=== PATIENT | male | born 1970 | race Caucasian/White ===

== ENCOUNTER 2017-09-14 09:04 | Emergency (ER) | payer BC, SELFPAY ==
[2017-09-14 09:22] VITALS: BP 149/94; PULSE 76; RESP 18; TEMP 37; O2SAT 97; BMI 31.4
--- NOTE | 2017-09-14 09:23 | HMH.EDUTC ---
[facility] [place] Clinical Impression: Lymphadenopathy, inguinal Disposition: Home, Self-Care Condition on Discharge: Good Instructions: DI for Lymphadenopathy Additional Instructions: Warm compresses. F/U with PCP if not improving Prescriptions: Doxycycline Monohydrate 100 mg PO BID 10 Days #20 tab Time of Disposition: 09:35 Medical Decision Making - Gabo Inquiry Pt receiving controlled substance: No [facility] [place] - General Stated complaint: knot in right groin Time Seen by Provider: 09/14/17 09:23 - History of Present Illness Provider Complaint: Patient noticed a knot in his right groin a few weeks ago. It seemed larger initially, but is getting smaller. However, has occasional episodes of pain. Pain has occurred after intercourse and yesterday after lifting at work. No bulging in the area. No worsening of pain with bearing down such as bowel movements. No dysuria. No discharge. No concern for STDs. Onset (ago): week(s) (2) Location: pelvis, genitals Radiation: non-radiation Relieving factors: none Exacerbating factors: none Associated symptoms: denies other symptoms Treatments prior to arrival: none - Related Data Previous Rx's Medication Instructions Recorded Doxycycline Monohydrate 100 mg PO BID 10 Days #20 tab 09/14/17 Allergies Allergy/AdvReac Type Severity Reaction Status Date / Time aspirin Allergy Verified 09/14/17 09:16 codeine Allergy Verified 09/14/17 09:16 [facility] History I have reviewed the patient's past medical history: Yes ROS Obtained: Yes All systems reviewed & no additional complaints - Constitutional Constitutional: Denies body ache, Denies chills, Denies fatigue, Denies fever(s) - Gastrointestinal Gastrointestingal: Denies: abdominal pain, diarrhea, vomiting - Genitourinary Male Genitourinary: Denies difficulty urinating, Denies genital lesions, Denies blood in semen, Denies hematuria, Denies decreased urination, Denies painful ejaculations Physical Exam - General General appearance: alert, in no apparent distress - Chest Chest inspection: Present: normal inspection, symmetric chest wall rise. Absent: tenderness - Respiratory Respiratory exam: Present: normal lung sounds bilaterally - Cardiovascular Cardiovascular exam: Present: regular rate, normal rhythm. Absent: JVD - Abdominal Exam Abdominal exam: Present: soft. Absent: distention, tenderness Comment: enlarged right inguinal node overlying ligament of Treitz with mild tenderness but mobile and not erythematous - exam: Absent: urethral discharge - Expanded Exam exam: Absent: inguinal hernia - Extremities Exam Extremities exam: Present: normal inspection, full ROM - Back Exam Back exam: Present: normal inspection. Absent: CVA tenderness (R), CVA tenderness (L) - Neurological Exam Neurological exam: Present: alert, oriented X3 - Psychiatric Psychiatric exam: Present: normal affect, normal mood - Skin Skin exam: Present: warm, dry, intact - Lymphatic Lymphatic Findings: R inguinal node tender
--- NOTE | 2017-09-14 09:28 | ED_ITS ---
[facility] [place] Clinical Impression: Lymphadenopathy, inguinal Disposition: Home, Self-Care Condition on Discharge: Good Instructions: DI for Lymphadenopathy Additional Instructions: Warm compresses. F/U with PCP if not improving Prescriptions: Doxycycline Monohydrate 100 mg PO BID 10 Days #20 tab Time of Disposition: 09:35 Medical Decision Making - Gabo Inquiry Pt receiving controlled substance: No [facility] [place] - General Stated complaint: knot in right groin Time Seen by Provider: 09/14/17 09:23 - History of Present Illness Provider Complaint: Patient noticed a knot in his right groin a few weeks ago. It seemed larger initially, but is getting smaller. However, has occasional episodes of pain. Pain has occurred after intercourse and yesterday after lifting at work. No bulging in the area. No worsening of pain with bearing down such as bowel movements. No dysuria. No discharge. No concern for STDs. Onset (ago): week(s) (2) Location: pelvis, genitals Radiation: non-radiation Relieving factors: none Exacerbating factors: none Associated symptoms: denies other symptoms Treatments prior to arrival: none - Related Data Previous Rx's Medication Instructions Recorded Doxycycline Monohydrate 100 mg PO BID 10 Days #20 tab 09/14/17 Allergies Allergy/AdvReac Type Severity Reaction Status Date / Time aspirin Allergy Verified 09/14/17 09:16 codeine Allergy Verified 09/14/17 09:16 [facility] History I have reviewed the patient's past medical history: Yes ROS Obtained: Yes All systems reviewed & no additional complaints - Constitutional Constitutional: Denies body ache, Denies chills, Denies fatigue, Denies fever(s) - Gastrointestinal Gastrointestingal: Denies: abdominal pain, diarrhea, vomiting - Genitourinary Male Genitourinary: Denies difficulty urinating, Denies genital lesions, Denies blood in semen, Denies hematuria, Denies decreased urination, Denies painful ejaculations Physical Exam - General General appearance: alert, in no apparent distress - Chest Chest inspection: Present: normal inspection, symmetric chest wall rise. Absent : tenderness - Respiratory Respiratory exam: Present: normal lung sounds bilaterally - Cardiovascular Cardiovascular exam: Present: regular rate, normal rhythm. Absent: JVD - Abdominal Exam Abdominal exam: Present: soft. Absent: distention, tenderness Comment: enlarged right inguinal node overlying ligament of Treitz with mild tenderness but mobile and not erythematous - exam: Absent: urethral discharge - Expanded Exam exam: Absent: inguinal hernia - Extremities Exam Extremities exam: Present: normal inspection, full ROM - Back Exam Back exam: Present: normal inspection. Absent: CVA tenderness (R), CVA tenderness (L) - Neurological Exam Neurological exam: Present: alert, oriented X3 - Psychiatric Psychiatric exam: Present: normal affect, normal mood - Skin Skin exam: Present: warm, dry, intact - Lymphatic Lymphatic Findings: R inguinal node tender
[2017-09-14 09:37] VITALS: BP 142/86; PULSE 72; RESP 18; TEMP 36.9; O2SAT 99
== END 2017-09-14 09:40 | disposition home or self-care (01) ==
PROVIDERS: Emergency Provider Physician Assistant
DX: R59.0 Localized enlarged lymph nodes (principal); Z88.6 Allergy status to analgesic agent
CPT/HCPCS: 99201

== ENCOUNTER 2020-07-01 10:06 | Emergency (ER) | payer BC, SELFPAY ==
[2020-07-01 10:10] VITALS: BP 188/105; PULSE 58; RESP 20; TEMP 36.5; O2SAT 98; BMI 31.4
--- NOTE | 2020-07-01 10:22 | HMH.EDUTC ---
[facility] [place] Impression: Exposure to COVID-19 virus Disposition: Home, Self-Care Condition on Discharge: Good Instructions: Preventing the Spread of Coronavirus Discharge Instructions Referrals: PCP,No [Primary Care Provider] - Time of Disposition: 10:26 Medical Decision Making - Gabo Inquiry Pt receiving controlled substance: No Orders (Tests/Meds): ORDERS Category Date Time Status Covid-19 Nasal PCR Sendout P&C Routine Lab 07/01/20 10:10 Ordered [facility] [place] - General Stated complaint: covid test for work Time Seen by Provider: 07/01/20 10:22 - History of Present Illness Provider Complaint: Patient needs COVID test to return to work. Was exposed at work and has been quarantined for 1 week. Relieving factors: none Exacerbating factors: none Associated symptoms: denies other symptoms Treatments prior to arrival: none - Related Data Allergies Allergy/AdvReac Type Severity Reaction Status Date / Time aspirin Allergy Verified 11/18/17 11:42 codeine Allergy Verified 11/18/17 11:42 [facility] History - Hepatitis A Screen Attestation statement:: This patient has been screened for Hepatitis A risk factors. I have reviewed the patient's past medical history: Yes Medical History: Denies:: Cancer, Diabetes Mellitus Type 1, Diabetes Mellitus Type 2, MRSA Other Surgeries: Yes: No Previous Surgery Amputation: No Fractures: No - Social History Smoking Status: Current every day smoker Tobacco Type: cigarettes # Packs/Day (cigarettes): 1 Alcohol Intake: never Occupational Status: employed Household Members: family Family Hx:: No significant family history ROS Obtained: Yes All systems reviewed & no additional complaints Physical Exam - General General appearance: alert, in no apparent distress - Head Head exam: atraumatic, normocephalic, normal inspection - Eye Eye exam: Present: normal appearance, PERRL, EOMI - ENT ENT exam: Present: normal exam, normal oropharynx, mucous membranes moist, TM's normal bilaterally, normal external ear exam - Neck Neck exam: Present: normal inspection, full ROM, trachea midline. Absent: meningismus, lymphadenopathy - Chest Chest inspection: Present: normal inspection, symmetric chest wall rise. Absent: tenderness - Respiratory Respiratory exam: Present: normal lung sounds bilaterally. Absent: respiratory distress - Cardiovascular Cardiovascular exam: Present: regular rate, normal rhythm. Absent: JVD - Abdominal Exam Abdominal exam: Present: soft, normal bowel sounds. Absent: distention, tenderness, guarding - Extremities Exam Extremities exam: Present: normal inspection, full ROM, normal capillary refill. Absent: calf tenderness - Back Exam Back exam: Present: normal inspection. Absent: tenderness - Neurological Exam Neurological exam: Present: alert, oriented X3 - Psychiatric Psychiatric exam: Present: normal affect, normal mood - Skin Skin exam: Present: warm, dry, intact, normal color - Lymphatic Lymphatic Findings: no adenopathy
[2020-07-01 10:40] VITALS: BP 188/105; PULSE 58; RESP 20; TEMP 36.5; O2SAT 98
[2020-07-02 11:53] LABS: Covid-19 Nasal PCR Sendout P&C Negative
== END 2020-07-01 10:42 | disposition home or self-care (01) ==
PROVIDERS: Emergency Provider Physician Assistant
DX: Z20.822 Contact with and (suspected) exposure to COVID-19 (principal); F17.210 Nicotine dependence, cigarettes, uncomplicated
CPT/HCPCS: 99202; G0463; U0004

== ENCOUNTER 2020-09-05 11:25 | Emergency (ER) | payer BC, SELFPAY ==
--- NOTE | 2020-09-05 11:18 | ECG_ITS ---
APPROVED REPORT Exam: Resting ECG HR:68 bpm ECG Measurements Heart Rate 68 AXES IN 148 P 46 QRSd 98 QRS -41 QT 392 T 34 QTc 416 Conclusion Normal sinus rhythm Left axis deviation Septal infarct, age undetermined Abnormal ECG Electronically signed by : Robert Reddy, 09/05/2020 17:20:22
[2020-09-05 11:26] VITALS: BP 185/119; PULSE 71; RESP 28; TEMP 37.3; O2SAT 97; BMI 31.4
--- NOTE | 2020-09-05 11:33 | XR_ITS ---
PROCEDURE: XR CHEST 2V CLINICAL HISTORY: CHEST PAIN COMPARISON: No exams were available for comparison FINDINGS: The cardiomediastinal silhouette and pulmonary vascularity are within normal limits. The lungs are clear without infiltrates, suspicious nodules, or pleural effusions. No acute bony abnormalities. IMPRESSION: No acute findings. Dictated by: Mateus Tong MD 09/05/2020 12:14 Mateus Tong MD in [place] 09/05/2020 12:15
[2020-09-05 11:49] LABS: Adenovirus,PCR Not Detected (NotDetected); Bordetella Pertussis Not Detected (NotDetected); Chlamydophila Pneumoniae, PCR Not Detected (NotDetected); Coronavirus 19, PCR Not Detected (NotDetected); Coronavirus 229E Not Detected (NotDetected); Coronavirus NL63 Not Detected (NotDetected); Coronavirus OC43 Not Detected (NotDetected); Coronovirus HKU1,PCR Not Detected (NotDetected); Human Metapneumovirus Not Detected (NotDetected); Influenza A, PCR Not Detected (NotDetected); Influenza AH1, 2009 Not Detected (NotDetected); Influenza AH1, PCR Not Detected (NotDetected); Influenza AH3,PCR Not Detected (NotDetected); Influenza B, PCR Not Detected (NotDetected); Mycoplasma Pneumoniae, PCR Not Detected (NotDetected); Parainfluenza 1, PCR Not Detected (NotDetected); Parainfluenza 2, PCR Not Detected (NotDetected); Parainfluenza 3, PCR Not Detected (NotDetected); Parainfluenza 4, PCR Not Detected (NotDetected); Respiratory Syncytial Virus Not Detected (NotDetected); Rhinovirus/Enterovirus Not Detected (NotDetected)
[2020-09-05 11:50] LABS: Basophils % 0.4 % (0.1-2.0); Eosinophils # 0.1 K/mm3 (0.0-0.4); Eosinophils % 0.9 % (0.1-12.0); Hematocrit 52.5 % (42.0-52.0); Hemoglobin 17.5 g/dL (14.1-18.0); Lymphocytes # 1.4 K/mm3 (0.7-4.5); Mean Corpuscular HGB Conc 33.2 g/dL (31.8-35.4); Mean Corpuscular Hemoglobin 30.9 pg (27.0-31.2); Mean Corpuscular Volume 92.9 fl (80-94); Mean Platelet Volume 8.8 fl (7.4-10.4); Monocytes # 0.6 K/mm3 (0.1-1.0); Monocytes % 11.1 % (1.7-9.3); Neutrophils # 3.5 K/mm3 (1.8-7.8); Neutrophils % 62.6 % (37.0-80.0); Platelet Count 176 K/mm3 (142-424); Red Blood Count 5.65 M/mm3 (4.60-6.20); Red Cell Distribution Width 13.7 % (11.5-17.5); White Blood Count 5.6 K/mm3 (4.8-10.8)
[2020-09-05 11:54] LABS: Chloride 107 mmol/L (98-107); Potassium 3.8 mmoL/L (3.5-5.1); Sodium 140 mmol/L (136-145)
[2020-09-05 11:57] LABS: Anion Gap 10.8 mEq/L (5-15); Blood Urea Nitrogen 8 mg/dl (9-20); Calcium 10.5 mg/dl (8.4-10.2); Carbon Dioxide 26 mmol/L (22.0-30.0); Creatinine Clearance Estimated 158 mL/min (50-200); Estimated Glomerular Filt Rate 102 ml/min (>60); GFR (African American) 123 ML/MIN (>60); Glucose 120 mg/dl (74-100)
[2020-09-05 11:58] LABS: Lactic Acid 1.7 mmol/L (0.7-2.1)
--- NOTE | 2020-09-05 12:00 | HMH.EDCP ---
ED Disposition Clinical Impression: URI (upper respiratory infection) Qualifiers: URI type: unspecified viral URI Qualified Code(s): J06.9 - Acute upper respiratory infection, unspecified Disposition: Home, Self-Care Condition on Discharge: Good Instructions: DI for Viral Upper Respiratory Infection -- Adult Referrals: David Todd MD [Staff Physician] - - Critical Care Critical Care Time: No Attestation: On 09/05/20, the high probability of a clinically significant, sudden or life threatening deterioration of the following system(s) required my full and direct attention, intervention and personal management. The time I documented below is in addition to time spent performing reported procedures but includes the following listed in this critical care notation. Medical Decision Making - Medical Records Medical records reviewed: Yes: I reviewed the patient's medical records. - Gabo Inquiry Pt receiving controlled substance: No Vital Signs: 09/05/20 11:26 09/05/20 12:01 09/05/20 12:31 Temperature 99.2 F Temperature Source Oral Pulse Rate 66 71 Pulse Rate [Radial] 71 Respiratory Rate 28 H 28 H 24 Blood Pressure 173/106 H 135/92 H Blood Pressure [Right Arm] 185/119 H Blood Pressure Mean 134 110 Blood Pressure Mean [Right Arm] 141 Blood Pressure Position [Right Arm] Sitting 02 Sat by Pulse Oximetry 97 96 96 Oxygen Delivery Method Room Air - Lab Data Lab Results 09/05/20 11:30: WBC 5.6, RBC 5.65, Hgb 17.5, Hct 52.5 H, MCV 92.9, MCH 30.9, MCHC 33.2, RDW 13.7, Plt Count 176, MPV 8.8, Neut % (Auto) 62.6, Lymph % (Auto) 25.0, [place] % (Auto) 11.1 H, Eos % (Auto) 0.9, Baso % (Auto) 0.4, Neut # (Auto) 3.5, Lymph # (Auto) 1.4, [place] # (Auto) 0.6, Eos # (Auto) 0.1, Baso # (Auto) 0.0 09/05/20 11:30: Sodium 140, Potassium 3.8, Chloride 107, Carbon Dioxide 26, Anion Gap 10.8, BUN 8 L, Creatinine 0.80, Estimated Creat Clear 158, Estimated GFR 102, Est GFR ( Amer) 123, Glucose 120 H, Calcium 10.5 H, Troponin I < 0.01 09/05/20 11:30: Lactate 1.7 Result diagrams: 09/05/20 11:30 09/05/20 11:30 Orders (Tests/Meds): ORDERS Category Date Time Status Full Resp Panel w/COVID ([facility]) Routine Lab 09/05/20 11:35 Received Troponin I Q3H Lab 09/05/20 14:45 Ordered Troponin I Q3H Lab 09/05/20 17:45 Ordered Blood Culture Stat Micro 09/05/20 11:30 Received - Radiology Data #1 Image(s): Chest Image Reviewed: Yes I reviewed the patient's radiology results, Yes I reviewed the patient's radiology image w/the ED provider Preliminary Findings: Normal/NAD - ECG Data Tracing #1 No ventricular rate of 68 bpm, normal SD interval 140 ms, normal QTC, sinus rhythm with left axis deviation, nonspecific changes ECG initial impression date: 09/05/20 ECG initial impression time: 11:20 - Reevaluation(s) Time: 13:13 Reevaluation #1: On reevaluation, patient is feeling better. Afebrile. No obvious sign of infection. I do believe symptoms are consistent with upper respiratory infection. We did obtain respiratory panel, however the patient states that he does not want to wait for the results. We will notify him if there are any significant abnormalities. Patient was given quarantine precautions per CDC guidelines. Given strict return precautions. Verbalized understanding. Medical Decision Narrative: 49-year-old male presented to the emergency department for evaluation of fever. Patient did take antipyretics prior to arrival. Work-up initiated. Chest Pain HPI - General Chief Complaint: Chest Pain Stated Complaint: CHEST PAIN Time Seen by Provider: 09/05/20 11:30 Mode of Arrival: Family Vehicle Limitations: No Limitations Description of Symptoms (Recalled from ER Triage Doc. by RN): TO ED PER PVT CAR WITH C/O FEVER OF 101 TODAY, PT ALSO C/O CHEST PRESSURE, COUGH STARTING WEDS SEEN AT [facility] AND DX WITH PLEURISY. STATES FEVER STARTED TODAY. - History of Present Illness
[2020-09-05 12:01] VITALS: BP 173/106; PULSE 66; RESP 28; O2SAT 96
[2020-09-05 12:15] LABS: Troponin I < 0.01 ng/ml (0.00-0.034)
[2020-09-05 12:31] VITALS: BP 135/92; PULSE 71; RESP 24; O2SAT 96
[2020-09-05 13:58] VITALS: BP 136/93; PULSE 76; RESP 18; TEMP 36.6; O2SAT 98
== END 2020-09-05 13:59 | disposition home or self-care (01) ==
PROVIDERS: Emergency Provider Emergency Medicine
DX: J06.9 Acute upper respiratory infection, unspecified (principal); R07.9 Chest pain, unspecified; I10 Essential (primary) hypertension; Z20.822 Contact with and (suspected) exposure to COVID-19; F17.210 Nicotine dependence, cigarettes, uncomplicated; Z88.6 Allergy status to analgesic agent
CPT/HCPCS: 71046; 80048; 83605; 84484; 85025; 87040; 87581; 87633; 87798; 93005; 99283

== ENCOUNTER 2021-09-30 07:14 | Inpatient (IN) | payer OTHER, SELFPAY ==
[2021-09-30] VITALS (14 sets, daily range): BP systolic 145–176; BP diastolic 82–109; PULSE 74–87; RESP 15–26; TEMP 36.6–36.9; O2SAT 91–98; BMI 31.4; BMI 29.9
--- NOTE | 2021-09-30 07:21 | PC.NURSE ---
pt in room, vital signs obtained, warm blanket given. Call light within reach. Nurses are bedside at this time.
--- NOTE | 2021-09-30 07:32 | CT_ITS ---
PROCEDURE INFORMATION: Exam: CT Abdomen And Pelvis With Contrast Exam date and time: 09/30/2021 8:03 AM Age: 51 years old Clinical indication: Abdominal pain; Generalized; Additional info: Abd pain TECHNIQUE: Imaging protocol: Computed tomography of the abdomen and pelvis with contrast. Radiation optimization: All CT scans at this facility use at least one of these dose optimization techniques: automated exposure control; mA and/or kV adjustment per patient size (includes targeted exams where dose is matched to clinical indication); or iterative reconstruction. Contrast material: ISOVUE; Contrast volume: 75 ml; Contrast route: IV; COMPARISON: CR XR CHEST 2V 09/05/2020 11:43 AM FINDINGS: Liver: Mild diffuse fatty infiltration. No focal lesions. Gallbladder and bile ducts: Normal. No calcified stones. No ductal dilation. Pancreas: Normal. No ductal dilation. Spleen: Normal. No splenomegaly. Adrenal glands: Normal. No mass. Kidneys and ureters: Simple right cortical cyst, measuring 6.8 cm. Otherwise, unremarkable. No stones or hydronephrosis. Stomach and bowel: Inspissated stool and gas in the colon. Scattered diverticula of the descending and sigmoid colon. There is an abrupt transition in caliber at the junction of the descending and sigmoid. The sigmoid and rectum are otherwise decompressed. The small intestine is unremarkable. No inflammatory change. No obstruction. Appendix: No evidence for appendicitis. Intraperitoneal space: Unremarkable. No free air. No significant fluid collection. Arteries: Unremarkable. No abdominal aortic aneurysm. Lymph nodes: Unremarkable. No enlarged lymph nodes. Urinary bladder: Unremarkable as visualized. Reproductive: The prostate gland measures 5.2 cm transversely. Bones/joints: Unremarkable. No acute fracture. Soft tissues: Unremarkable. IMPRESSION: 1. Abrupt transition in caliber between the descending colon and sigmoid may be inflammatory or neoplastic. 2. Large amount of inspissated stool and gas in the ascending colon, transverse colon, and descending colon. The finding is probably secondary to the lesion at the junction of the descending and sigmoid. Differential considerations also include constipation. 3. Colonic diverticular disease without diverticulitis. 4. Mild prostatic enlargement. COMMENTS: Consistent with the [employer]'s Incidental Findings Committee white paper (J Am Vivien Radiol 2018): Any incidental renal lesion less than 1 cm or classified as too small to characterize, or any incidental cystic renal lesion characterized as simple-appearing, is likely benign. No follow-up imaging is recommended for these lesions per consensus recommendations based on imaging criteria.
[2021-09-30 07:45] LABS: Basophils # 0.2 K/mm3 (0-0.2); Basophils % 1.5 % (0.1-2.0); Eosinophils # 0.1 K/mm3 (0.0-0.4); Eosinophils % 0.3 % (0.1-12.0); Hematocrit 52.9 % (42.0-52.0); Hemoglobin 17.4 g/dL (14.1-18.0); Lymphocytes % 13.1 % (10-50); Mean Corpuscular HGB Conc 32.9 g/dL (31.8-35.4); Mean Corpuscular Hemoglobin 31.3 pg (27.0-31.2); Mean Corpuscular Volume 95.3 fl (80-94); Mean Platelet Volume 9.2 fl (7.4-10.4); Monocytes # 0.9 K/mm3 (0.1-1.0); Monocytes % 6.2 % (1.7-9.3); Neutrophils % 78.8 % (37.0-80.0); Platelet Count 260 K/mm3 (142-424); Red Blood Count 5.56 M/mm3 (4.60-6.20); Red Cell Distribution Width 13.8 % (11.5-17.5); White Blood Count 15.2 K/mm3 (4.8-10.8)
[2021-09-30 07:50] LABS: Chloride 106 mmol/L (98-107); Potassium 3.6 mmoL/L (3.5-5.1); Sodium 139 mmol/L (136-145)
[2021-09-30 07:52] LABS: Amylase 50 U/L (30-110); Blood Urea Nitrogen 15 mg/dl (9-20); Creatinine Clearance Estimated 137 mL/min (50-200); Estimated Glomerular Filt Rate 88 ml/min (>60); GFR (African American) 107 ML/MIN (>60); Lactic Acid 1.4 mmol/L (0.7-2.1)
[2021-09-30 07:53] LABS: Alanine Aminotransferase 24 U/L (12-78); Albumin Level 4.3 g/dl (3.5-5.0); Albumin/Globulin Ratio 1.3 (1.1-1.8); Alkaline Phosphatase 119 U/L (38-126); Anion Gap 11.6 mEq/L (5-15); Aspartate Amino Transferase 24 U/L (17-59); Bilirubin,Total 1.3 mg/dl (0.2-1.3); Calcium 9.9 mg/dl (8.4-10.2); Carbon Dioxide 25 mmol/L (22.0-30.0); Globulin 3.3 g/dL (1.3-3.2); Glucose 125 mg/dl (74-100); Lipase 25 U/L (23-300); Total Protein,Serum 7.6 g/dl (6.3-8.2)
--- NOTE | 2021-09-30 08:02 | HMH.EDGENADL ---
ED Disposition Clinical Impression: Mass of colon, Bilirubinuria, Renal cyst Abdominal pain Qualifiers: Abdominal location: unspecified location Qualified Code(s): R10.9 - Unspecified abdominal pain Leukocytosis Qualifiers: Leukocytosis type: unspecified Qualified Code(s): D72.829 - Elevated white blood cell count, unspecified Disposition: Admitted As Inpatient Condition on Discharge: Fair Instructions: DI for Acute Abdominal Pain Referrals: Brandy Ramírez [Primary Care Provider] - - Critical Care Critical Care Time: No Attestation: On 09/30/21, the high probability of a clinically significant, sudden or life threatening deterioration of the following system(s) required my full and direct attention, intervention and personal management. The time I documented below is in addition to time spent performing reported procedures but includes the following listed in this critical care notation. Medical Decision Making - Medical Records Medical records reviewed: Yes: I reviewed the patient's medical records. MR Comment: Reviewed CT report from [facility] 11/23/2020. Impression states findings highly concerning for sigmoid colon mass. Dilatation of the colon above this level also is suggestive of a mild degree of obstruction. Diverticulitis is felt less likely. Endoscopic correlation is recommended. Nonspecific adenopathy as well. - Gabo Inquiry Pt receiving controlled substance: Yes Gabo was queried for this patient: Yes Risks and benefits of using a controlled substance: were not discussed with pt by me Vital Signs: 09/30/21 07:16 09/30/21 08:00 09/30/21 08:30 Temperature 98.2 F Temperature Source Oral Pulse Rate 77 74 Pulse Rate [Radial] 85 Respiratory Rate 16 Blood Pressure 176/100 H 168/103 H Blood Pressure [Right Arm] 170/109 H Blood Pressure Mean [Right Arm] 129 Blood Pressure Position [Right Arm] Sitting 02 Sat by Pulse Oximetry 98 95 96 Oxygen Delivery Method Room Air Room Air Room Air - Lab Data Lab Results 09/30/21 07:25: WBC 15.2 H, RBC 5.56, Hgb 17.4, Hct 52.9 H, MCV 95.3 H, MCH 31.3 H, MCHC 32.9, RDW 13.8, Plt Count 260, MPV 9.2, Neut % (Auto) 78.8, Lymph % (Auto) 13.1, [place] % (Auto) 6.2, Eos % (Auto) 0.3, Baso % (Auto) 1.5, Neut # (Auto) 12.0 H, Lymph # (Auto) 2.0, [place] # (Auto) 0.9, Eos # (Auto) 0.1, Baso # (Auto) 0.2, Total Counted 100, Neutrophils % (Manual) 77 H, Lymphocytes % (Manual) 14, Monocytes % (Manual) 8, Basophils % (Manual) 1.0, Platelet Estimate Normal, RBC Morphology Normal 09/30/21 07:25: Sodium 139, Potassium 3.6, Chloride 106, Carbon Dioxide 25, Anion Gap 11.6, BUN 15, Creatinine 0.90, Estimated Creat Clear 137, Estimated GFR 88, Est GFR ( Amer) 107, Glucose 125 H, Calcium 9.9, Total Bilirubin 1.3, AST 24, ALT 24, Alkaline Phosphatase 119, Total Protein 7.6, Albumin 4.3, Globulin 3.3 H, Albumin/Globulin Ratio 1.3, Amylase 50, Lipase 25 09/30/21 07:25: Lactate 1.4 09/30/21 07:25: Total Creatine Kinase 40 L, C-Reactive Protein 9.5 H 09/30/21 08:36: Urine Color Anita, Urine Appearance Clear, Urine pH 6.0, Ur Specific [place] 1.025, Urine Protein Negative, Urine Glucose (UA) Negative, Urine Ketones Negative, Urine Blood Trace-l, Urine Nitrate Positive, Urine Bilirubin 1+ A, Urine Urobilinogen 4.0, Ur Leukocyte Esterase Negative, Urine RBC Occasional, Urine WBC None, Ur Squamous Epith Cells Occasional, Amorphous Sediment Trace, Urine Bacteria Trace Result diagrams: 09/30/21 07:25 09/30/21 07:25 Orders (Tests/Meds): ED MEDICATIONS Generic Name Dose Route Start Last Admin Trade Name Freq PRN Reason Stop Dose Admin Levofloxacin/Dextrose 750 mg in 150 mls @ 100 mls/hr 09/30/21 09:30 Levofloxacin 750mg/150ml Premix IV 10/14/21 09:29 Q24H SAVITA Metronidazole 500 mg in 100 mls @ 100 mls/hr 09/30/21 09:30 Flagyl 500mg/100ml Ivpb IV 10/14/21 09:29 Q8H SAVITA Discontinued Medications Generic Name Dose Route Start Last Admin
--- NOTE | 2021-09-30 08:03 | PC.NURSE ---
pt to Ct scan
[2021-09-30 08:11] LABS: MANUAL DIFFERENTIAL MANUAL DIFFERENTIAL (MANUAL DIFF)
--- NOTE | 2021-09-30 08:11 | PC.NURSE ---
pt returned from CT
[2021-09-30 08:14] LABS: Lymphocytes % 14 % (10-50); Monocytes % 8 % (2-9); Neutrophils % 77 % (42-76); Platelet Estimate Normal; RBC Morphology Normal; Total Cells Counted 100
--- NOTE | 2021-09-30 08:24 | PC.WOUNDNOTE ---
PT STATES HE IS STILL UNABLE TO PROVIDE A URINARY SPECIMEN
--- NOTE | 2021-09-30 08:27 | PC.NURSE ---
FAMILY AT BEDSIDE UPDATED ON PLAN OF CARE
--- NOTE | 2021-09-30 08:30 | PC.NURSE ---
called [facility] at this time to get a copy of patient's CT report from October 2020. Spoke with one of the nurses on the Med surg unit, she was going to look through patients chart and try to find the report and call us back. Awaiting call back at this time. Updated Dr. Cherry at this time.
--- NOTE | 2021-09-30 08:39 | PC.NURSE ---
Urine sent to lab
--- NOTE | 2021-09-30 08:44 | PC.NURSE ---
Mary with Psychiatric returned call and stated that she found a CT report on this patient from November 2020. She is going to fax over the report. Awaiting fax at this time. Dr. Cherry notified.
[2021-09-30 08:46] LABS: Appearance,Urine CLEAR (Clear); Blood, Urine TRACE-L (Negative); Color,Urine AMBER (Yellow); Glucose,Urine (UA) Negative (Negative); Ketones,Urine Negative (Negative); Leukocyte Esterase,Urine Negative (Negative); Microscopic, Urine URINE MICROSCOPIC (MICROSCOPIC); Nitrate,Urine POSITIVE (Negative); Protein,Urine Negative (Negative); Specific Gravity, Urine 1.025 (1.005-1.030)
--- NOTE | 2021-09-30 08:51 | PC.NURSE ---
called [facility] again at this time to get a Colonoscopy report from where patient had done back in August of 2020. Spoke with Mary again.
--- NOTE | 2021-09-30 09:04 | PC.NURSE ---
Colonoscopy report and CT reports were obtained from [facility]. Given to Dr. Cherry at this time.
[2021-09-30 09:09] LABS: Bilirubin,Urine 1+ (Negative)
[2021-09-30 09:11] LABS: Amorphous Sediment,Urine Trace /lpf; Bacteria,Urine Trace /lpf; RBC,Urine Occasional #/hpf (0-3); Squamous Epithelial Cell,Urine Occasional #/hpf (0-5)
--- NOTE | 2021-09-30 09:21 | PC.NURSE ---
Called creping machine operator helper for who is protection mgr for service. Dr. Russo is the protection mgr physician. He is in office today until noon, awaiting on hold at this time. Dr. Otero answered the call at this time. Speaking with Dr. Cherry at this time.
[2021-09-30 09:25] LABS: Creatine Kinase 40 U/L (55-170)
--- NOTE | 2021-09-30 09:28 | PC.NURSE ---
REESE GARCIA on phone with Dr. Russo
--- NOTE | 2021-09-30 09:30 | PC.NURSE ---
called butadiene compressor operator for who was flight control manager for surgery. They are paging at this time. Awaiting call back to the ER.
--- NOTE | 2021-09-30 09:30 | PC.NURSE ---
Dr. Ruiz returned call to the ER and is speaking with Dr. Cherry at this time.
[2021-09-30 09:31] LABS: C-Reactive Protein 9.5 mg/L (0-4)
--- NOTE | 2021-09-30 09:31 | PC.NURSE ---
ED MD on phone with conservation educator surgeon, Dr. Arrieta
--- NOTE | 2021-09-30 09:33 | PC.NURSE ---
pt is in the room laying back on the bed, vital signs obtained, call light given to patient. Nurse is bedside at this time.
--- NOTE | 2021-09-30 09:34 | PC.NURSE ---
Spoke with clubhouse attendant about admission. will get a bed.
[2021-09-30 09:37] LABS: Coronavirus 19, PCR Not Detected (NotDetected); Influenza A, PCR Not Detected (NotDetected); Influenza B, PCR Not Detected (NotDetected)
[2021-09-30 09:43] LABS: Erythrocyte Sedimentation Rate 10 mm/hr (0-20)
[2021-09-30 09:45] LABS: Procalcitonin 0.085 ng/mL (0.0-2.0)
--- NOTE | 2021-09-30 10:21 | PC.NURSE ---
REPORT CALLED TO FLOOR
--- NOTE | 2021-09-30 10:38 | PC.NURSE ---
Med Surg staff down here to take patient upstairs to inpatient room.
--- NOTE | 2021-09-30 11:08 | HMH.HP ---
*Admission Date: 09/30/21 <BrandenDavid 09/30/21 11:09> *Chief complaint: Abdominal pain <David Otero 09/30/21 11:09> *History of present illness: Mr. Lopez is a 51-year-old male who presented to the emergency room today after approximately 30 episodes of vomiting and nausea. He states last weekend he had diarrhea, but has not had a good bowel movement since then. He had a small soft bowel movement on Saturday. He was evaluated in the emergency room and an abdominal and pelvic CT showed a large amount of stool in the colon, but also an abrupt transition in the caliber between the descending colon and sigmoid colon which could be inflammatory versus neoplastic. The patient has had a work-up in the past for this possible colon mass. He states last October he went to the ER because he had not had a bowel movement in approximately 2 weeks. They gave him mag citrate and sent him home. This did not help. His [id number] then found him in the floor after he had passed out and took him back to the emergency room in [facility]. At that point, a CT was done and showed findings concerning for a sigmoid colon mass. The patient was seen by Dr. Rojas Le and a colonoscopy was performed. He found pronounced diverticulosis and poor bowel prep with no obvious mucosal abnormality. The patient states after the colonoscopy, he had no further problems until last weekend. He does not regularly follow with his PCP and he has had no further colonoscopies. When reviewing the colonoscopy report by Dr. Le, it stated they wanted to follow-up with a barium enema in 6 months. The patient states he recently lost his and has been very depressed and does not leave his home. <Christie Garcia 09/30/21 11:24> [facility] History I have reviewed the patient's past medical history: Yes <Christie Garcia 09/30/21 11:24> Medical History: Reports:: Depression <Christie Garcia 09/30/21 11:24> Reports:: Gastroesophageal Reflux Disease(GERD), Hyperlipidemia, Hypertension Denies:: Cancer, Diabetes Mellitus Type 1, Diabetes Mellitus Type 2, MRSA <David Otero 09/30/21 11:09> *Have you ever received a pneumonia vaccine?: No <David Otero 09/30/21 11:09> *Have you received a flu vaccine this season?: No <BrandenDavid Arianne 09/30/21 11:09> Other Surgeries: Yes: Other (Vasctomy) <RadhaChristie 09/30/21 11:24> Yes: No Previous Surgery <BrandenDavid Arianne 09/30/21 11:09> Amputation: No <BrandenShiraDavid 09/30/21 11:09> Fractures: No <BrandenShiraDavid 09/30/21 11:09> - *Social History Smoking Status: Current every day smoker <BrandenDavid 09/30/21 11:09> Tobacco Type: cigarettes <BrandenDavid 09/30/21 11:09> # Packs/Day (cigarettes): 1 <BrandenDavid 09/30/21 11:09> Alcohol Intake: never <BrandenDavid 09/30/21 11:09> *Occupational Status:: other <[place],David 09/30/21 11:09> Household Members: family <BrandenDavid 09/30/21 11:09> *Travel in the last 8 weeks: None <Christie Garcia 09/30/21 11:24> Family Hx:: No significant family history <BrandenDavid 09/30/21 11:09> Review of Systems - Constitutional Reports chills, Reports fever(s) <RadhaChristie 09/30/21 11:24> - Eyes Denies blurry vision, Denies double vision <Christie Garcia 09/30/21 11:24> - ENT Denies nasal congestion, Denies sore throat <Christie Garcia 09/30/21 11:24> - *Cardiovascular Denies chest pain, Denies shortness of breath <Christie Garcia 09/30/21 11:24> - *Respiratory Denies cough, Denies shortness of breath <Christie Garcia 09/30/21 11:24> - *Gastrointestinal Reports abdominal pain (left sided), Reports constipation, Reports nausea, Reports vomiting, Denies loose stools <Christie Garcia 09/30/21 11:24> - *Genitourinary Reports other (urine is dark), Denies difficulty urinating <Christie Garcia - 09/30/21 11:24> - *Musculoskeletal Denies joint pain
--- NOTE | 2021-09-30 11:47 | HMH.PHAINT ---
MEDICATION RECONCILIATION COMPLETE VIA EXTERNAL PHARMACY FILL HISTORY AND PATIENT INTERVIEW.
--- NOTE | 2021-09-30 11:48 | HMH.PHAVTE ---
[facility] Pharmacy VTE Monitoring - Patient Demographics Admission date: 09/30/21 Report Date: 09/30/21 Time: 11:48 Allergies/Adverse Reactions: Patient Allergies aspirin Allergy (Verified 11/18/17 11:42) codeine Allergy (Verified 11/18/17 11:42) Height: 1.8 m Weight: 97.636 kg Patient Problems: Current Active Problems Abdominal pain (Acute) Mass of colon (Acute) Leukocytosis (Acute) Bilirubinuria (Acute) Renal cyst (Acute) Vomiting (Acute) Hypertension (Chronic) Hyperlipemia (Chronic) Depressed (Chronic) - VTE Risk Labs: VTE Related Lab Results Hgb 17.4 g/dL (14.1-18.0) 09/30/21 07:25 Hct 52.9 % (42.0-52.0) H 09/30/21 07:25 Plt Count 260 K/mm3 (142-424) 09/30/21 07:25 BUN 15 mg/dl (9-20) 09/30/21 07:25 Creatinine 0.90 mg/dl (0.66-1.25) 09/30/21 07:25 Estimated Creat Clear 137 mL/min (50-200) 09/30/21 07:25 Was VTE Risk Assessment Performed: Yes VTE Score: 1 Clinical Trial Participant: No - Prophylaxis VTE Prophylaxis Ordered?: Yes Types of VTE Prophylaxis: TEDS Knee High, Pharmacological Location of Applied Device: Bilateral Lower Extremeties Pharmacologic Type: Enoxaparin
--- NOTE | 2021-09-30 17:01 | HMH.GSCON ---
*Admission Date: 09/30/21 *Reason for consult:: Large bowel obstruction. *History of present illness: Mr. Willis is a 51-year-old male that presents with near obstipation. Decreased frequency of bowel movement. Decreased frequency of flatus. Acute over the past week. However, patient reports occasional episodes over the past year. Colonoscopy completed at [facility]. Results not available for review. Patient does report that subsequent barium enema was requested. He is unaware of the results of that study. No family history of colon cancer or rectal cancer. No significant reports of personal diverticulitis. No other complaints. Patient's personal care has been affected by losing spouse in the past 3 to 4 months. Review of Systems - Review of Systems Review of systems:: pertinent systems reviewed and negative unless documented below - *Neurologic Reports weakness, Denies headache(s), Denies dizziness [facility] History Medical History: Reports:: Depression, Gastroesophageal Reflux Disease(GERD), Hyperlipidemia, Hypertension Denies:: Cancer, Diabetes Mellitus Type 1, Diabetes Mellitus Type 2, MRSA *Have you ever received a pneumonia vaccine?: No *Have you received a flu vaccine this season?: No Other Surgeries: Yes: No Previous Surgery, Other (Vasctomy) Amputation: No Fractures: No - *Social History Smoking Status: Current every day smoker Tobacco Type: cigarettes # Packs/Day (cigarettes): 1 Alcohol Intake: never *Occupational Status:: unemployed Housing: house Household Members: family *Travel in the last 8 weeks: None - Psychiatric History Pschychiatric History:: Reports:: Depression Family Hx:: No significant family history Meds Home Medications Medication Instructions Recorded Confirmed Type Atorvastatin Calcium [Lipitor 20mg 20 mg PO HS 09/30/21 09/30/21 History Tab] Buspirone HCl [Buspar 5mg tablet] 5 mg PO TID 09/30/21 09/30/21 History Escitalopram Oxalate [Lexapro] 10 mg PO DAILY 09/30/21 09/30/21 History Pantoprazole Sodium 40 mg PO HS 09/30/21 09/30/21 History Quetiapine Fumarate [Seroquel 100 mg PO HS 09/30/21 09/30/21 History 100mg tablet] lisinopriL [Lisinopril] 10 mg PO DAILY 09/30/21 09/30/21 History Allergies Allergy/AdvReac Type Severity Reaction Status Date / Time aspirin Allergy Verified 11/18/17 11:42 codeine Allergy Verified 11/18/17 11:42 Exam Vital signs and Labs for Last 24 Hours: Temp Pulse Resp BP Pulse Ox 98.4 F 75 15 173/108 H 92 L 09/30/21 16:00 09/30/21 16:00 09/30/21 16:00 09/30/21 16:00 09/30/21 16:00 Laboratory Results - last 24 hr 09/30/21 07:25: WBC 15.2 H, RBC 5.56, Hgb 17.4, Hct 52.9 H, MCV 95.3 H, MCH 31.3 H, MCHC 32.9, RDW 13.8, Plt Count 260, MPV 9.2, Neut % (Auto) 78.8, Lymph % (Auto) 13.1, [place] % (Auto) 6.2, Eos % (Auto) 0.3, Baso % (Auto) 1.5, Neut # (Auto) 12.0 H, Lymph # (Auto) 2.0, [place] # (Auto) 0.9, Eos # (Auto) 0.1, Baso # (Auto) 0.2, Total Counted 100, Neutrophils % (Manual) 77 H, Lymphocytes % (Manual) 14, Monocytes % (Manual) 8, Basophils % (Manual) 1.0, Platelet Estimate Normal, RBC Morphology Normal 09/30/21 07:25: Sodium 139, Potassium 3.6, Chloride 106, Carbon Dioxide 25, Anion Gap 11.6, BUN 15, Creatinine 0.90, Estimated Creat Clear 137, Estimated GFR 88, Est GFR ( Amer) 107, Glucose 125 H, Calcium 9.9, Total Bilirubin 1.3, AST 24, ALT 24, Alkaline Phosphatase 119, Total Protein 7.6, Albumin 4.3, Globulin 3.3 H, Albumin/Globulin Ratio 1.3, Amylase 50, Lipase 25 09/30/21 07:25: Lactate 1.4 09/30/21 07:25: Total Creatine Kinase 40 L, C-Reactive Protein 9.5 H 09/30/21 07:25: ESR 10 09/30/21 07:25: Procalcitonin 0.085 09/30/21 08:36: Urine Color [place], Urine Appearance Clear, Urine pH 6.0, Ur Specific [place] 1.025, Urine Protein Negative, Urine Glucose (UA) Negative, Urine Ketones Negative, Urine Blood Trace-l, Urine Nitrate Positive, Urine Bilirubin 1+ A, Urine Urobilinogen 4.0, Ur Leukocyte Esterase Ne
--- NOTE | 2021-09-30 17:15 | HMH.ITSTN ---
spoke to Eb and advised that this procedure will not be done till Saturday. She is going to let the DrBrendan know. Will be done Saturday with radiologists
--- NOTE | 2021-09-30 17:47 | PC.NURSE ---
PT IS RESTING IN BED. ALERT AND ORIENTED X4. MEDICATED PER MAR FOR DISCOMFORT AND NAUSEA. PT IS TAKING SIPS OF CLEAR LIQUIDS. LUNG SOUNDS CLEAR. ABDOMEN DISTENDED WITH RIGHT SIDED TENDERNESS. WILL CONTINUE TO MONITOR.
[2021-10-01] VITALS: BP 155/87; PULSE 85; RESP 22; TEMP 36.3; O2SAT 91
[2021-10-01 04:00] VITALS: BP 137/73; PULSE 78; RESP 20; TEMP 36.9; O2SAT 90
[2021-10-01 05:35] VITALS: BMI 30.4
[2021-10-01 07:44] LABS: Basophils # 0.1 K/mm3 (0-0.2); Basophils % 0.4 % (0.1-2.0); Eosinophils % 0.2 % (0.1-12.0); Hematocrit 46.6 % (42.0-52.0); Lymphocytes # 2.2 K/mm3 (0.7-4.5); Lymphocytes % 16.5 % (10-50); Mean Corpuscular HGB Conc 33.4 g/dL (31.8-35.4); Mean Corpuscular Hemoglobin 31.8 pg (27.0-31.2); Mean Platelet Volume 9.7 fl (7.4-10.4); Monocytes # 1.1 K/mm3 (0.1-1.0); Monocytes % 8.5 % (1.7-9.3); Neutrophils # 9.8 K/mm3 (1.8-7.8); Neutrophils % 74.4 % (37.0-80.0); Platelet Count 240 K/mm3 (142-424); Red Cell Distribution Width 13.8 % (11.5-17.5); White Blood Count 13.2 K/mm3 (4.8-10.8)
[2021-10-01 07:51] LABS: Chloride 107 mmol/L (98-107)
[2021-10-01 07:52] LABS: Potassium 3.9 mmoL/L (3.5-5.1); Sodium 136 mmol/L (136-145)
[2021-10-01 07:54] LABS: Blood Urea Nitrogen 18 mg/dl (9-20); Creatinine Clearance Estimated 149 mL/min (50-200); Estimated Glomerular Filt Rate 101 ml/min (>60); GFR (African American) 122 ML/MIN (>60)
[2021-10-01 07:55] LABS: Anion Gap 7.9 mEq/L (5-15); Calcium 9.3 mg/dl (8.4-10.2); Carbon Dioxide 25 mmol/L (22.0-30.0); Glucose 97 mg/dl (74-100)
[2021-10-01 08:00] VITALS: BP 146/86; PULSE 80; RESP 18; TEMP 36.7; O2SAT 90; O2SAT 91
--- NOTE | 2021-10-01 08:33 | HMH.ACPN2 ---
Internal Medicine - PN: Subj *Date: 10/01/21 *Time: 08:33 Interval history: Patient with no new complaints today. Nausea and vomiting have improved with treatment. He has taken a few sips of water. Exam Vital signs and Labs for Last 24 Hours: Temp Pulse Resp BP Pulse Ox 98.4 F 78 20 137/73 90 L 10/01/21 04:00 10/01/21 04:00 10/01/21 04:00 10/01/21 04:00 10/01/21 04:00 Laboratory Results - last 24 hr 09/30/21 07:25: Total Creatine Kinase 40 L, C-Reactive Protein 9.5 H 09/30/21 07:25: ESR 10 09/30/21 07:25: Procalcitonin 0.085 09/30/21 08:36: Urine Color [place], Urine Appearance Clear, Urine pH 6.0, Ur Specific [place] 1.025, Urine Protein Negative, Urine Glucose (UA) Negative, Urine Ketones Negative, Urine Blood Trace-l, Urine Nitrate Positive, Urine Bilirubin 1+ A, Urine Urobilinogen 4.0, Ur Leukocyte Esterase Negative, Urine RBC Occasional, Urine WBC None, Ur Squamous Epith Cells Occasional, Amorphous Sediment Trace, Urine Bacteria Trace 09/30/21 09:20: SARS-CoV-2 (PCR) Not detected, Influenza A Untype (PCR) Not detected, Influenza Type B (PCR) Not detected 10/01/21 06:50: Sodium 136, Potassium 3.9, Chloride 107, Carbon Dioxide 25, Anion Gap 7.9, BUN 18, Creatinine 0.80, Estimated Creat Clear 149, Estimated GFR 101, Est GFR ( Amer) 122, Glucose 97 D, Calcium 9.3 Vital Signs - 24 hr 09/30/21 09:00 09/30/21 09:30 09/30/21 09:53 Temperature Pulse Rate 75 77 75 Pulse Rate [Radial] Respiratory Rate Blood Pressure 176/105 H 173/105 H 145/84 H Blood Pressure [Right Arm] 02 Sat by Pulse Oximetry 95 95 91 L 09/30/21 10:00 09/30/21 10:30 09/30/21 10:36 Temperature Pulse Rate 77 78 74 Pulse Rate [Radial] Respiratory Rate Blood Pressure 147/82 H 151/82 H 162/96 H Blood Pressure [Right Arm] 02 Sat by Pulse Oximetry 92 L 92 L 94 L 09/30/21 10:44 09/30/21 10:55 09/30/21 16:00 Temperature 98 F 98.3 F 98.4 F Pulse Rate 87 Pulse Rate [Radial] 83 75 Respiratory Rate 26 H 17 15 Blood Pressure 175/100 H Blood Pressure [Right Arm] 162/96 H 173/108 H 02 Sat by Pulse Oximetry 93 L 92 L 09/30/21 19:55 09/30/21 20:00 10/01/21 00:00 Temperature 98.4 F 97.4 F L Pulse Rate Pulse Rate [Radial] 76 85 Respiratory Rate H 22 Blood Pressure Blood Pressure [Right Arm] 161/93 H 155/87 H 02 Sat by Pulse Oximetry 91 L 91 L 91 L 10/01/21 04:00 Temperature 98.4 F Pulse Rate Pulse Rate [Radial] 78 Respiratory Rate 20 Blood Pressure Blood Pressure [Right Arm] 137/73 02 Sat by Pulse Oximetry 90 L I & O for Last 24 hours: Intake & Output 09/28/21 09/29/21 09/30/21 10/01/21 23:59 23:59 23:59 23:59 Intake Total 941 / 941 405 / 405 Balance 941 / 941 405 / 405 Weight 215 lb 4 oz 217 lb 8 oz - Constitutional no acute distress - *Routine HEENT Exam Head: Present: normocephalic Eye: Present: EOMI, PERRL ENT: Present: mucous membranes moist - *Routine Neck Exam Present: supple. Absent: lymphadenopathy - *Routine Respiratory Exam Present: CTA bilaterally - *Routine Cardiovascular Exam Present: RRR - *Routine Abdominal Exam Present: soft, normoactive bowel sounds, tenderness (left sided, more in LLQ) - *Routine Extremities Exam Absent: cyanosis, clubbing, edema - *Routine Skin Exam Present: warm. Absent: rash - *Routine Neurological Exam Present: alert, oriented X3 Assessment and Plan (1) Abdominal pain Status: Acute Qualifiers: Abdominal location: unspecified location Qualified Code(s): R10.9 - Unspecified abdominal pain Category: Medical Code(s): R10.9 - Unspecified abdominal pain (2) Bilirubinuria Status: Acute Category: Medical Code(s): R82.2 - Biliuria (3) Leukocytosis Status: Acute Qualifiers: Leukocytosis type: unspecified Qualified Code(s): D72.829 - Elevated white blood cell count, unspecified Category: Medical Code(s): D72.829 - Elevated white blood cell count, unspecif
[2021-10-01 08:45] LABS: Hemoglobin 15.5 g/dL (14.1-18.0)
[2021-10-01 16:00] VITALS: BP 108/88; PULSE 75; RESP 16; TEMP 37.1; O2SAT 92
--- NOTE | 2021-10-01 17:58 | P.PN_ITS ---
Subjective Narrative: Mr. Willis is a 51-year-old male with partial large bowel obstruction secondary to suspected diverticular stricture. Passing flatus. Tolerating few sips. Abdominal pain and distention have improved. Labs improved. Progress Note: A&P (1) Abdominal pain Status: Acute (2) Bilirubinuria Status: Acute (3) Leukocytosis Status: Acute (4) Mass of colon Status: Acute (5) Renal cyst Status: Acute (6) Vomiting Status: Acute Assessment and Plan for All Diagnoses:: Large bowel obstruction. Suspected benign diverticular stricture. Pending Gastrografin enema tomorrow. Exam Vital signs and Labs for Last 24 Hours: Temp Pulse Resp BP Pulse Ox 98.1 F 80 18 146/86 H 91 L 10/01/21 08:00 10/01/21 08:00 10/01/21 08:00 10/01/21 08:00 10/01/21 08:00 Laboratory Results - last 24 hr 10/01/21 06:50: WBC 13.2 H, RBC 4.90, Hgb 15.5 D, Hct 46.6, MCV 95.0 H, MCH 31.8 H, MCHC 33.4, RDW 13.8, Plt Count 240, MPV 9.7, Neut % (Auto) 74.4, Lymph % (Auto) 16.5, [place] % (Auto) 8.5, Eos % (Auto) 0.2, Baso % (Auto) 0.4, Neut # (Auto) 9.8 H, Lymph # (Auto) 2.2, [place] # (Auto) 1.1 H, Eos # (Auto) 0.0, Baso # (Auto) 0.1 10/01/21 06:50: Sodium 136, Potassium 3.9, Chloride 107, Carbon Dioxide 25, Anion Gap 7.9, BUN 18, Creatinine 0.80, Estimated Creat Clear 149, Estimated GFR 101, Est GFR ( Amer) 122, Glucose 97 D, Calcium 9.3 I & O for Last 24 hours: Intake & Output 09/29/21 09/30/21 10/01/21 10/02/21 11:59 11:59 11:59 11:59 Intake Total 1346 / 1346 Balance 1346 / 1346 Weight 97.636 kg 98.656 kg - *Routine Abdominal Exam Comments: Soft. Nontender.
[2021-10-01 20:00] VITALS: BP 153/98; PULSE 80; RESP 18; TEMP 37.3; O2SAT 93
--- NOTE | 2021-10-02 03:47 | PC.NURSE ---
No acute changes. Pt has c/o pain in LLQ t/o shift, medicated per AUG. Pt states favorable results. Tolerating clear liquids well. No c/o n/v. Call light within reach.
[2021-10-02 04:00] VITALS: BP 138/87; PULSE 71; RESP 16; TEMP 37.2; O2SAT 94
[2021-10-02 04:31] VITALS: BMI 29.8
[2021-10-02 08:00] VITALS: BP 162/90; PULSE 70; RESP 17; TEMP 36.7; O2SAT 93
--- NOTE | 2021-10-02 09:31 | P.PN_ITS ---
Internal Medicine - PN: Subj *Date: 10/02/21 *Time: 09:31 Interval history: Patient with no new complaints today. Exam Vital signs and Labs for Last 24 Hours: Temp Pulse Resp BP Pulse Ox 98.0 F 70 17 162/90 H 93 L 10/02/21 08:00 10/02/21 08:00 10/02/21 08:00 10/02/21 08:00 10/02/21 08:00 I & O for Last 24 hours: Intake & Output 09/29/21 09/30/21 10/01/21 10/02/21 23:59 23:59 23:59 23:59 Intake Total 941 / 941 405 / 405 Balance 941 / 941 405 / 405 Weight 215 lb 4 oz 217 lb 8 oz 213 lb 6.4 oz - Constitutional no acute distress - *Routine Respiratory Exam Present: CTA bilaterally - *Routine Cardiovascular Exam Present: RRR Assessment and Plan (1) Abdominal pain Status: Acute Qualifiers: Abdominal location: unspecified location Qualified Code(s): R10.9 - Unspe cified abdominal pain Category: Medical Code(s): R10.9 - Unspecified abdominal pain (2) Bilirubinuria Status: Acute Category: Medical Code(s): R82.2 - Biliuria (3) Leukocytosis Status: Acute Qualifiers: Leukocytosis type: unspecified Qualified Code(s): D72.829 - Elevated white blood cell count, unspecified Category: Medical Code(s): D72.829 - Elevated white blood cell count, unspecified (4) Mass of colon Status: Acute Category: Medical Code(s): K63.89 - Other specified diseases of intestine (5) Renal cyst Status: Acute Category: Medical Code(s): N28.1 - Cyst of kidney, acquired (6) Vomiting Status: Acute Category: Medical Code(s): R11.10 - Vomiting, unspecified - Assessment and plan all Dx Assessment and Plan for all problems:: Patient to have gastrografin enema today.
[2021-10-02 12:09] LABS: CEA 4.2 ng/mL (0.0-4.7)
[2021-10-02 16:00] VITALS: BP 158/93; PULSE 72; RESP 17; TEMP 36.6; O2SAT 93
[2021-10-02 16:15] VITALS: BMI 29.8
--- NOTE | 2021-10-02 17:01 | PC.NURSE ---
PT TO ROOM 280 AT THIS TIME. NO C/O OR NEEDS NOTED.
--- NOTE | 2021-10-02 17:05 | FL_ITS ---
FINAL REPORT CLINICAL HISTORY: . large bowel obstruction 2:31 fluoro time FINDINGS: Gastrografin enema HISTORY: Abnormal CT scan. Colonic obstruction. PROCEDURE: Single-contrast Gastrografin was introduced by gravity drip. Spot and overhead films were obtained. FINDINGS: Label Designer film demonstrates diffuse gaseous distention of the proximal colon. There is a high-grade stricture of the proximal sigmoid colon with irregular borders. Contrast is identified to the level of the cecum. Evaluation of the transverse colon is significantly limited related to retained air. There is a large amount of retained stool within the ascending and descending colon which limits the study. No obvious stricture is identified proximal to the sigmoid colon. IMPRESSION: High-grade stricture of the proximal sigmoid colon with irregular borders highly worrisome for neoplasm. Endoscopic correlation recommended. Films reviewed , interpreted and dictated by Dr. Garcias. Transcribed by Nicholas Carter PA-C. Reviewed, Interpreted and Dictated by Arsenio Garcias III, MD Transcribed by TIMOTHY Casarez Authenticated by Arsenio Garcias III, MD on 10/02/2021 11:41:33 AM [facility]
--- NOTE | 2021-10-02 17:19 | PC.NURSE ---
patient moved to room 280 gave report to DANIA Wells
[2021-10-02 20:00] VITALS: BP 153/88; PULSE 78; RESP 19; TEMP 36.8; O2SAT 94
[2021-10-03] VITALS (17 sets, daily range): BP systolic 106–156; BP diastolic 66–96; PULSE 62–71; RESP 12–20; TEMP 36.3–37.1; O2SAT 93–98; BMI 29.7
--- NOTE | 2021-10-03 04:44 | PC.NURSE ---
PT HAS SLEPT OFF AND ON THROUGHTOUT THE NIGHT,SHE DENIES ANY PAIN AT HER KNEE,JUST SORE AND DECLINES ANY PAIN MEDICINE FOR IT,SHE DID TAKE SOME TYLENOL FOR A H/A,SHE HAD TAKEN HER OXYGEN OFF AND SAID IT WAS BURNING HER NOSE,HER SAT LEVEL ON RA WAS 90-92,REAPPLIED THE OXYGEN AT 2 LITERS PER N/C.NO DRAINAGE NOTED TO THE DRESSING,POLOR PACK AND KNEE MOBILIZER REMAIN IN PLACE,F/C DRAINING CLEAR YELLOW URINE
--- NOTE | 2021-10-03 04:54 | PC.NURSE ---
PT HAS SLEPT MOST OF THE NIGHT,UP TO BATHROOM THIS MORNING ANOTHER LIQUID STOOL,MEDICATED WITH MORPHINE 4 MG IVP FOR A PAIN OF 9,THIS HAS BEEN THE 2ND DOSE OF MORPHINE THIS SHIFT.BOWEL SOUNDS HYPERACTIVE,TENDER ON THE LEFT LOWER QUAD.
--- NOTE | 2021-10-03 06:28 | P.PN_ITS ---
Subjective Narrative: Patient is a 51-year-old who had presented with obstipation and decreased frequency of bowel movements and decreased flatus. He has had some symptoms intermittently over approximately 1 year but this became acutely more significant and severe over the past week leading up to his admission. This was noted on CT scan in November 2020 initially in [place] at [facility]. It appears as though he underwent flexible sigmoidoscopy by Dr. Rojas le which revealed no sigmoid mass. He did have a follow-up colonoscopy by Dr. Le in December 2020 which revealed no sigmoid mass but poor preparation in the region of the sigmoid. He was planning a follow-up barium enema in 6 months. Patient was admitted to this institution on 09/30/21 with obstipation and nausea. CT Scan revealed abrupt transition in caliber between descending colon and sigmoid: May be inflammatory or neoplastic. Large amount of and septated stool and gas in the a sending colon, transverse colon, and ascending colon. During this admission he was seen by the surgeon on-call over the weekend, Dr. Azar Arrieta. Patient underwent Gastrografin enema yesterday which revealed findings of high-grade stricture at the proximal sigmoid colon with irregular borders highly worrisome for neoplasm. Endoscopic correlation recommended. He has had no known history of diverticulitis. Surgical consultation was obtained for ongoing management. Progress Note: A&P (1) Abdominal pain Status: Acute (2) Bilirubinuria Status: Acute (3) Leukocytosis Status: Acute (4) Mass of colon Status: Acute (5) Renal cyst Status: Acute (6) Vomiting Status: Acute Assessment and plan: Likely plan for sigmoidoscopy for evaluation Exam Vital signs and Labs for Last 24 Hours: Temp Pulse Resp BP Pulse Ox 98.5 F 71 20 152/82 H 94 L 10/03/21 04:00 10/03/21 04:00 10/03/21 04:00 10/03/21 04:00 10/03/21 04:00 Laboratory Results - last 24 hr 10/01/21 06:50: Carcinoembryonic Ag 4.2 I & O for Last 24 hours: Intake & Output 09/30/21 10/01/21 10/02/21 10/03/21 11:59 11:59 11:59 11:59 Intake Total 1346 / 1346 120 / 120 950 / 950 Balance 1346 / 1346 120 / 120 950 / 950 Weight 215 lb 4 oz 217 lb 8 oz 213 lb 6.4 oz 212 lb 1 oz Microbiology Reports for the Last 24 Hours: Microbiology 09/30/21 09:45 Blood Blood Culture - Preliminary NO GROWTH AFTER 48 HOURS 09/30/21 09:45 Blood Blood Culture - Preliminary NO GROWTH AFTER 48 HOURS - *Routine Abdominal Exam Present: soft, tenderness Comments: Some tenderness in the left upper quadrant and left lower quadrant.
[2021-10-03 07:16] LABS: Basophils # 0.1 K/mm3 (0-0.2); Basophils % 0.7 % (0.1-2.0); Eosinophils # 0.1 K/mm3 (0.0-0.4); Eosinophils % 0.9 % (0.1-12.0); Hematocrit 45.5 % (42.0-52.0); Hemoglobin 14.9 g/dL (14.1-18.0); Lymphocytes # 2.2 K/mm3 (0.7-4.5); Lymphocytes % 18.9 % (10-50); Mean Corpuscular HGB Conc 32.7 g/dL (31.8-35.4); Mean Corpuscular Hemoglobin 31.2 pg (27.0-31.2); Mean Corpuscular Volume 95.4 fl (80-94); Mean Platelet Volume 9.1 fl (7.4-10.4); Monocytes # 1.1 K/mm3 (0.1-1.0); Neutrophils # 8.3 K/mm3 (1.8-7.8); Neutrophils % 70.6 % (37.0-80.0); Platelet Count 214 K/mm3 (142-424); Red Blood Count 4.77 M/mm3 (4.60-6.20); Red Cell Distribution Width 13.7 % (11.5-17.5); White Blood Count 11.8 K/mm3 (4.8-10.8)
[2021-10-03 07:47] LABS: Chloride 108 mmol/L (98-107); Sodium 134 mmol/L (136-145)
[2021-10-03 07:50] LABS: Blood Urea Nitrogen 13 mg/dl (9-20); Calcium 9.4 mg/dl (8.4-10.2); Carbon Dioxide 22 mmol/L (22.0-30.0); Creatinine Clearance Estimated 166 mL/min (50-200); Estimated Glomerular Filt Rate 118 ml/min (>60); GFR (African American) 143 ML/MIN (>60); Glucose 88 mg/dl (74-100)
--- NOTE | 2021-10-03 08:41 | HMH.ACPN2 ---
<Minal Olivera - Last Filed: 10/03/21 08:41> Internal Medicine - PN: Subj *Date: 10/03/21 *Time: 08:41 Interval history: Patient states he does not feel well today. He is n.p.o. for colonoscopy today. He has been seen by Dr. Rolando [email or web address] [email or web address] Who notes findings of Gastrografin enema yesterday revealing a high-grade stricture at the proximal sigmoid colon with irregular borders highly worrisome for neoplasm. Patient denies chest pain and shortness of breath. He ambulates to the bathroom without difficulty. Exam Vital signs and Labs for Last 24 Hours: Temp Pulse Resp BP Pulse Ox 98.5 F 71 20 152/82 H 94 L 10/03/21 04:00 10/03/21 04:00 10/03/21 04:00 10/03/21 04:00 10/03/21 04:00 Laboratory Results - last 24 hr 10/01/21 06:50: Carcinoembryonic Ag 4.2 10/03/21 06:50: WBC 11.8 H, RBC 4.77, Hgb 14.9, Hct 45.5, MCV 95.4 H, MCH 31.2, MCHC 32.7, RDW 13.7, Plt Count 214, MPV 9.1, Neut % (Auto) 70.6, Lymph % (Auto) 18.9, Bay % (Auto) 9.0, Eos % (Auto) 0.9, Baso % (Auto) 0.7, Neut # (Auto) 8.3 H, Lymph # (Auto) 2.2, Bay # (Auto) 1.1 H, Eos # (Auto) 0.1, Baso # (Auto) 0.1 10/03/21 06:50: Sodium 134 L, Potassium 4.0, Chloride 108 H, Carbon Dioxide 22, Anion Gap 8.0, BUN 13 D, Creatinine 0.70, Estimated Creat Clear 166, Estimated GFR 118, Est GFR ( Amer) 143, Glucose 88, Calcium 9.4 I & O for Last 24 hours: Intake & Output 09/30/21 10/01/21 10/02/21 10/03/21 11:59 11:59 11:59 11:59 Intake Total 1346 / 1346 120 / 120 2350 / 2350 Balance 1346 / 1346 120 / 120 2350 / 2350 Weight 215 lb 4 oz 217 lb 8 oz 213 lb 6.4 oz 212 lb 1 oz Microbiology Reports for the Last 24 Hours: Microbiology 09/30/21 09:45 Blood Blood Culture - Preliminary NO GROWTH AFTER 48 HOURS 09/30/21 09:45 Blood Blood Culture - Preliminary NO GROWTH AFTER 48 HOURS - Constitutional no acute distress - *Routine Respiratory Exam Present: CTA bilaterally (Anteriorly and posteriorly) - *Routine Cardiovascular Exam Present: RRR - *Routine Abdominal Exam Present: soft, normoactive bowel sounds, tenderness (In the left quadrants) - *Routine Extremities Exam Absent: edema, calf tenderness Assessment and Plan (1) Abdominal pain Status: Acute Qualifiers: Abdominal location: unspecified location Qualified Code(s): R10.9 - Unspecified abdominal pain Category: Medical Code(s): R10.9 - Unspecified abdominal pain (2) Bilirubinuria Status: Acute Category: Medical Code(s): R82.2 - Biliuria (3) Leukocytosis Status: Acute Qualifiers: Leukocytosis type: unspecified Qualified Code(s): D72.829 - Elevated white blood cell count, unspecified Category: Medical Code(s): D72.829 - Elevated white blood cell count, unspecified (4) Mass of colon Status: Acute Category: Medical Code(s): K63.89 - Other specified diseases of intestine (5) Renal cyst Status: Acute Category: Medical Code(s): N28.1 - Cyst of kidney, acquired (6) Vomiting Status: Acute Category: Medical Code(s): R11.10 - Vomiting, unspecified - Assessment and plan all Dx Assessment and Plan for all problems:: Patient continues to be followed by Dr. Marshall. Will have colonoscopy today. <David Otero - Last Filed: 10/03/21 08:51> Internal Medicine - PN: Subj *Date: 10/03/21 *Time: 08:49 Exam Vital signs and Labs for Last 24 Hours: Temp Pulse Resp BP Pulse Ox 98.5 F 71 20 152/82 H 94 L 10/03/21 04:00 10/03/21 04:00 10/03/21 04:00 10/03/21 04:00 10/03/21 04:00 Laboratory Results - last 24 hr 10/01/21 06:50: Carcinoembryonic Ag 4.2 10/03/21 06:50: WBC 11.8 H, RBC 4.77, Hgb 14.9, Hct 45.5, MCV 95.4 H, MCH 31.2, MCHC 32.7, RDW 13.7, Plt Count 214, MPV 9.1, Neut % (Auto) 70.6, Lymph % (Auto) 18.9, Bay % (Auto) 9.0, Eos % (Auto) 0.9, Baso % (Auto) 0.7, Neut # (Auto) 8.3 H, Lymph # (Auto) 2.2, Bay # (Auto) 1.1 H, Eos # (Aut
--- NOTE | 2021-10-03 11:31 | P.PN_ITS ---
Internal Medicine - PN: Subj *Date: 10/03/21 *Time: 11:31 Exam Vital signs and Labs for Last 24 Hours: Temp Pulse Resp BP Pulse Ox 98.7 F 69 17 143/88 H 93 L 10/03/21 08:00 10/03/21 08:00 10/03/21 08:00 10/03/21 08:00 10/03/21 08:00 Laboratory Results - last 24 hr 10/01/21 06:50: Carcinoembryonic Ag 4.2 10/03/21 06:50: WBC 11.8 H, RBC 4.77, Hgb 14.9, Hct 45.5, MCV 95.4 H, MCH 31.2, MCHC 32.7, RDW 13.7, Plt Count 214, MPV 9.1, Neut % (Auto) 70.6, Lymph % (Auto) 18.9, Terrell % (Auto) 9.0, Eos % (Auto) 0.9, Baso % (Auto) 0.7, Neut # (Auto) 8.3 H, Lymph # (Auto) 2.2, Terrell # (Auto) 1.1 H, Eos # (Auto) 0.1, Baso # (Auto) 0.1 10/03/21 06:50: Sodium 134 L, Potassium 4.0, Chloride 108 H, Carbon Dioxide 22, Anion Gap 8.0, BUN 13 D, Creatinine 0.70, Estimated Creat Clear 166, Estimated GFR 118, Est GFR ( Amer) 143, Glucose 88, Calcium 9.4 I & O for Last 24 hours: Intake & Output 09/30/21 10/01/21 10/02/21 10/03/21 23:59 23:59 23:59 23:59 Intake Total 941 / 941 405 / 405 1070 / 1070 1400 / 1400 Balance 941 / 941 405 / 405 1070 / 1070 1400 / 1400 Weight 97.636 kg 98.656 kg 96.7 kg 96.19 kg Microbiology Reports for the Last 24 Hours: Microbiology 09/30/21 09:45 Blood Blood Culture - Preliminary NO GROWTH AFTER 48 HOURS 09/30/21 09:45 Blood Blood Culture - Preliminary NO GROWTH AFTER 48 HOURS Assessment and Plan (1) Abdominal pain Status: Acute Qualifiers: Abdominal location: unspecified location Qualified Code(s): R10.9 - Unspecified abdominal pain Category: Medical Code(s): R10.9 - Unspecified abdominal pain (2) Bilirubinuria Status: Acute Category: Medical Code(s): R82.2 - Biliuria (3) Leukocytosis Status: Acute Qualifiers: Leukocytosis type: unspecified Qualified Code(s): D72.829 - Elevated white blood cell count, unspecified Category: Medical Code(s): D72.829 - Elevated white blood cell count, unspecified (4) Mass of colon Status: Acute Category: Medical Code(s): K63.89 - Other specified diseases of intestine (5) Renal cyst Status: Acute Category: Medical Code(s): N28.1 - Cyst of kidney, acquired (6) Vomiting Status: Acute Category: Medical Code(s): R11.10 - Vomiting, unspecified The patient's infection will respond to the chosen ABx?: Yes Is the patient receiving the right drug, dose, and route?: Yes Could a more targeted ABx be ordered?: No (WBC DECREASING, AFEBRILE, BLOOD CX (- ) X2. CONTINUE CURRENT ABX)
--- NOTE | 2021-10-03 12:00 | PC.NURSE ---
Pt. to pre-op via bed, accompanied by pre-op staff x2.
--- NOTE | 2021-10-03 13:12 | P.PN_ITS ---
[facility] Anesthesia Checklist - Patient Identification Patient Identification: Arm Band - Structural Data Admitted From: Inpatient Planned Operative Procedure/s: flexible sigmoidoscopy Consent for Planned Operative Procedure(s) Verified: Yes Verified Documents: Surgical Consent, History and Physical - NPO Status Verified Time NPO: 00:00 - Additional verifications Anesthesia Reactions: No - Airway Assessment C-Spine Mobility Assessed: Yes TMJ Mobility Assessed: Yes Dentition: Good Dentition - Neurological Assessment Level of Consciousness: Awake, Alert - Anesthesia Plan Anesthesia Risk discussed: Yes Anesthesia Plan: Verified ASA Class: II Anesthesia Type: MAC [facility] History I have reviewed the patient's past medical history: Yes Medical History: Reports:: Depression, Gastroesophageal Reflux Disease(GERD), Hyperlipidemia, Hypertension Denies:: Cancer, Diabetes Mellitus Type 1, Diabetes Mellitus Type 2, MRSA *Have you ever received a pneumonia vaccine?: No *Have you received a flu vaccine this season?: No Anesthesia experience/problems:: nac Other Surgeries: Yes: No Previous Surgery, Other (Vasctomy) Amputation: No Fractures: No - *Social History Smoking Status: Current every day smoker Tobacco Type: cigarettes # Packs/Day (cigarettes): 1 Alcohol Intake: never Substance Use Type: denies use *Occupational Status:: unemployed Housing: house Household Members: family *Travel in the last 8 weeks: None - Psychiatric History Pschychiatric History:: Reports:: Depression Family Hx:: No significant family history
--- NOTE | 2021-10-03 13:29 | HMH.SCOPE ---
- Procedure: Date: 10/03/21 Patient Date of :: 1970 Procedure Performed:: Subtotal colonoscopy Indications:: Patient is a 51-year-old who had presented with obstipation and decreased frequency of bowel movements and decreased flatus. He has had some symptoms intermittently over approximately 1 year but this became acutely more significant and severe over the past week leading up to his admission. This was noted on CT scan in November 2020 initially in [place] at [facility]. It appears as though he underwent flexible sigmoidoscopy by Dr. Rojas leblanc which revealed no sigmoid mass. He did have a follow-up colonoscopy by Dr. Leblanc in December 2020 which revealed no sigmoid mass but poor preparation in the region of the sigmoid. He was planning a follow-up barium enema in 6 months. Patient was admitted to this institution on 09/30/21 with obstipation and nausea. CT Scan revealed abrupt transition in caliber between descending colon and sigmoid: May be inflammatory or neoplastic. Large amount of and septated stool and gas in the a sending colon, transverse colon, and ascending colon. During this admission he was seen by the surgeon on-call over the weekend, Dr. Azar Arrieta. Patient underwent Gastrografin enema on 10/02/2021 which revealed findings of high-grade stricture at the proximal sigmoid colon with irregular borders highly worrisome for neoplasm. Endoscopic correlation recommended. He has had no known history of diverticulitis. Surgical consultation was obtained for ongoing management. Given his symptoms and imaging findings plan was made for attempted sigmoidoscopy for diagnosis. Performing Provider:: Arsenio Marshall MD Referring Provider:: David Otero MD Sedation:: MAC sedation Procedure:: Patient was taken to endoscopy procedure room. He was positioned in lateral decubitus position. Adequate intravenous sedation was achieved with anesthesia titration of propofol. Variable stiffness Olympus colonoscope was inserted via the anus. Colonic preparation was extremely poor. The colonoscope was able to be advanced to what appeared to be the proximal transverse colon. This was distended with gas and liquid stool. Colonoscope could not be safely advanced proximal to the hepatic flexure. Colonoscope was slowly withdrawn. Thorough irrigation and suctioning was performed but visualization was incredibly poor. In the descending colon there was noted to be some exudative colitis. Biopsies were obtained. There was no obvious mass or stricture but visualization was extremely poor. There was some diverticulosis in the sigmoid colon. Colonoscope was withdrawn. Findings:: Extremely poor visualization Sigmoid diverticulosis Descending colon exudative colitis, etiology unclear Recommendations:: Given the patient's clinical course and findings on previous sigmoidoscopy and colonoscopy by outside facility report I have a concern for possible inflammatory bowel disease colitis. May consider empiric treatment for Crohn's colitis. Biopsies pending. I will go ahead and start him on a clear liquid diet. Complications:: None immediately apparent Estimated blood obtained (mL): 2
--- NOTE | 2021-10-03 13:45 | PC.NURSE ---
Report received from Andrei MELCHOR RN
--- NOTE | 2021-10-03 13:54 | PC.NURSE ---
Pt. arrived to room 280 from PACU. Pt. accompanied by staff x1. MAC vitals in progress.
--- NOTE | 2021-10-03 16:44 | PC.NURSE ---
Pt. resting in bed, reassessment completed. Pt. reports pain at 6/10, nurse offered pain medication. pt. refused stating it's tolerable Nurse reminded pt. to notify nurse when ready for pain medication. Pt. v/u. No further acute changes noted from previous assessment. Pt. denies needs, will continue to monitor.
--- NOTE | 2021-10-04 01:13 | PC.NURSE ---
PT RANG OUT AND SAID HIS IV WAS LEAKING,THE ANGIOCATH HAD PULLED OUT SOME,CHECKED IT AND IT FLUSHED WITHOUT DIFF AND PT DENIED ANY PAIN WITH IT,REDRESSED IT AND HUNG ANOTHER BAG OF D5 1/2 NS WITH 20MEQ K AND PT FLAGYL,NO NEEDS AT THIS TIME,PT HAD ALREADY DOZED BACK TO SLEEP
[2021-10-04 03:39] VITALS: BP 146/82; PULSE 66; RESP 21; TEMP 37; O2SAT 95
--- NOTE | 2021-10-04 04:06 | PC.NURSE ---
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
[2021-10-04 06:03] VITALS: BMI 30.1
[2021-10-04 08:00] VITALS: BP 134/96; PULSE 66; RESP 18; TEMP 37.1; O2SAT 95
--- NOTE | 2021-10-04 08:17 | HMH.GSPN ---
Subjective Patient reports: feels better Narrative: Less abdominal pain. Some loose stools. Tolerating clear liquids. Progress Note: A&P (1) Abdominal pain Status: Acute (2) Bilirubinuria Status: Acute (3) Leukocytosis Status: Acute (4) Mass of colon Status: Acute (5) Renal cyst Status: Acute (6) Vomiting Status: Acute Assessment and Plan for All Diagnoses:: Probable colitis (questionable Crohn's). Clinically improved. Continue medical management. Biopsies pending. If positive for Crohn's will definitely need treatment for this. If negative may need early outpatient thorough colonoscopy. Advance diet. Exam Vital signs and Labs for Last 24 Hours: Temp Pulse Resp BP Pulse Ox 98.6 F 66 21 146/82 H 95 10/04/21 03:39 10/04/21 03:39 10/04/21 03:39 10/04/21 03:39 10/04/21 03:39 I & O for Last 24 hours: Intake & Output 10/01/21 10/02/21 10/03/21 10/04/21 11:59 11:59 11:59 11:59 Intake Total 1346 / 1346 120 / 120 2350 / 2350 620 / 620 Output Total 0 / 0 Balance 1346 / 1346 120 / 120 2350 / 2350 620 / 620 Weight 217 lb 8 oz 213 lb 6.4 oz 212 lb 1 oz 215 lb - *Routine Abdominal Exam Present: soft. Absent: tenderness
--- NOTE | 2021-10-04 08:26 | HMH.ACPN2 ---
<Christie Garcia - Last Filed: 10/04/21 08:26> Internal Medicine - PN: Subj *Date: 10/04/21 *Time: 08:26 Interval history: Patient states he is feeling about the same today. He still having left-sided abdominal pain. He was able to tolerate clear liquids. He slept off and on throughout the night. Exam Vital signs and Labs for Last 24 Hours: Temp Pulse Resp BP Pulse Ox 98.6 F 66 21 146/82 H 95 10/04/21 03:39 10/04/21 03:39 10/04/21 03:39 10/04/21 03:39 10/04/21 03:39 I & O for Last 24 hours: Intake & Output 10/01/21 10/02/21 10/03/21 10/04/21 11:59 11:59 11:59 11:59 Intake Total 1346 / 1346 120 / 120 2350 / 2350 620 / 620 Output Total 0 / 0 Balance 1346 / 1346 120 / 120 2350 / 2350 620 / 620 Weight 217 lb 8 oz 213 lb 6.4 oz 212 lb 1 oz 215 lb - Constitutional no acute distress - *Routine Respiratory Exam Present: CTA bilaterally - *Routine Cardiovascular Exam Present: RRR - *Routine Abdominal Exam Present: soft, normoactive bowel sounds, tenderness (Left-sided) - *Routine Extremities Exam Absent: cyanosis, clubbing, edema - *Routine Skin Exam Present: warm. Absent: rash - *Routine Neurological Exam Present: alert, oriented X3 Assessment and Plan (1) Abdominal pain Status: Acute Qualifiers: Abdominal location: unspecified location Qualified Code(s): R10.9 - Unspecified abdominal pain Category: Medical Code(s): R10.9 - Unspecified abdominal pain (2) Bilirubinuria Status: Acute Category: Medical Code(s): R82.2 - Biliuria (3) Leukocytosis Status: Acute Qualifiers: Leukocytosis type: unspecified Qualified Code(s): D72.829 - Elevated white blood cell count, unspecified Category: Medical Code(s): D72.829 - Elevated white blood cell count, unspecified (4) Mass of colon Status: Acute Category: Medical Code(s): K63.89 - Other specified diseases of intestine (5) Renal cyst Status: Acute Category: Medical Code(s): N28.1 - Cyst of kidney, acquired (6) Vomiting Status: Acute Category: Medical Code(s): R11.10 - Vomiting, unspecified - Assessment and plan all Dx Assessment and Plan for all problems:: Dr. Marshall took patient to the OR yesterday and performed a subtotal colonoscopy. He found sigmoid diverticulosis and descending colon exudative colitis with an unclear etiology. His concern was for possible inflammatory bowel disease. He was started on a clear liquid diet and biopsies are pending. <David Otero - Last Filed: 10/04/21 09:12> Internal Medicine - PN: Subj *Date: 10/04/21 *Time: 09:11 Exam Vital signs and Labs for Last 24 Hours: Temp Pulse Resp BP Pulse Ox 98.7 F 66 18 134/96 H 95 10/04/21 08:00 10/04/21 08:00 10/04/21 08:00 10/04/21 08:00 10/04/21 08:00 I & O for Last 24 hours: Intake & Output 10/01/21 10/02/21 10/03/21 10/04/21 23:59 23:59 23:59 23:59 Intake Total 405 / 405 1070 / 1070 2019 Output Total 0 / 0 Balance 405 / 405 1070 / 1070 2019 Weight 217 lb 8 oz 213 lb 2.992 oz 212 lb 1 oz 215 lb Assessment and Plan (1) Abdominal pain Status: Acute Qualifiers: Abdominal location: unspecified location Qualified Code(s): R10.9 - Unspecified abdominal pain Category: Medical Code(s): R10.9 - Unspecified abdominal pain (2) Bilirubinuria Status: Acute Category: Medical Code(s): R82.2 - Biliuria (3) Leukocytosis Status: Acute Qualifiers: Leukocytosis type: unspecified Qualified Code(s): D72.829 - Elevated white blood cell count, unspecified Category: Medical Code(s): D72.829 - Elevated white blood cell count, unspecified (4) Mass of colon Status: Acute Category: Medical Code(s): K63.89 - Other specified diseases of intestine (5) Renal cyst Status: Acute Category: Medical Code(s): N28.1 - Cyst of kidney, acquired (6) Vomiting Status: Acute Category: Medical Code(s): R11.1
--- NOTE | 2021-10-04 10:10 | PC.NURSE ---
Discharge education provided. Questions encouraged and answered. Pt. v/u
--- NOTE | 2021-10-04 10:26 | DIET.NUTRFU ---
Dietary consulted upon discharge to educate on BRAT diet, reviewed and provided handout. He had follow-up with provider early next week to advance. Patient may need further education if has Crohn's dz
--- NOTE | 2021-10-04 10:31 | HMH.PHAINT ---
I spoke with the patient today about their home medication list. Went over the new medications being sent in for the patient and medications he was to continue on at home. When we spoke, the patient did not have any questions or concerns. 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
--- NOTE | 2021-10-04 10:40 | PC.NURSE ---
Home medications given to pt. Pt. left unit ambulatory per pt. request. Pt. accompanied by staff x1.
--- NOTE | 2021-10-05 14:35 | CARE MANAGER ---
Patient states he is not feeling well. He states he had some diarrhea yesterday, but his bowels have not moved today. He was able to pharmacy picking tech his prescriptions. He is eating a bland diet. We reviewed his follow up appointment date and times. Instructed to contact MD sooner if continues to feel unwell. DANIA Umanzor
--- NOTE | 2021-10-05 15:35 | HMH.DCSUM ---
General - General Admission date:: 09/30/21 Discharge date: 10/04/21 HPI HPI: Mr. Lopez is a 51-year-old male who presented to the emergency room today after approximately 30 episodes of vomiting and nausea. He states last weekend he had diarrhea, but has not had a good bowel movement since then. He had a small soft bowel movement on Saturday. He was evaluated in the emergency room and an abdominal and pelvic CT showed a large amount of stool in the colon, but also an abrupt transition in the caliber between the descending colon and sigmoid colon which could be inflammatory versus neoplastic. The patient has had a work-up in the past for this possible colon mass. He states last October he went to the ER because he had not had a bowel movement in approximately 2 weeks. They gave him mag citrate and sent him home. This did not help. His [id number] then found him in the floor after he had passed out and took him back to the emergency room in [facility]. At that point, a CT was done and showed findings concerning for a sigmoid colon mass. The patient was seen by Dr. Rojas Le and a colonoscopy was performed. He found pronounced diverticulosis and poor bowel prep with no obvious mucosal abnormality. The patient states after the colonoscopy, he had no further problems until last weekend. He does not regularly follow with his PCP and he has had no further colonoscopies. When reviewing the colonoscopy report by Dr. Le, it stated they wanted to follow-up with a barium enema in 6 months. The patient states he recently lost his and has been very depressed and does not leave his home. Hospital Course Hospital Course: The patient was admitted and surgery was consulted. He was started on Zofran and antibiotics along with IV fluids. He was seen in consultation by Dr. Arrieta who felt the patient had a large bowel obstruction. The patient had had occasional decreased flatus and constipation resulting in near obstipation over the past year. He felt there was evidence of diverticulosis with suspected diverticular stricture at the distal sigmoid colon contributing to the large bowel obstruction. This was possibly a neoplastic process, but had not been confirmed. He felt a colonoscopy was indicated and a CEA level should be checked as well. His CEA level was normal. He did receive a Gastrografin enema which showed a high-grade stricture of the proximal sigmoid colon with irregular borders worrisome for neoplasm. The patient was then seen in consultation by Dr. Marshall who wanted to perform a colonoscopy. The colonoscopy was performed on 10/03/2021 and showed sigmoid diverticulosis and descending colon exudative colitis with unclear etiology. Dr. Marshall felt given the patient's clinical course and findings on previous sigmoidoscopy and colonoscopy at an outside facility, there was concern for possible inflammatory bowel disease colitis. Biopsies were takne. He started the patient on a clear liquid diet. The patient did tolerate clear liquids and had less abdominal pain. He was stable to be discharged home and will follow-up as an outpatient for his biopsy results. Objective Vital signs: Temp Pulse Resp BP Pulse Ox 98.7 F 66 18 134/96 H 95 10/04/21 08:00 10/04/21 08:00 10/04/21 08:00 10/04/21 08:00 10/04/21 08:00 Narrative: - Constitutional no acute distress <Christie Garcia 09/30/21 11:24> - *Routine HEENT Exam Head: Present: normocephalic <Christie Garcia 09/30/21 11:24> Eye: Present: EOMI, PERRL <Christie Garcia 09/30/21 11:24> ENT: Present: mucous membranes dry <Christie Garcia 09/30/21 11:24> - *Routine Neck Exam Present: supple. Absent: lymphadenopathy <Christie Garcia 09/30/21 11:24> - *Routine Respiratory Exam Present: CTA bilaterally <Christie Garcia 09/30/21 11:24> - *Routine Cardiovascular Exam Present: RRR <Christie Garcia 09/30/21 11:24> - *Routine Abdominal Exam Pr
== END 2021-10-04 10:40 | disposition home or self-care (01) | DRG 392 ==
LOC: ER 09:36 → 2ND 10-01 00:53 → ER 10-01 15:52 → 2ND 10-01 16:10 → OB 10-02 16:45
PROVIDERS: Surgery; Admitting Provider Family Medicine; Emergency Provider Emergency Medicine; PCP Family Medicine; Visit Provider Family Medicine
PROC: 0DJD8ZZ Inspection of Lower Intestinal Tract, Via Natural or Artificial Opening Endoscopic (ICD-10-PCS; CPT 45330; principal; 2021-10-03 12:00)
DX: K52.89 Other specified noninfective gastroenteritis and colitis (principal); K56.699 Other intestinal obstruction unspecified as to partial versus complete obstruction; K57.30 Diverticulosis of large intestine without perforation or abscess without bleeding; F17.210 Nicotine dependence, cigarettes, uncomplicated; Z20.822 Contact with and (suspected) exposure to COVID-19; I10 Essential (primary) hypertension; K21.9 Gastro-esophageal reflux disease without esophagitis; R82.2 Biliuria; N28.1 Cyst of kidney, acquired; F32.A Depression, unspecified
CPT/HCPCS: 45380; 36415; 74177; 74270; 80048; 80053; 81001; 82150; 82378; 82550; 83605; 83690; 84145; 85007; 85025; 85651; 86140; 87040; 88305; 96365; 96366; 96375; 96376; 99285; C9803; J1956; J2405; Q9967; U0003; U0005

== ENCOUNTER → 2021-10-25 11:37 | Outpatient (CLI) | payer OTHER, SELFPAY | PROVIDERS: Visit Provider Surgery | DX: Z01.812 Encounter for preprocedural laboratory examination (principal); Z11.52 Encounter for screening for COVID-19; Z12.11 Encounter for screening for malignant neoplasm of colon | CPT/HCPCS: C9803; U0003; U0005 ==

== ENCOUNTER 2021-10-27 07:14 | Day surgery (SDC) | payer OTHER, SELFPAY ==
[2021-10-25 12:31] VITALS: BMI 29.9
[2021-10-27 07:26] VITALS: BP 150/101; PULSE 68; RESP 18; TEMP 36.6; O2SAT 100
--- NOTE | 2021-10-27 07:40 | P.PN_ITS ---
[facility] Anesthesia Checklist - Patient Identification Patient Identification: Arm Band - Structural Data Admitted From: Home Planned Operative Procedure/s: colonoscopy Consent for Planned Operative Procedure(s) Verified: Yes Verified Documents: Surgical Consent, History and Physical - NPO Status Verified Time NPO: 00:00 - Additional verifications Anesthesia Reactions: No - Airway Assessment C-Spine Mobility Assessed: Yes (mp2) TMJ Mobility Assessed: Yes Dentition: Good Dentition - Neurological Assessment Level of Consciousness: Awake, Alert - Anesthesia Plan Anesthesia Risk discussed: Yes Anesthesia Plan: Verified ASA Class: II Anesthesia Type: MAC [facility] History I have reviewed the patient's past medical history: Yes Medical History: Reports:: Depression, Gastroesophageal Reflux Disease(GERD), Hyperlipidemia, Hypertension Denies:: Cancer, Diabetes Mellitus Type 1, Diabetes Mellitus Type 2, Internal Pacemaker, MRSA, Seizures *Have you ever received a pneumonia vaccine?: No *Have you received a flu vaccine this season?: No Anesthesia experience/problems:: nac Other Surgeries: Yes: Colonoscopy, Other. No: Pacemaker Amputation: No Fractures: No - *Social History Last grade of school completed: Some college Smoking Status: Current every day smoker Tobacco Type: cigarettes # Packs/Day (cigarettes): 2 Alcohol Intake: never Substance Use Type: denies use *Occupational Status:: unemployed Housing: house Household Members: family *Travel in the last 8 weeks: Inside the [place] - Psychiatric History Pschychiatric History:: Reports:: Depression Family Hx:: No significant family history
[2021-10-27 07:51] VITALS: O2SAT 100
--- NOTE | 2021-10-27 08:43 | HMH.SCOPE ---
- Procedure: Date: 10/27/21 Patient Date of :: 1970 Procedure Performed:: Partial colonoscopy with biopsies and polypectomy Indications:: Patient presents for follow-up colonoscopy. He underwent flexible sigmoidoscopy on 10/03/2021 as an inpatient. He is a 51-year-old who had presented with obstipation and decreased frequency of bowel movements and decreased flatus. He has had some degree of symptoms intermittently over approximately 1 year but this became acutely more significant prior to his admission. He actually had an evaluation at [facility] in November [address] scan revealing findings of possible large bowel obstruction. He had a flexible sigmoidoscopy by Dr. Rojas le which revealed no sigmoid mass. Follow-up colonoscopy by Dr. Le in December 2020 revealed no sigmoid mass but poor preparation. Patient does state that he had difficulty and vomiting with magnesium citrate prep. Apparently consideration was being given for possible follow-up barium enema. He was admitted to this institution on 09/30/2021 with obstipation, nausea, and cramping. CT scan revealed abrupt transition in caliber between descending colon and sigmoid colon may be inflammatory or neoplastic. . There was a large amount of septated stool and gas in the ascending colon, transverse colon, and descending colon. He underwent Gastrografin enema on 10/02/2021 which revealed findings of high-grade stricture at the proximal sigmoid colon with irregular borders highly worrisome for neoplasm. Endoscopic correlation recommended. . There is no known history of diverticulitis. During his hospitalization he underwent sigmoidoscopy on 10/03/2021. He was found to have an extremely poor visualization and poor preparation. There was some mild sigmoid diverticulosis. There was some descending colon exudative colitis. This was biopsied and this revealed colon mucosa with ulceration, fibrinopurulent debris, and ischemic pattern. Patient states that he has had some ongoing loose stools and abdominal cramping. Performing Provider:: Arsenio Marshall MD Referring Provider:: Brandy Ramírez Sedation:: MAC sedation Procedure:: Patient was taken to endoscopy procedure room. Positioned in lateral decubitus position. Adequate intravenous sedation was achieved with anesthesia titration of propofol. Digital examination was performed which revealed large amount of liquid stool which was thick extruding from the anus. Decision was made to go ahead and attempt visualization. Variable stiffness Olympus colonoscope was inserted via the anus. Colonic preparation was quite poor as there was thick liquid stool throughout the colon. With thorough irrigation and suctioning the colonoscope was able to be advanced to near the hepatic flexure. Colonoscope was slowly withdrawn through the colon. Excessive irrigation and suctioning was performed but visualization was extremely poor. There were some sigmoid diverticuli. Thorough evaluation of the sigmoid performed with repeated readvancement and withdrawal of the colonoscope. There was no obvious mass but visualization was exquisitely poor. There is some minor inflamed mucosa in the rectosigmoid which was biopsied. There were a couple of small adenomatous appearing rectosigmoid polyps removed with cold snare. There were several hyperplastic appearing polyps in the rectum removed with biopsy forceps. Colonoscope was withdrawn. Findings:: Extremely poor visualization No obvious obstructing mass Minor inflamed rectosigmoid mucosa biopsied Sigmoid diverticulosis Small adenomatous appearing rectosigmoid polyps Hyperplastic appearing rectal polyps Recommendations:: Unclear as to the etiology of the patient's symptoms. I will see if he can undergo barium enema post procedure to assess for stricture. He may have some inflammatory process causing his problems or intermittent sigmoid volvulus. May require colorecta
[2021-10-27 08:44] VITALS: BP 93/62; PULSE 66; RESP 18; TEMP 36.1; O2SAT 94
--- NOTE | 2021-10-27 08:46 | FL_ITS ---
FINAL REPORT CLINICAL HISTORY: assess for stricture..bx done 2.12 fluoro time 840 ml of gastro used FINDINGS: BARIUM ENEMA HISTORY: Incomplete colonoscopy. PROCEDURE: Single-contrast grafin was introduced by gravity drip. Spot and overhead films were obtained. FINDINGS: Hand Washer film is unremarkable. Theree is diffuse diverticulosis which is greatest in the descending colon. There is a marked area of stricture in the proximal sigmoid colon. Neoplasia is of significant concern. Contrast reaches the cecum. The appendix is visualized. IMPRESSION: 1. Severe stricture in the proximal sigmoid colon worrisome for neoplasia. 2. Diffuse diverticulosis. FLUOROSCOPY TIME: 2 minutes 12 seconds Reviewed, Interpreted and Dictated by Arsenio Garcias III, MD Transcribed by TIMOTHY Horne Authenticated by Arsenio Garcias III, MD on 10/27/2021 11:08:33 AM [facility]
[2021-10-27 08:54] VITALS: BP 123/58; PULSE 58; RESP 18; TEMP 36.1; O2SAT 98
[2021-10-27 09:04] VITALS: BP 119/84; PULSE 56; RESP 18; TEMP 36.1; O2SAT 97
[2021-10-27 09:14] VITALS: BP 125/86; PULSE 58; RESP 18; TEMP 36.1; O2SAT 97
== END 2021-10-27 09:14 | disposition home or self-care (01) ==
LOC: OUTP 07:15
PROVIDERS: PCP Family Medicine; Visit Provider Surgery
PROC: 0DJD8ZZ Inspection of Lower Intestinal Tract, Via Natural or Artificial Opening Endoscopic (ICD-10-PCS; CPT 45338; principal; 2021-10-27 08:30)
DX: K63.9 Disease of intestine, unspecified; K57.30 Diverticulosis of large intestine without perforation or abscess without bleeding; K63.5 Polyp of colon; K62.1 Rectal polyp; E78.5 Hyperlipidemia, unspecified; I10 Essential (primary) hypertension; K21.9 Gastro-esophageal reflux disease without esophagitis; F32.A Depression, unspecified; Z72.0 Tobacco use; Z88.6 Allergy status to analgesic agent
CPT/HCPCS: 45338; 45331; 74270; J2704

== ENCOUNTER → 2021-11-29 11:18 | Outpatient (CLI) | payer OTHER, SELFPAY | PROVIDERS: PCP Family Medicine; Visit Provider Surgery | DX: Z01.812 Encounter for preprocedural laboratory examination (principal); Z20.822 Contact with and (suspected) exposure to COVID-19; Z12.11 Encounter for screening for malignant neoplasm of colon | CPT/HCPCS: C9803; U0003; U0005 ==

== ENCOUNTER 2021-11-30 07:19 | Emergency (ER) | payer OTHER, SELFPAY ==
[2021-11-30 07:20] VITALS: BP 128/95; PULSE 77; RESP 14; TEMP 36.6; O2SAT 99; BMI 29.7
[2021-11-30 07:30] VITALS: BP 128/95; BP 148/89; PULSE 73; PULSE 77; TEMP 36.6; O2SAT 97; O2SAT 98
--- NOTE | 2021-11-30 07:31 | PC.NURSE ---
Family at BS
--- NOTE | 2021-11-30 07:51 | CT_ITS ---
FINAL REPORT CLINICAL HISTORY: Possible blockage, abdominal pain, constipation X 2 wks. COMPARISON: CT dated September 30, 2021; barium enema dated October 02, 2021 FINDINGS: CT OF THE ABDOMEN AND PELVIS WITH CONTRAST Axial CT images of the abdomen and pelvis were obtained after the administration of intravenous contrast. Coronal reformatted images were also obtained and reviewed.This study was performed with techniques to keep radiation doses as low as reasonably achievable (ALARA). Individualized dose reduction techniques using automated exposure control or adjustment of mA and/or kV according to the patient's size were employed. Abdomen: There is mild bibasilar atelectasis. The heart is normal in size. The liver has an unremarkable appearance, without evidence of mass or biliary ductal dilatation. The gallbladder is present. The spleen is unremarkable. No adrenal mass is present. The pancreas has an unremarkable appearance. There is a 6.6 cm right renal cyst. There are several less than 3 mm nonobstructing left renal stones. The aorta is normal in caliber. There is moderate vascular calcification. There is no free fluid or adenopathy. No mass or abnormal fluid collection is seen. Pelvis: The appendix is not well-visualized. The urinary bladder is unremarkable. There is a large amount of retained stool. There is colon wall thickening involving the descending and proximal sigmoid colon with adjacent fat stranding consistent with colitis. There are multiple colonic diverticulum. There is wall thickening of the mid sigmoid colon with an abrupt transition point most worrisome for neoplasm. There are several mildly enlarged lymph nodes adjacent to the mid sigmoid colon measuring up to 11 mm. IMPRESSION: Findings most worrisome for neoplasm involving the mid sigmoid colon with adjacent mildly enlarged lymph nodes that could represent metastatic adenopathy versus reactive adenopathy. Colitis of the descending and proximal sigmoid colon. Large amount of retained stool. Reviewed, Interpreted and Dictated by Arsenio Garcias III, MD Transcribed by Ayo Godoy Authenticated and [facility]
[2021-11-30 08:00] VITALS: BP 128/85; PULSE 74; O2SAT 98
[2021-11-30 08:00] LABS: Basophils # 0.2 K/mm3 (0-0.2); Basophils % 1.3 % (0.1-2.0); Eosinophils # 0.2 K/mm3 (0.0-0.4); Eosinophils % 1.4 % (0.1-12.0); Hemoglobin 17.2 g/dL (14.1-18.0); Lymphocytes # 3.2 K/mm3 (0.7-4.5); Mean Corpuscular HGB Conc 33.2 g/dL (31.8-35.4); Mean Corpuscular Volume 93.6 fl (80-94); Mean Platelet Volume 8.4 fl (7.4-10.4); Monocytes # 0.7 K/mm3 (0.1-1.0); Monocytes % 5.1 % (1.7-9.3); Neutrophils # 8.6 K/mm3 (1.8-7.8); Neutrophils % 67.1 % (37.0-80.0); Platelet Count 316 K/mm3 (142-424); Red Blood Count 5.56 M/mm3 (4.60-6.20); Red Cell Distribution Width 13.8 % (11.5-17.5); White Blood Count 12.9 K/mm3 (4.8-10.8)
[2021-11-30 08:05] LABS: Chloride 103 mmol/L (98-107); Potassium 3.9 mmoL/L (3.5-5.1); Sodium 137 mmol/L (136-145)
--- NOTE | 2021-11-30 08:05 | HMH.EDGENADL ---
ED Disposition Clinical Impression: Abdominal pain, Constipation, Colitis Disposition: Home, Self-Care Condition on Discharge: Good Instructions: DI for Acute Abdominal Pain Referrals: Brandy Ramírez [Primary Care Provider] - Arsenio Marshall MD [Staff Physician] - Time of Disposition: 09:30 - Critical Care Critical Care Time: No Attestation: On 11/30/21, the high probability of a clinically significant, sudden or life threatening deterioration of the following system(s) required my full and direct attention, intervention and personal management. The time I documented below is in addition to time spent performing reported procedures but includes the following listed in this critical care notation. Medical Decision Making - Medical Records Medical records reviewed: Yes: I reviewed the patient's medical records. - Gabo Inquiry Pt receiving controlled substance: No Vital Signs: 11/30/21 07:20 11/30/21 07:30 11/30/21 08:00 Temperature 97.8 F 97.8 F Temperature Source Oral Oral Pulse Rate 73 74 Pulse Rate [Right Radial] 77 Respiratory Rate 14 Blood Pressure 128/95 H 128/85 Blood Pressure [Right Arm] 128/95 H Blood Pressure Mean 105 101 Blood Pressure Mean [Right Arm] 106 Blood Pressure Source Automatic Cuff Blood Pressure Source [Right Arm] Automatic Cuff Blood Pressure Position Sitting Blood Pressure Position [Right Arm] Sitting 02 Sat by Pulse Oximetry 99 98 98 Oxygen Delivery Method Room Air Room Air 11/30/21 09:00 Temperature Temperature Source Pulse Rate 75 Pulse Rate [Right Radial] Respiratory Rate Blood Pressure 130/93 H Blood Pressure [Right Arm] Blood Pressure Mean 106 Blood Pressure Mean [Right Arm] Blood Pressure Source Blood Pressure Source [Right Arm] Blood Pressure Position Blood Pressure Position [Right Arm] 02 Sat by Pulse Oximetry 97 Oxygen Delivery Method Room Air - Lab Data Lab results reviewed: Yes: I reviewed the patient's lab results. Lab Results 11/30/21 07:45: WBC 12.9 H, RBC 5.56, Hgb 17.2, Hct 52.0, MCV 93.6, MCH 31.0, MCHC 33.2, RDW 13.8, Plt Count 316, MPV 8.4, Neut % (Auto) 67.1, Lymph % (Auto) 25.0, [place] % (Auto) 5.1, Eos % (Auto) 1.4, Baso % (Auto) 1.3, Neut # (Auto) 8.6 H, Lymph # (Auto) 3.2, [place] # (Auto) 0.7, Eos # (Auto) 0.2, Baso # (Auto) 0.2 11/30/21 07:45: Sodium 137, Potassium 3.9, Chloride 103, Carbon Dioxide 26, Anion Gap 11.9, BUN 12, Creatinine 0.80, Estimated Creat Clear 146, Estimated GFR 101, Est GFR ( Amer) 122, Glucose 147 H, Calcium 11.1 H, Total Bilirubin 0.7, AST 34, ALT 29, Alkaline Phosphatase 129 H, Total Protein 7.5, Albumin 4.4, Globulin 3.1, Albumin/Globulin Ratio 1.4 11/30/21 07:45: Lipase 31 Result diagrams: 11/30/21 07:45 11/30/21 07:45 Orders (Tests/Meds): ED MEDICATIONS Generic Name Dose Route Start Last Admin Trade Name Freq PRN Reason Stop Dose Admin Sodium Chloride 10 ml 11/30/21 07:51 Sodium Chloride 0.9% 10ml Flush Syringe IV 12/30/21 07:50 NEEDED PRN Maintain IV Site Discontinued Medications Generic Name Dose Route Start Last Admin Trade Name Freq PRN Reason Stop Dose Admin Sodium Chloride 1,000 mls @ 999 mls/hr 11/30/21 07:51 11/30/21 07:54 Sod Chlor 0.9% 1000ml Bag IV 11/30/21 08:51 999 mls/hr .Q1H1M ONE Administration Iopamidol 75 ml 11/30/21 08:32 11/30/21 08:34 Iopamidol-370 (76%);100ml Bottle IV 11/30/21 08:33 75 ml ONCE ONE Administration Ondansetron HCl 4 mg 11/30/21 07:51 11/30/21 07:54 Ondansetron 4mg/2ml Vial IV 11/30/21 07:52 4 mg ONCE ONE Administration Sodium Chloride 10 ml 11/30/21 08:33 11/30/21 08:34 Sodium Chloride 0.9% 10ml Syr (Rad Only) IV 11/30/21 08:34 10 ml ONCE ONE Administration Medical Decision Narrative: Discussed care with Dr. Mccarthy partner Dr. Sherman who discussed wit Dr. Marshall. Will continue to r/o surgical emergency and pt has complicated history. If able to DC, th
--- NOTE | 2021-11-30 08:07 | PC.NURSE ---
ER at speaking with patient; family at BS
[2021-11-30 08:08] LABS: Alanine Aminotransferase 29 U/L (12-78); Albumin Level 4.4 g/dl (3.5-5.0); Albumin/Globulin Ratio 1.4 (1.1-1.8); Alkaline Phosphatase 129 U/L (38-126); Anion Gap 11.9 mEq/L (5-15); Aspartate Amino Transferase 34 U/L (17-59); Bilirubin,Total 0.7 mg/dl (0.2-1.3); Blood Urea Nitrogen 12 mg/dl (9-20); Carbon Dioxide 26 mmol/L (22.0-30.0); Creatinine Clearance Estimated 146 mL/min (50-200); Estimated Glomerular Filt Rate 101 ml/min (>60); GFR (African American) 122 ML/MIN (>60); Globulin 3.1 g/dL (1.3-3.2); Total Protein,Serum 7.5 g/dl (6.3-8.2)
[2021-11-30 08:09] LABS: Calcium 11.1 mg/dl (8.4-10.2); Glucose 147 mg/dl (74-100)
[2021-11-30 08:15] LABS: Lipase 31 U/L (23-300)
--- NOTE | 2021-11-30 08:16 | PC.NURSE ---
Dr. Sherman is search engine optimization consultant and has been paged for TRESSA GARCIA
--- NOTE | 2021-11-30 08:20 | PC.NURSE ---
TRESSA GARCIA speaking with Dr. Sherman who is print production manager for Dr. Marshall
--- NOTE | 2021-11-30 08:21 | PC.NURSE ---
pt in CT
--- NOTE | 2021-11-30 08:23 | PC.NURSE ---
Pt returned from CT
--- NOTE | 2021-11-30 08:29 | PC.NURSE ---
TRESSA GARCIA speaking with Dr. Sherman at this time
[2021-11-30 09:00] VITALS: BP 130/93; PULSE 75; O2SAT 97
--- NOTE | 2021-11-30 09:15 | PC.NURSE ---
pt and family updated on plan of care
--- NOTE | 2021-11-30 09:23 | PC.NURSE ---
TRESSA GARCIA at speaking with patient
[2021-11-30 09:31] VITALS: BP 129/79; PULSE 72; O2SAT 99
[2021-11-30 09:44] VITALS: BP 125/68; PULSE 78; RESP 16; TEMP 36.6; O2SAT 98
--- NOTE | 2021-11-30 09:45 | PC.NURSE ---
PT GOING TO CT
== END 2021-11-30 09:46 | disposition home or self-care (01) ==
PROVIDERS: Emergency Provider Emergency Medicine; PCP Family Medicine
DX: K56.609 Unspecified intestinal obstruction, unspecified as to partial versus complete obstruction (principal); K59.00 Constipation, unspecified; K52.9 Noninfective gastroenteritis and colitis, unspecified; I10 Essential (primary) hypertension; K21.9 Gastro-esophageal reflux disease without esophagitis; E78.5 Hyperlipidemia, unspecified; F32.A Depression, unspecified; F17.210 Nicotine dependence, cigarettes, uncomplicated; Z79.899 Other long term (current) drug therapy; Z88.5 Allergy status to narcotic agent; Z88.6 Allergy status to analgesic agent
CPT/HCPCS: 74177; 80053; 83690; 85025; 96361; 96374; 96375; 99285; J2405; Q9967

== ENCOUNTER 2021-12-05 11:04 | Day surgery (SDC) | payer OTHER, SELFPAY ==
[2021-11-28 14:40] VITALS: BMI 29.7
[2021-12-05 11:16] LABS: Coronavirus 19, PCR Not Detected (NotDetected); Influenza A, PCR Not Detected (NotDetected); Influenza B, PCR Not Detected (NotDetected)
[2021-12-05 11:31] VITALS: BP 126/96; PULSE 81; RESP 18; TEMP 36.9; O2SAT 96
[2021-12-05 11:59] VITALS: O2SAT 96
--- NOTE | 2021-12-05 12:09 | P.PN_ITS ---
[facility] Anesthesia Checklist - Patient Identification Patient Identification: Arm Band, Verbal (Name & ) - Structural Data Admitted From: Home Planned Operative Procedure/s: Flex Sig Consent for Planned Operative Procedure(s) Verified: Yes Verified Documents: Surgical Consent - NPO Status Verified Time NPO: 11:00 - Additional verifications Anesthesia Reactions: No - Airway Assessment C-Spine Mobility Assessed: Yes TMJ Mobility Assessed: Yes Dentition: Good Dentition - Neurological Assessment Level of Consciousness: Awake, Alert, Appropriate - Anesthesia Plan Anesthesia Risk discussed: Yes ASA Class: II Anesthesia Type: MAC [facility] History I have reviewed the patient's past medical history: Yes Medical History: Reports:: Depression, Gastroesophageal Reflux Disease(GERD), Hyperlipidemia, Hypertension Denies:: Cancer, Diabetes Mellitus Type 1, Diabetes Mellitus Type 2, Internal Pacemaker, MRSA, Seizures *Have you ever received a pneumonia vaccine?: No *Have you received a flu vaccine this season?: No Anesthesia experience/problems:: none Other Surgeries: Yes: No Previous Surgery, Colonoscopy, Other. No: Pacemaker Amputation: No Fractures: No - *Social History Last grade of school completed: Some college Smoking Status: Current every day smoker Tobacco Type: cigarettes # Packs/Day (cigarettes): 1 Alcohol Intake: never Substance Use Type: denies use *Occupational Status:: unemployed Housing: house Household Members: family *Travel in the last 8 weeks: None - Psychiatric History Pschychiatric History:: Reports:: Depression Family Hx:: No significant family history
[2021-12-05 13:00] VITALS: BP 117/77; PULSE 72; RESP 12; TEMP 36.4; O2SAT 94
[2021-12-05 13:10] VITALS: BP 105/63; PULSE 72; RESP 16; O2SAT 95
[2021-12-05 13:20] VITALS: BP 148/77; PULSE 68; RESP 16; O2SAT 97
[2021-12-05 13:30] VITALS: BP 149/88; PULSE 63; RESP 16; TEMP 36.4; O2SAT 99
== END 2021-12-05 13:45 | disposition home or self-care (01) ==
LOC: OUTP 11:06
PROVIDERS: PCP Family Medicine; Visit Provider Surgery
PROC: 0DJD8ZZ Inspection of Lower Intestinal Tract, Via Natural or Artificial Opening Endoscopic (ICD-10-PCS; CPT 45330; principal; 2021-12-05 11:30)
DX: R10.9 Unspecified abdominal pain (principal); K21.9 Gastro-esophageal reflux disease without esophagitis; I10 Essential (primary) hypertension; E78.5 Hyperlipidemia, unspecified; F32.A Depression, unspecified; Z72.0 Tobacco use; Z79.899 Other long term (current) drug therapy
CPT/HCPCS: 45331; 45340; C1726; C9803; U0003; U0005

== ENCOUNTER → 2021-12-12 09:48 | Outpatient (CLI) | payer OTHER, SELFPAY ==
[2021-12-12 10:42] LABS: Chloride 107 mmol/L (98-107)
[2021-12-12 10:43] LABS: Potassium 4.1 mmoL/L (3.5-5.1); Sodium 138 mmol/L (136-145)
[2021-12-12 10:45] LABS: Alanine Aminotransferase 20 U/L (12-78); Anion Gap 13.1 mEq/L (5-15); Aspartate Amino Transferase 26 U/L (17-59); Basophils # 0.2 K/mm3 (0-0.2); Basophils % 1.5 % (0.1-2.0); Blood Urea Nitrogen 15 mg/dl (9-20); Carbon Dioxide 22 mmol/L (22.0-30.0); Eosinophils # 0.2 K/mm3 (0.0-0.4); Eosinophils % 2.1 % (0.1-12.0); Estimated Glomerular Filt Rate 101 ml/min (>60); GFR (African American) 122 ML/MIN (>60); Hematocrit 52.1 % (42.0-52.0); Hemoglobin 16.4 g/dL (14.1-18.0); Lymphocytes # 3.1 K/mm3 (0.7-4.5); Lymphocytes % 28.5 % (10-50); Mean Corpuscular HGB Conc 31.4 g/dL (31.8-35.4); Mean Corpuscular Volume 98.4 fl (80-94); Mean Platelet Volume 8.6 fl (7.4-10.4); Monocytes # 0.9 K/mm3 (0.1-1.0); Monocytes % 8.6 % (1.7-9.3); Neutrophils # 6.4 K/mm3 (1.8-7.8); Neutrophils % 59.3 % (37.0-80.0); Platelet Count 298 K/mm3 (142-424); Red Blood Count 5.29 M/mm3 (4.60-6.20); Red Cell Distribution Width 13.4 % (11.5-17.5); White Blood Count 10.7 K/mm3 (4.8-10.8)
[2021-12-12 10:46] LABS: Albumin Level 4.4 g/dl (3.5-5.0); Albumin/Globulin Ratio 1.5 (1.1-1.8); Alkaline Phosphatase 139 U/L (38-126); Bilirubin,Total 0.4 mg/dl (0.2-1.3); Calcium 11.1 mg/dl (8.4-10.2); Globulin 2.9 g/dL (1.3-3.2); Glucose 112 mg/dl (74-100); Total Protein,Serum 7.3 g/dl (6.3-8.2)
== END ==
PROVIDERS: Visit Provider Surgery
DX: R10.9 Unspecified abdominal pain (principal)
CPT/HCPCS: 36415; 80053; 85025; 86850; C9803; U0003; U0005

== ENCOUNTER 2021-12-14 07:05 | Inpatient (IN) | payer OTHER, SELFPAY ==
--- NOTE | 2021-12-05 13:06 | HMH.SCOPE ---
- Procedure: Date: 12/05/21 Patient Date of :: 1970 Procedure Performed:: Flexible sigmoidoscopy to 60 cm with biopsy and pneumatic dilatation of possible stricture repeatedly to 20 mm. Indications:: Patient is for urgent add-on sigmoidoscopy.. He has had about a 1 year history of intermittent abdominal issues. He is a 51-year-old who had presented with obstipation and decreased frequency of bowel movements and decreased flatus.? He has had some degree of symptoms intermittently over approximately 1 year but this became acutely more significant prior to his admission here at this facility recently.? He actually had an evaluation at [facility] in November [address] scan revealing findings of possible large bowel obstruction.? He had a flexible sigmoidoscopy by Dr. Rojas Le which revealed no sigmoid mass.? Follow-up colonoscopy by Dr. Le in December 2020 revealed no sigmoid mass but poor preparation.? Patient does state that he had difficulty and vomiting with magnesium citrate prep.? Apparently consideration was being given for possible follow-up barium enema.? He was admitted to this facility on 09/30/2021 with obstipation, nausea, and cramping.? CT scan revealed abrupt transition in caliber between descending colon and sigmoid colon may be inflammatory or neoplastic. .? There was a large amount of septated stool and gas in the ascending colon, transverse colon, and descending colon.? He underwent Gastrografin enema on 10/02/2021 which revealed findings of high-grade stricture at the proximal sigmoid colon with irregular borders highly worrisome for neoplasm.? Endoscopic correlation recommended. .? There is no known history of diverticulitis.? It was during this recent hospitalization when I first became involved with the patient. During his hospitalization he underwent sigmoidoscopy on 10/03/2021.? He was found to have an extremely poor visualization and poor preparation.? There was some mild sigmoid diverticulosis.? There was some descending colon exudative colitis.? This was biopsied and this revealed colon mucosa with ulceration, fibrinopurulent debris, and ischemic pattern. There was no notable mass. He underwent colonoscopy with full bowel preparation with 1 gallon GoLytely on 10/27/2021.? At that time he was noted to have thick liquid stool exuding from the anus.? Colonic surveillance was carried out and there was thick liquid stool throughout the colon with extremely poor visualization.? He did have some diverticuli.? There was no obvious mass.? There was some inflamed mucosa in the rectosigmoid region which was biopsied which revealed benign colonic mucosa with proprial fibrosis and evidence of prior hemorrhage.? He did have a distal tubular adenoma and several hyperplastic polyps. Post procedure he underwent a follow-up contrast enema.? This revealed evidence consistent with severe stricture of the proximal sigmoid colon worrisome for neoplasm once again. I had planned for a follow-up colonoscopy with more aggressive bowel preparation scheduled on 12/01/2021. However, when taking the bowel prep the patient had developed some cramping abdominal pain and was unable to tolerate the prep. He presented to the emergency department where he underwent CT scan which once again revealed findings most worrisome for neoplasm involving the mid sigmoid colon with adjacent mildly enlarged lymph nodes that could represent metastatic adenopathy versus reactive adenopathy. Colitis of the descending and proximal sigmoid colon. He presented to the office this morning. He described obstipation which was quite severe with cramping abdominal pain and bloating. He tried enemas without results. On examination he is some tenderness in the left abdomen. Given patient's clinical history is felt that he may have high-grade obstruction of the colon. Options were discussed and it was felt the patient could actually require relatively urgent lapar
[2021-12-13 09:46] VITALS: BMI 29.7
[2021-12-14] VITALS (22 sets, daily range): BP systolic 87–145; BP diastolic 52–90; PULSE 70–82; RESP 14–29; TEMP 36.1–43; O2SAT 92–98; BMI 29.8
--- NOTE | 2021-12-14 07:05 | HMH.ANESCL ---
[facility] Anesthesia Checklist - Patient Identification Patient Identification: Arm Band - Structural Data Admitted From: Home Planned Operative Procedure/s: Sigmoid colon Consent for Planned Operative Procedure(s) Verified: Yes - NPO Status Verified Time NPO: 00:00 - Additional verifications Anesthesia Reactions: No Hx Blood Transfusions: No Blood Transfusion Reaction: No - Airway Assessment C-Spine Mobility Assessed: Yes TMJ Mobility Assessed: Yes Dentition: Edentulous - Neurological Assessment Level of Consciousness: Awake Hx Seizures: No Numbness or tingling in extremities: No - Anesthesia Plan Anesthesia Risk discussed: Yes Anesthesia Plan: Verified ASA Class: II Anesthesia Type: General [facility] History I have reviewed the patient's past medical history: Yes Medical History: Reports:: Depression, Gastroesophageal Reflux Disease(GERD), Hyperlipidemia, Hypertension Denies:: Cancer, Diabetes Mellitus Type 1, Diabetes Mellitus Type 2, Internal Pacemaker, MRSA, Seizures *Have you ever received a pneumonia vaccine?: No *Have you received a flu vaccine this season?: No Other Medical History: Denies: Blood Transfusion Reaction Anesthesia experience/problems:: None Other Surgeries: Yes: No Previous Surgery, Colonoscopy, Other. No: Pacemaker Amputation: No Fractures: No - *Social History Last grade of school completed: Some college Smoking Status: Current every day smoker Tobacco Type: cigarettes # Packs/Day (cigarettes): 1 Alcohol Intake: never Substance Use Type: denies use *Occupational Status:: unemployed Housing: house Household Members: family *Travel in the last 8 weeks: None - Psychiatric History Pschychiatric History:: Reports:: Depression Family Hx:: No significant family history
[2021-12-14 07:07] LABS: Coronavirus 19, PCR Not Detected (NotDetected); Influenza A, PCR Not Detected (NotDetected); Influenza B, PCR Not Detected (NotDetected)
--- NOTE | 2021-12-14 09:42 | SUR.OPER ---
0915 bladder filled with 300mL of NS per Dr. Marshall. 0917 bladder drained into stokes bag
--- NOTE | 2021-12-14 09:43 | SUR.OPER ---
0928 family updated via Glenn Otto RN
--- NOTE | 2021-12-14 10:45 | SUR.OPER ---
1030 family updated by Glenn Otto RN
--- NOTE | 2021-12-14 11:44 | SUR.OPER ---
1140 family updated regarding colostomy by Parker Mcdaniels RN
--- NOTE | 2021-12-14 12:48 | HMH.GSHP ---
HPI HPI: Patient presents for colon resection. ? He has had about a 1 year history of intermittent abdominal issues. ? He is a 51-year-old who had presented with obstipation and decreased frequency of bowel movements and decreased flatus.? He has had some degree of symptoms intermittently over approximately 1 year but this became acutely more significant prior to his admission here at this facility fairly recently.? He actually had an evaluation at [facility] in November [address] scan revealing findings of possible large bowel obstruction.? He had a flexible sigmoidoscopy by Dr. Rojas Le which revealed no sigmoid mass.? Follow-up colonoscopy by Dr. Le in December 2020 revealed no sigmoid mass but poor preparation.? Patient does state that he had difficulty and vomiting with magnesium citrate prep.? Apparently consideration was being given for possible follow-up barium enema.? He was admitted to this facility on 09/30/2021 with obstipation, nausea, and cramping.? CT scan revealed abrupt transition in caliber between descending colon and sigmoid colon may be inflammatory or neoplastic. .? There was a large amount of septated stool and gas in the ascending colon, transverse colon, and descending colon.? He underwent Gastrografin enema on 10/02/2021 which revealed findings of high-grade stricture at the proximal sigmoid colon with irregular borders highly worrisome for neoplasm.? Endoscopic correlation recommended. .? There is no known history of diverticulitis.? It was during this hospitalization when I first became involved with the patient.? During his hospitalization he underwent sigmoidoscopy on 10/03/2021.? He was found to have an extremely poor visualization and poor preparation.? There was some mild sigmoid diverticulosis.? There was some descending colon exudative colitis.? This was biopsied and this revealed colon mucosa with ulceration, fibrinopurulent debris, and ischemic pattern. ? There was no notable mass. He underwent colonoscopy with full bowel preparation with 1 gallon [place] on 10/27/2021.? At that time he was noted to have thick liquid stool exuding from the anus.? Colonic surveillance was carried out and there was thick liquid stool throughout the colon with extremely poor visualization.? He did have some diverticuli.? There was no obvious mass.? There was some inflamed mucosa in the rectosigmoid region which was biopsied which revealed benign colonic mucosa with proprial fibrosis and evidence of prior hemorrhage.? He did have a distal tubular adenoma and several hyperplastic polyps. Post procedure he underwent a follow-up contrast enema.? This revealed evidence consistent with severe stricture of the proximal sigmoid colon worrisome for neoplasm once again. I had planned for a follow-up colonoscopy with more aggressive bowel preparation scheduled on 12/01/2021.? However, when taking the bowel prep the patient had developed some cramping abdominal pain and was unable to tolerate the prep.? He presented to the emergency department where he underwent CT scan which once again revealed findings most worrisome for neoplasm involving the mid sigmoid colon with adjacent mildly enlarged lymph nodes that could represent metastatic adenopathy versus reactive adenopathy.? Colitis of the descending and proximal sigmoid colon. Planned colonoscopy was cancelled. He presented to the office for follow-up on 12/05/21.? He described obstipation which was quite severe with cramping abdominal pain and bloating.? He tried enemas without results.? On examination he had some tenderness in the left abdomen.? Given patient's clinical history it was felt that he may have high-grade obstruction of the colon.? Options were discussed and it was felt the patient could actually require relatively urgent laparotomy with colostomy creation.? However, plan was made to proceed with attempted sigmoidoscopy to evaluate and possibly dilate any stricture. He did undergo urgent
--- NOTE | 2021-12-14 12:54 | HMH.OPNOTE ---
Date of procedure: 12/14/21 Pre-op Diagnosis:: Large bowel obstruction, high-grade partial Post-op Diagnosis:: Same Procedure performed:: Exploratory laparotomy with distal sigmoid colon resection with low pelvic anastomosis and creation of loop ileostomy Surgeon:: Arsenio Marshall MD Wire Tester(s):: Bradycardia read SNAPPER ON:: Jessika Mclaughlin Anesthesia: GETA Estimated blood loss (mL): 75 Operative findings:: Patient had a significant mass in the distal sigmoid colon adherent to the peritoneum of the bladder without any obvious fistula. Proximal colon was markedly distended and chronically thickened. Operative note:: Patient was taken to the operating room. He was positioned in a supine position. General anesthesia was induced via endotracheal tube. Segura catheter was placed. He was repositioned in modified lithotomy position. Abdomen and perineum were prepped and draped in the standard surgical fashion. Low midline laparotomy incision was made. Dissection was carried down through subcutaneous tissues and fascia using electrocautery. Peritoneum was elevated and entered. Exposure was achieved. Palpation was carried out and there was a easily palpable mass in the pelvis. Exposure was achieved. This was adherent to the anterior peritoneum near the bladder. Dissection was carried down incising this from the anterior peritoneum. Ultimately decision was made to divide the colon proximal to this with a PAVITHRA 75 type stapling device. Dissection was then carried out into the pelvis incising the peritoneum on each side of the colon. The mesocolon was then divided with the Enseal device with care taken to coagulate the branching colonic vessels. Ultimately once dissection was carried out distal to the mass like lesion the colon was divided with the contour stapling device. Please note that the colon proximal to the obstructing lesion was markedly thickened and markedly distended. On the back table the colon was opened sharply after it had been marked with a suture marking the proximal margin. There were no mucosal changes but there was significant thickening fibrosis of the muscularis of the colon wall. This was not consistent with an adenocarcinoma of the colon. Unclear as to the etiology could be benign versus atypical neoplasm. Plan was made for low pelvic anastomosis. Due to the marked distention of the proximal colon the pursestring suture device was unable be utilized. A pursestring was placed in the proximal colon handsewn using 2-0 Prolene. From below assistant professor of marine biology surgeon inserted anorectal dilators. The 33 mm end-to-end type stapler was brought onto the field. The anvil was placed within the proximal colon and secured with a Prolene pursestring suture. Using the 33 mm EEA type stapler anastomosis was performed. The pelvis was then filled with saline and using the rigid proctoscope air was insufflated per the rectum with observation for any leak of which none was noted initially. Fluid was then evacuated. At this time there was noted to be some bubbles and stool exuding from the area of the anastomosis. Observation was carried out which revealed some disruption of the anastomosis secondary to the chronic inflammation present. Plan was made to perform an attempt at redo anastomosis. The anastomosis was taken down using the contour stapler. Some additional mid sigmoid colon was resected by dividing the colon with the PAVITHRA 75 stapling device. The mesocolon was divided with the Enseal device. The contour stapler was then fired on the rectosigmoid to resect the previous anastomosis as well. Proximal colon was cleaned free of extraneous tissue. At this time the pursestring device was able to be used to create a pursestring using 2-0 Prolene. Creation of end to end anastomosis using the EEA 33 mm stapler was initiated. Due to the chronic inflammation there was noted to be some disruption of the rectosigmoid staple line when the EEA was inse
--- NOTE | 2021-12-14 12:55 | P.PN_ITS ---
[facility] Anesthesia Record Part I Intake, IV Amount: 1,700 Estimated blood loss (mL): 70 Urine output (mL): 250 Blood Pressure: 87/52 SaO2: 93 Pulse Rate: 79 Respiratory Rate: 29 Temperature: 97.4 F Patient is:: Drowsy Stable to PACU at:: 12:51
--- NOTE | 2021-12-14 13:36 | PC.NURSE ---
Attempted to contact Keeley Mclaughlin CRNA for pt o2 sats and sedation level
--- NOTE | 2021-12-14 13:42 | HMH.PHAVTE ---
[facility] Pharmacy VTE Monitoring - Patient Demographics Admission date: 12/14/21 Report Date: 12/14/21 Time: 13:42 Allergies/Adverse Reactions: Patient Allergies aspirin Allergy (Verified 12/12/21 09:11) codeine Allergy (Verified 12/12/21 09:11) Height: 1.8 m Weight: 96.615 kg - Prophylaxis VTE Prophylaxis Ordered?: Yes Types of VTE Prophylaxis: IPCS Thigh High (POST OP), Pharmacological Pharmacologic Type: Enoxaparin
--- NOTE | 2021-12-14 13:55 | PC.NURSE ---
pt arrived to the floor at this time
[2021-12-14 15:52] LABS: Microscopic,Cath URINE MICROSCOPIC (MICROSCOPIC)
[2021-12-14 16:46] LABS: Appearance,Urine/Cath CLEAR (Clear); Bilirubin,Cath Negative (Negative); Blood, Urine/Cath TRACE-L (Negative); Color,Urine/Cath YELLOW (Yellow); Glucose,Urine/Cath (UA) Negative (Negative); Ketones,Urine/Cath Negative (Negative); Leukocyte Esterase,Cath Negative (Negative); Nitrate,Cath Negative (Negative); Protein,Urine/Cath Negative (Negative); Specific Gravity, Urine/Cath 1.025 (1.005-1.030)
[2021-12-14 17:42] LABS: RBC,Urine/Cath Occasional # /hpf (0-3)
[2021-12-15] VITALS (10 sets, daily range): BP systolic 100–128; BP diastolic 63–84; PULSE 80–110; RESP 18–33; TEMP 36.8–37.6; O2SAT 89–97; BMI 30.4
--- NOTE | 2021-12-15 04:23 | PC.NURSE ---
pt has rested t/o most of shift, has been using JUNIOR STAFF ACCOUNTANT pump, remains on 2L NC with O2 sats 95-96 %, stokes remains in place with 350 mL out so far this shift, dressing in place to midline incision, small amount of sanguineous appearing drainage present in the bag, IS placed at bedside this shift
--- NOTE | 2021-12-15 06:20 | P.PN_ITS ---
Subjective Narrative: Patient complains of postoperative pain. No nausea. Did have a very low-grade temperature elevation. Progress Note: A&P Assessment and Plan for All Diagnoses:: May have limited ice chips. Continue NPO. Encourage incentive spirometer. Keep Segura for now due to diverticular mass adherent to bladder. I will check cystogram. Exam Vital signs and Labs for Last 24 Hours: Temp Pulse Resp BP Pulse Ox 99.6 F 97 H 18 117/72 93 L 12/15/21 04:00 12/15/21 06:00 12/15/21 06:00 12/15/21 06:00 12/15/21 06:00 Laboratory Results - last 24 hr 12/14/21 06:54: SARS-CoV-2 (PCR) Not detected, Influenza A Untype (PCR) Not detected, Influenza Type B (PCR) Not detected 12/14/21 07:40: Urine Color Yellow, Urine Appearance Clear, Urine pH 6.0, Ur Specific [place] 1.025, Urine Protein Negative, Urine Glucose (UA) Negative, Urine Ketones Negative, Urine Blood Trace-l, Urine Nitrate Negative, Urine Bilirubin Negative, Urine Urobilinogen 2.0, Ur Leukocyte Esterase Negative, U rine RBC Occasional, Urine WBC 3-5, Ur Squamous Epith Cells 3-5, Urine Bacteria None I & O for Last 24 hours: Intake & Output 12/12/21 12/13/21 12/14/21 12/15/21 11:59 11:59 11:59 11:59 Intake Total 1700 / 1700 Output Total 600 / 600 Balance 1100 / 1100 Weight 213 lb 217 lb 4 oz - *Routine Abdominal Exam Present: soft Comments: Incision clean dry and dressing intact. Ileostomy viable, minimal output
--- NOTE | 2021-12-15 06:22 | FL_ITS ---
FINAL REPORT CLINICAL HISTORY: . post excision mass FINDINGS: CYSTOGRAM HISTORY: Status post colon surgery with mass removal. PROCEDURE: Contrast was introduced in a retrograde fashion into the urinary bladder by gravity drip. Spot and overhead films were obtained. FINDINGS: Preliminary public transportation inspector film demonstrates postoperative changes to the lower abdomen. The urinary bladder distends appropriately. There is no reflux of contrast. No extravasation of contrast was identified to indicate leak. FLUOROSCOPY TIME: 37 seconds. Seven radiographs were obtained. IMPRESSION: Normal cystogram.. Films reviewed , interpreted and dictated by Dr. Garcias. Transcribed by Nicholas Carter PA-C. Reviewed, Interpreted and Dictated by Arsenio Garcias III, MD Transcribed by TIMOTHY Casarez Authenticated and [facility]
--- NOTE | 2021-12-15 06:30 | PC.NURSE ---
53.2 mg automation qa tester morphine used
[2021-12-15 07:07] LABS: Basophils % 0.2 % (0.1-2.0); Eosinophils % 0.1 % (0.1-12.0); Hematocrit 44.6 % (42.0-52.0); Lymphocytes # 1.6 K/mm3 (0.7-4.5); Lymphocytes % 9.5 % (10-50); Mean Corpuscular HGB Conc 33.8 g/dL (31.8-35.4); Mean Corpuscular Hemoglobin 30.6 pg (27.0-31.2); Mean Corpuscular Volume 90.7 fl (80-94); Mean Platelet Volume 8.3 fl (7.4-10.4); Monocytes % 6.2 % (1.7-9.3); Platelet Count 251 K/mm3 (142-424); Red Blood Count 4.92 M/mm3 (4.60-6.20); White Blood Count 16.6 K/mm3 (4.8-10.8)
[2021-12-15 07:14] LABS: Blood Urea Nitrogen 16 mg/dl (9-20); Calcium 10.2 mg/dl (8.4-10.2); Carbon Dioxide 27 mmol/L (22.0-30.0); Chloride 105 mmol/L (98-107); Creatinine Clearance Estimated 149 mL/min (50-200); Estimated Glomerular Filt Rate 101 ml/min (>60); GFR (African American) 122 ML/MIN (>60); Glucose 108 mg/dl (74-100); Sodium 136 mmol/L (136-145)
[2021-12-15 07:16] LABS: MANUAL DIFFERENTIAL MANUAL DIFFERENTIAL (MANUAL DIFF)
[2021-12-15 08:15] LABS: Lymphocytes % 8 % (10-50); Monocytes % 6 % (2-9); Neutrophils % 86 % (42-76); Platelet Estimate Normal; RBC Morphology Normal; Total Cells Counted 100
--- NOTE | 2021-12-15 10:32 | PC.NURSE ---
Addendum entered by Polina Lee RN 12/15/21 11:38: 1100 pt requests nicotine patch. contacted Dr marshall for med order. order received 1117 Nicotine 21mg td daily. Original Note: Spoke with Dr Marshall about pt. clarified when dressing needs to be changed ( 0720 per md dressing is ok unless soiled, but needs to be changed in approx 3 days) 0725 notified MD that pt states he has numbness/tingling in his l arm. states that this is new. no deficits noted. per MD consult medicine for managment. pt family MD is in [place]. Service MD is to be consulted. Dr Zelaya is service, Dr Zelaya was notified by Lalita in at 0800 CLarified if it is ok for pt to come out of stepdown. ok to transfer out of [place] at 1012
--- NOTE | 2021-12-15 10:39 | PC.NURSE ---
Addendum entered by Josy Mota RN 12/15/21 13:00: PATIENT NOTED TO HAVE SOME PAIN DURING THIS. BUSINESS AGENT STILL INTACT. HAD NO CONCERNS OR QUESTIONS. TOLERATED TRANSPORT DOWNSTAIRS WELL. ENCOURAGED BRACING STOMACH DURING MOVEMENT OR COUGHING. ENCOURAGED TO LET US KNOW IF ANY OTHER CONCERNS OR QUESTIONS ARISE. Original Note: went down stairs with radiology. assisted them with transport.
--- NOTE | 2021-12-15 14:49 | HMH.GSPN ---
Subjective Narrative: Patient has complained of some paresthesia type symptoms in his left upper extremity. His pain is better this afternoon with Toradol. However, he has been a bit tachycardic. Cystogram is unremarkable. Progress Note: A&P Assessment and Plan for All Diagnoses:: Keep Segura for now. Likely start patient's pertinent home medications. Medicine consult pending. Monitor hemodynamics closely as tachycardia is somewhat concerning. Exam Vital signs and Labs for Last 24 Hours: Temp Pulse Resp BP Pulse Ox 98.9 F 108 H 28 H 128/84 89 L 12/15/21 12:00 12/15/21 12:00 12/15/21 12:00 12/15/21 12:00 12/15/21 12:00 Laboratory Results - last 24 hr 12/14/21 07:40: Urine Color Yellow, Urine Appearance Clear, Urine pH 6.0, Ur Specific [place] 1.025, Urine Protein Negative, Urine Glucose (UA) Negative, Urine Ketones Negative, Urine Blood Trace-l, Urine Nitrate Negative, Urine Bilirubin Negative, Urine Urobilinogen 2.0, Ur Leukocyte Esterase Negative, Urine RBC Occasional, Urine WBC 3-5, Ur Squamous Epith Cells 3-5, Urine Bacteria None 12/15/21 06:10: WBC 16.6 H D, RBC 4.92, Hgb 15.0, Hct 44.6, MCV 90.7, MCH 30.6, MCHC 33.8, RDW 13.0, Plt Count 251, MPV 8.3, Neut % (Auto) 84.0 H, Lymph % (Auto) 9.5 L, [place] % (Auto) 6.2, Eos % (Auto) 0.1, Baso % (Auto) 0.2, Neut # (Auto) 14.0 H, Lymph # (Auto) 1.6, [place] # (Auto) 1.0, Eos # (Auto) 0.0, Baso # (Auto) 0.0, Total Counted 100, Neutrophils % (Manual) 86 H, Lymphocytes % (Manual) 8 L, Monocytes % (Manual) 6, Platelet Estimate Normal, RBC Morphology Normal 12/15/21 06:10: Sodium 136, Potassium 4.0, Chloride 105, Carbon Dioxide 27, Anion Gap 8.0, BUN 16, Creatinine 0.80, Estimated Creat Clear 149, Estimated GFR 101, Est GFR ( Amer) 122, Glucose 108 H, Calcium 10.2 I & O for Last 24 hours: Intake & Output 12/13/21 12/14/21 12/15/21 12/16/21 11:59 11:59 11:59 11:59 Intake Total 3590 / 3590 Output Total 1000 / 1000 Balance 2590 / 2590 Weight 213 lb 217 lb 4 oz - *Routine Abdominal Exam Present: soft
--- NOTE | 2021-12-15 15:01 | PC.NURSE ---
Addendum entered by Polina Lee RN 12/15/21 15:05: pt was asked a few times this shift if he wanted/would get up to the chair this shift, pt refused . Addendum entered by Polina Lee RN 12/15/21 15:04: cont- hr decreased from the 120's to the low 110's. nad noted. Original Note: Dr Marshall notified face to face that pt was slightly tachycardic and tachypneic. Dr Marshall made rounds at this time. pt ostomy and midline incision assessed. no issues noted at this time. lung sounds assessed by rn, lungs clear, bowels hypoactive. minimal tenderness endorsed by pt. pt did state that he is no longer having cramping. pt tachycardia was noted around the same time pt pain was reassessed and he stated that he was hurting. pt was asked if he had used his PSYCHIATRIC AIDE INSTRUCTOR button for his medication. pt stated he had not. when asked why he could not answer. pt was given scheduled dose of toradol and tachycardia has decreased from 120-
--- NOTE | 2021-12-15 17:23 | PC.NURSE ---
Trash taken out of patients room
--- NOTE | 2021-12-15 19:35 | HMH.CONS ---
*Admission Date: 12/14/21 *Reason for consult:: FAMILY MEDICINE CONSULT *History of present illness: The following is an edited narrative based on Dr. Marshlal's description of the case: The patient has had about a 1 year history of intermittent abdominal issues. ? He is a 51-year-old who had presented with obstipation and decreased frequency of bowel movements and decreased flatus.? He actually had an evaluation at [facility] in November [address] scan revealing findings of possible large bowel obstruction.? He had a flexible sigmoidoscopy by Dr. Rojas Le which revealed no sigmoid mass.? Follow-up colonoscopy by Dr. Le in December 2020 revealed no sigmoid mass.? He was admitted to this facility on 09/30/2021 with obstipation, nausea, and cramping.? CT scan revealed abrupt transition in caliber between descending colon and sigmoid colon may be inflammatory or neoplastic. .? He underwent Gastrografin enema on 10/02/2021 which revealed findings of high-grade stricture at the proximal sigmoid colon with irregular borders highly worrisome for neoplasm.? Endoscopic correlation recommended. During this hospitalization Dr. Marshall first became involved with the patient.? He underwent sigmoidoscopy on 10/03/2021.? There was some mild sigmoid diverticulosis.? There was some descending colon exudative colitis.? This was biopsied and this revealed colon mucosa with ulceration, fibrinopurulent debris, and ischemic pattern. ? There was no notable mass. He underwent colonoscopy with full bowel preparation with 1 gallon [place] on 10/27/2021.? Colonic surveillance was carried out and there was thick liquid stool throughout the colon with poor visualization.? He did have some diverticuli but no obvious mass.? Inflamed mucosa in the rectosigmoid region was biopsied and revealed benign colonic mucosa with proprial fibrosis and evidence of prior hemorrhage.? He did have a distal tubular adenoma and several hyperplastic polyps. Post procedure he underwent a contrast enema.? This revealed evidence consistent with severe stricture of the proximal sigmoid colon worrisome for neoplasm once again. Colonoscopy with more aggressive bowel preparation was scheduled on 12/01/2021.? However, when taking the bowel prep the patient developed cramping abdominal pain and was unable to tolerate the prep and presented to the emergency department. He underwent CT scan which once again revealed findings most worrisome for neoplasm involving the mid sigmoid colon with adjacent mildly enlarged lymph nodes that could represent metastatic adenopathy versus reactive adenopathy.? Colitis of the descending and proximal sigmoid colon. Colonoscopy was cancelled. In office follow-up on 12/05/21 he described obstipation which was severe with cramping abdominal pain and bloating.? He tried enemas without results.? On He had some tenderness in the left abdomen.? Given patient's clinical history it was felt that he could have high-grade obstruction of the colon.? Options were discussed and it was felt the patient could actually require relatively urgent laparotomy with colostomy.? However, plan was made to proceed with attempted sigmoidoscopy. He did undergo urgent sigmoidoscopy on 12/05/2021. The rectosigmoid and rectum were very clean but the descending colon revealed poor preparation. There were some sigmoid diverticuli. There was some minor mucosal narrowing at approximately 25 cm but no evidence of any clearly defined stricture or mass. He did have some hyperplastic appearing rectosigmoid polyps. He was dilated to 20 mm sequentially and thorough transcolonoscopic lavage was carried out proximal to the presumed area of narrowing. He is moving his bowels as thin ribbonlike stools. He was seen by Dr. Marshall in follow up on 12/12/21. Consideration was given for possible repeat sigmoidoscopy and dilatation. Surgical option was discussed as well. The decision was made to pursue surgery. On 12/14/21 the
[2021-12-15 20:19] LABS: Erythrocyte Sedimentation Rate 46 mm/hr (0-20)
[2021-12-15 20:28] LABS: Thyroid Stimulating Hormone 0.18 uIU/mL (0.465-4.68)
[2021-12-16] VITALS (28 sets, daily range): BP systolic 82–154; BP diastolic 51–89; PULSE 75–124; RESP 17–40; TEMP 36.1–37.1; O2SAT 89–95; BMI 30.4
--- NOTE | 2021-12-16 04:20 | PC.NURSE ---
pt alert and oriented, moves all extremities, PERRLA at 2mm, pt rested well until about 0400, pt stated freezing but RN unable to turn heat up in room thermostat won't budge, turned fan off and placed warm blankets on pt; bp normotensive, no fever, HR low 100's except when first woke up around 0400 was around 120-130's but back down now; oxygen saturations 92% on 2LNC, tachypneic; pt has used protection mgr pump some this shift; stokes was leaking upon start of shift and bed soaked so removed stokes and changed sheets, pt got up to chair while changed sheets and then back to bed with standby assist; pt has voided twice since stokes removal once incontinent on pillow and gown and once in urinal; colostomy putting out gas but not much solid or liquid, burped bag twice this shift;
--- NOTE | 2021-12-16 07:14 | HMH.GSPN ---
Subjective Narrative: Patient complains of abdominal soreness. He had felt hot earlier this morning and now has some chills. He has had recurrent tachycardia over the past couple of hours. Progress Note: A&P (1) Postop check Status: Acute (2) Mass of colon Status: Acute (3) Abdominal pain Status: Acute (4) Colitis Status: Acute (5) Constipation Status: Acute (6) History of depression Status: Acute Assessment and Plan for All Diagnoses:: Concern for intra-abdominal pathology. Possible anastomotic leak. I explained this to the patient. Plan for reopening laparotomy and possible washout. Exam Vital signs and Labs for Last 24 Hours: Temp Pulse Resp BP Pulse Ox 97.8 F 113 H 19 154/75 H 91 L 12/16/21 04:00 12/16/21 04:00 12/16/21 04:00 12/16/21 04:00 12/16/21 04:00 Laboratory Results - last 24 hr 12/15/21 06:10: WBC 16.6 H D, RBC 4.92, Hgb 15.0, Hct 44.6, MCV 90.7, MCH 30.6, MCHC 33.8, RDW 13.0, Plt Count 251, MPV 8.3, Neut % (Auto) 84.0 H, Lymph % (Auto) 9.5 L, [place] % (Auto) 6.2, Eos % (Auto) 0.1, Baso % (Auto) 0.2, Neut # (Auto) 14.0 H, Lymph # (Auto) 1.6, [place] # (Auto) 1.0, Eos # (Auto) 0.0, Baso # (Auto) 0.0, Total Counted 100, Neutrophils % (Manual) 86 H, Lymphocytes % (Manual) 8 L, Monocytes % (Manual) 6, Platelet Estimate Normal, RBC Morphology Normal 12/15/21 06:10: Sodium 136, Potassium 4.0, Chloride 105, Carbon Dioxide 27, Anion Gap 8.0, BUN 16, Creatinine 0.80, Estimated Creat Clear 149, Estimated GFR 101, Est GFR ( Amer) 122, Glucose 108 H, Calcium 10.2 12/15/21 19:38: TSH 0.18 L 12/15/21 19:38: ESR 46 H I & O for Last 24 hours: Intake & Output 12/13/21 12/14/21 12/15/21 12/16/21 11:59 11:59 11:59 11:59 Intake Total 3590 / 3590 2835 / 2835 Output Total 1000 / 1000 350 / 350 Balance 2590 / 2590 2485 / 2485 Weight 213 lb 217 lb 4 oz 217 lb 2.485 oz - *Routine Abdominal Exam Present: tenderness, distended
[2021-12-16 07:34] LABS: Basophils % 0.2 % (0.1-2.0); Eosinophils # 0.1 K/mm3 (0.0-0.4); Hematocrit 45.5 % (42.0-52.0); Hemoglobin 14.4 g/dL (14.1-18.0); Lymphocytes # 0.5 K/mm3 (0.7-4.5); Lymphocytes % 6.4 % (10-50); Mean Corpuscular HGB Conc 31.6 g/dL (31.8-35.4); Mean Corpuscular Hemoglobin 30.7 pg (27.0-31.2); Mean Corpuscular Volume 97.2 fl (80-94); Monocytes # 0.2 K/mm3 (0.1-1.0); Monocytes % 3.2 % (1.7-9.3); Neutrophils # 6.8 K/mm3 (1.8-7.8); Neutrophils % 89.2 % (37.0-80.0); Platelet Count 250 K/mm3 (142-424); Red Blood Count 4.68 M/mm3 (4.60-6.20); Red Cell Distribution Width 13.6 % (11.5-17.5); White Blood Count 7.7 K/mm3 (4.8-10.8)
[2021-12-16 07:39] LABS: MANUAL DIFFERENTIAL MANUAL DIFFERENTIAL (MANUAL DIFF)
[2021-12-16 07:44] LABS: Anion Gap 10.6 mEq/L (5-15); Blood Urea Nitrogen 20 mg/dl (9-20); Calcium 10.7 mg/dl (8.4-10.2); Carbon Dioxide 21 mmol/L (22.0-30.0); Chloride 106 mmol/L (98-107); Creatinine Clearance Estimated 132 mL/min (50-200); Estimated Glomerular Filt Rate 88 ml/min (>60); GFR (African American) 107 ML/MIN (>60); Glucose 113 mg/dl (74-100); Potassium 3.6 mmoL/L (3.5-5.1); Sodium 134 mmol/L (136-145)
--- NOTE | 2021-12-16 08:50 | PC.NURSE ---
Verbal consent received from Kathya Reese for surgery as well as pt. Pt to surgery @ [id number]. bed and gown changed prior to going to OR. Pt RR 40 and tachy/diaphoretic.
[2021-12-16 09:06] LABS: Lymphocytes % 13 % (10-50); Neutrophils % 79 % (42-76); Platelet Estimate Normal; RBC Morphology Normal; Total Cells Counted 100
--- NOTE | 2021-12-16 11:00 | SUR.OPER ---
1054-updated family in waiting room 1058-called Kathya Reese pt's next of kin/person to notify and updated at this time
--- NOTE | 2021-12-16 12:32 | SUR.OPER ---
1232-attempted to update family at this time, no family present in waiting room
--- NOTE | 2021-12-16 14:22 | HMH.OPNOTE ---
Date of procedure: 12/16/21 Pre-op Diagnosis:: Peritonitis Post-op Diagnosis:: Same Procedure performed:: Reopening of recent laparotomy. Extensive abdominal washout. Takedown of distal sigmoid anastomosis and creation of end colostomy. Surgeon:: Arsenio Marshall MD SECURITY DIRECTOR:: Jessika Mclaughlin Anesthesia: GETA Estimated blood loss (mL): 100 Clinical Note:: Patient is a 51-year-old male. For approximately 1 year he has had symptoms of distal large bowel obstruction. He has had several endoscopies which have not shown any intrinsic lesion consistent with adenocarcinoma. Most recently he underwent flexible sigmoidoscopy with dilatation of what appeared to be some luminal narrowing at about 25 cm from the anal verge. Patient then was started on dietary recommendations and MiraLAX. He was seen back in the office and it was felt that resection may be needed. Patient strongly desired proceeding with this. He was given a bowel preparation. Patient was scheduled for surgery and taken to the operating room on 12/14/2021. He was found to have a significant masslike lesion in the distal sigmoid colon densely adherent to surrounding tissues including the peritoneum and the bladder but there was no obvious fistula. Proximal colon was distended and thickened. He did undergo resection and attempt was made at primary anastomosis. There was some evidence of disruption of the anastomosis as it was checked intraoperatively and therefore this was redone and it required some oversewing and reinforcement. The anastomosis was tested intraoperatively and there was no evidence of any leak. However, due to the fact that the anastomosis had to be redone proximal diverting loop ileostomy was performed. The following day the patient had some abdominal soreness. He did undergo a cystogram which showed no evidence of any bladder issues and therefore his Segura catheter was removed. He had developed some tachycardia overnight beginning in the afternoon of 12/15/2021. He was given bolus which showed some transient improvement however in the early childhood associate hours of 12/16/2021 he developed recurrent tachycardia. Patient was seen on examination and had some tenderness in his abdomen seemingly out of proportion to merely surgical tenderness. It was felt that it would be appropriate to proceed with reopening of laparotomy due to potential for leakage at the anastomosis although he was diverted proximally. Arrangements were made for emergent laparotomy. Operative findings:: Patient had some anastomotic leak at his distal sigmoid anastomosis. There was appreciable amount of feces and undigested vegetable matter throughout the abdomen. Operative note:: Patient was taken emergently to the operating room. He was given preoperative intravenous antibiotics. He was positioned in a supine position. General anesthesia was induced. Segura catheter was inserted. Abdomen was prepped and draped in the standard surgical fashion. Skin roni were removed. Interestingly his incision was quite clean and intact. Subcutaneous tissues appeared unremarkable. Fascial suture was incised and peritoneum was entered. There was some appreciable liquid stool which exuded from the wound. This was suctioned free. There was relatively large amount of stool within the abdomen. This was all suctioned free and thorough irrigation was performed. Ultimately once much of the contamination was controlled and evacuated inspection was carried out in the pelvis. There was partial disruption with anastomotic leak of the distal sigmoid anastomosis. Given the inflamed tissues at this time plan was made to take this down. Anastomosis was incised sharply. The proximal colon was temporarily oversewn with a 2-0 running locking Vicryl to close the lumen. The distal rectosigmoid stump was then inspected. Consideration was being given for possible stapling across this. However mobilization was rather poor. It was the
--- NOTE | 2021-12-16 14:30 | P.PN_ITS ---
[facility] Anesthesia Record Part I Intake, IV Amount: 2,500 Estimated blood loss (mL): 100 Urine output (mL): 200 Blood Pressure: 111/51 SaO2: 91 Pulse Rate: 89 Respiratory Rate: 17 Temperature: 97.6 F Patient is:: Drowsy Stable to PACU at:: 14:15
[2021-12-16 15:12] LABS: POC Glucose,Bedside 111 (70-110)
--- NOTE | 2021-12-16 15:35 | ECG_ITS ---
APPROVED REPORT Exam: Resting ECG HR:83 bpm ECG Measurements Heart Rate 83 AXES AK 149 P 40 QRSd 105 QRS -12 QT 337 T -1 QTc 377 Conclusion SINUS RHYTHM NONSPECIFIC T-WAVE ABNORMALITY BORDERLINE ECG UNCONFIRMED REPORT Electronically signed by : Robert Reddy MD 12/21/2021 17:50:58
[2021-12-16 16:03] LABS: Microscopic,Cath URINE MICROSCOPIC (MICROSCOPIC)
[2021-12-16 16:05] LABS: Appearance,Urine/Cath CLEAR (Clear); Blood, Urine/Cath 2+ (Negative); Color,Urine/Cath AMBER (Yellow); Glucose,Urine/Cath (UA) TRACE (Negative); Ketones,Urine/Cath 1+ (Negative); Leukocyte Esterase,Cath TRACE (Negative); Nitrate,Cath POSITIVE (Negative); PH,Urine/Cath 7.5 (5.0-8.5); Protein,Urine/Cath 2+ (Negative); Specific Gravity, Urine/Cath 1.015 (1.005-1.030)
[2021-12-16 16:11] LABS: Bilirubin,Cath 2+ (Negative)
--- NOTE | 2021-12-16 16:12 | PC.NURSE ---
late entry.... 1455-CORAL Wen at bedside, pt's BP noted to be trending 80's systolic, pt medicated per CORAL Wen with Vasopressin 2 units, will continue to monitor, see anesthesia record for details, elevated T wave noted on telemetry, EKG ordered per CORAL Wen 1505-Pt's BP trending 80-90's systolic, notified DR. Marshall who ordered that pt really needed IV fluids r/t dehydration and urine color, ordered to increase fluid intake-IV maintenance fluids and as long as pt's MAP remained around 70 to not start pt on Levophed Drip at this time. Will notify MD if BP worsens and will notify stepdown nurse taking over care of pt. Checked pt's FSBS at this time with results of 111, awaiting respiratory to obtain EKG 1532-respiratory therapy at bedside, EKG noted to read Sinus Rhythm , pt okayed per CORAL Wen to be transported to stepdown room from PACU, detailed report called to DANIA العلي 1537-pt transported to 2nd floor room 218 SD per DANIA Estrada and CORAL Wen, pt left in care of DANIA العلي with bed locked in lowest position, family present, vss-BP stable upon arrival to floor, pt stable
[2021-12-16 16:15] LABS: Bacteria,Urine/Cath 1+ /lpf; Squamous Epithelial Ur./Cath Occasional #/hpf (0-5)
--- NOTE | 2021-12-16 19:32 | PC.NURSE ---
bp 95/64 (74), decreased levo drip to 6mcg/min
--- NOTE | 2021-12-16 19:46 | PC.NURSE ---
Received order for levo gtt and LR bolus as well as to resume lovenox tomorrow. Pt's VSS at this time. CB in reach. Report given.
--- NOTE | 2021-12-16 19:47 | PC.NURSE ---
bp 97/67 (77), decreased levo drip to 4mcg/min
--- NOTE | 2021-12-16 22:54 | PC.NURSE ---
2004-bp 91/63 (72), decreased levo drip to 2mcg/min 2019-bp 95/65 (75), held levo drip
[2021-12-17] VITALS (13 sets, daily range): BP systolic 88–130; BP diastolic 56–84; PULSE 80–103; RESP 18–34; TEMP 36.6–36.9; O2SAT 90–95; BMI 30.4
--- NOTE | 2021-12-17 06:38 | PC.NURSE ---
Addendum entered by Remedios Lee RN 12/17/21 06:48: stokes in place, UOP adequate but very dark Original Note: pt rested well overnight, pt with some pain throughout shift, embossing calender operator being utilized, no drainage to ileostomy but colostomy draining adequately, one EILEEN putting out more than the other but both draining serosanguineous fluid, NGT to lws put out 150mL green drainage for entire shift, bp stable levo drip turned off early in shift, HR less than 100 throughout shift, no fevers throughout shift, emv 15, perrla at 2mm, moves all extremities
[2021-12-17 08:25] LABS: Basophils # 0.1 K/mm3 (0-0.2); Basophils % 1.4 % (0.1-2.0); Eosinophils # 0.1 K/mm3 (0.0-0.4); Eosinophils % 0.6 % (0.1-12.0); Hematocrit 41.9 % (42.0-52.0); Hemoglobin 13.2 g/dL (14.1-18.0); Lymphocytes # 0.7 K/mm3 (0.7-4.5); Mean Corpuscular HGB Conc 31.4 g/dL (31.8-35.4); Mean Corpuscular Hemoglobin 30.1 pg (27.0-31.2); Mean Corpuscular Volume 95.9 fl (80-94); Mean Platelet Volume 10.4 fl (7.4-10.4); Monocytes # 0.2 K/mm3 (0.1-1.0); Monocytes % 2.9 % (1.7-9.3); Neutrophils # 6.4 K/mm3 (1.8-7.8); Neutrophils % 86.1 % (37.0-80.0); Platelet Count 229 K/mm3 (142-424); Red Blood Count 4.37 M/mm3 (4.60-6.20); Red Cell Distribution Width 13.4 % (11.5-17.5); White Blood Count 7.4 K/mm3 (4.8-10.8)
[2021-12-17 08:33] LABS: MANUAL DIFFERENTIAL MANUAL DIFFERENTIAL (MANUAL DIFF)
[2021-12-17 08:35] LABS: Blood Urea Nitrogen 28 mg/dl (9-20); Calcium 10.2 mg/dl (8.4-10.2); Carbon Dioxide 24 mmol/L (22.0-30.0); Chloride 108 mmol/L (98-107); Creatinine Clearance Estimated 108 mL/min (50-200); Estimated Glomerular Filt Rate 70 ml/min (>60); GFR (African American) 85 ML/MIN (>60); Glucose 94 mg/dl (74-100); Sodium 137 mmol/L (136-145)
--- NOTE | 2021-12-17 09:26 | PC.NURSE ---
per Dr. Marshall: pt to remain in step down
--- NOTE | 2021-12-17 09:31 | P.PN_ITS ---
Subjective Narrative: Patient taken back to operating room yesterday for takedown of rectosigmoid anastomosis due to anastomotic leak with creation of end colostomy and abdominal washout. Has taken appreciable amount of morphine via LASER SET UP OPERATOR overnight but not unexpected. Briefly was on Levophed postoperatively but this was discontinued. Progress Note: A&P (1) Postop check Status: Acute (2) Mass of colon Status: Acute (3) Abdominal pain Status: Acute (4) Colitis Status: Acute (5) Constipation Status: Acute (6) History of depression Status: Acute Assessment and Plan for All Diagnoses:: DC NG tube. Continue with IV fluid hydration. Continue antibiotics for peritonitis. Exam Vital signs and Labs for Last 24 Hours: Temp Pulse Resp BP Pulse Ox 98.0 F 98 H 18 130/84 95 12/17/21 08:00 12/17/21 08:00 12/17/21 08:00 12/17/21 08:00 12/17/21 08:00 Laboratory Results - last 24 hr 12/16/21 08:45: Urine Color Anita, Urine Appearance Clear, Urine pH 7.5, Ur Spec ific [place] 1.015, Urine Protein 2+, Urine Glucose (UA) Trace, Urine Ketones 1+, Urine Blood 2+, Urine Nitrate Positive, Urine Bilirubin 2+ A, Urine Urobilinogen 4.0, Ur Leukocyte Esterase Trace, Urine RBC 3-5, Urine WBC 3-5, Ur Squamous Epith Cells Occasional, Urine Bacteria 1+ 12/16/21 15:04: POC Glucose 111 H 12/17/21 07:09: WBC 7.4, RBC 4.37 L, Hgb 13.2 L, Hct 41.9 L, MCV 95.9 H, MCH 30.1, MCHC 31.4 L, RDW 13.4, Plt Count 229, MPV 10.4, Neut % (Auto) 86.1 H, Lymph % (Auto) 9.0 L, [place] % (Auto) 2.9, Eos % (Auto) 0.6, Baso % (Auto) 1.4, Neut # (Auto) 6.4, Lymph # (Auto) 0.7, [place] # (Auto) 0.2, Eos # (Auto) 0.1, Baso # (Auto) 0.1 12/17/21 07:09: Sodium 137, Potassium 4.0, Chloride 108 H, Carbon Dioxide 24, Anion Gap 9.0, BUN 28 H D, Creatinine 1.10 D, Estimated Creat Clear 108, Estimated GFR 70, Est GFR ( Amer) 85 D, Glucose 94, Calcium 10.2 I & O for Last 24 hours: Intake & Output 12/14/21 12/15/21 12/16/21 12/17/21 11:59 11:59 11:59 11:59 Intake Total 3590 / 3590 2835 / 2835 7869 / 7869 Output Total 1000 / 1000 350 / 350 1925 / 1925 Balance 2590 / 2590 2485 / 2485 5944 / 5944 Weight 217 lb 4 oz 217 lb 2.485 oz 217 lb 2.485 oz - *Routine Abdominal Exam Comments: His abdomen is relatively soft. Does have incisional tenderness. Dressing intact. He has good ileostomy output and some colostomy output.
[2021-12-17 09:39] LABS: Free Thyroxine Index 3.4 ug/dL (5.93-13.13); T4 (Thyroxine) 6.8 ug/dl (5.53-11.0); Triiodothryronine (T3) Uptake 50 % (23.5-40.5)
[2021-12-17 09:53] LABS: Thyroid Stimulating Hormone 0.25 uIU/mL (0.465-4.68)
--- NOTE | 2021-12-17 13:09 | PC.NURSE ---
Morphine PACKAGER HAND cartridge changed. Cleared hx of 58.9mg. Not sure when pump last cleared. Dr. Marshall aware of the total used.
[2021-12-17 13:12] LABS: Eosinophils % 1 % (0-3); Lymphocytes % 6 % (10-50); Monocytes % 2 % (2-9); Neutrophils % 83 % (42-76); Total Cells Counted 100
[2021-12-17 13:13] LABS: Platelet Estimate Normal; RBC Morphology Normal
--- NOTE | 2021-12-17 14:07 | HMH.ACPN2 ---
Internal Medicine - PN: Subj *Date: 12/17/21 *Time: 14:07 Interval history: FAMILY MEDICINE CONSULT FOLLOW-UP: PER DR. APARICIO THIS AM: Patient taken back to operating room yesterday for takedown of rectosigmoid anastomosis due to anastomotic leak with creation of end colostomy and abdominal washout. Has taken appreciable amount of morphine via COACH CLEANER overnight but not unexpected. Briefly was on Levophed postoperatively but this was discontinued. The patient is awake and alert and asks for ice chips. He looks good considering his difficulties. Asking for ice chips. NG discontinued this AM. Exam Vital signs and Labs for Last 24 Hours: Temp Pulse Resp BP Pulse Ox 98.0 F 101 H 34 H 93/56 L 91 L 12/17/21 12:00 12/17/21 12:00 12/17/21 12:00 12/17/21 12:00 12/17/21 12:00 Laboratory Results - last 24 hr 12/16/21 08:45: Urine Color Anita, Urine Appearance Clear, Urine pH 7.5, Ur Specific [place] 1.015, Urine Protein 2+, Urine Glucose (UA) Trace, Urine Ketones 1+, Urine Blood 2+, Urine Nitrate Positive, Urine Bilirubin 2+ A, Urine Urobilinogen 4.0, Ur Leukocyte Esterase Trace, Urine RBC 3-5, Urine WBC 3-5, Ur Squamous Epith Cells Occasional, Urine Bacteria 1+ 12/16/21 15:04: POC Glucose 111 H 12/17/21 07:09: WBC 7.4, RBC 4.37 L, Hgb 13.2 L, Hct 41.9 L, MCV 95.9 H, MCH 30.1, MCHC 31.4 L, RDW 13.4, Plt Count 229, MPV 10.4, Neut % (Auto) 86.1 H, Lymph % (Auto) 9.0 L, [place] % (Auto) 2.9, Eos % (Auto) 0.6, Baso % (Auto) 1.4, Neut # (Auto) 6.4, Lymph # (Auto) 0.7, [place] # (Auto) 0.2, Eos # (Auto) 0.1, Baso # (Auto) 0.1, Total Counted 100, Neutrophils % (Manual) 83 H, Band Neutrophils % 8.0, Lymphocytes % (Manual) 6 L, Monocytes % (Manual) 2, Eosinophils % (Manual) 1, Platelet Estimate Normal, RBC Morphology Normal 12/17/21 07:09: Sodium 137, Potassium 4.0, Chloride 108 H, Carbon Dioxide 24, Anion Gap 9.0, BUN 28 H D, Creatinine 1.10 D, Estimated Creat Clear 108, Estimated GFR 70, Est GFR ( Amer) 85 D, Glucose 94, Calcium 10.2 12/17/21 07:09: TSH 0.25 L D, Free T4 Index 3.4 L, Thyroxine (T4) 6.8, T3 Uptake 50 H I & O for Last 24 hours: Intake & Output 12/15/21 12/16/21 12/17/21 12/18/21 11:59 11:59 11:59 11:59 Intake Total 3590 / 3590 2835 / 2835 7869 / 7869 Output Total 1000 / 1000 350 / 350 1925 / 1925 Balance 2590 / 2590 2485 / 2485 5944 / 5944 Weight 217 lb 4 oz 217 lb 2.485 oz 217 lb 2.485 oz - *Routine HEENT Exam Head: Present: normocephalic Eye: Present: EOMI, PERRL ENT: Present: mucous membranes moist - *Routine Neck Exam Present: supple. Absent: lymphadenopathy - *Routine Respiratory Exam Present: CTA bilaterally - *Routine Cardiovascular Exam Present: RRR - *Routine Abdominal Exam Present: tenderness (as expected), ostomy (functioning, dark stool.). Absent: distended - *Routine Extremities Exam Absent: cyanosis, clubbing, edema (Flotron in place) - *Routine Skin Exam Present: warm. Absent: rash - *Routine Neurological Exam Present: alert, oriented X3 Assessment and Plan (1) Postop check Status: Acute Category: Medical Code(s): Z09 - Encounter for follow-up examination after completed treatment for conditions other than malignant neoplasm (2) Mass of colon Status: Acute Category: Medical Code(s): K63.89 - Other specified diseases of intestine (3) Abdominal pain Status: Acute Category: Medical Code(s): R10.9 - Unspecified abdominal pain (4) Dehisced intestinal anastomosis Status: Acute Category: Medical Code(s): K91.89 - Other postprocedural complications and disorders of digestive system; T81.32XA - Disruption of internal operation (surgical) wound, not elsewhere classified, initial encounter (5) Colitis Status: Acute Category: Medical Code(s): K52.9 - Noninfective gastroenteritis and colitis, unspecified (6) Constipation Status: Acute Category: Medical Code(s): K59.00 - Constipation, unspecified (7) History of depression Status: Acu
--- NOTE | 2021-12-17 14:56 | HMH.ITSTN ---
spoke to Dr. Zelaya -- thyroid US ordered routine I ask if he wants someone called in or just do it on Saturday and he said it is fine to do Saturday. I will modify date to Saturday
--- NOTE | 2021-12-17 17:53 | PC.NURSE ---
shift summary: Pt has improved this shift. Is A&O. NPO except ice chips. NG tube was removed early this morning. No n/v. Ileostomy and colostomy appliances changed. Midline abd incision dressing changed. Both LLQ EILEEN drains emptied. Colostomy bag emptied twice. Stool is brown and soft. Ileostomy bag emptied once and is dark brown/green liquid. No s/s of infection noted. Has been afebrile. HR and BP improved with LR infusing @ 200mL/hr. NSR on tele, sinus tach @ times. Segura cath with eric UOP, which has improved in color with IVF. O2 sat low 90s on 2L NC. RR improved and is now 16-20s. Has not been diaphoretic. BLE SCDs present. Pt turned Q2hrs with assist. Morphine MANAGER POST available.
[2021-12-18] VITALS (16 sets, daily range): BP systolic 104–133; BP diastolic 63–88; PULSE 86–102; RESP 24–31; TEMP 36.9–38.3; O2SAT 90–96; BMI 32.3
--- NOTE | 2021-12-18 06:09 | PC.NURSE ---
pt rested throughout shift, pt using farm hand some when awake, pt uses incentive spirometer while awake but only to 500mL, HR 90-low 100's throughout shift, bp stable, sats 89-90% on 2LNC for most of shift but at 0600 had to increase to 3LNC for sats 89-90%, slight fever of 99.2 this morning turned pt's fan on, pt tachypneic throughout shift, stoma on left putting out pasty soft stool, stoma on right had scant amount of green liquid in bag, EILEEN drains not putting out as much as prior shift and fluid is now serous, emv 15, moves all extremities, mild JVD noted this morning
[2021-12-18 06:22] LABS: Basophils % 0.5 % (0.1-2.0); Eosinophils # 0.2 K/mm3 (0.0-0.4); Eosinophils % 3.1 % (0.1-12.0); Hematocrit 39.8 % (42.0-52.0); Mean Corpuscular HGB Conc 29.4 g/dL (31.8-35.4); Mean Corpuscular Hemoglobin 29.3 pg (27.0-31.2); Mean Corpuscular Volume 99.5 fl (80-94); Mean Platelet Volume 10.4 fl (7.4-10.4); Monocytes # 0.2 K/mm3 (0.1-1.0); Monocytes % 2.3 % (1.7-9.3); Neutrophils # 6.5 K/mm3 (1.8-7.8); Neutrophils % 81.2 % (37.0-80.0); Platelet Count 227 K/mm3 (142-424); Red Blood Count 4.01 M/mm3 (4.60-6.20); Red Cell Distribution Width 13.4 % (11.5-17.5)
[2021-12-18 06:24] LABS: Hemoglobin 11.7 g/dL (14.1-18.0)
[2021-12-18 06:25] LABS: Anion Gap 7.6 mEq/L (5-15); Blood Urea Nitrogen 27 mg/dl (9-20); Calcium 10.6 mg/dl (8.4-10.2); Carbon Dioxide 26 mmol/L (22.0-30.0); Chloride 107 mmol/L (98-107); Creatinine Clearance Estimated 140 mL/min (50-200); Estimated Glomerular Filt Rate 88 ml/min (>60); GFR (African American) 107 ML/MIN (>60); Glucose 72 mg/dl (74-100); Potassium 3.6 mmoL/L (3.5-5.1); Sodium 137 mmol/L (136-145)
--- NOTE | 2021-12-18 09:23 | P.PN_ITS ---
Subjective Narrative: No acute events overnight. Progress Note: A&P (1) Postop check Status: Acute (2) Mass of colon Status: Acute (3) Abdominal pain Status: Acute (4) Dehisced intestinal anastomosis Status: Acute (5) Colitis Status: Acute (6) Constipation Status: Acute (7) History of depression Status: Acute (8) Hyperthyroidism Status: Acute Assessment and Plan for All Diagnoses:: Patient is tachypneic. Urine output improved at this time. Will decrease IV fluids and change to D5 half with 20 KCl. Continue dressing changes. Continue antibiotics. I will check a chest x-ray. Exam Vital signs and Labs for Last 24 Hours: Temp Pulse Resp BP Pulse Ox 99.2 F 96 H 27 H 105/63 L 90 L 12/18/21 06:00 12/18/21 06:00 12/18/21 06:00 12/18/21 06:00 12/18/21 06:00 Laboratory Results - last 24 hr 12/17/21 07:09: Total Counted 100, Neutrophils % (Manual) 83 H, Band Neutrophils % 8.0, Lymphocytes % (Manual) 6 L, Monocytes % (Manual) 2, Eosinophils % (Manual) 1, Platelet Estimate Normal, RBC Morphology Normal 12/17/21 07:09: TSH 0.25 L D, Free T4 Index 3.4 L, Thyroxine (T4) 6.8, T3 Uptake 50 H 12/18/21 05:30: WBC 8.0, RBC 4.01 L, Hgb 11.7 L D, Hct 39.8 L, MCV 99.5 H, MCH 29.3, MCHC 29.4 L, RDW 13.4, Plt Count 227, MPV 10.4, Neut % (Auto) 81.2 H, Lymph % (Auto) 13.0, [place] % (Auto) 2.3, Eos % (Auto) 3.1, Baso % (Auto) 0.5, Neut # (Auto) 6.5, Lymph # (Auto) 1.0, [place] # (Auto) 0.2, Eos # (Auto) 0.2, Baso # (Auto) 0.0 12/18/21 05:30: Sodium 137, Potassium 3.6, Chloride 107, Carbon Dioxide 26, Anion Gap 7.6, BUN 27 H, Creatinine 0.90, Estimated Creat Clear 140, Estimated GFR 88, Est GFR ( Amer) 107 D, Glucose 72 L D, Calcium 10.6 H I & O for Last 24 hours: Intake & Output 12/15/21 12/16/21 12/17/21 12/18/21 11:59 11:59 11:59 11:59 Intake Total 3590 / 3590 2835 / 2835 7869 / 7869 4847 / 4847 Output Total 1000 / 1000 350 / 350 1925 / 1925 2625 / 2625 Balance 2590 / 2590 2485 / 2485 5944 / 5944 2222 / 2222 Weight 217 lb 4 oz 217 lb 2.485 oz 217 lb 2.485 oz 230 lb 9.6 oz - *Routine Abdominal Exam Present: soft, tenderness Comments: Ileostomy and colostomy with significant output.
--- NOTE | 2021-12-18 09:27 | XR_ITS ---
PROCEDURE INFORMATION: Exam: XR Chest Exam date and time: 12/18/2021 9:46 AM Age: 51 years old Clinical indication: Shortness of breath and tachypnea; Additional info: Shortness of breath, tachypnea TECHNIQUE: Imaging protocol: Radiologic exam of the chest. Views: 1 view. COMPARISON: CR XR CHEST 2V 09/05/2020 11:43 AM FINDINGS: Lungs: Low lung volumes with patchy bibasilar airspace opacities. Pleural spaces: Small left pleural effusion. No pneumothorax. Heart/Mediastinum: Unremarkable. No cardiomegaly. Bones/joints: Unremarkable. IMPRESSION: 1. Patchy bibasilar airspace opacities may reflect atelectasis versus pneumonia. 2. Small left pleural effusion.
--- NOTE | 2021-12-18 18:30 | PC.NURSE ---
Addendum entered by Polina Lee RN 12/18/21 18:54: offered oral care this shift as well. pt did not want, the first few times offered. oral care eventually able to be given. Addendum entered by Polina Lee RN 12/18/21 18:38: pt BE drains were emptied at time of dressing changes. brown/green fluid noted to be in be drains. bottom of midline dressing noted to have brown green drainage. packing removed from incision noted to be pea soup green. Original Note: pt has slept all shift. his complexion is noted to be mika, red and diaphoretic. pt breathing is tachypneic. pt hr has maintained less than 100 this shift. nad noted. pt dressing to midline site was changed as well as both ostomy sites. pt had refused to get up to the chair this shift. pt began to have a temp around 1130 this afternoon, so pt was allowed to rest. pt was noted to be lying in the same position. when he was approached abou the need to turn, he was very unhappy with the suggestion. pt was turned at that time with staff to prevent breakdown. pt has complained of being cold when he was febrile. (it was explained to pt and family present that this was a typical symptom of having a fever) pt and family were repeatedly told that when pt was febrile that he DID NOT need to have a blanket on as this will increase fever. family repeatedly disregarded staff suggestions. Dr Marshall was updated on pt condition, vitals and lack of cooperation/understanding. placed order for additional abx. medical genetics director per aug.
[2021-12-19] VITALS (14 sets, daily range): BP systolic 103–139; BP diastolic 63–90; PULSE 63–94; RESP 25–36; TEMP 36.2–37.6; O2SAT 91–96; BMI 32.3
--- NOTE | 2021-12-19 06:40 | HMH.GSPN ---
Subjective Narrative: Patient without significant complaints. States he may feel somewhat better . Progress Note: A&P (1) Postop check Status: Acute (2) Mass of colon Status: Acute (3) Abdominal pain Status: Acute (4) Dehisced intestinal anastomosis Status: Acute (5) Colitis Status: Acute (6) Constipation Status: Acute (7) History of depression Status: Acute (8) Hyperthyroidism Status: Acute Assessment and Plan for All Diagnoses:: Continue broad-spectrum IV antibiotics. Currently on Invanz and Zosyn. Dressing changes. Monitor drain output. Hopefully out of bed to chair today. Once he is up and out of bed and more alert may be able to start slowly advancing diet. Exam Vital signs and Labs for Last 24 Hours: Temp Pulse Resp BP Pulse Ox 99.7 F H 92 H 36 H 132/85 93 L 12/19/21 06:00 12/19/21 06:00 12/19/21 06:00 12/19/21 06:00 12/19/21 06:00 I & O for Last 24 hours: Intake & Output 12/16/21 12/17/21 12/18/21 12/19/21 11:59 11:59 11:59 11:59 Intake Total 2835 / 2835 7869 / 7869 4847 / 4847 3689 / 3689 Output Total 350 / 350 1925 / 1925 2625 / 2625 1969 / 1969 Balance 2485 / 2485 5944 / 5944 2222 / 2222 1719 / 1719 Weight 217 lb 2.485 oz 217 lb 2.485 oz 230 lb 9.6 oz 230 lb 12.8 oz - *Routine Abdominal Exam Present: tenderness Comments: Some incisional tenderness. Ileostomy and colostomy viable with good output. EILEEN drain output appears somewhat thin feculent.
--- NOTE | 2021-12-19 06:55 | PC.NURSE ---
cleared pt's wireless manager pump when changed medication syringe, 29.6mL cleared
[2021-12-19 07:29] LABS: Anion Gap 7.3 mEq/L (5-15); Blood Urea Nitrogen 22 mg/dl (9-20); Calcium 10.5 mg/dl (8.4-10.2); Carbon Dioxide 26 mmol/L (22.0-30.0); Chloride 107 mmol/L (98-107); Creatinine Clearance Estimated 158 mL/min (50-200); Estimated Glomerular Filt Rate 101 ml/min (>60); GFR (African American) 122 ML/MIN (>60); Glucose 87 mg/dl (74-100); Potassium 3.3 mmoL/L (3.5-5.1); Sodium 137 mmol/L (136-145)
[2021-12-19 07:36] LABS: Basophils # 0.1 K/mm3 (0-0.2); Basophils % 0.5 % (0.1-2.0); Eosinophils # 0.3 K/mm3 (0.0-0.4); Eosinophils % 2.6 % (0.1-12.0); Lymphocytes # 0.9 K/mm3 (0.7-4.5); Lymphocytes % 8.5 % (10-50); Mean Corpuscular HGB Conc 34.2 g/dL (31.8-35.4); Mean Corpuscular Hemoglobin 30.5 pg (27.0-31.2); Mean Corpuscular Volume 89.3 fl (80-94); Mean Platelet Volume 8.8 fl (7.4-10.4); Monocytes # 0.7 K/mm3 (0.1-1.0); Monocytes % 7.3 % (1.7-9.3); Neutrophils # 8.2 K/mm3 (1.8-7.8); Neutrophils % 81.1 % (37.0-80.0); Platelet Count 244 K/mm3 (142-424); Red Blood Count 3.93 M/mm3 (4.60-6.20); Red Cell Distribution Width 13.1 % (11.5-17.5); White Blood Count 10.1 K/mm3 (4.8-10.8)
--- NOTE | 2021-12-19 08:00 | US_ITS ---
FINAL REPORT CLINICAL HISTORY: abnormal thyroid functions FINDINGS: Sonographic images of the thyroid were obtained. The right lobe of the thyroid measures 2.5 x 4.4 x 3.2 cm. The left lobe of the thyroid measures 0.9 x 2.3 x 1.1 cm. There is a solid, isoechoic nodule in the right lobe of the thyroid measuring 29 x 48 x 27 mm. Nodule is consistent with TI-RADS category 3. The isthmus is normal. IMPRESSION: Right thyroid lobe nodule. Recommend ultrasound-guided biopsy. Reviewed, Interpreted and Dictated by Arsenio Garcias III, MD Transcribed by Minal Loving Authenticated and . [facility]
--- NOTE | 2021-12-19 08:28 | HMH.ACPN2 ---
Internal Medicine - PN: Subj *Date: 12/19/21 *Time: 08:28 Interval history: FAMILY MEDICINE NOTE: The patient remained stable. See surgical note. Potassium is low at 3.3. Chest x-ray shows evidence of atelectasis and small left pleural effusion. Exam Vital signs and Labs for Last 24 Hours: Temp Pulse Resp BP Pulse Ox 99.7 F H 92 H 36 H 132/85 93 L 12/19/21 06:00 12/19/21 06:00 12/19/21 06:00 12/19/21 06:00 12/19/21 06:00 Laboratory Results - last 24 hr 12/19/21 05:50: WBC 10.1 D, RBC 3.93 L, Hgb 12.0 L, Hct 35.0 L, MCV 89.3, MCH 30.5, MCHC 34.2, RDW 13.1, Plt Count 244, MPV 8.8, Neut % (Auto) 81.1 H, Lymph % (Auto) 8.5 L, [place] % (Auto) 7.3, Eos % (Auto) 2.6, Baso % (Auto) 0.5, Neut # (Auto) 8.2 H, Lymph # (Auto) 0.9, [place] # (Auto) 0.7, Eos # (Auto) 0.3, Baso # (Auto) 0.1 12/19/21 05:50: Sodium 137, Potassium 3.3 L, Chloride 107, Carbon Dioxide 26, Anion Gap 7.3, BUN 22 H, Creatinine 0.80, Estimated Creat Clear 158, Estimated GFR 101, Est GFR ( Amer) 122, Glucose 87, Calcium 10.5 H I & O for Last 24 hours: Intake & Output 12/16/21 12/17/21 12/18/21 12/19/21 11:59 11:59 11:59 11:59 Intake Total 2835 / 2835 7869 / 7869 4847 / 4847 3689 / 3689 Output Total 350 / 350 1925 / 1925 2625 / 2625 1970 / 1969 Balance 2485 / 2485 5944 / 5944 2222 / 2222 1719 / 1719 Weight 217 lb 2.485 oz 217 lb 2.485 oz 230 lb 9.6 oz 230 lb 12.8 oz - Constitutional no acute distress - *Routine HEENT Exam Head: Present: normocephalic Eye: Present: EOMI, PERRL ENT: Present: mucous membranes moist - *Routine Neck Exam Present: supple. Absent: lymphadenopathy, thyromegaly - *Routine Respiratory Exam Present: decreased breath sounds, rhonchi (Upper airway) - *Routine Cardiovascular Exam Present: RRR - *Routine Abdominal Exam Present: soft, tenderness, ostomy - *Routine Extremities Exam Absent: edema (Flowtron in place) - *Routine Skin Exam Present: warm. Absent: rash - *Routine Neurological Exam Present: alert, oriented X3. Absent: altered mental status Assessment and Plan (1) Postop check Status: Acute Category: Medical Code(s): Z09 - Encounter for follow-up examination after completed treatment for conditions other than malignant neoplasm (2) Mass of colon Status: Acute Category: Medical Code(s): K63.89 - Other specified diseases of intestine (3) Abdominal pain Status: Acute Category: Medical Code(s): R10.9 - Unspecified abdominal pain (4) Dehisced intestinal anastomosis Status: Acute Category: Medical Code(s): K91.89 - Other postprocedural complications and disorders of digestive system; T81.32XA - Disruption of internal operation (surgical) wound, not elsewhere classified, initial encounter (5) Colitis Status: Acute Category: Medical Code(s): K52.9 - Noninfective gastroenteritis and colitis, unspecified (6) Constipation Status: Acute Category: Medical Code(s): K59.00 - Constipation, unspecified (7) History of depression Status: Acute Category: Medical Code(s): Z86.59 - Personal history of other mental and behavioral disorders (8) Hyperthyroidism Status: Acute Category: Medical Code(s): E05.90 - Thyrotoxicosis, unspecified without thyrotoxic crisis or storm (9) Hypokalemia Status: Acute Category: Medical Code(s): E87.6 - Hypokalemia (10) Atelectasis Status: Acute Category: Medical Code(s): J98.11 - Atelectasis - Assessment and plan all Dx Assessment and Plan for all problems:: Chest physiotherapy ordered. Potassium ordered p.o.
[2021-12-19 11:09] LABS: Triiodothyronine (T3) Free 1.9 pg/mL (2.0-4.4)
--- NOTE | 2021-12-19 11:54 | PC.NURSE ---
Called and notified Dr flowers's office at 1045 that per documentation, pt has gained approx 15 pounds since 12/17
--- NOTE | 2021-12-19 14:43 | HMH.ANESII ---
[facility] Anesthesia Record Part II Discharge Time: 15:35 Destination: Medical Surgical Department PACU nurse assessment reviewed?: Yes Patient Condition:: Good Anesthesia Complications:: None Swallowing reflex intact?: Yes Cyanosis?: No Blood Pressure: 122/89 Pulse Rate: 80 Temperature: 97.1 F Mental Status: Alert & Oriented Pain level:: 0 Nausea and/or vomitting:: None Intake, IV Amount: 0
--- NOTE | 2021-12-19 15:13 | PC.NURSE ---
assisted with dressing change on abdomen and colostomy change. patient is not eager to participate in changes at this time. stated he had no questions. pain with dressing change noted. no concerns or questions. will attempt more teaching with each change.
--- NOTE | 2021-12-19 18:28 | PC.NURSE ---
pt has remained slightly less febrile this shift. nad. lungs still contain scattered rhonchi, 20 iv lasix ordered by Dr Zelaya r/t 15lbs weight gain from 12/17 to today. will monitor for increased output. pt ostomy sites and midline dressing were changed by myself with assistance from Genesis Mota RN. 2 areas of packing still noted on midline incision. pt did not tolerate dressing change very well. pt also has not been compliant with most of the care/treatments when offered by most of the staff. when pt was approached about getting up to chair by a male staff, pt was very agreeable. pt up to chair at this time. Dr napier notified of pt noncompliance at times.
--- NOTE | 2021-12-19 20:12 | PC.NURSE ---
CHRIS Streeter changed pt's bed, got pt back to bed from chair; pt very weak, took 3 people to get pt back to bed from chair, pt cannot stand up straight or bear much weight at all on own, once pt back in bed pt unable to assist with turning or pulling up in bed much at all, educated pt to try and move more to improve lung function and healing, pt hit button on snuff maker after got back into bed and day DANIA Fish gave scheduled toradol to assist with increased pain; pt tachypneic and with loose sound in throat when breathing, encouraged pt to cough, pt's cough very weak, instructed pt to hold pillow over abdomen and try to cough deeply, pt attempted to but unsuccessful, sound in throat did clear; asked pt to use incentive spirometer, pt attempted to but could not raise to even 500mL at this time, told pt to use that 10 times an hour while awake and will help with atelectasis
[2021-12-20] VITALS (13 sets, daily range): BP systolic 107–145; BP diastolic 67–95; PULSE 65–88; RESP 23–38; TEMP 36.1–37.1; O2SAT 91–97; BMI 32.6
--- NOTE | 2021-12-20 05:16 | PC.NURSE ---
pt rested well this shift, pt's vss, NSR throughout shift, still tachypneic but less than previous shift, no fevers this shift, pt reluctant to move frequently due to pain educated pt on effects of early mobility and positive outcomes after surgery, emv 15, perrla at 2mm, moves all extremities, using plant assigner pump for pain often when awake, encouraging pt to cough and deep breathe frequently, stoma on left putting out small amount of brown liquid stool, stoma on right putting out very small amount of green liquid, dressing CDI (dressing and both appliances changed yesterday on day shift), EILEEN drains putting out small amounts of ayala/brown fluid, pt with stokes putting out adequate eric UOP, MIVF running at 125mL/hr
--- NOTE | 2021-12-20 06:24 | PC.NURSE ---
pt rested well this shift, pt's vss, NSR throughout shift, still tachypneic but less than previous shift, no fevers this shift, pt reluctant to move frequently due to pain educated pt on effects of early mobility and positive outcomes after surgery, emv 15, perrla at 2mm, moves all extremities, using bulk fluids handler pump for pain often when awake, encouraging pt to cough and deep breathe frequently, stoma on left putting out scant amount of brown liquid stool, stoma on right putting out small amount of dark green liquid, dressing CDI (dressing and both appliances changed yesterday on day shift), EILEEN drains putting out small amounts of ayala/brown fluid, pt with stokes putting out adequate eric UOP, MIVF running at 125mL/hr
[2021-12-20 06:33] LABS: Basophils # 0.1 K/mm3 (0-0.2); Basophils % 0.9 % (0.1-2.0); Eosinophils # 0.4 K/mm3 (0.0-0.4); Eosinophils % 3.8 % (0.1-12.0); Hemoglobin 11.2 g/dL (14.1-18.0); Lymphocytes # 1.4 K/mm3 (0.7-4.5); Lymphocytes % 13.7 % (10-50); Mean Corpuscular HGB Conc 30.2 g/dL (31.8-35.4); Mean Corpuscular Hemoglobin 29.3 pg (27.0-31.2); Mean Corpuscular Volume 96.9 fl (80-94); Mean Platelet Volume 8.8 fl (7.4-10.4); Monocytes # 0.7 K/mm3 (0.1-1.0); Monocytes % 7.6 % (1.7-9.3); Neutrophils # 7.3 K/mm3 (1.8-7.8); Neutrophils % 74.1 % (37.0-80.0); Platelet Count 240 K/mm3 (142-424); Red Blood Count 3.82 M/mm3 (4.60-6.20); Red Cell Distribution Width 13.7 % (11.5-17.5); White Blood Count 9.8 K/mm3 (4.8-10.8)
[2021-12-20 06:43] LABS: Anion Gap 6.6 mEq/L (5-15); Blood Urea Nitrogen 23 mg/dl (9-20); Calcium 10.6 mg/dl (8.4-10.2); Carbon Dioxide 28 mmol/L (22.0-30.0); Chloride 107 mmol/L (98-107); Creatinine Clearance Estimated 160 mL/min (50-200); Estimated Glomerular Filt Rate 101 ml/min (>60); GFR (African American) 122 ML/MIN (>60); Glucose 104 mg/dl (74-100); Potassium 3.6 mmoL/L (3.5-5.1); Sodium 138 mmol/L (136-145)
--- NOTE | 2021-12-20 07:40 | HMH.GSPN ---
Subjective Narrative: Nursing has expressed concerns with regard to overall deconditioning and lack of mobility. Per nursing, the patient is showing limited interest . Progress Note: A&P (1) Postop check Status: Acute Assessment and plan: Abdominal dressing/ostomy appliances to be changed this morning (2) Mass of colon Status: Acute (3) Abdominal pain Status: Acute (4) Dehisced intestinal anastomosis Status: Acute (5) Colitis Status: Acute (6) Constipation Status: Acute (7) History of depression Status: Acute (8) Hyperthyroidism Status: Acute (9) Hypokalemia Status: Acute (10) Atelectasis Status: Acute (11) Physical deconditioning Status: Acute Assessment and plan: PT consult ordered (12) Postoperative ileus Status: Acute Assessment and plan: Improving. Significant volume within diverting loop ileostomy bag. Clear liquids cautiously Exam Vital signs and Labs for Last 24 Hours: Temp Pulse Resp BP Pulse Ox 97.4 F L 70 24 116/84 97 12/20/21 04:00 12/20/21 06:00 12/20/21 06:00 12/20/21 06:00 12/20/21 06:00 Laboratory Results - last 24 hr 12/17/21 15:05: Free T3 1.9 L 12/20/21 05:42: WBC 9.8, RBC 3.82 L, Hgb 11.2 L, Hct 37.0 L, MCV 96.9 H, MCH 29.3, MCHC 30.2 L, RDW 13.7, Plt Count 240, MPV 8.8, Neut % (Auto) 74.1, Lymph % (Auto) 13.7, [place] % (Auto) 7.6, Eos % (Auto) 3.8, Baso % (Auto) 0.9, Neut # (Auto) 7.3, Lymph # (Auto) 1.4, [place] # (Auto) 0.7, Eos # (Auto) 0.4, Baso # (Auto) 0.1 12/20/21 05:42: Sodium 138, Potassium 3.6, Chloride 107, Carbon Dioxide 28, Anion Gap 6.6, BUN 23 H, Creatinine 0.80, Estimated Creat Clear 160, Estimated GFR 101, Est GFR ( Amer) 122, Glucose 104 H, Calcium 10.6 H I & O for Last 24 hours: Intake & Output 12/17/21 12/18/21 12/19/21 12/20/21 11:59 11:59 11:59 11:59 Intake Total 7869 / 7869 4847 / 4847 3689 / 3689 3067 / 3067 Output Total 1924 / 1924 2625 / 2625 1969 / 1969 2024 / 2024 Balance 5944 / 5944 2222 / 2222 1719 / 1719 1042 / 1042 Weight 217 lb 2.485 oz 230 lb 9.6 oz 230 lb 12.8 oz 233 lb 8 oz - Constitutional no acute distress - *Routine Respiratory Exam Absent: respiratory distress - *Routine Cardiovascular Exam Absent: tachycardia - *Routine Abdominal Exam Comments: Dressings in place. Some soilage/leakage along inferior margin of dressing. Significant amount of volume within diverting loop ileostomy bag.
--- NOTE | 2021-12-20 08:14 | PC.NURSE ---
Morphine VISCOSE CELLAR WORKER total cleared. Pump was not cleared on nightshift, not sure when it was last cleared. 19mg cleared. Will clear again at end of shift. Dr. Sherman aware.
--- NOTE | 2021-12-20 08:30 | PC.NURSE ---
Cleared 19mg from Morphine FORESTRY WORKERS.
--- NOTE | 2021-12-20 10:52 | HMH.ACPN ---
Internal Medicine - PN: Subj *Date: 12/20/21 *Time: 10:52 Exam Vital signs and Labs for Last 24 Hours: Temp Pulse Resp BP Pulse Ox 96.9 F L 69 29 H 118/80 97 12/20/21 08:00 12/20/21 10:00 12/20/21 10:00 12/20/21 10:00 12/20/21 10:00 Laboratory Results - last 24 hr 12/17/21 15:05: Free T3 1.9 L 12/20/21 05:42: WBC 9.8, RBC 3.82 L, Hgb 11.2 L, Hct 37.0 L, MCV 96.9 H, MCH 29.3, MCHC 30.2 L, RDW 13.7, Plt Count 240, MPV 8.8, Neut % (Auto) 74.1, Lymph % (Auto) 13.7, [place] % (Auto) 7.6, Eos % (Auto) 3.8, Baso % (Auto) 0.9, Neut # (Auto) 7.3, Lymph # (Auto) 1.4, [place] # (Auto) 0.7, Eos # (Auto) 0.4, Baso # (Auto) 0.1 12/20/21 05:42: Sodium 138, Potassium 3.6, Chloride 107, Carbon Dioxide 28, Anion Gap 6.6, BUN 23 H, Creatinine 0.80, Estimated Creat Clear 160, Estimated GFR 101, Est GFR ( Amer) 122, Glucose 104 H, Calcium 10.6 H I & O for Last 24 hours: Intake & Output 12/17/21 12/18/21 12/19/21 12/20/21 23:59 23:59 23:59 23:59 Intake Total 5783 / 5783 4554 / 4554 2662 / 2662 1972 / 1972 Output Total 2130 / 2130 2895 / 2895 2220 / 2220 525 / 525 Balance 3653 / 3653 1659 / 1659 442 / 442 1448 / 1448 Weight 98.5 kg 104.598 kg 104.689 kg 105.914 kg Assessment and Plan (1) Postop check Status: Acute Category: Medical Code(s): Z09 - Encounter for follow-up examination after completed treatment for conditions other than malignant neoplasm (2) Mass of colon Status: Acute Category: Medical Code(s): K63.89 - Other specified diseases of intestine (3) Abdominal pain Status: Acute Category: Medical Code(s): R10.9 - Unspecified abdominal pain (4) Dehisced intestinal anastomosis Status: Acute Category: Medical Code(s): K91.89 - Other postprocedural complications and disorders of digestive system; T81.32XA - Disruption of internal operation (surgical) wound, not elsewhere classified, initial encounter (5) Colitis Status: Acute Category: Medical Code(s): K52.9 - Noninfective gastroenteritis and colitis, unspecified (6) Constipation Status: Acute Category: Medical Code(s): K59.00 - Constipation, unspecified (7) History of depression Status: Acute Category: Medical Code(s): Z86.59 - Personal history of other mental and behavioral disorders (8) Hyperthyroidism Status: Acute Category: Medical Code(s): E05.90 - Thyrotoxicosis, unspecified without thyrotoxic crisis or storm (9) Hypokalemia Status: Acute Category: Medical Code(s): E87.6 - Hypokalemia (10) Atelectasis Status: Acute Category: Medical Code(s): J98.11 - Atelectasis (11) Physical deconditioning Status: Acute Category: Medical Code(s): R53.81 - Other malaise (12) Postoperative ileus Status: Acute Category: Medical Code(s): K91.89 - Other postprocedural complications and disorders of digestive system; K56.7 - Ileus, unspecified The patient's infection will respond to the chosen ABx?: Yes Is the patient receiving the right drug, dose, and route?: Yes Could a more targeted ABx be ordered?: No (AFEBRILE, WBC WNL.)
--- NOTE | 2021-12-20 11:55 | HMH.PTEV ---
Physical Therapy Evaluation Rehab PT IP Evaluation Start: 12/20/21 07:38 Freq: ONCE Status: Active Protocol: Document 12/20/21 11:48 PHORHARISH (Rec: 12/20/21 11:54 PHORNE [id number]) Subjective/History History History 51 yowm adm to [facility] with abdominal mass, now S/P ex-lap with mass excision and large bowel resection. He reports he lives alone, but has family close by and no steps to enter the home. He reports prior to adm he was independent with all mobility. Subjective Subjective He reports his upper chest and abdomen are sore this am. Rehab PT IP Eval Objective Appearance Patient Behavior Appropriate Patient Orientation Person,Place,Time Difficulty following instructions none Speech Pattern Clear Ambulation Patient Able to Ambulate Yes Ambulation Observation IP General Gait Pattern Observation Shuffling Step Ambulation Distance (feet) 3 Ambulation Assistive Device Rolling Walker Ambulation Ability Moderate x 1 (50% assist) Balance Ability to Arise Able, uses arms to help Sitting Balance Steady, safe Standing Balance Unsteady Dynamic Sitting Balance Ability Fair Dynamic Standing Balance Ability Fair Transfers Bed Transfer Ability Moderate x 1 (50% assist) Chair Transfer Ability Moderate x 1 (50% assist) Sit to Stand Bed Transfer Ability Moderate x 1 (50% assist) Sit to Stand Chair Transfer Ability Moderate x 1 (50% assist) Rehab PT IP prob,goals,plan Problems Date of Evaluation: 12/20/21 PT IP Problems Bed Mobility,Transfers,Gait, Self care Rehab Potential Rehab Potential Good Plan PT Intervention Plan Bed Mobility,Transfers,Gait, Self care,Therapeutic Exercise PT Plan Frequency BID Duration LOS Discharge Goals Bed Transfer Ability Minimal x 2 (25% assist) Sit to Stand Chair Transfer Ability Minimal x 2 (25% assist) Ambulation Assistive Device Rolling Walker Ambulation Distance (feet) 20 Discharge Plan PT Discharge Plan Pt is currently most appropriate for rehab placement once medically stable. G -code Required No Eval Complexity Eval Charge Codes 95654 - High Complexity PHYSICIAN CERTIFICATION: I medhat
--- NOTE | 2021-12-20 15:05 | PC.NURSE ---
changed midline abd dressing. Packed 2 areas with 1/2 dry 4x4 gauze. No s/s of infection noted. Mild serosanguenous drainage noted to open areas. Sutures intact. Emptied ileostomy and colostomy bags. Stool soft and brown. Changed both appliances. Stripped both EILEEN drains. EILEEN drains will small amount ayala/brown drainage.
--- NOTE | 2021-12-20 15:56 | DIET.NUTRFU ---
RD spoke to nursing today, they have been providing clear liquids with cautions. Tolerating water and ice chips only. He has been NPO or water only x6 days d/t recent colon resection. Patient is receiving minimal calories from KCL/dextrose. If oral diet cannot be advanced, recommend TPN to prevent malnutrition. Will continue to follow with diet tolerance.
--- NOTE | 2021-12-20 16:27 | PC.NURSE ---
3L NC removed. O2 sat 91% on RA
--- NOTE | 2021-12-20 18:19 | PC.NURSE ---
O2 sat 89% on RA. Reapplied O2 but at a lower liter flow, 2L NC. O2 sat now 92% on 2L.
--- NOTE | 2021-12-20 18:43 | PC.NURSE ---
pt has done well t/o shift, worked with PT and got up in chair at bedside for around 3 hrs. midline dsg, colostomy and ileostomy changed. O2 2L via NC, O2 sat above 90%. alert X4. stokes in place with eric urine output. 20g iv in right hand with D5 0.45% NS at 125. 20g in R fa SL patent. ICPS on bilateral LOWER EXTREMITIES, TOLERATING WELL. 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 no questions or concerns at this time. call bonilla and personal items within reach
--- NOTE | 2021-12-20 23:02 | PC.NURSE ---
noted midline dressing was saturated in serisang drainage. removed both ileostomy and colostomy bag and midline dressing. left packing in place. placed gauze over midline and tegaderm. replaced ileostomy and colostomy bags. patient tolerated this okay. encouraged him to watch. did not tolerate moving up in bed or turning well, refused earlier in shift but finally agree to turn to the l side.
[2021-12-21] VITALS (12 sets, daily range): BP systolic 129–153; BP diastolic 77–94; PULSE 67–82; RESP 20–29; TEMP 36.5–37.7; O2SAT 3–96; BMI 32.8
--- NOTE | 2021-12-21 01:31 | PC.NURSE ---
offered to turn and reposition patient at this time. he is refusing at this time. educated multiple times in need to turn and move in prevention of bedsores and pneumonia. unable to get clear look at bottom and back because of patient refusal and poor tolerance to turn completely over.
--- NOTE | 2021-12-21 03:07 | PC.NURSE ---
Addendum entered by Josy Mota RN 12/21/21 05:39: 11mg of morphine used this shift via furniture duster Original Note: patient allowed nursing staff to give him a bath and turn him over in bed. assessed back side no signs of breakdown at this time. patient was washed off while turned over and linens changed. noted some seri sang drainage to midline incision dressing. small amount of stool in ileostomy and colostomy. noted swelling in scrotum. urine is dark in catheter bag. scuds removed from legs and replaced with new after bath. new socks provided. oral care provided for patient and assisted with sips of water. gown changed and catheter care provided. turned patient to r side. be drain number one had 5ml and be drain 2 had 10ml. drainage is brown in color. bowel sounds remained hypoactive. continued education on ostomys and movement.
--- NOTE | 2021-12-21 07:16 | HMH.GSPN ---
Subjective Narrative: Patient without any new complaints. Started on judicious limited clear liquids. Progress Note: A&P (1) Postop check Status: Acute (2) Mass of colon Status: Acute (3) Abdominal pain Status: Acute (4) Dehisced intestinal anastomosis Status: Acute (5) Colitis Status: Acute (6) Constipation Status: Acute (7) History of depression Status: Acute (8) Hyperthyroidism Status: Acute (9) Hypokalemia Status: Acute (10) Atelectasis Status: Acute (11) Physical deconditioning Status: Acute (12) Postoperative ileus Status: Acute Assessment and Plan for All Diagnoses:: Continue wound care and antibiotics. Slowly advance diet. Physical therapy. Exam Vital signs and Labs for Last 24 Hours: Temp Pulse Resp BP Pulse Ox 98.5 F 76 28 H 130/81 93 L 12/21/21 04:00 12/21/21 06:00 12/21/21 06:00 12/21/21 06:00 12/21/21 06:00 I & O for Last 24 hours: Intake & Output 12/18/21 12/19/21 12/20/21 12/21/21 11:59 11:59 11:59 11:59 Intake Total 4847 / 4847 3689 / 3689 3067 / 3067 2667 / 2667 Output Total 2625 / 2625 1969 / 1969 2024 / 2024 2665 / 2665 Balance 2222 / 2222 1719 / 1719 1042 / 1042 / Weight 230 lb 9.6 oz 230 lb 12.8 oz 233 lb 8 oz 234 lb 3 oz - *Routine Abdominal Exam Present: soft Comments: Ileostomy with good output. EILEEN drain with feculent drainage
--- NOTE | 2021-12-21 08:50 | P.PN_ITS ---
Internal Medicine - PN: Subj *Date: 12/21/21 *Time: 08:50 Exam Vital signs and Labs for Last 24 Hours: Temp Pulse Resp BP Pulse Ox 98.1 F 73 26 H 134/79 94 L 12/21/21 08:00 12/21/21 08:00 12/21/21 08:00 12/21/21 08:00 12/21/21 08:00 I & O for Last 24 hours: Intake & Output 12/18/21 12/19/21 12/20/21 12/21/21 23:59 23:59 23:59 23:59 Intake Total 4554 / 4554 2662 / 2662 3315 / 3315 1325 / 1325 Output Total 2895 / 2895 2220 / 2220 2640 / 2640 550 / 550 Balance 1659 / 1659 442 / 442 675 / 675 775 / 775 Weight 104.598 kg 104.689 kg 105.914 kg 106.226 kg Assessment and Plan (1) Postop check Status: Acute Category: Medical Code(s): Z09 - Encounter for follow-up examination after completed treatment for conditions other than malignant neoplasm (2) Mass of colon Status: Acute Category: Medical Code(s): K63.89 - Other specified diseases of intestine (3) Abdominal pain Status: Acute Category: Medical Code(s): R10.9 - Unspecified abdominal pain (4) Dehisced intestinal anastomosis Status: Acute Category: Medical Code(s): K91.89 - Other postprocedural complications and disorders of digestive system; T81.32XA - Disruption of internal operation (surgical) wound, not elsewhere classified, initial encounter (5) Colitis Status: Acute Category: Medical Code(s): K52.9 - Noninfective gastroenter itis and colitis, unspecified (6) Constipation Status: Acute Category: Medical Code(s): K59.00 - Constipation, unspecified (7) History of depression Status: Acute Category: Medical Code(s): Z86.59 - Personal history of other mental and behavioral disorders (8) Hyperthyroidism Status: Acute Category: Medical Code(s): E05.90 - Thyrotoxicosis, unspecified without thyrotoxic crisis or storm (9) Hypokalemia Status: Acute Category: Medical Code(s): E87.6 - Hypokalemia (10) Atelectasis Status: Acute Category: Medical Code(s): J98.11 - Atelectasis (11) Physical deconditioning Status: Acute Category: Medical Code(s): R53.81 - Other malaise (12) Postoperative ileus Status: Acute Category: Medical Code(s): K91.89 - Other postprocedural complications and disorders of digestive system; K56.7 - Ileus, unspecified The patient's infection will respond to the chosen ABx?: Yes Is the patient receiving the right drug, dose, and route?: Yes Could a more targeted ABx be ordered?: No
--- NOTE | 2021-12-21 10:56 | HMH.ACPN2 ---
Internal Medicine - PN: Subj *Date: 12/21/21 *Time: 10:56 Interval history: FAMILY MEDICINE NOTE: He seems more alert this morning. He states that he spent extensive time out of bed yesterday. Physical therapy did work with him. Exam Vital signs and Labs for Last 24 Hours: Temp Pulse Resp BP Pulse Ox 98.1 F 73 26 H 134/79 3 L 12/21/21 08:00 12/21/21 08:00 12/21/21 08:00 12/21/21 08:00 12/21/21 08:00 I & O for Last 24 hours: Intake & Output 12/18/21 12/19/21 12/20/21 12/21/21 11:59 11:59 11:59 11:59 Intake Total 4847 / 4847 3689 / 3689 3067 / 3067 2667 / 2667 Output Total 2625 / 2625 1969 / 1969 2024 / 2024 2665 / 2665 Balance 2222 / 2222 1719 / 1719 1042 / 1042 Weight 230 lb 9.6 oz 230 lb 12.8 oz 233 lb 8 oz 234 lb 3 oz - Constitutional no acute distress - *Routine HEENT Exam Head: Present: normocephalic Eye: Present: EOMI, PERRL ENT: Present: mucous membranes moist - *Routine Neck Exam Present: supple. Absent: lymphadenopathy - *Routine Respiratory Exam Present: CTA bilaterally - *Routine Cardiovascular Exam Present: RRR - *Routine Abdominal Exam Present: soft, tenderness, ostomy - *Routine Extremities Exam Present: edema (Trace. Note weight.). Absent: cyanosis, clubbing - *Routine Skin Exam Present: intact (He is fairly dark complected.), warm. Absent: rash - *Routine Neurological Exam Present: alert, oriented X3. Absent: motor deficit Assessment and Plan (1) Postop check Status: Acute Category: Medical Code(s): Z09 - Encounter for follow-up examination after completed treatment for conditions other than malignant neoplasm (2) Mass of colon Status: Acute Category: Medical Code(s): K63.89 - Other specified diseases of intestine (3) Abdominal pain Status: Acute Category: Medical Code(s): R10.9 - Unspecified abdominal pain (4) Dehisced intestinal anastomosis Status: Acute Category: Medical Code(s): K91.89 - Other postprocedural complications and disorders of digestive system; T81.32XA - Disruption of internal operation (surgical) wound, not elsewhere classified, initial encounter (5) Colitis Status: Acute Category: Medical Code(s): K52.9 - Noninfective gastroenteritis and colitis, unspecified (6) Constipation Status: Acute Category: Medical Code(s): K59.00 - Constipation, unspecified (7) History of depression Status: Acute Category: Medical Code(s): Z86.59 - Personal history of other mental and behavioral disorders (8) Hyperthyroidism Status: Acute Category: Medical Code(s): E05.90 - Thyrotoxicosis, unspecified without thyrotoxic crisis or storm (9) Hypokalemia Status: Acute Category: Medical Code(s): E87.6 - Hypokalemia (10) Atelectasis Status: Acute Category: Medical Code(s): J98.11 - Atelectasis (11) Physical deconditioning Status: Acute Category: Medical Code(s): R53.81 - Other malaise (12) Postoperative ileus Status: Acute Category: Medical Code(s): K91.89 - Other postprocedural complications and disorders of digestive system; K56.7 - Ileus, unspecified - Assessment and plan all Dx Assessment and Plan for all problems:: Encourage out of bed and cooperation with physical therapy.
[2021-12-21 12:12] LABS: Magnesium 1.9 mg/dl (1.6-2.3)
--- NOTE | 2021-12-21 13:30 | DIET.NUTRFU ---
RD saw patient at lunch, tolerating clear liquids. RD reviewed and provided handout on diet with ieostomy bag, foods to avoid. Also reviewed some high calorie foods/supplements he could add in to catch up from being NPO/clear liquids for 7 days. Started boost clear to help meet needs until diet advanced. During discussion patient did not seem very interested in information, he plans to discharge with family that is a nurse and he feels like she will take care of it.
--- NOTE | 2021-12-21 18:27 | PC.NURSE ---
pt has rested most of shift, PT assisted pt up to chair for around 3hrs. diet to clear liquids, tolerating well. dsg cdi for ileostomy, colostomy, midline incision, be drain. abdomen still firm, round and distended. stokes with adequate eric colored urine. 15 ml output from both be drains. call bonilla and personal items within reach.
--- NOTE | 2021-12-21 18:34 | PC.NURSE ---
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
[2021-12-22] VITALS (12 sets, daily range): BP systolic 122–163; BP diastolic 82–101; PULSE 61–80; RESP 22–28; TEMP 36.7–37.8; O2SAT 90–96; BMI 32.7
--- NOTE | 2021-12-22 04:03 | PC.NURSE ---
Addendum entered by Josy Mota RN 12/22/21 04:15: ONLY 10ML TOTAL BETWEEN BOTH EILEEN DRAINS Original Note: PATIENT HAS RESTED OKAY THIS SHIFT. HAS ALLOWED Q2 TURNS IN BED. NOTED TO HAVE A LOT OF PAIN WITH MOVEMENT. CHANGED COLOSTOMY AND DRESSING EARLIER IN SHIFT. PACKED OPENINGS WITH GAUZE AND COVERED WITH GAUZE AND TEGADERM. NOTED SERISANG DRAINAGE TO THE SITE. ILEOSTOMY AND COLOSTOMY PRODUCING SOME STOOL. DRAINAGE IN EILEEN DRAIN REMAINS BROWN IN COLOR. DID HAVE SOME LIQUIDS THIS SHIFT. DID COMPLAIN OF A SMALL AMOUNT OF SHORTNESS OF BREATH WHEN ATTEMPTING TO LOWER HEAD OF BED. HAS USED 13MG OF MORPHINE THIS SHIFT. CHANGED OUT MORPHINE IN DUPLIGRAPH OPERATOR PUMP. REMAINS ON 2L. VITALS STABLE. LUNGS DIMINSHED IN BASES. BOWELS HYPOACTIVE.
--- NOTE | 2021-12-22 06:32 | HMH.GSPN ---
Subjective Narrative: Patient states he has had some nausea without vomiting. Taking some clears. Progress Note: A&P (1) Postop check Status: Acute (2) Mass of colon Status: Acute (3) Abdominal pain Status: Acute (4) Dehisced intestinal anastomosis Status: Acute (5) Colitis Status: Acute (6) Constipation Status: Acute (7) History of depression Status: Acute (8) Hyperthyroidism Status: Acute (9) Hypokalemia Status: Acute (10) Atelectasis Status: Acute (11) Physical deconditioning Status: Acute (12) Postoperative ileus Status: Acute Assessment and Plan for All Diagnoses:: Continue progressive care Exam Vital signs and Labs for Last 24 Hours: Temp Pulse Resp BP Pulse Ox 99.0 F 77 26 H 139/98 H 93 L 12/22/21 04:00 12/22/21 06:00 12/22/21 06:00 12/22/21 06:00 12/22/21 06:00 Laboratory Results - last 24 hr 12/21/21 11:42: Magnesium 1.9 I & O for Last 24 hours: Intake & Output 12/19/21 12/20/21 12/21/21 12/22/21 11:59 11:59 11:59 11:59 Intake Total 3689 / 3689 3067 / 3067 2667 / 2667 1353 / 1353 Output Total 1969 / 1969 2665 / 2665 4260 / 4260 Balance 1719 / 1719 1042 / 1042 2 / 2 -2907 / -2907 Weight 230 lb 12.8 oz 233 lb 8 oz 234 lb 3 oz 233 lb 11.2 oz - *Routine Abdominal Exam Present: soft, tenderness Comments: Ileostomy functional with good output.
--- NOTE | 2021-12-22 06:47 | PC.NURSE ---
Patient resting with eyes closed at this time. O2 sat >93% on 2L NC; shows no s/s of acute distress noted at this time; will continue to monitor.
[2021-12-22 07:05] LABS: Alanine Aminotransferase 31 U/L (12-78); Albumin Level 2.4 g/dl (3.5-5.0); Albumin/Globulin Ratio 0.7 (1.1-1.8); Alkaline Phosphatase 109 U/L (38-126); Anion Gap 6.8 mEq/L (5-15); Aspartate Amino Transferase 69 U/L (17-59); Blood Urea Nitrogen 20 mg/dl (9-20); Calcium 10.1 mg/dl (8.4-10.2); Carbon Dioxide 26 mmol/L (22.0-30.0); Chloride 106 mmol/L (98-107); Creatinine Clearance Estimated 160 mL/min (50-200); Estimated Glomerular Filt Rate 101 ml/min (>60); GFR (African American) 122 ML/MIN (>60); Globulin 3.3 g/dL (1.3-3.2); Glucose 109 mg/dl (74-100); Potassium 3.8 mmoL/L (3.5-5.1); Sodium 135 mmol/L (136-145); Total Protein,Serum 5.7 g/dl (6.3-8.2)
[2021-12-22 07:37] LABS: Basophils # 0.1 K/mm3 (0-0.2); Eosinophils # 0.1 K/mm3 (0.0-0.4); Eosinophils % 0.8 % (0.1-12.0); Hematocrit 39.1 % (42.0-52.0); Hemoglobin 12.6 g/dL (14.1-18.0); Lymphocytes # 1.7 K/mm3 (0.7-4.5); Lymphocytes % 13.4 % (10-50); Mean Corpuscular HGB Conc 32.3 g/dL (31.8-35.4); Mean Corpuscular Volume 96.1 fl (80-94); Mean Platelet Volume 8.6 fl (7.4-10.4); Monocytes # 1.1 K/mm3 (0.1-1.0); Monocytes % 8.8 % (1.7-9.3); Neutrophils # 9.4 K/mm3 (1.8-7.8); Neutrophils % 76.1 % (37.0-80.0); Platelet Count 280 K/mm3 (142-424); Red Blood Count 4.07 M/mm3 (4.60-6.20); White Blood Count 12.4 K/mm3 (4.8-10.8)
--- NOTE | 2021-12-22 08:54 | XR_ITS ---
FINAL REPORT CLINICAL HISTORY: atelectasis COMPARISON: 12/18/2021 FINDINGS: SINGLE-VIEW CHEST The heart size is normal. The mediastinum is normal. There are persistent bibasilar opacities, may represent atelectasis or pneumonia. There is no pneumothorax. IMPRESSION: Atelectasis versus pneumonia. Reviewed, Interpreted and Dictated by Arsenio Garcias III, MD Transcribed by Minal Loving Authenticated and [facility]
--- NOTE | 2021-12-22 09:07 | HMH.ACPN2 ---
Internal Medicine - PN: Subj *Date: 12/22/21 *Time: 09:07 Interval history: FAMILY MEDICINE NOTE: He seems fairly stable. He does complain of some shortness of breath. Chest x-ray will be repeated. Continue to encourage activity up in chair, assistance and walking. Incentive spirometry. Exam Vital signs and Labs for Last 24 Hours: Temp Pulse Resp BP Pulse Ox 99.0 F 77 26 H 139/98 H 93 L 12/22/21 04:00 12/22/21 06:00 12/22/21 06:00 12/22/21 06:00 12/22/21 06:00 Laboratory Results - last 24 hr 12/21/21 11:42: Magnesium 1.9 12/22/21 06:30: Sodium 135 L, Potassium 3.8, Chloride 106, Carbon Dioxide 26, Anion Gap 6.8, BUN 20, Creatinine 0.80, Estimated Creat Clear 160, Estimated GFR 101, Est GFR ( Amer) 122, Glucose 109 H, Calcium 10.1, Total Bilirubin 3.0 H, AST 69 H, ALT 31, Alkaline Phosphatase 109, Total Protein 5.7 L, Albumin 2.4 L, Globulin 3.3 H, Albumin/Globulin Ratio 0.7 L 12/22/21 06:30: WBC 12.4 H D, RBC 4.07 L, Hgb 12.6 L, Hct 39.1 L, MCV 96.1 H, MCH 31.0, MCHC 32.3, RDW 14.0, Plt Count 280, MPV 8.6, Neut % (Auto) 76.1, Lymph % (Auto) 13.4, [place] % (Auto) 8.8, Eos % (Auto) 0.8, Baso % (Auto) 1.0, Neut # (Auto) 9.4 H, Lymph # (Auto) 1.7, [place] # (Auto) 1.1 H, Eos # (Auto) 0.1, Baso # (Auto) 0.1 I & O for Last 24 hours: Intake & Output 12/19/21 12/20/21 12/21/21 12/22/21 11:59 11:59 11:59 11:59 Intake Total 3689 / 3689 3067 / 3067 2667 / 2667 1353 / 1353 Output Total 1969 / 1969 2665 / 2665 4260 / 4260 Balance 1719 / 1719 1042 / 1042 -2907 / -2907 Weight 230 lb 12.8 oz 233 lb 8 oz 234 lb 3 oz 233 lb 11.2 oz - Constitutional no acute distress - *Routine HEENT Exam Head: Present: normocephalic Eye: Present: EOMI, PERRL ENT: Present: mucous membranes moist - *Routine Neck Exam Present: supple. Absent: lymphadenopathy - *Routine Respiratory Exam Present: CTA bilaterally - *Routine Cardiovascular Exam Present: RRR - *Routine Abdominal Exam Present: soft, normoactive bowel sounds, tenderness, ostomy. Absent: distended - *Routine Extremities Exam Absent: cyanosis, clubbing, edema - *Routine Skin Exam Present: warm. Absent: rash - *Routine Neurological Exam Present: alert, oriented X3 Assessment and Plan (1) Postop check Status: Acute Category: Medical Code(s): Z09 - Encounter for follow-up examination after completed treatment for conditions other than malignant neoplasm (2) Mass of colon Status: Acute Category: Medical Code(s): K63.89 - Other specified diseases of intestine (3) Abdominal pain Status: Acute Category: Medical Code(s): R10.9 - Unspecified abdominal pain (4) Dehisced intestinal anastomosis Status: Acute Category: Medical Code(s): K91.89 - Other postprocedural complications and disorders of digestive system; T81.32XA - Disruption of internal operation (surgical) wound, not elsewhere classified, initial encounter (5) Colitis Status: Acute Category: Medical Code(s): K52.9 - Noninfective gastroenteritis and colitis, unspecified (6) Constipation Status: Acute Category: Medical Code(s): K59.00 - Constipation, unspecified (7) History of depression Status: Acute Category: Medical Code(s): Z86.59 - Personal history of other mental and behavioral disorders (8) Hyperthyroidism Status: Acute Category: Medical Code(s): E05.90 - Thyrotoxicosis, unspecified without thyrotoxic crisis or storm (9) Hypokalemia Status: Acute Category: Medical Code(s): E87.6 - Hypokalemia (10) Atelectasis Status: Acute Category: Medical Code(s): J98.11 - Atelectasis (11) Physical deconditioning Status: Acute Category: Medical Code(s): R53.81 - Other malaise (12) Postoperative ileus Status: Acute Category: Medical Code(s): K91.89 - Other postprocedural complications and disorders of digestive system; K56.7 - Ileus, unspecified - Assessment and plan all Dx Assessment and Plan for
--- NOTE | 2021-12-22 10:27 | PC.NURSE ---
Report given to Matthieu Hanks RN who assumes care of patient at this time.
--- NOTE | 2021-12-22 11:29 | DIET.NUTRFU ---
Continues on clear liquids, c/o nausea with poor po intake. Nursing reported he barely touched breakfast. He continues to be claorie/protein defict d/t diet and poor intake. He may benefit from TPN to get his strength back until ready for regular diet.
--- NOTE | 2021-12-22 18:25 | PC.NURSE ---
Pt has had periods of intermittent confusion this afternoon. He remains on 3L NC with O2 sats measuring > 90%. He had one episode of vomiting. Approx 50 mls of yellow emesis noted. Zofran administered w/pt reporting relief on reassessment. His stokes is to bedside draining dark urine, 400 mls out this shift. 6mls cleared from stick roller pump. Some brown liquid noted in ileostomy and colostomy. 2mls of brown liquid emptied from each be drain for total of 4mls. He did have a temp of 100.1 at noon. Temperature in room turned down and blanket removed from pt. Temp was 98.5 on reassessment. NSR on telemetry. +1 generalized edema noted. He is currently resting in bed with his eyes closed. Bed is locked and in the lowest position, call light within reach.
--- NOTE | 2021-12-22 21:22 | PC.NURSE ---
During 2100 rounds, pt was noted to be diaphoretic. Oral temp of 98.0. This RN offered to give pt a bath and change his dressings on abdomen. Pt refused saying No, I feel fine-you all have already changed this dressing 4 times today. We will do it later.
[2021-12-23] VITALS (14 sets, daily range): BP systolic 139–158; BP diastolic 81–93; PULSE 59–70; RESP 20–26; TEMP 36.3–37; O2SAT 92–96; BMI 32.6
--- NOTE | 2021-12-23 10:02 | HMH.GSPN ---
Subjective Narrative: Intermittent nausea continues. Small amount of emesis (x2) reported. Progress Note: A&P (1) Postop check Status: Acute (2) Mass of colon Status: Acute (3) Abdominal pain Status: Acute (4) Dehisced intestinal anastomosis Status: Acute (5) Colitis Status: Acute (6) Constipation Status: Acute (7) History of depression Status: Acute (8) Hyperthyroidism Status: Acute (9) Hypokalemia Status: Acute (10) Atelectasis Status: Acute (11) Physical deconditioning Status: Acute (12) Postoperative ileus Status: Acute Assessment and plan: Ileostomy output continues. No definitive sign of obstruction. Some nausea with small amount of emesis noted. Will very cautiously continue with limited clear liquids although NPO status may need to be reimplemented (may ultimately require repeat nasogastric decompression). Exam Vital signs and Labs for Last 24 Hours: Temp Pulse Resp BP Pulse Ox 98.1 F 60 25 H 140/90 96 12/23/21 08:00 12/23/21 06:00 12/23/21 06:00 12/23/21 06:00 12/23/21 06:00 Laboratory Results - last 24 hr 12/22/21 06:30: Cortisol 23.9 I & O for Last 24 hours: Intake & Output 12/20/21 12/21/21 12/22/21 12/23/21 11:59 11:59 11:59 11:59 Intake Total 3067 / 3067 2667 / 2667 1353 / 1353 3062 / 3062 Output Total 2024 / 2024 2665 / 2665 4260 / 4260 1814 / 1814 Balance 1042 / 1042 2 / 2 -2907 / -2907 1248 / 1248 Weight 233 lb 8 oz 234 lb 3 oz 233 lb 11.2 oz 233 lb 6.4 oz - Constitutional no acute distress - *Routine Respiratory Exam Absent: respiratory distress - *Routine Cardiovascular Exam Absent: tachycardia - *Routine Abdominal Exam Comments: Diverting ileostomy remains pink and viable. Output of liquid and air noted in bag. End colostomy (diverted) output continues.
--- NOTE | 2021-12-23 12:02 | HMH.ACPN2 ---
Internal Medicine - PN: Subj *Date: 12/23/21 *Time: 12:02 Interval history: FAMILY MEDICINE NOTE: It appears that he seems to be progressing in a satisfactory manner from the standpoint of surgical progress. He remains a motivational challenge. He still has his Segura and though this has been ordered DC'd today by surgery. We need to continue to encourage up in chair and movement. Exam Vital signs and Labs for Last 24 Hours: Temp Pulse Resp BP Pulse Ox 98.1 F 60 25 H 140/90 95 12/23/21 08:00 12/23/21 06:00 12/23/21 06:00 12/23/21 06:00 12/23/21 08:00 Laboratory Results - last 24 hr 12/22/21 06:30: Cortisol 23.9 I & O for Last 24 hours: Intake & Output 12/21/21 12/22/21 12/23/21 12/24/21 11:59 11:59 11:59 11:59 Intake Total 2667 / 2667 1353 / 1353 3062 / 3062 Output Total 2665 / 2665 4260 / 4260 2464 / 2464 Balance 2 / 2 -2907 / -2907 598 / 598 Weight 234 lb 3 oz 233 lb 11.2 oz 233 lb 6.4 oz - Constitutional no acute distress - *Routine HEENT Exam Head: Present: normocephalic Eye: Present: EOMI, PERRL ENT: Present: mucous membranes moist - *Routine Neck Exam Present: supple. Absent: lymphadenopathy - *Routine Respiratory Exam Present: CTA bilaterally - *Routine Cardiovascular Exam Present: RRR - *Routine Abdominal Exam Present: normoactive bowel sounds, ostomy (Functioning ostomies) - *Routine Extremities Exam Absent: cyanosis, clubbing, edema Assessment and Plan (1) Postop check Status: Acute Category: Medical Code(s): Z09 - Encounter for follow-up examination after completed treatment for conditions other than malignant neoplasm (2) Mass of colon Status: Acute Category: Medical Code(s): K63.89 - Other specified diseases of intestine (3) Abdominal pain Status: Acute Category: Medical Code(s): R10.9 - Unspecified abdominal pain (4) Dehisced intestinal anastomosis Status: Acute Category: Medical Code(s): K91.89 - Other postprocedural complications and disorders of digestive system; T81.32XA - Disruption of internal operation (surgical) wound, not elsewhere classified, initial encounter (5) Colitis Status: Acute Category: Medical Code(s): K52.9 - Noninfective gastroenteritis and colitis, unspecified (6) Constipation Status: Acute Category: Medical Code(s): K59.00 - Constipation, unspecified (7) History of depression Status: Acute Category: Medical Code(s): Z86.59 - Personal history of other mental and behavioral disorders (8) Hyperthyroidism Status: Acute Category: Medical Code(s): E05.90 - Thyrotoxicosis, unspecified without thyrotoxic crisis or storm (9) Hypokalemia Status: Acute Category: Medical Code(s): E87.6 - Hypokalemia (10) Atelectasis Status: Acute Category: Medical Code(s): J98.11 - Atelectasis (11) Physical deconditioning Status: Acute Category: Medical Code(s): R53.81 - Other malaise (12) Postoperative ileus Status: Acute Category: Medical Code(s): K91.89 - Other postprocedural complications and disorders of digestive system; K56.7 - Ileus, unspecified - Assessment and plan all Dx Assessment and Plan for all problems:: Continue present regimen.
--- NOTE | 2021-12-23 15:58 | PC.NURSE ---
Patient is alert and oriented to person and place, cannot state day or time, has been compliant with care today, up to chair with assist x3, FC removed this shift, midline abdominal incision and colostomy and ileostomy dsgs changed this shift, pt tolerated well, using morphine BSA/AML COMPLIANCE OFFICER for pain control, has remained afebrile, abd tender with active bowel sounds in all quads, 20ml output from each EILEEN drain, HR reg, generalized 1+ peripheral edema noted, peripheral pulses intact, denies any cp or SOA, call light in reach, patient currently up to chair.
[2021-12-24] VITALS (12 sets, daily range): BP systolic 138–174; BP diastolic 88–99; PULSE 60–78; RESP 20–26; TEMP 36.3–37.3; O2SAT 91–95; BMI 33.1
--- NOTE | 2021-12-24 06:09 | PC.NURSE ---
Pt has slept at intervals this shift. Turned Q2 hr. Blisters noted to coccyx. Pt has had some pain this shift. Has been encouraged to use PROCESS PUMPER morphine as needed for pain. Education on PROCESS PUMPER provided. Midline DSG to Abdomen remains intact. Also colostomy and ileostomy noted. EILEEN drains x2 in place with brown drainage noted. 15 ml and 10 ml total for shift. Pt has been continent of urine. Has used urinal with assistance. Pt has c/o soa at times. He is currently on 2L O2 NC. No additional complaints stated.
--- NOTE | 2021-12-24 07:25 | PC.NURSE ---
8mg morphine cleared from BOX CAR LOADER pump
--- NOTE | 2021-12-24 09:09 | HMH.GSPN ---
Subjective Narrative: The patient is currently sitting in a chair. Per nursing, he is intermittently confused. He states that he did have an episode of emesis today; however, nursing informs that this was yesterday and that he is getting his days mixed up . Seemingly he has tolerated clear liquids over the past 24 hours. Progress Note: A&P (1) Postop check Status: Acute (2) Mass of colon Status: Acute (3) Abdominal pain Status: Acute (4) Dehisced intestinal anastomosis Status: Acute (5) Colitis Status: Acute (6) Constipation Status: Acute (7) History of depression Status: Acute (8) Hyperthyroidism Status: Acute (9) Hypokalemia Status: Acute (10) Atelectasis Status: Acute (11) Physical deconditioning Status: Acute Assessment and plan: Continue physical therapy (12) Postoperative ileus Status: Acute Assessment and plan: Prolonged ileus with intermittent nausea and episodic emesis. Per nursing he has not had emesis and a little over 24 hours . Remain on clear liquids with breeze supplementation for now Exam Vital signs and Labs for Last 24 Hours: Temp Pulse Resp BP Pulse Ox 99.2 F 69 24 142/88 H 95 12/24/21 04:00 12/24/21 06:00 12/24/21 06:00 12/24/21 06:00 12/24/21 06:00 I & O for Last 24 hours: Intake & Output 12/21/21 12/22/21 12/23/21 12/24/21 11:59 11:59 11:59 11:59 Intake Total 2667 / 2667 1353 / 1353 3062 / 3062 3722 / 3722 Output Total 2665 / 2665 4260 / 4260 2464 / 2464 2034 / 2034 Balance 2 / 2 -2907 / -2907 598 / 598 1687 / 1687 Weight 234 lb 3 oz 233 lb 11.2 oz 233 lb 6.4 oz 236 lb 11.2 oz - Constitutional no acute distress - *Routine Respiratory Exam Absent: respiratory distress - *Routine Cardiovascular Exam Absent: tachycardia - *Routine Abdominal Exam Comments: Unchanged
--- NOTE | 2021-12-24 13:43 | HMH.ACPN2 ---
Internal Medicine - PN: Subj *Date: 12/24/21 *Time: 13:43 Interval history: FAMILY MEDICINE NOTE: Today I find him sitting up in a chair. His Segura catheter has been removed. His oxygen saturations are above 90. There seems to be some progress. Exam Vital signs and Labs for Last 24 Hours: Temp Pulse Resp BP Pulse Ox 97.6 F 72 24 150/91 H 93 L 12/24/21 12:00 12/24/21 12:00 12/24/21 12:00 12/24/21 12:00 12/24/21 12:00 I & O for Last 24 hours: Intake & Output 12/22/21 12/23/21 12/24/21 12/25/21 11:59 11:59 11:59 11:59 Intake Total 1353 / 1353 3062 / 3062 3722 / 3722 Output Total 4260 / 4260 2464 / 2464 2435 / 2435 Balance -2907 / -2907 598 / 598 1287 / 1287 Weight 233 lb 11.2 oz 233 lb 6.4 oz 236 lb 11.2 oz - Constitutional no acute distress - *Routine HEENT Exam Head: Present: normocephalic Eye: Present: EOMI, PERRL ENT: Present: mucous membranes moist - *Routine Neck Exam Present: supple. Absent: lymphadenopathy - *Routine Respiratory Exam Present: CTA bilaterally - *Routine Cardiovascular Exam Present: RRR - *Routine Abdominal Exam Present: tenderness, ostomy. Absent: distended - *Routine Extremities Exam Absent: cyanosis, clubbing, edema - *Routine Skin Exam Present: warm. Absent: rash - *Routine Neurological Exam Present: alert, oriented X3 Assessment and Plan (1) Postop check Status: Acute Category: Medical Code(s): Z09 - Encounter for follow-up examination after completed treatment for conditions other than malignant neoplasm (2) Mass of colon Status: Acute Category: Medical Code(s): K63.89 - Other specified diseases of intestine (3) Abdominal pain Status: Acute Category: Medical Code(s): R10.9 - Unspecified abdominal pain (4) Dehisced intestinal anastomosis Status: Acute Category: Medical Code(s): K91.89 - Other postprocedural complications and disorders of digestive system; T81.32XA - Disruption of internal operation (surgical) wound, not elsewhere classified, initial encounter (5) Colitis Status: Acute Category: Medical Code(s): K52.9 - Noninfective gastroenteritis and colitis, unspecified (6) Constipation Status: Acute Category: Medical Code(s): K59.00 - Constipation, unspecified (7) History of depression Status: Acute Category: Medical Code(s): Z86.59 - Personal history of other mental and behavioral disorders (8) Hyperthyroidism Status: Acute Category: Medical Code(s): E05.90 - Thyrotoxicosis, unspecified without thyrotoxic crisis or storm (9) Hypokalemia Status: Acute Category: Medical Code(s): E87.6 - Hypokalemia (10) Atelectasis Status: Acute Category: Medical Code(s): J98.11 - Atelectasis (11) Physical deconditioning Status: Acute Category: Medical Code(s): R53.81 - Other malaise (12) Postoperative ileus Status: Acute Category: Medical Code(s): K91.89 - Other postprocedural complications and disorders of digestive system; K56.7 - Ileus, unspecified - Assessment and plan all Dx Assessment and Plan for all problems:: Continue present regimen. Continue to encourage activity. He seems to be improving. He wants to go home as opposed to being in a rehabilitation setting.
--- NOTE | 2021-12-24 16:56 | PC.NURSE ---
Patient has been alert to person and place this shift but confused about time and day. Has been compliant with all care. Sat up in chair for several hours this shift and tolerated well, perrla, HR reg, 1+ generalized edema noted, lung sounds diminished t/o, remains on 2LNC, abd firm and tender with active bowel sounds in all quads, colostomy and ileostomy in place, midline abd incision with dsg intact, EILEEN drains in place, 15ml and 10ml emptied from each today, abd dsg and ostomy appliances changed, voids per urinal without difficuly, urine yellow and clear, peripheral pulses intact, morphine phlebotomy instructor in use, has required 15mg of morphine this shift, currently denies any cp or soa, vss, call light in reach with bed in lowest position.
--- NOTE | 2021-12-24 18:22 | PC.WOUNDNOTE ---
Right side abdomen stoma stoma, left side of abdomen, EILEEN drain sites
[2021-12-25] VITALS (10 sets, daily range): BP systolic 150–179; BP diastolic 87–106; PULSE 60–73; RESP 18–24; TEMP 36.4–37; O2SAT 92–97; BMI 31.8
--- NOTE | 2021-12-25 06:11 | PC.NURSE ---
Patient alert to self and situation throughout shift. However patient believed it was day time all throughout nightshift. Patient has been prompted to turn q2hrs with compliance. Patient remains on 2l nc sating above 90%. ABD is tender and firm active bowl sounds noted. Midline dressing is CDI. Colostomy and ileostomy in place- stomas beefy red. Be drains inplace, brown drainage noted 20ml in each be this shift. 16.9 mg of morphine cleared from engine emission technician at this time.
[2021-12-25 06:25] LABS: Basophils # 0.1 K/mm3 (0-0.2); Basophils % 0.6 % (0.1-2.0); Eosinophils # 0.1 K/mm3 (0.0-0.4); Eosinophils % 0.3 % (0.1-12.0); Hemoglobin 13.7 g/dL (14.1-18.0); Lymphocytes # 1.1 K/mm3 (0.7-4.5); Lymphocytes % 4.9 % (10-50); Mean Corpuscular HGB Conc 31.9 g/dL (31.8-35.4); Mean Corpuscular Hemoglobin 30.2 pg (27.0-31.2); Mean Corpuscular Volume 94.8 fl (80-94); Mean Platelet Volume 9.5 fl (7.4-10.4); Monocytes # 1.4 K/mm3 (0.1-1.0); Neutrophils # 20.1 K/mm3 (1.8-7.8); Neutrophils % 88.3 % (37.0-80.0); Platelet Count 349 K/mm3 (142-424); Red Blood Count 4.53 M/mm3 (4.60-6.20); Red Cell Distribution Width 14.1 % (11.5-17.5); White Blood Count 22.7 K/mm3 (4.8-10.8)
[2021-12-25 06:27] LABS: MANUAL DIFFERENTIAL MANUAL DIFFERENTIAL (MANUAL DIFF)
--- NOTE | 2021-12-25 06:45 | CT_ITS ---
FINAL REPORT TECHNIQUE: After the administration of intravenous contrast, axial images were obtained through the abdomen and pelvis by computed tomography. The study was performed with techniques to keep radiation dose as low as reasonably achievable, (ALARA). Individual dose reduction techniques using automated exposure control or adjustment of mA and/or kV according to the patient's size were employed. CLINICAL HISTORY: HISTORY OF PERITONITIS, POSS ABSCESS COMPARISON: November 30, 2021 FINDINGS: There is bibasilar consolidation with small to moderate pleural effusions. There is diffuse fatty infiltration of the liver. The gallbladder is distended. There is bilateral adrenal hyperplasia. There is extensive edema throughout the mesentery. There is abnormal fluid in the pericolic gutters particularly laterally on the left. A left-sided fluid collection measures up to 11.3 cm in craniocaudal dimensions. There is fluid surrounding the spleen. There is a fluid collection inferior to the liver measuring 11.0 x 6.0 cm in craniocaudal and transverse dimensions. There is a benign-appearing cyst arising from the lower pole the right kidney measuring 6.9 cm. There are ostomies in the right and left anterior pelvic wall. Surgical drains are seen in the floor of the pelvis. IMPRESSION: Interval surgical creation of anterior pelvic wall ostomies. Extensive stranding throughout the mesentery with fluid collections bilaterally, largest collection is inferior to the right lobe of the liver. It is unclear if these are postoperative or developing abscesses. Fluid sampling may be of value. Reviewed, Interpreted and Dictated by Azar Zavaleta MD Transcribed by Ayo Godoy Authenticated and [facility]
[2021-12-25 06:48] LABS: Alanine Aminotransferase 49 U/L (12-78); Albumin Level 2.5 g/dl (3.5-5.0); Albumin/Globulin Ratio 0.7 (1.1-1.8); Alkaline Phosphatase 137 U/L (38-126); Anion Gap 11.8 mEq/L (5-15); Aspartate Amino Transferase 98 U/L (17-59); Bilirubin,Total 2.8 mg/dl (0.2-1.3); Blood Urea Nitrogen 10 mg/dl (9-20); Calcium 10.2 mg/dl (8.4-10.2); Carbon Dioxide 20 mmol/L (22.0-30.0); Chloride 101 mmol/L (98-107); Creatinine Clearance Estimated 208 mL/min (50-200); Estimated Glomerular Filt Rate 141 ml/min (>60); GFR (African American) 171 ML/MIN (>60); Globulin 3.7 g/dL (1.3-3.2); Glucose 139 mg/dl (74-100); Potassium 5.8 mmoL/L (3.5-5.1); Sodium 127 mmol/L (136-145); Total Protein,Serum 6.2 g/dl (6.3-8.2)
--- NOTE | 2021-12-25 06:52 | HMH.GSPN ---
Subjective Narrative: Patient complains of back pain. This has began overnight. No complaints regarding abdominal pain at this time. Progress Note: A&P (1) Postop check Status: Acute (2) Mass of colon Status: Acute (3) Abdominal pain Status: Acute (4) Dehisced intestinal anastomosis Status: Acute (5) Colitis Status: Acute (6) Constipation Status: Acute (7) History of depression Status: Acute (8) Hyperthyroidism Status: Acute (9) Hypokalemia Status: Acute (10) Atelectasis Status: Acute (11) Physical deconditioning Status: Acute (12) Postoperative ileus Status: Acute Assessment and Plan for All Diagnoses:: Appreciable leukocytosis on lab work today. No fevers. Patient has always had very high likelihood of development of intra-abdominal abscess. I have tentatively planned for CT scan approximately 9 or 10 days postoperative from his last operation. Given the increase in leukocytosis I will go ahead and proceed with this. It is possible the back pain is from intra-abdominal abscess. If he does have likely intra-abdominal abscess hopefully this is amenable to interventional radiology drainage. Exam Vital signs and Labs for Last 24 Hours: Temp Pulse Resp BP Pulse Ox 98.6 F 67 24 151/95 H 94 L 12/25/21 06:00 12/25/21 06:00 12/25/21 06:00 12/25/21 06:00 12/25/21 06:00 Laboratory Results - last 24 hr 12/25/21 06:13: WBC 22.7 H* D, RBC 4.53 L, Hgb 13.7 L, Hct 43.0, MCV 94.8 H, MCH 30.2, MCHC 31.9, RDW 14.1, Plt Count 349, MPV 9.5, Neut % (Auto) 88.3 H, Lymph % (Auto) 4.9 L, [place] % (Auto) 6.0, Eos % (Auto) 0.3, Baso % (Auto) 0.6, Neut # (Auto) 20.1 H, Lymph # (Auto) 1.1, [place] # (Auto) 1.4 H, Eos # (Auto) 0.1, Baso # (Auto) 0.1 12/25/21 06:13: Sodium 127 L, Potassium 5.8 H D, Chloride 101, Carbon Dioxide 20 L, Anion Gap 11.8, BUN 10 D, Creatinine 0.60 L D, Estimated Creat Clear 208, Estimated GFR 141, Est GFR ( Amer) 171 D, Glucose 139 H, Calcium 10.2, Total Bilirubin 2.8 H, AST 98 H D, ALT 49 D, Alkaline Phosphatase 137 H, Total Protein 6.2 L, Albumin 2.5 L, Globulin 3.7 H, Albumin/Globulin Ratio 0.7 L I & O for Last 24 hours: Intake & Output 12/22/21 12/23/21 12/24/21 12/25/21 11:59 11:59 11:59 11:59 Intake Total 1353 / 1353 3062 / 3062 3722 / 3722 3268 / 3268 Output Total 4260 / 4260 2464 / 2464 2435 / 2435 2370 / 2370 Balance -2907 / -2907 598 / 598 1287 / 1287 898 / 898 Weight 233 lb 11.2 oz 233 lb 6.4 oz 236 lb 11.2 oz 227 lb 12.8 oz - *Routine Abdominal Exam Present: soft, ostomy
[2021-12-25 06:55] LABS: Eosinophils % 1 % (0-3); Lymphocytes % 6 % (10-50); Monocytes % 7 % (2-9); Neutrophils % 86 % (42-76); Total Cells Counted 100
[2021-12-25 06:56] LABS: Anisocytosis 1+; Burr Cells 1+; Macrocytosis 1+; Ovalocytes 1+; Platelet Estimate Normal; Poikilocytosis 1+
--- NOTE | 2021-12-25 10:55 | HMH.ACPN2 ---
Internal Medicine - PN: Subj *Date: 12/25/21 *Time: 10:55 Interval history: FAMILY MEDICINE NOTE: He says he is not feeling well. He states that yesterday was a long day. He complains of pain in the left upper quadrant and radiating into the back. He says he is somewhat short of breath. He is scheduled to have a CT scan to check and make sure that an abscess has not developed. See Dr. Marshall's note. His white count elevation is noted. Exam Vital signs and Labs for Last 24 Hours: Temp Pulse Resp BP Pulse Ox 97.5 F L 62 20 179/89 H 94 L 12/25/21 08:00 12/25/21 10:00 12/25/21 10:00 12/25/21 10:00 12/25/21 10:00 Laboratory Results - last 24 hr 12/25/21 06:13: WBC 22.7 H* D, RBC 4.53 L, Hgb 13.7 L, Hct 43.0, MCV 94.8 H, MCH 30.2, MCHC 31.9, RDW 14.1, Plt Count 349, MPV 9.5, Neut % (Auto) 88.3 H, Lymph % (Auto) 4.9 L, [place] % (Auto) 6.0, Eos % (Auto) 0.3, Baso % (Auto) 0.6, Neut # (Auto) 20.1 H, Lymph # (Auto) 1.1, [place] # (Auto) 1.4 H, Eos # (Auto) 0.1, Baso # (Auto) 0.1, Total Counted 100, Neutrophils % (Manual) 86 H, Lymphocytes % (Manual) 6 L, Monocytes % (Manual) 7, Eosinophils % (Manual) 1, Platelet Estimate Normal, Poikilocytosis 1+, Anisocytosis 1+, Macrocytosis 1+, Ovalocytes 1+, [place] Cells 1+ 12/25/21 06:13: Sodium 127 L, Potassium 5.8 H D, Chloride 101, Carbon Dioxide 20 L, Anion Gap 11.8, BUN 10 D, Creatinine 0.60 L D, Estimated Creat Clear 208, Estimated GFR 141, Est GFR ( Amer) 171 D, Glucose 139 H, Calcium 10.2, Total Bilirubin 2.8 H, AST 98 H D, ALT 49 D, Alkaline Phosphatase 137 H, Total Protein 6.2 L, Albumin 2.5 L, Globulin 3.7 H, Albumin/Globulin Ratio 0.7 L I & O for Last 24 hours: Intake & Output 12/22/21 12/23/21 12/24/21 12/25/21 11:59 11:59 11:59 11:59 Intake Total 1353 / 1353 3062 / 3062 3722 / 3722 3268 / 3268 Output Total 4260 / 4260 2464 / 2464 2435 / 2435 2420 / 2420 Balance -2907 / -2907 598 / 598 1287 / 1287 848 / 848 Weight 233 lb 11.2 oz 233 lb 6.4 oz 236 lb 11.2 oz 227 lb 12.8 oz - Constitutional mild distress - *Routine HEENT Exam Head: Present: normocephalic Eye: Present: EOMI, PERRL ENT: Present: mucous membranes moist - *Routine Neck Exam Present: supple. Absent: lymphadenopathy - *Routine Respiratory Exam Present: CTA bilaterally (Some tachypnea). Absent: respiratory distress - *Routine Cardiovascular Exam Present: RRR, bradycardia - *Routine Abdominal Exam Present: tenderness. Absent: normoactive bowel sounds - *Routine Extremities Exam Absent: cyanosis, clubbing, edema - *Routine Skin Exam Present: warm. Absent: rash - *Routine Neurological Exam Present: alert, oriented X3 Assessment and Plan (1) Postop check Status: Acute Category: Medical Code(s): Z09 - Encounter for follow-up examination after completed treatment for conditions other than malignant neoplasm (2) Mass of colon Status: Acute Category: Medical Code(s): K63.89 - Other specified diseases of intestine (3) Abdominal pain Status: Acute Category: Medical Code(s): R10.9 - Unspecified abdominal pain (4) Dehisced intestinal anastomosis Status: Acute Category: Medical Code(s): K91.89 - Other postprocedural complications and disorders of digestive system; T81.32XA - Disruption of internal operation (surgical) wound, not elsewhere classified, initial encounter (5) Colitis Status: Acute Category: Medical Code(s): K52.9 - Noninfective gastroenteritis and colitis, unspecified (6) Constipation Status: Acute Category: Medical Code(s): K59.00 - Constipation, unspecified (7) History of depression Status: Acute Category: Medical Code(s): Z86.59 - Personal history of other mental and behavioral disorders (8) Hyperthyroidism Status: Acute Category: Medical Code(s): E05.90 - Thyrotoxicosis, unspecified without thyrotoxic crisis or storm (9) Hypokalemia Status: Acute Category: Medical Code(s): E87.6 - Hypokalemia (1
--- NOTE | 2021-12-25 10:56 | ECG_ITS ---
APPROVED REPORT Exam: Resting ECG HR:62 bpm ECG Measurements Heart Rate 62 AXES [place] 155 P 20 QRSd 110 QRS -7 QT 388 T 16 QTc 394 Conclusion SINUS RHYTHM WITH Isolated PAC noted NONSPECIFIC T-WAVE ABNORMALITY BORDERLINE ECG UNCONFIRMED REPORT Electronically signed by : Robert Reddy MD 12/25/2021 13:56:13
--- NOTE | 2021-12-25 15:20 | DIET.NUTRFU ---
RD reviewed meal intake and weights, patient is down 5# in 3 days. He is currently NPO, was on clear liquids but had been eating very little. Boost clear was started for extra calories and protein. Currently c/o of back pain, provider ordered tests to determine if abscess is present. patient will continue to be at high risk for malnutrition until diet can be advanced and better met his needs.
--- NOTE | 2021-12-25 16:35 | HMH.GSPN ---
Subjective Narrative: Patient states that his back pain is somewhat improved. He describes his breathing as so-so . No new abdominal complaints. Progress Note: A&P (1) Postop check Status: Acute (2) Mass of colon Status: Acute (3) Abdominal pain Status: Acute (4) Dehisced intestinal anastomosis Status: Acute (5) Colitis Status: Acute (6) Constipation Status: Acute (7) History of depression Status: Acute (8) Hyperthyroidism Status: Acute (9) Hypokalemia Status: Acute (10) Atelectasis Status: Acute (11) Physical deconditioning Status: Acute (12) Postoperative ileus Status: Acute Assessment and Plan for All Diagnoses:: CT scan today revealed expected fluid in the abdomen. However, seems to be less significant than suspected with some fluid along the left paracolic gutter and the largest collection in the right subhepatic space measuring 11 x 6 cm. This is most assuredly feculent abscess. Given the timeframe and findings on CT scan I would not plan for a repeat laparotomy. I will plan for interventional radiology to place drains particularly in the right subhepatic space. I will plan to advance his diet. He has had some nausea immediately upon oral intake. Perhaps more palatable food would be better tolerated. Continue IV antibiotics of Invanz and Zosyn. Exam Vital signs and Labs for Last 24 Hours: Temp Pulse Resp BP Pulse Ox 97.6 F 71 20 152/87 H 92 L 12/25/21 12:00 12/25/21 14:00 12/25/21 14:00 12/25/21 14:00 12/25/21 14:00 Laboratory Results - last 24 hr 12/25/21 06:13: WBC 22.7 H* D, RBC 4.53 L, Hgb 13.7 L, Hct 43.0, MCV 94.8 H, MCH 30.2, MCHC 31.9, RDW 14.1, Plt Count 349, MPV 9.5, Neut % (Auto) 88.3 H, Lymph % (Auto) 4.9 L, [place] % (Auto) 6.0, Eos % (Auto) 0.3, Baso % (Auto) 0.6, Neut # (Auto) 20.1 H, Lymph # (Auto) 1.1, [place] # (Auto) 1.4 H, Eos # (Auto) 0.1, Baso # (Auto) 0.1, Total Counted 100, Neutrophils % (Manual) 86 H, Lymphocytes % (Manual) 6 L, Monocytes % (Manual) 7, Eosinophils % (Manual) 1, Platelet Estimate Normal, Poikilocytosis 1+, Anisocytosis 1+, Macrocytosis 1+, Ovalocytes 1+, [place] Cells 1+ 12/25/21 06:13: Sodium 127 L, Potassium 5.8 H D, Chloride 101, Carbon Dioxide 20 L, Anion Gap 11.8, BUN 10 D, Creatinine 0.60 L D, Estimated Creat Clear 208, Estimated GFR 141, Est GFR ( Amer) 171 D, Glucose 139 H, Calcium 10.2, Total Bilirubin 2.8 H, AST 98 H D, ALT 49 D, Alkaline Phosphatase 137 H, Total Protein 6.2 L, Albumin 2.5 L, Globulin 3.7 H, Albumin/Globulin Ratio 0.7 L I & O for Last 24 hours: Intake & Output 12/23/21 12/24/21 12/25/21 12/26/21 11:59 11:59 11:59 11:59 Intake Total 3062 / 3062 3722 / 3722 3268 / 3268 Output Total 2464 / 2464 2435 / 2435 2420 / 2420 Balance 598 / 598 1287 / 1287 848 / 848 Weight 233 lb 6.4 oz 236 lb 11.2 oz 227 lb 12.8 oz - Constitutional Comments: Patient somewhat somnolent likely from narcotic.
--- NOTE | 2021-12-25 16:54 | PC.NURSE ---
No acute changes noted this shift, alert to person and place but still confused as to day and time and often confuses day time and night time, perrla, HR reg, 1+ generalized edema noted, peripheral pulses intact, lung sounds diminished t/o, remains on 2LNC but often takes it off, abd is firm and tender, c/o back pain this am, active bowel sounds in all quads, colostomy and ileostomy appliance and midline abdominal incision dressing changed this shift, EILEEN drains x2 in place with 10 and 5cc drained from each, good output from colostomy, stoma beefy red, voids per urinal independently, SCDs in place, got up to chair for four hours this shift and tolerated well, morphine cda teacher discontinued per md order today, diet upgraded to bland for dinner, vss at this time, call light in reach with bed in lowest position.
--- NOTE | 2021-12-25 17:18 | PC.NURSE ---
Morphine DELICATESSEN SLICER discontinued this shift, patient required 17mg this shift. 26mg of morphine wasted witnessed by Jaylene Sethi RN.
[2021-12-26] VITALS (9 sets, daily range): BP systolic 132–175; BP diastolic 88–103; PULSE 75–98; RESP 18–37; TEMP 36.4–37.2; O2SAT 90–93; BMI 31.3
--- NOTE | 2021-12-26 04:58 | PC.NURSE ---
Pt has rested intermittently over night. Pt is alert and oriented x4. At the start of shift pt's ileostomy was leaking and abdominal dressing was changed. Pt tolerated dressing change fair. BP continues to be elevated. Bilateral breath sounds are diminished at the bases. Pt is tolerating room air well with sats 90-93%. Abdomen is still firm and tender. Bowel sounds in all 4 quads. He has been medicated per mar x4 for pain. During dressing change pt became nauseated and vomited. Medicated per mar for nausea x1. EILEEN drains x2 remain in place.
[2021-12-26 06:56] LABS: Basophils # 0.1 K/mm3 (0-0.2); Basophils % 0.5 % (0.1-2.0); Eosinophils % 0.2 % (0.1-12.0); Hematocrit 40.6 % (42.0-52.0); Lymphocytes # 1.5 K/mm3 (0.7-4.5); Lymphocytes % 6.6 % (10-50); Mean Corpuscular HGB Conc 31.9 g/dL (31.8-35.4); Mean Corpuscular Hemoglobin 30.1 pg (27.0-31.2); Mean Corpuscular Volume 94.4 fl (80-94); Mean Platelet Volume 9.9 fl (7.4-10.4); Monocytes # 1.6 K/mm3 (0.1-1.0); Monocytes % 7.3 % (1.7-9.3); Neutrophils # 19.1 K/mm3 (1.8-7.8); Neutrophils % 85.4 % (37.0-80.0); Platelet Count 431 K/mm3 (142-424); Red Cell Distribution Width 14.2 % (11.5-17.5); White Blood Count 22.3 K/mm3 (4.8-10.8)
[2021-12-26 06:57] LABS: MANUAL DIFFERENTIAL MANUAL DIFFERENTIAL (MANUAL DIFF)
[2021-12-26 07:01] LABS: Chloride 99 mmol/L (98-107)
[2021-12-26 07:02] LABS: Potassium 3.2 mmoL/L (3.5-5.1); Sodium 130 mmol/L (136-145)
[2021-12-26 07:05] LABS: Anion Gap 7.2 mEq/L (5-15); Blood Urea Nitrogen 9 mg/dl (9-20); Calcium 10.7 mg/dl (8.4-10.2); Carbon Dioxide 27 mmol/L (22.0-30.0); Creatinine Clearance Estimated 205 mL/min (50-200); Estimated Glomerular Filt Rate 141 ml/min (>60); GFR (African American) 171 ML/MIN (>60); Glucose 102 mg/dl (74-100)
[2021-12-26 07:25] LABS: Lymphocytes % 19 % (10-50); Monocytes % 3 % (2-9); Neutrophils % 78 % (42-76); Platelet Estimate Slight Increase; RBC Morphology Normal; Total Cells Counted 100
--- NOTE | 2021-12-26 08:06 | P.PN_ITS ---
Subjective Narrative: Patient without complaints. He has been tolerating bland diet vigorously. He did have an episode of nausea and vomiting. Progress Note: A&P (1) Postop check Status: Acute (2) Mass of colon Status: Acute (3) Abdominal pain Status: Acute (4) Dehisced intestinal anastomosis Status: Acute (5) Colitis Status: Acute (6) Constipation Status: Acute (7) History of depression Status: Acute (8) Hyperthyroidism Status: Acute (9) Hypokalemia Status: Acute (10) Atelectasis Status: Acute (11) Physical deconditioning Status: Acute (12) Postoperative ileus Status: Acute Assessment and Plan for All Diagnoses:: I will see if radiology can perform drainage particularly of the subhepatic abscess tomorrow due to persistent leukocytosis. Exam Vital signs and Labs for Last 24 Hours: Temp Pulse Resp BP Pulse Ox 98.9 F 80 20 165/103 H 92 L 12/26/21 03:14 12/26/21 04:00 12/26/21 03:14 12/26/21 03:14 12/26/21 03:14 Laboratory Results - last 24 hr 12/26/21 05:57: WBC 22.3 H*, RBC 4.30 L, Hgb 13.0 L, Hct 40.6 L, MCV 94.4 H, MCH 30.1, MCHC 31.9, RDW 14.2, Plt Count 431 H, MPV 9.9, Neut % (Auto) 85.4 H, Lymph % (Auto) 6.6 L, [place] % (Auto) 7.3, Eos % (Auto) 0.2, Baso % (Auto) 0.5, Neut # (Auto) 19.1 H, Lymph # (Auto) 1.5, [place] # (Auto) 1.6 H, Eos # (Auto) 0.0, Baso # (Auto) 0.1, Total Counted 100, Neutrophils % (Manual) 78 H, Lymphocytes % (Manual) 19, Monocytes % (Manual) 3, Platelet Estimate Slight increase, RBC Morphology Normal 12/26/21 05:57: Sodium 130 L, Potassium 3.2 L D, Chloride 99, Carbon Dioxide 27, Anion Gap 7.2, BUN 9, Creatinine 0.60 L, Estimated Creat Clear 205, Estimated GFR 141, Est GFR ( Amer) 171, Glucose 102 H D, Calcium 10.7 H I & O for Last 24 hours: Intake & Output 12/23/21 12/24/21 12/25/21 12/26/21 11:59 11:59 11:59 11:59 Intake Total 3062 / 3062 3722 / 3722 3268 / 3268 2816 / 2816 Output Total 2464 / 2464 2435 / 2435 2420 / 2420 2075 / 2075 Balance 598 / 598 1287 / 1287 848 / 848 741 / 741 Weight 233 lb 6.4 oz 236 lb 11.2 oz 227 lb 12.8 oz 224 lb - *Routine Abdominal Exam Present: soft, ostomy
--- NOTE | 2021-12-26 18:04 | PC.NURSE ---
pt done well this shift. some confusion t/o day to time. 20g in L AC SL patent, 20g R wrist LR @ 200. midline incision dsg changed, no redness/ purulent drainage, dsg cdi. colostomy and ileostomy changed. EILEEN drain output 20ml, light brown fluid. lung sounds clear t/o. pt has been on RA with sats around 93%, tolerating well with tachypnea noted. stage 1 on coccyx, pt has been turning and got up to chair for about 3 hrs with PT, assist X1. pt has had hair washed and face shaved, now resting in bed, call bonilla, personal items within reach. no questions or concerns at this time.
[2021-12-27] VITALS (8 sets, daily range): BP systolic 123–154; BP diastolic 73–98; PULSE 70–97; RESP 17–43; TEMP 36.6–37.4; O2SAT 90–97; BMI 30.2
--- NOTE | 2021-12-27 06:41 | PC.NURSE ---
pt rested some this shift, pt c/o of pain 3 times this shift relieved with prn pain medication, pt's vss, pt npo since midnightc bath given, and sheets changed for procedure this am, pt moving on own more but still very weak, pt using flutter valve in bed, pt has been on room air all shift, pt's appliances cdi and midline dressing cdi, emptied bag on stoma on right, putting out moderate brown liquid, bag on left didn't need to be emptied and putting out pasty soft stool, be's draining scant ayala fluid, pt using urinal to void with adequate UOP, family arrived at bedside this am
[2021-12-27 07:05] LABS: Basophils # 0.1 K/mm3 (0-0.2); Basophils % 0.4 % (0.1-2.0); Eosinophils # 0.1 K/mm3 (0.0-0.4); Eosinophils % 0.3 % (0.1-12.0); Hematocrit 39.7 % (42.0-52.0); Hemoglobin 12.3 g/dL (14.1-18.0); Lymphocytes % 8.3 % (10-50); Mean Corpuscular HGB Conc 30.9 g/dL (31.8-35.4); Mean Corpuscular Hemoglobin 30.2 pg (27.0-31.2); Mean Corpuscular Volume 97.8 fl (80-94); Mean Platelet Volume 9.4 fl (7.4-10.4); Monocytes # 1.3 K/mm3 (0.1-1.0); Monocytes % 5.5 % (1.7-9.3); Neutrophils # 20.7 K/mm3 (1.8-7.8); Neutrophils % 85.5 % (37.0-80.0); Platelet Count 588 K/mm3 (142-424); Red Blood Count 4.06 M/mm3 (4.60-6.20); Red Cell Distribution Width 14.2 % (11.5-17.5); White Blood Count 24.3 K/mm3 (4.8-10.8)
[2021-12-27 07:09] LABS: Chloride 99 mmol/L (98-107); Potassium 3.2 mmoL/L (3.5-5.1); Sodium 129 mmol/L (136-145)
[2021-12-27 07:11] LABS: MANUAL DIFFERENTIAL MANUAL DIFFERENTIAL (MANUAL DIFF)
[2021-12-27 07:12] LABS: Alanine Aminotransferase 34 U/L (12-78); Albumin Level 2.6 g/dl (3.5-5.0); Albumin/Globulin Ratio 0.7 (1.1-1.8); Alkaline Phosphatase 162 U/L (38-126); Anion Gap 7.2 mEq/L (5-15); Aspartate Amino Transferase 64 U/L (17-59); Bilirubin,Total 2.1 mg/dl (0.2-1.3); Blood Urea Nitrogen 12 mg/dl (9-20); Calcium 10.6 mg/dl (8.4-10.2); Carbon Dioxide 26 mmol/L (22.0-30.0); Creatinine Clearance Estimated 169 mL/min (50-200); Estimated Glomerular Filt Rate 118 ml/min (>60); GFR (African American) 143 ML/MIN (>60); Globulin 3.5 g/dL (1.3-3.2); Glucose 91 mg/dl (74-100); Total Protein,Serum 6.1 g/dl (6.3-8.2)
[2021-12-27 07:56] LABS: Lymphocytes % 7 % (10-50); Monocytes % 2 % (2-9); Neutrophils % 91 % (42-76); Platelet Estimate Marked Increase; RBC Morphology Normal; Total Cells Counted 100
--- NOTE | 2021-12-27 08:08 | CT_ITS ---
FINAL REPORT CLINICAL HISTORY: ABDOMINAL ABSCESS DRAINAGE TUBE PLACED FINDINGS: CT GUIDED DRAIN PLACEMENT HISTORY: Right upper quadrant fluid collection/abscess. ATTENDING PHYSICIAN: Dr. Burroughs PHYSICIAN MANAGER PRIVACY: Nicholas Carter PA-C PROCEDURE: After informed consent was obtained and a timeout was performed, the patient was prepped and draped in usual sterile fashion over the right upper quadrant. Utilizing local anesthesia and sterile technique with a catheter access needle, access to the fluid collection was obtained. An Amplatz wire was placed. Serial dilatation was performed. An 8 [place] pigtail catheter was placed looped in the fluid collection. Post drain placement films demonstrate the catheter in good position. The patient received no procedural sedation. The patient tolerated the procedure well and left the department in good condition. Sample of the purulent fluid was sent to lab for preoperative studies. IMPRESSION: Status post CT guided percutaneous drain placement without immediate complication. Films reviewed , interpreted and dictated by Dr. Burroughs. Transcribed by Nicholas Carter PA-C. Reviewed, Interpreted and Dictated by Glenn Burroughs MD Transcribed by TIMOTHY Casarez Authenticated and . [facility]
--- NOTE | 2021-12-27 08:10 | P.PN_ITS ---
Subjective Patient reports: no new complaints Progress Note: A&P (1) Postop check Status: Acute (2) Mass of colon Status: Acute (3) Abdominal pain Status: Acute (4) Dehisced intestinal anastomosis Status: Acute (5) Colitis Status: Acute (6) Constipation Status: Acute (7) History of depression Status: Acute (8) Hyperthyroidism Status: Acute (9) Hypokalemia Status: Acute (10) Atelectasis Status: Acute (11) Physical deconditioning Status: Acute (12) Postoperative ileus Status: Acute Assessment and plan: Essentially resolved. Likely resume diet after drain placement today. (13) Abdominal fluid collection Status: Acute Assessment and plan: Scheduled for IR drain placement today Exam Vital signs and Labs for Last 24 Hours: Temp Pulse Resp BP Pulse Ox 98.8 F 85 20 151/96 H 92 L 12/27/21 03:37 12/27/21 04:00 12/27/21 03:37 12/27/21 03:37 12/27/21 03:37 Laboratory Results - last 24 hr 12/27/21 06:35: WBC 24.3 H*, RBC 4.06 L, Hgb 12.3 L, Hct 39.7 L, MCV 97.8 H, MCH 30.2, MCHC 30.9 L, RDW 14.2, Plt Count 588 H D, MPV 9.4, Neut % (Auto) 85.5 H, Lymph % (Auto) 8.3 L, [place] % (Auto) 5.5, Eos % (Auto) 0.3, Baso % (Auto) 0.4, Neut # (Auto) 20.7 H, Lymph # (Auto) 2.0, [place] # (Auto) 1.3 H, Eos # (Auto) 0.1, Baso # (Auto) 0.1, Total Counted 100, Neutrophils % (Manual) 91 H, Lymphocytes % (Manual) 7 L, Monocytes % (Manual) 2, Platelet Estimate Marked increase, RBC Morphology Normal 12/27/21 06:35: Sodium 129 L, Potassium 3.2 L, Chloride 99, Carbon Dioxide 26, Anion Gap 7.2, BUN 12 D, Creatinine 0.70, Estimated Creat Clear 169, Estimated GFR 118, Est GFR ( Amer) 143, Glucose 91, Calcium 10.6 H, Total Bilirubin 2.1 H, AST 64 H D, ALT 34 D, Alkaline Phosphatase 162 H, Total Protein 6.1 L, Albumin 2.6 L, Globulin 3.5 H, Albumin/Globulin Ratio 0.7 L I & O for Last 24 hours: Intake & Output 12/24/21 12/25/21 12/26/21 12/27/21 11:59 11:59 11:59 11:59 Intake Total 3722 / 3722 3268 / 3268 2936 / 2936 2548 / 2548 Output Total 2435 / 2435 2420 / 2420 2075 / 2075 3195 / 3195 Balance 1287 / 1287 848 / 848 861 / 861 -647 / -647 Weight 236 lb 11.2 oz 227 lb 12.8 oz 224 lb 216 lb 7 oz - Constitutional no acute distress - *Routine Respiratory Exam Absent: respiratory distress - *Routine Cardiovascular Exam Absent: tachycardia - *Routine Abdominal Exam Present: tenderness
--- NOTE | 2021-12-27 14:09 | DIET.NUTRFU ---
Upon visit this afternoon he was sleeping and had not touched lunch, intake is poor but still tolerating bland diet better then clear or full liquids. Had a CT drain put in today d/t persistent leukocytosis. Will continue to monitor diet ordered and tolerance. Urine output good yesterday with multiple voids. Pt triggers for weight loss CBW is 98kg and admit wt was 107kg, wt loss is d/t lack of nutrition provided or tolerated with liquid diet. he will trigger for malnutrition, will notify child care associate teacher.
--- NOTE | 2021-12-27 14:52 | PC.NURSE ---
rounded on patient who was sleeping at this time. call light within reach. no family at bedside.
--- NOTE | 2021-12-27 17:22 | PC.NURSE ---
Pt went to radiology at the beginning of the shift to have a drain placed in an abscess in the ruq. pt has purulent appearing fluid collecting in drainage bag. pt had remained extremely sleepy and hasnt wanted to do much with staff. he will fall asleep mid question from staff. pt was willing to get up to the side of the bed with SRNA phuong and attempt to void (this was unsuccessful). nad noted. pt has 2 ostomies, 3 drains and 1 midline dressing. (dressing to be changed and packing replaced.
--- NOTE | 2021-12-27 20:40 | HMH.ACPN2 ---
Internal Medicine - PN: Subj *Date: 12/27/21 *Time: 20:40 Interval history: FAMILY MEDICINE CONSULT: I visited the patient briefly last night and again this afternoon. He remains mostly sedated. He underwent placement of RUQ drain per radilogy today to drain abcess collection. His BP' remain slightly elevated. I started 20mg lisinopril previously. He has not shown respiratory distress. Exam Vital signs and Labs for Last 24 Hours: Temp Pulse Resp BP Pulse Ox 97.8 F 86 17 152/80 H 97 12/27/21 17:31 12/27/21 17:31 12/27/21 17:31 12/27/21 17:31 12/27/21 17:31 Laboratory Results - last 24 hr 12/27/21 06:35: WBC 24.3 H*, RBC 4.06 L, Hgb 12.3 L, Hct 39.7 L, MCV 97.8 H, MCH 30.2, MCHC 30.9 L, RDW 14.2, Plt Count 588 H D, MPV 9.4, Neut % (Auto) 85.5 H, Lymph % (Auto) 8.3 L, [place] % (Auto) 5.5, Eos % (Auto) 0.3, Baso % (Auto) 0.4, Neut # (Auto) 20.7 H, Lymph # (Auto) 2.0, [place] # (Auto) 1.3 H, Eos # (Auto) 0.1, Baso # (Auto) 0.1, Total Counted 100, Neutrophils % (Manual) 91 H, Lymphocytes % (Manual) 7 L, Monocytes % (Manual) 2, Platelet Estimate Marked increase, RBC Morphology Normal 12/27/21 06:35: Sodium 129 L, Potassium 3.2 L, Chloride 99, Carbon Dioxide 26, Anion Gap 7.2, BUN 12 D, Creatinine 0.70, Estimated Creat Clear 169, Estimated GFR 118, Est GFR ( Amer) 143, Glucose 91, Calcium 10.6 H, Total Bilirubin 2.1 H, AST 64 H D, ALT 34 D, Alkaline Phosphatase 162 H, Total Protein 6.1 L, Albumin 2.6 L, Globulin 3.5 H, Albumin/Globulin Ratio 0.7 L I & O for Last 24 hours: Intake & Output 12/25/21 12/26/21 12/27/2112/28/22 11:59 11:59 11:59 11:59 Intake Total 3268 / 3268 2936 / 2936 2548 / 2548 1265 / 1265 Output Total 2420 / 2420 2075 / 2075 3195 / 3195 0 / 0 Balance 848 / 848 861 / 861 -647 / -647 1265 / 1265 Weight 227 lb 12.8 oz 224 lb 216 lb 7 oz Microbiology Reports for the Last 24 Hours: Microbiology 12/27/21 10:00 Abdomen Gram Stain - Final - Constitutional no acute distress, somnolent - *Routine Neck Exam Present: supple. Absent: lymphadenopathy - *Routine Respiratory Exam Absent: respiratory distress - *Routine Cardiovascular Exam Present: RRR - *Routine Abdominal Exam Present: tenderness, other (dressings and drains in place) - *Routine Extremities Exam Absent: cyanosis, clubbing, edema Assessment and Plan (1) Postop check Status: Acute Category: Medical Code(s): Z09 - Encounter for follow-up examination after completed treatment for conditions other than malignant neoplasm (2) Mass of colon Status: Acute Category: Medical Code(s): K63.89 - Other specified diseases of intestine (3) Abdominal pain Status: Acute Category: Medical Code(s): R10.9 - Unspecified abdominal pain (4) Dehisced intestinal anastomosis Status: Acute Category: Medical Code(s): K91.89 - Other postprocedural complications and disorders of digestive system; T81.32XA - Disruption of internal operation (surgical) wound, not elsewhere classified, initial encounter (5) Colitis Status: Acute Category: Medical Code(s): K52.9 - Noninfective gastroenteritis and colitis, unspecified (6) Constipation Status: Acute Category: Medical Code(s): K59.00 - Constipation, unspecified (7) History of depression Status: Acute Category: Medical Code(s): Z86.59 - Personal history of other mental and behavioral disorders (8) Hyperthyroidism Status: Acute Category: Medical Code(s): E05.90 - Thyrotoxicosis, unspecified without thyrotoxic crisis or storm (9) Hypokalemia Status: Acute Category: Medical Code(s): E87.6 - Hypokalemia (10) Atelectasis Status: Acute Category: Medical Code(s): J98.11 - Atelectasis (11) Physical deconditioning Status: Acute Category: Medical Code(s): R53.81 - Other malaise (12) Postoperative ileus Status: Acute Category: Medical Code(s): K91.89 - Other postprocedural complications and disorders of digestive
[2021-12-28] VITALS: BP 94/54; PULSE 74; PULSE 80; RESP 43; TEMP 36.8; O2SAT 93
--- NOTE | 2021-12-28 00:25 | PC.WOUNDNOTE ---
(R) side of buttocks
[2021-12-28 04:00] VITALS: BP 104/78; PULSE 78; PULSE 80; RESP 40; TEMP 38.1; O2SAT 91
[2021-12-28 05:00] VITALS: BMI 29.7
--- NOTE | 2021-12-28 05:35 | PC.NURSE ---
pt has rested well this shift. he has required prn medications for pain one time so far. midline dressing changed and 2 areas were packed wet to dry. He has used his urinal. pt had a bed bath and linen change this shift. stage 2 pressure ulcer noted on right buttock. dressing applied. reddened areas noted on right buttock/hip. (see previous notes this shift). heels floated off of mattress. pt turned every 2 hours this shift and kept comfortable. expiratory wheezing heard on auscultation. pt has been tachypneic t/o the night. he remains on room air. NSR on telemetry. BP remains stable. call light within reach. bed in low position.
[2021-12-28 06:12] LABS: Basophils # 0.1 K/mm3 (0-0.2); Basophils % 0.5 % (0.1-2.0); Eosinophils # 0.1 K/mm3 (0.0-0.4); Eosinophils % 0.5 % (0.1-12.0); Hemoglobin 11.7 g/dL (14.1-18.0); Lymphocytes % 8.2 % (10-50); Mean Corpuscular HGB Conc 30.7 g/dL (31.8-35.4); Mean Corpuscular Hemoglobin 30.2 pg (27.0-31.2); Mean Corpuscular Volume 98.5 fl (80-94); Mean Platelet Volume 9.3 fl (7.4-10.4); Monocytes # 1.6 K/mm3 (0.1-1.0); Monocytes % 6.7 % (1.7-9.3); Neutrophils # 20.1 K/mm3 (1.8-7.8); Neutrophils % 84.1 % (37.0-80.0); Platelet Count 664 K/mm3 (142-424); Red Blood Count 3.86 M/mm3 (4.60-6.20); Red Cell Distribution Width 14.2 % (11.5-17.5); White Blood Count 23.9 K/mm3 (4.8-10.8)
[2021-12-28 06:19] LABS: MANUAL DIFFERENTIAL MANUAL DIFFERENTIAL (MANUAL DIFF)
--- NOTE | 2021-12-28 06:42 | PC.NURSE ---
TOTAL OUTPUT THIS SHIFT: Ileostomy: 400ml dark drown liquid Colostomy: 100 ml sft brown stool EILEEN drain X2: 10 ml ayala thick liquid Uresil: 130 ml ayala thick liquid Urine: 750 ml, clear/eric. 3 unmeasured voids.
[2021-12-28 06:53] LABS: Chloride 101 mmol/L (98-107)
[2021-12-28 06:54] LABS: Albumin Level 2.3 g/dl (3.5-5.0); Potassium 4.6 mmoL/L (3.5-5.1); Sodium 130 mmol/L (136-145)
[2021-12-28 06:55] LABS: Alanine Aminotransferase 26 U/L (12-78); Blood Urea Nitrogen 18 mg/dl (9-20); Creatinine Clearance Estimated 194 mL/min (50-200); Estimated Glomerular Filt Rate 141 ml/min (>60); GFR (African American) 171 ML/MIN (>60)
[2021-12-28 06:56] LABS: Alkaline Phosphatase 142 U/L (38-126); Anion Gap 8.6 mEq/L (5-15); Aspartate Amino Transferase 68 U/L (17-59); Bilirubin,Total 1.6 mg/dl (0.2-1.3); Carbon Dioxide 25 mmol/L (22.0-30.0); Lymphocytes % 15 % (10-50); Monocytes % 7 % (2-9); Neutrophils % 78 % (42-76); Platelet Estimate Marked Increase; RBC Morphology Normal; Total Cells Counted 100
[2021-12-28 06:57] LABS: Albumin/Globulin Ratio 0.7 (1.1-1.8); Calcium 9.6 mg/dl (8.4-10.2); Globulin 3.2 g/dL (1.3-3.2); Glucose 58 mg/dl (74-100); Total Protein,Serum 5.5 g/dl (6.3-8.2)
--- NOTE | 2021-12-28 07:54 | HMH.GSPN ---
Subjective Narrative: Patient has no new complaints. He states that he is tired . He had drain placed yesterday by radiology. Progress Note: A&P (1) Postop check Status: Acute (2) Mass of colon Status: Acute (3) Abdominal pain Status: Acute (4) Dehisced intestinal anastomosis Status: Acute (5) Colitis Status: Acute (6) Constipation Status: Acute (7) History of depression Status: Acute (8) Hyperthyroidism Status: Acute (9) Hypokalemia Status: Acute (10) Atelectasis Status: Acute (11) Physical deconditioning Status: Acute (12) Postoperative ileus Status: Acute (13) Abdominal fluid collection Status: Acute Assessment and Plan for All Diagnoses:: Continue current care. Exam Vital signs and Labs for Last 24 Hours: Temp Pulse Resp BP Pulse Ox 100.5 F H 78 40 H 104/78 L 91 L 12/28/21 04:00 12/28/21 04:00 12/28/21 04:00 12/28/21 04:00 12/28/21 04:00 Laboratory Results - last 24 hr 12/27/21 06:35: Total Counted 100, Neutrophils % (Manual) 91 H, Lymphocytes % (Manual) 7 L, Monocytes % (Manual) 2, Platelet Estimate Marked increase, RBC Morphology Normal 12/28/21 05:30: WBC 23.9 H*, RBC 3.86 L, Hgb 11.7 L, Hct 38.0 L, MCV 98.5 H, MCH 30.2, MCHC 30.7 L, RDW 14.2, Plt Count 664 H, MPV 9.3, Neut % (Auto) 84.1 H, Lymph % (Auto) 8.2 L, [place] % (Auto) 6.7, Eos % (Auto) 0.5, Baso % (Auto) 0.5, Neut # (Auto) 20.1 H, Lymph # (Auto) 2.0, [place] # (Auto) 1.6 H, Eos # (Auto) 0.1, Baso # (Auto) 0.1, Total Counted 100, Neutrophils % (Manual) 78 H, Lymphocytes % (Manual) 15, Monocytes % (Manual) 7, Platelet Estimate Marked increase, RBC Morphology Normal 12/28/21 05:30: Sodium 130 L, Potassium 4.6 D, Chloride 101, Carbon Dioxide 25, Anion Gap 8.6, BUN 18 D, Creatinine 0.60 L, Estimated Creat Clear 194, Estimated GFR 141, Est GFR ( Amer) 171, Glucose 58 L D, Calcium 9.6, Total Bilirubin 1.6 H, AST 68 H, ALT 26, Alkaline Phosphatase 142 H, Total Protein 5.5 L, Albumin 2.3 L D, Globulin 3.2, Albumin/Globulin Ratio 0.7 L I & O for Last 24 hours: Intake & Output 12/25/21 12/26/21 12/27/21 12/28/21 11:59 11:59 11:59 11:59 Intake Total 3268 / 3268 2936 / 2936 2548 / 2548 2453 / 2453 Output Total 2420 / 2420 2075 / 2075 3195 / 3195 1395 / 1395 Balance 848 / 848 861 / 861 -647 / -647 1058 / 1058 Weight 227 lb 12.8 oz 224 lb 216 lb 7 oz 212 lb 6.4 oz Microbiology Reports for the Last 24 Hours: Microbiology 12/27/21 10:00 Abdomen Gram Stain - Final 12/27/21 10:00 Abdomen Abscess Culture - Preliminary - *Routine Abdominal Exam Present: soft, ostomy
[2021-12-28 08:00] VITALS: BP 97/63; PULSE 87; PULSE 90; RESP 18; TEMP 37.3; O2SAT 91
--- NOTE | 2021-12-28 09:43 | DIET.NUTRFU ---
Addendum entered by Marely Fernandes RD, LD 12/28/21 14:31: saw patient post lunch, he reports only consuming chips/crackers and prefers the strawberry ensure. Took order for dinner and notified kitchen of order. Original Note: Meal intake seems to be improving on [place] diet, consumed 50% of dinner last night. Labs reviewed, Na 130L, glucose 58L. continues on IVF for hydration. Continues to have EILEEN drains, I/O reviewed. Will continue to provide bland diet, education/handout was previously provided on diet.
--- NOTE | 2021-12-28 10:41 | HMH.ACPN2 ---
Internal Medicine - PN: Subj *Date: 12/28/21 *Time: 10:41 Interval history: FAMILY MEDICINE NOTE: The patient continues to languish and his clinical course. The drain was placed by radiology yesterday in the right upper gutter area. He has drainage from that as well as from the to lower drains. His abdominal wound may look a little bit better. Colostomies are functioning. Systolic blood pressure remains slightly elevated but satisfactory. Exam Vital signs and Labs for Last 24 Hours: Temp Pulse Resp BP Pulse Ox 99.2 F 87 18 97/63 L 91 L 12/28/21 08:00 12/28/21 08:00 12/28/21 08:00 12/28/21 08:00 12/28/21 08:00 Laboratory Results - last 24 hr 12/28/21 05:30: WBC 23.9 H*, RBC 3.86 L, Hgb 11.7 L, Hct 38.0 L, MCV 98.5 H, MCH 30.2, MCHC 30.7 L, RDW 14.2, Plt Count 664 H, MPV 9.3, Neut % (Auto) 84.1 H, Lymph % (Auto) 8.2 L, [place] % (Auto) 6.7, Eos % (Auto) 0.5, Baso % (Auto) 0.5, Neut # (Auto) 20.1 H, Lymph # (Auto) 2.0, [place] # (Auto) 1.6 H, Eos # (Auto) 0.1, Baso # (Auto) 0.1, Total Counted 100, Neutrophils % (Manual) 78 H, Lymphocytes % (Manual) 15, Monocytes % (Manual) 7, Platelet Estimate Marked increase, RBC Morphology Normal 12/28/21 05:30: Sodium 130 L, Potassium 4.6 D, Chloride 101, Carbon Dioxide 25, Anion Gap 8.6, BUN 18 D, Creatinine 0.60 L, Estimated Creat Clear 194, Estimated GFR 141, Est GFR ( Amer) 171, Glucose 58 L D, Calcium 9.6, Total Bilirubin 1.6 H, AST 68 H, ALT 26, Alkaline Phosphatase 142 H, Total Protein 5.5 L, Albumin 2.3 L D, Globulin 3.2, Albumin/Globulin Ratio 0.7 L I & O for Last 24 hours: Intake & Output 0712/26/21 12/27/21 12/28/21 11:59 11:59 11:59 11:59 Intake Total 3268 / 3268 2936 / 2936 2548 / 2548 2453 / 2453 Output Total 2420 / 2420 2075 / 2075 3195 / 3195 1395 / 1395 Balance 848 / 848 861 / 861 -647 / -647 1058 / 1058 Weight 227 lb 12.8 oz 224 lb 216 lb 7 oz 212 lb 6.4 oz Microbiology Reports for the Last 24 Hours: Microbiology 12/27/21 10:00 Abdomen Gram Stain - Final 12/27/21 10:00 Abdomen Abscess Culture - Preliminary Assessment and Plan (1) Postop check Status: Acute Category: Medical Code(s): Z09 - Encounter for follow-up examination after completed treatment for conditions other than malignant neoplasm (2) Mass of colon Status: Acute Category: Medical Code(s): K63.89 - Other specified diseases of intestine (3) Abdominal pain Status: Acute Category: Medical Code(s): R10.9 - Unspecified abdominal pain (4) Dehisced intestinal anastomosis Status: Acute Category: Medical Code(s): K91.89 - Other postprocedural complications and disorders of digestive system; T81.32XA - Disruption of internal operation (surgical) wound, not elsewhere classified, initial encounter (5) Colitis Status: Acute Category: Medical Code(s): K52.9 - Noninfective gastroenteritis and colitis, unspecified (6) Constipation Status: Acute Category: Medical Code(s): K59.00 - Constipation, unspecified (7) History of depression Status: Acute Category: Medical Code(s): Z86.59 - Personal history of other mental and behavioral disorders (8) Hyperthyroidism Status: Acute Category: Medical Code(s): E05.90 - Thyrotoxicosis, unspecified without thyrotoxic crisis or storm (9) Hypokalemia Status: Acute Category: Medical Code(s): E87.6 - Hypokalemia (10) Atelectasis Status: Acute Category: Medical Code(s): J98.11 - Atelectasis (11) Physical deconditioning Status: Acute Category: Medical Code(s): R53.81 - Other malaise (12) Postoperative ileus Status: Acute Category: Medical Code(s): K91.89 - Other postprocedural complications and disorders of digestive system; K56.7 - Ileus, unspecified (13) Abdominal fluid collection Status: Acute Category: Medical Code(s): R18.8 - Other ascites
[2021-12-28 12:00] VITALS: BP 119/67; PULSE 80; PULSE 83; RESP 22; TEMP 37.1; O2SAT 92
--- NOTE | 2021-12-28 13:37 | PC.NURSE ---
Rounded on pt, cleaned and straightened room. Pt up to the chair, no needs voiced at this time.
--- NOTE | 2021-12-28 13:51 | PC.NURSE ---
assisted patient to chair for lunch. tolerated well. no concerns or questions at this time. no complaints. noted to sleep off and on. call light within reach of patient
--- NOTE | 2021-12-28 15:23 | PC.NURSE ---
removed iv in r wrist and l ac and replaced with a new 20 gauge in r forearm.
[2021-12-28 16:00] VITALS: BP 122/75; PULSE 86; PULSE 88; RESP 20; TEMP 36.6; O2SAT 94
[2021-12-28 20:00] VITALS: BP 101/67; PULSE 80; PULSE 84; RESP 24; RESP 36; TEMP 37.8; O2SAT 90
--- NOTE | 2021-12-28 20:34 | PC.NURSE ---
VS stable and patient alert and oriented during shift. Patient very lethargic and wanted to sleep but agreed to sit in chair for majority of day and arousable from slumber. Uresil bag changed per Dr. Marshall but no drainage noted in new bag, Dr. Marshall notified. EILEEN drains, colostomy, and ileostomy drained at end of shift. No other changes noted
[2021-12-29] VITALS (8 sets, daily range): BP systolic 92–152; BP diastolic 53–65; PULSE 60–85; RESP 16–27; TEMP 36.5–38.1; O2SAT 94–99; BMI 29.6
--- NOTE | 2021-12-29 03:31 | PC.NURSE ---
pt has rested well this shift. he has c/o pain 3 times and was given prn pain medication per mar. his midline dressing was changed and packed wet to dry. he has been turned every 2 hours, and heels have been floated off of the mattress. he has a uresil drain in RUQ, an ileostomy in the RLQ, a midline incision, and in the LLQ he has a colostomy and 2 EILEEN drains. dressing noted to stage 2 pressure ulcer on right buttock. 2 reddened areas noted to right hip/buttock. he is a&o X4. he has been tachypneic and 2L NC added for decreased o2 sat to mid-high 80's while sleeping. lung sounds diminished on auscultation. +1 non-pitting edema in bilat hands and feet. NSR on telemetry. urine is dark and has a strong odor. LR is infusing at 100 ml/hr.
--- NOTE | 2021-12-29 05:48 | XR_ITS ---
PROCEDURE INFORMATION: Exam: XR Chest Exam date and time: 12/29/2021 5:52 AM Age: 51 years old Clinical indication: Fever and tachypnea; Additional info: Fever, tachypnea TECHNIQUE: Imaging protocol: Radiologic exam of the chest. Views: 1 view. COMPARISON: CR XR CHEST PORTABLE 12/22/2021 9:53 AM FINDINGS: Lungs: Similar patchy bibasilar airspace opacities. Pleural spaces: Similar small left pleural effusion. No pneumothorax. Heart/Mediastinum: Unremarkable. No cardiomegaly. Bones/joints: Unremarkable. IMPRESSION: No substantial interval change relative to 12/22/2021. Similar patchy bibasilar airspace opacities with small left pleural effusion.
--- NOTE | 2021-12-29 06:32 | PC.NURSE ---
Total output this shift: urine: 300ml clear/eric and 1 unmeasured void ileostomy:175ml dark thin liquid colostomy: about 10 ml brown thick stool uresil- none EILEEN drain 1- 5ml ayala thick liquid EILEEN drain 2- about 1 ml ayala thick liquid
[2021-12-29 07:19] LABS: Chloride 101 mmol/L (98-107); Potassium 3.2 mmoL/L (3.5-5.1); Sodium 132 mmol/L (136-145)
[2021-12-29 07:20] LABS: Basophils # 0.1 K/mm3 (0-0.2); Basophils % 0.7 % (0.1-2.0); Eosinophils # 0.1 K/mm3 (0.0-0.4); Eosinophils % 0.6 % (0.1-12.0); Hematocrit 34.8 % (42.0-52.0); Hemoglobin 10.9 g/dL (14.1-18.0); Lymphocytes # 1.6 K/mm3 (0.7-4.5); Lymphocytes % 7.2 % (10-50); Mean Corpuscular HGB Conc 31.2 g/dL (31.8-35.4); Mean Corpuscular Hemoglobin 30.2 pg (27.0-31.2); Mean Corpuscular Volume 96.7 fl (80-94); Mean Platelet Volume 8.7 fl (7.4-10.4); Monocytes # 1.5 K/mm3 (0.1-1.0); Monocytes % 6.7 % (1.7-9.3); Neutrophils # 18.6 K/mm3 (1.8-7.8); Neutrophils % 84.9 % (37.0-80.0); Platelet Count 765 K/mm3 (142-424); Red Cell Distribution Width 14.2 % (11.5-17.5); White Blood Count 21.9 K/mm3 (4.8-10.8)
[2021-12-29 07:22] LABS: Anion Gap 4.2 mEq/L (5-15); Blood Urea Nitrogen 15 mg/dl (9-20); Calcium 10.3 mg/dl (8.4-10.2); Carbon Dioxide 30 mmol/L (22.0-30.0); Creatinine Clearance Estimated 193 mL/min (50-200); Estimated Glomerular Filt Rate 141 ml/min (>60); GFR (African American) 171 ML/MIN (>60); Glucose 106 mg/dl (74-100); MANUAL DIFFERENTIAL MANUAL DIFFERENTIAL (MANUAL DIFF)
[2021-12-29 08:08] LABS: Lymphocytes % 17 % (10-50); Monocytes % 1 % (2-9); Neutrophils % 82 % (42-76); Total Cells Counted 100
[2021-12-29 08:10] LABS: Platelet Estimate Marked Increase; Stomatocytes 1+
--- NOTE | 2021-12-29 10:52 | P.PN_ITS ---
Subjective Narrative: Patient states that he is doing okay . No new complaints. He does state that he is eating. He says he has been out of bed. He states that his breathing is okay. Progress Note: A&P (1) Postop check Status: Acute (2) Mass of colon Status: Acute (3) Abdominal pain Status: Acute (4) Dehisced intestinal anastomosis Status: Acute (5) Colitis Status: Acute (6) Constipation Status: Acute (7) History of depression Status: Acute (8) Hyperthyroidism Status: Acute (9) Hypokalemia Status: Acute (10) Atelectasis Status: Acute (11) Physical deconditioning Status: Acute (12) Postoperative ileus Status: Acute (13) Abdominal fluid collection Status: Acute Assessment and Plan for All Diagnoses:: Continue current care. Physical therapy. Continue antibiotics of Invanz and Zosyn at this time. Gram stain on subhepatic fluid reveals few gram-positive cocci and many gram-negative rods. Culture and sensitivity pending. Possible removal of pelvic drains soon. Patient may very well require placement. Exam Vital signs and Labs for Last 24 Hours: Temp Pulse Resp BP Pulse Ox 100 F H 80 26 H 110/63 94 L 12/29/21 04:00 12/29/21 04:00 12/29/21 03:47 12/29/21 03:47 12/29/21 08:00 Laboratory Results - last 24 hr 12/29/21 07:06: WBC 21.9 H*, RBC 3.60 L, Hgb 10.9 L, Hct 34.8 L, MCV 96.7 H, MCH 30.2, MCHC 31.2 L, RDW 14.2, Plt Count 765 H, MPV 8.7, Neut % (Auto) 84.9 H, Lymph % (Auto) 7.2 L, [place] % (Auto) 6.7, Eos % (Auto) 0.6, Baso % (Auto) 0.7, Neut # (Auto) 18.6 H, Lymph # (Auto) 1.6, [place] # (Auto) 1.5 H, Eos # (Auto) 0.1, Baso # (Auto) 0.1, Total Counted 100, Neutrophils % (Manual) 82 H, Lymphocytes % (Manual) 17, Monocytes % (Manual) 1 L, Platelet Estimate Marked increase, Stomatocytes 1+ 12/29/21 07:06: Sodium 132 L, Potassium 3.2 L D, Chloride 101, Carbon Dioxide 30, Anion Gap 4.2 L, BUN 15, Creatinine 0.60 L, Estimated Creat Clear 193, Estimated GFR 141, Est GFR ( Amer) 171, Glucose 106 H, Calcium 10.3 H I & O for Last 24 hours: Intake & Output 12/26/21 12/27/21 12/28/21 12/29/21 11:59 11:59 11:59 11:59 Intake Total 2936 / 2936 2548 / 2548 2453 / 2453 2118 / 2118 Output Total 2075 / 2075 3195 / 3195 1395 / 1395 1056 / 1056 Balance 861 / 861 -647 / -647 1058 / 1058 1062 / 1062 Weight 224 lb 216 lb 7 oz 212 lb 6.4 oz 211 lb 8 oz Microbiology Reports for the Last 24 Hours: Microbiology 12/27/21 10:00 Abdomen Gram Stain - Final 12/27/21 10:00 Abdomen Abscess Culture - Preliminary Gram Negative Rods - *Routine Abdominal Exam Present: soft Comments: Ostomy functioning. Wound clean with minimal granulation tissue. Pelvic drain shows some thinner mildly feculent drainage. Subhepatic drain more serous.
--- NOTE | 2021-12-29 11:00 | PC.NURSE ---
Spoke with karthikeyan he stated that with the dressing changes he wants them to be dry to dry using 4x4 gauze or kerlix.
--- NOTE | 2021-12-29 15:21 | PC.NURSE ---
assisted patient with getting up to chair for lunch. no concerns with medications or care. no questions currently. assisted with urinal. encouraged him to ring out as needed.
--- NOTE | 2021-12-29 20:36 | PC.NURSE ---
Pt slept for most of the day. He stated that he did not sleep well last night. He sat up in the chair for a few hours and tolerated it well. He did not really have an appetite much today. Offered strawberry ensure to try and get him to have some intake. No change since last assessment.
[2021-12-30] VITALS (9 sets, daily range): BP systolic 114–148; BP diastolic 59–78; PULSE 70–74; RESP 18–20; TEMP 36.9–38; O2SAT 95–98; BMI 29.9
--- NOTE | 2021-12-30 06:11 | PC.NURSE ---
Pt has been resting through the shift, pt has complained of pain 2 times this shift, treated prn per aug. Midline dressing changed and packed dry to dry at 0400. Uresil noted in RUQ, ileostomy noted RLQ, colostomy noted LLQ, and 2 EILEEN drains noted LLQ. Ileostomy bag and appliance changed at 0400. Pt is alert and oriented x4, pt febrile, given prn med per aug. Pt O2 sat >95% 2L NC. Telemetry read NSR. Pt has used urinal two times this shift independently.
--- NOTE | 2021-12-30 09:00 | PC.NURSE ---
Spoke with Dr. Sherman bout him removing the sutures. He wants them covered with dry dressing such as 4x4 or kerlix, and use tape to hold in place.
--- NOTE | 2021-12-30 09:41 | HMH.GSPN ---
Subjective Patient reports: no new complaints (Appetite fairly poor) Progress Note: A&P (1) Postop check Status: Acute (2) Mass of colon Status: Acute (3) Abdominal pain Status: Acute (4) Dehisced intestinal anastomosis Status: Acute (5) Colitis Status: Acute (6) Constipation Status: Acute (7) History of depression Status: Acute (8) Hyperthyroidism Status: Acute (9) Hypokalemia Status: Acute (10) Atelectasis Status: Acute (11) Physical deconditioning Status: Acute Assessment and plan: Continue physical therapy (12) Postoperative ileus Status: Acute (13) Abdominal fluid collection Status: Acute Assessment and plan: Continue right upper quadrant (IR) drains. Left lower quadrant drains will be discontinued. (14) Open wound anterior abdominal wall Status: Acute Assessment and plan: Remove all sutures with the exception of 2 bridging sutures between lower and upper wound. Continue dry dressing changes. Exam Vital signs and Labs for Last 24 Hours: Temp Pulse Resp BP Pulse Ox 98.9 F 70 18 122/64 98 12/30/21 07:59 12/30/21 07:59 12/30/21 07:59 12/30/21 07:59 12/30/21 07:59 I & O for Last 24 hours: Intake & Output 12/27/21 12/28/21 12/29/21 12/30/21 11:59 11:59 11:59 11:59 Intake Total 2548 / 2548 2453 / 2453 2118 / 2118 1537 / 1537 Output Total 3195 / 3195 1395 / 1395 1056 / 1056 2260 / 2260 Balance -647 / -647 1058 / 1058 1062 / 1062 -723 / -723 Weight 216 lb 7 oz 212 lb 6.4 oz 211 lb 8 oz 214 lb 1.6 oz Microbiology Reports for the Last 24 Hours: Microbiology 12/27/21 10:00 Abdomen Gram Stain - Final 12/27/21 10:00 Abdomen Abscess Culture - Final Pseudomonas aeruginosa - Constitutional no acute distress - *Routine Respiratory Exam Absent: respiratory distress - *Routine Cardiovascular Exam Absent: tachycardia - *Routine Abdominal Exam Comments: Ostomy is viable and functioning. All drains in good position. Essentially no output in left lower quadrant drains. Wound base and margin are relatively clean with no sign of spreading infection.
--- NOTE | 2021-12-30 11:20 | XR_ITS ---
PROCEDURE INFORMATION: Exam: XR Skull Exam date and time: 12/30/2021 12:47 PM Age: 51 years old Clinical indication: Other: Dr wants mri starting with xray; Additional info: To view sella turcica re thyroid dysfunction TECHNIQUE: Imaging protocol: XR of the skull. Views: Less than 4 views. COMPARISON: No relevant prior studies available. FINDINGS: Sinuses: Well aerated. No opacification. Bones/joints: No evidence of erosion of the pituitary fossa. Soft tissues: Unremarkable. IMPRESSION: 1. No evidence of acute osseous injury. 2. Incomplete pneumatization of the frontal sinuses.
--- NOTE | 2021-12-30 11:22 | HMH.ACPN2 ---
Internal Medicine - PN: Subj *Date: 12/30/21 *Time: :22 Interval history: FAMILY MEDICINE NOTE: He is showing progress. He has been moved to a regular room. He is getting up with assistance and has been sitting in a chair. He is more alert. He is actually eating some. He is looking forward biscuits and gravy. Exam Vital signs and Labs for Last 24 Hours: Temp Pulse Resp BP Pulse Ox 98.9 F 73 20 133/68 97 12/30/21 11:18 12/30/21 11:18 12/30/21 11:18 12/30/21 11:18 12/30/21 11:18 I & O for Last 24 hours: Intake & Output 12/27/21 12/28/21 12/29/21 12/30/21 11:59 11:59 11:59 11:59 Intake Total 2548 / 2548 2453 / 2453 2118 / 2118 1537 / 1537 Output Total 3195 / 3195 1395 / 1395 1056 / 1056 2260 / 2260 Balance -647 / -647 1058 / 1058 1062 / 1062 -723 / -723 Weight 216 lb 7 oz 212 lb 6.4 oz 211 lb 8 oz 214 lb 1.6 oz Microbiology Reports for the Last 24 Hours: Microbiology 12/27/21 10:00 Abdomen Gram Stain - Final 12/27/21 10:00 Abdomen Abscess Culture - Final Pseudomonas aeruginosa - Constitutional no acute distress (Moves slowly with assistance.) - *Routine HEENT Exam Head: Present: normocephalic Eye: Present: EOMI, PERRL ENT: Present: mucous membranes moist - *Routine Neck Exam Present: supple, swelling (Nurse was concerned about some fullness on the right but I think exam is okay). Absent: JVD, lymphadenopathy - *Routine Respiratory Exam Present: CTA bilaterally - *Routine Cardiovascular Exam Present: RRR - *Routine Abdominal Exam Present: tenderness, ostomy (Functioning) - *Routine Extremities Exam Present: edema (Only trace) - *Routine Skin Exam Present: wounds (Dressing at the sacral area) - *Routine Neurological Exam Present: alert (Much more alert and interactive), moving all extremities Assessment and Plan (1) Postop check Status: Acute Category: Medical Code(s): Z09 - Encounter for follow-up examination after completed treatment for conditions other than malignant neoplasm (2) Mass of colon Status: Acute Category: Medical Code(s): K63.89 - Other specified diseases of intestine (3) Abdominal pain Status: Acute Category: Medical Code(s): R10.9 - Unspecified abdominal pain (4) Dehisced intestinal anastomosis Status: Acute Category: Medical Code(s): K91.89 - Other postprocedural complications and disorders of digestive system; T81.32XA - Disruption of internal operation (surgical) wound, not elsewhere classified, initial encounter (5) Colitis Status: Acute Category: Medical Code(s): K52.9 - Noninfective gastroenteritis and colitis, unspecified (6) Constipation Status: Acute Category: Medical Code(s): K59.00 - Constipation, unspecified (7) History of depression Status: Acute Category: Medical Code(s): Z86.59 - Personal history of other mental and behavioral disorders (8) Hypokalemia Status: Acute Category: Medical Code(s): E87.6 - Hypokalemia (9) Atelectasis Status: Acute Category: Medical Code(s): J98.11 - Atelectasis (10) Physical deconditioning Status: Acute Category: Medical Code(s): R53.81 - Other malaise (11) Postoperative ileus Status: Acute Category: Medical Code(s): K91.89 - Other postprocedural complications and disorders of digestive system; K56.7 - Ileus, unspecified (12) Abdominal fluid collection Status: Acute Category: Medical Code(s): R18.8 - Other ascites (13) Open wound anterior abdominal wall Status: Acute Category: Medical Code(s): S31.109A - Unspecified open wound of abdominal wall, unspecified quadrant without penetration into peritoneal cavity, initial encounter (14) Pituitary dysfunction Status: Acute Category: Medical Code(s): E23.7 - Disorder of pituitary gland, unspecified - Assessment and plan all Dx Assessment and Plan for all problems:: MRI of the head was not possible. Today wi
--- NOTE | 2021-12-30 11:42 | HMH.ITSTN ---
nurse irene called Dr. Zelaya is requesting a lateral skull be taken on the floor portable due to patient condition. I advised we usually don't do portable but we will do our best-- only option for order was to do the 3 view skull but only the lateral view is needed per Dr. Zelaya
[2021-12-30 12:59] LABS: T4 (Thyroxine) 8.8 ug/dl (5.53-11.0); Triiodothryronine (T3) Uptake 46 % (23.5-40.5)
[2021-12-30 13:12] LABS: Thyroid Stimulating Hormone 1.46 uIU/mL (0.465-4.68)
--- NOTE | 2021-12-30 15:38 | PC.NURSE ---
Pt is A/O. He sat up in the chair for a few hours of the shift. He is making an effort to want to get up and try and eat. He has tolerated it well. He's been eating more than before. He at 25% at lunch, and drank a fair amount of boost. Dr. Sherman at bedside took out most of his sutures except two bridging sutures. He got pain medicine before and tolerated it well. No change since last assessment.
--- NOTE | 2021-12-30 23:30 | PC.NURSE ---
dressing changed to open wounds in midline dressing; packed with dry guaze shanti, covered with 4/4s and abd and secured with tape, pt tolerated well, noted old dressing greenish/bloody drainage on removed dressing
[2021-12-31] VITALS (8 sets, daily range): BP systolic 124–187; BP diastolic 70–92; PULSE 70–90; RESP 17–24; TEMP 36.3–37.9; O2SAT 93–98; BMI 30.5
--- NOTE | 2021-12-31 04:00 | PC.NURSE ---
pt febrile through the night and medicated with tylenol, dressing change completed and pt tolerated well, no changes from previous assessment, pt medicated once for pain, pt voiding without diff, no other issues or concerns at this time.
[2021-12-31 09:15] LABS: Basophils # 0.1 K/mm3 (0-0.2); Basophils % 0.7 % (0.1-2.0); Eosinophils # 0.2 K/mm3 (0.0-0.4); Hematocrit 34.4 % (42.0-52.0); Hemoglobin 10.8 g/dL (14.1-18.0); Lymphocytes # 1.7 K/mm3 (0.7-4.5); Lymphocytes % 9.8 % (10-50); Mean Corpuscular HGB Conc 31.3 g/dL (31.8-35.4); Mean Corpuscular Hemoglobin 29.8 pg (27.0-31.2); Mean Corpuscular Volume 95.1 fl (80-94); Mean Platelet Volume 8.3 fl (7.4-10.4); Monocytes # 1.3 K/mm3 (0.1-1.0); Monocytes % 7.3 % (1.7-9.3); Neutrophils # 14.1 K/mm3 (1.8-7.8); Neutrophils % 81.2 % (37.0-80.0); Platelet Count 797 K/mm3 (142-424); Red Blood Count 3.62 M/mm3 (4.60-6.20); Red Cell Distribution Width 14.4 % (11.5-17.5); White Blood Count 17.3 K/mm3 (4.8-10.8)
[2021-12-31 09:17] LABS: MANUAL DIFFERENTIAL MANUAL DIFFERENTIAL (MANUAL DIFF)
[2021-12-31 09:19] LABS: Chloride 100 mmol/L (98-107); Sodium 133 mmol/L (136-145)
[2021-12-31 09:20] LABS: Potassium 3.3 mmoL/L (3.5-5.1)
[2021-12-31 09:22] LABS: Blood Urea Nitrogen 8 mg/dl (9-20); Creatinine Clearance Estimated 239 mL/min (50-200); Estimated Glomerular Filt Rate 174 ml/min (>60); GFR (African American) 210 ML/MIN (>60)
[2021-12-31 09:23] LABS: Anion Gap 4.3 mEq/L (5-15); Calcium 9.9 mg/dl (8.4-10.2); Carbon Dioxide 32 mmol/L (22.0-30.0); Glucose 102 mg/dl (74-100)
[2021-12-31 09:35] LABS: Lymphocytes % 9 % (10-50); Monocytes % 11 % (2-9); Neutrophils % 80 % (42-76); Platelet Estimate Marked Increase; Total Cells Counted 100
[2021-12-31 09:36] LABS: Anisocytosis 1+; Hypochromasia 1+; Macrocytosis 1+; Ovalocytes 1+
--- NOTE | 2021-12-31 09:46 | P.PN_ITS ---
Subjective Patient reports: no new complaints Narrative: He states that he feels a little bit better this morning . He believes his appetite has improved a little bit . Progress Note: A&P (1) Mass of colon Status: Acute (2) Dehisced intestinal anastomosis Status: Acute (3) Colitis Status: Acute (4) Hypokalemia Status: Acute (5) Atelectasis Status: Acute (6) Physical deconditioning Status: Acute Assessment and plan: Continue physical therapy (7) Postoperative ileus Status: Acute (8) Abdominal fluid collection Status: Acute Assessment and plan: White blood cell count slightly improved today. Continue right upper quadrant (IR) drains for now Continue antibiotics for now (9) Open wound anterior abdominal wall Status: Acute Assessment and plan: Continue dressing changes Exam Vital signs and Labs for Last 24 Hours: Temp Pulse Resp BP Pulse Ox 99.1 F 84 20 151/86 H 98 12/31/21 08:00 12/31/21 08:00 12/31/21 08:00 12/31/21 08:00 12/31/21 08:00 Laboratory Results - last 24 hr 12/30/21 11:40: TSH 1.46, Free T4 Index 4.0 L, Thyroxine (T4) 8.8, T3 Uptake 46 H 12/31/21 09:08: WBC 17.3 H, RBC 3.62 L, Hgb 10.8 L, Hct 34.4 L, MCV 95.1 H, MCH 29.8, MCHC 31.3 L, RDW 14.4, Plt Count 797 H, MPV 8.3, Neut % (Auto) 81.2 H, Lymph % (Auto) 9.8 L, [place] % (Auto) 7.3, Eos % (Auto) 1.0, Baso % (Auto) 0.7, Neut # (Auto) 14.1 H, Lymph # (Auto) 1.7, [place] # (Auto) 1.3 H, Eos # (Auto) 0.2, Baso # (Auto) 0.1, Total Counted 100, Neutrophils % (Manual) 80 H, Lymphocytes % (Manual) 9 L, Monocytes % (Manual) 11 H, Platelet Estimate Marked increase, Hypochromasia 1+, Anisocytosis 1+, Macrocytosis 1+, Ovalocytes 1+ 12/31/21 09:08: Sodium 133 L, Potassium 3.3 L, Chloride 100, Carbon Dioxide 32 H , Anion Gap 4.3 L, BUN 8 L D, Creatinine 0.50 L, Estimated Creat Clear 239, Estimated GFR 174, Est GFR ( Amer) 210 D, Glucose 102 H, Calcium 9.9 I & O for Last 24 hours: Intake & Output 12/28/21 12/29/21 12/30/21 12/31/21 11:59 11:59 11:59 11:59 Intake Total 2453 / 2453 2118 / 2118 1537 / 1537 3167 / 3167 Output Total 1395 / 1395 1056 / 1056 2360 / 2360 1950 / 1950 Balance 1058 / 1058 1062 / 1062 -823 / -823 1217 / 1217 Weight 212 lb 6.4 oz 211 lb 8 oz 214 lb 1.6 oz 218 lb 6.4 oz Microbiology Reports for the Last 24 Hours: Microbiology 12/27/21 10:00 Abdomen Gram Stain - Final 12/27/21 10:00 Abdomen Abscess Culture - Final Pseudomonas aeruginosa - Constitutional no acute distress - *Routine Respiratory Exam Absent: respiratory distress - *Routine Cardiovascular Exam Absent: tachycardia - *Routine Abdominal Exam Comments: Essentially unchanged. Dressings intact. Ostomies remain viable
--- NOTE | 2021-12-31 13:35 | PC.NURSE ---
Rounded on pt, cleaned and straightened room. Ice water provided, pt up in chair watching tv, no needs voiced at this time.
--- NOTE | 2021-12-31 16:00 | PC.NURSE ---
Changed both ileostomy, and colostomy today. Cleaned where the EILEEN drains were and dressed with dry dressing. Also changed outside midline dressing.
--- NOTE | 2021-12-31 16:31 | HMH.ACPN2 ---
Internal Medicine - PN: Subj *Date: 12/31/21 *Time: 16:31 Interval history: FAMILY MEDICINE NOTE: He continues to slowly improve. He is alert and cogent. He feels that he is doing better. He denies any respiratory difficulty. Apparently he is eating a little bit better. Exam Vital signs and Labs for Last 24 Hours: Temp Pulse Resp BP Pulse Ox 98.3 F 75 18 141/76 H 98 12/31/21 16:00 12/31/21 16:00 12/31/21 16:00 12/31/21 16:00 12/31/21 16:00 Laboratory Results - last 24 hr 12/31/21 09:08: WBC 17.3 H, RBC 3.62 L, Hgb 10.8 L, Hct 34.4 L, MCV 95.1 H, MCH 29.8, MCHC 31.3 L, RDW 14.4, Plt Count 797 H, MPV 8.3, Neut % (Auto) 81.2 H, Lymph % (Auto) 9.8 L, [place] % (Auto) 7.3, Eos % (Auto) 1.0, Baso % (Auto) 0.7, Neut # (Auto) 14.1 H, Lymph # (Auto) 1.7, [place] # (Auto) 1.3 H, Eos # (Auto) 0.2, Baso # (Auto) 0.1, Total Counted 100, Neutrophils % (Manual) 80 H, Lymphocytes % (Manual) 9 L, Monocytes % (Manual) 11 H, Platelet Estimate Marked increase, Hypochromasia 1+, Anisocytosis 1+, Macrocytosis 1+, Ovalocytes 1+ 12/31/21 09:08: Sodium 133 L, Potassium 3.3 L, Chloride 100, Carbon Dioxide 32 H, Anion Gap 4.3 L, BUN 8 L D, Creatinine 0.50 L, Estimated Creat Clear 239, Estimated GFR 174, Est GFR ( Amer) 210 D, Glucose 102 H, Calcium 9.9 I & O for Last 24 hours: Intake & Output 12/29/21 12/30/21 12/31/21 01/01/22 11:59 11:59 11:59 11:59 Intake Total 2118 / 2118 1537 / 1537 3167 / 3167 120 / 120 Output Total 1056 / 1056 2360 / 2360 1950 / 1949 400 / 400 Balance 1062 / 1062 -823 / -823 1217 / 1217 -280 / -280 Weight 211 lb 8 oz 214 lb 1.6 oz 218 lb 6.4 oz - Constitutional no acute distress - *Routine HEENT Exam Head: Present: normocephalic Eye: Present: EOMI, PERRL ENT: Present: mucous membranes moist - *Routine Neck Exam Present: supple. Absent: lymphadenopathy - *Routine Respiratory Exam Present: decreased breath sounds (At bases), CTA bilaterally. Absent: wheezes - *Routine Cardiovascular Exam Present: RRR - *Routine Abdominal Exam Present: tenderness, ostomy - *Routine Extremities Exam Absent: cyanosis, clubbing, edema - *Routine Skin Exam Present: warm. Absent: rash - *Routine Neurological Exam Present: alert, oriented X3 Assessment and Plan (1) Mass of colon Status: Acute Category: Medical Code(s): K63.89 - Other specified diseases of intestine (2) Dehisced intestinal anastomosis Status: Acute Category: Medical Code(s): K91.89 - Other postprocedural complications and disorders of digestive system; T81.32XA - Disruption of internal operation (surgical) wound, not elsewhere classified, initial encounter (3) Colitis Status: Acute Category: Medical Code(s): K52.9 - Noninfective gastroenteritis and colitis, unspecified (4) Hypokalemia Status: Acute Category: Medical Code(s): E87.6 - Hypokalemia (5) Atelectasis Status: Acute Category: Medical Code(s): J98.11 - Atelectasis (6) Physical deconditioning Status: Acute Category: Medical Code(s): R53.81 - Other malaise (7) Postoperative ileus Status: Acute Category: Medical Code(s): K91.89 - Other postprocedural complications and disorders of digestive system; K56.7 - Ileus, unspecified (8) Abdominal fluid collection Status: Acute Category: Medical Code(s): R18.8 - Other ascites (9) Open wound anterior abdominal wall Status: Acute Category: Medical Code(s): S31.109A - Unspecified open wound of abdominal wall, unspecified quadrant without penetration into peritoneal cavity, initial encounter - Assessment and plan all Dx Assessment and Plan for all problems:: The lateral skull x-ray was not remarkable. His thyroid panel seems to be normalizing. Perhaps this was indeed a reflection of malnutrition and protein imbalance. I will continue to follow the patient with you.
--- NOTE | 2021-12-31 19:15 | PC.NURSE ---
Spoke with dr flowers. He gave orders for chest xray, and once 20mg lasix IV. No change to IV fluid rate.
--- NOTE | 2021-12-31 19:15 | XR_ITS ---
PROCEDURE INFORMATION: Exam: XR Chest Exam date and time: 12/31/2021 7:20 PM Age: 51 years old Clinical indication: Shortness of breath; Patient HX: Recent abdominal SX; Additional info: Recent abdominal SX, SOA since TECHNIQUE: Imaging protocol: Radiologic exam of the chest. Views: 1 view. COMPARISON: CR XR CHEST PORTABLE 12/29/2021 5:52 AM FINDINGS: Lungs: Low lung volumes with associated vascular crowding and bibasilar atelectasis. Left retrocardiac opacities appear unchanged. Pleural spaces: Probable left pleural effusion. Heart/Mediastinum: Borderline cardiomegaly. Bones/joints: Unremarkable. IMPRESSION: 1. Left retrocardiac opacities appear unchanged. Left lower lobe collapse versus left lower lobe pneumonia, or both, could produce this appearance. Six week follow-up chest radiograph, standing PA and lateral, is recommended. 2. Probable left pleural effusion.
--- NOTE | 2021-12-31 20:32 | PC.NURSE ---
Pt has been A/O x4 today. He stated that he was feeling a little short of breath early in shift. He was sating high 90's, but I turned him up to 3L to try and help with his breathing. Around 183 he stated that its hurting to breath. He has had an intermittent cough through out the day. He stated that it was starting to be more frequent. I gave him a norco to help with pain, and bring low grade temp down.
[2022-01-01] VITALS (8 sets, daily range): BP systolic 120–163; BP diastolic 69–94; PULSE 79–90; RESP 20–28; TEMP 36.5–37.4; O2SAT 93–98
--- NOTE | 2022-01-01 01:00 | PC.NURSE ---
dressing to midline incision changed, old packing and dressing removed with noted greenish/blooding drainage on old dressing, wounds packed with kerlix, abd pads placed with paper tape to secure, pt tolerated with some mild pain noted, old j/p site cleansed with chloraprep and abd dressing placed and secured with tape.
--- NOTE | 2022-01-01 01:40 | PC.NURSE ---
2030 dr flowers called and given chest xray report as dictate, read impression to dr flowers, see report; dr flowers states to have pulmonology to see pt in am and administer 20mg of lasix already ordered repeated and verified. informed dr flowers of soa with o2 sats 97% on 3L; lungs diminished to left side, diminished to absent on left lower lobe.
--- NOTE | 2022-01-01 05:04 | PC.NURSE ---
pt rested some through the night, pt with soa noted at start of shift, dr flowers notifed and cxray was ordered that revealed 1.Left retrocardiac opacities appear unchanged. Left lower lobe collapse versus left lower lobe pneumonia, or both, could produce this appearance. Six week follow-up chest radiograph, standing PA and lateral, is recommended. 2. Probable left pleural effusion. these results were called to dr flowers at 2030; pulmonolgy consult ordered for this am, lung sounds diminished to left side, 02 sats remain 95-98% on 02 at 3L, VSS, midline dressing changed this shift, moderate amount of greenish and red drainage noted, pt has been febrile and treated with tylenol, pt is a&o x4; no other issues or concerns at this time, ostomy sites draining well, stomas appear pink.
[2022-01-01 07:52] LABS: Basophils # 0.1 K/mm3 (0-0.2); Basophils % 0.6 % (0.1-2.0); Eosinophils # 0.3 K/mm3 (0.0-0.4); Eosinophils % 1.7 % (0.1-12.0); Hematocrit 31.8 % (42.0-52.0); Hemoglobin 10.1 g/dL (14.1-18.0); Lymphocytes # 1.9 K/mm3 (0.7-4.5); Lymphocytes % 12.1 % (10-50); Mean Corpuscular HGB Conc 31.8 g/dL (31.8-35.4); Mean Corpuscular Hemoglobin 28.7 pg (27.0-31.2); Mean Corpuscular Volume 90.1 fl (80-94); Mean Platelet Volume 7.5 fl (7.4-10.4); Monocytes # 1.3 K/mm3 (0.1-1.0); Monocytes % 8.1 % (1.7-9.3); Neutrophils # 12.4 K/mm3 (1.8-7.8); Neutrophils % 77.6 % (37.0-80.0); Platelet Count 667 K/mm3 (142-424); Red Blood Count 3.53 M/mm3 (4.60-6.20); Red Cell Distribution Width 13.4 % (11.5-17.5); White Blood Count 15.9 K/mm3 (4.8-10.8)
[2022-01-01 07:54] LABS: MANUAL DIFFERENTIAL MANUAL DIFFERENTIAL (MANUAL DIFF)
[2022-01-01 08:00] LABS: Anion Gap 4.3 mEq/L (5-15); Blood Urea Nitrogen 7 mg/dl (9-20); Calcium 10.2 mg/dl (8.4-10.2); Carbon Dioxide 34 mmol/L (22.0-30.0); Chloride 99 mmol/L (98-107); Creatinine Clearance Estimated 236 mL/min (50-200); Estimated Glomerular Filt Rate 174 ml/min (>60); GFR (African American) 210 ML/MIN (>60); Glucose 98 mg/dl (74-100); Potassium 3.3 mmoL/L (3.5-5.1); Sodium 134 mmol/L (136-145)
[2022-01-01 08:09] LABS: Anisocytosis 1+; Hypochromasia 1+; Lymphocytes % 19 % (10-50); Monocytes % 5 % (2-9); Neutrophils % 76 % (42-76); Platelet Estimate Marked Increase; Total Cells Counted 100
--- NOTE | 2022-01-01 08:56 | P.PN_ITS ---
Subjective Narrative: He states that he feels just a little bit better . His appetite remains fairly poor but he states it is improving . Progress Note: A&P (1) Mass of colon Status: Acute (2) Dehisced intestinal anastomosis Status: Acute (3) Colitis Status: Acute (4) Hypokalemia Status: Acute (5) Atelectasis Status: Acute Assessment and plan: Continue incentive spirometer. Primary care has requested pulmonology consultation. This is pending. (6) Physical deconditioning Status: Acute Assessment and plan: Continue physical therapy/ambulation (7) Postoperative ileus Status: Acute (8) Abdominal fluid collection Status: Acute Assessment and plan: Continue right upper quadrant (IR) drains for now. Likely repeat CT scan later this week followed by possible drain removal. May require additional drains. (9) Open wound anterior abdominal wall Status: Acute Exam Vital signs and Labs for Last 24 Hours: Temp Pulse Resp BP Pulse Ox 97.7 F 79 24 156/91 H 94 L 01/01/22 08:00 01/01/22 08:00 01/01/22 08:00 01/01/22 08:00 01/01/22 08:00 Laboratory Results - last 24 hr 12/31/21 09:08: WBC 17.3 H, RBC 3.62 L, Hgb 10.8 L, Hct 34.4 L, MCV 95.1 H, MCH 29.8, MCHC 31.3 L, RDW 14.4, Plt Count 797 H, MPV 8.3, Neut % (Auto) 81.2 H, Lymph % (Auto) 9.8 L, [place] % (Auto) 7.3, Eos % (Auto) 1.0, Baso % (Auto) 0.7, Neut # (Auto) 14.1 H, Lymph # (Auto) 1.7, [place] # (Auto) 1.3 H, Eos # (Auto) 0.2, Baso # (Auto) 0.1, Total Counted 100, Neutrophils % (Manual) 80 H, Lymphocytes % (Manual) 9 L, Monocytes % (Manual) 11 H, Platelet Estimate Marked increase, Hypochromasia 1+, Anisocytosis 1+, Macrocytosis 1+, Ovalocytes 1+ 12/31/21 09:08: Sodium 133 L, Potassium 3.3 L, Chloride 100, Carbon Dioxide 32 H , Anion Gap 4.3 L, BUN 8 L D, Creatinine 0.50 L, Estimated Creat Clear 239, Estimated GFR 174, Est GFR ( Amer) 210 D, Glucose 102 H, Calcium 9.9 01/01/22 07:44: WBC 15.9 H, RBC 3.53 L, Hgb 10.1 L, Hct 31.8 L, MCV 90.1, MCH 28.7, MCHC 31.8, RDW 13.4, Plt Count 667 H, MPV 7.5, Neut % (Auto) 77.6, Lymph % (Auto) 12.1, [place] % (Auto) 8.1, Eos % (Auto) 1.7, Baso % (Auto) 0.6, Neut # (Auto) 12.4 H, Lymph # (Auto) 1.9, [place] # (Auto) 1.3 H, Eos # (Auto) 0.3, Baso # (Auto) 0.1, Total Counted 100, Neutrophils % (Manual) 76, Lymphocytes % (Manual) 19, Monocytes % (Manual) 5, Platelet Estimate Marked increase, Hypochromasia 1+, Anisocytosis 1+ 01/01/22 07:44: Sodium 134 L, Potassium 3.3 L, Chloride 99, Carbon Dioxide 34 H, Anion Gap 4.3 L, BUN 7 L, Creatinine 0.50 L, Estimated Creat Clear 236, Estimated GFR 174, Est GFR ( Amer) 210, Glucose 98, Calcium 10.2 I & O for Last 24 hours: Intake & Output 12/29/21 12/30/21 12/31/21 01/01/22 11:59 11:59 11:59 11:59 Intake Total 2118 / 2118 1537 / 1537 3167 / 3167 1172 / 1172 Output Total 1056 / 1056 2360 / 2360 1950 / 1950 2300 / 2300 Balance 1062 / 1062 -823 / -823 1217 / 1217 -1128 / -1128 Weight 211 lb 8 oz 214 lb 1.6 oz 218 lb 6.4 oz 214 lb 14.4 oz - Constitutional no acute distress - *Routine Respiratory Exam Absent: respiratory distress - *Routine Cardiovascular Exam Absent: tachycardia - *Routine Abdominal Exam Comments: Essentially unchanged. Ostomy is remain viable. Decreasing output from end c olostomy (diverted).
--- NOTE | 2022-01-01 09:45 | HMH.PULMCON ---
*Admission Date: 12/14/21 *Reason for consult:: Acute hypoxic respiratory failure, left pleural effusion, hospital-acquired *History of present illness: Mr. Willis is a 51-year-old male current smoker greater than [id number] smoking history, denies any use of inhalers/oxygen at baseline presented to the hospital on 12/14/2021 with abdominal distress found to be having sigmoid stricture status post colonic resection, hepatic abscess s/p drainage, cultures positive for Pseudomonas and has been on Zosyn from 12/30/2021 with improving leukocytosis found to have left lower lobe airspace disease and pleural effusion and pulmonary was called for further management. [facility] History Medical History: Reports:: Depression, Gastroesophageal Reflux Disease(GERD), Hyperlipidemia, Hypertension Denies:: Cancer, Diabetes Mellitus Type 1, Diabetes Mellitus Type 2, Internal Pacemaker, MRSA, Seizures *Have you ever received a pneumonia vaccine?: No *Have you received a flu vaccine this season?: No Other Medical History: Reports: Other (No history of rashes or dermatologic problems). Denies: Arthritis, Blood Transfusion Reaction, Fibromyalgia, Acquired Immunodeficiency Syndrome (AIDS), Hypothyroidism, Thyroid Disease Anesthesia experience/problems:: None Other Surgeries: Yes: No Previous Surgery, Colonoscopy (Multiple), Other. 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 Mother is healthy at age 69. 2 brothers and 2 sisters.), Other (He denies arthritic symptoms.), no Thyroid Disorder ROS - Cons Reports anorexia, Reports body ache(s), Reports fatigue - Eyes Denies change in vision - ENT Denies bleeding gums - Card Reports shortness of breath with activity - Resp Respiratory: Reports chest congestion, Reports cough, Denies excessive phlegm production, Reports cough with sputum production, Denies pain with breathing, Denies wheezing - GI Gastrointestingal: Reports: abdominal pain - [place] Musculoskeletal: Reports back pain - Psych Denies thoughts of hurting/killing others, Denies thoughts of hurting/killing yourself Meds Home Medications Medication Instructions Recorded Confirmed Type Buspirone HCl [Buspar 5mg tablet] 5 mg PO TID 09/30/21 12/14/21 History Escitalopram Oxalate [Lexapro] 10 mg PO DAILY 09/30/21 12/14/21 History Quetiapine Fumarate [Seroquel 100 mg PO HS 09/30/21 12/14/21 History 100mg tablet] lisinopriL [Lisinopril] 10 mg PO DAILY 09/30/21 12/14/21 History Ondansetron [Zofran 4mg ODT] 4 mg PO TIDP PRN 7 Days #20 tab 11/30/21 12/14/21 Rx Atorvastatin Calcium [Lipitor 40mg 40 mg PO HS 12/14/21 12/14/21 History Tab] Pantoprazole Sodium [Protonix 20mg 20 mg PO HS 12/14/21 12/14/21 History Tab] Allergies Allergy/AdvReac Type Severity Reaction Status Date / Time aspirin Allergy Verified 12/12/21 09:11 codeine Allergy Verified 12/12/21 09:11 Exam - Constitutional Constitutional:: Absent: no acute distress, comfortable - HENMT Exam HENMT: Present: normocephalic - Eye Exam Eyes:: Present: normal appearance both eyes and related structures - Neck Exam Neck:: Present: normal visual inspection - Respiratory Exam Respiratory:: Present: able to speak in complete sentences, respiratory distress, decreased breath sounds, rhonchi. Absent: wheezing - Cardiovascular Exam Cardiac:: Present: S1,
--- NOTE | 2022-01-01 10:51 | DIET.NUTRFU ---
Patient continues on bland diet, some appetite/intake improvement. Slight increase in his symptoms and chest x-ray from 715 and 717 showed worsening left-sided pleural effusion-questionable left lower lobe pneumonia and pulmonary was called for further management. Lasix had been given12/31. Patient CT abdomen also showed worsening left lower lobe airspace disease and patient has been receiving Zosyn which will cover for hospital-acquired pneumonia. Proceeded with thoracentesis for her nodular left effusion. Patient is also receiving ensure with meals for extra calories and protein. Admit wt was 96kg, up to 107kg on 12/24, currently at 99kg. Weight changes due to fluid status. Patient is at high rsk for malnutrition d/t lack of intake pre and post sx and now d/t PNA. Labs /meds reviewed. Will continue to offer supplements and encourage po intake.
--- NOTE | 2022-01-01 13:02 | US_ITS ---
FINAL REPORT CLINICAL HISTORY: Effusion lt-- [address] lutz FINDINGS: THORACENTESIS W IMAGING GUIDANCE Ultrasound guidance was provided for thoracentesis performed by Dr Lutz. Reported 720 mL was removed. IMPRESSION: Ultrasound guidance for thoracentesis. Reviewed, Interpreted and Dictated by Arsenio Garcias III, MD Transcribed by Ayo Godoy Authenticated and . [facility]
--- NOTE | 2022-01-01 13:30 | HMH.ACPN2 ---
Internal Medicine - PN: Subj *Date: 01/01/22 *Time: 13:30 Interval history: FAMILY MEDICINE NOTE: I saw the patient this AM. I took the liberty, yesterday, of ordering Pulmonary consultation due to the CXR report of development of pleural effusion. Otherwise he seems to be showing slow improvement. Exam Vital signs and Labs for Last 24 Hours: Temp Pulse Resp BP Pulse Ox 98.2 F 80 28 H 163/89 H 97 01/01/22 11:40 01/01/22 11:40 01/01/22 11:40 01/01/22 11:40 01/01/22 11:40 Laboratory Results - last 24 hr 01/01/22 07:44: WBC 15.9 H, RBC 3.53 L, Hgb 10.1 L, Hct 31.8 L, MCV 90.1, MCH 28.7, MCHC 31.8, RDW 13.4, Plt Count 667 H, MPV 7.5, Neut % (Auto) 77.6, Lymph % (Auto) 12.1, [place] % (Auto) 8.1, Eos % (Auto) 1.7, Baso % (Auto) 0.6, Neut # (Auto) 12.4 H, Lymph # (Auto) 1.9, [place] # (Auto) 1.3 H, Eos # (Auto) 0.3, Baso # (Auto) 0.1, Total Counted 100, Neutrophils % (Manual) 76, Lymphocytes % (Manual) 19, Monocytes % (Manual) 5, Platelet Estimate Marked increase, Hypochromasia 1+, Anisocytosis 1+ 01/01/22 07:44: Sodium 134 L, Potassium 3.3 L, Chloride 99, Carbon Dioxide 34 H, Anion Gap 4.3 L, BUN 7 L, Creatinine 0.50 L, Estimated Creat Clear 236, Estimated GFR 174, Est GFR ( Amer) 210, Glucose 98, Calcium 10.2 I & O for Last 24 hours: Intake & Output 12/30/21 12/31/21 01/01/22 01/02/22 11:59 11:59 11:59 11:59 Intake Total 1537 / 1537 3167 / 3167 1172 / 1172 Output Total 2360 / 2360 1950 / 1950 2300 / 2300 Balance -823 / -823 1217 / 1217 -1128 / -1128 Weight 214 lb 1.6 oz 218 lb 6.4 oz 214 lb 14.4 oz - Constitutional no acute distress - *Routine HEENT Exam Head: Present: normocephalic Eye: Present: EOMI, PERRL ENT: Present: mucous membranes moist - *Routine Neck Exam Present: supple. Absent: lymphadenopathy - *Routine Respiratory Exam Present: CTA bilaterally - *Routine Cardiovascular Exam Present: RRR - *Routine Abdominal Exam Present: soft, tenderness, ostomy - *Routine Extremities Exam Present: edema (trace). Absent: cyanosis, clubbing - *Routine Skin Exam Present: warm, wounds (sacral wound with dressing in place). Absent: rash - *Routine Neurological Exam Present: alert, oriented X3 Assessment and Plan (1) Mass of colon Status: Acute Category: Medical Code(s): K63.89 - Other specified diseases of intestine (2) Dehisced intestinal anastomosis Status: Acute Category: Medical Code(s): K91.89 - Other postprocedural complications and disorders of digestive system; T81.32XA - Disruption of internal operation (surgical) wound, not elsewhere classified, initial encounter (3) Colitis Status: Acute Category: Medical Code(s): K52.9 - Noninfective gastroenteritis and colitis, unspecified (4) Hypokalemia Status: Acute Category: Medical Code(s): E87.6 - Hypokalemia (5) Atelectasis Status: Acute Category: Medical Code(s): J98.11 - Atelectasis (6) Physical deconditioning Status: Acute Category: Medical Code(s): R53.81 - Other malaise (7) Postoperative ileus Status: Acute Category: Medical Code(s): K91.89 - Other postprocedural complications and disorders of digestive system; K56.7 - Ileus, unspecified (8) Abdominal fluid collection Status: Acute Category: Medical Code(s): R18.8 - Other ascites (9) Open wound anterior abdominal wall Status: Acute Category: Medical Code(s): S31.109A - Unspecified open wound of abdominal wall, unspecified quadrant without penetration into peritoneal cavity, initial encounter - Assessment and plan all Dx Assessment and Plan for all problems:: See pulmonary consult report.
[2022-01-01 13:31] LABS: Lactate Dehydrogenase 162 U/L (313-618)
--- NOTE | 2022-01-01 15:11 | HMH.PROC ---
[facility] Procedure Note Procedure Note:: Procedure: Left Thoracentesis Indication for procedure: Pleural Effusion, Hypoxic Respiratory failure A time out was performed, and the chest x-ray was reviewed, the appropriate side was confirmed and marked. My hands were washed immediately prior to the procedure. I wore a surgical cap, mask with protective eyewear, sterile gown, and sterile gloves throughout the procedure. The patient was prepped and draped in a sterile manner using chlorhexidine scrub after the appropriate level was percussed and confirmed by ultrasound. 1% lidocaine was used to anesthetize the skin, subcutaneous tissue, superior aspect of the rib periosteum and parietal pleura. A finder needle was then introduced at the seventh intercoastal space posteriorly to locate the pleural fluid; straw colored fluid was aspirated. A 10-blade scalpel was used to joanna the skin at the insertion site. The Grra-j-Gdsocqyr needle was then introduced through the skin incision into the pleural space using negative aspiration pressure and the red colorimetric indicator to confirm appropriate positioning of the needle. The thoracentesis catheter was then threaded without difficulty. 720 ml of straw-colored fluid was removed without difficulty. The catheter was then removed. No immediate complications were noted during the procedure. A post-procedure chest X-ray is pending at the time of this note. The fluid will be sent for routine pleural studies, cultures along with cytopathology. Patient tolerated the procedure well Estimated blood loss is 5cc.
[2022-01-01 15:51] LABS: Source, Body Fld. Thoracentesis Fluid
[2022-01-01 15:52] LABS: Appearance,Body Fld. Cloudy; Volume,Body Fld. 720 mL
--- NOTE | 2022-01-01 17:00 | PC.NURSE ---
Patient remains A&Ox4. Patient tolerated thoracentesis procedure well. Patient was treated for pain per MD orders. Patient lung sounds are still diminished to absent in the lower left lobe. Patient reports being able to breathe better then before the procedure. Patient has remained afebrile thus far in the shift. Patient's colostomy and uriseal still have no drainage. Patient's ileostomy was noted to have brown mucoid drainage noted. Abdominal midline dressing was reinforced. Patient has generalized edema not noted non-pitting plus one. Patient remains on 3LNC and oxygen saturation maintained greater then 95%.
[2022-01-01 19:00] LABS: Mononuclear WBCs,Body Fluid 62 %; Polynuclear WBC,Body Fluid 38 %; RBC,Body Fluid < 10 cells/uL (< 10 X 10^3); TNC,Body Fluid 1242 cells/uL (< 1000)
[2022-01-02] VITALS (11 sets, daily range): BP systolic 140–158; BP diastolic 79–89; PULSE 67–90; RESP 18–20; TEMP 36.5–37.4; O2SAT 93–99; BMI 28.8
--- NOTE | 2022-01-02 06:04 | PC.NURSE ---
Addendum entered by Amaris Zepeda RN 01/02/22 06:53: Dressing to midline incision changed, old packing and dressing removed with noted greenish/blooding drainage on old dressing, wounds packed with kerlix, abd pads placed with paper tape to secure, pt tolerated with some mild pain noted, old j/p site cleansed with chloraprep and kerlix dressing placed and secured with tape. Original Note: Patient a&o yet confused on time of day at times. Patient has been prompted to turn q2hrs with compliance. Patient remains on 3l nc sating above 90%. ABD is tender and firm active bowl sounds noted. Midline dressing is CDI. Colostomy and ileostomy in place- stomas beefy red. Accordion drain inplace RUQ, greenish drainage noted 15 ml out this shift. Left thoracentesis site is CDI.
--- NOTE | 2022-01-02 07:00 | CT_ITS ---
FINAL REPORT TECHNIQUE: After the administration of oral and intravenous contrast, axial images were obtained through the abdomen and pelvis by computed tomography. The study was performed with techniques to keep radiation dose as low as reasonably achievable, (ALARA). Individual dose reduction techniques using automated exposure control or adjustment of mA and/or kV according to the patient's size were employed. CLINICAL HISTORY: Postoperative abdominal fluid collections FINDINGS: Abdomen: There are small right and moderate left pleural effusions. A left pleural catheter is identified. There is bilateral lower lobe atelectasis. The liver is normal in size and attenuation. There is gallbladder wall thickening with a small amount of pericholecystic fluid. Bilateral anasarca is identified, left greater than right. There is bilateral adrenal gland enlargement, may represent adenomas versus metastases. There are small bilateral nonobstructing renal stones. A small amount of fluid is seen adjacent to the stomach antrum. The spleen is unremarkable. The adrenals are normal. The pancreas is unremarkable. Note is made of bilateral ostomies. There is edema of the omentum. Right abdomen catheter is identified with a small amount of fluid adjacent to it. No other intraabdominal/intrapelvic fluid collection is identified. Pelvis: The appendix is not identified. There are postoperative changes of the rectosigmoid junction with presumed Magan's pouch. There is an anterior pelvic wall defect. A small amount of air seen in the urinary bladder, may be iatrogenic. IMPRESSION: Small amount of fluid adjacent to the stomach antrum. Right abdomen catheter with a small amount of fluid adjacent to it. No sizable intra-abdominal fluid collection is identified. Gallbladder wall thickening the small amount of pericholecystic fluid. Bilateral adrenal gland enlargement, adenomas versus metastases. Bilateral nonobstructing renal stones. Reviewed, Interpreted and Dictated by Arsenio Garcias III, MD Transcribed by Minal Loving Authenticated and . [facility]
--- NOTE | 2022-01-02 07:09 | P.PN_ITS ---
Subjective Patient reports: no new complaints, feels better Narrative: Feels like he is breathing a little better after thoracentesis yesterday. Progress Note: A&P (1) Mass of colon Status: Acute (2) Dehisced intestinal anastomosis Status: Acute (3) Colitis Status: Acute (4) Hypokalemia Status: Acute (5) Atelectasis Status: Acute (6) Physical deconditioning Status: Acute Assessment and plan: Continue physical therapy. Likely discharge to short-term rehab facility once stable from a medical standpoint. (7) Postoperative ileus Status: Acute (8) Abdominal fluid collection Status: Acute Assessment and plan: Repeat CT scan today. Continue antibiotics for now. (9) Open wound anterior abdominal wall Status: Acute Exam Vital signs and Labs for Last 24 Hours: Temp Pulse Resp BP Pulse Ox 99.3 F 79 18 140/84 99 01/02/22 03:43 01/02/22 04:00 01/02/22 03:43 01/02/22 03:43 01/02/22 03:43 Laboratory Results - last 24 hr 01/01/22 07:44: WBC 15.9 H, RBC 3.53 L, Hgb 10.1 L, Hct 31.8 L, MCV 90.1, MCH 28.7, MCHC 31.8, RDW 13.4, Plt Count 667 H, MPV 7.5, Neut % (Auto) 77.6, Lymph % (Auto) 12.1, [place] % (Auto) 8.1, Eos % (Auto) 1.7, Baso % (Auto) 0.6, Neut # (Auto) 12.4 H, Lymph # (Auto) 1.9, [place] # (Auto) 1.3 H, Eos # (Auto) 0.3, Baso # (Auto) 0.1, Total Counted 100, Neutrophils % (Manual) 76, Lymphocytes % (Manual) 19, Monocytes % (Manual) 5, Platelet Estimate Marked increase, Hypochromasia 1+, Anisocytosis 1+ 01/01/22 07:44: Sodium 134 L, Potassium 3.3 L, Chloride 99, Carbon Dioxide 34 H, Anion Gap 4.3 L, BUN 7 L, Creatinine 0.50 L, Estimated Creat Clear 236, Estimated GFR 174, Est GFR ( Amer) 210, Glucose 98, Calcium 10.2 01/01/22 07:44: Lactate Dehydrogenase 162 L 01/01/22 : Fluid Source Thoracentesis fluid, Fluid Volume 720, Fluid Appearance Cloudy, Fluid RBC (Auto) < 10, Fld Tot Nucleated Cell 1242, Fld Polynuclear WBCs % 38, Fld Mononuclear WBCs % 62 I & O for Last 24 hours: Intake & Output 12/30/21 12/31/21 01/01/22 01/02/22 11:59 11:59 11:59 11:59 Intake Total 1537 / 1537 3167 / 3167 1172 / 1172 480 / 480 Output Total 2360 / 2360 1950 / 1950 2300 / 2300 1974 / 1974 Balance -823 / -823 1217 / 1217 -1128 / -1128 -1495 / -1495 Weight 214 lb 1.6 oz 218 lb 6.4 oz 214 lb 14.4 oz 205 lb 8 oz Microbiology Reports for the Last 24 Hours: Microbiology 01/01/22 Unknown Pleural Fluid - Pleura Gram Stain - Final - Constitutional no acute distress - *Routine Respiratory Exam Absent: respiratory distress - *Routine Cardiovascular Exam Absent: tachycardia - *Routine Abdominal Exam Comments: Unchanged
--- NOTE | 2022-01-02 07:25 | XR_ITS ---
FINAL REPORT CLINICAL HISTORY: Status post thoracentesis COMPARISON: 12/31/2021 FINDINGS: A single portable view of the chest was obtained. The heart size and pulmonary vascularity are within normal limits. The mediastinum is within normal limits. There are persistent bilateral pulmonary opacities which may represent pneumonia or atelectasis. There is a small left pleural effusion. No pneumothorax is identified. The bony thorax is intact. IMPRESSION: Persistent bilateral pneumonia or atelectasis. Small left pleural effusion. Reviewed, Interpreted and Dictated by Arsenio Garcias III, MD Transcribed by Lawanda Conley Authenticated and [facility]
--- NOTE | 2022-01-02 09:25 | HMH.PULMPN ---
Internal Medicine - PN: Subj *Date: 01/02/22 *Time: 10:33 Interval history: No acute respiratory vents overnight. Patient admits improving respiratory symptoms. Exam - Constitutional Constitutional:: Absent: no acute distress, comfortable - HENMT Exam HENMT: Present: normocephalic - Eye Exam Eyes:: Present: normal appearance both eyes and related structures - Neck Exam Neck:: Present: normal visual inspection - Respiratory Exam Respiratory:: Present: able to speak in complete sentences, no respiratory distress, decreased breath sounds. Absent: accessory muscle use, wheezing - Cardiovascular Exam Cardiac:: Present: S1, S2 - GI Exam GI:: Present: soft. Absent: normal to inspection - Skin Exam Skin: Present: warm, no rash - Neurological Exam Neurological: Present: alert, awake - Extremities Exam Extremities: Present: no cyanosis, no clubbing, no edema Assessment and Plan (1) Mass of colon Status: Acute Category: Medical Code(s): K63.89 - Other specified diseases of intestine (2) Dehisced intestinal anastomosis Status: Acute Category: Medical Code(s): K91.89 - Other postprocedural complications and disorders of digestive system; T81.32XA - Disruption of internal operation (surgical) wound, not elsewhere classified, initial encounter (3) Colitis Status: Acute Category: Medical Code(s): K52.9 - Noninfective gastroenteritis and colitis, unspecified (4) Hypokalemia Status: Acute Category: Medical Code(s): E87.6 - Hypokalemia (5) Atelectasis Status: Acute Category: Medical Code(s): J98.11 - Atelectasis (6) Physical deconditioning Status: Acute Category: Medical Code(s): R53.81 - Other malaise (7) Postoperative ileus Status: Acute Category: Medical Code(s): K91.89 - Other postprocedural complications and disorders of digestive system; K56.7 - Ileus, unspecified (8) Abdominal fluid collection Status: Acute Category: Medical Code(s): R18.8 - Other ascites (9) Open wound anterior abdominal wall Status: Acute Category: Medical Code(s): S31.109A - Unspecified open wound of abdominal wall, unspecified quadrant without penetration into peritoneal cavity, initial encounter - Assessment and plan all Dx Assessment and Plan for all problems:: #Left pleural effusion: #Hospital-acquired pneumonia: 51 year-old presented with abdominal problems noted to have 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 Patient hospital also complicated by subhepatic abscess status post drain with cultures growing Pseudomonas and patient has been receiving Zosyn. Worsening leukocytosis on 712 improving after draining and appropriate antibiotics. Patient noted to have slight worsening O2 requirements and resp distress and chest x-ray from 12/29 and 12/31 showed left-sided pleural effusion and left lower lobe pneumonia and pulmonary was called for further management. Patient CT abdomen from 12/25/2021 showed bilateral lower lobe atelectasis, left lower lobe airspace disease and bilateral small effusions lt> rt and patient has been receiving Zosyn which will cover for hospital-acquired pneumonia. Leukocytosis improving. Bilateral lower extremity 1+ edema noted. Received 20mg IV lasix on 12/31/2021 Interval Update: s/p thoracentesis 720 ml Chest x-ray continue to have bilateral lower lobe airspace disease likely from dependent atelectasis. Physical therapy, out of bed to chair and incentive spirometry will definitely help improve this patient's current respiratory distress and avoid further pulmonary complications Plan: -Continue oxygen supplementation to maintain O2 saturation goal of 90% and above, weaned to room air this morning saturations maintained at 92% above. -F/U final pleural fluid results -Incentive spirometry -Continue Zosyn x7 days for possible hospital-acquired pneumonia
--- NOTE | 2022-01-02 12:58 | PC.NURSE ---
received report on pt. pt in bed resting at this time.
--- NOTE | 2022-01-02 15:13 | HMH.ACPN2 ---
Internal Medicine - PN: Subj *Date: 01/02/22 *Time: 15:13 Interval history: FAMILY MEDICINE NOTE: I saw and examined the patient this morning. His slow progress continues. I took the liberty of consulting pulmonary. Dr. Maier saw him yesterday and removed 750ml of fluid from the left chest. The patient states that his breathing has subsequently improved. He has leg edema today, but his weight is down. Exam Vital signs and Labs for Last 24 Hours: Temp Pulse Resp BP Pulse Ox 98.1 F 82 19 146/80 H 95 01/02/22 15:08 01/02/22 15:08 01/02/22 15:08 01/02/22 15:08 01/02/22 15:08 Laboratory Results - last 24 hr 01/01/22 : Fluid Source Thoracentesis fluid, Fluid Volume 720, Fluid Appearance Cloudy, Fluid RBC (Auto) < 10, Fld Tot Nucleated Cell 1242, Fld Polynuclear WBCs % 38, Fld Mononuclear WBCs % 62 I & O for Last 24 hours: Intake & Output 12/31/21 01/01/22 01/02/22 01/03/22 11:59 11:59 11:59 11:59 Intake Total 3167 / 3167 1172 / 1172 480 / 480 Output Total 1950 / 1950 2300 / 2300 2225 / 2225 Balance 1217 / 1217 -1128 / -1128 -1745 / -1745 Weight 218 lb 6.4 oz 214 lb 14.4 oz 205 lb 8 oz Microbiology Reports for the Last 24 Hours: Microbiology 01/01/22 Unknown Pleural Fluid - Pleura Gram Stain - Final 01/01/22 Unknown Pleural Fluid - Pleura Body Fluid Culture - Preliminary NO GROWTH AFTER 24 HOURS - Constitutional no acute distress - *Routine HEENT Exam Head: Present: normocephalic Eye: Present: EOMI, PERRL ENT: Present: mucous membranes moist - *Routine Neck Exam Present: supple. Absent: JVD, lymphadenopathy - *Routine Respiratory Exam Present: decreased breath sounds (at bases), CTA bilaterally - *Routine Cardiovascular Exam Present: RRR - *Routine Abdominal Exam Present: tenderness, ostomy - *Routine Extremities Exam Present: edema (2+) - *Routine Skin Exam Present: warm. Absent: rash - *Routine Neurological Exam Present: alert, oriented X3 Assessment and Plan (1) Mass of colon Status: Acute Category: Medical Code(s): K63.89 - Other specified diseases of intestine (2) Dehisced intestinal anastomosis Status: Acute Category: Medical Code(s): K91.89 - Other postprocedural complications and disorders of digestive system; T81.32XA - Disruption of internal operation (surgical) wound, not elsewhere classified, initial encounter (3) Colitis Status: Acute Category: Medical Code(s): K52.9 - Noninfective gastroenteritis and colitis, unspecified (4) Hypokalemia Status: Acute Category: Medical Code(s): E87.6 - Hypokalemia (5) Atelectasis Status: Acute Category: Medical Code(s): J98.11 - Atelectasis (6) Physical deconditioning Status: Acute Category: Medical Code(s): R53.81 - Other malaise (7) Postoperative ileus Status: Acute Category: Medical Code(s): K91.89 - Other postprocedural complications and disorders of digestive system; K56.7 - Ileus, unspecified (8) Abdominal fluid collection Status: Acute Category: Medical Code(s): R18.8 - Other ascites (9) Open wound anterior abdominal wall Status: Acute Category: Medical Code(s): S31.109A - Unspecified open wound of abdominal wall, unspecified quadrant without penetration into peritoneal cavity, initial encounter - Assessment and plan all Dx Assessment and Plan for all problems:: Continue present care with attention to edema and fluid balance.
[2022-01-02 17:08] LABS: Basophils # 0.1 K/mm3 (0-0.2); Basophils % 0.5 % (0.1-2.0); Eosinophils # 0.2 K/mm3 (0.0-0.4); Eosinophils % 1.4 % (0.1-12.0); Hematocrit 35.3 % (42.0-52.0); Hemoglobin 11.2 g/dL (14.1-18.0); Lymphocytes # 1.7 K/mm3 (0.7-4.5); Lymphocytes % 14.4 % (10-50); Mean Corpuscular HGB Conc 31.7 g/dL (31.8-35.4); Mean Corpuscular Hemoglobin 29.4 pg (27.0-31.2); Mean Corpuscular Volume 92.8 fl (80-94); Monocytes # 1.2 K/mm3 (0.1-1.0); Monocytes % 10.5 % (1.7-9.3); Neutrophils # 8.4 K/mm3 (1.8-7.8); Neutrophils % 73.1 % (37.0-80.0); Platelet Count 617 K/mm3 (142-424); Red Blood Count 3.81 M/mm3 (4.60-6.20); Red Cell Distribution Width 13.6 % (11.5-17.5); White Blood Count 11.4 K/mm3 (4.8-10.8)
[2022-01-02 17:13] LABS: Anion Gap 6.1 mEq/L (5-15); Blood Urea Nitrogen 8 mg/dl (9-20); Calcium 9.9 mg/dl (8.4-10.2); Carbon Dioxide 31 mmol/L (22.0-30.0); Chloride 100 mmol/L (98-107); Creatinine Clearance Estimated 225 mL/min (50-200); Estimated Glomerular Filt Rate 174 ml/min (>60); GFR (African American) 210 ML/MIN (>60); Glucose 109 mg/dl (74-100); Potassium 4.1 mmoL/L (3.5-5.1); Sodium 133 mmol/L (136-145)
--- NOTE | 2022-01-02 18:03 | PC.NURSE ---
pt has slept majority of shift. 22g lv hand with LR @100. bland diet, tolerating well as of now. pt has ate <25% of meals today. diminished lung sounds. alert X4. O2 3L NC. using urinal independently. midline incision with dsg, ileostomy, colostomy. ileostomy and midline dsg changed at 1800 due to ileostomy leak. stage 1 on coccyx, pt has turned some t/o shift but will roll self back to supine position. mother in law at bedside, call bonilla within reach, no concerns at this time.
[2022-01-03] VITALS (9 sets, daily range): BP systolic 140–166; BP diastolic 85–93; PULSE 69–83; RESP 18–20; TEMP 36.4–37.6; O2SAT 92–97; BMI 29.2
--- NOTE | 2022-01-03 04:35 | PC.NURSE ---
Pt is alert and oriented x4, pt has been sleeping most of the night, complained of pain one time, treated prn per aug. Pt is 2L NC O2 sat >95%. Right lung sounds clear, left lung sounds diminished. Abdomen is tender, active bowel sounds. Colostomy and ileostomy noted, stomas red. Accordian drain in place, draining greenish fluid. Thoracentesis dressing CDI. Midline dressing changed, removed old packing, greenish drainage noted, repacked wounds with kerlix, abd pad over that with tape to secure on top and bottom. Cleaned area where EILEEN drains were removed and applied kerlix over with tape to secure. Pt tolerated dressing change well.
[2022-01-03 05:18] LABS: POC Glucose,Bedside 83 (70-110)
[2022-01-03 07:04] LABS: Basophils % 0.3 % (0.1-2.0); Eosinophils # 0.3 K/mm3 (0.0-0.4); Eosinophils % 2.2 % (0.1-12.0); Lymphocytes # 1.5 K/mm3 (0.7-4.5); Lymphocytes % 12.8 % (10-50); Mean Corpuscular HGB Conc 31.4 g/dL (31.8-35.4); Mean Corpuscular Hemoglobin 28.7 pg (27.0-31.2); Mean Corpuscular Volume 91.6 fl (80-94); Mean Platelet Volume 7.7 fl (7.4-10.4); Neutrophils # 8.7 K/mm3 (1.8-7.8); Neutrophils % 75.7 % (37.0-80.0); Platelet Count 596 K/mm3 (142-424); Red Blood Count 3.49 M/mm3 (4.60-6.20); Red Cell Distribution Width 13.8 % (11.5-17.5); White Blood Count 11.5 K/mm3 (4.8-10.8)
[2022-01-03 07:11] LABS: Alanine Aminotransferase 25 U/L (12-78); Albumin Level 2.3 g/dl (3.5-5.0); Albumin/Globulin Ratio 0.6 (1.1-1.8); Alkaline Phosphatase 139 U/L (38-126); Anion Gap 2.5 mEq/L (5-15); Aspartate Amino Transferase 53 U/L (17-59); Bilirubin,Total 0.4 mg/dl (0.2-1.3); Blood Urea Nitrogen 7 mg/dl (9-20); Carbon Dioxide 34 mmol/L (22.0-30.0); Chloride 101 mmol/L (98-107); Creatinine Clearance Estimated 191 mL/min (50-200); Estimated Glomerular Filt Rate 141 ml/min (>60); GFR (African American) 171 ML/MIN (>60); Globulin 3.6 g/dL (1.3-3.2); Glucose 106 mg/dl (74-100); Potassium 3.5 mmoL/L (3.5-5.1); Sodium 134 mmol/L (136-145); Total Protein,Serum 5.9 g/dl (6.3-8.2)
--- NOTE | 2022-01-03 08:23 | HMH.GSPN ---
Subjective Narrative: He states he feels about the same overall . Progress Note: A&P (1) Mass of colon Status: Acute (2) Dehisced intestinal anastomosis Status: Acute (3) Colitis Status: Acute (4) Hypokalemia Status: Acute (5) Atelectasis Status: Acute (6) Physical deconditioning Status: Acute Assessment and plan: Continue physical therapy. Rehab placement discussed with discharge planning. Once stable from a medical/pulmonary standpoint the patient will likely be discharged for short-term rehab. (7) Postoperative ileus Status: Acute (8) Abdominal fluid collection Status: Acute Assessment and plan: Essentially no drainage from right upper quadrant IR catheter noted over the past 24 to 48 hours. No persistent collection noted per CT scan. Remove right upper quadrant IR drain Likely discontinue antibiotics after 1 additional dose status post IR drain removal (9) Open wound anterior abdominal wall Status: Acute Assessment and plan: Continue dressing changes Exam Vital signs and Labs for Last 24 Hours: Temp Pulse Resp BP Pulse Ox 99.1 F 80 20 140/85 97 01/03/22 03:28 01/03/22 04:00 01/03/22 03:28 01/03/22 03:28 01/03/22 03:28 Laboratory Results - last 24 hr 01/02/22 16:30: WBC 11.4 H D, RBC 3.81 L, Hgb 11.2 L, Hct 35.3 L, MCV 92.8, MCH 29.4, MCHC 31.7 L, RDW 13.6, Plt Count 617 H, MPV 8.0, Neut % (Auto) 73.1, Lymph % (Auto) 14.4, [place] % (Auto) 10.5 H, Eos % (Auto) 1.4, Baso % (Auto) 0.5, Neut # (Auto) 8.4 H, Lymph # (Auto) 1.7, [place] # (Auto) 1.2 H, Eos # (Auto) 0.2, Baso # (Auto) 0.1 01/02/22 16:30: Sodium 133 L, Potassium 4.1 D, Chloride 100, Carbon Dioxide 31 H, Anion Gap 6.1, BUN 8 L, Creatinine 0.50 L, Estimated Creat Clear 225, Estimated GFR 174, Est GFR ( Amer) 210, Glucose 109 H, Calcium 9.9 01/03/22 03:49: POC Glucose 83 01/03/22 06:34: WBC 11.5 H, RBC 3.49 L, Hgb 10.0 L D, Hct 32.0 L, MCV 91.6, MCH 28.7, MCHC 31.4 L, RDW 13.8, Plt Count 596 H, MPV 7.7, Neut % (Auto) 75.7, Lymph % (Auto) 12.8, [place] % (Auto) 9.0, Eos % (Auto) 2.2, Baso % (Auto) 0.3, Neut # (Auto) 8.7 H, Lymph # (Auto) 1.5, [place] # (Auto) 1.0, Eos # (Auto) 0.3, Baso # (Auto) 0.0 01/03/22 06:34: Sodium 134 L, Potassium 3.5, Chloride 101, Carbon Dioxide 34 H, Anion Gap 2.5 L, BUN 7 L, Creatinine 0.60 L, Estimated Creat Clear 191, Estimated GFR 141, Est GFR ( Amer) 171, Glucose 106 H, Calcium 10.0, Total Bilirubin 0.4, AST 53, ALT 25, Alkaline Phosphatase 139 H, Total Protein 5.9 L, Albumin 2.3 L, Globulin 3.6 H, Albumin/Globulin Ratio 0.6 L I & O for Last 24 hours: Intake & Output 12/31/21 01/01/22 01/02/22 01/03/22 11:59 11:59 11:59 11:59 Intake Total 3167 / 3167 1172 / 1172 480 / 480 1363 / 1363 Output Total 1950 / 1950 2300 / 2300 2225 / 2225 710 / 710 Balance 1217 / 1217 -1128 / -1128 -1745 / -1745 653 / 653 Weight 218 lb 6.4 oz 214 lb 14.4 oz 205 lb 8 oz 209 lb 1 oz Microbiology Reports for the Last 24 Hours: Microbiology 01/01/22 15:55 Nose - Nose MRSA Culture - Final No growth. 01/01/22 Unknown Pleural Fluid - Pleura Gram Stain - Final 01/01/22 Unknown Pleural Fluid - Pleura Body Fluid Culture - Preliminary NO GROWTH AFTER 24 HOURS Radiology Reports for the Last 24 Hours: Repeat CT abdomen/pelvis from yesterday (January 02): IMPRESSION: Small amount of fluid adjacent to the stomach antrum. Right abdomen catheter with a small amount of fluid adjacent to it. No sizable intra-abdominal fluid collection is identified. Gallbladder wall thickening the small amount of pericholecystic fluid. Bilateral adrenal gland enlargement, adenomas versus metastases. Bilateral nonobstructing renal stones. - Constitutional no acute distress - *Routine Respiratory Exam Absent: respiratory distress - *Routine Cardiovascular Exam Absent: tachycardia - *Routine Abdominal Exam Comments:
--- NOTE | 2022-01-03 09:32 | HMH.PULMPN ---
Internal Medicine - PN: Subj *Date: 01/03/22 *Time: 11:40 Interval history: No acute respiratory events overnight Exam - Constitutional Constitutional:: Absent: no acute distress, comfortable - HENMT Exam HENMT: Present: normocephalic - Eye Exam Eyes:: Present: normal appearance both eyes and related structures - Neck Exam Neck:: Present: normal visual inspection - Respiratory Exam Respiratory:: Present: able to speak in complete sentences, no respiratory distress, crackles. Absent: wheezing - Cardiovascular Exam Cardiac:: Present: S1, S2 - GI Exam GI:: Present: soft - Skin Exam Skin: Present: warm - Neurological Exam Neurological: Present: alert - Extremities Exam Extremities: Present: no cyanosis, no clubbing - Psychiatric Exam Psychiatric: Present: normal affect Assessment and Plan (1) Mass of colon Status: Acute Category: Medical Code(s): K63.89 - Other specified diseases of intestine (2) Dehisced intestinal anastomosis Status: Acute Category: Medical Code(s): K91.89 - Other postprocedural complications and disorders of digestive system; T81.32XA - Disruption of internal operation (surgical) wound, not elsewhere classified, initial encounter (3) Colitis Status: Acute Category: Medical Code(s): K52.9 - Noninfective gastroenteritis and colitis, unspecified (4) Hypokalemia Status: Acute Category: Medical Code(s): E87.6 - Hypokalemia (5) Atelectasis Status: Acute Category: Medical Code(s): J98.11 - Atelectasis (6) Physical deconditioning Status: Acute Category: Medical Code(s): R53.81 - Other malaise (7) Postoperative ileus Status: Acute Category: Medical Code(s): K91.89 - Other postprocedural complications and disorders of digestive system; K56.7 - Ileus, unspecified (8) Abdominal fluid collection Status: Acute Category: Medical Code(s): R18.8 - Other ascites (9) Open wound anterior abdominal wall Status: Acute Category: Medical Code(s): S31.109A - Unspecified open wound of abdominal wall, unspecified quadrant without penetration into peritoneal cavity, initial encounter - Assessment and plan all Dx Assessment and Plan for all problems:: #Left pleural effusion: #Hospital-acquired pneumonia: 51 year-old presented with abdominal problems noted to have 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 Patient hospital also complicated by subhepatic abscess status post drain with cultures growing Pseudomonas and patient has been receiving Zosyn. Worsening leukocytosis on 712 improving after draining and appropriate antibiotics. Patient noted to have slight worsening O2 requirements and resp distress and chest x-ray from 12/29 and 12/31 showed left-sided pleural effusion and left lower lobe pneumonia and pulmonary was called for further management. Patient CT abdomen from 12/25/2021 showed bilateral lower lobe atelectasis, left lower lobe airspace disease and bilateral small effusions lt> rt and patient has been receiving Zosyn which will cover for hospital-acquired pneumonia. Leukocytosis improving. Bilateral lower extremity 1+ edema noted. Received 20mg IV lasix on 12/31/2021 Thoracentesis with removal of 720 cc. Cultures negative so far. Pleural fluid studies still pending. Interval update No acute events overnight. Physical therapy, out of bed to chair and incentive spirometry will definitely help improve this patient's current respiratory distress and avoid further pulmonary complications Repeat chest x-ray continue to show right lower lobe infiltrate. No worsening respiratory status. Afebrile. Leukocytosis improving. Plan: -Incentive spirometry -Continue oxygen supplementation NEEDED to maintain O2 saturation goal of 90% and above, weaned to room air this morning saturations maintained at 92% above. -F/U final pleural fluid results -N
--- NOTE | 2022-01-03 10:45 | SW/DCPLANNER ---
Addendum entered by [facility] 01/10/22 14:19: Jeannette Mcdaniels stated that MD reviewed updated notes and MD prefers another day to stabilize WBC. Addendum entered by [facility] 01/10/22 09:30: Updated patient information has been faxed to Jeannette Mcdaniels this AM. Addendum entered by [facility] 01/09/22 13:19: [facility] Mcdaniels is still reviewing patient information at this time: due to WBC increase they do not believe patient is medically stable for discharge. Addendum entered by [facility] 01/08/22 15:22: Jeannette has stated that patient has been approved and should be able to admit tomorrow. Addendum entered by [facility] 01/08/22 09:23: Updated patient information has been faxed to Jeannette Mcdaniels. Addendum entered by [facility] 01/05/22 14:42: Per Jeannette patient has been accepted to [facility] pending precert. Addendum entered by [facility] 01/05/22 09:57: Updated patient information has been faxed to Jeannette Mcdaniels at this time. Addendum entered by [facility] 01/04/22 15:51: Jeannette Mcdaniels is currently reviewing patient information. Addendum entered by [facility] 01/04/22 11:22: Patient is now agreeable to placement at [facility] for acute rehab. Patient stated that his sister in law informed him last night that she did not feel like she would be able to take care of him at home. Patient information has been faxed to [facility] at this time. Addendum entered by [facility] 01/04/22 10:47: David Mcdonnell stated that starter kit is being delivered to patient's house today. Original Note: I spoke with this patient regarding discharge plans. Patient is adamant to return home with family members. Patient stated that he has an RN and PHYSICAL SCIENCE TEACHER that resides in the home with him. I explained the options of placement under Medicaid pending and patient is not agreeable at this time. I will attempt to set patient up with home health services if available due to insurance at time of discharge. Patient information has been faxed to [employer] for Ostomy supplies to be delivered to patient's home. Patient may discharge home tomorrow.
[2022-01-03 12:17] LABS: Albumin, Body Fluid 1.2 g/dL (Not Estab.); Glucose, Body Fluid 101 mg/dL (.); LD, Body Fluid 216 IU/L (.); Protein, Body Fluid 3.4 g/dL (.)
--- NOTE | 2022-01-03 17:40 | PC.NURSE ---
Addendum entered by Irene Diaz RN 01/03/22 18:09: ileostomy output not 250. ileostomy output 120ml Addendum entered by Irene Diaz RN 01/03/22 17:52: midline incision has dsg cdi. ileostomy output 250ml, nothing out of colostomy. Original Note: pt alert X3, now on RA, lungs sounds clear and diminished. 20g in LT HAND with LR @ 50.no pain reported this shift. pt has been asleep most of day, ref to get out of bed. ate <25% for all meals and has only turned once in bed. family was at bedside tonight trying to motivate pt, family also brought in mashed pot and pt ate 100%. both drains on rt and lt side removed today. call bonilla and personal items within reach.
[2022-01-04] VITALS (10 sets, daily range): BP systolic 154–181; BP diastolic 89–98; PULSE 67–90; RESP 17–18; TEMP 36.4–37.1; O2SAT 89–94; BMI 29.2
--- NOTE | 2022-01-04 04:05 | PC.NURSE ---
PT. HAS NOT C/O N/V, DIZZINESS, PAIN OR SOA. PT. ILEOSTOMY SCANT DARK BROWN LIQUID DRAINAGE; COLOSTOMY HAD SOFT BM AT BEGINNING OF SHIFT.
--- NOTE | 2022-01-04 06:01 | PC.NURSE ---
DSG CHANGE TO TWO AREAS ON ABD. TOP SITE APPROX. 3.5 CM IN DEPTH AND 2.5 CM IN LENGTH, BOTTOM SITE 2.5 CM IN DEPTH AND 3 CM IN LENGTH. MD MARCI AT BEDSIDE. GREEN, THICK DRAINAGE NOTED. PACKED WITH KERLEX, COVERED WITH ABD PAD AND TAPE. PT. TOLERATED WELL.
--- NOTE | 2022-01-04 06:29 | P.PN_ITS ---
Subjective Patient reports: no new complaints Progress Note: A&P (1) Mass of colon Status: Acute (2) Dehisced intestinal anastomosis Status: Acute (3) Colitis Status: Acute (4) Hypokalemia Status: Acute (5) Atelectasis Status: Acute (6) Physical deconditioning Status: Acute Assessment and plan: Continue physical therapy Rehabilitation placement (discharge) when stable from an overall medical standpoint and pulmonary standpoint (7) Postoperative ileus Status: Acute (8) Abdominal fluid collection Status: Acute Assessment and plan: No significant collection noted on most recent CT scan All drains have now been removed and antibiotics have been completed (9) Open wound anterior abdominal wall Status: Acute Assessment and plan: Some necrotic slough in base of wound. Bedside debridement of wound base later today Exam Vital signs and Labs for Last 24 Hours: Temp Pulse Resp BP Pulse Ox 98.1 F 82 18 161/89 H 90 L 01/04/22 04:00 01/04/22 04:00 01/04/22 04:00 01/04/22 04:00 01/04/22 04:00 Laboratory Results - last 24 hr 01/01/22 : Fluid Glucose 101, Fluid Total Protein 3.4, Fluid Albumin 1.2, Fluid LDH 216 01/03/22 06:34: WBC 11.5 H, RBC 3.49 L, Hgb 10.0 L D, Hct 32.0 L, MCV 91.6, MCH 28.7, MCHC 31.4 L, RDW 13.8, Plt Count 596 H, MPV 7.7, Neut % (Auto) 75.7, Lymph % (Auto) 12.8, [place] % (Auto) 9.0, Eos % (Auto) 2.2, Baso % (Auto) 0.3, Neut # (Auto) 8.7 H, Lymph # (Auto) 1.5, [place] # (Auto) 1.0, Eos # (Auto) 0.3, Baso # (Auto) 0.0 01/03/22 06:34: Sodium 134 L, Potassium 3.5, Chloride 101, Carbon Dioxide 34 H, Anion Gap 2.5 L, BUN 7 L, Creatinine 0.60 L, Estimated Creat Clear 191, Estimated GFR 141, Est GFR ( Amer) 171, Glucose 106 H, Calcium 10.0, Total Bilirubin 0.4, AST 53, ALT 25, Alkaline Phosphatase 139 H, Total Protein 5.9 L, Albumin 2.3 L, Globulin 3.6 H, Albumin/Globulin Ratio 0.6 L I & O for Last 24 hours: Intake & Output 01/01/22 01/02/22 01/03/22 01/04/22 11:59 11:59 11:59 11:59 Intake Total 1172 / 1172 480 / 480 4143 / 4143 1114 / 1114 Output Total 2300 / 2300 2225 / 2225 1335 / 1335 1125 / 1125 Balance -1128 / -1128 -1745 / -1745 2808 / 2808 -11 / -11 Weight 214 lb 14.4 oz 205 lb 8 oz 209 lb 1 oz 209 lb 1 oz Microbiology Reports for the Last 24 Hours: Microbiology 01/01/22 Unknown Pleural Fluid - Pleura Gram Stain - Final 01/01/22 Unknown Pleural Fluid - Pleura Body Fluid Culture - Preliminary NO GROWTH AFTER 48 HOURS 01/01/22 15:55 Nose - Nose MRSA Culture - Final No growth. - Constitutional no acute distress - *Routine Respiratory Exam Absent: respiratory distress - *Routine Cardiovascular Exam Absent: tachycardia - *Routine Abdominal Exam Comments: Some necrotic slough along base of wound
--- NOTE | 2022-01-04 09:39 | HMH.PULMPN ---
Internal Medicine - PN: Subj *Date: 01/04/22 *Time: 16:31 Interval history: No acute respiratory vents overnight. Exam - Constitutional Constitutional:: Present: no acute distress, comfortable - HENMT Exam HENMT: Present: normocephalic - Eye Exam Eyes:: Present: normal appearance both eyes and related structures - Neck Exam Neck:: Present: normal visual inspection - Respiratory Exam Respiratory:: Present: able to speak in complete sentences. Absent: no respiratory distress, wheezing - Cardiovascular Exam Cardiac:: Present: S1, S2 - GI Exam GI:: Present: soft - Skin Exam Skin: Present: warm, no rash - Neurological Exam Neurological: Present: alert, awake - Extremities Exam Extremities: Present: no cyanosis, no clubbing, no edema Assessment and Plan (1) Mass of colon Status: Acute Category: Medical Code(s): K63.89 - Other specified diseases of intestine (2) Dehisced intestinal anastomosis Status: Acute Category: Medical Code(s): K91.89 - Other postprocedural complications and disorders of digestive system; T81.32XA - Disruption of internal operation (surgical) wound, not elsewhere classified, initial encounter (3) Colitis Status: Acute Category: Medical Code(s): K52.9 - Noninfective gastroenteritis and colitis, unspecified (4) Hypokalemia Status: Acute Category: Medical Code(s): E87.6 - Hypokalemia (5) Atelectasis Status: Acute Category: Medical Code(s): J98.11 - Atelectasis (6) Physical deconditioning Status: Acute Category: Medical Code(s): R53.81 - Other malaise (7) Postoperative ileus Status: Acute Category: Medical Code(s): K91.89 - Other postprocedural complications and disorders of digestive system; K56.7 - Ileus, unspecified (8) Abdominal fluid collection Status: Acute Category: Medical Code(s): R18.8 - Other ascites (9) Open wound anterior abdominal wall Status: Acute Category: Medical Code(s): S31.109A - Unspecified open wound of abdominal wall, unspecified quadrant without penetration into peritoneal cavity, initial encounter - Assessment and plan all Dx Assessment and Plan for all problems:: #Transudative Left pleural effusion: #Hospital-acquired pneumonia: 51 year-old presented with abdominal problems noted to have 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 Patient hospital also complicated by subhepatic abscess status post drain with cultures growing Pseudomonas and patient has been receiving Zosyn. Worsening leukocytosis on 712 improving after draining and appropriate antibiotics. Patient noted to have slight worsening O2 requirements and resp distress and chest x-ray from 12/29 and 12/31 showed left-sided pleural effusion and left lower lobe pneumonia and pulmonary was called for further management. Patient CT abdomen from 12/25/2021 showed bilateral lower lobe atelectasis, left lower lobe airspace disease and bilateral small effusions lt> rt and patient has been receiving Zosyn which will cover for hospital-acquired pneumonia. Leukocytosis improving. Bilateral lower extremity 1+ edema noted. Received 20mg IV lasix on 12/31/2021 Thoracentesis with removal of 720 cc. Transudative pleural effusion likely from volume overload. Pleural fluid cultures negative. Chest tube removed yesterday. Interval update No acute events overnight. Physical therapy, out of bed to chair and incentive spirometry will definitely help improve this patient's current respiratory distress and avoid further pulmonary complications Chest x-ray continue to show right lower lobe infiltrate. No worsening respiratory status. Afebrile. Leukocytosis improving. Plan: -Incentive spirometry -Activity as tolerated -Continue oxygen supplementation NEEDED to maintain O2 saturation goal of 90% and above -DuoNebs every 6 hours on as-needed basis #Thank you for
--- NOTE | 2022-01-04 11:31 | DIET.NUTRFU ---
Spoke to patient today about his poor meal intake. Yesterday he was noted to refuse both lunch and dinner. Family brought in some [employer] last night and did eat 25% of the chicken and 100% mashed potatoes. This morning he ate less than 50% of cereal and 100% banana. He was drinking the strawberry ensure with meals, now he is sick of strawberry, willing to try vanilla. This RD expressed how important it is to eat to regain strength. Encouraged him to fill out menu with foods he likes. He did c/o nausea, zofran is ordered as needed but he does not request often only every couple days. Reminded to ask for if needed. Labs reviewed Na 134L, BUN 6L, Cr 0.60L, glucose 106H. IVF in place for hydration. Bilateral lower extremity 1+ edema noted. Received 20mg IV lasix on 12/31/2021. Wt went from 218 to 204 planned loss with fluid. Will continue to monitor po intake
--- NOTE | 2022-01-04 11:41 | HMH.ACPN2 ---
Internal Medicine - PN: Subj *Date: 01/04/22 *Time: 11:41 Interval history: FAMILY MEDICINE CONSULT: Exam Vital signs and Labs for Last 24 Hours: Temp Pulse Resp BP Pulse Ox 98.8 F 78 17 163/98 H 94 L 01/04/22 11:04 01/04/22 11:04 01/04/22 11:04 01/04/22 11:04 01/04/22 11:04 Laboratory Results - last 24 hr 01/01/22 : Fluid Glucose 101, Fluid Total Protein 3.4, Fluid Albumin 1.2, Fluid LDH 216 Laboratory Tests 01/01/22 01/02/22 01/03/22 07:44 16:30 06:34 WBC 15.9 H 11.4 H D 11.5 H Hgb 10.1 L 11.2 L 10.0 L D Sodium Potassium BUN Creatinine 01/03/22 06:34 WBC Hgb Sodium 134 L Potassium 3.5 BUN 7 L Creatinine 0.60 L I & O for Last 24 hours: Intake & Output 01/01/22 01/02/22 01/03/22 01/04/22 11:59 11:59 11:59 11:59 Intake Total 1172 / 1172 480 / 480 4143 / 4143 1354 / 1354 Output Total 2300 / 2300 2225 / 2225 1335 / 1335 1125 / 1125 Balance -1128 / -1128 -1745 / -1745 2808 / 2808 229 / 229 Weight 214 lb 14.4 oz 205 lb 8 oz 209 lb 1 oz 209 lb 1 oz Microbiology Reports for the Last 24 Hours: Microbiology 01/01/22 Unknown Pleural Fluid - Pleura Gram Stain - Final 01/01/22 Unknown Pleural Fluid - Pleura Body Fluid Culture - Preliminary NO GROWTH AFTER 48 HOURS - Constitutional no acute distress - *Routine HEENT Exam Head: Present: normocephalic Eye: Present: EOMI, PERRL ENT: Present: mucous membranes moist - *Routine Neck Exam Present: supple. Absent: lymphadenopathy - *Routine Respiratory Exam Present: CTA bilaterally - *Routine Cardiovascular Exam Present: RRR - *Routine Abdominal Exam Present: tenderness, ostomy - *Routine Extremities Exam Absent: cyanosis, clubbing, edema - *Routine Skin Exam Present: warm. Absent: rash - *Routine Neurological Exam Present: alert, oriented X3 - Routine Psychiatric Exam Comments: His mentation and his outlook seem to have improved significantly. Assessment and Plan (1) Mass of colon Status: Acute Category: Medical Code(s): K63.89 - Other specified diseases of intestine (2) Dehisced intestinal anastomosis Status: Acute Category: Medical Code(s): K91.89 - Other postprocedural complications and disorders of digestive system; T81.32XA - Disruption of internal operation (surgical) wound, not elsewhere classified, initial encounter (3) Colitis Status: Acute Category: Medical Code(s): K52.9 - Noninfective gastroenteritis and colitis, unspecified (4) Hypokalemia Status: Acute Category: Medical Code(s): E87.6 - Hypokalemia (5) Atelectasis Status: Acute Category: Medical Code(s): J98.11 - Atelectasis (6) Physical deconditioning Status: Acute Category: Medical Code(s): R53.81 - Other malaise (7) Postoperative ileus Status: Acute Category: Medical Code(s): K91.89 - Other postprocedural complications and disorders of digestive system; K56.7 - Ileus, unspecified (8) Abdominal fluid collection Status: Acute Category: Medical Code(s): R18.8 - Other ascites (9) Open wound anterior abdominal wall Status: Acute Category: Medical Code(s): S31.109A - Unspecified open wound of abdominal wall, unspecified quadrant without penetration into peritoneal cavity, initial encounter - Assessment and plan all Dx Assessment and Plan for all problems:: From a medical standpoint he is ready for discharge. Placement would be preferable to going home. He is going to require a lot of care.
--- NOTE | 2022-01-04 15:43 | HMH.OTEV ---
OT Inpatient Evaluation Rehab OT IP Evaluation Start: 01/04/22 11:19 Freq: ONCE Status: Complete Protocol: Document 01/04/22 15:37 [id number] Re[facility] OT IP Assessment Subjective History Pt oriented x 3 on arrival. Pt agreeable to engage in therapy evaluation. Pt admitted to [facility] following colon resection on 12/14/21. Pt is a 51 yowm adm to [facility] with abdominal mass, now S/P ex-lap with mass excision and large bowel resection. He reports he lives alone, but has family close by and no steps to enter the home. He reports prior to adm he was independent with all mobility. Pt also claims he was independent with all ADLs and IADLs. He did not require any type of AE during functional transfers and he still drove. Subjective I am in some pain about a 2/ 10. Pt resting in bed on arrival. Pt completed bed mobility and went from supine to sitting at eob with cga. Pt was dependent for lower body dressing to don socks. pt stood from eob with cga and rolling walker. Pt demonstrated fair static standing balance. Pt had to sit back down within ~1 minute due to decreased endurance. Pt requested to lay back down. Pt completed bed mobility with cga and went from sitting to supine. Pt was left with call bonilla and all other needs in reach. Objective Patient Orientation Person,Place,Birthday Upper Extremity Gross ROM WFL Bed Mobility bed mobility-scooting,bed mobility - supine/sit,bed mobility - rolling Assist Level Contact Guard/Hand Hold Transfer Training Sit/Stand Transfer Assist Level Contact Guard/Hand Hold Lower Body
[2022-01-05] VITALS (7 sets, daily range): BP systolic 152–185; BP diastolic 87–111; PULSE 70–90; RESP 16–18; TEMP 36.3–37.4; O2SAT 92–97; BMI 28.8
--- NOTE | 2022-01-05 04:00 | PC.NURSE ---
pt has rested well through the night, no issues or concerns, VSS, telemetry nsr, midline incision with dressing intact, no changes from previous assessment, lung sounds diminished. o2 at 2L with sats 92%
--- NOTE | 2022-01-05 07:17 | HMH.GSPN ---
Subjective Narrative: Currently resting. He had an okay night per nursing. Progress Note: A&P (1) Mass of colon Status: Acute (2) Dehisced intestinal anastomosis Status: Acute (3) Colitis Status: Acute (4) Hypokalemia Status: Acute (5) Atelectasis Status: Acute (6) Physical deconditioning Status: Acute Assessment and plan: Continue physical therapy. Short-term rehab placement discussed with patient on multiple occasions. He has been somewhat resistant to the idea of rehab placement but states he will think about it . (7) Postoperative ileus Status: Acute (8) Abdominal fluid collection Status: Acute (9) Open wound anterior abdominal wall Status: Acute Exam Vital signs and Labs for Last 24 Hours: Temp Pulse Resp BP Pulse Ox 97.6 F 79 18 164/94 H 92 L 01/05/22 04:00 01/05/22 04:00 01/05/22 04:00 01/05/22 04:00 01/05/22 04:00 I & O for Last 24 hours: Intake & Output 01/02/22 01/03/22 01/04/22 01/05/22 11:59 11:59 11:59 11:59 Intake Total 480 / 480 4143 / 4143 1354 / 1354 1025 / 1025 Output Total 2225 / 2225 1335 / 1335 1125 / 1125 1700 / 1700 Balance -1745 / -1745 2808 / 2808 229 / 229 -675 / -675 Weight 205 lb 8 oz 209 lb 1 oz 209 lb 1 oz 205 lb 7 oz Microbiology Reports for the Last 24 Hours: Microbiology 01/01/22 Unknown Pleural Fluid - Pleura Gram Stain - Final 01/01/22 Unknown Pleural Fluid - Pleura Body Fluid Culture - Preliminary NO GROWTH AFTER 72 HOURS - Constitutional no acute distress - *Routine Respiratory Exam Absent: respiratory distress - *Routine Cardiovascular Exam Absent: tachycardia - *Routine Abdominal Exam Comments: Unchanged. Dressings in place.
--- NOTE | 2022-01-05 09:04 | HMH.ACPN2 ---
Internal Medicine - PN: Subj *Date: 01/05/22 *Time: 09:04 Interval history: FAMILY MEDICINE NOTE: He seems very stable at this point. Placement will be an issue and the main issue. He has come to understand that he is going to need placement and care. He has come to understand that he will need to learn to do ostomy care on his own. Case management is working on placement. Exam Vital signs and Labs for Last 24 Hours: Temp Pulse Resp BP Pulse Ox 97.6 F 77 18 164/94 H 92 L 01/05/22 04:00 01/05/22 08:00 01/05/22 04:00 01/05/22 04:00 01/05/22 04:00 I & O for Last 24 hours: Intake & Output 01/02/22 01/03/22 01/04/22 01/05/22 11:59 11:59 11:59 11:59 Intake Total 480 / 480 4143 / 4143 1354 / 1354 1025 / 1025 Output Total 2225 / 2225 1335 / 1335 1125 / 1125 1700 / 1700 Balance -1745 / -1745 2808 / 2808 229 / 229 -675 / -675 Weight 205 lb 8 oz 209 lb 1 oz 209 lb 1 oz 205 lb 7 oz Microbiology Reports for the Last 24 Hours: Microbiology 01/01/22 Unknown Pleural Fluid - Pleura Gram Stain - Final 01/01/22 Unknown Pleural Fluid - Pleura Body Fluid Culture - Preliminary NO GROWTH AFTER 72 HOURS - Constitutional no acute distress - *Routine HEENT Exam Head: Present: normocephalic Eye: Present: EOMI, PERRL ENT: Present: mucous membranes moist - *Routine Neck Exam Present: supple. Absent: lymphadenopathy - *Routine Respiratory Exam Present: CTA bilaterally - *Routine Cardiovascular Exam Present: RRR - *Routine Abdominal Exam Present: soft, normoactive bowel sounds, ostomy. Absent: tenderness - *Routine Extremities Exam Present: edema (At least 2+). Absent: cyanosis, clubbing - *Routine Skin Exam Present: warm. Absent: rash - *Routine Neurological Exam Present: alert, oriented X3 Assessment and Plan (1) Mass of colon Status: Acute Category: Medical Code(s): K63.89 - Other specified diseases of intestine (2) Dehisced intestinal anastomosis Status: Acute Category: Medical Code(s): K91.89 - Other postprocedural complications and disorders of digestive system; T81.32XA - Disruption of internal operation (surgical) wound, not elsewhere classified, initial encounter (3) Colitis Status: Acute Category: Medical Code(s): K52.9 - Noninfective gastroenteritis and colitis, unspecified (4) Hypokalemia Status: Acute Category: Medical Code(s): E87.6 - Hypokalemia (5) Atelectasis Status: Acute Category: Medical Code(s): J98.11 - Atelectasis (6) Physical deconditioning Status: Acute Category: Medical Code(s): R53.81 - Other malaise (7) Postoperative ileus Status: Acute Category: Medical Code(s): K91.89 - Other postprocedural complications and disorders of digestive system; K56.7 - Ileus, unspecified (8) Abdominal fluid collection Status: Acute Category: Medical Code(s): R18.8 - Other ascites (9) Open wound anterior abdominal wall Status: Acute Category: Medical Code(s): S31.109A - Unspecified open wound of abdominal wall, unspecified quadrant without penetration into peritoneal cavity, initial encounter (10) Hypertension Status: Acute Category: Medical Code(s): I10 - Essential (primary) hypertension - Assessment and plan all Dx Assessment and Plan for all problems:: Despite his weight which is not showing an increase, he is showing fluid retention and his blood pressure is elevated this morning. I will give some Lasix. Review blood pressure medicines.
--- NOTE | 2022-01-05 09:27 | HMH.PULMPN ---
Internal Medicine - PN: Subj *Date: 01/05/22 *Time: 11:59 Interval history: No acute respiratory events overnight. Exam - Constitutional Constitutional:: Present: no acute distress, comfortable - HENMT Exam HENMT: Present: normocephalic - Eye Exam Eyes:: Present: normal appearance both eyes and related structures - Neck Exam Neck:: Present: normal visual inspection - Respiratory Exam Respiratory:: Present: able to speak in complete sentences, no respiratory distress - Cardiovascular Exam Cardiac:: Present: S1, S2 - GI Exam GI:: Present: soft - Skin Exam Skin: Present: warm, no rash - Neurological Exam Neurological: Present: alert, awake - Extremities Exam Extremities: Present: no cyanosis, no clubbing Assessment and Plan (1) Mass of colon Status: Acute Category: Medical Code(s): K63.89 - Other specified diseases of intestine (2) Dehisced intestinal anastomosis Status: Acute Category: Medical Code(s): K91.89 - Other postprocedural complications and disorders of digestive system; T81.32XA - Disruption of internal operation (surgical) wound, not elsewhere classified, initial encounter (3) Colitis Status: Acute Category: Medical Code(s): K52.9 - Noninfective gastroenteritis and colitis, unspecified (4) Hypokalemia Status: Acute Category: Medical Code(s): E87.6 - Hypokalemia (5) Atelectasis Status: Acute Category: Medical Code(s): J98.11 - Atelectasis (6) Physical deconditioning Status: Acute Category: Medical Code(s): R53.81 - Other malaise (7) Postoperative ileus Status: Acute Category: Medical Code(s): K91.89 - Other postprocedural complications and disorders of digestive system; K56.7 - Ileus, unspecified (8) Abdominal fluid collection Status: Acute Category: Medical Code(s): R18.8 - Other ascites (9) Open wound anterior abdominal wall Status: Acute Category: Medical Code(s): S31.109A - Unspecified open wound of abdominal wall, unspecified quadrant without penetration into peritoneal cavity, initial encounter (10) Hypertension Status: Acute Category: Medical Code(s): I10 - Essential (primary) hypertension - Assessment and plan all Dx Assessment and Plan for all problems:: #Transudative Left pleural effusion: #Hospital-acquired pneumonia: 51 year-old presented with abdominal problems noted to have 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 Patient hospital also complicated by subhepatic abscess status post drain with cultures growing Pseudomonas and patient has been receiving Zosyn. Worsening leukocytosis on 712 improving after draining and appropriate antibiotics. Patient noted to have slight worsening O2 requirements and resp distress and chest x-ray from 12/29 and 12/31 showed left-sided pleural effusion and left lower lobe pneumonia and pulmonary was called for further management. Patient CT abdomen from 12/25/2021 showed bilateral lower lobe atelectasis, left lower lobe airspace disease and bilateral small effusions lt> rt and patient has been receiving Zosyn which will cover for hospital-acquired pneumonia. Leukocytosis improving. Bilateral lower extremity 1+ edema noted. Received 20mg IV lasix on 12/31/2021 Thoracentesis with removal of 720 cc. Transudative pleural effusion likely from volume overload. Pleural fluid cultures negative. Chest tube removed yesterday. Interval update No acute events overnight. Physical therapy, out of bed to chair and incentive spirometry will definitely help improve this patient's current respiratory distress and avoid further pulmonary complications Recent Chest x-ray continue to show right lower lobe infiltrate. No worsening respiratory status. Afebrile. Leukocytosis improving. Plan: -Incentive spirometry -Activity as tolerated -Continue oxygen supplementation NEEDED to maintain O2 satur
[2022-01-05 21:48] LABS: Antinuclear Antibodies (ANA) NEGATIVE
[2022-01-06] VITALS (8 sets, daily range): BP systolic 134–154; BP diastolic 83–99; PULSE 70–84; RESP 16–20; TEMP 36.4–37; O2SAT 92–96; BMI 27.6
--- NOTE | 2022-01-06 04:09 | PC.NURSE ---
Pt has rested well this shift. Pt is alert and oriented x4. Lung sounds are clear bilaterally and tolerating room air to 2L nasal cannula well. Bowel sounds are active in all 4 quadrants. Ostomies burped as needed. Dressing changed at the beginning of shift. Pt has not c/o abd pain, nausea, or vomiting. Pt is being turned Q2hrs and as requested. BP has been elevated SBP 150-160 and DBP has remained 90-100. No acute changes.
--- NOTE | 2022-01-06 11:10 | PC.NURSE ---
Recvd call from Regi at [facility] stating the prior-auth is still pending.
--- NOTE | 2022-01-06 13:57 | PC.NURSE ---
patient refusal Patient has been encouraged to eat at Breakfast and supper multiple times. He refused each time he was asked. I have given patient a vanilla glucerna to drink and I will encourage him to eat at dinner. 01/06/2022 2209 Myrtle Romeo SRNA
--- NOTE | 2022-01-06 18:12 | PC.NURSE ---
VSS, has been resting with eyes closed most of the day in bed; refused to get up to chair; has not been interested in eating, has been drinking some Tea that has been brought in by family. New IV 20g RFA x 1 attempt. Patient sitting up in bed tonight for dinner but not interested - offered him multiple things and he asked for peanut butter and crackers - dietary brought some to room - patient currently eating them. No acute distress noted at this time call light within reach bed at lowest level for safety; will continue to monitor.
[2022-01-07] VITALS: BP 112/64; PULSE 70; PULSE 75; RESP 20; TEMP 36.4; O2SAT 96
[2022-01-07 04:00] VITALS: BP 117/69; PULSE 78; PULSE 80; RESP 20; TEMP 36.9; O2SAT 95
[2022-01-07 04:42] VITALS: BMI 27.4
--- NOTE | 2022-01-07 04:51 | PC.NURSE ---
Pt rested well this shift. Pt is alert and oriented x4. Lung sounds are clear bilaterally. tolerating room air to 1L nasal cannula well. ABD dressing changed this shift. Pt was medicated for pain once this shift and voiced adequate relief. Bowel sounds active in all 4 quads. Pt has been turned Q2HRS and as requested. Ostomies drained as needed. voiding per urinal independently. VSS. SBP has been 112-143 and DBP 64-91. Pt has had no c/o nausea or vomiting.
--- NOTE | 2022-01-07 06:00 | P.PN_ITS ---
Subjective Patient reports: no new complaints Narrative: Mr. Lopez is a 51-year-old male status post sigmoid colectomy complicated by anastomotic leak requiring relaparotomy and sigmoid colostomy. Protracted hospitalization. Remains inpatient with anticipated discharge planning to [facility] for short-term rehabilitation. No acute events overnight. Reports feeling better than yesterday. Slight improvement. Able to tolerate oral intake, yet diminished appetite. Dressing changes continue for midline wound. No recent lab work. Progress Note: A&P (1) Mass of colon Status: Acute (2) Dehisced intestinal anastomosis Status: Acute (3) Colitis Status: Acute (4) Hypokalemia Status: Acute (5) Atelectasis Status: Acute (6) Physical deconditioning Status: Acute (7) Postoperative ileus Status: Acute (8) Abdominal fluid collection Status: Acute (9) Open wound anterior abdominal wall Status: Acute (10) Hypertension Status: Acute Assessment and Plan for All Diagnoses:: Colitis. Status post sigmoid colectomy with subsequent colostomy creation after postoperative anastomotic dehiscence. Slow improvement. Awaiting [facility] for discharge rehabilitation. Appetite diminished. Energy diminished. No acute changes. Simply waiting for improved oral intake and physical strength. Check labs today. No other significant changes. Exam Vital signs and Labs for Last 24 Hours: Temp Pulse Resp BP Pulse Ox 98.4 F 78 20 117/69 95 01/07/22 04:00 01/07/22 04:00 01/07/22 04:00 01/07/22 04:00 01/07/22 04:00 I & O for Last 24 hours: Intake & Output 01/04/22 01/05/22 01/06/22 01/07/22 11:59 11:59 11:59 11:59 Intake Total 1354 / 1354 1265 / 1265 1986 / 1986 2131 / 2131 Output Total 1125 / 1125 2200 / 2200 3095 / 3095 2380 / 2380 Balance 229 / 229 -935 / -935 -1108 / -1108 -249 / -249 Weight 94.829 kg 93.185 kg 89.494 kg 89.04 kg Microbiology Reports for the Last 24 Hours: Microbiology 01/01/22 Unknown Pleural Fluid - Pleura Gram Stain - Final 01/01/22 Unknown Pleural Fluid - Pleura Body Fluid Culture - Final NO GROWTH AFTER 5 DAYS - Constitutional no acute distress - *Routine Respiratory Exam Present: CTA bilaterally - *Routine Cardiovascular Exam Present: RRR - *Routine Abdominal Exam Comments: Soft. Nondistended. Minimally tender. Right and left ostomy viable and functioning. Midline wound with 2 separate open areas requiring packing. No further debridement required.
[2022-01-07 07:20] LABS: Basophils # 0.1 K/mm3 (0-0.2); Basophils % 0.4 % (0.1-2.0); Eosinophils # 0.3 K/mm3 (0.0-0.4); Eosinophils % 2.3 % (0.1-12.0); Hematocrit 33.9 % (42.0-52.0); Hemoglobin 11.2 g/dL (14.1-18.0); Lymphocytes # 2.1 K/mm3 (0.7-4.5); Lymphocytes % 15.9 % (10-50); Mean Corpuscular HGB Conc 33.1 g/dL (31.8-35.4); Mean Corpuscular Hemoglobin 28.7 pg (27.0-31.2); Mean Corpuscular Volume 86.8 fl (80-94); Mean Platelet Volume 8.3 fl (7.4-10.4); Monocytes # 1.3 K/mm3 (0.1-1.0); Neutrophils # 9.6 K/mm3 (1.8-7.8); Neutrophils % 71.5 % (37.0-80.0); Platelet Count 607 K/mm3 (142-424); Red Blood Count 3.91 M/mm3 (4.60-6.20); Red Cell Distribution Width 13.9 % (11.5-17.5); White Blood Count 13.4 K/mm3 (4.8-10.8)
[2022-01-07 07:37] LABS: Blood Urea Nitrogen 10 mg/dl (9-20); Carbon Dioxide 31 mmol/L (22.0-30.0); Chloride 100 mmol/L (98-107); Creatinine Clearance Estimated 154 mL/min (50-200); Estimated Glomerular Filt Rate 118 ml/min (>60); GFR (African American) 143 ML/MIN (>60); Glucose 100 mg/dl (74-100); Sodium 134 mmol/L (136-145)
[2022-01-07 08:00] VITALS: BP 124/76; PULSE 80; PULSE 85; RESP 18; TEMP 36.5; O2SAT 93; O2SAT 94
[2022-01-07 12:00] VITALS: BP 140/92; PULSE 71; PULSE 81; RESP 18; TEMP 36.4; O2SAT 93
[2022-01-07 16:00] VITALS: BP 127/83; PULSE 76; PULSE 80; RESP 18; TEMP 36.4; O2SAT 95
[2022-01-07 20:00] VITALS: BP 168/77; PULSE 80; PULSE 83; RESP 16; TEMP 36.6; O2SAT 94
[2022-01-08] VITALS: BP 154/66; PULSE 68; PULSE 70; RESP 17; TEMP 36.6; O2SAT 96
[2022-01-08 04:00] VITALS: BP 134/68; PULSE 64; PULSE 70; RESP 17; TEMP 36.7; O2SAT 95
--- NOTE | 2022-01-08 04:06 | PC.NURSE ---
PT ALERT AND ORIENTED X 4. IV INFUSING PER ORDER. OSTOMY SITES INTACT. ILEOSTOMY IS DRAINING BROWN, LIQUID STOOL. SOFT BROWN STOOL NOTED IN COLOSTOMY. ASSISTING WITH DRAINING OSTOMY BAGS AND OSTOMY CARE NEEDED. ABD WOUNDS ARE DRAINING THICK, GREEN DRAINAGE. ABD DRESSING CHANGED, NOW C/D/I. BS ACTIVE X 4, LUNGS CLEAR, BUT DIMINISHED. MEDICATED PER MAR ONCE THIS SHIFT FOR PAIN. PT VOICED ADEQUATE RELIEF. ALSO MEDICATED ONCE THIS SHIFT FOR NAUSEA, ADEQUATE RELIEF ALSO ACHIEVED PER PT REPORT. PT IS BEING TURNED Q2HRS. DRSG TO COCCYX IS C/D/I. PT IS VOIDING INDEPENDENTLY PER URINAL. SHOWING NSR ON TELE. PT HAS RESTED WELL THIS SHIFT. NO OTHER NEEDS OR COMPLAINTS VOICED AT THIS TIME. CALL LIGHT IN REACH.
[2022-01-08 05:00] VITALS: BMI 25.8
--- NOTE | 2022-01-08 06:08 | PC.NURSE ---
MEDICATED PER MAR FOR NAUSEA AND PAIN. CALL LIGHT IN REACH. NO OTHER NEEDS AT THIS TIME.
[2022-01-08 08:00] VITALS: BP 117/86; PULSE 75; PULSE 84; RESP 18; TEMP 36.7; O2SAT 95
--- NOTE | 2022-01-08 08:40 | HMH.ACPN2 ---
Internal Medicine - PN: Subj *Date: 01/08/22 *Time: 08:40 Interval history: FAMILY MEDICINE NOTE: The patient remained stable through the weekend. We are awaiting placement at [facility]. His blood pressure has improved with medication adjustment. His colostomies are functioning. His mental status is also improved. Apparently he still has some pleural effusion on the left. See the note from pulmonary. Exam Vital signs and Labs for Last 24 Hours: Temp Pulse Resp BP Pulse Ox 98.0 F 84 18 117/86 95 01/08/22 08:00 01/08/22 08:00 01/08/22 08:00 01/08/22 08:00 01/08/22 08:00 I & O for Last 24 hours: Intake & Output 01/05/22 01/06/22 01/07/22 01/08/22 11:59 11:59 11:59 11:59 Intake Total 1265 / 1265 1986 / 1986 2757 / 2757 2650 / 2650 Output Total 2200 / 2200 3095 / 3095 2600 / 2600 2900 / 2900 Balance -935 / -935 -1108 / -1108 157 / 157 -250 / -250 Weight 205 lb 7 oz 197 lb 4.8 oz 196 lb 4.8 oz 184 lb 9.6 oz - Constitutional no acute distress - *Routine HEENT Exam Head: Present: normocephalic Eye: Present: EOMI, PERRL ENT: Present: mucous membranes moist - *Routine Neck Exam Present: supple. Absent: lymphadenopathy - *Routine Respiratory Exam Present: decreased breath sounds (Left base) - *Routine Cardiovascular Exam Present: RRR - *Routine Abdominal Exam Present: soft, surgical scars, wound, ostomy (Functioning) - *Routine Extremities Exam Absent: cyanosis, clubbing, edema - *Routine Skin Exam Present: wounds (Still with sacral erosion and dressing in place) - *Routine Neurological Exam Present: alert, oriented X3 Assessment and Plan (1) Mass of colon Status: Acute Category: Medical Code(s): K63.89 - Other specified diseases of intestine (2) Dehisced intestinal anastomosis Status: Acute Category: Medical Code(s): K91.89 - Other postprocedural complications and disorders of digestive system; T81.32XA - Disruption of internal operation (surgical) wound, not elsewhere classified, initial encounter (3) Colitis Status: Acute Category: Medical Code(s): K52.9 - Noninfective gastroenteritis and colitis, unspecified (4) Hypokalemia Status: Acute Category: Medical Code(s): E87.6 - Hypokalemia (5) Atelectasis Status: Acute Category: Medical Code(s): J98.11 - Atelectasis (6) Physical deconditioning Status: Acute Category: Medical Code(s): R53.81 - Other malaise (7) Postoperative ileus Status: Acute Category: Medical Code(s): K91.89 - Other postprocedural complications and disorders of digestive system; K56.7 - Ileus, unspecified (8) Abdominal fluid collection Status: Acute Category: Medical Code(s): R18.8 - Other ascites (9) Open wound anterior abdominal wall Status: Acute Category: Medical Code(s): S31.109A - Unspecified open wound of abdominal wall, unspecified quadrant without penetration into peritoneal cavity, initial encounter (10) Hypertension Status: Acute Category: Medical Code(s): I10 - Essential (primary) hypertension - Assessment and plan all Dx Assessment and Plan for all problems:: He is stable and awaiting placement at [facility].
[2022-01-08 12:00] VITALS: BP 103/72; PULSE 74; PULSE 77; RESP 18; TEMP 36.8; O2SAT 95
--- NOTE | 2022-01-08 14:25 | HMH.GSPN ---
Subjective Narrative: Patient states that he had some nausea over the weekend. He has done minimal ambulation. All drains are out and he is off antibiotics. Progress Note: A&P (1) Mass of colon Status: Acute (2) Dehisced intestinal anastomosis Status: Acute (3) Colitis Status: Acute (4) Hypokalemia Status: Acute (5) Atelectasis Status: Acute (6) Physical deconditioning Status: Acute (7) Postoperative ileus Status: Acute (8) Abdominal fluid collection Status: Acute (9) Open wound anterior abdominal wall Status: Acute (10) Hypertension Status: Acute Assessment and Plan for All Diagnoses:: Continue rehabilitation as inpatient at this time. Discharge planning for short-term rehab placement in progress. Exam Vital signs and Labs for Last 24 Hours: Temp Pulse Resp BP Pulse Ox 98.2 F 74 18 103/72 L 95 01/08/22 12:00 01/08/22 12:00 01/08/22 12:00 01/08/22 12:00 01/08/22 12:00 I & O for Last 24 hours: Intake & Output 01/06/22 01/07/22 01/08/22 01/09/22 11:59 11:59 11:59 11:59 Intake Total 1986 / 1986 2757 / 2757 2890 / 2890 Output Total 3095 / 3095 2600 / 2600 2900 / 2900 Balance -1108 / -1108 157 / 157 -10 / -10 Weight 197 lb 4.8 oz 196 lb 4.8 oz 184 lb 9.6 oz - *Routine Abdominal Exam Comments: Abdomen is soft and nondistended. Ileostomy is functioning well. Minimal output from colostomy. There is some minor fascial necrosis in the base of the wound. Remaining bridge sutures were removed. Limited irrigation of deep wound necrosis debrided at bedside.
--- NOTE | 2022-01-08 15:01 | PC.NURSE ---
PT IS RESTING IN BED. MEDICATED PER AUG FOR DISCOMFORT. PT HAS BEEN SOMEWHAT MORE MOTIVATED THIS SHIFT. TOLERATED AMBULATING IN THE ROOM WITH PHYSICAL THERAPY. PT AMBULATED TO THE BATHROOM WITH NURSING STAFF. STAFF ASSISTED PT WITH SHOWER. ABDOMINAL WOUND ASSESSED WITH THIS SHIFT. WOUND WAS REPACKED WITH DRY KERLIX PER AND REINFORCED WITH TAPE. DRY 4X4 AND TAPE APPLIED TO SMALL WOUND(FROM DRAIN) NOTED AT THE LEFT SIDE OF ABDOMEN. 250 ML'S EMPTIED FROM PT'S ILEOSTOMY THIS SHIFT. CLEAN DRESSING APPLIED TO STAGE 1 ON THE RT BUTTOCKS. PT HAS BEEN ENCOURAGED TO TURN AND REPOSITION FREQUENTLY AND TO USE HIS INCENTIVE SPIROMETER. LUNG SOUNDS DIMINISHED. APPETITE CONTINUES TO BE POOR BUT HAS IMPROVED SLOWLY EACH DAY. VSS. PT STATES HE CONTINUES TO HAVE SOB WHEN AMBULATING. WILL CONTINUE TO MONITOR.
[2022-01-08 16:00] VITALS: BP 102/67; PULSE 73; PULSE 76; RESP 16; TEMP 37.1; O2SAT 99
[2022-01-08 20:00] VITALS: BP 128/74; PULSE 79; PULSE 80; RESP 16; TEMP 36.6; O2SAT 92
[2022-01-09] VITALS: BP 124/74; PULSE 78; PULSE 80; RESP 16; TEMP 36.6; O2SAT 98
[2022-01-09 04:00] VITALS: BP 132/64; PULSE 70; PULSE 74; RESP 16; TEMP 36.6; O2SAT 94
[2022-01-09 04:56] VITALS: BMI 25.2
--- NOTE | 2022-01-09 06:09 | PC.NURSE ---
No acute changes overnight. Pt slept well. Requested tylenol early in shift and didn't require any pain medication until DSG change this AM. Pt encouraged to get up to chair this AM. Pt declined. Scant amount of stool in colostomy bag. 170 ml of liquid stool from Ileostomy. Pt has used urinal this shift. VSS. Call light within reach.
--- NOTE | 2022-01-09 06:49 | HMH.GSPN ---
Subjective Narrative: No new issues. Progress Note: A&P (1) Mass of colon Status: Acute (2) Dehisced intestinal anastomosis Status: Acute (3) Colitis Status: Acute (4) Hypokalemia Status: Acute (5) Atelectasis Status: Acute (6) Physical deconditioning Status: Acute (7) Postoperative ileus Status: Acute (8) Abdominal fluid collection Status: Acute (9) Open wound anterior abdominal wall Status: Acute (10) Hypertension Status: Acute Assessment and Plan for All Diagnoses:: Discharge planning for short-term rehab placement Exam Vital signs and Labs for Last 24 Hours: Temp Pulse Resp BP Pulse Ox 98 F 74 16 132/64 94 L 01/09/22 04:00 01/09/22 04:00 01/09/22 04:00 01/09/22 04:00 01/09/22 04:00 I & O for Last 24 hours: Intake & Output 01/06/22 01/07/22 01/08/22 01/09/22 11:59 11:59 11:59 11:59 Intake Total 1986 / 1986 2757 / 2757 2890 / 2890 360 / 360 Output Total 3095 / 3095 2600 / 2600 2900 / 2900 970 / 970 Balance -1108 / -1108 157 / 157 -10 / -10 -610 / -610 Weight 197 lb 4.8 oz 196 lb 4.8 oz 184 lb 9.6 oz 180 lb 11.2 oz - *Routine Abdominal Exam Present: soft Comments: Ileostomy functioning well. Abdomen soft.
[2022-01-09 06:56] LABS: Basophils # 0.1 K/mm3 (0-0.2); Basophils % 0.5 % (0.1-2.0); Eosinophils # 0.6 K/mm3 (0.0-0.4); Eosinophils % 4.2 % (0.1-12.0); Hematocrit 33.5 % (42.0-52.0); Hemoglobin 11.2 g/dL (14.1-18.0); Lymphocytes # 2.7 K/mm3 (0.7-4.5); Lymphocytes % 18.1 % (10-50); Mean Corpuscular HGB Conc 33.4 g/dL (31.8-35.4); Mean Corpuscular Hemoglobin 28.7 pg (27.0-31.2); Mean Corpuscular Volume 85.9 fl (80-94); Monocytes # 1.2 K/mm3 (0.1-1.0); Monocytes % 7.8 % (1.7-9.3); Neutrophils # 10.4 K/mm3 (1.8-7.8); Neutrophils % 69.4 % (37.0-80.0); Platelet Count 611 K/mm3 (142-424); Red Cell Distribution Width 13.9 % (11.5-17.5)
[2022-01-09 07:01] LABS: MANUAL DIFFERENTIAL MANUAL DIFFERENTIAL (MANUAL DIFF)
[2022-01-09 07:07] LABS: Anion Gap 6.8 mEq/L (5-15); Blood Urea Nitrogen 15 mg/dl (9-20); Calcium 11.5 mg/dl (8.4-10.2); Carbon Dioxide 30 mmol/L (22.0-30.0); Chloride 100 mmol/L (98-107); Creatinine Clearance Estimated 99 mL/min (50-200); Estimated Glomerular Filt Rate 78 ml/min (>60); GFR (African American) 95 ML/MIN (>60); Glucose 110 mg/dl (74-100); Potassium 3.8 mmoL/L (3.5-5.1); Sodium 133 mmol/L (136-145)
[2022-01-09 07:26] LABS: Eosinophils % 1 % (0-3); Lymphocytes % 11 % (10-50); Monocytes % 13 % (2-9); Neutrophils % 75 % (42-76); Total Cells Counted 100
[2022-01-09 07:27] LABS: Platelet Estimate Moderate Increase; RBC Morphology Normal
[2022-01-09 08:00] VITALS: BP 95/65; PULSE 70; PULSE 71; RESP 16; TEMP 36.4; O2SAT 92
--- NOTE | 2022-01-09 08:45 | XR_ITS ---
FINAL REPORT CLINICAL HISTORY: pleural effusion COMPARISON: January 02, 2022 FINDINGS: PA and lateral views of the chest were obtained. The cardiac and mediastinal silhouettes are within normal limits. There has been no significant interval change in the left greater than right basilar opacities. There is a moderate left pleural effusion. There is no pneumothorax. No acute osseous abnormality is identified. IMPRESSION: No significant interval change in the left greater than right basilar opacities. Moderate left pleural effusion. Reviewed, Interpreted and Dictated by Anamaria Lee MD Transcribed by Chela Welch Authenticated and [facility]
--- NOTE | 2022-01-09 08:46 | HMH.ACPN2 ---
Internal Medicine - PN: Subj *Date: 01/09/22 *Time: 08:46 Interval history: FAMILY MEDICINE NOTE: AWAITING PLACEMENT. NO NEW COMPLAINTS. LAB STABLE BUT wbc STILL ELEVATED. COLOSTOMIES FUNCTIONING. Markedly decreased breath sounds on left. not seen by pulmonary since 01/05. Will repeat CXR. Exam Vital signs and Labs for Last 24 Hours: Temp Pulse Resp BP Pulse Ox 98 F 74 16 132/64 94 L 01/09/22 04:00 01/09/22 04:00 01/09/22 04:00 01/09/22 04:00 01/09/22 04:00 Laboratory Results - last 24 hr 01/09/22 06:48: WBC 15.0 H, RBC 3.90 L, Hgb 11.2 L, Hct 33.5 L, MCV 85.9, MCH 28.7, MCHC 33.4, RDW 13.9, Plt Count 611 H, MPV 8.0, Neut % (Auto) 69.4, Lymph % (Auto) 18.1, [place] % (Auto) 7.8, Eos % (Auto) 4.2, Baso % (Auto) 0.5, Neut # (Auto) 10.4 H, Lymph # (Auto) 2.7, [place] # (Auto) 1.2 H, Eos # (Auto) 0.6 H, Baso # (Auto) 0.1, Total Counted 100, Neutrophils % (Manual) 75, Lymphocytes % (Manual) 11, Monocytes % (Manual) 13 H, Eosinophils % (Manual) 1, Platelet Estimate Moderate increase, RBC Morphology Normal 01/09/22 06:48: Sodium 133 L, Potassium 3.8, Chloride 100, Carbon Dioxide 30, Anion Gap 6.8, BUN 15 D, Creatinine 1.00 D, Estimated Creat Clear 99, Estimated GFR 78, Est GFR ( Amer) 95 D, Glucose 110 H, Calcium 11.5 H I & O for Last 24 hours: Intake & Output 01/06/22 01/07/22 01/08/22 01/09/22 11:59 11:59 11:59 11:59 Intake Total 1986 / 1986 2757 / 2757 2890 / 2890 360 / 360 Output Total 3095 / 3095 2600 / 2600 2900 / 2900 970 / 970 Balance -1108 / -1108 157 / 157 -10 / -10 -610 / -610 Weight 197 lb 4.8 oz 196 lb 4.8 oz 184 lb 9.6 oz 180 lb 11.2 oz - Constitutional no acute distress - *Routine HEENT Exam Head: Present: normocephalic Eye: Present: EOMI, PERRL ENT: Present: mucous membranes moist - *Routine Neck Exam Present: supple. Absent: lymphadenopathy - *Routine Respiratory Exam Present: decreased breath sounds (left). Absent: respiratory distress - *Routine Cardiovascular Exam Present: RRR - *Routine Abdominal Exam Present: soft, normoactive bowel sounds, tenderness, ostomy - *Routine Extremities Exam Absent: cyanosis, clubbing, edema - *Routine Skin Exam Present: warm. Absent: rash - *Routine Neurological Exam Present: alert, oriented X3 - Routine Psychiatric Exam Absent: normal affect (Flat) Assessment and Plan (1) Mass of colon Status: Acute Category: Medical Code(s): K63.89 - Other specified diseases of intestine (2) Dehisced intestinal anastomosis Status: Acute Category: Medical Code(s): K91.89 - Other postprocedural complications and disorders of digestive system; T81.32XA - Disruption of internal operation (surgical) wound, not elsewhere classified, initial encounter (3) Colitis Status: Acute Category: Medical Code(s): K52.9 - Noninfective gastroenteritis and colitis, unspecified (4) Hypokalemia Status: Acute Category: Medical Code(s): E87.6 - Hypokalemia (5) Atelectasis Status: Acute Category: Medical Code(s): J98.11 - Atelectasis (6) Physical deconditioning Status: Acute Category: Medical Code(s): R53.81 - Other malaise (7) Postoperative ileus Status: Acute Category: Medical Code(s): K91.89 - Other postprocedural complications and disorders of digestive system; K56.7 - Ileus, unspecified (8) Abdominal fluid collection Status: Acute Category: Medical Code(s): R18.8 - Other ascites (9) Open wound anterior abdominal wall Status: Acute Category: Medical Code(s): S31.109A - Unspecified open wound of abdominal wall, unspecified quadrant without penetration into peritoneal cavity, initial encounter (10) Hypertension Status: Acute Category: Medical Code(s): I10 - Essential (primary) hypertension - Assessment and plan all Dx Assessment and Plan for all problems:: Check chest x-ray. Awaiting placement.
--- NOTE | 2022-01-09 09:42 | DIET.NUTRFU ---
Patients po intake improved yesterday consumed 50% for breakfast and dinner. Today's breakfast was poor. Patient is waiting for placement. IVF continue with low sodium of 133. Patient is losing weight d/t poor po intake, admit wt was 96kg and is now 83kg. Rd has spoke to patient multiple times in past about how important it is to eat, supplements are in place- does not always consume. He does show some signs of depression possibly because he has been in hospital since 12/14, celexa in place for depression. Ileostomy functioning well. Abdomen soft. continues to have nausea with zofran in place. Will continue to follow for any discharge needs
[2022-01-09 12:00] VITALS: BP 129/65; PULSE 80; PULSE 81; RESP 16; TEMP 36.5; O2SAT 94
--- NOTE | 2022-01-09 13:51 | PC.NURSE ---
rounded on patient. patient asleep at this time. call light and table within reach.
--- NOTE | 2022-01-09 14:41 | HMH.PULMPN ---
Internal Medicine - PN: Subj *Date: 01/09/22 *Time: 16:49 Interval history: Patient denies any new respiratory complaints except for an episode of respiratory distress overnight. Continues to remain on room air. Exam - Constitutional Constitutional:: Present: no acute distress, comfortable - HENMT Exam HENMT: Present: normocephalic - Eye Exam Eyes:: Present: normal appearance both eyes and related structures - Neck Exam Neck:: Present: normal visual inspection - Respiratory Exam Respiratory:: Present: able to speak in complete sentences, no respiratory distress, decreased breath sounds. Absent: wheezing Comments: LLL méndez decreased sounds - Cardiovascular Exam Cardiac:: Present: S1, S2 - Skin Exam Skin: Present: warm, no rash - Neurological Exam Neurological: Present: alert, awake, normal cognition - Extremities Exam Extremities: Present: no cyanosis, no clubbing, no edema Assessment and Plan (1) Mass of colon Status: Acute Category: Medical Code(s): K63.89 - Other specified diseases of intestine (2) Dehisced intestinal anastomosis Status: Acute Category: Medical Code(s): K91.89 - Other postprocedural complications and disorders of digestive system; T81.32XA - Disruption of internal operation (surgical) wound, not elsewhere classified, initial encounter (3) Colitis Status: Acute Category: Medical Code(s): K52.9 - Noninfective gastroenteritis and colitis, unspecified (4) Hypokalemia Status: Acute Category: Medical Code(s): E87.6 - Hypokalemia (5) Atelectasis Status: Acute Category: Medical Code(s): J98.11 - Atelectasis (6) Physical deconditioning Status: Acute Category: Medical Code(s): R53.81 - Other malaise (7) Postoperative ileus Status: Acute Category: Medical Code(s): K91.89 - Other postprocedural complications and disorders of digestive system; K56.7 - Ileus, unspecified (8) Abdominal fluid collection Status: Acute Category: Medical Code(s): R18.8 - Other ascites (9) Open wound anterior abdominal wall Status: Acute Category: Medical Code(s): S31.109A - Unspecified open wound of abdominal wall, unspecified quadrant without penetration into peritoneal cavity, initial encounter (10) Hypertension Status: Acute Category: Medical Code(s): I10 - Essential (primary) hypertension - Assessment and plan all Dx Assessment and Plan for all problems:: #Transudative Left pleural effusion: #Hospital-acquired pneumonia: 51 year-old presented with abdominal problems noted to have 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 Patient hospital also complicated by subhepatic abscess status post drain with cultures growing Pseudomonas and patient has been receiving Zosyn. Worsening leukocytosis on 712 improving after draining and appropriate antibiotics. Patient noted to have slight worsening O2 requirements and resp distress and chest x-ray from 12/29 and 12/31 showed left-sided pleural effusion and left lower lobe pneumonia and pulmonary was called for further management. Patient CT abdomen from 12/25/2021 showed bilateral lower lobe atelectasis, left lower lobe airspace disease and bilateral small effusions lt> rt and patient has been receiving Zosyn which will cover for hospital-acquired pneumonia. Leukocytosis improving. Bilateral lower extremity 1+ edema noted. Received 20mg IV lasix on 12/31/2021 Thoracentesis with removal of 720 cc. Transudative pleural effusion likely from volume overload. Pleural fluid cultures negative. Chest tube removed yesterday. Interval update Patient continues to remain on room air. No acute respiratory events since last except for an episode of respiratory distress overnight. Repeat chest x-ray PA lateral from today continue to showed moderate left-sided pleural effusion appears to be stable from postthoracentesis
[2022-01-09 16:00] VITALS: BP 112/66; PULSE 80; PULSE 84; RESP 22; TEMP 36.8; O2SAT 93
--- NOTE | 2022-01-09 17:43 | PC.NURSE ---
Addendum entered by Gunnar Weinberg RN 01/09/22 17:46: Lung sounds remain diminished bilaterally. Original Note: Pt alert and oriented x 4. RR even and unlabored. NAD noted. Pt states he only has exertional soa, when working w/ therapy. CB in reach. Dsg's to abd changed per order. VSS. Meds given per mar. Have encouraged pt to be up and out of bed, in which he has this shift and in chair. Have also encouraged Incentive spirometer. Dr. Maier's office notified of order for him to see pt and he did round, see note.
[2022-01-09 20:00] VITALS: BP 131/80; PULSE 80; RESP 16; TEMP 36.7; O2SAT 91
[2022-01-10] VITALS (7 sets, daily range): BP systolic 101–130; BP diastolic 61–76; PULSE 68–90; RESP 16–20; TEMP 36.5–37; O2SAT 93–97; BMI 24.1
--- NOTE | 2022-01-10 05:00 | PC.NURSE ---
Pt has rested intermittently throughout shift. Pt has reported pain in abd x2 this shift, medicated per AUG. Pt remains on RA with no c/o of SOA and O2 >90%. Scant amount of stool in colostomy bag. 250 ml of liquid stool from Ileostomy. Pt has used urinal independently this shift. Have offered to turn patient, pt has declined turns. IS use encouraged throughout shift. Midline dressing changed this shift.
--- NOTE | 2022-01-10 07:02 | HMH.GSPN ---
Subjective Narrative: Currently resting. No new issues per nursing. Progress Note: A&P (1) Mass of colon Status: Acute (2) Dehisced intestinal anastomosis Status: Acute (3) Colitis Status: Acute (4) Hypokalemia Status: Acute (5) Atelectasis Status: Acute (6) Physical deconditioning Status: Acute Assessment and plan: Continue physical therapy (7) Postoperative ileus Status: Acute (8) Abdominal fluid collection Status: Acute Assessment and plan: May require repeat CT scan with possible repeat drain placement if he develops fever or other signs consistent with decompensation. (9) Open wound anterior abdominal wall Status: Acute (10) Hypertension Status: Acute Assessment and Plan for All Diagnoses:: Continue current management and await placement. Exam Vital signs and Labs for Last 24 Hours: Temp Pulse Resp BP Pulse Ox 97.9 F 87 17 124/76 93 L 01/10/22 04:00 01/10/22 04:00 01/10/22 04:00 01/10/22 04:00 01/10/22 04:00 Laboratory Results - last 24 hr 01/09/22 06:48: Total Counted 100, Neutrophils % (Manual) 75, Lymphocytes % (Manual) 11, Monocytes % (Manual) 13 H, Eosinophils % (Manual) 1, Platelet Estimate Moderate increase, RBC Morphology Normal 01/09/22 06:48: Sodium 133 L, Potassium 3.8, Chloride 100, Carbon Dioxide 30, Anion Gap 6.8, BUN 15 D, Creatinine 1.00 D, Estimated Creat Clear 99, Estimated GFR 78, Est GFR ( Amer) 95 D, Glucose 110 H, Calcium 11.5 H I & O for Last 24 hours: Intake & Output 01/07/22 01/08/22 01/09/22 01/10/22 11:59 11:59 11:59 11:59 Intake Total 2757 / 2757 2890 / 2890 360 / 360 1771 / 1771 Output Total 2600 / 2600 2900 / 2900 1320 / 1320 1400 / 1400 Balance 157 / 157 -10 / -10 -960 / -960 371 / 371 Weight 196 lb 4.8 oz 184 lb 9.6 oz 180 lb 11.2 oz 172 lb 9.6 oz Narrative: Evaluated by pulmonology yesterday. Currently, the plan is to hold off on repeat thoracentesis. - Constitutional no acute distress - *Routine Respiratory Exam Absent: respiratory distress - *Routine Cardiovascular Exam Present: RRR - *Routine Abdominal Exam Comments: Ostomies viable. Dressings intact.
[2022-01-10 08:51] LABS: Basophils # 0.1 K/mm3 (0-0.2); Basophils % 0.5 % (0.1-2.0); Eosinophils # 0.5 K/mm3 (0.0-0.4); Eosinophils % 3.8 % (0.1-12.0); Hematocrit 33.2 % (42.0-52.0); Hemoglobin 10.9 g/dL (14.1-18.0); Lymphocytes # 2.8 K/mm3 (0.7-4.5); Lymphocytes % 21.6 % (10-50); Mean Corpuscular HGB Conc 32.8 g/dL (31.8-35.4); Mean Corpuscular Hemoglobin 28.1 pg (27.0-31.2); Mean Corpuscular Volume 85.9 fl (80-94); Mean Platelet Volume 8.1 fl (7.4-10.4); Monocytes # 1.2 K/mm3 (0.1-1.0); Monocytes % 8.9 % (1.7-9.3); Neutrophils # 8.5 K/mm3 (1.8-7.8); Neutrophils % 65.2 % (37.0-80.0); Platelet Count 608 K/mm3 (142-424); Red Blood Count 3.87 M/mm3 (4.60-6.20); Red Cell Distribution Width 14.2 % (11.5-17.5); White Blood Count 13.1 K/mm3 (4.8-10.8)
--- NOTE | 2022-01-10 11:08 | PC.NURSE ---
Rounded on this pt, therapy in room working with him. Pt nauseous and vomited a small amount. RN aware of request for nausea meds. No other needs voiced at this time.
--- NOTE | 2022-01-10 13:36 | PC.NURSE ---
rounded on patient. patient has just gone back to bed with pt and is currently asleep sitting up in bed. call light within reach along with belongings.
--- NOTE | 2022-01-10 15:43 | PC.NURSE ---
Pt a/o x 4. NAD at this time. Remains on RA. No changes from prior assessment. Dsg's changed to abd (packed) as ordered. Have encouraged pt to be up to chair and use incentive spirometer, Pt has had x 1 episode of nausea and prn zofran given per aug. VSS. Resting w/ eyes closed at this time. CB in reach.
[2022-01-11] VITALS (10 sets, daily range): BP systolic 109–140; BP diastolic 69–80; PULSE 80–91; RESP 16–20; TEMP 36.8–37.1; O2SAT 91–93; BMI 25.0
--- NOTE | 2022-01-11 05:22 | PC.NURSE ---
Pt has rested well this shift. No acute changes from previous assessment. Remains alert and oriented x4. Lung sounds are clear bilaterally and tolerating room air well. Bowel sounds are active in all 4 quads. Pt did c/o nausea and mild pain at the beginning of the shift and was medicated per MAR. Pt being turned Q2HRS and per request. Dressing to midline incision changed. No extremity edema noted.
--- NOTE | 2022-01-11 09:05 | PC.NURSE ---
assisted with pulling patient up in bed. patient states he is feeling better but still so so . patient breakfast tray placed in front of patient and whole milk obtained for patient per his request. no complaints at this time. awaiting for labs, and possible dc today to [facility].
[2022-01-11 09:18] LABS: Basophils # 0.1 K/mm3 (0-0.2); Basophils % 0.6 % (0.1-2.0); Eosinophils # 0.5 K/mm3 (0.0-0.4); Eosinophils % 3.3 % (0.1-12.0); Hematocrit 35.3 % (42.0-52.0); Hemoglobin 11.3 g/dL (14.1-18.0); Lymphocytes # 2.6 K/mm3 (0.7-4.5); Lymphocytes % 18.8 % (10-50); Mean Corpuscular HGB Conc 31.9 g/dL (31.8-35.4); Mean Corpuscular Hemoglobin 28.3 pg (27.0-31.2); Mean Corpuscular Volume 88.7 fl (80-94); Mean Platelet Volume 8.4 fl (7.4-10.4); Monocytes # 1.2 K/mm3 (0.1-1.0); Monocytes % 8.7 % (1.7-9.3); Neutrophils # 9.3 K/mm3 (1.8-7.8); Neutrophils % 68.5 % (37.0-80.0); Platelet Count 670 K/mm3 (142-424); Red Blood Count 3.98 M/mm3 (4.60-6.20); Red Cell Distribution Width 15.2 % (11.5-17.5); White Blood Count 13.6 K/mm3 (4.8-10.8)
--- NOTE | 2022-01-11 11:22 | HMH.ACPN2 ---
Internal Medicine - PN: Subj *Date: 01/11/22 *Time: 11:22 Interval history: FAMILY MEDICINE NOTE: Clinically he is stable. His persistently elevated white blood cell count is impeding the plans for discharge. I discussed his pulmonary status with Dr. Maier. See his note from yesterday. Exam Vital signs and Labs for Last 24 Hours: Temp Pulse Resp BP Pulse Ox 98.3 F 85 16 123/80 92 L 01/11/22 08:00 01/11/22 08:00 01/11/22 08:00 01/11/22 08:00 01/11/22 08:00 Laboratory Results - last 24 hr 01/11/22 09:04: WBC 13.6 H, RBC 3.98 L, Hgb 11.3 L, Hct 35.3 L, MCV 88.7, MCH 28.3, MCHC 31.9, RDW 15.2, Plt Count 670 H, MPV 8.4, Neut % (Auto) 68.5, Lymph % (Auto) 18.8, [place] % (Auto) 8.7, Eos % (Auto) 3.3, Baso % (Auto) 0.6, Neut # (Auto) 9.3 H, Lymph # (Auto) 2.6, [place] # (Auto) 1.2 H, Eos # (Auto) 0.5 H, Baso # (Auto) 0.1 I & O for Last 24 hours: Intake & Output 01/08/22 01/09/22 01/10/22 01/11/22 11:59 11:59 11:59 11:59 Intake Total 2890 / 2890 360 / 360 2010 1392 / 1392 Output Total 2900 / 2900 1320 / 1320 1400 / 1400 1475 / 1475 Balance -10 / -10 -960 / -960 611 / 611 -83 / -83 Weight 184 lb 9.6 oz 180 lb 11.2 oz 172 lb 9.6 oz 178 lb 9 oz - Constitutional no acute distress - *Routine HEENT Exam Head: Present: normocephalic Eye: Present: EOMI, PERRL ENT: Present: mucous membranes moist - *Routine Neck Exam Present: supple. Absent: lymphadenopathy - *Routine Respiratory Exam Present: decreased breath sounds (Specially left base.) - *Routine Cardiovascular Exam Present: RRR - *Routine Abdominal Exam Present: soft, normoactive bowel sounds, tenderness (Less so), ostomy - *Routine Extremities Exam Absent: cyanosis, clubbing, edema - *Routine Skin Exam Present: warm. Absent: rash - *Routine Neurological Exam Present: alert, oriented X3 Assessment and Plan (1) Mass of colon Status: Acute Category: Medical Code(s): K63.89 - Other specified diseases of intestine (2) Dehisced intestinal anastomosis Status: Acute Category: Medical Code(s): K91.89 - Other postprocedural complications and disorders of digestive system; T81.32XA - Disruption of internal operation (surgical) wound, not elsewhere classified, initial encounter (3) Colitis Status: Acute Category: Medical Code(s): K52.9 - Noninfective gastroenteritis and colitis, unspecified (4) Hypokalemia Status: Acute Category: Medical Code(s): E87.6 - Hypokalemia (5) Atelectasis Status: Acute Category: Medical Code(s): J98.11 - Atelectasis (6) Physical deconditioning Status: Acute Category: Medical Code(s): R53.81 - Other malaise (7) Postoperative ileus Status: Acute Category: Medical Code(s): K91.89 - Other postprocedural complications and disorders of digestive system; K56.7 - Ileus, unspecified (8) Abdominal fluid collection Status: Acute Category: Medical Code(s): R18.8 - Other ascites (9) Open wound anterior abdominal wall Status: Acute Category: Medical Code(s): S31.109A - Unspecified open wound of abdominal wall, unspecified quadrant without penetration into peritoneal cavity, initial encounter (10) Hypertension Status: Acute Category: Medical Code(s): I10 - Essential (primary) hypertension - Assessment and plan all Dx Assessment and Plan for all problems:: Stable and awaiting placement. Saline lock IV. He needs to be motivated to be up and about walking and sitting in the chair when he eats.
--- NOTE | 2022-01-11 11:50 | PC.NURSE ---
Spoke with Dr. Marshall. He stated that he just needs a dressing change done once a day.
--- NOTE | 2022-01-11 11:57 | HMH.GSPN ---
Subjective Narrative: Patient without significant complaints. He does state that he had some minor nausea with regular diet this morning. On room air. No shortness of air. Progress Note: A&P (1) Mass of colon Status: Acute (2) Dehisced intestinal anastomosis Status: Acute (3) Colitis Status: Acute (4) Hypokalemia Status: Acute (5) Atelectasis Status: Acute (6) Physical deconditioning Status: Acute (7) Postoperative ileus Status: Acute (8) Abdominal fluid collection Status: Acute (9) Open wound anterior abdominal wall Status: Acute (10) Hypertension Status: Acute Assessment and Plan for All Diagnoses:: Diet advanced to regular diet. IV fluids discontinued. Off oxygen. No fevers and white blood cell count stable slightly above normal parameters. No plan for any additional imaging or intervention at this time. Awaiting placement for rehabilitation Exam Vital signs and Labs for Last 24 Hours: Temp Pulse Resp BP Pulse Ox 98.4 F 90 16 114/79 93 L 01/11/22 11:35 01/11/22 11:35 01/11/22 11:35 01/11/22 11:35 01/11/22 11:35 Laboratory Results - last 24 hr 01/11/22 09:04: WBC 13.6 H, RBC 3.98 L, Hgb 11.3 L, Hct 35.3 L, MCV 88.7, MCH 28.3, MCHC 31.9, RDW 15.2, Plt Count 670 H, MPV 8.4, Neut % (Auto) 68.5, Lymph % (Auto) 18.8, [place] % (Auto) 8.7, Eos % (Auto) 3.3, Baso % (Auto) 0.6, Neut # (Auto) 9.3 H, Lymph # (Auto) 2.6, [place] # (Auto) 1.2 H, Eos # (Auto) 0.5 H, Baso # (Auto) 0.1 I & O for Last 24 hours: Intake & Output 01/08/22 01/09/22 01/10/22 01/11/22 11:59 11:59 11:59 11:59 Intake Total 2890 / 2890 360 / 360 2010 1392 / 1392 Output Total 2900 / 2900 1320 / 1320 1400 / 1400 1475 / 1475 Balance -10 / -10 -960 / -960 611 / 611 -83 / -83 Weight 184 lb 9.6 oz 180 lb 11.2 oz 172 lb 9.6 oz 178 lb 9 oz - Constitutional no acute distress Comments: Patient out of bed to chair. - *Routine Abdominal Exam Comments: Abdomen is soft and nondistended. Ileostomy functioning. Colostomy viable. Wound relatively clean with granulation tissue with minimal superficial necrosis without need for debridement
--- NOTE | 2022-01-11 12:00 | PC.NURSE ---
rounded on patient. he is sitting up in chair with dr napier assess him. once md left assisted patient with sitting up straighter in chair and preparing for lunch. educated on need to walk, and patient agreeable to walk hallway with assistance after lunch, and to take a shower once finished. no concerns or complaints noted. did assess back and noted some shearing on back.
--- NOTE | 2022-01-11 12:12 | P.SWB_ITS ---
Discharge/Transfer - Discharge Disposition: Xfer Short-Term Hosp Condition: Good - Plan of Care Resident has been informed of condition and prognosis?: Yes Mobility Status: ambulatory with assistance Rehab Potential: Good I concur with the most recent H & P: Yes Date of most recent H & P: 12/14/21 Certification: I have reviewed and agree with this resident's plan of care. I certify that post-hospital correction facility services are required to be given on an inpatient basis because of the need for correction care on a continuing basis for the condition(s) for which he/she is receiving inpatient hospital services prior to admission to swing bed. I also certify that the resident meets existing SNF level of care definition.
--- NOTE | 2022-01-11 12:16 | PC.NURSE ---
pt up to chair watching tv awaiting lunch. pt has no complaints/questions at this time.
--- NOTE | 2022-01-11 13:03 | PC.NURSE ---
pt refused IV placement
--- NOTE | 2022-01-11 15:26 | PC.NURSE ---
Spoke with care management and stated that [facility] was waiting for Dr load to decrease before transport pt. They were waiting for update if ability to go tomorrow. Pt updated on plan for discharge. Pt stated that if he was unable to go tomorrow he wishes to go home
--- NOTE | 2022-01-11 16:41 | PC.NURSE ---
Pt A/ox4. He has been up to the chair a few times today. He refused to get his IV changed since he should be leaving tomorrow. He was changed to a regular diet and has felt a little nauseous. He has been in good spirits today.
[2022-01-12] VITALS (7 sets, daily range): BP systolic 93–101; BP diastolic 52–64; PULSE 75–86; RESP 17–20; TEMP 36.4–36.7; O2SAT 93–96; BMI 23.8
--- NOTE | 2022-01-12 06:33 | PC.NURSE ---
PT SLEPT WELL THIS SHIFT. ALERT AND ORIENTED X4. LUNG SOUNDS ARE CLEAR BILATERALLY. ABD IS SOFT AND TENDER. DRESSING CHANGED TO ABD. PT C/O NAUSEA AND PAIN TWICE THIS SHIFT AND WAS MEDICATED PER AUG. WITH THE DOSE THIS AM PT VOMITED FIRST PAIN PILL. A SECON PILL WAS PULLED AND GIVEN, FIRST PILL WAS WASTED. MEDS VERIFIED WITH DANIA ELAINE. PT DID AMBULATE TO THE CHAIR THIS AM. VSS.
--- NOTE | 2022-01-12 07:25 | PC.WOUNDNOTE ---
mid back shearing area noted, dressing applied C/D/I
--- NOTE | 2022-01-12 09:15 | HMH.ACPN2 ---
Internal Medicine - PN: Subj *Date: 01/12/22 *Time: 09:15 Interval history: FAMILY MEDICINE CONSULT: BP'S HAVE BEEN RUNNING LOW AFTER IV WAS SALINE LOCKED. I HAD IN CREASED HIS lISINOPRIL TO 40MG. I RECOMMEND DECREASE BACK TO 20MG DAILY. HE APPEARS DRY. TONGUE IS DRY. Exam Vital signs and Labs for Last 24 Hours: Temp Pulse Resp BP Pulse Ox 97.6 F 84 17 100/62 L 93 L 01/12/22 08:00 01/12/22 08:00 01/12/22 08:00 01/12/22 09:00 01/12/22 08:00 Laboratory Results - last 24 hr 01/11/22 09:04: WBC 13.6 H, RBC 3.98 L, Hgb 11.3 L, Hct 35.3 L, MCV 88.7, MCH 28.3, MCHC 31.9, RDW 15.2, Plt Count 670 H, MPV 8.4, Neut % (Auto) 68.5, Lymph % (Auto) 18.8, [place] % (Auto) 8.7, Eos % (Auto) 3.3, Baso % (Auto) 0.6, Neut # (Auto) 9.3 H, Lymph # (Auto) 2.6, [place] # (Auto) 1.2 H, Eos # (Auto) 0.5 H, Baso # (Auto) 0.1 I & O for Last 24 hours: Intake & Output 01/09/22 01/10/22 01/11/22 01/12/22 11:59 11:59 11:59 11:59 Intake Total 360 / 360 2010 1392 / 1392 240 / 240 Output Total 1320 / 1320 1400 / 1400 1475 / 1475 1300 / 1300 Balance -960 / -960 611 / 611 -83 / -83 -1060 / -1060 Weight 180 lb 11.2 oz 172 lb 9.6 oz 178 lb 9 oz 170 lb 1.6 oz - Constitutional no acute distress - *Routine HEENT Exam Head: Present: normocephalic Eye: Present: EOMI, PERRL ENT: Present: mucous membranes dry - *Routine Neck Exam Present: supple. Absent: lymphadenopathy - *Routine Respiratory Exam Present: CTA bilaterally - *Routine Cardiovascular Exam Present: RRR - *Routine Abdominal Exam Present: soft, normoactive bowel sounds. Absent: tenderness - *Routine Extremities Exam Absent: cyanosis, clubbing, edema - *Routine Skin Exam Present: warm. Absent: rash - *Routine Neurological Exam Present: alert, oriented X3 Assessment and Plan (1) Mass of colon Status: Acute Category: Medical Code(s): K63.89 - Other specified diseases of intestine (2) Dehisced intestinal anastomosis Status: Acute Category: Medical Code(s): K91.89 - Other postprocedural complications and disorders of digestive system; T81.32XA - Disruption of internal operation (surgical) wound, not elsewhere classified, initial encounter (3) Colitis Status: Acute Category: Medical Code(s): K52.9 - Noninfective gastroenteritis and colitis, unspecified (4) Hypokalemia Status: Acute Category: Medical Code(s): E87.6 - Hypokalemia (5) Atelectasis Status: Acute Category: Medical Code(s): J98.11 - Atelectasis (6) Physical deconditioning Status: Acute Category: Medical Code(s): R53.81 - Other malaise (7) Postoperative ileus Status: Acute Category: Medical Code(s): K91.89 - Other postprocedural complications and disorders of digestive system; K56.7 - Ileus, unspecified (8) Abdominal fluid collection Status: Acute Category: Medical Code(s): R18.8 - Other ascites (9) Open wound anterior abdominal wall Status: Acute Category: Medical Code(s): S31.109A - Unspecified open wound of abdominal wall, unspecified quadrant without penetration into peritoneal cavity, initial encounter (10) Hypertension Status: Acute Category: Medical Code(s): I10 - Essential (primary) hypertension - Assessment and plan all Dx Assessment and Plan for all problems:: He HAS BEEN MOVING MORE, SITTING UP IN CHAIR, ETC. We hope for [facility] placement soon.
--- NOTE | 2022-01-12 09:49 | DIET.NUTRFU ---
RD saw patient today to review meal intake. He was showing some improvement with meal intake over weekend but then was only 25% yesterday or worse. Patient continues to c/o nausea, today only got in the orange juice. He is ordered supplements, tired different flavors different brands but seems sick of them. He plans to discharge home today, insurance would not cover rehab. His family will be there to assist him at home, they have some medical experience. RD expressed the importance of meal/protein intake with risk of wt loss and malnutrition d/t poor po intake during length of hospital stay. Sometimes when visit he seems not motivated and depressed, provider aware and celexa in place. No further discharge needs from dietary.
[2022-01-12 11:39] LABS: Basophils # 0.1 K/mm3 (0-0.2); Basophils % 0.8 % (0.1-2.0); Eosinophils # 0.4 K/mm3 (0.0-0.4); Eosinophils % 2.7 % (0.1-12.0); Hematocrit 33.3 % (42.0-52.0); Hemoglobin 11.1 g/dL (14.1-18.0); Lymphocytes # 2.8 K/mm3 (0.7-4.5); Lymphocytes % 19.4 % (10-50); Mean Corpuscular HGB Conc 33.3 g/dL (31.8-35.4); Mean Corpuscular Volume 86.9 fl (80-94); Mean Platelet Volume 8.4 fl (7.4-10.4); Monocytes # 1.3 K/mm3 (0.1-1.0); Monocytes % 8.7 % (1.7-9.3); Neutrophils % 68.3 % (37.0-80.0); Platelet Count 646 K/mm3 (142-424); Red Blood Count 3.83 M/mm3 (4.60-6.20); Red Cell Distribution Width 15.2 % (11.5-17.5); White Blood Count 14.6 K/mm3 (4.8-10.8)
--- NOTE | 2022-01-12 12:21 | HMH.DCSUM ---
General - General Admission date:: 12/14/21 Discharge date: 01/12/22 HPI HPI: Patient is a 51-year-old male who has had approximately a 1 year history of intermittent abdominal issues. He initially had an evaluation at [facility] in November [address] scan revealing findings of possible distal large bowel obstruction. He had undergone flexible sigmoidoscopy by Dr. Rojas Le which revealed no obstructing sigmoid mass. He had a follow-up colonoscopy by Dr. Le in December 2020 which revealed no sigmoid mass but poor colonic preparation. Apparently plans were for possible follow-up barium enema. He had transient resolution of his large bowel obstructive symptoms but then had recurrent symptoms of obstipation, nausea, and abdominal cramping and was admitted to [facility] on 09/30/2021. CT scan revealed abrupt transition in caliber between descending colon and sigmoid colon which may be inflammatory or neoplastic . He had a Gastrografin enema performed on 10/02/2021 which revealed findings of high-grade stricture at the proximal sigmoid colon with irregular borders highly worrisome for neoplasm. Endoscopic correlation recommended. . He had no known history of diverticulitis. It was during his hospitalization in September 2021 at which point surgery at this facility first became involved with the patient. He underwent sigmoidoscopy on 10/03/2021 which revealed extremely poor visualization and poor preparation but no obvious obstructing mass. He had biopsies performed which revealed colon mucosa with ulceration, fibrinopurulent debris, and ischemic pattern. He convalesced and was able to be discharged and underwent full bowel preparation and colonoscopy attempt on 10/27/2021 which revealed thick liquid stool throughout the colon with nonvisualization. He did undergo biopsy after minimal clearing was achieved and this revealed proprial fibrosis and evidence of prior hemorrhage. He did have a follow-up contrast enema which once again revealed severe stricture of the proximal sigmoid colon as read per radiology worrisome for neoplasm. Plan was for follow-up colonoscopy with more aggressive bowel preparation which was scheduled on 12/01/2021. However the patient developed some cramping abdominal pain and was unable to tolerate the prep. He presented to the emergency department where once again CT scan was performed which interestingly once again revealed findings most worrisome for neoplasm involving the mid sigmoid colon with adjacent mildly enlarged lymph nodes that could represent metastatic adenopathy versus reactive adenopathy. Colitis of the descending and proximal sigmoid colon. Due to the fact that he could not tolerate his prep planned outpatient colonoscopy was canceled. He had presented to the office on 12/05/2021. At that time he had quite severe obstipation and cramping pain with bloating. He had tried enemas without results. He was actually taken urgently that day on 12/05/2021 for sigmoidoscopy. There is noted to be some diverticuli and possible mucosal narrowing at approximately 25 cm but no evidence of any definite clearly defined stricture or obstructing mass. The mucosal narrowing was dilated sequentially and thorough transcolonoscopic lavage was carried out of the presumed area of extraluminal narrowing. Patient was placed on bowel regimen. He presented back to the office for follow-up on 12/12/21. Consideration was given for possible repeat sigmoidoscopy and repeat dilatation. Surgical option was discussed as well with the patient. Given the fact that numerous imaging studies at 2 different institutions were concerning for partial distal colon obstruction due to his ongoing symptomatology possible surgical resection was offered to the patient. He did wish to proceed. Plan was for sigmoid colon resection with low pelvic anastomosis and possible ostomy. Hospital Course Hospital Course: Patient w
--- NOTE | 2022-01-12 13:04 | PC.NURSE ---
Spoke with Karma NAJERA at [facility]
--- NOTE | 2022-01-12 14:04 | HMH.GSPN ---
Subjective Narrative: Patient convalescing. Still has had some nausea. Progress Note: A&P (1) Mass of colon Status: Acute (2) Dehisced intestinal anastomosis Status: Acute (3) Colitis Status: Acute (4) Hypokalemia Status: Acute (5) Atelectasis Status: Acute (6) Physical deconditioning Status: Acute (7) Postoperative ileus Status: Acute (8) Abdominal fluid collection Status: Acute (9) Open wound anterior abdominal wall Status: Acute (10) Hypertension Status: Acute Assessment and Plan for All Diagnoses:: Discharge planning Exam Vital signs and Labs for Last 24 Hours: Temp Pulse Resp BP Pulse Ox 97.6 F 77 17 94/64 L 94 L 01/12/22 11:17 01/12/22 11:17 01/12/22 11:17 01/12/22 11:17 01/12/22 11:17 Laboratory Results - last 24 hr 01/12/22 11:20: WBC 14.6 H, RBC 3.83 L, Hgb 11.1 L, Hct 33.3 L, MCV 86.9, MCH 29.0, MCHC 33.3, RDW 15.2, Plt Count 646 H, MPV 8.4, Neut % (Auto) 68.3, Lymph % (Auto) 19.4, [place] % (Auto) 8.7, Eos % (Auto) 2.7, Baso % (Auto) 0.8, Neut # (Auto) 10.0 H, Lymph # (Auto) 2.8, [place] # (Auto) 1.3 H, Eos # (Auto) 0.4, Baso # (Auto) 0.1 I & O for Last 24 hours: Intake & Output 01/10/22 01/11/22 01/12/22 01/13/22 11:59 11:59 11:59 11:59 Intake Total 2010 1392 / 1392 240 / 240 0 / 0 Output Total 1400 / 1400 1475 / 1475 1420 / 1420 Balance 611 / 611 -83 / -83 -1180 / -1180 0 / 0 Weight 172 lb 9.6 oz 178 lb 9 oz 170 lb 1.6 oz - *Routine Abdominal Exam Present: soft Comments: Wound healing with granulation tissue. Minimal necrotic tissue and lower aspect of base. Ileostomy functioning. Colostomy viable.
--- NOTE | 2022-01-12 14:21 | PC.NURSE ---
rounded on patient. discussed he was going to be discharged today. he asked staff to call roselyn about transporting him today to [facility]. spoke with roselyn who stated that she did not think she could tonight but would call us back shortly to let us know for sure.
--- NOTE | 2022-01-12 15:00 | PC.NURSE ---
Spoke with Pt about transport. I explained situation and made pt aware while mother in law was in room. Pt was agreeable to go via ambulance.
--- NOTE | 2022-01-12 15:40 | PC.NURSE ---
Called ambulance for transport
== END 2022-01-12 16:32 | DRG 329 ==
LOC: 2ND 07:35
PROVIDERS: Family Medicine; Internal Medicine Pulmonary Disease; Surgery; Admitting Provider Surgery; PCP Family Medicine; Visit Provider Surgery
PROC: 0DTN0ZZ Resection of Sigmoid Colon, Open Approach (ICD-10-PCS; principal; 2021-12-14 07:30)
PROC: 0D1M0Z4 Bypass Descending Colon to Cutaneous, Open Approach (ICD-10-PCS; CPT 49000; principal; 2021-12-16 08:30)
DX: K56.690 Other partial intestinal obstruction (principal); J18.9 Pneumonia, unspecified organism; K65.9 Peritonitis, unspecified; J98.11 Atelectasis; K91.89 Other postprocedural complications and disorders of digestive system; J90 Pleural effusion, not elsewhere classified; K21.9 Gastro-esophageal reflux disease without esophagitis; K52.9 Noninfective gastroenteritis and colitis, unspecified; K59.00 Constipation, unspecified; I10 Essential (primary) hypertension; E78.5 Hyperlipidemia, unspecified; F17.210 Nicotine dependence, cigarettes, uncomplicated; Y83.2 Surgical operation with anastomosis, bypass or graft as the cause of abnormal reaction of the patient, or of later complication, without mention of misadventure at the time of the procedure; E05.90 Thyrotoxicosis, unspecified without thyrotoxic crisis or storm; K56.7 Ileus, unspecified; E87.6 Hypokalemia; Y95 Nosocomial condition
CPT/HCPCS: 44140; 44310; 44320; 32554; 32555; 36415; 70250; 71045; 71046; 74177; 74430; 75989; 76536; 80048; 80053; 81001; 82042; 82533; 82945; 82962; 83615; 83735; 84155; 84436; 84443; 84479; 84481; 85007; 85025; 85651; 86038; 86850; 87070; 87077; 87081; 87186; 87205; 88112; 88305; 89051; 93005; 94761; 96372; 96374; 97110; 97116; 97163; 97166; 97530; C1729; C1769; C9803; J0131; J1335; J2405; J2543; Q9967; U0003; U0005

== ENCOUNTER 2022-02-18 22:37 | Observation (INO) | payer OTHER, SELFPAY ==
[2022-02-18 22:38] VITALS: BP 112/82; PULSE 101; RESP 16; TEMP 36.5; O2SAT 98; BMI 21.7
--- NOTE | 2022-02-18 23:06 | CT_ITS ---
PROCEDURE INFORMATION: Exam: CT Abdomen And Pelvis With Contrast Exam date and time: 02/18/2022 11:59 PM Age: 51 years old Clinical indication: Abdominal tenderness and vomiting and other: Bile leaking from stoma; Prior surgery; Surgery date: 6+ months; Additional info: Vomiting, abd pain, bile from stoma TECHNIQUE: Imaging protocol: Computed tomography of the abdomen and pelvis with contrast. Radiation optimization: All CT scans at this facility use at least one of these dose optimization techniques: automated exposure control; mA and/or kV adjustment per patient size (includes targeted exams where dose is matched to clinical indication); or iterative reconstruction. Contrast material: ISOVUE; Contrast volume: 75 ml; Contrast route: IV; COMPARISON: CT ABDOMEN PELVIS W CON 01/02/2022 11:15 AM FINDINGS: Pleural spaces: There is pleural scarring and atelectasis in the left lung base. Trace left effusion. Liver: Normal. No mass. Gallbladder and bile ducts: Normal. No calcified stones. No ductal dilation. Pancreas: Atrophic pancreas. Spleen: Normal. No splenomegaly. Adrenal glands: Right adrenal mass likely reflecting adenoma stable from previous study. Kidneys and ureters: 6.5 cm simple cyst right kidney requiring no further follow-up. No hydronephrosis. Non obstructing left renal stone 5 mm. There is no significant right hydronephrosis however there is a 1 mm stone in the proximal right ureter. Stomach and bowel: Left lower quadrant colostomy. There irregular areas of density within the abdomen anteriorly concerning for areas of omental caking. Wall thickening involving the pyloric region and 1st portion of the duodenum which could be due to gastroduodenitis. Postsurgical changes in the rectum. Right lower quadrant ileostomy. Appendix: Normal appendix. Intraperitoneal space: See Stomach and bowel finding. Vasculature: Unremarkable. No abdominal aortic aneurysm. Lymph nodes: Unremarkable. No enlarged lymph nodes. Urinary bladder: . Stones in the urinary bladder. Reproductive: Unremarkable as visualized. Bones/joints: Unremarkable. No acute fracture. Soft tissues: Unremarkable. IMPRESSION: 1. There is no significant right hydronephrosis however there is a 1 mm stone in the proximal right ureter. Correlate clinically for right flank pain. 2. Possible omental caking. 3. Gallbladder normal. 4. No colitis or small bowel obstruction. Right lower quadrant ileostomy and left lower quadrant colostomy. COMMENTS: Consistent with the [place] [employer]'s Incidental Findings Committee white paper (J Am Vivien Radiol 2018): Any incidental renal lesion less than 1 cm or classified as too small to characterize, or any incidental cystic renal lesion characterized as simple-appearing, is likely benign. No follow-up imaging is recommended for these lesions per consensus recommendations based on imaging criteria.
[2022-02-18 23:30] VITALS: BP 110/88; PULSE 96; O2SAT 97
[2022-02-18 23:30] LABS: Basophils # 0.1 K/mm3 (0-0.2); Basophils % 0.8 % (0.1-2.0); Eosinophils # 0.6 K/mm3 (0.0-0.4); Eosinophils % 4.4 % (0.1-12.0); Hematocrit 43.1 % (42.0-52.0); Hemoglobin 13.4 g/dL (14.1-18.0); Lymphocytes # 5.5 K/mm3 (0.7-4.5); Lymphocytes % 37.4 % (10-50); Mean Corpuscular HGB Conc 31.2 g/dL (31.8-35.4); Mean Corpuscular Hemoglobin 25.8 pg (27.0-31.2); Mean Corpuscular Volume 82.7 fl (80-94); Mean Platelet Volume 8.3 fl (7.4-10.4); Monocytes # 1.2 K/mm3 (0.1-1.0); Neutrophils # 7.2 K/mm3 (1.8-7.8); Neutrophils % 49.4 % (37.0-80.0); Platelet Count 542 K/mm3 (142-424); Red Blood Count 5.21 M/mm3 (4.60-6.20); Red Cell Distribution Width 16.5 % (11.5-17.5); White Blood Count 14.6 K/mm3 (4.8-10.8)
[2022-02-18 23:42] LABS: Alanine Aminotransferase 75 U/L (12-78); Albumin Level 4.6 g/dl (3.5-5.0); Albumin/Globulin Ratio 0.9 (1.1-1.8); Alkaline Phosphatase 250 U/L (38-126); Anion Gap 20.1 mEq/L (5-15); Aspartate Amino Transferase 66 U/L (17-59); Bilirubin,Total 0.4 mg/dl (0.2-1.3); Blood Urea Nitrogen 54 mg/dl (9-20); Carbon Dioxide 21 mmol/L (22.0-30.0); Chloride 98 mmol/L (98-107); Estimated Glomerular Filt Rate 58 ml/min (>60); GFR (African American) 70 ML/MIN (>60); Globulin 5.3 g/dL (1.3-3.2); Glucose 122 mg/dl (74-100); Potassium 5.1 mmoL/L (3.5-5.1); Sodium 134 mmol/L (136-145); Total Protein,Serum 9.9 g/dl (6.3-8.2)
[2022-02-18 23:44] LABS: Creatinine Clearance Estimated 66 mL/min (50-200)
[2022-02-18 23:47] LABS: C-Reactive Protein 12.9 mg/L (0-4)
[2022-02-18 23:50] LABS: Calcium 14.7 mg/dl (8.4-10.2)
[2022-02-18 23:55] LABS: Erythrocyte Sedimentation Rate 30 mm/hr (0-20)
[2022-02-19] VITALS (16 sets, daily range): BP systolic 96–177; BP diastolic 59–87; PULSE 63–97; RESP 16–20; TEMP 36.4–36.6; O2SAT 96–98; BMI 21.3
[2022-02-19 00:23] LABS: Microscopic, Urine URINE MICROSCOPIC (MICROSCOPIC)
[2022-02-19 00:30] LABS: Appearance,Urine CLEAR (Clear); Bilirubin,Urine Negative (Negative); Blood, Urine 1+ (Negative); Color,Urine YELLOW (Yellow); Glucose,Urine (UA) Negative (Negative); Ketones,Urine Negative (Negative); Leukocyte Esterase,Urine Negative (Negative); Nitrate,Urine Negative (Negative); PH,Urine 5.5 (5.0-8.5); Protein,Urine TRACE (Negative); Specific Gravity, Urine >= 1.030 (1.005-1.030); Urobilinogen,Urine 0.2 EU/dl (0.2)
[2022-02-19 00:35] LABS: Amorphous Sediment,Urine Trace /lpf; WBC,Urine Occasional #/hpf (0-3)
--- NOTE | 2022-02-19 02:00 | PC.NURSE ---
PATIENT ADMITTED TO DR. MONTGOMERY WITH DX OF ARIELLA, AND CELLULITIS. PATIENT TO BOARD IN ER DUE TO BED AVAILABILITY.
--- NOTE | 2022-02-19 02:01 | HMH.EDGENADL ---
Discharge Plan Disposition Patient Disposition: Admitted As Inpatient Condition: Good Chief Complaint: Skin/Abscess/Foreign Body Clinical Impressions Clinical Impression: Abdominal wall cellulitis, ARIELLA (acute kidney injury), Hypercalcemia Discharge ED Provider: Arlette Mahoney General Adult HPI General Chief complaint: Skin/Abscess/Foreign Body Stated complaint: vomiting, weak Time Seen by Provider: 02/19/22 00:01 Mode of Arrival: Ambulatory Source of Information: Patient and Relative Limitations: No Limitations Description of Symptoms (Recalled from ER Triage Doc. by RN): pt arrived today with a leaking open ileostomy pt is unable to bag the area because the skin around is excoriated the drainage is yellow bile and History of Present Illness HPI narrative: Mr. Lopez is a 51 yo male w/ PMH for colon mass s/p illeosotomy on 11/2021 w/ [facility] surgery and multiple other comorbidities presenting to the ED for leaking from ileostomy complications symptom onset yesterday. Patient reports he is unbale to place a bag around the stoma because the skin is painful and draining a yellow bilious color. Patient also reports non bloody non bilious emesis. Patients daughter, Arlette, also reports he has had reduced appetite with dark urine and generalized weakness. Arlette . No fevers, chills or other infectious like symptoms. Patient reports he is not on active chemotherapy. MD complaint: Stoma complication Onset (ago): day(s) Location: abdomen Severity: moderate Severity scale (1-10): 7 Quality: sharp Consistency: constant Relieving factors: none Exacerbating factors: none Associated symptoms: nausea/vomiting Treatments prior to arrival: none Related Data Home Medications Medication Instructions Recorded Confirmed buspirone 5 mg tablet 5 mg PO TID Anxiety 09/30/21 12/14/21 escitalopram oxalate 10 mg tablet 10 mg PO DAILY Depression 09/30/21 12/14/21 lisinopril 10 mg tablet 10 mg PO DAILY High blood pressure 09/30/21 12/14/21 quetiapine 100 mg tablet 100 mg PO HS sleep 09/30/21 12/14/21 atorvastatin 40 mg tablet 40 mg PO HS Cholesterol 12/14/21 12/14/21 pantoprazole 20 mg tablet,delayed 20 mg PO HS acid reflux 12/14/21 12/14/21 release Previous Rx's Medication Instructions Recorded ondansetron 4 mg disintegrating 4 mg PO TIDP PRN Nausea 7 days #20 11/30/21 tablet tabs Allergies Allergy/AdvReac Type Severity Reaction Status Date / Time aspirin Allergy Verified 12/12/21 09:11 codeine Allergy Verified 12/12/21 09:11 [facility] Social History Smoking Status: Current every day smoker tobacco type: cigarettes packs per day: 1 alcohol intake: never substance use type: denies use 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.) Travel in the last 8 weeks: None household members: children housing: house current occupational exposures/hazards: No caffeine: Yes ROS Obtained: Yes All systems reviewed & no additional complaints except as documented Constitutional Constitutional: Reports system reviewed and no additional complaints, except as documented, Reports poor appetite and Reports weakness Eyes Eyes: Reports system reviewed and no additional complaints, except as documented ENT Ears, Nose, Mouth, and Throat: Reports system reviewed and no additional complaints, except as documented Cardiovascular Cardiovascular: Reports system reviewed and no additional complaints, except as documented Respiratory Respiratory: Reports system reviewed and no additional complaints, except as documented Gastrointestinal Gastrointestingal: Reports system reviewed and no additional complaints, except as documented and vomiting Musculoskeletal Musculoskeletal: Reports system reviewed and no additional complaints, except as documented Neurologic Neurologic: Reports system reviewed and no additional complaints, exc
--- NOTE | 2022-02-19 02:21 | PC.NURSE ---
vat house supervisor notified pt will be boarding in the er @ this time
--- NOTE | 2022-02-19 02:54 | PC.NURSE ---
patient swabbed for COVID, moved into a hospital bed
[2022-02-19 02:58] LABS: Coronavirus 19, PCR Not Detected (NotDetected); Influenza A, PCR Not Detected (NotDetected); Influenza B, PCR Not Detected (NotDetected)
--- NOTE | 2022-02-19 05:25 | PC.NURSE ---
AM labs obtained @ this time
[2022-02-19 05:36] LABS: Basophils # 0.1 K/mm3 (0-0.2); Basophils % 0.6 % (0.1-2.0); Eosinophils # 0.6 K/mm3 (0.0-0.4); Eosinophils % 4.7 % (0.1-12.0); Hematocrit 37.9 % (42.0-52.0); Lymphocytes # 4.6 K/mm3 (0.7-4.5); Mean Corpuscular HGB Conc 31.2 g/dL (31.8-35.4); Mean Corpuscular Hemoglobin 25.9 pg (27.0-31.2); Mean Corpuscular Volume 82.9 fl (80-94); Mean Platelet Volume 8.3 fl (7.4-10.4); Monocytes # 1.1 K/mm3 (0.1-1.0); Monocytes % 7.9 % (1.7-9.3); Neutrophils # 7.2 K/mm3 (1.8-7.8); Neutrophils % 52.9 % (37.0-80.0); Platelet Count 447 K/mm3 (142-424); Red Blood Count 4.58 M/mm3 (4.60-6.20); Red Cell Distribution Width 16.7 % (11.5-17.5); White Blood Count 13.6 K/mm3 (4.8-10.8)
[2022-02-19 05:40] LABS: Hemoglobin 11.8 g/dL (14.1-18.0)
[2022-02-19 05:45] LABS: Anion Gap 14.7 mEq/L (5-15); Blood Urea Nitrogen 51 mg/dl (9-20); Carbon Dioxide 19 mmol/L (22.0-30.0); Chloride 103 mmol/L (98-107); Creatinine Clearance Estimated 71 mL/min (50-200); Estimated Glomerular Filt Rate 63 ml/min (>60); GFR (African American) 77 ML/MIN (>60); Glucose 113 mg/dl (74-100); Magnesium 1.8 mg/dl (1.6-2.3); Potassium 4.7 mmoL/L (3.5-5.1); Sodium 132 mmol/L (136-145)
[2022-02-19 05:48] LABS: Calcium 13.9 mg/dl (8.4-10.2)
--- NOTE | 2022-02-19 05:50 | PC.NURSE ---
calcium 13.9 called by Azar in lab thomas notified. no new orders at this time
--- NOTE | 2022-02-19 07:40 | PC.NURSE ---
checked on pt at this time, pt resting in bed, pt woke up when I entered room. Pt requested something to drink notified pt he has to be NPO per doctors order r/t current diagnosis. Offered mouth swabs.
--- NOTE | 2022-02-19 09:07 | P.CONPHA_ITS ---
Pharmacy Consult Date: 02/19/22 Time: 09:08 Referring provider: SHABANA Reason for Consult:: PT ADMITTED WITH SUSPECTED CELLULITIS. PHARMACY CONSULTED TO MANAGE VANCOMYCIN THERAPY Allergies Allergy/AdvReac Type Severity Reaction Status Date / Time aspirin Allergy Verified 12/12/21 09:11 codeine Allergy Verified 12/12/21 09:11 Home Medications Medication Instructions Recorded Confirmed Type buspirone 5 mg tablet 5 mg PO TID Anxiety 09/30/21 12/14/21 History escitalopram oxalate 10 mg tablet 10 mg PO DAILY Depression 09/30/21 12/14/21 History lisinopril 10 mg tablet 10 mg PO DAILY High blood pressure 09/30/21 12/14/21 History quetiapine 100 mg tablet 100 mg PO HS sleep 09/30/21 12/14/21 History ondansetron 4 mg disintegrating 4 mg PO TIDP PRN Nausea 7 days #20 11/30/21 12/14/21 Rx tablet tabs atorvastatin 40 mg tablet 40 mg PO HS Cholesterol 12/14/21 12/14/21 History pantoprazole 20 mg tablet,delayed 20 mg PO HS acid reflux 12/14/21 12/14/21 History release New Prescriptions to Start Prescriptions: Height: 1.8 m Weight: 70.76 kg Laboratory Results:: Laboratory Results - last 24 hr 02/18/22 23:10: WBC 14.6 H, RBC 5.21, Hgb 13.4 L, Hct 43.1, MCV 82.7, MCH 25.8 L , MCHC 31.2 L, RDW 16.5, Plt Count 542 H, MPV 8.3, Neut % (Auto) 49.4, Lymph % (Auto) 37.4, [place] % (Auto) 8.0, Eos % (Auto) 4.4, Baso % (Auto) 0.8, Neut # (Auto) 7.2, Lymph # (Auto) 5.5 H, [place] # (Auto) 1.2 H, Eos # (Auto) 0.6 H, Baso # (Auto) 0.1, ESR 30 H 02/18/22 23:10: Sodium 134 L, Potassium 5.1, Chloride 98, Carbon Dioxide 21 L, Anion Gap 20.1 H, BUN 54 H, Creatinine 1.30 H, Estimated Creat Clear 66, Estimated GFR 58 L, Est GFR ( Amer) 70, Glucose 122 H, Calcium 14.7 H*, Total Bilirubin 0.4, AST 66 H, ALT 75, Alkaline Phosphatase 250 H, C-Reactive Protein 12.9 H, Total Protein 9.9 H D, Albumin 4.6, Globulin 5.3 H, Albumin/Globulin Ratio 0.9 L 02/18/22 23:10: Lactate 2.0 02/19/22 00:16: Urine Color Yellow, Urine Appearance Clear, Urine pH 5.5, Ur Specific [place] >= 1.030, Urine Protein Trace, Urine Glucose (UA) Negative, Urine Ketones Negative, Urine Blood 1+, Urine Nitrate Negative, Urine Bilirubin Negative, Urine Urobilinogen 0.2, Ur Leukocyte Esterase Negative, Urine RBC 10- 20, Urine WBC Occasional, Amorphous Sediment Trace 02/19/22 02:47: SARS-CoV-2 (PCR) Not detected, Influenza A Untype (PCR) Not detected, Influenza Type B (PCR) Not detected 02/19/22 05:26: WBC 13.6 H, RBC 4.58 L, Hgb 11.8 L D, Hct 37.9 L, MCV 82.9, MCH 25.9 L, MCHC 31.2 L, RDW 16.7, Plt Count 447 H, MPV 8.3, Neut % (Auto) 52.9, Lymph % (Auto) 34.0, [place] % (Auto) 7.9, Eos % (Auto) 4.7, Baso % (Auto) 0.6, Neut # (Auto) 7.2, Lymph # (Auto) 4.6 H, [place] # (Auto) 1.1 H, Eos # (Auto) 0.6 H , Baso # (Auto) 0.1 02/19/22 05:26: Sodium 132 L, Potassium 4.7, Chloride 103, Carbon Dioxide 19 L, Anion Gap 14.7, BUN 51 H, Creatinine 1.20, Estimated Creat Clear 71, Estimated GFR 63, Est GFR ( Amer) 77, Glucose 113 H, Calcium 13.9 H*, Magnesium 1.8 02/19/22 08:25: Lactate 1.0 Assessment and Plan Assessment and plan (1) Abdominal wall cellulitis: Status: Acute Category: Medical Code(s): L03.311 - Cellulitis of abdominal wall Plan PT RECV'D VANCOMYCIN 1250MG AND ZOSYN 3.375GM IN ER THIS AM. WILL CONTINUE VANCOMYCIN 1250MG EVERY 12 HOURS. PHARMACY WILL FOLLOW DAILY AND ADJUST NECCESSARY.
--- NOTE | 2022-02-19 09:53 | PC.NURSE ---
bar machine operator production paging dr. napier
--- NOTE | 2022-02-19 09:57 | PC.NURSE ---
spoke with dr. marshall at this time, notified him of surgical consult ordered on pt. Notified him of pt presenting c/o and admitting diagnosis. ER MD (Denzel) had stated to keep pt NPO until surgical consult. Notified Dr. Marshall of NPO status states since pt has had no vomitting pt can start on Full liquids.
--- NOTE | 2022-02-19 11:00 | PC.NURSE ---
pt resting appears to be sleeping resp even and easy
--- NOTE | 2022-02-19 11:09 | PC.NURSE ---
per house principal no bed assignment available for pt at this time, awaiting possible d/c on second floor.
--- NOTE | 2022-02-19 11:36 | PC.NURSE ---
Dr. Otero at
--- NOTE | 2022-02-19 11:57 | EXP.HP ---
History of Present Illness *Admission Date: 02/19/22 *Reason for visit:: Leaking around ileostomy *History of present illness: Mr. Lopez is a 51 year old male with a complicated recent medical history. He has had multiple operations and hospitalizations in the past 3 months. At he end of November 2021 he had surgery due to a colonic mass, at that time a diverting ileostomy was placed, a few days afterwards he was diagnosed with dehisced anastomosis and an end colostomy was placed. He had a prolonged postoperative course here at [facility], see Dr. Marshall's discharge summary from 01/12/22, that was complicated by an intra abdominal pseudomonas infection. He was discharged to [facility] in [place] for short term rehab. He states after being there a week he was sent to hospital for evaluation of persistent vomiting and was found to have an infection near his liver. He was at for almost 2 weeks. He was sent back to [facility] and was discharged home on February 10. He states he has continued to have problems with vomiting and feels like he has been dehydrated. On the day of admission he was having problems sealing a bad around his ileostomy site and noticed redness of the skin so he came to the ER at [facility] for further evaluation. Dr. Marshall was consulted by the ER physisican. 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.) Travel in the last 8 weeks: None household members: children housing: house current occupational exposures/hazards: No caffeine: Yes Review of Systems Constitutional Constitutional: Reports weakness Eyes Eyes: Denies blurry vision ENT Ears, Nose, Mouth, and Throat: Denies abnormal hearing and Denies vertigo *Cardiovascular Cardiovascular: Denies chest pain and Denies dyspnea *Respiratory Respiratory: Denies dyspnea *Gastrointestinal Gastrointestinal: Reports as per HPI *Genitourinary Genitourinary: Denies hematuria *Musculoskeletal Musculoskeletal: Reports muscle weakness Integumentary/Breasts Skin/Breast: Reports as per HPI *Neurologic Neurologic: Denies abnormal hearing, Denies confusion, Denies vertigo and Reports weakness Psychiatric Psychiatric: Denies confusion Meds Home Medications and Allergies Home Medications Medication Instructions Recorded Confirmed Type buspirone 5 mg tablet 5 mg PO TID Anxiety 09/30/21 02/19/22 History escitalopram oxalate 10 mg tablet 10 mg PO DAILY Depression 09/30/21 02/19/22 History lisinopril 10 mg tablet 10 mg PO DAILY High blood pressure 09/30/21 02/19/22 History quetiapine 100 mg tablet 100 mg PO HS sleep 09/30/21 02/19/22 History ondansetron 4 mg disintegrating 4 mg PO TIDP PRN Nausea 7 days #20 11/30/21 02/19/22 Rx tablet tabs atorvastatin 40 mg tablet 40 mg PO HS Cholesterol 12/14/21 02/19/22 History pantoprazole 20 mg tablet,delayed 20 mg PO HS acid reflux 12/14/21 02/19/22 History release New Prescriptions to Start Prescriptions: Allergies Allergy/AdvReac Type Severity Reaction Status Date / Time aspirin Allergy Verified 12/12/21 09:11 codeine Allergy Verified 12/12/21 09:11 Exam Data for Last 24 hours Vital signs and Labs for Last 24 Hours: Temp Pulse Resp BP Pulse Ox 97.7 F 75 18 109/85 L 97 02/18/22 22:38 02/19/22 10:00 02/19/22 10:00 02/19/22 10:00 02/19/22 10:00 Laboratory Results - l
--- NOTE | 2022-02-19 12:00 | PC.NURSE ---
pt with drainage at ostomy sites yellow drainage. pt c/o burning type pain around sites. redness noted. linens changed. 4x4s applied around sites of ostomy sites.
--- NOTE | 2022-02-19 12:10 | EXP.SURG.CON ---
History of Present Illness *Admission Date: 02/19/22 *History of present illness: Patient is a 51-year-old male who has had a complex history of abdominal issues for a little bit over a year. He had initially undergone evaluation at [facility] in November 2020 and had a work-up done which revealed findings of distal large bowel obstruction. He had undergone work-up by the surgeon at that facility at that time, Dr. Rojas Le, and was never able to identify any obstructing mass. Patient had been admitted to [facility] on 09/30/2021 and he had findings on imaging of possible distal colon partial obstruction. He had undergone flexible sigmoidoscopy and more than 1 colonoscopy which revealed no evidence of any obstructing mass. He continued to have symptoms of intermittent large bowel obstruction. He was seen as an outpatient and given the fact that numerous imaging studies at 2 different institutions were concerning for partial distal colon obstruction and due to his ongoing symptomatology patient wished to pursue surgical intervention. He was taken to the operating room on 12/14/2021 for planned colon resection and underwent laparotomy with distal sigmoid colon resection. He was found to have inflammatory mass at the distal sigmoid colon. Anastomosis was performed with oversewing of the anastomosis and there is no evidence of any leak. Patient did have a proximal diverting ileostomy created at that time given the tenuous nature of his anastomosis. 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 On postoperative day #2, 12/16/2021, the patient had abdominal soreness and chills and tachycardia therefore was taken back to the operating room at which time he was found to have anastomotic leak with appreciable amount of feces and undigested vegetable matter throughout the abdomen. He underwent thorough abdominal washout and creation of end colostomy. He had a prolonged hospital course with slow convalescence. Patient's motivational status was suboptimal. He had shown signs of deconditioning. Ultimately he underwent placement of radiology directed drain in 2 fluid collection inferior to the right lobe of the liver on 12/27/2021. Cultures returned as Pseudomonas aeruginosa. This drain as well as his operative drains were removed prior to discharge. Patient had ultimately been accepted for short-term rehabilitation at [facility]. He was discharged for short-term rehabilitation at [facility] on 01/12/2022. Apparently after the patient was at [facility] for about 1 week he was sent to [facility] for evaluation of persistent vomiting and there was an apparent infection near his liver. He apparently had radiology directed drain placed. He was hospitalized at [facility] for about 2 weeks and then discharged back to [facility] where he remained until discharge on 02/10/2022. Patient had presented to the emergency department overnight due to some vomiting and some redness of the skin around the ileostomy site. He was admitted for inpatient management and surgical consultation. He states that his nausea and vomiting has subsequently subsided. 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
--- NOTE | 2022-02-19 12:12 | PC.NURSE ---
report called to floor
--- NOTE | 2022-02-19 12:32 | PC.NURSE ---
patient arrived to floor by stretcher from ED
--- NOTE | 2022-02-19 12:36 | PC.NURSE ---
MD Marshall at bedside for surgery consult
--- NOTE | 2022-02-19 12:37 | PC.NURSE ---
Transported pt up to room
[2022-02-19 12:46] LABS: Lactic Acid 1.2 mmol/L (0.7-2.1)
--- NOTE | 2022-02-19 18:08 | PC.NURSE ---
Pt has done well since arriving back to the floor. VSS. Dressing changes performed on ileostomy and colostomy as well as midline incision. Pt has had a fair appetite and has tolerated his diet well. No other acute changes.
--- NOTE | 2022-02-19 20:18 | PC.NURSE ---
called dr wilkins to resume pts home meds as prescribed, dr wilkins stated may resume all home meds repeated and verified.
[2022-02-20 04:00] VITALS: BP 111/65; PULSE 68; RESP 18; TEMP 36.5; O2SAT 98
--- NOTE | 2022-02-20 04:00 | PC.NURSE ---
A&OX4. TOLERATING RA WELL. PT C/O ABD PAIN X1 AT BEGINNING OF SHIFT, TX PER AUG. RELIEF NOTED. BOWEL SOUNDS ACTIVE PER AUSCULTATION. PT IS PASSING LOOSE STOOL THROUGH ILIOSTOMY BAG. PT HAS SLEPT MAJORITY OF SHIFT. DRESSINGS CDI. RECEIVING ABX AND FLUIDS PER MAR. UP INDEPENDENTLY IN ROOM. NO OTHER NEEDS OR C/O NOTED THUS FAR.
[2022-02-20 07:02] LABS: Basophils # 0.1 K/mm3 (0-0.2); Basophils % 0.6 % (0.1-2.0); Eosinophils # 0.8 K/mm3 (0.0-0.4); Eosinophils % 8.4 % (0.1-12.0); Hematocrit 35.4 % (42.0-52.0); Hemoglobin 10.8 g/dL (14.1-18.0); Lymphocytes # 2.2 K/mm3 (0.7-4.5); Lymphocytes % 24.1 % (10-50); Mean Corpuscular HGB Conc 30.4 g/dL (31.8-35.4); Mean Corpuscular Hemoglobin 25.5 pg (27.0-31.2); Mean Corpuscular Volume 83.8 fl (80-94); Mean Platelet Volume 7.9 fl (7.4-10.4); Monocytes # 0.8 K/mm3 (0.1-1.0); Monocytes % 8.3 % (1.7-9.3); Neutrophils # 5.4 K/mm3 (1.8-7.8); Neutrophils % 58.6 % (37.0-80.0); Platelet Count 363 K/mm3 (142-424); Red Blood Count 4.22 M/mm3 (4.60-6.20); Red Cell Distribution Width 16.6 % (11.5-17.5); White Blood Count 9.3 K/mm3 (4.8-10.8)
[2022-02-20 07:14] LABS: Blood Urea Nitrogen 40 mg/dl (9-20); Carbon Dioxide 18 mmol/L (22.0-30.0); Chloride 110 mmol/L (98-107); Creatinine Clearance Estimated 84 mL/min (50-200); Estimated Glomerular Filt Rate 78 ml/min (>60); GFR (African American) 95 ML/MIN (>60); Glucose 90 mg/dl (74-100); Magnesium 1.7 mg/dl (1.6-2.3); Sodium 133 mmol/L (136-145)
[2022-02-20 07:38] VITALS: BP 143/59; PULSE 75; RESP 17; TEMP 36.9; O2SAT 99
--- NOTE | 2022-02-20 08:48 | P.PN_ITS ---
Subjective Patient reports: no new complaints Narrative: He did require ileostomy appliance change due to leaking from the connection overnight. No additional leakage. Tolerating a regular diet. Exam Data for Last 24 hours Vital signs and Labs for Last 24 Hours: Temp Pulse Resp BP Pulse Ox 98.4 F 75 17 143/59 H 99 02/20/22 07:38 02/20/22 07:38 02/20/22 07:38 02/20/22 07:38 02/20/22 07:38 Laboratory Results - last 24 hr 02/19/22 12:25: Lactate 1.2 02/20/22 06:46: WBC 9.3 D, RBC 4.22 L, Hgb 10.8 L, Hct 35.4 L, MCV 83.8, MCH 25.5 L, MCHC 30.4 L, RDW 16.6, Plt Count 363, MPV 7.9, Neut % (Auto) 58.6, Lymph % (Auto) 24.1, [place] % (Auto) 8.3, Eos % (Auto) 8.4, Baso % (Auto) 0.6, Neut # (Auto) 5.4, Lymph # (Auto) 2.2, [place] # (Auto) 0.8, Eos # (Auto) 0.8 H, Baso # (Auto) 0.1 02/20/22 06:46: Sodium 133 L, Potassium 4.0, Chloride 110 H, Carbon Dioxide 18 L , Anion Gap 9.0, BUN 40 H, Creatinine 1.00, Estimated Creat Clear 84, Estimated GFR 78, Est GFR ( Amer) 95 D, Glucose 90, Calcium 13.0 H*, Magnesium 1.7 I & O for Last 24 hours: Intake & Output 02/17/22 02/18/22 02/19/22 02/20/22 11:59 11:59 11:59 11:59 Intake Total 1763 / 1763 Output Total 875 / 875 Balance 888 / 888 Weight 156 lb 153 lb 2 oz *Routine Abdominal Exam Comments: Ileostomy functioning well and good seal Progress Note: A&P Assessment and plan (1) Ileostomy dysfunction: Status: Acute Assessment and plan: Patient's ileostomy appliance appears to be intact with good seal at this time. Could benefit from using convex type appliance. May need skin barrier on irritated skin.
--- NOTE | 2022-02-20 09:10 | P.PN_ITS ---
Subjective *Date: 02/20/22 *Time: 09:13 Interval history: Patient feels better this morning, tolerating a regular diet so far. Medical Exam Vital signs and Labs for Last 24 Hours: Temp Pulse Resp BP Pulse Ox 98.4 F 75 17 143/59 H 99 02/20/22 07:38 02/20/22 07:38 02/20/22 07:38 02/20/22 07:38 02/20/22 07:38 Laboratory Results - last 24 hr 02/19/22 12:25: Lactate 1.2 02/20/22 06:46: WBC 9.3 D, RBC 4.22 L, Hgb 10.8 L, Hct 35.4 L, MCV 83.8, MCH 25.5 L, MCHC 30.4 L, RDW 16.6, Plt Count 363, MPV 7.9, Neut % (Auto) 58.6, Lymph % (Auto) 24.1, [place] % (Auto) 8.3, Eos % (Auto) 8.4, Baso % (Auto) 0.6, Neut # (Auto) 5.4, Lymph # (Auto) 2.2, [place] # (Auto) 0.8, Eos # (Auto) 0.8 H, Baso # (Auto) 0.1 02/20/22 06:46: Sodium 133 L, Potassium 4.0, Chloride 110 H, Carbon Dioxide 18 L , Anion Gap 9.0, BUN 40 H, Creatinine 1.00, Estimated Creat Clear 84, Estimated GFR 78, Est GFR ( Amer) 95 D, Glucose 90, Calcium 13.0 H*, Magnesium 1.7 I & O for Labs for Last 24 Hours: Intake & Output 02/17/22 02/18/22 02/19/22 02/20/22 23:59 23:59 23:59 23:59 Intake Total 240 / 240 1523 / 1523 Output Total 650 / 650 575 / 575 Balance -410 / -410 948 / 948 Weight 156 lb 153 lb 2 oz Constitutional: no acute distress and cooperative Respiratory: CTA bilaterally Cardiac: Reg Rate and Rhythm Assessment and Plan *Assessment and plan (1) Vomiting: Status: Acute Category: Medical Code(s): R11.10 - Vomiting, unspecified (2) ARIELLA (acute kidney injury): Status: Acute Category: Medical Code(s): N17.9 - Acute kidney failure, unspecified (3) Hypercalcemia: Status: Acute Category: Medical Code(s): E83.52 - Hypercalcemia (4) Ileostomy in place: Status: Acute Category: Medical Code(s): Z93.2 - Ileostomy status (5) Colostomy in place: Status: Acute Category: Medical Code(s): Z93.3 - Colostomy status (6) Physical deconditioning: Status: Acute Category: Medical Code(s): R53.81 - Other malaise Assessment and plan all Dx Assessment and Plan All Dx:: Plan to stop antibiotics and possible discharge patient today as he does not have abdominal wall cellulitis. He needs ostomy care. Spoke with Dr. Marshall.
--- NOTE | 2022-02-20 12:54 | PC.NURSE ---
rounded on patient. education done on colostomy care. patient appears to have a good understanding of applying/changing appliances. assisted patient with burping bag and emptying some of the stool from bag. patient able to properly explain and voice back teachings. tips given on avoiding leaking. stoma adhesive cream ect. patient had no further questions at this time.
[2022-02-20 14:48] VITALS: BP 81/57; PULSE 75; RESP 17; TEMP 36.5; O2SAT 97
[2022-02-20 15:09] VITALS: BP 100/60
--- NOTE | 2022-02-20 15:21 | PC.NURSE ---
Pt's ride will not be here until 1600 or 1630. She is going to be part of teaching for his ostomy or ileostomy care.
--- NOTE | 2022-02-20 15:49 | HMH.PHAINT1 ---
Pharmacy Intervention Comments: DISCHARGE MEDICATION COUNSELING PROVIDED. DISCUSSED THERE WERE NO CHANGES TO CURRENT MEDICATION REGIMEN. PATIENT VERBALIZED NO QUESTIONS AT THIS TIME.
--- NOTE | 2022-02-20 21:39 | EXP.DC.SUM ---
General Admission date:: 02/19/22 Discharge date: 02/20/22 HPI HPI HPI: Patient is a 51-year-old male who has had a complex history of abdominal issues for a little bit over a year. He had initially undergone evaluation at [facility] in November 2020 and had a work-up done which revealed findings of distal large bowel obstruction. He had undergone work-up by the surgeon at that facility at that time, Dr. Rojas Le, and was never able to identify any obstructing mass. Patient had been admitted to [facility] on 09/30/2021 and he had findings on imaging of possible distal colon partial obstruction. He had undergone flexible sigmoidoscopy and more than 1 colonoscopy which revealed no evidence of any obstructing mass. He continued to have symptoms of intermittent large bowel obstruction. He was seen as an outpatient and given the fact that numerous imaging studies at 2 different institutions were concerning for partial distal colon obstruction and due to his ongoing symptomatology patient wished to pursue surgical intervention. He was taken to the operating room on 12/14/2021 for planned colon resection and underwent laparotomy with distal sigmoid colon resection. He was found to have inflammatory mass at the distal sigmoid colon. Anastomosis was performed with oversewing of the anastomosis and there is no evidence of any leak. Patient did have a proximal diverting ileostomy created at that time given the tenuous nature of his anastomosis. 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 On postoperative day #2, 12/16/2021, the patient had abdominal soreness and chills and tachycardia therefore was taken back to the operating room at which time he was found to have anastomotic leak with appreciable amount of feces and undigested vegetable matter throughout the abdomen. He underwent thorough abdominal washout and creation of end colostomy. He had a prolonged hospital course with slow convalescence. Patient's motivational status was suboptimal. He had shown signs of deconditioning. Ultimately he underwent placement of radiology directed drain in 2 fluid collection inferior to the right lobe of the liver on 12/27/2021. Cultures returned as Pseudomonas aeruginosa. This drain as well as his operative drains were removed prior to discharge. Patient had ultimately been accepted for short-term rehabilitation at [facility]. He was discharged for short-term rehabilitation at [facility] on 01/12/2022. Apparently after the patient was at [facility] for about 1 week he was sent to [facility] for evaluation of persistent vomiting and there was an apparent infection near his liver. He apparently had radiology directed drain placed. He was hospitalized at [facility] for about 2 weeks and then discharged back to [facility] where he remained until discharge on 02/10/2022. Patient had presented to the emergency department overnight due to some vomiting and some redness of the skin around the ileostomy site. He was admitted for inpatient management and surgical consultation. He states that his nausea and vomiting has subsequently subsided. Hospital Course Hospital Course Hospital Course: The patient was admitted for further evaluation and management of cellulitis of the abdominal wall. He was empirically started on vancomycin and Zosyn. It was unclear initially if the skin changes were from infection or irritation from liquid draining from his ileostomy bag. He had had continued vomiting and acute kidney injury likely due to dehydration. Surgery was consulted. He was seen in consultation by Dr. Marshall who felt he had complete disruption of the seal of the ileostomy appliance with spillage of feculent liquid all over his abdomen. He had a healthy but somewhat retracted ileostomy in the right lower quadrant which
--- NOTE | 2022-02-21 13:56 | CARE MANAGER ---
Contacted patient related to hospital discharge. He states he is doing well. He denies any questions or concerns. He did not get any new meds and is aware of his follow up appointments. DANIA Umanzor
== END 2022-02-20 16:57 | disposition home or self-care (01) ==
LOC: ER 22:50 → 2ND 02-19 02:06
PROVIDERS: Admitting Provider Family Medicine; Emergency Provider Student in an Organized Health Care Education/Training Program; PCP Family Medicine; Visit Provider Family Medicine
DX: L24.B3 Irritant contact dermatitis related to fecal or urinary stoma or fistula (principal); L03.311 Cellulitis of abdominal wall; R11.10 Vomiting, unspecified; N17.9 Acute kidney failure, unspecified; Z93.3 Colostomy status; F17.210 Nicotine dependence, cigarettes, uncomplicated; E83.52 Hypercalcemia; Z93.2 Ileostomy status
CPT/HCPCS: 36415; 74177; 80048; 80053; 81001; 83605; 83735; 85025; 85651; 86140; 99285; C9803; G0378; J2405; J2543; Q9967; U0003; U0005

== ENCOUNTER 2022-02-22 08:00 | Outpatient (RCR) | payer OTHER, SELFPAY | END 2022-02-22 08:05 | disposition home or self-care (01) | LOC: PT 08:00 | PROVIDERS: PCP Family Medicine; Visit Provider Physical Medicine & Rehabilitation | DX: L03.311 Cellulitis of abdominal wall (principal) | CPT/HCPCS: 97163; 97597 ==

== ENCOUNTER 2022-02-27 10:02 | Inpatient (IN) | payer OTHER, SELFPAY ==
[2022-02-27] VITALS (14 sets, daily range): BP systolic 103–159; BP diastolic 70–117; PULSE 67–80; RESP 15–24; TEMP 36.2–37; O2SAT 96–99; BMI 20.9; BMI 19.8
--- NOTE | 2022-02-27 10:28 | PC.NURSE ---
Dr Marshall paged
--- NOTE | 2022-02-27 10:29 | HMH.EDGENADL ---
Discharge Plan Disposition Patient Disposition: Admitted As Inpatient Condition: Fair Clinical Impressions Clinical Impression: Hypercalcemia, Acute kidney injury Discharge ED Provider: Gokul Lowe General Adult HPI General Chief complaint: Nausea/Vomiting/Diarrhea Stated complaint: nausea,vomiting Time Seen by Provider: 02/27/22 10:32 Mode of Arrival: EMS Source of Information: Patient Limitations: No Limitations Description of Symptoms (Recalled from ER Triage Doc. by RN): Pt c/o nausea that began last night. Reports hx of extensive bowel surgeries. Denies abd pain. States that he had an appt this AM at 0915 with his surgeon for follow up, but cancelled r/t nausea History of Present Illness HPI narrative: Presents complaining of vomiting that began last night. He notes several episodes and describes symptoms as severe. He denies diarrhea or associated abdominal pain. He status post previous colostomy and ileostomy for an abdominal mass that he states was nonignorant. In January of this year he reportedly had hepatic abscess and was septic. Related Data Home Medications Medication Instructions Recorded Confirmed escitalopram oxalate 10 mg tablet 10 mg PO DAILY Depression 09/30/21 02/27/22 (Lexapro) quetiapine 100 mg tablet (Seroquel) 100 mg PO HS Insomnia 09/30/21 02/27/22 atorvastatin 40 mg tablet (Lipitor) 40 mg PO HS Cholesterol 12/14/21 02/27/22 pantoprazole 20 mg tablet,delayed 20 mg PO HS acid reflux 12/14/21 02/27/22 release (Protonix) melatonin 3 mg tablet 3 mg PO HS Insomnia 02/19/22 02/27/22 oxycodone 5 mg tablet 5 mg PO Q6H PRN Pain 02/19/22 02/27/22 Allergies Allergy/AdvReac Type Severity Reaction Status Date / Time aspirin Allergy Verified 12/12/21 09:11 codeine Allergy Verified 12/12/21 09:11 [facility] Medical History ARIELLA (acute kidney injury) Colostomy in place Dehisced intestinal anastomosis Depressed Hypercalcemia Hyperlipemia Hypertension Ileostomy in place Intra-abdominal abscess post-procedure Mass of colon Physical deconditioning Vasectomy planned Surgical History (Updated 02/19/22 @ 12:13 by David Otero MD) Status post partial colectomy Family History Other No significant family history Social History Smoking Status: Current every day smoker tobacco type: cigarettes packs per day: 2 years smoked: 40 alcohol intake: never substance use type: denies use current occupational status: unemployed and 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[employer] , 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.) Travel in the last 8 weeks: None household members: children housing: house current occupational exposures/hazards: No caffeine: Yes ROS Obtained: Yes All systems reviewed & no additional complaints except as documented Constitutional Constitutional: Reports system reviewed and no additional complaints, except as documented and Reports as per HPI Physical Exam Narrative Physical exam: Is a lean body habitus General General appearance: alert Head Head exam: atraumatic Eye Eye exam: Present normal appearance ENT ENT exam: Present normal exam Neck Neck exam: Present normal inspection Chest Chest inspection: Present normal inspection Respiratory Respiratory exam: Present normal lung sounds bilaterally Cardiovascular Cardiovascular exam: Present regular rate and normal rhythm Abdominal Exam Abdominal exam: Present soft and other (Ileostomy is noted. There is a dressing over the left abdominal wall where he states there is an ongoing colostomy. Bowel sounds are somewhat diminished.); Absent tenderness Back Exam Back exam: Present normal inspection Neurological Exam Neurological exam: Present alert and oriented X3 Psychiatric Psychiatric exam: Present normal affect Skin Skin exam: Present warm and dry Lymphatic Lymphatic Findin
--- NOTE | 2022-02-27 10:37 | CT_ITS ---
FINAL REPORT CLINICAL HISTORY: vomiting COMPARISON: 02/19/2022 FINDINGS: Axial CT images of the abdomen and pelvis were obtained without intravenous contrast. Oral contrast was administered Coronal reformatted images were also obtained.This study was performed with techniques to keep radiation doses as low as reasonably achievable (ALARA). Individualized dose reduction techniques using automated exposure control or adjustment of mA and/or kV according to the patient's size were employed. Abdomen: There is bibasilar atelectasis or scarring. A small left pleural effusion is present. The liver, spleen and pancreas have an unremarkable, unenhanced appearance. The gallbladder is present. There are multiple bilateral nonobstructing stones. The largest on the right measures 8 mm. There is no hydronephrosis. There is a large cyst in the lower pole of the right kidney. There are postoperative changes with bilateral ostomies. There is stranding of the omentum which is stable and of uncertain significance. This is worrisome for omental neoplastic involvement. Postoperative changes could have a similar appearance. Pelvis: There is a 1-2 mm stone at the right UVJ. There is a presumed calcification within the urinary bladder. The appendix is unremarkable. There is no free fluid or adenopathy. IMPRESSION: Previously seen right-sided stone now at the right UVJ without significant hydronephrosis. Other stable findings. Reviewed, Interpreted and Dictated by Arsenio Garcias III, MD Transcribed by Luz Woods Authenticated and [facility]
--- NOTE | 2022-02-27 10:52 | PC.NURSE ---
contrast administered, rad notified
[2022-02-27 11:55] LABS: Chloride 91 mmol/L (98-107)
[2022-02-27 11:56] LABS: Basophils # 0.2 K/mm3 (0-0.2); Basophils % 1.1 % (0.1-2.0); Eosinophils # 0.3 K/mm3 (0.0-0.4); Eosinophils % 1.6 % (0.1-12.0); Hemoglobin 15.1 g/dL (14.1-18.0); Lymphocytes % 39.7 % (10-50); Mean Corpuscular Hemoglobin 26.6 pg (27.0-31.2); Mean Corpuscular Volume 83.2 fl (80-94); Mean Platelet Volume 9.4 fl (7.4-10.4); Monocytes # 1.3 K/mm3 (0.1-1.0); Monocytes % 7.1 % (1.7-9.3); Neutrophils # 8.9 K/mm3 (1.8-7.8); Neutrophils % 50.4 % (37.0-80.0); Platelet Count 523 K/mm3 (142-424); Red Blood Count 5.66 M/mm3 (4.60-6.20); Red Cell Distribution Width 17.1 % (11.5-17.5); Sodium 131 mmol/L (136-145); White Blood Count 17.6 K/mm3 (4.8-10.8)
[2022-02-27 11:58] LABS: Alanine Aminotransferase 47 U/L (12-78); Aspartate Amino Transferase 42 U/L (17-59)
[2022-02-27 11:59] LABS: Albumin Level 5.1 g/dl (3.5-5.0); Albumin/Globulin Ratio 0.9 (1.1-1.8); Alkaline Phosphatase 237 U/L (38-126); Bilirubin,Total 0.8 mg/dl (0.2-1.3); Carbon Dioxide 16 mmol/L (22.0-30.0); Globulin 5.6 g/dL (1.3-3.2); Glucose 113 mg/dl (74-100); MANUAL DIFFERENTIAL MANUAL DIFFERENTIAL (MANUAL DIFF); Total Protein,Serum 10.7 g/dl (6.3-8.2)
[2022-02-27 12:06] LABS: Creatinine Clearance Estimated 32 mL/min (50-200); Estimated Glomerular Filt Rate 26 ml/min (>60); GFR (African American) 31 ML/MIN (>60)
[2022-02-27 12:18] LABS: Blood Urea Nitrogen 88 mg/dl (9-20); Calcium 14.7 mg/dl (8.4-10.2)
[2022-02-27 12:26] LABS: Lymphocytes % 43 % (10-50); Microcytosis 1+; Monocytes % 4 % (2-9); Neutrophils % 53 % (42-76); Platelet Estimate Normal; Total Cells Counted 100
--- NOTE | 2022-02-27 12:39 | PC.NURSE ---
Pt returned from CT
--- NOTE | 2022-02-27 13:31 | ECG_ITS ---
APPROVED REPORT Exam: Resting ECG HR:70 bpm ECG Measurements Heart Rate 70 AXES VA 168 P 67 QRSd 111 QRS -25 QT 365 T 37 QTc 386 Conclusion SINUS RHYTHM INDETERMINATE AXIS SEPTAL MYOCARDIAL INFARCTION , OF INDETERMINATE AGE [40+ ms Q WAVE IN V1/V2] ABNORMAL ECG UNCONFIRMED REPORT Electronically signed by : Robert Reddy MD 02/28/2022 17:38:11
--- NOTE | 2022-02-27 13:42 | PC.NURSE ---
rounded on pt, ekg performed, another blanket given for comfort.
--- NOTE | 2022-02-27 14:11 | PC.NURSE ---
speaking with Dr Russo
--- NOTE | 2022-02-27 14:13 | PC.NURSE ---
Dr Marshall paged
--- NOTE | 2022-02-27 14:15 | PC.NURSE ---
Spoke with Dr Marshall
--- NOTE | 2022-02-27 14:28 | PC.NURSE ---
pt given urinal and glass of water
--- NOTE | 2022-02-27 14:59 | EXP.PHA.VTE ---
[facility] Pharmacy VTE Monitoring Patient Demographics Admission date: 02/27/22 Report Date: 02/27/22 Time: 14:59 Patient Allergies aspirin Allergy (Verified 12/12/21 09:11) codeine Allergy (Verified 12/12/21 09:11) Height: 1.8 m Weight: 68.039 kg Current Active Problems (Updated 02/27/22 @ 14:30 by Gokul Lowe MD) Hypercalcemia (Acute) Acute kidney injury (Acute) VTE Risk Labs: VTE Related Lab Results Hgb 15.1 g/dL (14.1-18.0) 02/27/22 09:50 Hct 47.0 % (42.0-52.0) 02/27/22 09:50 Plt Count 523 K/mm3 (142-424) H 02/27/22 09:50 BUN 88 mg/dl (9-20) H 02/27/22 09:50 Creatinine 2.60 mg/dl (0.66-1.25) H 02/27/22 09:50 Estimated Creat Clear 32 mL/min (50-200) 02/27/22 09:50 Prophylaxis VTE Prophylaxis Ordered?: Yes Types of VTE Prophylaxis: TEDS Knee High Location of Applied Device: Bilateral Lower Extremeties
[2022-02-27 15:03] LABS: Coronavirus 19, PCR Not Detected (NotDetected); Influenza A, PCR Not Detected (NotDetected); Influenza B, PCR Not Detected (NotDetected)
--- NOTE | 2022-02-27 15:42 | PC.NURSE ---
Gave report to Irene
--- NOTE | 2022-02-27 15:47 | PC.NURSE ---
Addendum entered by Helen Perez RN 02/27/22 15:48: Bethany stated that the patient had only received another liter of fluids while in ER and had zofran and a liter of fluids by ems personnel. Original Note: Received report from Bethany in ER. Asked Bethany if patient had received anything for high blood pressures in the ER as patient's home medication list indicates he is not on blood pressure medications and they're no orders for blood pressure medications once pt is on floor.
--- NOTE | 2022-02-27 16:02 | PC.NURSE ---
pt arrived to the floor at this time
--- NOTE | 2022-02-27 17:26 | EXP.HP ---
History of Present Illness *Admission Date: 02/27/22 *Reason for visit:: nausea and vomiting *History of present illness: HPI: Patient is a 51-year-old male who has had a complex history of abdominal issues for a little bit over a year.? He had initially undergone evaluation at [facility] in November 2020 and had a work-up done which revealed findings of distal large bowel obstruction.? He had undergone work-up by the surgeon at that facility at that time, Dr. Rojas Le, and was never able to identify any obstructing mass.? Patient had been admitted to [facility] on 09/30/2021 and he had findings on imaging of possible distal colon partial obstruction.? He had undergone flexible sigmoidoscopy and more than 1 colonoscopy which revealed no evidence of any obstructing mass.? He continued to have symptoms of intermittent large bowel obstruction.? He was seen as an outpatient and given the fact that numerous imaging studies at 2 different institutions were concerning for partial distal colon obstruction and due to his ongoing symptomatology patient wished to pursue surgical intervention.? He was taken to the operating room on 12/14/2021 for planned colon resection and underwent laparotomy with distal sigmoid colon resection.? He was found to have inflammatory mass at the distal sigmoid colon.? Anastomosis was performed with oversewing of the anastomosis and there is no evidence of any leak.? Patient did have a proximal diverting ileostomy created at that time given the tenuous nature of his anastomosis.? Pathology revealed diverticulitis with associated peridiverticular abscess and serosal fibrosis.? On postoperative day #2, 12/16/2021, the patient had abdominal soreness and chills and tachycardia therefore was taken back to the operating room at which time he was found to have anastomotic leak with appreciable amount of feces and undigested vegetable matter throughout the abdomen.? He underwent thorough abdominal washout and creation of end colostomy.? He had a prolonged hospital course with slow convalescence.? Patient's motivational status was suboptimal.? He had shown signs of deconditioning.? Ultimately he underwent placement of radiology directed drain in 2 fluid collection inferior to the right lobe of the liver on 12/27/2021.? Cultures returned as Pseudomonas aeruginosa.? This drain as well as his operative drains were removed prior to discharge.? Patient had ultimately been accepted for short-term rehabilitation at [facility].? He was discharged for short-term rehabilitation at [facility] on 01/12/2022.? Apparently after the patient was at [facility] for about 1 week he was sent to [facility] for evaluation of persistent vomiting and there was an apparent infection near his liver.? He apparently had radiology directed drain placed.? He was hospitalized at [facility] for about 2 weeks and then discharged back to [facility] where he remained until discharge on 02/10/2022.? Patient had presented to the emergency department overnight due to some vomiting and some redness of the skin around the ileostomy site.? He was admitted for inpatient management and surgical consultation. He states that his nausea and vomiting has subsequently subsided. The above documentation from previous HPI. Also he was recently discharged from [facility] on 02/20/2022 with excoriation around the ileostomy which initially was thought to be a cellulitis. He was admitted and abdominal area was cleansed and new ileostomy appliance and new colostomy appliance were applied. He was instructed on meticulous ileostomy care. He experienced no additional leakage at that point and was tolerating a regular diet when he went home. He was on no antibiotics at discharge.To note calcium was elevated with last admission. Patient began experiencing nausea and vomiting last p.m. He had no increase in
--- NOTE | 2022-02-27 19:35 | PC.NURSE ---
left side ileostomy site
--- NOTE | 2022-02-27 19:36 | PC.WOUNDNOTE ---
middle drain holes from previous surgery
--- NOTE | 2022-02-27 19:37 | PC.WOUNDNOTE ---
drain holes from previous surgery between colostomy and ileostomy site
--- NOTE | 2022-02-27 19:37 | PC.WOUNDNOTE ---
ileostomy site left side
[2022-02-27 20:46] LABS: Intact Parathyroid Hormone 176.5 pg/mL (7.5-53.5)
[2022-02-28] VITALS: BP 114/77; PULSE 72; RESP 20; TEMP 36.3; O2SAT 99
[2022-02-28 04:00] VITALS: BP 90/62; PULSE 66; RESP 20; TEMP 36.4; O2SAT 98
[2022-02-28 05:00] VITALS: BMI 20.2
--- NOTE | 2022-02-28 05:18 | PC.NURSE ---
Pt is alert and oriented x4, pt has been resting through the night with no complaints. Pt is receiving NS @ 150. Pt lung sounds are clear. Pt has colostomy in place and draining. Ileostomy site is covered with dressing, past two drain sites are covered with dressing also. Pt has used urinal independently this shift. Call light in reach and working.
--- NOTE | 2022-02-28 06:49 | EXP.SURG.CON ---
History of Present Illness *Admission Date: 02/27/22 *History of present illness: Note: The below HPI was forwarded from this admission's history and physical as dictated by Dr. Russo in combination with Dr. Marshall's consultation note from prior admission dated February 19. The patient states that he feels quite a bit better right now than when (he) came into the emergency department . HPI: Patient is a 51-year-old male who has had a complex history of abdominal issues for a little bit over a year.? He had initially undergone evaluation at [facility] in November 2020 and had a work-up done which revealed findings of distal large bowel obstruction.? He had undergone work-up by the surgeon at that facility at that time, Dr. Rojas Le, and was never able to identify any obstructing mass.? Patient had been admitted to on 09/30/2021 and he had findings on imaging of possible distal colon partial obstruction.? He had undergone flexible sigmoidoscopy and more than 1 colonoscopy which revealed no evidence of any obstructing mass.? He continued to have symptoms of intermittent large bowel obstruction.? He was seen as an outpatient and given the fact that numerous imaging studies at 2 different institutions were concerning for partial distal colon obstruction and due to his ongoing symptomatology patient wished to pursue surgical intervention.? He was taken to the operating room on 12/14/2021 for planned colon resection and underwent laparotomy with distal sigmoid colon resection.? He was found to have inflammatory mass at the distal sigmoid colon.? Anastomosis was performed with oversewing of the anastomosis and there is no evidence of any leak.? Patient did have a proximal diverting ileostomy created at that time given the tenuous nature of his anastomosis.? Pathology revealed diverticulitis with associated peridiverticular abscess and serosal fibrosis.? On postoperative day #2, 12/16/2021, the patient had abdominal soreness and chills and tachycardia therefore was taken back to the operating room at which time he was found to have anastomotic leak with appreciable amount of feces and undigested vegetable matter throughout the abdomen.? He underwent thorough abdominal washout and creation of end colostomy.? He had a prolonged hospital course with slow convalescence.? Patient's motivational status was suboptimal.? He had shown signs of deconditioning.? Ultimately he underwent placement of radiology directed drain in 2 fluid collection inferior to the right lobe of the liver on 12/27/2021.? Cultures returned as Pseudomonas aeruginosa.? This drain as well as his operative drains were removed prior to discharge.? Patient had ultimately been accepted for short-term rehabilitation at [facility].? He was discharged for short-term rehabilitation at [facility] on 01/12/2022.? Apparently after the patient was at [facility] for about 1 week he was sent to [facility] for evaluation of persistent vomiting and there was an apparent infection near his liver.? He apparently had radiology directed drain placed.? He was hospitalized at [facility] for about 2 weeks and then discharged back to [facility] where he remained until discharge on 02/10/2022.? Patient had presented to the emergency department overnight due to some vomiting and some redness of the skin around the ileostomy site.? He was admitted for inpatient management and surgical consultation. He states that his nausea and vomiting has subsequently subsided. The above documentation from previous HPI. Also he was recently discharged from on 02/20/2022 with excoriation around the ileostomy which initially was thought to be a cellulitis. He was admitted and abdominal area was cleansed and new ileostomy appliance and new colostomy appliance were applied. He was instructed on meticulous ileostomy care.
[2022-02-28 07:10] LABS: Anion Gap 11.9 mEq/L (5-15); Basophils # 0.1 K/mm3 (0-0.2); Basophils % 0.5 % (0.1-2.0); Carbon Dioxide 16 mmol/L (22.0-30.0); Chloride 104 mmol/L (98-107); Creatinine Clearance Estimated 42 mL/min (50-200); Eosinophils # 0.4 K/mm3 (0.0-0.4); Eosinophils % 3.8 % (0.1-12.0); Estimated Glomerular Filt Rate 37 ml/min (>60); GFR (African American) 45 ML/MIN (>60); Glucose 77 mg/dl (74-100); Hematocrit 36.1 % (42.0-52.0); Lymphocytes # 3.7 K/mm3 (0.7-4.5); Lymphocytes % 38.5 % (10-50); Mean Corpuscular HGB Conc 31.7 g/dL (31.8-35.4); Mean Corpuscular Hemoglobin 25.8 pg (27.0-31.2); Mean Corpuscular Volume 81.2 fl (80-94); Mean Platelet Volume 8.3 fl (7.4-10.4); Neutrophils # 4.5 K/mm3 (1.8-7.8); Neutrophils % 47.1 % (37.0-80.0); Platelet Count 343 K/mm3 (142-424); Potassium 3.9 mmoL/L (3.5-5.1); Red Blood Count 4.44 M/mm3 (4.60-6.20); Red Cell Distribution Width 17.2 % (11.5-17.5); Sodium 128 mmol/L (136-145); White Blood Count 9.5 K/mm3 (4.8-10.8)
[2022-02-28 07:25] LABS: Hemoglobin 11.4 g/dL (14.1-18.0)
[2022-02-28 07:39] LABS: Calcium 12.4 mg/dl (8.4-10.2)
[2022-02-28 07:40] LABS: Blood Urea Nitrogen 85 mg/dl (9-20)
--- NOTE | 2022-02-28 07:52 | PC.NURSE ---
verified critical bun and calcium with lab, and notified tova sherwood
[2022-02-28 08:00] VITALS: BP 103/68; PULSE 68; RESP 16; TEMP 36.4; O2SAT 98
--- NOTE | 2022-02-28 08:17 | EXP.PN ---
Subjective *Date: 02/28/22 *Time: 14:35 Interval history: Patient is lethargic this morning but answers questions. Nausea and would like breakfast. He has had no vomiting. Ileostomy is working. He has been seen by Dr. Marshall this morning. Calcium has decreased to 12.4. Creatinine has greatly improved. Continues with IV fluids. He is voiding. See I&O. Exam Data for Last 24 hours Vital signs and Labs for Last 24 Hours: Temp Pulse Resp BP Pulse Ox 97.5 F L 68 16 103/68 L 98 02/28/22 08:00 02/28/22 08:00 02/28/22 08:00 02/28/22 08:00 02/28/22 08:00 Laboratory Results - last 24 hr 02/27/22 09:50: WBC 17.6 H, RBC 5.66, Hgb 15.1, Hct 47.0, MCV 83.2, MCH 26.6 L, MCHC 32.0, RDW 17.1, Plt Count 523 H, MPV 9.4, Neut % (Auto) 50.4, Lymph % (Auto) 39.7, [place] % (Auto) 7.1, Eos % (Auto) 1.6, Baso % (Auto) 1.1, Neut # (Auto) 8.9 H, Lymph # (Auto) 7.0 H, [place] # (Auto) 1.3 H, Eos # (Auto) 0.3, Baso # (Auto) 0.2, Total Counted 100, Neutrophils % (Manual) 53, Lymphocytes % (Manual) 43, Monocytes % (Manual) 4, Platelet Estimate Normal, Microcytosis 1+ 02/27/22 09:50: Sodium 131 L, Potassium 5.0, Chloride 91 L, Carbon Dioxide 16 L, Anion Gap 29.0 H, BUN 88 H, Creatinine 2.60 H, Estimated Creat Clear 32, Estimated GFR 26 L, Est GFR ( Amer) 31 L, Glucose 113 H, Calcium 14.7 H*, Total Bilirubin 0.8, AST 42, ALT 47, Alkaline Phosphatase 237 H, Total Protein 10.7 H, Albumin 5.1 H, Globulin 5.6 H, Albumin/Globulin Ratio 0.9 L 02/27/22 14:57: SARS-CoV-2 (PCR) Not detected, Influenza A Untype (PCR) Not detected, Influenza Type B (PCR) Not detected 02/27/22 19:39: PTH Intact 176.5 H 02/28/22 06:37: WBC 9.5 D, RBC 4.44 L, Hgb 11.4 L D, Hct 36.1 L, MCV 81.2, MCH 25.8 L, MCHC 31.7 L, RDW 17.2, Plt Count 343 D, MPV 8.3, Neut % (Auto) 47.1, Lymph % (Auto) 38.5, [place] % (Auto) 10.0 H, Eos % (Auto) 3.8, Baso % (Auto) 0.5, Neut # (Auto) 4.5, Lymph # (Auto) 3.7, [place] # (Auto) 1.0, Eos # (Auto) 0.4, Baso # (Auto) 0.1 02/28/22 06:37: Sodium 128 L, Potassium 3.9 D, Chloride 104, Carbon Dioxide 16 L, Anion Gap 11.9, BUN 85 H, Creatinine 1.90 H D, Estimated Creat Clear 42, Estimated GFR 37 L, Est GFR ( Amer) 45 L D, Glucose 77 D, Calcium 12.4 H* D I & O for Last 24 hours: Intake & Output 02/25/22 02/26/22 02/27/22 02/28/22 11:59 11:59 11:59 11:59 Intake Total 1366 / 1366 Output Total 450 / 450 Balance 916 / 916 Weight 150 lb 144 lb 8.998 oz Constitutional Constitutional: no acute distress Comments: Sleepy *Routine Respiratory Exam Respiratory: Present CTA bilaterally *Routine Cardiovascular Exam Cardiovascular: Present RRR *Routine Abdominal Exam Abdominal: Present soft, normoactive bowel sounds and ostomy (Functioning with stool in bag) *Routine Extremities Exam Extremities: Absent edema or calf tenderness *Routine Neurological Exam Neurological: Present alert and oriented X3 Assessment and Plan *Assessment and plan (1) Hypercalcemia: Status: Acute Category: Medical Code(s): E83.52 - Hypercalcemia (2) Acute kidney injury: Status: Acute Category: Medical Code(s): N17.9 - Acute kidney failure, unspecified (3) Dehydration: Status: Acute Category: Medical Code(s): E86.0 - Dehydration (4) Tobacco use disorder: Status: Acute Category: Medical Code(s): F17.200 - Nicotine dependence, unspecified, uncomplicated (5) Renal cyst: Status: Acute Category: Medical Code(s): N28.1 - Cyst of kidney, acquired (6) History of depression: Status: Acute Category: Medical Code(s): Z86.59 - Personal history of other mental and behavioral disorders (7) Hypertension: Status: Acute Category: Medical Code(s): I10 - Essential (primary) hypertension (8) Ileostomy in place: Status: Acute Category: Medical Code(s): Z93.2 - Ileostomy status (9) Colostomy in place: Status: Acut
--- NOTE | 2022-02-28 09:30 | DIET.NUTRFU ---
RD reviewed previous admit notes, he triggers for significant wt loss from last admit on 01/11, weighted 98kg and now weight is 68kg. Patient was discharged to [facility] from here for rehab. Was readmitted last night for vomiting and abdominal pain. Patient has a long hx of GI sx and complications. He has a ileostomy that seems to be working. Reviewed hydration labs- WNL. [place] diet ordered to start at lunch and IVF running. Patient has severe protein calorie malnutrition. Will evaluate for supplement need
--- NOTE | 2022-02-28 12:26 | PC.NURSE ---
0835 patient morning meds given. patient has no concerns or questions noted. patient stating he is feeling better than previous day. tolerating morning breakfast well. patient states at home he had been sparingly using his bags for colostomy and placing a bandage over the ileostomy that wasn't functioning. patient had no complaints. encouraged him to ring out as needed
[2022-02-28 12:42] VITALS: BMI 20.2
--- NOTE | 2022-02-28 13:07 | PC.NURSE ---
Spoke with Dr. Jovel office is it okay to leave the ileostomy cleaned with a dressing.
--- NOTE | 2022-02-28 13:23 | DIET.NUTRFU ---
RD reviewed weight from last admit, he has lost significant weight form 215 on 01/11 to 150# now. He has not been able to eat, vomiting. According to provider not her had a infection by liver. Today feeling better denies any nausea today. Triggers for severe PCM, case mgt aware. He was willing to try boost clear with lunch today. He dislikes ensure he reports a chalky flavor.
--- NOTE | 2022-02-28 15:05 | PC.NURSE ---
Pt is A/Ox4. He has been in the bed today. He was changed to a bland diet and tolerated it well.
[2022-02-28 15:30] VITALS: BP 106/65; PULSE 67; RESP 17; TEMP 36.4; O2SAT 100
[2022-02-28 20:00] VITALS: BP 102/64; PULSE 77; RESP 16; TEMP 36.6; O2SAT 99
--- NOTE | 2022-03-01 03:40 | PC.NURSE ---
Addendum entered by Irene Olvera RN 03/01/22 07:18: Pt colostomy bag changed 3 more times this shift requiring a full bed change each time. Pt has been completely dependent with colostomy/bed change. Pt states his colostomy bag is becoming full of gas while he is asleep and he does not wake up until it has leaked. Pt has been cleaned up and has been encouraged to call out for help. Call light within reach. Original Note: Pt AOx4. Pt has c/o nausea 1x t/o shift thus far. 4mg Zofran administered, pt states favorable results. Pt colostomy bag has been changed 3x during shift due to gas, bag coming undone. Redness/irritation noted to abdomen around colostomy. DSG in place over urostomy. Pt abale to use urinal independently. Call light within reach.
[2022-03-01 04:00] VITALS: BP 101/64; PULSE 74; RESP 17; TEMP 36.4; O2SAT 96
[2022-03-01 04:45] VITALS: BMI 20.2
--- NOTE | 2022-03-01 07:45 | EXP.SURG.PN ---
Subjective Narrative: Patient without any new complaints. Taking bland diet. Ileostomy appliance with some leakage. No dressing on midline. Exam Data for Last 24 hours Vital signs and Labs for Last 24 Hours: Temp Pulse Resp BP Pulse Ox 97.5 F L 74 17 101/64 L 96 03/01/22 04:00 03/01/22 04:00 03/01/22 04:00 03/01/22 04:00 03/01/22 04:00 I & O for Last 24 hours: Intake & Output 02/26/22 02/27/22 02/28/22 03/01/22 11:59 11:59 11:59 11:59 Intake Total 1366 / 1366 1780 / 1780 Output Total 450 / 450 1575 / 1575 Balance 916 / 916 205 / 205 Weight 150 lb 144 lb 8.998 oz 144 lb 13.64 oz *Routine Abdominal Exam Abdominal: Present soft Comments: Ileostomy functional. No dressing on midline. Progress Note: A&P Assessment and plan (1) Hypercalcemia: Status: Acute (2) Acute kidney injury: Status: Acute (3) Dehydration: Status: Acute (4) Tobacco use disorder: Status: Acute (5) Renal cyst: Status: Acute (6) History of depression: Status: Acute (7) Hypertension: Status: Acute (8) Ileostomy in place: Problem details: Would benefit from convex appliance, appropriate size. Status: Acute (9) Colostomy in place: Status: Acute (10) Physical deconditioning: Status: Acute
[2022-03-01 07:49] LABS: MANUAL DIFFERENTIAL MANUAL DIFFERENTIAL (MANUAL DIFF)
[2022-03-01 07:52] LABS: Basophils # 0.1 K/mm3 (0-0.2); Basophils % 0.8 % (0.1-2.0); Eosinophils # 0.5 K/mm3 (0.0-0.4); Eosinophils % 4.2 % (0.1-12.0); Hematocrit 36.6 % (42.0-52.0); Hemoglobin 11.6 g/dL (14.1-18.0); Lymphocytes # 3.5 K/mm3 (0.7-4.5); Lymphocytes % 31.8 % (10-50); Mean Corpuscular HGB Conc 31.7 g/dL (31.8-35.4); Mean Corpuscular Hemoglobin 26.3 pg (27.0-31.2); Mean Corpuscular Volume 82.8 fl (80-94); Mean Platelet Volume 8.3 fl (7.4-10.4); Monocytes # 0.9 K/mm3 (0.1-1.0); Neutrophils % 55.2 % (37.0-80.0); Platelet Count 308 K/mm3 (142-424); Red Blood Count 4.42 M/mm3 (4.60-6.20); White Blood Count 10.9 K/mm3 (4.8-10.8)
[2022-03-01 08:00] VITALS: BP 109/72; PULSE 76; RESP 17; TEMP 36.4; O2SAT 100
[2022-03-01 08:11] LABS: Eosinophils % 5 % (0-3); Lymphocytes % 33 % (10-50); Monocytes % 3 % (2-9); Neutrophils % 59 % (42-76); Total Cells Counted 100
[2022-03-01 08:12] LABS: Hypochromasia 1+; Microcytosis 1+; Platelet Estimate Normal
[2022-03-01 08:33] LABS: Alanine Aminotransferase 32 U/L (12-78); Albumin Level 3.1 g/dl (3.5-5.0); Albumin/Globulin Ratio 0.9 (1.1-1.8); Alkaline Phosphatase 194 U/L (38-126); Anion Gap 16.3 mEq/L (5-15); Aspartate Amino Transferase 33 U/L (17-59); Blood Urea Nitrogen 61 mg/dl (9-20); Calcium 11.8 mg/dl (8.4-10.2); Carbon Dioxide 13 mmol/L (22.0-30.0); Chloride 109 mmol/L (98-107); Creatinine Clearance Estimated 66 mL/min (50-200); Estimated Glomerular Filt Rate 63 ml/min (>60); GFR (African American) 77 ML/MIN (>60); Globulin 3.5 g/dL (1.3-3.2); Glucose 86 mg/dl (74-100); Potassium 4.3 mmoL/L (3.5-5.1); Sodium 134 mmol/L (136-145); Total Protein,Serum 6.6 g/dl (6.3-8.2)
[2022-03-01 08:34] LABS: Bilirubin,Total < 0.1 mg/dl (0.2-1.3)
--- NOTE | 2022-03-01 08:43 | US_ITS ---
FINAL REPORT TECHNIQUE: Sonographic images of the thyroid were obtained. CLINICAL HISTORY: Looking at parathyroid r/t hypercalcemia COMPARISON: 12/17/2021 FINDINGS: THYROID ULTRASOUND The right thyroid gland measures 5.1 x 2.2 x 3.6 cm. The parenchyma shows normal echogenicity. There is a right thyroid lobe mass measuring 29 mm and previously measured 29 mm. This is consistent with a TI-RADS 3 nodule. There is a hypoechoic nodule posterior to the right lobe measuring 10 x 7 x 6 mm which may represent a somewhat enlarged parathyroid. The left thyroid gland measures 2.3 x 0.8 x 0.8 cm. The parenchyma shows normal echogenicity. There are several small nodules in the left thyroid lobe. There is a hypoechoic nodule posterior to the left lobe measuring 6 x 5 x 2 mm nodule which may represent normal left parathyroid. IMPRESSION: Probably enlarged right parathyroid consistent with an adenoma or hyperplasia. Probable normal size left parathyroid. Stable, dominant heterogeneous mass in the right thyroid consistent with a TI-RADS 3 nodule. Additional follow-up ultrasound is recommended to evaluate stability. Reviewed, Interpreted and Dictated by Arsenio Garcias III, MD Transcribed by Luz Woods Authenticated and [facility]
--- NOTE | 2022-03-01 09:05 | EXP.ACUTE.PN ---
Subjective *Date: 03/01/22 *Time: 09:32 Interval history: Patient states he wants to go home today. He denies any pain. He states he slept off and on throughout the night. Ileostomy appliance has been leaking this morning. Medical Exam Vital signs and Labs for Last 24 Hours: Temp Pulse Resp BP Pulse Ox 97.6 F 76 17 109/72 L 100 03/01/22 08:00 03/01/22 08:00 03/01/22 08:00 03/01/22 08:00 03/01/22 08:00 Laboratory Results - last 24 hr 03/01/22 07:42: WBC 10.9 H, RBC 4.42 L, Hgb 11.6 L, Hct 36.6 L, MCV 82.8, MCH 26.3 L, MCHC 31.7 L, RDW 17.0, Plt Count 308, MPV 8.3, Neut % (Auto) 55.2, Lymph % (Auto) 31.8, [place] % (Auto) 8.0, Eos % (Auto) 4.2, Baso % (Auto) 0.8, Neut # (Auto) 6.0, Lymph # (Auto) 3.5, [place] # (Auto) 0.9, Eos # (Auto) 0.5 H, Baso # (Auto) 0.1, Total Counted 100, Neutrophils % (Manual) 59, Lymphocytes % (Manual) 33, Monocytes % (Manual) 3, Eosinophils % (Manual) 5 H, Platelet Estimate Normal, Hypochromasia 1+, Microcytosis 1+ 03/01/22 07:42: Sodium 134 L, Potassium 4.3, Chloride 109 H, Carbon Dioxide 13 L, Anion Gap 16.3 H, BUN 61 H D, Creatinine 1.20 D, Estimated Creat Clear 66, Estimated GFR 63, Est GFR ( Amer) 77 D, Glucose 86, Calcium 11.8 H, Total Bilirubin < 0.1 L, AST 33, ALT 32 D, Alkaline Phosphatase 194 H, Total Protein 6.6 D, Albumin 3.1 L, Globulin 3.5 H, Albumin/Globulin Ratio 0.9 L I & O for Labs for Last 24 Hours: Intake & Output 02/26/22 02/27/22 02/28/22 03/01/22 11:59 11:59 11:59 11:59 Intake Total 1366 / 1366 1900 / 1900 Output Total 450 / 450 1575 / 1575 Balance 916 / 916 325 / 325 Weight 150 lb 144 lb 8.998 oz 144 lb 13.64 oz Constitutional: Present no acute distress and cooperative Respiratory: Present CTA bilaterally Cardiac: Present Reg Rate and Rhythm GI: Present soft and other (Ileostomy with leakage); Absent tenderness Extremities: Absent edema Skin: Present intact Assessment and Plan *Assessment and plan (1) Primary hyperparathyroidism: Status: Acute Category: Medical Code(s): E21.0 - Primary hyperparathyroidism (2) Hypercalcemia: Status: Acute Category: Medical Code(s): E83.52 - Hypercalcemia (3) Acute kidney injury: Status: Acute Category: Medical Code(s): N17.9 - Acute kidney failure, unspecified (4) Dehydration: Status: Acute Category: Medical Code(s): E86.0 - Dehydration (5) Tobacco use disorder: Status: Acute Category: Medical Code(s): F17.200 - Nicotine dependence, unspecified, uncomplicated (6) Renal cyst: Status: Acute Category: Medical Code(s): N28.1 - Cyst of kidney, acquired (7) History of depression: Status: Acute Category: Medical Code(s): Z86.59 - Personal history of other mental and behavioral disorders (8) Hypertension: Status: Acute Category: Medical Code(s): I10 - Essential (primary) hypertension (9) Ileostomy in place: Problem details: Would benefit from convex appliance, appropriate size. Status: Acute Category: Medical Code(s): Z93.2 - Ileostomy status (10) Colostomy in place: Status: Acute Category: Medical Code(s): Z93.3 - Colostomy status (11) Physical deconditioning: Status: Acute Category: Medical Code(s): R53.81 - Other malaise (12) Severe protein-calorie malnutrition: Status: Acute Category: Medical Code(s): E43 - Unspecified severe protein-calorie malnutrition Plan We will get a parathyroid ultrasound this morning due to hypercalcemia. Assessment and plan all Dx Assessment and Plan All Dx:: Patient seen and examined. He feels better and wants to go home. Calcium and renal functions continue to improve. He is tolerating his diet. Awaiting parathyroid ultrasound to be done today.
--- NOTE | 2022-03-01 14:01 | PC.NURSE ---
as of now, ostomy bag has been changed three times. leakage noted around side, multiple bags and sizes attempted. patient is able to do care if provided with supplies. has not been wanting to get up, but is eager for discharge. tolerating diet well. irritation noted around abdomen. telfa and tegaderm placed over midline abdominal incision. some drainage to that area noted. encouraged him to ring out as needed
--- NOTE | 2022-03-01 14:34 | PC.NURSE ---
family did call in and had concerns with patient at discharge. stated at home patient sat in recliner and thats basically where he stayed. felt he was unable to care for himself at home safely and sanitarily. these concerns were passed to case management, and is ordering pt on patient. patient is eager to go home stating his mother is in town visiting. patient has no concerns about home care at this time.
[2022-03-01 15:25] VITALS: BP 107/69; PULSE 70; RESP 17; TEMP 37; O2SAT 100
--- NOTE | 2022-03-01 16:00 | PC.NURSE ---
received report from Rogerio Mota RN
--- NOTE | 2022-03-01 16:01 | HMH.PTEV ---
Physical Therapy Evaluation Rehab PT IP Evaluation Start: 03/01/22 14:38 Freq: ONCE Status: Active Protocol: Document 03/01/22 15:53 GLENN (Rec: 03/01/22 16:00 GLENN [id number]) Subjective/History History History 51 yowm adm to [facility] with ARIELLA and weakness. He reports feeling much better this pm than he did on Saturday. He reports living with roomate, no steps, uses a walker for ambulation at baseline. He has hx of extensive surgery to colon and small intestine and has end ileostomy which is not sealing well and drainage is causing abdominal skin irritation. Subjective Subjective Pt reports no new c/o. Feeling much stronger. Rehab PT IP Eval Objective Appearance Patient Behavior Appropriate Patient Orientation Person,Place,Time Difficulty following instructions none Speech Pattern Clear Ambulation Patient Able to Ambulate Yes Ambulation Observation IP General Gait Pattern Observation No Deviations/Normal Ambulation Distance (feet) 150 Ambulation Assistive Device Rolling Walker Ambulation Ability Independent Balance Ability to Arise Able, uses arms to help Sitting Balance Steady, safe Standing Balance Steady, wide stance Dynamic Sitting Balance Ability Good Dynamic Standing Balance Ability Good Transfers Bed Transfer Ability Independent Chair Transfer Ability Independent Sit to Stand Bed Transfer Ability Independent Sit to Stand Chair Transfer Ability Independent Rehab PT IP prob,goals,plan Problems Date of Evaluation: 03/01/22 Discharge Plan PT Discharge Plan Pt appears to be at baseline for all mobility and is appropriate to return home once medically stable. G -code Required No Eval Complexity Eval Charge Codes 17508 - Moderate Complexity PHYSICIAN CERTIFICATION: I certify the specified therapy services for Garret Lopez are required, authorized, and reviewed every 30 days.
--- NOTE | 2022-03-01 16:05 | HMH.OTEV ---
OT Inpatient Evaluation Rehab OT IP Evaluation Start: 03/01/22 14:38 Freq: ONCE Status: Complete Protocol: Document 03/01/22 15:59 [facility] (Rec: 03/01/22 16:05 [facility] [id number]) Rehab OT IP Assessment Subjective History Pt oriented x 3 on arrival. Pt agreeable to engage in therapy evaluation. Pt was admitted via ED on 02/27/22 due to nausea and vomitting. Pt does have a complex history from abdominal issues. Recently, pt was living with a roommate. Pt does not have any stairs to climb in his home or outside. Pt claims he was independent with all ADLs . He did use a walker during ambulation. He was dependent upon roommate to coplete all IADLS. Subjective I am ready to go home. Pt resting in bed on arrival. Pt completed bed mobility and went from supine to sitting at eob with sba. Pt completed lower body dressing by donning socks independently while sitting at eob. Pt stood from eob with sba. Pt engaged in functional mobility task of ~150 feet with sba and rolling walker. Pt returned to sitting at eob with sba. Pt went from sitting to supine with sba. Pt was lef tiwt clal bonilla and all other needs in reach. Objective Patient Orientation Person,Place,Birthday Upper Extremity Gross ROM WFL Bed Mobility bed mobility-scooting,bed mobility - supine/sit,bed mobility - rolling Assist Level Supervision/Stand by Transfer Training Sit/Stand Transfer Assist Level Supervision/Stand by Lower Body Dressing Ability Independent Rehab OT IP prob,goals,plan Problems Date of Evaluation: 03/01/22 Rehab Potential Rehab Potential Innapropriate for Skilled Therapy Discharge Plan OT Discharge Plan Pt appears to be at his
[2022-03-01 17:09] LABS: Albumin 2.9 g/dL (2.9-4.4); Alpha-1-Globulin 0.2 g/dL (0.0-0.4); Alpha-2-Globulin 1.2 g/dL (0.4-1.0); Gamma Globulin 1.7 g/dL (0.4-1.8); Protein, Total 7.2 g/dL (6.0-8.5)
--- NOTE | 2022-03-01 18:51 | PC.NURSE ---
shift summary for 4-7pm: Pt has done well. GCS 15. No complaints noted. Ileostomy bag is having to be burped Q1hr. Stool is brown, liquids, with chunks. Refuses to get OOB. Tolerates a regular diet. On RA. VSS. NS infusing @ 125mL/hr.
[2022-03-01 20:00] VITALS: BP 122/71; PULSE 78; RESP 16; TEMP 36.6; O2SAT 100
[2022-03-02 04:00] VITALS: BP 111/69; PULSE 72; RESP 16; TEMP 36.9; O2SAT 97
[2022-03-02 04:24] VITALS: BMI 20.3
--- NOTE | 2022-03-02 05:15 | PC.NURSE ---
pt has rested well this shift. A&OX4. ileostomy pouch has been changed X2, pt able to do this independently if he has the supplies, stool is brown, chunky liquid. midline dressing has been changed X2. pt has not c/o pain. CB in reach.
[2022-03-02 08:00] VITALS: BP 116/59; PULSE 74; RESP 24; TEMP 36.4; O2SAT 100
--- NOTE | 2022-03-02 08:56 | EXP.ACUTE.PN ---
Subjective *Date: 03/02/22 *Time: 09:58 Interval history: Patient states he is feeling better this morning. He denies any pain and wants to go home. He is tolerating his diet. Medical Exam Vital signs and Labs for Last 24 Hours: Temp Pulse Resp BP Pulse Ox 98.4 F 72 16 111/69 97 03/02/22 04:00 03/02/22 04:00 03/02/22 04:00 03/02/22 04:00 03/02/22 04:00 Laboratory Results - last 24 hr 02/27/22 19:39: Total Protein (PEP) 7.2, Albumin (PEP) 2.9, Globulin (PEP) 4.3 H, Albumin/Globulin Ratio 0.7, Pvsnp-5-Znkqpgdgx 0.2, Lfboc-9-Tlaqdggww 1.2 H, Beta Globulins 1.1, Gamma Globulins 1.7, M-Abhishek Not observed, PEP Note Comment I & O for Labs for Last 24 Hours: Intake & Output 02/27/22 02/28/22 03/01/22 03/02/22 11:59 11:59 11:59 11:59 Intake Total 1366 / 1366 1900 / 1900 5248 / 5248 Output Total 450 / 450 1974 / 1974 1950 / 1950 Balance 916 / 916 -75 / -75 3298 / 3298 Weight 150 lb 144 lb 8.998 oz 144 lb 13.64 oz 145 lb 7.658 oz Constitutional: Present no acute distress and cooperative Respiratory: Present CTA bilaterally Cardiac: Present Reg Rate and Rhythm GI: Present soft and other (Ileostomy in place); Absent tenderness Extremities: Absent edema Skin: Present intact Assessment and Plan *Assessment and plan (1) Primary hyperparathyroidism: Status: Acute Category: Medical Code(s): E21.0 - Primary hyperparathyroidism (2) Hypercalcemia: Status: Acute Category: Medical Code(s): E83.52 - Hypercalcemia (3) Acute kidney injury: Status: Acute Category: Medical Code(s): N17.9 - Acute kidney failure, unspecified (4) Dehydration: Status: Acute Category: Medical Code(s): E86.0 - Dehydration (5) Tobacco use disorder: Status: Acute Category: Medical Code(s): F17.200 - Nicotine dependence, unspecified, uncomplicated (6) Renal cyst: Status: Acute Category: Medical Code(s): N28.1 - Cyst of kidney, acquired (7) History of depression: Status: Acute Category: Medical Code(s): Z86.59 - Personal history of other mental and behavioral disorders (8) Hypertension: Status: Acute Category: Medical Code(s): I10 - Essential (primary) hypertension (9) Ileostomy in place: Problem details: Would benefit from convex appliance, appropriate size. Status: Acute Category: Medical Code(s): Z93.2 - Ileostomy status (10) Colostomy in place: Status: Acute Category: Medical Code(s): Z93.3 - Colostomy status (11) Physical deconditioning: Status: Acute Category: Medical Code(s): R53.81 - Other malaise (12) Severe protein-calorie malnutrition: Status: Acute Category: Medical Code(s): E43 - Unspecified severe protein-calorie malnutrition Plan Patient's parathyroid ultrasound showed palpably enlarged right parathyroid consistent with an adenoma or hyperplasia. There was also a stable mass in the right thyroid. Patient is stable to be discharged home. He will need to follow-up with his PCP as well as ENT. Assessment and plan all Dx Assessment and Plan All Dx:: Patient seen and examined. He feels much better and is eager to go home. Calcium level is improved but he will need surgery to remove his parathyroid adenoma. He will be discharged today and encouraged to drink 8 bottles of water per day. He will be scheduled to f/u with ENT next week. He also has an appt with his PCP on 03/06/22.
--- NOTE | 2022-03-02 22:43 | EXP.DC.SUM ---
General Admission date:: 02/27/22 Discharge date: 03/02/22 HPI HPI HPI: Patient is a 51-year-old male who has had a complex history of abdominal issues for a little bit over a year.? He had initially undergone evaluation at [facility] in November 2020 and had a work-up done which revealed findings of distal large bowel obstruction.? He had undergone work-up by the surgeon at that facility at that time, Dr. Rojas Le, and was never able to identify any obstructing mass.? Patient had been admitted to [facility] on 09/30/2021 and he had findings on imaging of possible distal colon partial obstruction.? He had undergone flexible sigmoidoscopy and more than 1 colonoscopy which revealed no evidence of any obstructing mass.? He continued to have symptoms of intermittent large bowel obstruction.? He was seen as an outpatient and given the fact that numerous imaging studies at 2 different institutions were concerning for partial distal colon obstruction and due to his ongoing symptomatology patient wished to pursue surgical intervention.? He was taken to the operating room on 12/14/2021 for planned colon resection and underwent laparotomy with distal sigmoid colon resection.? He was found to have inflammatory mass at the distal sigmoid colon.? Anastomosis was performed with oversewing of the anastomosis and there is no evidence of any leak.? Patient did have a proximal diverting ileostomy created at that time given the tenuous nature of his anastomosis.? Pathology revealed diverticulitis with associated peridiverticular abscess and serosal fibrosis.? On postoperative day #2, 12/16/2021, the patient had abdominal soreness and chills and tachycardia therefore was taken back to the operating room at which time he was found to have anastomotic leak with appreciable amount of feces and undigested vegetable matter throughout the abdomen.? He underwent thorough abdominal washout and creation of end colostomy.? He had a prolonged hospital course with slow convalescence.? Patient's motivational status was suboptimal.? He had shown signs of deconditioning.? Ultimately he underwent placement of radiology directed drain in 2 fluid collection inferior to the right lobe of the liver on 12/27/2021.? Cultures returned as Pseudomonas aeruginosa.? This drain as well as his operative drains were removed prior to discharge.? Patient had ultimately been accepted for short-term rehabilitation at [facility].? He was discharged for short-term rehabilitation at [facility] on 01/12/2022.? Apparently after the patient was at [facility] for about 1 week he was sent to [facility] for evaluation of persistent vomiting and there was an apparent infection near his liver.? He apparently had radiology directed drain placed.? He was hospitalized at [facility] for about 2 weeks and then discharged back to [facility] where he remained until discharge on 02/10/2022.? Patient had presented to the emergency department overnight due to some vomiting and some redness of the skin around the ileostomy site.? He was admitted for inpatient management and surgical consultation. He states that his nausea and vomiting has subsequently subsided. The above documentation from previous HPI. Also he was recently discharged from [facility] on 02/20/2022 with excoriation around the ileostomy which initially was thought to be a cellulitis.? He was admitted and abdominal area was cleansed and new ileostomy appliance and new colostomy appliance were applied.? He was instructed on meticulous ileostomy care.? He experienced no additional leakage at that point and was tolerating a regular diet when he went home.? He was on no antibiotics at discharge.To note calcium was elevated with last admission. Patient began experiencing nausea and vomiting last p.m.? He had no increase in bowel movement per ileostomy.? This continued thr
--- NOTE | 2022-03-05 13:37 | CARE MANAGER ---
Spoke with patient for post-discharge phone interview.No needs at this time.
[2022-03-05 14:10] LABS: Alpha-1-Globulin, U 2.9 % (.); Alpha-2-Globulin, U 16.8 % (.); Beta Globulin, U 21.7 % (.); Gamma Globulin, U 25.5 % (.); M-Spike, % Not Observed % (Not Observed); Protein,Total,Urine 10.3 mg/dL (Not Estab.)
[2022-03-17 16:50] LABS: PTH Related Peptide < 2.0
== END 2022-03-02 10:06 | disposition home or self-care (01) | DRG 682 ==
LOC: ER 14:30 → 2ND 17:46
PROVIDERS: Nurse Practitioner Family; Admitting Provider Family Medicine; Emergency Provider Emergency Medicine; PCP Family Medicine; Visit Provider Family Medicine
DX: N17.9 Acute kidney failure, unspecified (principal); E43 Unspecified severe protein-calorie malnutrition; E83.52 Hypercalcemia; Z43.2 Encounter for attention to ileostomy; I10 Essential (primary) hypertension; E78.5 Hyperlipidemia, unspecified; F17.210 Nicotine dependence, cigarettes, uncomplicated; F32.A Depression, unspecified; E86.0 Dehydration; Z68.20 Body mass index [BMI] 20.0-20.9, adult; D34 Benign neoplasm of thyroid gland
CPT/HCPCS: 36415; 74176; 76536; 80048; 80053; 82397; 83970; 84155; 84156; 84165; 84166; 85007; 85014; 85018; 85025; 85048; 85049; 93005; 97162; 97166; 99285; C9803; J2405; U0003; U0005

== ENCOUNTER 2022-03-29 05:11 | Emergency (ER) | payer OTHER, SELFPAY ==
[2022-03-29 05:11] VITALS: BP 100/70; PULSE 80; RESP 19; TEMP 36.6; O2SAT 98; BMI 20.5
--- NOTE | 2022-03-29 05:30 | PC.NURSE ---
notified of completed triage and verbal orders received
[2022-03-29 05:40] LABS: Basophils # 0.1 K/mm3 (0-0.2); Eosinophils # 0.6 K/mm3 (0.0-0.4); Eosinophils % 4.1 % (0.1-12.0); Hematocrit 42.1 % (42.0-52.0); Hemoglobin 13.3 g/dL (14.1-18.0); Lymphocytes # 4.5 K/mm3 (0.7-4.5); Lymphocytes % 34.2 % (10-50); Mean Corpuscular HGB Conc 31.5 g/dL (31.8-35.4); Mean Corpuscular Hemoglobin 25.2 pg (27.0-31.2); Mean Platelet Volume 8.1 fl (7.4-10.4); Monocytes % 7.4 % (1.7-9.3); Neutrophils # 7.1 K/mm3 (1.8-7.8); Neutrophils % 53.2 % (37.0-80.0); Platelet Count 388 K/mm3 (142-424); Red Blood Count 5.26 M/mm3 (4.60-6.20); Red Cell Distribution Width 17.4 % (11.5-17.5); White Blood Count 13.3 K/mm3 (4.8-10.8)
[2022-03-29 05:41] LABS: Chloride 102 mmol/L (98-107)
[2022-03-29 05:42] LABS: Sodium 133 mmol/L (136-145)
--- NOTE | 2022-03-29 05:42 | PC.NURSE ---
Dr. Todd at
[2022-03-29 05:44] LABS: Alanine Aminotransferase 44 U/L (12-78); Alkaline Phosphatase 205 U/L (38-126); Amylase 240 U/L (30-110); Aspartate Amino Transferase 39 U/L (17-59); Bilirubin,Total 0.2 mg/dl (0.2-1.3); Blood Urea Nitrogen 64 mg/dl (9-20); Carbon Dioxide 17 mmol/L (22.0-30.0); Creatinine Clearance Estimated 40 mL/min (50-200); Estimated Glomerular Filt Rate 35 ml/min (>60); GFR (African American) 43 ML/MIN (>60)
--- NOTE | 2022-03-29 05:44 | HMH.EDNVD ---
Discharge Plan Disposition Patient Disposition: Still a Patient Chief Complaint: Nausea/Vomiting/Diarrhea Prescriptions Prescriptions: No Action quetiapine [Seroquel] 100 MG tablet 100 mg PO HS escitalopram oxalate [Lexapro] 10 MG tablet 10 mg PO DAILY melatonin 3 mg tablet 3 mg PO HS atorvastatin [Lipitor] 40 MG tablet 40 mg PO HS pantoprazole 40 mg tablet,delayed release (DR/EC) 40 mg PO DAILY Referrals Follow up/Referrals: Provider,Referral, MD [Referring] - See instructions Clinical Impressions Clinical Impression: Ileostomy in place, Hypercalcemia, Acute UTI (urinary tract infection) Instructions Patient Instructions: DI for Diarrhea and Traveler's Diarrhea -- Adult, DI for Diarrhea and Traveler's Diarrhea -- Child, DI for Nausea -- Adult, DI for Nausea -- Child Discharge ED Provider: Gokul Lowe Nausea/Vomiting/Diarrhea HPI General Chief complaint: Nausea/Vomiting/Diarrhea Stated complaint: Vomiting Time Seen by Provider: 03/29/22 05:44 Mode of Arrival: EMS Source of Information: Patient, EMS and Medical Record Limitations: No Limitations Description of Symptoms (Recalled from ER Triage Doc. by RN): Pt c/o nausea, vomiting, and liquid stool per ostomy. States he has not voided since 1800 (03/28). He feels he is dehydrated and my calcium is low . Pt reports feeling hot but no temperature obtained. Pt also reports SOA when vomiting. History of Present Illness HPI Narrative: nausea and vomiting with liquid stool ileostomy over the last few days - pt reports weakness - hx of multiple abd surg and has seen ent for abn thyroid/parathyroid MD complaint: nausea, vomiting and diarrhea Onset (ago): day(s) Description of Diarrhea: water Associated Abdominal Pain: Yes Severity: moderate Context: history of abdominal surgery Associated symptoms: weakness Related Data Home Medications Medication Instructions Recorded Confirmed escitalopram oxalate 10 mg tablet 10 mg PO DAILY Depression 09/30/21 03/29/22 (Lexapro) quetiapine 100 mg tablet (Seroquel) 100 mg PO HS Insomnia 09/30/21 03/29/22 atorvastatin 40 mg tablet (Lipitor) 40 mg PO HS Cholesterol 12/14/21 03/29/22 melatonin 3 mg tablet 3 mg PO HS Insomnia 02/19/22 03/29/22 pantoprazole 40 mg tablet,delayed 40 mg PO DAILY GERD 03/29/22 03/29/22 release Allergies Allergy/AdvReac Type Severity Reaction Status Date / Time aspirin Allergy Verified 03/06/22 15:21 codeine Allergy Verified 03/06/22 15:21 PFSH PFSH Medical History (Updated 03/29/22 @ 08:06 by David Todd MD) ARIELLA (acute kidney injury) Colostomy in place Dehisced intestinal anastomosis Depressed GERD (gastroesophageal reflux disease) Hypercalcemia Hyperlipemia Hypertension Ileostomy in place Intra-abdominal abscess post-procedure Mass of colon Parathyroid adenoma Physical deconditioning Thyroid disorder Thyroid Nodule Vasectomy planned Surgical History (Updated 03/06/22 @ 15:24 by Rebecca Dunlap CMA) History of vasectomy Status post partial colectomy Family History Other No significant family history Social History (Updated 02/27/22 @ 17:12 by Helen Perez RN) Smoking Status: Current every day smoker tobacco type: cigarettes packs per day: 2 years smoked: 40 alcohol intake: never substance use type: denies use 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
[2022-03-29 05:45] LABS: Albumin Level 4.3 g/dl (3.5-5.0); Albumin/Globulin Ratio 1.1 (1.1-1.8); Globulin 3.9 g/dL (1.3-3.2); Glucose 95 mg/dl (74-100); Lipase 584 U/L (23-300); Total Protein,Serum 8.2 g/dl (6.3-8.2)
[2022-03-29 05:47] LABS: Calcium 13.3 mg/dl (8.4-10.2)
--- NOTE | 2022-03-29 05:47 | PC.NURSE ---
Critical calcium notified to Dr. Todd
--- NOTE | 2022-03-29 06:00 | XR_ITS ---
FINAL REPORT CLINICAL HISTORY: sob COMPARISON: 01/09/2022 FINDINGS: The heart size is normal. The mediastinum is within normal limits. The lungs are better inflated. There is minimal scarring or atelectasis in the right lung base. There is no pleural effusion. There is no pneumothorax. The bony thorax is intact. IMPRESSION: No acute cardiopulmonary process. Reviewed, Interpreted and Dictated by Azra Zavaleta MD Transcribed by Ayo Godoy Authenticated and [facility]
--- NOTE | 2022-03-29 06:03 | PC.NURSE ---
Pt gone to RAD for Abd CT and CXR
[2022-03-29 06:07] LABS: Adenovirus F 40/41, stool Not Detected (NotDetected); Astrovirus Not Detected (NotDetected); Campylobacter Not Detected (NotDetected); Clostridium Difficile A/B, PCR Not Detected (NotDetected); Cryptosporidium Not Detected (NotDetected); Cyclospora Cayetanesis Not Detected (NotDetected); Entamoeba histolytica Not Detected (NotDetected); Enteroaggregative E coli Not Detected (NotDetected); Enteropathogenic E coli Not Detected (NotDetected); Enterotoxigenic E coli Not Detected (NotDetected); Giardia lamblia Not Detected (NotDetected); Microscopic, Urine URINE MICROSCOPIC (MICROSCOPIC); Norovirus Not Detected (NotDetected); Plesimonas Shigalloides, PCR Not Detected (NotDetected); Rotavirus A Not Detected (NotDetected); Salmonella, PCR Not Detected (NotDetected); Sapovirus Not Detected (NotDetected); Shiga-like toxin E coli Not Detected (NotDetected); Shigella Enterovasive E coli Not Detected (NotDetected); Vibrio Cholerae Not Detected (NotDetected); Vibrio, PCR Not Detected (NotDetected); Yersinia Entercolitica, PCR Not Detected (NotDetected)
[2022-03-29 06:08] LABS: Appearance,Urine CLOUDY (Clear); Bilirubin,Urine Negative (Negative); Blood, Urine 3+ (Negative); Color,Urine YELLOW (Yellow); Glucose,Urine (UA) Negative (Negative); Ketones,Urine Negative (Negative); Leukocyte Esterase,Urine 3+ (Negative); Nitrate,Urine Negative (Negative); Protein,Urine 1+ (Negative); Urobilinogen,Urine 0.2 EU/dl (0.2)
--- NOTE | 2022-03-29 06:15 | CT_ITS ---
FINAL REPORT TECHNIQUE: Axial CT images were performed from the lung bases through the pubic symphysis. Coronal reformats were submitted and reviewed. This study was performed with techniques to keep radiation doses as low as reasonably achievable (ALARA). Individualized dose reduction techniques using automated exposure control or adjustment of mA and/or kV according to the patient's size were employed. CLINICAL HISTORY: Abd pain COMPARISON: February 27, 2022 FINDINGS: Abdomen: There is pleural and parenchymal scarring in the lung bases. The gallbladder is present. The liver, spleen and pancreas are unremarkable. There is stable asymmetric enlargement of the right adrenal gland that may be due to hyperplasia. There are multiple bilateral nonobstructing renal stones. Largest stone on the left measures 11 mm. Largest stone on the right measures up to 20 mm and has increased since the prior exam. There is a 5.3 cm cyst in the lower pole the right kidney. There is no hydronephrosis. Pelvis: There are ostomies in the right and left anterior pelvic wall. The appendix is not identified. There are no distal ureteral stones. The urinary bladder is unremarkable. IMPRESSION: Extensive bilateral nonobstructing renal stones, similar to prior. Largest right stone has increased since the prior. Benign-appearing right renal cyst, slightly increased. Stable anterior pelvic wall ostomies. Stable asymmetric enlargement of the right adrenal gland. Reviewed, Interpreted and Dictated by Azar Zavaleta MD Transcribed by Ayo Godoy Authenticated and [facility]
[2022-03-29 06:24] LABS: Bacteria,Urine 3+ /lpf; Hyaline Casts,Urine Occasional #/lpf (0); WBC,Urine 20-50 #/hpf (0-3)
--- NOTE | 2022-03-29 06:24 | PC.NURSE ---
Pt back from RAD
[2022-03-29 06:30] VITALS: BP 113/81; PULSE 68; RESP 20; O2SAT 97
[2022-03-29 07:01] VITALS: BP 110/79; PULSE 66; RESP 20; O2SAT 100
--- NOTE | 2022-03-29 08:10 | PC.NURSE ---
lab at bedside
--- NOTE | 2022-03-29 08:11 | PC.NURSE ---
DR. RESTREPO AT BEDSIDE
[2022-03-29 08:30] VITALS: BP 114/78; PULSE 76; RESP 20; O2SAT 100
--- NOTE | 2022-03-29 09:26 | PC.NURSE ---
DR RESTREPO AT BEDSIDE TO UPDATE PT ON POC
[2022-03-29 10:00] VITALS: BP 114/79; PULSE 76; RESP 20; TEMP 36.6; O2SAT 99
== END 2022-03-29 10:00 | disposition still patient (30) ==
PROVIDERS: Emergency Medicine; Emergency Provider Emergency Medicine; PCP Family Medicine
DX: N39.0 Urinary tract infection, site not specified (principal); E83.52 Hypercalcemia; B95.7 Other staphylococcus as the cause of diseases classified elsewhere; Z16.11 Resistance to penicillins; Z93.2 Ileostomy status; Z79.899 Other long term (current) drug therapy; F32.A Depression, unspecified; G47.00 Insomnia, unspecified; K21.9 Gastro-esophageal reflux disease without esophagitis; Z88.6 Allergy status to analgesic agent; E78.5 Hyperlipidemia, unspecified; I10 Essential (primary) hypertension
CPT/HCPCS: 36415; 71045; 74176; 80053; 81001; 82150; 83605; 83690; 85025; 87040; 87077; 87086; 87186; 87507; 96365; 96366; 96367; 96375; 99285; J0696; J2405

== ENCOUNTER → 2022-04-13 08:59 | Outpatient (CLI) | payer OTHER, SELFPAY ==
--- NOTE | 2022-04-13 09:05 | NM_ITS ---
FINAL REPORT CLINICAL HISTORY: PARATHYROID ADENOMA rt side FINDINGS: 21.0 mCi Technetium Sestamibi was administered. Planar imaging was performed early and two-hour delayed of the neck and upper thorax. Early imaging shows physiologic uptake within the upper neck involving the salivary glands and lower neck involving the thyroid gland. On 2 hour delayed imaging there is persistent contrast enhancement in the region of the base of the neck bilaterally. IMPRESSION: Persistent contrast enhancement at the base of the neck bilaterally on 2 hour delayed imaging. Bilateral parathyroid adenomas or hyperplasia cannot be excluded. CT or ultrasound may be helpful for correlation. Reviewed, Interpreted and Dictated by Arsenio Garcias III, MD Transcribed by Ayo Godoy Authenticated and [facility]
== END ==
PROVIDERS: PCP Family Medicine; Visit Provider Otolaryngology
DX: D35.1 Benign neoplasm of parathyroid gland (principal)
CPT/HCPCS: 78070; A9500

== ENCOUNTER → 2022-05-16 08:45 | Outpatient (CLI) | payer OTHER, SELFPAY ==
--- NOTE | 2022-05-16 08:52 | CT_ITS ---
FINAL REPORT TECHNIQUE: Axial images through the abdomen and pelvis were performed without contrast. This study was performed with techniques to keep radiation doses as low as reasonably achievable, (ALARA). Individualized dose reduction techniques using automated exposure control or adjustment of mA and/or kV according to the patient's size were employed. CLINICAL HISTORY: abdominal pain,COLOSTOMY HARDNESS, PATIENT STATES PUS CAME OUT OF AREA COMPARISON: 03/29/2022 FINDINGS: Abdomen: There is scarring at the left lung base. The gallbladder is contracted. The liver parenchyma is homogeneous. The spleen, pancreas and adrenals are unremarkable. There is a multitude of bilateral kidney stones measuring up to 1.5 cm in greatest dimension and are general similar to the prior exam. There is a dominant right renal cyst arising from the lower pole measuring up to 6.1 cm. Pelvis: There are right and left anterior pelvic wall ostomies which were present previously. On the left at the colostomy site there is now inflammatory reaction was was not seen previously. These findings are well seen on images 64-66 series 3. A discrete abscess is not identified. There is a stone in the dependent portion of the urinary bladder which measures 1.3 cm. The appendix is present, a few small appendicoliths are seen within the appendix and are unchanged from the previous exam. There is no pelvic mass or inflammation. IMPRESSION: Large bilateral renal stones. Right and left anterior pelvic wall ostomies with inflammation surrounding the left anterior pelvic wall ostomy possibly related to acute diverticulitis at the ostomy site. No definite abscess is seen. 1.3 cm urinary bladder stone. Reviewed, Interpreted and Dictated by Azar Zavaleta MD Transcribed by Lawanda Conley Authenticated and [facility]
== END ==
PROVIDERS: PCP Family Medicine; Visit Provider Surgery
DX: R10.9 Unspecified abdominal pain (principal)
CPT/HCPCS: 74176

== ENCOUNTER → 2022-07-04 13:11 | Outpatient (CLI) | payer OTHER, SELFPAY ==
[2022-07-04 13:23] LABS: MANUAL DIFFERENTIAL MANUAL DIFFERENTIAL (MANUAL DIFF)
[2022-07-04 14:15] LABS: Basophils # 0.1 K/mm3 (0-0.2); Basophils % 0.5 % (0.1-2.0); Eosinophils # 0.3 K/mm3 (0.0-0.4); Hematocrit 39.2 % (42.0-52.0); Hemoglobin 12.6 g/dL (14.1-18.0); Lymphocytes # 2.5 K/mm3 (0.7-4.5); Lymphocytes % 26.8 % (10-50); Mean Corpuscular Hemoglobin 27.9 pg (27.0-31.2); Mean Corpuscular Volume 87.1 fl (80-94); Mean Platelet Volume 8.8 fl (7.4-10.4); Monocytes # 0.7 K/mm3 (0.1-1.0); Monocytes % 7.3 % (1.7-9.3); Neutrophils # 5.7 K/mm3 (1.8-7.8); Neutrophils % 62.2 % (37.0-80.0); Platelet Count 285 K/mm3 (142-424); Red Cell Distribution Width 15.1 % (11.5-17.5); White Blood Count 9.1 K/mm3 (4.8-10.8)
[2022-07-04 14:18] LABS: Chloride 108 mmol/L (98-107); Potassium 4.5 mmoL/L (3.5-5.1); Sodium 139 mmol/L (136-145)
[2022-07-04 14:20] LABS: Alanine Aminotransferase 22 U/L (12-78); Aspartate Amino Transferase 32 U/L (17-59); Blood Urea Nitrogen 19 mg/dl (9-20); Estimated Glomerular Filt Rate 49 ml/min (>60); GFR (African American) 59 ML/MIN (>60)
[2022-07-04 14:21] LABS: Albumin Level 4.2 g/dl (3.5-5.0); Albumin/Globulin Ratio 1.2 (1.1-1.8); Alkaline Phosphatase 148 U/L (38-126); Anion Gap 12.5 mEq/L (5-15); Bilirubin,Total 0.9 mg/dl (0.2-1.3); Carbon Dioxide 23 mmol/L (22.0-30.0); Globulin 3.4 g/dL (1.3-3.2); Glucose 91 mg/dl (74-100); Total Protein,Serum 7.6 g/dl (6.3-8.2)
[2022-07-04 14:31] LABS: Calcium 12.1 mg/dl (8.4-10.2)
[2022-07-04 15:07] LABS: Intact Parathyroid Hormone 54.2 pg/mL (7.5-53.5)
[2022-07-04 16:35] LABS: Eosinophils % 2 % (0-3); Lymphocytes % 42 % (10-50); Monocytes % 4 % (2-9); Neutrophils % 52 % (42-76); Platelet Estimate Normal; RBC Morphology Normal; Total Cells Counted 100
== END ==
PROVIDERS: PCP Family Medicine; Visit Provider Otolaryngology
DX: E04.1 Nontoxic single thyroid nodule (principal); D35.1 Benign neoplasm of parathyroid gland
CPT/HCPCS: 36415; 80053; 83970; 85007; 85014; 85018; 85048; 85049

== ENCOUNTER 2022-07-11 15:11 | Observation (INO) | payer OTHER, SELFPAY ==
[2022-07-10 13:46] VITALS: BMI 21.3
--- NOTE | 2022-07-10 13:56 | SUR.PREOP ---
Spoke with Jim in specialty clinic to report abnormal labs, including critical calcium level. Dr. Ortiz aware and plans to continue with surgery planned ofr 07/10/22
[2022-07-11] VITALS (26 sets, daily range): BP systolic 109–152; BP diastolic 69–104; PULSE 65–96; RESP 16–20; TEMP 36.5–43; O2SAT 95–100; BMI 20.2
--- NOTE | 2022-07-11 10:07 | P.PN_ITS ---
[facility] Disclaimer: The information contained in this section may have been updated after the patient was seen, as this information can be updated by other users. Medical History ARIELLA (acute kidney injury) Colostomy in place Dehisced intestinal anastomosis Depressed Dyspnea on exertion GERD (gastroesophageal reflux disease) History of pleural effusion Hypercalcemia Hyperlipemia Hypertension Ileostomy in place Would benefit from convex appliance, appropriate size. 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.) Travel in the last 8 weeks: None household members: children housing: house current occupational exposures/hazards: No caffeine: Yes [facility] Anesthesia Checklist Patient Identification Patient Identification: Arm Band Structural Data Admitted From: Home Planned Operative Procedure/s: Parathyroidectomy, Right Thyroid Lobectomy Consent for Planned Operative Procedure(s) Verified: Yes Verified Documents: Surgical Consent and History and Physical NPO Status Verified Time NPO: 00:00 Additional verifications Anesthesia Reactions: No Hx Blood Transfusions: No Blood Transfusion Reaction: No Airway Assessment C-Spine Mobility Assessed: Yes TMJ Mobility Assessed: Yes Dentition: Edentulous Neurological Assessment Level of Consciousness: Awake and Alert Anesthesia Plan Anesthesia Risk discussed: Yes Anesthesia Plan: Verified ASA Class: II Anesthesia Type: General
--- NOTE | 2022-07-11 11:57 | SUR.OPER ---
1157- Parathyroid specimens sent to pathologist 1218- MD Ortiz speaking to MD Fisher, pathology regarding pathology results 1224- Additional parathyroid specimen sent to MD Fisher
--- NOTE | 2022-07-11 12:35 | SUR.OPER ---
1235- MD Ortiz speaking to Dr Fisher, pathologist regarding specimen #3 results
--- NOTE | 2022-07-11 12:56 | EXP.ANES.I ---
[facility] Anesthesia Record Part I Anesthesia Record I Intake, IV Amount: 1,600 Estimated blood loss (mL): 20 Urine output (mL): 0 Blood Products used (#): none Blood Pressure: 152/104 SaO2: 97 Pulse Rate: 96 Respiratory Rate: 16 Temperature: 97.9 F Patient is:: Drowsy and Stable Stable to PACU at:: 12:50
--- NOTE | 2022-07-11 12:58 | EXP.OP.NOTE ---
Date of procedure: 07/11/22 Pre-op Diagnosis:: Primary hyperparathyroidism, right thyroid nodule Post-op Diagnosis:: Primary hyperparathyroidism, right thyroid nodule Procedure performed:: Right thyroid lobectomy, parathyroidectomy with frozen section, nerve integrity monitoring of the recurrent laryngeal nerves bilaterally Surgeon:: Tae Ortiz MD PHARMACY RESIDENT:: Junior Mace Anesthesia: GETA Estimated blood loss (mL): 100 Operative findings:: Hyperplastic right thyroid lobe with included nodule, small amount of parathyroid tissue adherent to the thyroid capsule inferiorly on the right, 1 cm hypercellular parathyroid gland superior pole right side consistent with parathyroid adenoma. Operative note:: Patient was brought to the operating room and spine and after adequate general anesthesia nerve integrity monitoring electrodes were placed to monitor for recurrent laryngeal nerves. 1% lidocaine with epinephrine was used to locally infiltrate a skin crease overlying the palpable right thyroid lobe and then the skin incision made and carried through the underlying platysma's and subplatysmal flaps elevated superiorly and inferiorly. Self-retaining retractor was applied. Strap muscles were divided at midline and retracted laterally and dissection performed down to the thyroid isthmus. The thyroid isthmus was elevated from the anterior tracheal wall and ligated and divided with harmonic scalpel. The anterior suspensory ligament was then divided with harmonic scalpel then attention drawn to the superior pole. The superior pole vascular pedicle was identified and isolated next to the gland capsule and ligated and divided with harmonic scalpel and then numerous vascular perforators at the superior pole were similarly isolated next to the capsule ligated and divided with harmonic scalpel. The middle thyroid vein was identified isolated and ligated Capsule with a harmonic scalpel and then attention drawn to the inferior pole. Numerous vascular perforators from the thyroid isthmus and inferior pole were sequentially isolated, ligated and divided with harmonic scalpel and then dissection performed along the thyroid capsule. The right thyroid lobe was hypertrophic and there was a palpable firm nodule within the lobe. Dissection was performed along the capsule it from the surrounding soft tissues and dissection performed at the tracheoesophageal groove where the recurrent laryngeal nerve was identified in its usual location and confirmed with nerve stimulator. The thyroid lobe was dissected from the lateral surface of the recurrent laryngeal nerve and then the posterior suspensory ligament divided with harmonic scalpel and hemostasis established here using ligaclips. The right thyroid lobe was then inspected and there was what appeared to be parathyroid tissue at the inferior pole and there was a smaller nodule at the thyroid isthmus. Small amount of parathyroid tissue was dissected free from the inferior pole and sent for frozen section analysis as well as the nodule at the isthmus. Nodule at the isthmus by frozen section was a lymph node and the tissue at the inferior pole was consistent with parathyroid tissue. The thyroid bed was further explored and there was a 1 cm nodular mass near the recurrent laryngeal nerve as it entered the larynx. This was more consistent with enlarged parathyroid adenoma. Careful dissection was performed around this mass it from the recurrent laryngeal nerve and hemostasis was established with ligaclips and frozen section was obtained on this third mass. Frozen section was consistent with hypercellular parathyroid gland. Thyroid bed was then irrigated with normal saline and hemostasis was seen to be adequate. Closure was then accomplished with 4-0 Vicryl to reapproximate the platysma and strap muscles and then 5-0 nylon to reapproximate skin edges. A sterile dressing was placed and the procedure concluded. All counts rosa
--- NOTE | 2022-07-11 14:02 | EXP.ANES.II ---
[facility] Anesthesia Record Part II Anesthesia Record Part II Discharge Time: 13:20 Destination: Surgical Day Care (OP Surgery) PACU nurse assessment reviewed?: Yes Patient Condition:: Good Anesthesia Complications:: None Swallowing reflex intact?: Yes Cyanosis?: No Blood Pressure: 146/95 Pulse Rate: 78 Temperature: 97.9 F Mental Status: Alert & Oriented Pain level:: 0 Nausea and/or vomitting:: None Intake, IV Amount: 0
--- NOTE | 2022-07-11 14:33 | SUR.PHASEII ---
1405 - Contacted Angel d/t pt and pt's family concerned about pt being discharged home. Pt's sister in-law states that he has no one to help take care of him and he will be alone antolinight, concerned for his safety. Relayed this message to Carmen, awaiting call back r/t MD being in a room w/ a patient at this time. 1420 - Received call from Dr. Ortiz, updated on plan of care. MD reaching out to hospitalist about possible admission. Pt and family member updated on plan of care. Pt positioned, dietary called for milk shake. Resting @ this time. 1440 - Received call from Dr. Juarez, will be down to see pt soon. 1444 - Dr. Juarez @ bedside assessing pt.
--- NOTE | 2022-07-11 15:04 | SUR.PHASEII ---
jensen morales called. pt is being admitted to room 201
--- NOTE | 2022-07-11 15:13 | HMH.PHAINT1 ---
Pharmacy Intervention Comments: MEDICATION RECONCILIATION COMPLETED ON PATIENT USING EXTERNAL FILL HISTORY FROM PHARMACY. -ROJAS VAN, MALIKD
--- NOTE | 2022-07-11 15:17 | EXP.HP ---
History of Present Illness *Admission Date: 07/11/22 *Reason for visit:: Postoperative pain, hyperparathyroidism *History of present illness: Mr. Willis is an unfortunate 51-year-old gentleman with multiple hospitalizations over the past year for hyperparathyroidism, hypercalcemia, colon mass status post colectomy and ileostomy.? He has subsequently lost significant weight.? Presented today for elective right thyroid lobectomy and partial parathyroidectomy by Dr. Ortiz.? Patient's underlying medical conditions unfortunately complicate his ability to go home and he is having significant difficulty with pain control at this time.? He additionally needs close monitoring for labs with PTH and calcium in the morning for which she is unable to come back to the hospital.? Discussion with family and patient, decision made to admit for observation overnight for clinical monitoring, pain control, and repeat serial lab work.? At this time patient denies any shortness of breath, chest pain, diarrhea.? Does have some nausea after pain medication.? Stable on room air.? Having pain in right side of his neck.? Of note, was seen in surgery clinic on 06/28 due to follow-up for peristomal abscess with fistula to midline incision.? Has had some scant drainage at the site.? Just finished a course of antibiotics.? Denies any fever, redness, increased tenderness or swelling of abdominal scar.? Due for follow-up in the coming week with surgery for reevaluation.? ?? History complicated by COPD, CKD, hypertension, depression, sleep disorder? [facility] Disclaimer: The information contained in this section may have been updated after the patient was seen, as this information can be updated by other users. Medical History ARIELLA (acute kidney injury) Colostomy in place Dehisced intestinal anastomosis Depressed Dyspnea on exertion GERD (gastroesophageal reflux disease) History of pleural effusion Hypercalcemia Hyperlipemia Hypertension Ileostomy in place Intra-abdominal abscess post-procedure Mass of colon Parathyroid adenoma Physical deconditioning Pleural effusion Smoking greater than 30 pack years Thyroid disorder Thyroid Nodule Vasectomy planned Surgical History History of vasectomy Status post partial colectomy Family History No significant family history Social History (Updated 07/11/22 @ 16:17 by Irene Diaz RN) Smoking Status: Current every day smoker tobacco type: cigarettes packs per day: 1 years smoked: 40 alcohol intake: never substance use type: denies use current occupational status: 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 and 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[employer] , 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.) Travel in the last 8 weeks: None household members: children housing: house current occupational exposures/hazards: No caffeine: Yes Review of Systems Review of Systems Review of systems (narrative): 14 point review of systems performed, pertinent positives and negatives as per HPI Meds Home Medications and Allergies Home Medications Medication Instructions Recorded Confirmed Type quetiapine 100 mg tablet (Seroquel) 100 mg PO HS MOOD 09/30/21 07/10/22 History atorvastatin 40 mg tablet (Lipitor) 40 mg PO HS Cholesterol 12/14/21 07/10/22 History melatonin 3 mg tablet 3 mg PO HS Insomnia 02/19/22 07/10/22 History pantoprazole 40 mg tablet,delayed 40 mg PO DAILY GERD 03/29/22 07/10/22 History release ibuprofen 800 mg tablet 800 mg PO NEEDED PRN Pain 04/11/22 07/11/22 History ondansetron HCl 4 mg tablet 4 mg PO Q8HP PRN Nausea And 07/10/22 07/11/22 History Vomiting cephalexin 500 mg capsule 500 mg PO TID #30 caps 07/11/22 Rx hydrocodone 7.5 mg-acetaminophen 1 tab PO Q6H PRN pain #14 tabs 07/11/22 Rx 325 mg tablet New Prescriptions to Start Prescriptions: cephalTae Dunbar
--- NOTE | 2022-07-11 15:34 | PC.NURSE ---
arrived by stretcher from surgery
[2022-07-11 16:33] LABS: Coronavirus 19, PCR Not Detected (NotDetected); Influenza A, PCR Not Detected (NotDetected); Influenza B, PCR Not Detected (NotDetected)
--- NOTE | 2022-07-11 16:55 | PC.NURSE ---
pt alert x4. dsg to throat cdi. pt has no c/o of pain or nausea since coming to floor, pt still drowsy. adequate uop. ileostomy with multiple pus pockets around it, this has been an ongoing issue and pts doctor knows about it. pt states he will call out for supplies as he will change his own ileostomy bag. no other skin issues noted. lungs diminished yoselin t/o. vss. cb within reach, pt currently eating supper. no complaints voiced.
[2022-07-11 17:47] LABS: Basophils % 0.2 % (0.1-2.0); Eosinophils # 0.1 K/mm3 (0.0-0.4); Eosinophils % 0.5 % (0.1-12.0); Hematocrit 38.7 % (42.0-52.0); Lymphocytes # 1.9 K/mm3 (0.7-4.5); Lymphocytes % 17.5 % (10-50); Mean Corpuscular HGB Conc 30.9 g/dL (31.8-35.4); Mean Corpuscular Volume 87.3 fl (80-94); Mean Platelet Volume 8.5 fl (7.4-10.4); Monocytes # 0.2 K/mm3 (0.1-1.0); Monocytes % 1.5 % (1.7-9.3); Neutrophils # 8.5 K/mm3 (1.8-7.8); Neutrophils % 80.3 % (37.0-80.0); Platelet Count 271 K/mm3 (142-424); Red Blood Count 4.43 M/mm3 (4.60-6.20); Red Cell Distribution Width 14.3 % (11.5-17.5); White Blood Count 10.6 K/mm3 (4.8-10.8)
[2022-07-11 17:55] LABS: Chloride 107 mmol/L (98-107); Sodium 138 mmol/L (136-145)
[2022-07-11 17:56] LABS: Potassium 4.3 mmoL/L (3.5-5.1)
[2022-07-11 17:58] LABS: Alanine Aminotransferase 32 U/L (12-78); Albumin Level 3.9 g/dl (3.5-5.0); Albumin/Globulin Ratio 1.1 (1.1-1.8); Alkaline Phosphatase 159 U/L (38-126); Anion Gap 9.3 mEq/L (5-15); Aspartate Amino Transferase 34 U/L (17-59); Bilirubin,Total 0.4 mg/dl (0.2-1.3); Blood Urea Nitrogen 22 mg/dl (9-20); Calcium 11.9 mg/dl (8.4-10.2); Carbon Dioxide 26 mmol/L (22.0-30.0); Creatinine Clearance Estimated 53 mL/min (50-200); Estimated Glomerular Filt Rate 49 ml/min (>60); GFR (African American) 59 ML/MIN (>60); Globulin 3.5 g/dL (1.3-3.2); Glucose 125 mg/dl (74-100); Total Protein,Serum 7.4 g/dl (6.3-8.2)
[2022-07-12 03:49] VITALS: BP 102/66; PULSE 66; RESP 18; TEMP 36.5; O2SAT 99; BMI 20.7
--- NOTE | 2022-07-12 05:54 | PC.NURSE ---
Pt has rested well through the night. A&Ox4. Room air. Complaints of pain in neck d/t sx. Prn pain med given per mar. No distress noted. VSS. Planning to go home today pending lab results.
[2022-07-12 06:36] LABS: Basophils % 0.2 % (0.1-2.0); Eosinophils % 0.1 % (0.1-12.0); Hematocrit 32.5 % (42.0-52.0); Lymphocytes # 3.2 K/mm3 (0.7-4.5); Lymphocytes % 25.6 % (10-50); Mean Corpuscular HGB Conc 32.1 g/dL (31.8-35.4); Mean Corpuscular Volume 87.5 fl (80-94); Mean Platelet Volume 8.4 fl (7.4-10.4); Neutrophils # 8.1 K/mm3 (1.8-7.8); Platelet Count 288 K/mm3 (142-424); Red Blood Count 3.72 M/mm3 (4.60-6.20); Red Cell Distribution Width 14.2 % (11.5-17.5); White Blood Count 12.3 K/mm3 (4.8-10.8)
[2022-07-12 06:57] LABS: Alanine Aminotransferase 24 U/L (12-78); Albumin Level 3.4 g/dl (3.5-5.0); Albumin/Globulin Ratio 1.1 (1.1-1.8); Alkaline Phosphatase 130 U/L (38-126); Anion Gap 7.8 mEq/L (5-15); Aspartate Amino Transferase 26 U/L (17-59); Bilirubin,Total 0.3 mg/dl (0.2-1.3); Blood Urea Nitrogen 25 mg/dl (9-20); Calcium 10.9 mg/dl (8.4-10.2); Carbon Dioxide 25 mmol/L (22.0-30.0); Chloride 108 mmol/L (98-107); Creatinine Clearance Estimated 54 mL/min (50-200); Estimated Glomerular Filt Rate 49 ml/min (>60); GFR (African American) 59 ML/MIN (>60); Globulin 3.1 g/dL (1.3-3.2); Glucose 112 mg/dl (74-100); Potassium 3.8 mmoL/L (3.5-5.1); Sodium 137 mmol/L (136-145); Total Protein,Serum 6.5 g/dl (6.3-8.2)
[2022-07-12 07:08] LABS: Intact Parathyroid Hormone 76.3 pg/mL (7.5-53.5)
--- NOTE | 2022-07-12 07:13 | EXP.DC.SUM ---
General Admission date:: 07/11/22 Discharge date: 07/12/22 HPI HPI HPI: Mr. Willis is an unfortunate 51-year-old gentleman with multiple hospitalizations over the past year for hyperparathyroidism, hypercalcemia, colon mass status post colectomy and ileostomy.? He has subsequently lost significant weight.? Presented today for elective right thyroid lobectomy and partial parathyroidectomy by Dr. Ortiz.? Patient's underlying medical conditions unfortunately complicate his ability to go home and he is having significant difficulty with pain control at this time.? He additionally needs close monitoring for labs with PTH and calcium in the morning for which she is unable to come back to the hospital.? Discussion with family and patient, decision made to admit for observation overnight for clinical monitoring, pain control, and repeat serial lab work.? At this time patient denies any shortness of breath, chest pain, diarrhea.? Does have some nausea after pain medication.? Stable on room air.? Having pain in right side of his neck.? Of note, was seen in surgery clinic on 06/28 due to follow-up for peristomal abscess with fistula to midline incision.? Has had some scant drainage at the site.? Just finished a course of antibiotics.? Denies any fever, redness, increased tenderness or swelling of abdominal scar.? Due for follow-up in the coming week with surgery for reevaluation.? ?? History complicated by COPD, CKD, hypertension, depression, sleep disorder? Hospital Course Hospital Course Hospital Course: 51-year-old male with history of hyperparathyroidism, hypercalcemia, and colectomy?admitted for observation after surgery due to need for pain control and monitoring of PTH/calcium.? Problems addressed as follows: Right thyroid lobectomy? Partial parathyroidectomy? Hyperparathyroidism -Procedure performed by ENT on 07/11. Patient tolerated well. Having some pain but stable on current regimen. Monitored overnight with no further issues. Pain medication and antibiotics sent by ENT yesterday after surgery. Complete these medications as ordered. Labs obtained this morning to monitor calcium and PTH. Calcium 10.9 on morning labs PTH elevated at 73. Has close follow-up with ENT in the coming weeks. Medically stable for discharge home. ?? Colostomy? -Reviewed patient's previous notes with surgery regarding his colostomy and bowel obstructions. Normal output at this time. Ileostomy bag exchanged. Has follow-up with surgery in 2 weeks to monitor chronic draining fistula ? CKD - Creatinine stable at 1.5. ? Depression - Continued home Seroquel. Medically stable for discharge home. Follow-up with outpatient appointments as scheduled. Exam Data for Last 24 hours Vital signs and Labs for Last 24 Hours: Temp Pulse Resp BP Pulse Ox 97.7 F 66 18 102/66 L 99 07/12/22 03:49 07/12/22 03:49 07/12/22 03:49 07/12/22 03:49 07/12/22 03:49 Laboratory Results - last 24 hr 07/11/22 16:10: SARS-CoV-2 (PCR) Not detected, Influenza A Untype (PCR) Not detected, Influenza Type B (PCR) Not detected 07/11/22 17:40: WBC 10.6, RBC 4.43 L, Hgb 12.0 L, Hct 38.7 L, MCV 87.3, MCH 27.0, MCHC 30.9 L, RDW 14.3, Plt Count 271, MPV 8.5, Neut % (Auto) 80.3 H, Lymph % (Auto) 17.5, [place] % (Auto) 1.5 L, Eos % (Auto) 0.5, Baso % (Auto) 0.2, Neut # (Auto) 8.5 H, Lymph # (Auto) 1.9, [place] # (Auto) 0.2, Eos # (Auto) 0.1, Baso # (Auto) 0.0 07/11/22 17:40: Sodium 138, Potassium 4.3, Chloride 107, Carbon Dioxide 26, Anion Gap 9.3, BUN 22 H, Creatinine 1.50 H, Estimated Creat Clear 53, Estimated GFR 49 L, Est GFR ( Amer) 59, Glucose 125 H, Calcium 11.9 H, Magnesium 2.0, Total Bilirubin 0.4, AST 34, ALT 32, Alkaline Phosphatase 159 H, Total Protein 7.4, Albumin 3.9, Globulin 3.5 H, Albumin/Globulin Ratio 1.1 07/12/22 06:17: Sodium 137, Potassium 3.8, Chloride 108 H, Carbon Dioxide 25, Anion Gap 7.8, BUN 25 H, Creatinine 1.50 H, Estimated Creat Clear 54, Estimated GFR 49 L, Est GFR
[2022-07-12 07:23] VITALS: BP 117/70; PULSE 77; RESP 18; TEMP 36.6; O2SAT 100
[2022-07-12 07:39] LABS: Hemoglobin 10.4 g/dL (14.1-18.0)
[2022-07-12 09:14] VITALS: BMI 20.7
--- NOTE | 2022-07-19 12:48 | CARE MANAGER ---
Attempted to contact patient related to hospital discharge. No VM option. DANIA Umanzor
== END 2022-07-12 09:43 | disposition home or self-care (01) ==
LOC: 2ND 15:15
PROVIDERS: Admitting Provider Internal Medicine Adolescent Medicine; PCP Family Medicine; Referring Provider Otolaryngology; Visit Provider Internal Medicine Adolescent Medicine
PROC: (CPT 60500; principal; 2022-07-11 10:00)
DX: E21.0 Primary hyperparathyroidism (principal); E43 Unspecified severe protein-calorie malnutrition; Z68.20 Body mass index [BMI] 20.0-20.9, adult; D35.1 Benign neoplasm of parathyroid gland; E83.52 Hypercalcemia; E04.1 Nontoxic single thyroid nodule; Z20.822 Contact with and (suspected) exposure to COVID-19; G89.18 Other acute postprocedural pain; F17.210 Nicotine dependence, cigarettes, uncomplicated
CPT/HCPCS: 60210; 60500; G0379; 36415; 80053; 83735; 83970; 85025; 96374; C9803; G0378; J0330; J2405; U0003; U0005

== ENCOUNTER 2022-07-20 08:45 | Outpatient (CLI) | payer OTHER, SELFPAY ==
--- NOTE | 2022-07-20 09:18 | PC.WOUNDNOTE ---
Pt came to outpatient as scheduled. dressing was removed per PT prior to arrival. site had no s/s of infection, healing well. All sutures were removed without difficulty. Pt tolerated well. notified of wound healing satisfactory. L.King NAJERA
== END 2022-07-20 09:23 | disposition home or self-care (01) ==
LOC: OUTP 08:46
PROVIDERS: PCP Family Medicine; Visit Provider Otolaryngology
DX: D35.1 Benign neoplasm of parathyroid gland (principal); L02.211 Cutaneous abscess of abdominal wall
CPT/HCPCS: G0463

== ENCOUNTER → 2022-07-27 09:40 | Outpatient (CLI) | payer OTHER, SELFPAY ==
--- NOTE | 2022-07-27 09:49 | CT_ITS ---
FINAL REPORT TECHNIQUE: After the administration of intravenous contrast, axial images were obtained through the abdomen and pelvis by computed tomography. This study was performed with technique to keep radiation doses as low as reasonably achievable, (ALARA). Individualized dose reduction techniques using automated exposure control or adjustment of the MA and/or KV according to the patient's size were employed. CLINICAL HISTORY: abdominal pain, poss abd infection COMPARISON: 05/16/2022 FINDINGS: Abdomen: Scarring is seen in the left lung base. The liver is normal in size and attenuation. The spleen is unremarkable. The adrenals are normal. The pancreas is unremarkable. There are multiple, bilateral nonobstructing renal stones measuring up to 1.2 cm. A benign appearing cyst is present in the lower pole of the right kidney measuring up to 6.4 cm in diameter. The aorta is normal in caliber. There is no free fluid or adenopathy. There are ostomies of the bilateral abdominal and pelvic santiago. Extensive descending and sigmoid diverticulosis is seen which extends to the left anterior abdominal wall ostomy. Previously seen inflammatory reaction at this site has significantly improved. Pelvis: The appendix is not identified. There are linear stones in the dependent portion of the urinary bladder. There is no free fluid or adenopathy. IMPRESSION: Previously seen left anterior abdominal wall ostomy with associated diverticulitis has significantly improved or resolved. Bilateral, nonobstructing nephrolithiasis. Reviewed, Interpreted and Dictated by Azra Zavaleta MD Transcribed by Amberly Saenz Authenticated and [facility]
== END ==
PROVIDERS: PCP Family Medicine; Visit Provider Surgery
DX: Z93.2 Ileostomy status (principal); R10.9 Unspecified abdominal pain
CPT/HCPCS: 74177; Q9967

== ENCOUNTER → 2022-08-28 11:13 | Outpatient (CLI) | payer OTHER, SELFPAY ==
[2022-08-28 11:59] LABS: Basophils # 0.1 K/mm3 (0-0.2); Basophils % 0.9 % (0.1-2.0); Eosinophils # 0.3 K/mm3 (0.0-0.4); Eosinophils % 2.6 % (0.1-12.0); Hematocrit 45.5 % (42.0-52.0); Hemoglobin 14.1 g/dL (14.1-18.0); Lymphocytes # 3.2 K/mm3 (0.7-4.5); Lymphocytes % 28.6 % (10-50); Mean Corpuscular Hemoglobin 28.4 pg (27.0-31.2); Mean Corpuscular Volume 91.6 fl (80-94); Mean Platelet Volume 8.2 fl (7.4-10.4); Monocytes # 0.7 K/mm3 (0.1-1.0); Monocytes % 6.3 % (1.7-9.3); Neutrophils # 6.9 K/mm3 (1.8-7.8); Neutrophils % 61.6 % (37.0-80.0); Platelet Count 328 K/mm3 (142-424); Red Blood Count 4.96 M/mm3 (4.60-6.20); Red Cell Distribution Width 16.9 % (11.5-17.5); White Blood Count 11.2 K/mm3 (4.8-10.8)
[2022-08-28 12:48] LABS: Chloride 112 mmol/L (98-107); Sodium 138 mmol/L (136-145)
[2022-08-28 12:49] LABS: Potassium 4.6 mmoL/L (3.5-5.1)
[2022-08-28 12:51] LABS: Blood Urea Nitrogen 13 mg/dl (9-20); Estimated Glomerular Filt Rate 53 ml/min (>60); GFR (African American) 64 ML/MIN (>60)
[2022-08-28 12:52] LABS: Anion Gap 12.6 mEq/L (5-15); Calcium 10.8 mg/dl (8.4-10.2); Carbon Dioxide 18 mmol/L (22.0-30.0); Glucose 83 mg/dl (74-100)
[2022-09-18 04:52] LABS: PTH Related Peptide < 2.0
== END ==
PROVIDERS: Otolaryngology; PCP Family Medicine; Visit Provider Surgery
DX: L02.211 Cutaneous abscess of abdominal wall (principal); D35.1 Benign neoplasm of parathyroid gland; E21.0 Primary hyperparathyroidism; E83.52 Hypercalcemia
CPT/HCPCS: 36415; 80048; 82397; 85025

== ENCOUNTER 2022-09-03 06:04 | Day surgery (SDC) | payer OTHER, SELFPAY ==
[2022-08-30 13:17] VITALS: BMI 20.9
[2022-09-03] VITALS (10 sets, daily range): BP systolic 121–150; BP diastolic 71–96; PULSE 63–73; RESP 12–18; TEMP 36.4–43; O2SAT 95–100
--- NOTE | 2022-09-03 07:29 | EXP.ANES.CKL ---
[facility] Disclaimer: The information contained in this section may have been updated after the patient was seen, as this information can be updated by other users. Medical History ARIELLA (acute kidney injury) Colostomy in place Dehisced intestinal anastomosis Depressed Dyspnea on exertion GERD (gastroesophageal reflux disease) History of pleural effusion Hypercalcemia Hyperlipemia Hypertension Ileostomy in place Intra-abdominal abscess post-procedure Mass of colon Parathyroid adenoma Physical deconditioning Pleural effusion Smoking greater than 30 pack years Thyroid disorder Thyroid Nodule Vasectomy planned Surgical History History of colonoscopy History of partial thyroidectomy History of vasectomy Hx of parathyroidectomy Status post partial colectomy Family History Other No significant family history Social History Smoking Status: Current every day smoker tobacco type: cigarettes packs per day: 1 years smoked: 40 alcohol intake: former substance use type: former substance user and crack/cocaine current occupational status: unemployed Travel in the last 8 weeks: None household members: none housing: house lives independently: Yes marital status: education level: college service: Yes alf: No current occupational exposures/hazards: No caffeine: Yes special laith needs: No agree to transfusion: No do you feel safe at home: Yes victim of physical abuse: No victim of emotional abuse: No victim of sexual abuse: No would you like helpful sources: No [facility] Anesthesia Checklist Patient Identification Patient Identification: Arm Band Structural Data Admitted From: Home Planned Operative Procedure/s: I&D Abdominal Wall Consent for Planned Operative Procedure(s) Verified: Yes Verified Documents: Surgical Consent and History and Physical NPO Status Verified Time NPO: 00:00 Additional verifications Anesthesia Reactions: No Hx Blood Transfusions: No Blood Transfusion Reaction: No Airway Assessment C-Spine Mobility Assessed: Yes TMJ Mobility Assessed: Yes Dentition: Edentulous Neurological Assessment Level of Consciousness: Awake and Alert Anesthesia Plan Anesthesia Risk discussed: Yes Anesthesia Plan: Verified ASA Class: II Anesthesia Type: General
--- NOTE | 2022-09-03 07:58 | P.OP_ITS ---
Date of procedure: 09/03/22 Pre-op Diagnosis:: Nonhealing abdominal wound Post-op Diagnosis:: Same Procedure performed:: Incision and debridement of abdominal wound Surgeon:: Arsenio Marshall MD HOSPICE HOME CARE COORDINATOR:: Juinor Mace Anesthesia: LMA Estimated blood loss (mL): 3 Clinical Note:: Patient presents for debridement abdominal wound.? He has had repeated problems recently with increased tenderness and spontaneous drainage from a couple of areas in his midline scar.? 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 He did have a proximal diverting loop ileostomy performed at that time with distal colon anastomosis.? Pathology regarding distal sigmoid colon revealed diverticulitis with associated peridiverticular abscess with serosal fibrosis.? However, the patient did develop anastomotic leak and had return to the operating room on postoperative day #2 at which time he was found to have appreciable feculent peritonitis and he underwent thorough washout with creation of end colostomy in addition to his loop ileostomy.? He had prolonged convalescence following that and ultimately was discharged on 01/12/2022 [facility].? Patient did develop an intra-abdominal abscess after discharge which required drainage at [facility].? He has been followed in the office regularly.? He once again had some increasing tenderness in his midline wound with spontaneous drainage of purulent material.? Work-up for fistula has been negative. Operative findings:: Subcutaneous abdominal wound abscess Operative note:: Patient was taken to the operating room. He given preoperative intravenous antibiotics. The operating room was placed in supine position. General anesthesia was induced via LMA. The lower wound had opened significantly since he had been seen in the office several days prior. This was probed and there was some communicating tract superiorly to the previously draining, now healed, wound. The overlying skin and subcutaneous tissues were incised with electrocautery. Underlying fascia was intact. There was some inflamed granula tion tissue. Cultures were obtained. Visible sutures were removed. Once again, underlying fascia was intact. Small curette was used to debride the somewhat purulent granulation tissue. Wound was irrigated. Hemostasis was achieved with limited use of electrocautery. Local anesthetic was infiltrated. Wound was packed with dry gauze. Clean dry sterile dressing was applied. Condition: stable Disposition: PACU Complications:: None immediate
--- NOTE | 2022-09-03 08:00 | EXP.ANES.I ---
[facility] Anesthesia Record Part I Anesthesia Record I Intake, IV Amount: 1,200 Estimated blood loss (mL): 5 Urine output (mL): 0 Blood Products used (#): none Blood Pressure: 144/92 SaO2: 98 Pulse Rate: 69 Respiratory Rate: 16 Temperature: 97.8 F Patient is:: Drowsy and Stable Stable to PACU at:: 08:00
--- NOTE | 2022-09-03 09:34 | P.PNANES_ITS ---
[facility] Anesthesia Record Part II Anesthesia Record Part II Discharge Time: 08:20 Destination: Surgical Day Care (OP Surgery) PACU nurse assessment reviewed?: Yes Patient Condition:: Good Anesthesia Complications:: None Swallowing reflex intact?: Yes Cyanosis?: No Blood Pressure: 147/95 Pulse Rate: 71 Temperature: 98.2 F Mental Status: Alert & Oriented Pain level:: 0 Nausea and/or vomitting:: None Intake, IV Amount: 0
== END 2022-09-03 08:55 | disposition home or self-care (01) ==
PROVIDERS: PCP Family Medicine; Visit Provider Surgery
PROC: (CPT 11005; principal; 2022-09-03 07:30)
DX: L02.211 Cutaneous abscess of abdominal wall (principal); F17.210 Nicotine dependence, cigarettes, uncomplicated
CPT/HCPCS: 11005; 87070; 87075; 87077; 87186; 87205; 96374; J2405

== ENCOUNTER → 2022-09-26 08:17 | Outpatient (CLI) | payer OTHER, SELFPAY ==
--- NOTE | 2022-09-26 08:17 | CT_ITS ---
FINAL REPORT TECHNIQUE: Axial CT images of the abdomen and pelvis were obtained after the administration of oral and iv contrast. Coronal reformatted images were also obtained and reviewed.This study was performed with techniques to keep radiation doses as low as reasonably achievable (ALARA). Individualized dose reduction techniques using automated exposure control or adjustment of mA and/or kV according to the patient's size were employed. CLINICAL HISTORY: abdominal pain, recurrent infections since colon and ileum sx, oral contrast at 6:30 COMPARISON: 07/27/2022 FINDINGS: CT OF THE ABDOMEN AND PELVIS WITH CONTRAST Abdomen: There is mild bibasilar atelectasis or scarring. The heart is normal in size. The liver has an unremarkable appearance, without evidence of mass or biliary ductal dilatation. There is mild nonspecific gallbladder wall thickening. The spleen is unremarkable. No adrenal mass is present. The pancreas has an unremarkable appearance. There are bilateral nonobstructing renal stones measuring up to 9 mm on the right and 11 mm on the left. The renal stones have partially improved from prior. There is a right renal cyst measuring 6.3 cm with another cyst in the upper pole of the right kidney measuring 1.8 cm. The aorta is normal in caliber. There are multiple mildly enlarged gastrohepatic ligament nodes, reactive or neoplastic. Bilateral abdominal ostomies are again noted. There are several soft tissue nodules in the right abdomen of uncertain etiology. The nodule on image 58 measures 14 mm, with 16 mm. It is uncertain if these represent lymph nodes or other soft tissue nodules. Pelvis: The appendix is normal. A posterior bladder calcification versus bladder stone is stable. There is no evidence of bowel obstruction. There is descending and sigmoid diverticulosis. Magan's pouch is noted in the pelvis. An anterior pelvic wall deformity is noted which is new. No new fluid collections are seen to suggest abscess. IMPRESSION: Partially improved nephrolithiasis. New anterior pelvic wall deformity. Persistent right abdomen soft tissue nodules of uncertain etiology, could represent lymph nodes or other nodules. Stable nonspecific gastrohepatic lymphadenopathy, reactive or possibly neoplastic. Reviewed, Interpreted and Dictated by Arsenio Garcias III, MD Transcribed by Leigh Gilbert Authenticated and [facility]
== END ==
PROVIDERS: PCP Family Medicine; Visit Provider Surgery
DX: R10.9 Unspecified abdominal pain (principal); Z93.2 Ileostomy status
CPT/HCPCS: 74177; Q9967

== ENCOUNTER 2022-09-26 10:30 | Outpatient (RCR) | payer OTHER, SELFPAY | END 2022-09-26 10:35 | disposition home or self-care (01) | LOC: PT 10:30 | PROVIDERS: PCP Family Medicine; Visit Provider Family Medicine | DX: T81.40XA Infection following a procedure, unspecified, initial encounter (principal); L02.211 Cutaneous abscess of abdominal wall | CPT/HCPCS: 97163; 97597 ==

== ENCOUNTER → 2022-10-31 13:08 | Outpatient (CLI) | payer OTHER, SELFPAY ==
[2022-10-31 13:11] LABS: Campylobacter Not Detected (NotDetected)
[2022-10-31 20:56] LABS: Adenovirus F 40/41, stool Not Detected (NotDetected); Astrovirus Not Detected (NotDetected); Cryptosporidium Not Detected (NotDetected); Cyclospora Cayetanesis Not Detected (NotDetected); Entamoeba histolytica Not Detected (NotDetected); Enteroaggregative E coli Not Detected (NotDetected); Enteropathogenic E coli Not Detected (NotDetected); Enterotoxigenic E coli Not Detected (NotDetected); Giardia lamblia Not Detected (NotDetected); Norovirus Not Detected (NotDetected); Plesimonas Shigalloides, PCR Not Detected (NotDetected); Rotavirus A Not Detected (NotDetected); Salmonella, PCR Not Detected (NotDetected); Sapovirus Not Detected (NotDetected); Shiga-like toxin E coli Not Detected (NotDetected); Shigella Enterovasive E coli Not Detected (NotDetected); Vibrio Cholerae Not Detected (NotDetected); Vibrio, PCR Not Detected (NotDetected); Yersinia Entercolitica, PCR Not Detected (NotDetected)
[2022-10-31 20:59] LABS: Clostridium Difficile A/B, PCR Detected (NotDetected)
== END ==
PROVIDERS: PCP Family Medicine; Visit Provider Surgery
DX: L02.211 Cutaneous abscess of abdominal wall (principal); A04.72 Enterocolitis due to Clostridium difficile, not specified as recurrent
CPT/HCPCS: 87506

== ENCOUNTER 2022-11-11 14:50 | Emergency (ER) | payer OTHER, SELFPAY ==
[2022-11-11] VITALS (7 sets, daily range): BP systolic 86–117; BP diastolic 54–83; PULSE 56–78; RESP 16–20; TEMP 36.7; O2SAT 98–100; BMI 22.3
--- NOTE | 2022-11-11 14:58 | HMH.EDGENADL ---
Discharge Plan Disposition Patient Disposition: Home, Self-Care Prescriptions Prescriptions: New cyclobenzaprine 5 mg tablet 5 mg PO TID PRN (Reason: muscle spasm) 5 Days Qty: 15 0RF Referrals Follow up/Referrals: Brandy Ramírez [Primary Care Provider] - See instructions Activity Restrictions/Add. Instructions Additional Instructions/Restrictions: Your back pain today is most likely from musculoskeletal pain and a CAT scan was unremarkable. However you have ongoing metabolic abnormalities and worsening of your kidney disease likely secondary to NSAID use and ongoing fluid losses from your C. difficile colitis. This is by definition a severe C. difficile infection given your acute kidney injury. You were offered admission and the offer still stands if you change your mind upon being discharged. Please have your creatinine rechecked on Saturday as you aggressively hydrate orally return to the emergency department for admission at any point during this process if you feel that you are getting worse. Also it may be appropriate since you are not improving to discuss with your primary care physician and/or your surgeon whether not you should add or change her antibiotic to fidaxomicin and/or add adjunctive bezlotoxumab. Fecal transplantation is a last line treatment option but needs to be discussed as well. This is typically not done until subsequent and recurrent C. difficile infections are present. Clinical Impressions Clinical Impression: Acute lumbosacral myofascial strain, ARIELLA (acute kidney injury), C. difficile diarrhea Instructions Patient Instructions: DI for Low Back Pain Discharge ED Provider: Jaylene Johnston General Adult HPI General Chief complaint: Back Pain/Injury Stated complaint: Lower back pain, nausea Time Seen by Provider: 11/11/22 14:58 History of Present Illness HPI narrative: Patient is a 52-year-old male with an extensive intra-abdominal history with multiple abdominal surgeries follow-up Dr. Marshall including colostomy ileostomy and intra-abdominal abscess surgeries presenting today with left lower back pain. States that he has no new different or increasing abdominal pain and is out of proportion what he normally has. He is chronically followed for C. difficile currently and his ostomy output is no different than it has been he was recently on oral vancomycin. He states that he has not had any strenuous or exertional activities to have strained his lower back he has a known history of kidney stones and states he has not had any changes in urine output including urinary urgency frequency or dysuria additionally has not had any hematuria. Patient denies any fevers or chills. No urinary incontinence or urinary retention no lower extremity weakness or saddle anesthesia. Related Data Previous Rx's Medication Instructions Recorded cyclobenzaprine 5 mg tablet 5 mg PO TID PRN muscle spasm 5 11/11/22 days #15 tabs Allergies Allergy/AdvReac Type Severity Reaction Status Date / Time aspirin Allergy Verified 10/30/22 10:24 codeine Allergy Verified 10/30/22 10:24 [facility] Disclaimer: The information contained in this section may have been updated after the patient was seen, as this information can be updated by other users. Medical History ARIELLA (acute kidney injury) Colostomy in place Dehisced intestinal anastomosis Depressed Dyspnea on exertion Dyspnea on exertion GERD (gastroesophageal reflux disease) History of pleural effusion Hypercalcemia Hyperlipemia Hypertension Ileostomy in place Would benefit from convex appliance, appropriate size. Intra-abdominal abscess post-procedure Mass of colon Parathyroid adenoma Physical deconditioning Pleural effusion Smoking greater than 30 pack years Thyroid disorder Thyroid Nodule Vasectomy planned Surgical History Histor
--- NOTE | 2022-11-11 15:14 | CT_ITS ---
PROCEDURE INFORMATION: Exam: CT Abdomen And Pelvis Without Contrast Exam date and time: 11/11/2022 3:31 PM Age: 52 years old Clinical indication: Abdominal pain; Flank; Left; Patient HX: PT has colostomy from previous bowel surgery; Additional info: Left flank pain TECHNIQUE: Imaging protocol: Computed tomography of the abdomen and pelvis without contrast. Radiation optimization: All CT scans at this facility use at least one of these dose optimization techniques: automated exposure control; mA and/or kV adjustment per patient size (includes targeted exams where dose is matched to clinical indication); or iterative reconstruction. REPORTING DATA: Count of CT and Cardiac NM exams in prior 12 months: This patient has received 10 known CTs and 0 known cardiac nuclear medicine studies in the 12 months prior to the current study. COMPARISON: CT ABDOMEN PELVIS W CON 09/26/2022 8:39 AM FINDINGS: Coronary arteries: Coronary artery calcifications. Liver: Normal. No mass. Gallbladder and bile ducts: Normal. No calcified stones. No ductal dilation. Pancreas: Normal. No ductal dilation. Spleen: Normal. No splenomegaly. Adrenal glands: Normal. No mass. Kidneys and ureters: Nonobstructive renal stones bilaterally. No hydronephrosis or ureteral stone. Right renal cysts, largest 6 cm. Stomach and bowel: Sigmoidectomy. Magan's pouch and bilateral stomas appear unremarkable. Diverticulosis. No bowel obstruction or abscess. Appendix: No evidence of appendicitis. Intraperitoneal space: Unremarkable. No free air. No significant fluid collection. Vasculature: Moderate atherosclerosis. Lymph nodes: Unremarkable. No enlarged lymph nodes. Urinary bladder: Incomplete distension versus underlying inflammation/infection, or other infiltrative pathology, with thickened appearance to the santiago of the urinary bladder. Reproductive: Unremarkable as visualized. Bones/joints: No acute fracture. Soft tissues: Unremarkable. Other findings: No other acute disease seen on nonenhanced study. As Above. . IMPRESSION: 1. Nonobstructive renal stones bilaterally. No hydronephrosis or ureteral stone. 2. No bowel obstruction or abscess. 3. Incomplete distension versus underlying inflammation/infection, or other infiltrative pathology, with thickened appearance to the santiago of the urinary bladder. 4. No other acute disease seen on nonenhanced study. As Above. COMMENTS: Consistent with the [employer]'s Incidental Findings Committee white paper (J Am Vivien Radiol 2018): Any incidental renal lesion less than 1 cm or classified as too small to characterize, or any incidental cystic renal lesion characterized as simple-appearing, is likely benign. No follow-up imaging is recommended for these lesions per consensus recommendations based on imaging criteria.
--- NOTE | 2022-11-11 15:29 | PC.NURSE ---
pt to CT via wheelchair
[2022-11-11 15:40] LABS: Basophils # 0.1 K/mm3 (0-0.2); Basophils % 0.6 % (0.1-2.0); Eosinophils # 0.4 K/mm3 (0.0-0.4); Eosinophils % 3.7 % (0.1-12.0); Hematocrit 46.8 % (42.0-52.0); Hemoglobin 14.7 g/dL (14.1-18.0); Lymphocytes # 3.3 K/mm3 (0.7-4.5); Lymphocytes % 34.7 % (10-50); Mean Corpuscular HGB Conc 31.4 g/dL (31.8-35.4); Mean Corpuscular Volume 92.4 fl (80-94); Mean Platelet Volume 8.7 fl (7.4-10.4); Monocytes # 0.8 K/mm3 (0.1-1.0); Monocytes % 7.8 % (1.7-9.3); Neutrophils # 5.1 K/mm3 (1.8-7.8); Neutrophils % 53.2 % (37.0-80.0); Platelet Count 249 K/mm3 (142-424); Red Blood Count 5.06 M/mm3 (4.60-6.20); Red Cell Distribution Width 15.8 % (11.5-17.5); White Blood Count 9.6 K/mm3 (4.8-10.8)
[2022-11-11 15:44] LABS: Alanine Aminotransferase 31 U/L (12-78); Albumin Level 4.3 g/dl (3.5-5.0); Albumin/Globulin Ratio 1.2 (1.1-1.8); Alkaline Phosphatase 163 U/L (38-126); Anion Gap 16.1 mEq/L (5-15); Aspartate Amino Transferase 32 U/L (17-59); Bilirubin,Total 0.4 mg/dl (0.2-1.3); Blood Urea Nitrogen 29 mg/dl (9-20); Calcium 10.5 mg/dl (8.4-10.2); Carbon Dioxide 17 mmol/L (22.0-30.0); Chloride 109 mmol/L (98-107); Creatinine Clearance Estimated 41 mL/min (50-200); Estimated Glomerular Filt Rate 33 ml/min (>60); GFR (African American) 40 ML/MIN (>60); Globulin 3.7 g/dL (1.3-3.2); Glucose 68 mg/dl (74-100); Lactic Acid 0.8 mmol/L (0.7-2.1); Lipase 151 U/L (23-300); Potassium 5.1 mmoL/L (3.5-5.1); Sodium 137 mmol/L (136-145)
== END 2022-11-11 16:48 | disposition home or self-care (01) ==
PROVIDERS: Emergency Provider Student in an Organized Health Care Education/Training Program; PCP Family Medicine
DX: S39.012A Strain of muscle, fascia and tendon of lower back, initial encounter (principal); N17.9 Acute kidney failure, unspecified; A04.71 Enterocolitis due to Clostridium difficile, recurrent; Z93.3 Colostomy status; F17.210 Nicotine dependence, cigarettes, uncomplicated
CPT/HCPCS: 74176; 80053; 83605; 83690; 85025; 96361; 96374; 96375; 99285; J2405

== ENCOUNTER → 2022-11-13 09:19 | Outpatient (CLI) | payer OTHER, SELFPAY ==
[2022-11-13 09:50] LABS: Chloride 111 mmol/L (98-107); Potassium 5.1 mmoL/L (3.5-5.1); Sodium 139 mmol/L (136-145)
[2022-11-13 09:53] LABS: Anion Gap 14.1 mEq/L (5-15); Blood Urea Nitrogen 24 mg/dl (9-20); Calcium 10.9 mg/dl (8.4-10.2); Carbon Dioxide 19 mmol/L (22.0-30.0); Estimated Glomerular Filt Rate 42 ml/min (>60); GFR (African American) 51 ML/MIN (>60); Glucose 85 mg/dl (74-100)
== END ==
PROVIDERS: PCP Family Medicine; Visit Provider Ophthalmology
DX: I10 Essential (primary) hypertension (principal)
CPT/HCPCS: 36415; 80048

== ENCOUNTER 2022-11-22 22:48 | Emergency (ER) | payer OTHER, SELFPAY ==
[2022-11-22 22:52] VITALS: BP 155/103; PULSE 86; RESP 16; TEMP 37.1; O2SAT 97; BMI 26.4
[2022-11-22 23:00] VITALS: BP 129/94; PULSE 78; RESP 20; O2SAT 98
--- NOTE | 2022-11-22 23:21 | HMH.EDWNDL ---
Discharge Plan Disposition Patient Disposition: Home, Self-Care Prescriptions Prescriptions: No Action ciprofloxacin HCl 500 mg tablet 500 mg PO BID 10 Days Qty: 20 0RF cyclobenzaprine 5 mg tablet 5 mg PO TID PRN (Reason: muscle spasm) 5 Days Qty: 15 0RF Clinical Impressions Clinical Impression: Ileostomy in place, Cellulitis Instructions Patient Instructions: DI for Wound Infection Discharge ED Provider: Peyton (ED)David Wound/Laceration HPI General Chief Complaint: Wound/Laceration Stated Complaint: Open wound Time Seen by Provider: 11/22/22 23:00 Mode of Arrival: Ambulatory Source of Information: Patient, Spouse and Medical Record Limitations: No Limitations History of Present Illness HPI narrative: sudden drainage from site abd - has had prev surg - no fever or other c/o Onset (ago): hour(s) Location: abdomen Place: home Related Data Previous Rx's Medication Instructions Recorded cyclobenzaprine 5 mg tablet 5 mg PO TID PRN muscle spasm 5 11/11/22 days #15 tabs ciprofloxacin HCl 500 mg tablet 500 mg PO BID 10 days #20 tabs 11/20/22 Allergies Allergy/AdvReac Type Severity Reaction Status Date / Time aspirin Allergy Verified 11/20/22 13:03 codeine Allergy Verified 11/20/22 13:03 [facility] Disclaimer: The information contained in this section may have been updated after the patient was seen, as this information can be updated by other users. Medical History ARIELLA (acute kidney injury) Colostomy in place Dehisced intestinal anastomosis Depressed Dyspnea on exertion Dyspnea on exertion GERD (gastroesophageal reflux disease) History of pleural effusion Hypercalcemia Hyperlipemia Hypertension Ileostomy in place Would benefit from convex appliance, appropriate size. Intra-abdominal abscess post-procedure Mass of colon Parathyroid adenoma Physical deconditioning Pleural effusion Smoking greater than 30 pack years Thyroid disorder Thyroid Nodule Vasectomy planned Surgical History History of colonoscopy History of partial thyroidectomy History of vasectomy Hx of parathyroidectomy removed 2 Status post partial colectomy Family History Other No significant family history Social History Smoking Status: Current every day smoker tobacco type: cigarettes packs per day: 1 years smoked: 40 alcohol intake: former substance use type: former substance user and crack/cocaine current occupational status: unemployed Travel in the last 8 weeks: None household members: none housing: house lives independently: Yes marital status: education level: college service: Yes assisted: No current occupational exposures/hazards: No caffeine: Yes special laith needs: No agree to transfusion: No do you feel safe at home: Yes victim of physical abuse: No victim of emotional abuse: No victim of sexual abuse: No would you like helpful sources: No ROS Obtained: Yes All systems reviewed & no additional complaints except as documented Physical Exam General General appearance: alert Head Head exam: normocephalic Eye Eye exam: Present PERRL and EOMI ENT ENT exam: Present mucous membranes moist Neck Neck exam: Present trachea midline Respiratory Respiratory exam: Absent respiratory distress Cardiovascular Cardiovascular exam: Present regular rate Abdominal Exam Abdominal exam: Present soft and other (draining from pocket -superficial area abd - had ileostomy) Extremities Exam Extremities exam: Present full ROM Neurological Exam Neurological exam: Present alert, oriented X3 and CN II-XII intact Skin Skin exam: Present other (no def abscess); Absent rash Medical Decision
[2022-11-22 23:30] VITALS: BP 136/89; PULSE 70; RESP 18; O2SAT 97
[2022-11-23] VITALS: BP 130/95; PULSE 68; RESP 18; O2SAT 99
[2022-11-23 00:30] VITALS: BP 122/82; PULSE 72; RESP 20; O2SAT 96
[2022-11-23 01:01] VITALS: BP 132/83; PULSE 66; RESP 18; O2SAT 99
[2022-11-23 01:30] VITALS: BP 137/85; PULSE 64; RESP 16; O2SAT 98
--- NOTE | 2022-11-23 02:30 | CT_ITS ---
PROCEDURE INFORMATION: Exam: CT Abdomen And Pelvis Without Contrast Exam date and time: 11/23/2022 2:35 AM Age: 52 years old Clinical indication: Other: Open wound; Abdominal pain; Prior surgery; Surgery date: 1-6 months; Surgery type: PT states debridement in August. TECHNIQUE: Imaging protocol: Computed tomography of the abdomen and pelvis without contrast. Radiation optimization: All CT scans at this facility use at least one of these dose optimization techniques: automated exposure control; mA and/or kV adjustment per patient size (includes targeted exams where dose is matched to clinical indication); or iterative reconstruction. REPORTING DATA: Count of CT and Cardiac NM exams in prior 12 months: This patient has received 0 known CTs and 0 known cardiac nuclear medicine studies in the 12 months prior to the current study. COMPARISON: CR Pelvis 12/26/2021 11:11 PM FINDINGS: Lungs: Minimal bibasilar atelectasis or scarring. Coronary arteries: Mild atherosclerotic disease of the visualized right coronary artery. Liver: Normal. Gallbladder and bile ducts: Normal Pancreas: Normal. Spleen: Normal. Adrenal glands: Normal. No mass. Kidneys and ureters: Bilateral nonobstructive nephrolithiasis. Simple right renal cyst, for which no further evaluation necessary. Stomach and bowel: Left lower quadrant colostomy. Right lower quadrant ileostomy. Appendix: Appendix normal. Intraperitoneal space: Unremarkable. No free air. No significant fluid collection. Vasculature: Phleboliths within the pelvis. Lymph nodes: Unremarkable. No enlarged lymph nodes. Urinary bladder: Unremarkable as visualized. Reproductive: Unremarkable as visualized. Bones/joints: No acute abnormality. Soft tissues: Midline ventral laparotomy wound, with small gas and fluid component in the superior aspect of the superficial soft tissues (series 3, image 66), possibly infection. Slightly heterogeneous tubular structure within the peritoneum, extending from the midline laparotomy wound to the anterior peritoneum adjacent to the lateral margin of the right rectus muscle (series 3, images 36-65), possibly area of scarring/expected surgical changes, although not definitively characterized. IMPRESSION: 1. Midline ventral laparotomy wound, with small gas and fluid component in the superior aspect of the superficial soft tissues (series 3, image 66), possibly infection. 2. Slightly heterogeneous tubular structure within the peritoneum, extending from the midline laparotomy wound to the anterior peritoneum adjacent to the lateral margin of the right rectus muscle (series 3, images 36-65), possibly area of scarring/expected surgical changes, although not definitively characterized.
[2022-11-23 06:12] LABS: Alanine Aminotransferase 51 U/L (12-78); Albumin Level 4.4 g/dl (3.5-5.0); Albumin/Globulin Ratio 1.1 (1.1-1.8); Alkaline Phosphatase 184 U/L (38-126); Anion Gap 13.5 mEq/L (5-15); Aspartate Amino Transferase 54 U/L (17-59); Bilirubin,Total 0.4 mg/dl (0.2-1.3); Blood Urea Nitrogen 20 mg/dl (9-20); Calcium 10.9 mg/dl (8.4-10.2); Carbon Dioxide 22 mmol/L (22.0-30.0); Chloride 107 mmol/L (98-107); Creatinine Clearance Estimated 69 mL/min (50-200); Estimated Glomerular Filt Rate 49 ml/min (>60); GFR (African American) 59 ML/MIN (>60); Globulin 4.1 g/dL (1.3-3.2); Glucose 97 mg/dl (74-100); Potassium 4.5 mmoL/L (3.5-5.1); Sodium 138 mmol/L (136-145); Total Protein,Serum 8.5 g/dl (6.3-8.2)
[2022-11-23 06:16] VITALS: BP 132/81; PULSE 80; RESP 18; TEMP 36.9
--- NOTE | 2022-11-23 06:31 | PC.NURSE ---
paged dr napier @ this time
[2022-11-23 06:32] LABS: Hematocrit 48.5 % (42.0-52.0); Hemoglobin 15.4 g/dL (14.1-18.0); Lymphocytes % 33.2 % (10-50); Mean Corpuscular HGB Conc 31.7 g/dL (31.8-35.4); Mean Corpuscular Hemoglobin 29.8 pg (27.0-31.2); Mean Platelet Volume 8.9 fl (7.4-10.4); Neutrophils % 52.2 % (37.0-80.0); Platelet Count 249 K/mm3 (142-424); Red Blood Count 5.16 M/mm3 (4.60-6.20); Red Cell Distribution Width 15.2 % (11.5-17.5); White Blood Count 9.4 K/mm3 (4.8-10.8)
--- NOTE | 2022-11-23 06:32 | PC.NURSE ---
santiago on phone with dr napier
[2022-11-23 06:33] LABS: Basophils # 0.1 K/mm3 (0-0.2); Basophils % 0.6 % (0.1-2.0); Eosinophils # 0.6 K/mm3 (0.0-0.4); Eosinophils % 6.3 % (0.1-12.0); Lymphocytes # 3.1 K/mm3 (0.7-4.5); Monocytes # 0.6 K/mm3 (0.1-1.0); Monocytes % 6.2 % (1.7-9.3); Neutrophils # 4.9 K/mm3 (1.8-7.8)
--- NOTE | 2022-11-23 07:32 | PC.NURSE ---
Peripheral IV removed prior to D/C. Patient ambulated out of ED in no apparent distress
== END 2022-11-23 07:31 | disposition home or self-care (01) ==
PROVIDERS: Emergency Provider Emergency Medicine; PCP Family Medicine
DX: L03.90 Cellulitis, unspecified (principal); K94.19 Other complications of enterostomy; K21.9 Gastro-esophageal reflux disease without esophagitis; I10 Essential (primary) hypertension; E78.5 Hyperlipidemia, unspecified; F17.210 Nicotine dependence, cigarettes, uncomplicated
CPT/HCPCS: 74176; 80053; 85025; 87040; 87070; 87077; 87186; 87205; 96361; 96374; 96375; 96376; 99284; J0696

== ENCOUNTER → 2022-11-29 11:50 | Outpatient (CLI) | payer OTHER, SELFPAY ==
[2022-11-29 11:53] LABS: Adenovirus F 40/41, stool Not Detected (NotDetected); Astrovirus Not Detected (NotDetected); Campylobacter Not Detected (NotDetected); Clostridium Difficile A/B, PCR Not Detected (NotDetected); Cryptosporidium Not Detected (NotDetected); Cyclospora Cayetanesis Not Detected (NotDetected); Entamoeba histolytica Not Detected (NotDetected); Enteroaggregative E coli Not Detected (NotDetected); Enteropathogenic E coli Not Detected (NotDetected); Enterotoxigenic E coli Not Detected (NotDetected); Giardia lamblia Not Detected (NotDetected); Norovirus Not Detected (NotDetected); Plesimonas Shigalloides, PCR Not Detected (NotDetected); Rotavirus A Not Detected (NotDetected); Salmonella, PCR Not Detected (NotDetected); Sapovirus Not Detected (NotDetected); Shiga-like toxin E coli Not Detected (NotDetected); Shigella Enterovasive E coli Not Detected (NotDetected); Vibrio Cholerae Not Detected (NotDetected); Vibrio, PCR Not Detected (NotDetected); Yersinia Entercolitica, PCR Not Detected (NotDetected)
== END ==
PROVIDERS: PCP Family Medicine; Visit Provider Surgery
DX: Z86.19 Personal history of other infectious and parasitic diseases (principal)
CPT/HCPCS: 87506

== ENCOUNTER 2022-12-24 07:16 | Day surgery (SDC) | payer OTHER, SELFPAY ==
[2022-12-24] VITALS (10 sets, daily range): BP systolic 111–138; BP diastolic 63–98; PULSE 59–78; RESP 16–18; TEMP 36.1–36.4; O2SAT 98–100; BMI 25.5
--- NOTE | 2022-12-24 09:04 | XR_ITS ---
FINAL REPORT CLINICAL HISTORY: STOMA INJECTION, fluoro time 41sec FINDINGS: FLUOROSCOPY LESS THAN 1 HOUR HISTORY: Fluoroscopy guided injection. FINDINGS: Fluoroscopic guidance was provided for stoma injection. A single spot film was obtained. 0.6 minutes of fluoroscopy time were used. IMPRESSION: As above. Reviewed, Interpreted and Dictated by Arsenio Garcias III, MD Transcribed by Leigh Gilbert Authenticated and [facility]
--- NOTE | 2022-12-24 09:14 | EXP.OP.NOTE ---
Date of procedure: 12/24/22 Pre-op Diagnosis:: Defunctionalized unprepped colon Post-op Diagnosis:: Same Procedure performed:: Cannulation of ileostomy with 16 Armenian coud? catheter with enteric injection of Gastroview for confirmation Surgeon:: Arsenio Marshall MD Anesthesia: none Estimated blood loss (mL): 0 Operative findings:: Seemingly normal ileum and cecum Operative note:: Patient was taken to the endoscopy procedure room. He was positioned in supine position on the fluoroscopy table. Loop ileostomy appliance was removed. The afferent limb of his loop ileostomy was cannulated with 16 Armenian coud? type catheter. This was advanced. Fluoroscopy was used to visualize advancement of catheter. Limited amount of Gastroview was injected through the catheter. Ultimately it was visualized to be in the cecum. At this time additional Gastroview was injected to confirm appropriate position without reflux into the distal ileum. Balloon was inflated. Ileostomy bag was reattached with the catheter exiting the bag through a small incision to allow for administration of bowel prep. Colostomy appliance was applied to his defunctionalized colostomy on the left abdomen. Patient tolerated procedure well with no complications. Condition: stable Disposition: other (Postop) Complications:: None immediately apparent
--- NOTE | 2022-12-24 14:44 | HMH.PROCNOTE ---
[facility] Procedure Note Date: 12/24/22 Time: 14:44 Procedure Note:: Since catheter has been placed earlier today there have been intermittent episodes where there was significant reflux of prep from around the catheter at the ileostomy site. This could be transiently relieved with manipulation of the catheter which I performed at the bedside. However, this was no longer successful and colostomy output had ceased. Therefore plan was made for repeat fluoroscopy to confirm position of the catheter. Using C arm fluoroscopy catheter was observed to be likely near the ileocecal valve. Gastroview was injected and there was some reflux. The balloon was deflated and under fluoroscopy the catheter would not advance well into the colon. Therefore the coud? catheter was removed. An 18 Chinese balloon gastrostomy tube was then inserted through the afferent limb of the loop ileostomy. It was inserted a generous distance. Gastroview was injected and it was shown to be in a good position in the right colon. Balloon was then inflated and the gastrostomy tube was withdrawn until there was traction. Fluoroscopy was then once again used with injection of Gastroview which showed good position. There was colostomy output during the procedure.
--- NOTE | 2022-12-24 14:45 | XR_ITS ---
FINAL REPORT CLINICAL HISTORY: STOMA INJECTION, c-arm used, fluoro time 141 seconds FINDINGS: Fluoroscopy 3 spot films were obtained for stoma injection utilizing 141 seconds of fluoro time. IMPRESSION: Fluoroscopy as above. Reviewed, Interpreted and Dictated by Arsenio Garcias III, MD Transcribed by Minal Loving Authenticated and . [facility]
== END 2022-12-24 16:20 | disposition home or self-care (01) ==
PROVIDERS: PCP Family Medicine; Visit Provider Surgery
DX: Z93.2 Ileostomy status (principal)
CPT/HCPCS: 74018; 76000

== ENCOUNTER 2022-12-25 07:19 | Observation (INO) | payer OTHER, SELFPAY ==
[2022-12-25] VITALS (20 sets, daily range): BP systolic 78–98; BP diastolic 46–67; PULSE 53–118; RESP 16–18; TEMP 36.6–36.7; O2SAT 96–100; BMI 23.6; BMI 25.8
--- NOTE | 2022-12-25 07:24 | PC.NURSE ---
Family at BS; pt hooked to monitor and given a warm blanket for comfort. Veronica RN at BS for triage. Call light within reach
[2022-12-25 07:45] LABS: Basophils # 0.1 K/mm3 (0-0.2); Basophils % 0.4 % (0.1-2.0); Eosinophils # 0.3 K/mm3 (0.0-0.4); Eosinophils % 2.6 % (0.1-12.0); Hematocrit 46.9 % (42.0-52.0); Lymphocytes # 3.8 K/mm3 (0.7-4.5); Lymphocytes % 30.2 % (10-50); Mean Corpuscular HGB Conc 32.1 g/dL (31.8-35.4); Mean Corpuscular Volume 93.4 fl (80-94); Monocytes # 0.9 K/mm3 (0.1-1.0); Monocytes % 6.8 % (1.7-9.3); Neutrophils # 7.6 K/mm3 (1.8-7.8); Platelet Count 249 K/mm3 (142-424); Red Blood Count 5.02 M/mm3 (4.60-6.20); Red Cell Distribution Width 14.5 % (11.5-17.5); White Blood Count 12.7 K/mm3 (4.8-10.8)
[2022-12-25 07:54] LABS: Alanine Aminotransferase 28 U/L (12-78); Albumin Level 4.4 g/dl (3.5-5.0); Albumin/Globulin Ratio 1.3 (1.1-1.8); Alkaline Phosphatase 212 U/L (38-126); Anion Gap 14.3 mEq/L (5-15); Aspartate Amino Transferase 30 U/L (17-59); Bilirubin,Total 0.7 mg/dl (0.2-1.3); Blood Urea Nitrogen 37 mg/dl (9-20); Calcium 11.1 mg/dl (8.4-10.2); Carbon Dioxide 17 mmol/L (22.0-30.0); Chloride 111 mmol/L (98-107); Creatinine Clearance Estimated 33 mL/min (50-200); Estimated Glomerular Filt Rate 24 ml/min (>60); GFR (African American) 29 ML/MIN (>60); Globulin 3.5 g/dL (1.3-3.2); Glucose 104 mg/dl (74-100); Potassium 4.3 mmoL/L (3.5-5.1); Sodium 138 mmol/L (136-145); Total Protein,Serum 7.9 g/dl (6.3-8.2)
--- NOTE | 2022-12-25 08:12 | HMH.EDGENADL ---
Discharge Plan Disposition Patient Disposition: Admitted Chief Complaint: Headache Prescriptions Prescriptions: No Action cyclobenzaprine 5 mg tablet 5 mg PO TID PRN (Reason: muscle spasm) 5 Days Qty: 15 0RF lisinopril 10 mg Tablet 10 mg PO DAILY ondansetron HCl 4 mg tablet 4 mg PO Q8H Referrals Follow up/Referrals: Brandy Ramírez [Primary Care Provider] - See instructions Clinical Impressions Clinical Impression: ARIELLA (acute kidney injury), Acute dehydration, Acute hypotension Discharge ED Provider: Jaylene Johnston General Adult HPI General Chief complaint: Headache Stated complaint: Possible dehydration, weakness, bodyaches, low BP Time Seen by Provider: 12/25/22 08:04 Mode of Arrival: Ambulatory Source of Information: Patient Limitations: No Limitations Description of Symptoms (Recalled from ER Triage Doc. by RN): pt to the ED with fatigue, headache and bodyaches since this morning. pt reports he had a colon flush with go lightly in the OR with Dr. Marshall yesterday to clear out stool burdens. pt reports he felt good yesterday directly following his procedure but woke up with morning with presenting symptoms. pt denies any chest pain, SOB or fevers at home. History of Present Illness HPI narrative: Patient is a 52-year-old male followed by Dr. Marshall who has had multiple intra-abdominal abscesses and surgeries. Patient yesterday was in the operating room with Dr. Rivas for a GoLytely bowel flush for 10 hours according to his family member and subsequently has developed significant headache lightheadedness tender. He and his significant other in the room states that he did not get any IV fluids and they believe that he is dehydrated. He denies any pain fevers or chills. Related Data Home Medications Medication Instructions Recorded Confirmed lisinopril 10 mg tablet 10 mg PO DAILY bp 12/24/22 12/24/22 ondansetron HCl 4 mg tablet 4 mg PO Q8H Nausea 12/24/22 12/24/22 Previous Rx's Medication Instructions Recorded cyclobenzaprine 5 mg tablet 5 mg PO TID PRN muscle spasm 5 11/11/22 days #15 tabs Allergies Allergy/AdvReac Type Severity Reaction Status Date / Time aspirin Allergy Verified 12/24/22 08:11 codeine Allergy Verified 12/24/22 08:11 [facility] Disclaimer: The information contained in this section may have been updated after the patient was seen, as this information can be updated by other users. Medical History ARIELLA (acute kidney injury) Colostomy in place Dehisced intestinal anastomosis Depressed Dyspnea on exertion Dyspnea on exertion GERD (gastroesophageal reflux disease) History of pleural effusion Hypercalcemia Hyperlipemia Hypertension Ileostomy in place Would benefit from convex appliance, appropriate size. Intra-abdominal abscess post-procedure Mass of colon Parathyroid adenoma Physical deconditioning Pleural effusion Smoking greater than 30 pack years Thyroid disorder Thyroid Nodule Vasectomy planned Surgical History History of colonoscopy History of partial thyroidectomy History of vasectomy Hx of parathyroidectomy removed 2 Status post partial colectomy Family History Other No significant family history Social History (Updated 12/24/22 @ 08:09 by Panda Otto RN) Smoking Status: Current every day smoker tobacco type: cigarettes packs per day: 1 years smoked: 40 alcohol intake: never substance use type: former substance user and crack/cocaine current occupational status: unemployed Travel in the last 8 weeks: None household members: none housing: house lives independently: Yes marital status: education level: college service: Yes prison: No current occupational exposures/hazards: No caffeine: Yes
[2022-12-25 08:26] LABS: Coronavirus 19, PCR Not Detected (NotDetected); Influenza A, PCR Not Detected (NotDetected); Influenza B, PCR Not Detected (NotDetected)
[2022-12-25 08:32] LABS: Phosphorous 4.3 mg/dl (2.5-4.5)
--- NOTE | 2022-12-25 08:35 | PC.NURSE ---
MD notified of pt hypotension. MD stated he would reassess after LR bolus is done infusing.
--- NOTE | 2022-12-25 09:20 | PC.NURSE ---
MD notified of pt persistent hypertension after LR bolus completed. MD gave verbal order for another bolus of LR.
--- NOTE | 2022-12-25 09:20 | PC.NURSE ---
MD notified of pt persistent hypotension after LR bolus completed. MD gave verbal order for another bolus of LR.
--- NOTE | 2022-12-25 09:50 | PC.NURSE ---
notified care management of admission
--- NOTE | 2022-12-25 10:45 | PC.NURSE ---
attempted to call report to floor at this time
--- NOTE | 2022-12-25 10:55 | PC.NURSE ---
report called to DANIA Romano
--- NOTE | 2022-12-25 11:08 | PC.NURSE ---
accidentally charted on wrong pt
--- NOTE | 2022-12-25 11:12 | PC.NURSE ---
Rounded on patient; pt resting on ED stretcher with lights off. RR: 15 Call bonilla within reach
--- NOTE | 2022-12-25 11:15 | PC.NURSE ---
Pt taking to 2nd floo via stretcher with two techs. All belongings with patients family.
--- NOTE | 2022-12-25 12:27 | EXP.HP ---
History of Present Illness *Admission Date: 12/25/22 *Reason for visit:: generalized weakness *History of present illness: Garret Lopez is a 52 year old male with a past medical history of MRSA cellulitis, c difficile enteritis, CKD and hypertension. He presented to the ED with generalized weakness and headache. Workup in the ED revealed creatinine level of 2.8 (baseline is ~1.4-2.0) and his systolic blood pressures were in the 80-90s. Yesterday he had cannulation of his ileostomy and did not have anything to drink. After receiving 2 liters of fluids in the ED he is feeling much better and blood pressures have increased. He urinated after arriving to the floor. 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 pathology of distal sigmoid colon revealed diverticulitis with associated periventricular abscess with serosal fibrosis. The patient developed an anastomotic leak and returned to the operating room POD #2 at which time he was found to have feculent peritonitis and he underwent washout with creation of end colostomy in addition to his loop ileostomy. He developed an intra-abdominal abscess after discharge which required drainage at [facility]. He reports that he is scheduled in January for a colonoscopy in toward eventually reversing his ileostomy and colostomy. Initial vitals: BP 92/59 - P 64 - RR 17 - T 97.9 degrees F - SpO2 98% RA Initial workup: CBC with 12.7K WBCs, CMP with BUN 37, Cr 2.8 (baseline ~1.4-2.0) [facility] Disclaimer: The information contained in this section may have been updated after the patient was seen, as this information can be updated by other users. Medical History (Updated 12/25/22 @ 14:33 by Panda Willard MD) ARIELLA (acute kidney injury) Colostomy in place Dehisced intestinal anastomosis Depressed Depression Dyspnea on exertion Dyspnea on exertion GERD (gastroesophageal reflux disease) History of pleural effusion HLD (hyperlipidemia) Hypercalcemia Hyperlipemia Hypertension Ileostomy in place Insomnia Intra-abdominal abscess post-procedure Mass of colon Parathyroid adenoma Physical deconditioning Pleural effusion Smoking greater than 30 pack years Thyroid disorder Thyroid Nodule Vasectomy planned Surgical History History of colonoscopy History of partial thyroidectomy History of vasectomy Hx of parathyroidectomy Status post partial colectomy Family History Other No significant family history Social History (Updated 12/25/22 @ 11:49 by Fay Blood RN) Smoking Status: Current every day smoker tobacco type: cigarettes packs per day: 1 years smoked: 40 alcohol intake: never substance use type: former substance user and crack/cocaine current occupational status: unemployed Travel in the last 8 weeks: None household members: none housing: house lives independently: Yes marital status: education level: college service: Yes residential: No current occupational exposures/hazards: No caffeine: Yes special laith needs: No agree to transfusion: No do you feel safe at home: Yes victim of physical abuse: No victim of emotional abuse: No victim of sexual abuse: No would you like helpful sources: No Review of Systems Review of Systems Review of systems:: pertinent systems reviewed and negative unless documented below Constitutional Constitutional: Reports headache(s) and Reports weakness ENT Ears, Nose, Mouth, and Throat: Reports headache(s) *Neurologic Neurologic: Reports headache(s) and Reports weakness Meds Home Medications and Allergies Home Medications Medication Instructions Recorded Confirmed Type cyclobe
--- NOTE | 2022-12-25 14:40 | HMH.PHAINT1 ---
Pharmacy Intervention Comments: Patient's home medications reviewed and verified with patient and external pharmacy. -Tino Potter, Pharm Student
--- NOTE | 2022-12-25 20:40 | PC.NURSE ---
Trey ARPN spinner continuous notified rt manual BP of 82/67. NNO. Pt is asymptomatic, fluids remain infusing at 75ml/hr.
--- NOTE | 2022-12-25 23:19 | PC.NURSE ---
Fluid bolus LR 500mL administered per order for low BP.
[2022-12-26] VITALS: BP 85/49; PULSE 59; RESP 16; TEMP 36.7; O2SAT 96
[2022-12-26 03:36] VITALS: BP 89/50; PULSE 64; RESP 16; TEMP 36.6; O2SAT 95; BMI 26.9
[2022-12-26 05:58] LABS: Basophils % 0.3 % (0.1-2.0); Eosinophils # 0.4 K/mm3 (0.0-0.4); Eosinophils % 4.8 % (0.1-12.0); Hematocrit 39.4 % (42.0-52.0); Lymphocytes # 3.3 K/mm3 (0.7-4.5); Mean Corpuscular HGB Conc 31.5 g/dL (31.8-35.4); Mean Corpuscular Hemoglobin 29.4 pg (27.0-31.2); Mean Corpuscular Volume 93.4 fl (80-94); Mean Platelet Volume 8.6 fl (7.4-10.4); Monocytes # 0.6 K/mm3 (0.1-1.0); Monocytes % 7.5 % (1.7-9.3); Neutrophils # 3.9 K/mm3 (1.8-7.8); Neutrophils % 47.5 % (37.0-80.0); Platelet Count 188 K/mm3 (142-424); Red Blood Count 4.22 M/mm3 (4.60-6.20); Red Cell Distribution Width 14.6 % (11.5-17.5); White Blood Count 8.1 K/mm3 (4.8-10.8)
[2022-12-26 06:06] LABS: Chloride 114 mmol/L (98-107); Hemoglobin 12.4 g/dL (14.1-18.0); Potassium 4.3 mmoL/L (3.5-5.1); Sodium 138 mmol/L (136-145)
[2022-12-26 06:08] LABS: Blood Urea Nitrogen 32 mg/dl (9-20)
[2022-12-26 06:09] LABS: Alanine Aminotransferase 21 U/L (12-78); Albumin Level 3.2 g/dl (3.5-5.0); Albumin/Globulin Ratio 1.1 (1.1-1.8); Alkaline Phosphatase 144 U/L (38-126); Anion Gap 8.3 mEq/L (5-15); Aspartate Amino Transferase 24 U/L (17-59); Bilirubin,Total 0.2 mg/dl (0.2-1.3); Calcium 9.8 mg/dl (8.4-10.2); Carbon Dioxide 20 mmol/L (22.0-30.0); Creatinine Clearance Estimated 65 mL/min (50-200); Estimated Glomerular Filt Rate 45 ml/min (>60); GFR (African American) 55 ML/MIN (>60); Glucose 86 mg/dl (74-100); Total Protein,Serum 6.2 g/dl (6.3-8.2)
[2022-12-26 07:43] VITALS: BP 93/47; PULSE 67; RESP 19; TEMP 36.7; O2SAT 96
[2022-12-26 11:06] VITALS: BP 96/59; PULSE 51; RESP 19; TEMP 36.8; O2SAT 98
--- NOTE | 2022-12-26 12:47 | EXP.DC.SUM ---
General Admission date:: 12/25/22 Discharge date: 12/26/22 HPI HPI HPI: Garret Lopez is a 52 year old male with a past medical history of MRSA cellulitis, c difficile enteritis, CKD and hypertension. He presented to the ED with generalized weakness and headache. Workup in the ED revealed creatinine level of 2.8 (baseline is ~1.4-2.0) and his systolic blood pressures were in the 80-90s. Yesterday he had cannulation of his ileostomy and did not have anything to drink. After receiving 2 liters of fluids in the ED he is feeling much better and blood pressures have increased. He urinated after arriving to the floor. 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 pathology of distal sigmoid colon revealed diverticulitis with associated periventricular abscess with serosal fibrosis. The patient developed an anastomotic leak and returned to the operating room POD #2 at which time he was found to have feculent peritonitis and he underwent washout with creation of end colostomy in addition to his loop ileostomy. He developed an intra-abdominal abscess after discharge which required drainage at [facility]. He reports that he is scheduled in January for a colonoscopy with goal to eventually reverse his ileostomy and colostomy. Initial vitals: BP 92/59 - P 64 - RR 17 - T 97.9 degrees F - SpO2 98% RA Initial workup: CBC with 12.7K WBCs, CMP with BUN 37, Cr 2.8 (baseline ~1.4-2.0) Hospital Course Hospital Course Hospital Course: The patient's kidney function improved with iv fluids. creatinine level was 1.6 on day of discharge. His hypotension and headache also resolved. He will need to follow up with his pcp in 1 week. His lisinopril was discontinued. Exam Data for Last 24 hours Vital signs and Labs for Last 24 Hours: Temp Pulse Resp BP Pulse Ox O2 Del Method 98.2 F 51 L 19 96/59 L 98 Room Air 12/26/22 11:06 12/26/22 11:06 12/26/22 11:06 12/26/22 11:06 12/26/22 11:06 12/26/22 11:06 Laboratory Results - last 24 hr 12/26/22 05:20: WBC 8.1 D, RBC 4.22 L, Hgb 12.4 L D, Hct 39.4 L, MCV 93.4, MCH 29.4, MCHC 31.5 L, RDW 14.6, Plt Count 188, MPV 8.6, Neut % (Auto) 47.5, Lymph % (Auto) 40.0, [place] % (Auto) 7.5, Eos % (Auto) 4.8, Baso % (Auto) 0.3, Neut # (Auto) 3.9, Lymph # (Auto) 3.3, [place] # (Auto) 0.6, Eos # (Auto) 0.4, Baso # (Auto) 0.0, Sodium 138, Potassium 4.3, Chloride 114 H, Carbon Dioxide 20 L, Anion Gap 8.3, BUN 32 H, Creatinine 1.60 H D, Estimated Creat Clear 65, Estimated GFR 45 L, Est GFR ( Amer) 55 L D, Glucose 86, Calcium 9.8, Total Bilirubin 0.2, AST 24, ALT 21, Alkaline Phosphatase 144 H, Total Protein 6.2 L, Albumin 3.2 L D, Globulin 3.0, Albumin/Globulin Ratio 1.1 I & O for Last 24 hours: Intake & Output 12/23/22 12/24/22 12/25/22 12/26/22 23:59 23:59 23:59 23:59 Intake Total 2028 / 2028 1560 / 1560 Output Total 700 / 700 595 / 595 Balance 1329 / 1329 965 / 965 Weight 83.971 kg 87.317 kg Constitutional Constitutional: no acute distress *Routine HEENT Exam Head: Present normocephalic Eye: Present EOMI and PERRL ENT: Present mucous membranes moist *Routine Neck Exam Neck: Present supple; Absent lymphadenopathy *Routine Respiratory Exam Respiratory: Present CTA bilaterally *Routine Cardiovascular Exam Cardiovascular: Present RRR *Routine Abdominal Exam Abdominal: Present soft and normoactive bowel sounds; Absent tenderness *Routine Extremities Exam Extremities: Absent cyanosis, clubbing or edema *Routine Skin Exam Skin: Present warm; Absent rash *Routine Neurological Exam Neurological: Present alert and oriented X3 Detailed Abdominal Exam Comments: ileostomy and colostomy Results Data Completed and Pending Labs on day of discharge: Labs from last 24 hours 12/26/22 05:20 WBC 8.1 D RBC
--- NOTE | 2022-12-26 13:08 | HMH.PHAINT1 ---
Pharmacy Intervention Comments: Patient's discharge medications reviewed with patient: -Stop Lisinopril until he speaks with provider No further questions at this time. -Tino Potter, Pharm Student
--- NOTE | 2022-12-28 12:45 | CARE MANAGER ---
Attempted to contact patient x 2 related to hospital discharge. Left VM. DANIA Umanzor
== END 2022-12-26 13:15 | disposition home or self-care (01) ==
LOC: ER 09:42 → 2ND 09:57
PROVIDERS: Emergency Medicine; Admitting Provider Internal Medicine; Emergency Provider Student in an Organized Health Care Education/Training Program; PCP Family Medicine; Visit Provider Internal Medicine
DX: N17.9 Acute kidney failure, unspecified (principal); E86.0 Dehydration; N18.9 Chronic kidney disease, unspecified; I12.9 Hypertensive chronic kidney disease with stage 1 through stage 4 chronic kidney disease, or unspecified chronic kidney disease; E78.5 Hyperlipidemia, unspecified; I95.9 Hypotension, unspecified; F17.210 Nicotine dependence, cigarettes, uncomplicated; Z79.899 Other long term (current) drug therapy; Z93.3 Colostomy status; Z93.2 Ileostomy status
CPT/HCPCS: 74018; 76000; 80053; 83735; 84100; 85025; 87636; 99285; G0378; J3475

== ENCOUNTER → 2023-01-10 15:02 | Outpatient (CLI) | payer OTHER, SELFPAY | PROVIDERS: Visit Provider Surgery | DX: S31.109A Unspecified open wound of abdominal wall, unspecified quadrant without penetration into peritoneal cavity, initial encounter (principal); B96.5 Pseudomonas (aeruginosa) (mallei) (pseudomallei) as the cause of diseases classified elsewhere | CPT/HCPCS: 87070; 87077; 87186; 87205 ==

== ENCOUNTER 2023-03-01 11:11 | Day surgery (SDC) | payer OTHER, SELFPAY ==
[2023-02-27 13:48] VITALS: BMI 28.3
[2023-03-01 11:21] VITALS: BP 118/81; PULSE 76; RESP 18; TEMP 36.1; O2SAT 95
--- NOTE | 2023-03-01 12:03 | P.PNANES_ITS ---
[facility] Disclaimer: The information contained in this section may have been updated after the patient was seen, as this information can be updated by other users. Medical History ARIELLA (acute kidney injury) Colostomy in place Dehisced intestinal anastomosis Depressed Depression Dyspnea on exertion Dyspnea on exertion GERD (gastroesophageal reflux disease) History of pleural effusion HLD (hyperlipidemia) Hypercalcemia Hyperlipemia Hypertension Ileostomy in place Would benefit from convex appliance, appropriate size. Insomnia Intra-abdominal abscess post-procedure Mass of colon Parathyroid adenoma Physical deconditioning Pleural effusion Smoking greater than 30 pack years Thyroid disorder Thyroid Nodule Vasectomy planned Surgical History History of colonoscopy History of partial thyroidectomy History of vasectomy Hx of parathyroidectomy removed 2 Status post partial colectomy Family History Other No significant family history Social History Smoking Status: Current every day smoker tobacco type: cigarettes packs per day: 1 years smoked: 40 alcohol intake: never substance use type: former substance user and crack/cocaine current occupational status: unemployed Travel in the last 8 weeks: None household members: none housing: house lives independently: Yes marital status: education level: college service: Yes intermediate: No current occupational exposures/hazards: No caffeine: Yes special laith needs: No agree to transfusion: No do you feel safe at home: Yes victim of physical abuse: No victim of emotional abuse: No victim of sexual abuse: No would you like helpful sources: No [facility] Anesthesia Checklist Patient Identification Patient Identification: Arm Band Structural Data Admitted From: Home Planned Operative Procedure/s: colonoscopy Consent for Planned Operative Procedure(s) Verified: Yes Verified Documents: Surgical Consent and History and Physical NPO Status Verified Time NPO: 00:00 Additional verifications Anesthesia Reactions: No Hx Blood Transfusions: No Blood Transfusion Reaction: No Airway Assessment Mallampati Score:: Class II C-Spine Mobility Assessed: Yes TMJ Mobility Assessed: Yes Dentition: Edentulous Neurological Assessment Level of Consciousness: Awake and Alert Anesthesia Plan Anesthesia Risk discussed: Yes Anesthesia Plan: Verified ASA Class: II Anesthesia Type: MAC
[2023-03-01 12:37] VITALS: O2SAT 98
[2023-03-01 13:58] VITALS: BP 83/60; PULSE 74; RESP 16; TEMP 36.3; O2SAT 91
--- NOTE | 2023-03-01 14:02 | HMH.SCOPE ---
Procedure: Date: 03/01/23 Patient Date of :: 1970 Procedure Performed:: Total colonoscopy to cecum Flexible proctosigmoidoscopy Indications:: Patient presents for colonoscopy. 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 He did have a proximal diverting loop ileostomy performed at that time with distal colon anastomosis. Pathology regarding distal sigmoid colon revealed diverticulitis with associated peridiverticular abscess with serosal fibrosis. However, the patient did develop anastomotic leak and had return to the operating room on postoperative day #2 at which time he was found to have appreciable feculent peritonitis and he underwent thorough washout with creation of end colostomy in addition to his loop ileostomy. He had prolonged convalescence following that and ultimately was discharged on 01/12/2022 [facility]. Patient did develop an intra-abdominal abscess after discharge which required drainage at [facility]. He has been followed in the office regularly. Patient has undergone parathyroidectomy and right thyroid lobectomy by ENT. He has had some problems with recurrent soft tissue infection in the peristomal location and in the midline usually treated without operative intervention. Arrangements are being made for possible colostomy takedown. Patient underwent cannulation of the distal limb of the ileostomy on 12/24/2022 with administration of bowel prep to the mucous fistula. He actually had developed some dehydration and renal insufficiency requiring admission following that. Plan was made to proceed with colonoscopy but he had developed soft tissue infection requiring antibiotics. At this time the area has healed and he has had no more purulent drainage. He is off antibiotics. He does describe occasionally tearing of the scar tissue with excessive activity. Performing Provider:: Arsenio Marshall MD Referring Provider:: . Sedation:: MAC sedation Procedure:: Patient history was obtained and appropriate physical examination was performed. Patient's medications and allergies were reviewed. Informed consent was obtained after explaining the benefits, alternatives, and risks of the procedure including, but not limited to, bleeding, perforation, missed lesions, and adverse reaction to anesthesia medications. Patient was transported to endoscopy procedure room. Patient was connected to monitoring devices. Throughout the procedure the patient's blood pressure, pulse, and oxygen saturations were monitored continuously. Patient identification and planned procedure were verified by the staff. Patient was maintained in a supine position. Digital examination was performed of the colostomy. Variable stiffness Olympus colonoscope was inserted and advanced under direct visualization to the cecum. Adequacy of the colonic preparation was noted. The colonoscope was then slowly withdrawn while carefully examining the color, texture, anatomy, and integrity of the mucosoa circumferentially. Within the rectum retroflexion was performed. Colonoscope was then withdrawn. . There was some inspissated mucus present in the left colon. Colonoscope was ultimately advanced to the cecum. In the right colon there was relatively normal-appearing stool coating the santiago. Extremely large amount of trans colonoscopic irrigation was performed clearing the right colon. Several liters of saline was irrigated through the colonoscope. This resulted in evacuation of the mucousy stool balls as well. The colonoscope was slowly withdrawn with careful inspection. There is no obvious adenomatous polyps or colon masses noted. Defunctionalized colonic mucosa was somewhat abnormal appearing. There were a few diverticuli in the distal colon within approximately 20 cm
[2023-03-01 14:08] VITALS: BP 95/53; PULSE 71; RESP 16; O2SAT 96
[2023-03-01 14:18] VITALS: BP 93/61; PULSE 66; RESP 16; O2SAT 96
[2023-03-01 14:28] VITALS: BP 99/58; PULSE 77; RESP 16; O2SAT 98
== END 2023-03-01 14:28 | disposition home or self-care (01) ==
PROVIDERS: PCP Family Medicine; Visit Provider Surgery
PROC: 0DJD8ZZ Inspection of Lower Intestinal Tract, Via Natural or Artificial Opening Endoscopic (ICD-10-PCS; CPT 44388; principal; 2023-03-01 12:30)
DX: Z93.3 Colostomy status (principal); K57.32 Diverticulitis of large intestine without perforation or abscess without bleeding; Z90.49 Acquired absence of other specified parts of digestive tract
CPT/HCPCS: 44388; 45330; J2704

== ENCOUNTER → 2023-03-13 07:31 | Outpatient (CLI) | payer OTHER, SELFPAY ==
--- NOTE | 2023-03-13 07:32 | CT_ITS ---
FINAL REPORT TECHNIQUE: Thin section axial images are obtained through the abdomen and pelvis after intravenous contrast. Reconstruction images were obtained from the axial data. Exam was performed using dose reduction techniques. CLINICAL HISTORY: takedown , Hx of Abd abscess, dehisced intestinal anastomosis, ileostomy in place COMPARISON: September 26, 2022 and July 27, 2022 FINDINGS: LUNG BASES: Lung bases are clear. Heart size is normal. LIVER: Fatty infiltrated. Peripheral enhancing lesions along the right liver dome may be on the peritoneal surface. On image 20 a collection measures 2.7 cm. On image 23 a collection measures 1.5 cm. These may have been present on the prior exam from July 27, 2022. On the posterior right liver is an additional 1.4 cm abnormality on image 39. GALLBLADDER/BILIARY SYSTEM: Gallbladder is present. No gallstones. No biliary dilatation. SPLEEN: Unremarkable. PANCREAS: Unremarkable. ADRENALS: Unremarkable. SYSTEM: No hydronephrosis, renal mass, or renal stone. The prostate is enlarged. There is a Katz's pouch. GI TRACT: No small bowel obstruction or dilatation. Normal appendix. No acute colon abnormality. There are bilateral lower quadrant ostomies. There is a small parastomal hernia. LYMPH NODES/RETROPERITONEUM/MESENTERY: No lymphadenopathy. No abdominal aortic aneurysm. OTHER: No ascites. Remaining soft tissues without acute abnormality. BONES: No acute osseous abnormality. IMPRESSION: Small peripheral enhancing abnormalities along the peritoneal surface of the liver. Given history of prior abdominal abscess, these may represent chronic abscesses. Peritoneal metastasis cannot be excluded Reviewed, Interpreted and Dictated by Anamaria Lee MD Transcribed by Ayo Godoy Authenticated and [facility]
[2023-03-13 08:07] LABS: Blood Urea Nitrogen 24 mg/dl (9-20); Estimated Glomerular Filt Rate 49 ml/min (>60); GFR (African American) 59 ML/MIN (>60)
== END ==
PROVIDERS: PCP Family Medicine; Visit Provider Surgery
DX: Z93.2 Ileostomy status (principal)
CPT/HCPCS: 36415; 74177; 82565; 84520; Q9967

== ENCOUNTER → 2023-04-16 09:52 | Outpatient (CLI) | payer OTHER, SELFPAY ==
[2023-04-16 10:23] LABS: Basophils # 0.1 K/mm3 (0-0.2); Basophils % 0.7 % (0.1-2.0); Eosinophils # 0.3 K/mm3 (0.0-0.4); Lymphocytes # 2.5 K/mm3 (0.7-4.5); Lymphocytes % 28.4 % (10-50); Mean Corpuscular HGB Conc 32.8 g/dL (31.8-35.4); Mean Corpuscular Hemoglobin 31.8 pg (27.0-31.2); Mean Corpuscular Volume 96.8 fl (80-94); Mean Platelet Volume 8.4 fl (7.4-10.4); Monocytes # 0.6 K/mm3 (0.1-1.0); Monocytes % 6.8 % (1.7-9.3); Neutrophils # 5.3 K/mm3 (1.8-7.8); Neutrophils % 61.2 % (37.0-80.0); Platelet Count 181 K/mm3 (142-424); Red Blood Count 5.37 M/mm3 (4.60-6.20); Red Cell Distribution Width 13.8 % (11.5-17.5); White Blood Count 8.7 K/mm3 (4.8-10.8)
[2023-04-16 10:46] LABS: Chloride 109 mmol/L (98-107); Potassium 4.7 mmoL/L (3.5-5.1); Sodium 137 mmol/L (136-145)
[2023-04-16 10:49] LABS: Anion Gap 10.7 mEq/L (5-15); Blood Urea Nitrogen 22 mg/dl (9-20); Calcium 11.1 mg/dl (8.4-10.2); Carbon Dioxide 22 mmol/L (22.0-30.0); Estimated Glomerular Filt Rate 49 ml/min (>60); GFR (African American) 59 ML/MIN (>60); Glucose 77 mg/dl (74-100)
== END ==
PROVIDERS: PCP Family Medicine; Visit Provider Surgery
DX: L02.211 Cutaneous abscess of abdominal wall (principal)
CPT/HCPCS: 36415; 80048; 85025; 86850

== ENCOUNTER 2023-04-18 13:21 | Inpatient (IN) | payer OTHER, SELFPAY ==
[2023-04-16 10:01] VITALS: BMI 29.7
[2023-04-18] VITALS (23 sets, daily range): BP systolic 61–117; BP diastolic 40–74; PULSE 76–96; RESP 12–94; TEMP 36.2–36.4; O2SAT 20–98; BMI 30.5
--- NOTE | 2023-04-18 07:01 | EXP.ANES.CKL ---
[facility] Disclaimer: The information contained in this section may have been updated after the patient was seen, as this information can be updated by other users. Medical History ARIELLA (acute kidney injury) Colostomy in place Dehisced intestinal anastomosis Depressed Depression Dyspnea on exertion Dyspnea on exertion GERD (gastroesophageal reflux disease) History of pleural effusion HLD (hyperlipidemia) Hypercalcemia Hyperlipemia Hypertension Ileostomy in place Would benefit from convex appliance, appropriate size. Insomnia Intra-abdominal abscess post-procedure Mass of colon Parathyroid adenoma Physical deconditioning Pleural effusion Smoking greater than 30 pack years Thyroid disorder Thyroid Nodule Vasectomy planned Surgical History History of colonoscopy History of partial thyroidectomy History of vasectomy Hx of parathyroidectomy removed 2 Status post partial colectomy Family History Other No significant family history Social History Smoking Status: Current every day smoker tobacco type: cigarettes packs per day: 1 years smoked: 40 alcohol intake: never substance use type: former substance user and crack/cocaine current occupational status: unemployed Travel in the last 8 weeks: None household members: none housing: house lives independently: Yes marital status: education level: college service: Yes intermediate: No current occupational exposures/hazards: No caffeine: Yes special laith needs: No agree to transfusion: No do you feel safe at home: Yes victim of physical abuse: No victim of emotional abuse: No victim of sexual abuse: No would you like helpful sources: No [facility] Anesthesia Checklist Patient Identification Patient Identification: Arm Band and Family Structural Data Admitted From: Home Planned Operative Procedure/s: Colostomy closure Consent for Planned Operative Procedure(s) Verified: Yes Verified Documents: Surgical Consent and History and Physical NPO Status Verified Time NPO: 00:00 Additional verifications Patient : No Anesthesia Reactions: No Hx Blood Transfusions: No Blood Transfusion Reaction: No Cephalosporin Allergy: No Previous Colonoscopy: Yes Airway Assessment Mallampati Score:: Class II C-Spine Mobility Assessed: Yes TMJ Mobility Assessed: Yes Dentition: Edentulous Neurological Assessment Level of Consciousness: Awake, Alert, Appropriate and Follows Commands Hx Seizures: No Numbness or tingling in extremities: No Anesthesia Plan Anesthesia Risk discussed: Yes ASA Class: III Anesthesia Type: General
--- NOTE | 2023-04-18 12:23 | EXP.GEN.HP ---
HPI HPI HPI: Patient is a 52-year-old male with history of pituitary dysfunction, hypertension, hypercalcemia secondary to primary hyperparathyroidism status post parathyroidectomy, chronic tobacco abuse who presents for surgery for laparotomy with colostomy takedown. He is a 52-year-old who had developed symptoms consistent with partial distal large bowel obstruction beginning in approximately 2020. He had undergone thorough evaluation at outside facility without clear etiology. In 2021 I had seen him and evaluated thoroughly. Ultimately plan was made for sigmoid colon resection. 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 He did have a proximal diverting loop ileostomy performed at that time with distal colon anastomosis. Pathology regarding distal sigmoid colon revealed diverticulitis with associated peridiverticular abscess with serosal fibrosis. However, the patient did develop anastomotic leak and had return to the operating room on postoperative day #2 at which time he was found to have appreciable feculent peritonitis and he underwent thorough washout with creation of end colostomy in addition to his loop ileostomy. He had prolonged convalescence following that and ultimately was discharged on 01/12/2022 [facility]. Patient did develop an intra-abdominal abscess after discharge which required drainage at [facility]. He has been followed in the office regularly. Patient has undergone parathyroidectomy and right thyroid lobectomy by ENT. He has had some problems with recurrent soft tissue infection in the peristomal location and in the midline usually treated without operative intervention. Arrangements are being made for possible colostomy takedown. Patient underwent cannulation of the distal limb of the ileostomy on 12/24/2022 with administration of bowel prep to the mucous fistula. He actually had developed some dehydration and renal insufficiency requiring admission following that. He did undergo colonoscopy the the of the left abdominal colostomy on 03/01/2023. There was some stool in the right colon and some inspissated mucus. With thorough trans colonoscopic irrigation this was all able to be cleared. Colonoscopy via the anus revealed rectosigmoid stump at approximately 18 cm and inspissated mucus which was evacuated. Tentative plan has been for colostomy takedown leaving the ileostomy in place until assurance of healing and absence of leak. [facility] Disclaimer: The information contained in this section may have been updated after the patient was seen, as this information can be updated by other users. Medical History ARIELLA (acute kidney injury) Colostomy in place Dehisced intestinal anastomosis Depressed Depression Dyspnea on exertion Dyspnea on exertion GERD (gastroesophageal reflux disease) History of pleural effusion HLD (hyperlipidemia) Hypercalcemia Hyperlipemia Hypertension Ileostomy in place Would benefit from convex appliance, appropriate size. Insomnia Intra-abdominal abscess post-procedure Mass of colon Parathyroid adenoma Physical deconditioning Pleural effusion Smoking greater than 30 pack years Thyroid disorder Thyroid Nodule Vasectomy planned Surgical History History of colonoscopy History of partial thyroidectomy History of vasectomy Hx of parathyroidectomy removed 2 Status post partial colectomy Family History Other No significant family history Social History Smoking Status: Current every day smoker tobacco type: cigarettes packs per day: 1 years smoked: 40 alcohol intake: never substance use type: former substance user and
--- NOTE | 2023-04-18 12:54 | P.PNANES_ITS ---
[facility] Anesthesia Record Part I Anesthesia Record I Intake, IV Amount: 1,900 Hydration: Adequate Estimated blood loss (mL): 300 Urine output (mL): 600 Blood Products used (#): none Blood Pressure: 66/44 SaO2: 94 Pulse Rate: 80 Airway Patency: Patent Respiratory Rate: 12 Temperature: 97.2 F Patient is:: Drowsy and Unstable Stable to PACU at:: 12:20 Comments:: Blood pressure low on arrival to recovery room. Treated with ephedrine, 20 mg I.V plus 30 IM. Blood pressure improved some. Narcan 0.04 mg, with good results. Holding prn pain medications for 15 to 20 minutes, and will try morphine 2 mg.
--- NOTE | 2023-04-18 13:13 | EXP.OP.NOTE ---
Date of procedure: 04/18/23 Pre-op Diagnosis:: Obsolete colostomy Post-op Diagnosis:: Same Procedure performed:: Exploratory laparotomy with extensive lysis of adhesions and takedown of colostomy with pelvic anastomosis using 29 mm EEA stapling device Surgeon:: Arsenio Marshall MD Anesthesia: HAYLEY Estimated blood loss (mL): 50 Operative findings:: There were extensive intra-abdominal adhesions. He did have some diverticulosis. When there was chronic elongated abscess in the right abdomen superior to the loop ileostomy which was excised. Operative note:: Patient was taken to the operating room. He was given preoperative intravenous antibiotics. In the operating room he was placed in a supine position. General anesthesia was induced. Segura catheter was placed. Loop ileostomy appliance was removed. Occlusive dressing was applied over the loop ileostomy. Abdomen was then thoroughly prepped and draped in the standard surgical fashion. Skin was marked with skin marker for planned incision. Incision was made in the midline with the ellipse excising the scar tissue from previous open wound. Dissection was carried down through subcutaneous tissues to the fascia. Fascia was incised. He did have some retraction of the fascia to the left lateral region of the abdomen. Exposure was achieved. Thorough lysis of adhesions was carried out using Metzenbaum dissection with some blunt dissection. Adhesiolysis was carried out for approximately 2 hours estimated. Dissection was carried out into the pelvis and the rectosigmoid stump was identified. It was difficult to locate normal tissue planes due to the prior chronic inflammation. However the rectosigmoid stump was able to be identified and left ureter was noted and preserved. Dissection was carried out around the end colostomy intra-abdominal he. Once this was performed to a satisfactory end result elliptical incision was made around the ostomy and dissection was carried down to the fascia. End colostomy was then delivered into the abdominal cavity. The left colon was freed along the white line of Toldt. Omentum adherent to the colon was dissected free from the mesocolon. Ultimately it was felt that adequate amount of colon was freed and it appeared as though this allowed for tension-free anastomosis. Proximal colon was cleaned free of extraneous tissues and PAVITHRA linear cutting stapler was used to remove the colostomy and skin. 2-0 Prolene pursestring was created using the pursestring device. Dilators were brought onto the field. 25 mm dilator was easily inserted. 28 was somewhat tight. There was some inspissated mucus within the colon and this was extracted. Plan was made for 29 mm EEA anastomosis. Attention was turned to rigid sigmoidoscopy. This was performed while primary surgeon inspected rectosigmoid transabdominally. It appeared as though there was adequate rectosigmoid colon for anastomosis. Inspissated mucus was extracted via the anus. 29 mm EEA stapling device was inserted via the anus after the anvil was secured into the descending colon with a pursestring. Ultimately 29 mm EEA stapling was performed. There was question of proximal intact doughnut . Rigid sigmoidoscopy was performed as the pelvis was filled with warm saline and colon was clamped digitally proximal to the anastomosis. There was no obvious anastomotic leak of air. Anastomosis was inspected. There was concern for possible focal tension posteriorly at the anastomosis and colon was somewhat mobilized along the left paracolic gutter to decrease the amount of tension at the anastomosis. There was dense firm adhesion superior to the ileostomy. Dissection was carried out and this appeared to be chronic granuloma likely from prior abscess. This was dissected free from surrounding tissues and excised. Inspection around the liver could not be adequately performed due to extensive abdominal adhesions. Peritoneal cavity was then thoroug
--- NOTE | 2023-04-18 13:37 | SUR.PHASEI ---
[id number]: Patient began complaining of pain in abdomen, rated it a 3 out of 10 on the pain scale. Patient stated that it burned. Per Anesthesia, due to having to administer Narcan to increase vitals upon enterance into PACU patient was unable to recieve any pain med at this time. Made Med-Surg nurse made aware at time of report.
--- NOTE | 2023-04-18 13:52 | HMH.PHAINT1 ---
Pharmacy Intervention Comments: MEDICATION RECONCILIATION COMPLETED ON PATIENT USING EXTERNAL FILL HISTORY FROM PHARMACY. -ROJAS VAN, MALIKD
[2023-04-18 14:44] LABS: Microscopic,Cath URINE MICROSCOPIC (MICROSCOPIC)
[2023-04-18 15:00] LABS: Appearance,Urine/Cath CLEAR (Clear); Bilirubin,Cath Negative (Negative); Blood, Urine/Cath TRACE-I (Negative); Color,Urine/Cath YELLOW (Yellow); Glucose,Urine/Cath (UA) Negative (Negative); Ketones,Urine/Cath Negative (Negative); Leukocyte Esterase,Cath Negative (Negative); Nitrate,Cath Negative (Negative); PH,Urine/Cath 5.5 (5.0-8.5); Protein,Urine/Cath Negative (Negative); Urobilinogen,Cath 0.2 EU/dl (0.2)
[2023-04-18 15:18] LABS: Hyaline Casts,Urine/Cath O #/lpf (0); RBC,Urine/Cath Occasional # /hpf (0-3); Squamous Epithelial Ur./Cath Occasional #/hpf (0-5)
--- NOTE | 2023-04-18 17:40 | EXP.MED.CON ---
History of Present Illness *Admission Date: 04/18/23 *Reason for visit:: Abdominal surgery *History of present illness: Patient is a 52-year-old male with past medical history of CKD hypertension, sigmoid colon resection for inflammatory mass who presented to hospital for colostomy reversal procedure. At time of my evaluation patient is status post surgery, complains of abdominal pain at the site of surgery otherwise denies shortness of breath chest pain nausea vomiting fever chills. [facility] Disclaimer: The information contained in this section may have been updated after the patient was seen, as this information can be updated by other users. Medical History ARIELLA (acute kidney injury) Colostomy in place Dehisced intestinal anastomosis Depressed Depression Dyspnea on exertion Dyspnea on exertion GERD (gastroesophageal reflux disease) History of pleural effusion HLD (hyperlipidemia) Hypercalcemia Hyperlipemia Hypertension Ileostomy in place Would benefit from convex appliance, appropriate size. Insomnia Intra-abdominal abscess post-procedure Mass of colon Parathyroid adenoma Physical deconditioning Pleural effusion Smoking greater than 30 pack years Thyroid disorder Thyroid Nodule Vasectomy planned Surgical History History of colonoscopy History of partial thyroidectomy History of vasectomy Hx of parathyroidectomy removed 2 Status post partial colectomy Family History Other No significant family history Social History (Updated 04/18/23 @ 14:13 by Vashti Chou RN) Smoking Status: Current every day smoker tobacco type: cigarettes packs per day: 1 years smoked: 40 alcohol intake: never substance use type: former substance user and crack/cocaine current occupational status: unemployed Travel in the last 8 weeks: None household members: none housing: house lives independently: Yes marital status: education level: college service: Yes intermediate: No current occupational exposures/hazards: No caffeine: Yes special laith needs: No agree to transfusion: No do you feel safe at home: Yes victim of physical abuse: No victim of emotional abuse: No victim of sexual abuse: No would you like helpful sources: No Exam Data for Last 24 hours Vital signs and Labs for Last 24 Hours: Temp Pulse Resp BP Pulse Ox O2 Del Method O2 Flow Rate 97.6 F 87 18 101/62 L 97 Nasal Cannula 2 04/18/23 13:48 04/18/23 17:30 04/18/23 17:30 04/18/23 17:30 04/18/23 17:30 04/18/23 17:30 04/18/23 17:30 Laboratory Results - last 24 hr 04/18/23 07:55: Urine Color Yellow, Urine Appearance Clear, Urine pH 5.5, Ur Specific [place] 1.020, Urine Protein Negative, Urine Glucose (UA) Negative, Urine Ketones Negative, Urine Blood Trace-i, Urine Nitrate Negative, Urine Bilirubin Negative, Urine Urobilinogen 0.2, Ur Leukocyte Esterase Negative, Urine RBC Occasional, Urine WBC None, Ur Squamous Epith Cells Occasional, Hyaline Casts O I & O for Last 24 hours: Intake & Output 04/15/23 04/16/23 04/17/23 04/18/23 23:59 23:59 23:59 23:59 Intake Total 1900 / 1900 Output Total 0 / 0 Balance 1900 / 1900 Weight 96.615 kg 99.365 kg Constitutional Constitutional: no acute distress *Routine HEENT Exam Head: Present normocephalic Eye: Present EOMI and PERRL ENT: Present mucous membranes moist *Routine Neck Exam Neck: Present supple; Absent lymphadenopathy *Routine Respiratory Exam Respiratory: Present CTA bilaterally *Routine Cardiovascular Exam Cardiovascular: Present RRR *Routine Abdominal Exam Abdominal: Absent tenderness Comments: abdomen has ileostomy bag attached and R side covered with dressing, tender *Routine Extremities Exam Extremities: Absent cyanosis, c
[2023-04-18 19:04] LABS: Lactic Acid 4.2 mmol/L (0.7-2.1)
[2023-04-18 22:42] LABS: Reflex Lactic Add Lactic Reflex
[2023-04-18 23:05] LABS: Lactic Acid Follow Up (RFLX 1) 2.2 mmol/L (0.7-2.1)
[2023-04-19] VITALS (13 sets, daily range): BP systolic 93–131; BP diastolic 59–93; PULSE 79–94; RESP 12–20; TEMP 36.2–37.2; O2SAT 90–100; BMI 30.7
[2023-04-19 00:17] LABS: Reflex Lactic (2 hrs) Add Lactic Reflex
[2023-04-19 00:43] LABS: Lactic Acid Follow up (RFLX 2) 1.7 mmol/L (0.7-2.1)
--- NOTE | 2023-04-19 05:59 | PC.NURSE ---
[employer] pump cleared, 34mg given this shift.
--- NOTE | 2023-04-19 06:18 | EXP.SURG.PN ---
Subjective Narrative: No issues overnight. Patient states that he is sore . Has had some minor nausea. Exam Data for Last 24 hours Vital signs and Labs for Last 24 Hours: Temp Pulse Resp BP Pulse Ox O2 Del Method O2 Flow Rate 97.6 F 94 H 18 106/68 L 97 Nasal Cannula 2 04/18/23 13:48 04/19/23 04:00 04/19/23 04:00 04/19/23 04:00 04/19/23 04:00 04/19/23 05:00 04/19/23 05:00 Laboratory Results - last 24 hr 04/18/23 07:55: Urine Color Yellow, Urine Appearance Clear, Urine pH 5.5, Ur Specific [place] 1.020, Urine Protein Negative, Urine Glucose (UA) Negative, Urine Ketones Negative, Urine Blood Trace-i, Urine Nitrate Negative, Urine Bilirubin Negative, Urine Urobilinogen 0.2, Ur Leukocyte Esterase Negative, Urine RBC Occasional, Urine WBC None, Ur Squamous Epith Cells Occasional, Hyaline Casts O 04/18/23 18:30: Lactate 4.2 H 04/18/23 22:50: Lactate 2.2 H 04/19/23 00:30: Lactate 1.7 I & O for Last 24 hours: Intake & Output 04/16/23 04/17/23 04/18/23 04/19/23 11:59 11:59 11:59 11:59 Intake Total 3925 / 3925 Output Total 1800 / 1800 Balance 2125 / 2125 Weight 213 lb 219 lb 0.997 oz *Routine Abdominal Exam Abdominal: Present distended Comments: Dressing is dry. Ileostomy without significant output. Progress Note: A&P Assessment and plan (1) Post-operative pain: Status: Acute (2) Primary hyperparathyroidism: Status: Acute (3) Severe protein-calorie malnutrition: Status: Acute (4) Tobacco use disorder: Status: Acute (5) History of depression: Status: Acute (6) Hypertension: Status: Acute (7) Hypercalcemia: Status: Acute Assessment and Plan Assessment and Plan for All Diagnoses:: I would plan to keep his Segura catheter for now due to retraction on the bladder intraoperatively. Increase ambulation. Continue n.p.o. except for ice chips until ileostomy shows better functioning and nausea resolves.
[2023-04-19 06:26] LABS: Alanine Aminotransferase 33 U/L (12-78); Albumin Level 3.4 g/dl (3.5-5.0); Albumin/Globulin Ratio 1.1 (1.1-1.8); Alkaline Phosphatase 93 U/L (38-126); Anion Gap 13.6 mEq/L (5-15); Aspartate Amino Transferase 32 U/L (17-59); Bilirubin,Total 0.8 mg/dl (0.2-1.3); Blood Urea Nitrogen 22 mg/dl (9-20); Calcium 9.7 mg/dl (8.4-10.2); Carbon Dioxide 18 mmol/L (22.0-30.0); Chloride 110 mmol/L (98-107); Creatinine Clearance Estimated 91 mL/min (50-200); Estimated Glomerular Filt Rate 58 ml/min (>60); GFR (African American) 70 ML/MIN (>60); Globulin 3.1 g/dL (1.3-3.2); Glucose 116 mg/dl (74-100); Potassium 4.6 mmoL/L (3.5-5.1); Sodium 137 mmol/L (136-145); Total Protein,Serum 6.5 g/dl (6.3-8.2)
[2023-04-19 06:45] LABS: Eosinophils % 0.1 % (0.1-12.0); Hematocrit 41.6 % (42.0-52.0); Hemoglobin 13.7 g/dL (14.1-18.0); Lymphocytes # 1.7 K/mm3 (0.7-4.5); Mean Corpuscular Hemoglobin 31.7 pg (27.0-31.2); Mean Platelet Volume 8.9 fl (7.4-10.4); Monocytes % 6.8 % (1.7-9.3); Neutrophils # 11.3 K/mm3 (1.8-7.8); Neutrophils % 81.1 % (37.0-80.0); Platelet Count 176 K/mm3 (142-424); Red Blood Count 4.33 M/mm3 (4.60-6.20)
--- NOTE | 2023-04-19 09:01 | PC.NURSE ---
COURTESY TECH NOTE; ROUNDED ON PT 0820, PT DENIED NEED FOR ASSISTANCE WITH RESTROOM AND NEED TO REPOSITION IN BED. ICE CHIPS BROUGHT AT PT REQUEST. CALL LIGHT WITHIN REACH, NO FURTHER REQUESTS AT THIS TIME CHRIS NAJERA
--- NOTE | 2023-04-19 09:17 | PC.NURSE ---
notified MD Marshall that pt refused to ambulate while stokes in place, asked if could take stokes out, stated to leave stokes in place until further notice
--- NOTE | 2023-04-19 09:32 | EXP.ANES.II ---
[facility] Anesthesia Record Part II Anesthesia Record Part II Discharge Time: 13:25 Destination: Second Floor PACU nurse assessment reviewed?: Yes Patient Condition:: Good Anesthesia Complications:: None Swallowing reflex intact?: Yes Airway Patency: Patent Cyanosis?: No Blood Pressure: 107/64 SaO2: 94 Respiratory Rate: 20 Pulse Rate: 88 Temperature: 97.2 F Mental Status: Alert & Oriented Pain level:: 3 Nausea and/or vomitting:: None Intake, IV Amount: 0 Hydration: Adequate
--- NOTE | 2023-04-19 13:20 | PC.NURSE ---
removed stokes catheter per order from MD Marshall
--- NOTE | 2023-04-19 13:45 | PC.NURSE ---
attempted to get pt out of bed to chair, pt able to sit on side of bed but hurt too bad and oxygen saturations dipped down to 88% RA when tried to stand, pt stated would try again later but hurts too bad right now
--- NOTE | 2023-04-19 16:02 | EXP.PN ---
Subjective *Date: 04/19/23 *Time: 16:02 Interval history: Patient was seen and evaluated at the bedside. denies chest pain, shortness of breath, nausea, vomiting, abdominal pain. Patient does not have any complaints at this time. feels better overall Exam Data for Last 24 hours Vital signs and Labs for Last 24 Hours: Temp Pulse Resp BP Pulse Ox O2 Del Method O2 Flow Rate 99 F 82 15 109/69 L 94 L Room Air 2 04/19/23 12:00 04/19/23 14:00 04/19/23 14:00 04/19/23 14:00 04/19/23 14:00 04/19/23 15:00 04/19/23 05:00 Laboratory Results - last 24 hr 04/18/23 18:30: Lactate 4.2 H 04/18/23 22:50: Lactate 2.2 H 04/19/23 00:30: Lactate 1.7 04/19/23 05:34: WBC 14.0 H D, RBC 4.33 L, Hgb 13.7 L, Hct 41.6 L, MCV 96.0 H, MCH 31.7 H, MCHC 33.0, RDW 14.0, Plt Count 176, MPV 8.9, Neut % (Auto) 81.1 H, Lymph % (Auto) 12.0, [place] % (Auto) 6.8, Eos % (Auto) 0.1, Baso % (Auto) 0.0 L, Neut # (Auto) 11.3 H, Lymph # (Auto) 1.7, [place] # (Auto) 1.0, Eos # (Auto) 0.0, Baso # (Auto) 0.0, Sodium 137, Potassium 4.6, Chloride 110 H, Carbon Dioxide 18 L, Anion Gap 13.6, BUN 22 H, Creatinine 1.30 H, Estimated Creat Clear 91, Estimated GFR 58 L, Est GFR ( Amer) 70, Glucose 116 H, Calcium 9.7, Total Bilirubin 0.8, AST 32, ALT 33, Alkaline Phosphatase 93, Total Protein 6.5, Albumin 3.4 L, Globulin 3.1, Albumin/Globulin Ratio 1.1 Temp Pulse Resp BP Pulse Ox O2 Del Method O2 Flow Rate 97.6 F 87 18 101/62 L 97 Nasal Cannula 2 04/18/23 13:48 04/18/23 17:30 04/18/23 17:30 04/18/23 17:30 04/18/23 17:30 04/18/23 17:30 04/18/23 17:30 Laboratory Results - last 24 hr 04/18/23 07:55: Urine Color Yellow, Urine Appearance Clear, Urine pH 5.5, Ur Specific [place] 1.020, Urine Protein Negative, Urine Glucose (UA) Negative, Urine Ketones Negative, Urine Blood Trace-i, Urine Nitrate Negative, Urine Bilirubin Negative, Urine Urobilinogen 0.2, Ur Leukocyte Esterase Negative, Urine RBC Occasional, Urine WBC None, Ur Squamous Epith Cells Occasional, Hyaline Casts O I & O for Last 24 hours: Intake & Output 04/16/23 04/17/23 04/18/23 04/19/23 23:59 23:59 23:59 23:59 Intake Total 2671 / 2671 1254 / 1254 Output Total 900 / 900 900 / 900 Balance 1771 / 1771 354 / 354 Weight 96.615 kg 99.365 kg 99.365 kg Intake & Output 04/15/23 04/16/23 04/17/23 04/18/23 23:59 23:59 23:59 23:59 Intake Total 1900 / 1900 Output Total 0 / 0 Balance 1900 / 1900 Weight 96.615 kg 99.365 kg Constitutional Constitutional: no acute distress *Routine HEENT Exam Head: Present normocephalic Eye: Present EOMI and PERRL ENT: Present mucous membranes moist *Routine Neck Exam Neck: Present supple; Absent lymphadenopathy *Routine Respiratory Exam Respiratory: Present CTA bilaterally *Routine Cardiovascular Exam Cardiovascular: Present RRR *Routine Abdominal Exam Abdominal: Absent tenderness Comments: abdomen has ileostomy bag attached and R side covered with dressing, tender *Routine Extremities Exam Extremities: Absent cyanosis, clubbing or edema *Routine Skin Exam Skin: Present warm; Absent rash *Routine Neurological Exam Neurological: Present alert and oriented X3 Assessment and Plan *Assessment and plan (1) Post-operative pain: Status: Acute Category: Medical Code(s): G89.18 - Other acute postprocedural pain (2) Primary hyperparathyroidism: Status: Acute Category: Medical Code(s): E21.0 - Primary hyperparathyroidism (3) Severe protein-calorie malnutrition: Status: Acute Category: Medical Code(s): E43 - Unspecified severe protein-calorie malnutrition (4) Tobacco use disorder: Status: Acute Category: Medical Code(s): F17.200 - Nicotine dependence, unspecified, uncomplicated (5) History of depression: Status: Acute Category: Medical Code(s): Z86.59 - Personal history of other mental and behavioral disorders (6) Hypertension:
--- NOTE | 2023-04-19 17:08 | PC.NURSE ---
cleared coal bagger pump, 29mL intake for this shift (added to I and O sheet but under other [only option])
--- NOTE | 2023-04-19 21:00 | PC.NURSE ---
Titrated 02 to 3L at this time due to sats below 92%. Educated patient on incentive spirometer, pt verbalizes understanding.
[2023-04-20] VITALS (15 sets, daily range): BP systolic 102–141; BP diastolic 66–89; PULSE 79–95; RESP 16–22; TEMP 36.5–37.2; O2SAT 87–94; BMI 30.5
--- NOTE | 2023-04-20 03:00 | PC.NURSE ---
titrated 02 to 4L due to patient 02 less than 92%.
--- NOTE | 2023-04-20 03:34 | XR_ITS ---
PROCEDURE INFORMATION: Exam: XR Chest Exam date and time: 04/20/2023 4:01 AM Age: 52 years old Clinical indication: Shortness of breath; Additional info: Increased oxygen demand. TECHNIQUE: Imaging protocol: Radiologic exam of the chest. Views: 1 view. COMPARISON: CR XR CHEST PORTABLE 03/29/2022 6:33 AM FINDINGS: Lungs: There is opacity at the left lung base which may represent effusion and/or parenchymal disease. There is right infrahilar patchy opacity. Pleural spaces: Unremarkable. No pleural effusion. No pneumothorax. Heart/Mediastinum: Unremarkable. No cardiomegaly. Bones/joints: Unremarkable. IMPRESSION: Left basilar opacity likely representing effusion and/or parenchymal disease. Right infrahilar patchy airspace disease.
--- NOTE | 2023-04-20 03:38 | PC.NURSE ---
Patient up to bedside chair at this time. During transfer to chair patient became tachycardic and o2 dropped to mid 80's. Notified provider who orders portable chest xray at this time. Patient encouraged to continue IS and cough and deep breathing exercises. Call bonilla and personal items in reach
--- NOTE | 2023-04-20 06:00 | PC.NURSE ---
Titrated o2 to 3L o2 sats 94% at this time.
--- NOTE | 2023-04-20 06:03 | PC.NURSE ---
Addendum entered by Imelda Mace RN 04/20/23 06:04: Verified with DANIA Kay Original Note: [employer] pump cleared at this time. 37.7mg used this shift. Patient up in chair alert and oriented no concerns voiced.
[2023-04-20 07:03] LABS: Basophils % 0.2 % (0.1-2.0); Eosinophils # 0.2 K/mm3 (0.0-0.4); Eosinophils % 1.5 % (0.1-12.0); Hematocrit 41.2 % (42.0-52.0); Hemoglobin 13.6 g/dL (14.1-18.0); Lymphocytes % 17.4 % (10-50); Mean Corpuscular Hemoglobin 31.7 pg (27.0-31.2); Mean Corpuscular Volume 96.2 fl (80-94); Mean Platelet Volume 8.7 fl (7.4-10.4); Monocytes # 0.9 K/mm3 (0.1-1.0); Monocytes % 7.7 % (1.7-9.3); Neutrophils # 8.3 K/mm3 (1.8-7.8); Neutrophils % 73.1 % (37.0-80.0); Platelet Count 162 K/mm3 (142-424); Red Blood Count 4.28 M/mm3 (4.60-6.20); Red Cell Distribution Width 13.8 % (11.5-17.5); White Blood Count 11.3 K/mm3 (4.8-10.8)
[2023-04-20 07:12] LABS: Blood Urea Nitrogen 17 mg/dl (9-20); Calcium 10.5 mg/dl (8.4-10.2); Carbon Dioxide 24 mmol/L (22.0-30.0); Chloride 103 mmol/L (98-107); Creatinine Clearance Estimated 99 mL/min (50-200); Estimated Glomerular Filt Rate 63 ml/min (>60); GFR (African American) 76 ML/MIN (>60); Glucose 82 mg/dl (74-100); Sodium 133 mmol/L (136-145)
--- NOTE | 2023-04-20 08:42 | EXP.SURG.PN ---
Subjective Patient reports: no new complaints Narrative: The patient states that he is very hungry . Exam Data for Last 24 hours Vital signs and Labs for Last 24 Hours: Temp Pulse Resp BP Pulse Ox O2 Del Method O2 Flow Rate 98.4 F 92 H 22 141/89 H 94 L Nasal Cannula 3 04/20/23 07:46 04/20/23 08:00 04/20/23 08:00 04/20/23 08:00 04/20/23 08:00 04/20/23 08:00 04/20/23 08:00 Laboratory Results - last 24 hr 04/20/23 06:50: WBC 11.3 H, RBC 4.28 L, Hgb 13.6 L, Hct 41.2 L, MCV 96.2 H, MCH 31.7 H, MCHC 33.0, RDW 13.8, Plt Count 162, MPV 8.7, Neut % (Auto) 73.1, Lymph % (Auto) 17.4, [place] % (Auto) 7.7, Eos % (Auto) 1.5, Baso % (Auto) 0.2, Neut # (Auto) 8.3 H, Lymph # (Auto) 2.0, [place] # (Auto) 0.9, Eos # (Auto) 0.2, Baso # (Auto) 0.0, Sodium 133 L, Potassium 4.0, Chloride 103, Carbon Dioxide 24, Anion Gap 10.0, BUN 17, Creatinine 1.20, Estimated Creat Clear 99, Estimated GFR 63, Est GFR ( Amer) 76, Glucose 82, Calcium 10.5 H I & O for Last 24 hours: Intake & Output 04/17/23 04/18/23 04/19/23 04/20/23 11:59 11:59 11:59 11:59 Intake Total 3925 / 3925 5229 / 5229 Output Total 1800 / 1800 4450 / 4450 Balance 2125 / 2125 779 / 779 Weight 219 lb 0.997 oz 218 lb 4.122 oz Constitutional Constitutional: no acute distress *Routine Respiratory Exam Respiratory: Absent respiratory distress *Routine Cardiovascular Exam Cardiovascular: Absent tachycardia *Routine Abdominal Exam Comments: Diverting ileostomy bag with fluid and air. Incisions healing without evidence of infection. Progress Note: A&P Assessment and plan (1) Postoperative ileus: Status: Acute Assessment and plan: Air and fluid in ileostomy bag. Clear liquids without carbonation ordered Continue to increase ambulation (2) Post-operative pain: Status: Acute
--- NOTE | 2023-04-20 08:48 | PC.NURSE ---
ostomy bag full of air, burped bag; MD Sherman had taken down dressing on incisions with sutures during rounds, MD stated incisions can be KALA or covered and MD laid gauze pads gently over incisions, scant amount of sanguineous drainage noted on one gauze pad MD ordered clear liquid diet and stated pt can have hard candy and/or sugarless gum, pt's family brought in hard candy for pt
--- NOTE | 2023-04-20 12:02 | PC.NURSE ---
redresssed abdominal incisions per pt request
--- NOTE | 2023-04-20 13:00 | PC.NURSE ---
pt's oxygen saturations decreasing to 86-87% on 3LNC, increased to 4LNC and oxygen saturations 88-90%4LNC
--- NOTE | 2023-04-20 17:03 | EXP.PN ---
Subjective *Date: 04/20/23 *Time: 17:03 Interval history: Patient was seen and evaluated at the bedside. he does not have any complains today, denies chest pain, shortness of breath, nausea, vomiting, abdominal pain. feels better overall Exam Data for Last 24 hours Vital signs and Labs for Last 24 Hours: Temp Pulse Resp BP Pulse Ox O2 Del Method O2 Flow Rate 97.7 F 85 20 132/78 92 L Nasal Cannula 4 04/20/23 16:00 04/20/23 16:00 04/20/23 16:00 04/20/23 16:00 04/20/23 16:00 04/20/23 16:00 04/20/23 16:00 Laboratory Results - last 24 hr 04/20/23 06:50: WBC 11.3 H, RBC 4.28 L, Hgb 13.6 L, Hct 41.2 L, MCV 96.2 H, MCH 31.7 H, MCHC 33.0, RDW 13.8, Plt Count 162, MPV 8.7, Neut % (Auto) 73.1, Lymph % (Auto) 17.4, [place] % (Auto) 7.7, Eos % (Auto) 1.5, Baso % (Auto) 0.2, Neut # (Auto) 8.3 H, Lymph # (Auto) 2.0, [place] # (Auto) 0.9, Eos # (Auto) 0.2, Baso # (Auto) 0.0, Sodium 133 L, Potassium 4.0, Chloride 103, Carbon Dioxide 24, Anion Gap 10.0, BUN 17, Creatinine 1.20, Estimated Creat Clear 99, Estimated GFR 63, Est GFR ( Amer) 76, Glucose 82, Calcium 10.5 H Temp Pulse Resp BP Pulse Ox O2 Del Method O2 Flow Rate 97.6 F 87 18 101/62 L 97 Nasal Cannula 2 04/18/23 13:48 04/18/23 17:30 04/18/23 17:30 04/18/23 17:30 04/18/23 17:30 04/18/23 17:30 04/18/23 17:30 Laboratory Results - last 24 hr 04/18/23 07:55: Urine Color Yellow, Urine Appearance Clear, Urine pH 5.5, Ur Specific [place] 1.020, Urine Protein Negative, Urine Glucose (UA) Negative, Urine Ketones Negative, Urine Blood Trace-i, Urine Nitrate Negative, Urine Bilirubin Negative, Urine Urobilinogen 0.2, Ur Leukocyte Esterase Negative, Urine RBC Occasional, Urine WBC None, Ur Squamous Epith Cells Occasional, Hyaline Casts O I & O for Last 24 hours: Intake & Output 04/17/23 04/18/23 04/19/23 04/20/23 23:59 23:59 23:59 23:59 Intake Total 2671 / 2671 3883 / 5483 2960 / 2960 Output Total 900 / 900 3300 / 3700 2700 / 2700 Balance 1771 / 1771 583 / 1783 260 / 260 Weight 99.365 kg 99.365 kg 99 kg Intake & Output 04/15/23 04/16/23 04/17/23 04/18/23 23:59 23:59 23:59 23:59 Intake Total 1900 / 1900 Output Total 0 / 0 Balance 1900 / 1900 Weight 96.615 kg 99.365 kg Constitutional Constitutional: no acute distress *Routine HEENT Exam Head: Present normocephalic Eye: Present EOMI and PERRL ENT: Present mucous membranes moist *Routine Neck Exam Neck: Present supple; Absent lymphadenopathy *Routine Respiratory Exam Respiratory: Present CTA bilaterally *Routine Cardiovascular Exam Cardiovascular: Present RRR *Routine Abdominal Exam Abdominal: Absent tenderness Comments: abdomen has ileostomy bag attached and R side covered with dressing, tender *Routine Extremities Exam Extremities: Absent cyanosis, clubbing or edema *Routine Skin Exam Skin: Present warm; Absent rash *Routine Neurological Exam Neurological: Present alert and oriented X3 Assessment and Plan *Assessment and plan (1) Post-operative pain: Status: Acute Category: Medical Code(s): G89.18 - Other acute postprocedural pain (2) Primary hyperparathyroidism: Status: Acute Category: Medical Code(s): E21.0 - Primary hyperparathyroidism (3) Severe protein-calorie malnutrition: Status: Acute Category: Medical Code(s): E43 - Unspecified severe protein-calorie malnutrition (4) Tobacco use disorder: Status: Acute Category: Medical Code(s): F17.200 - Nicotine dependence, unspecified, uncomplicated (5) History of depression: Status: Acute Category: Medical Code(s): Z86.59 - Personal history of other mental and behavioral disorders (6) Hypertension: Status: Acute Category: Medical Code(s): I10 - Essential (primary) hypertension (7) Hypercalcemia: Status: Acute Category: Medical Code(s): E83.52 - Hypercalcemia Plan
--- NOTE | 2023-04-20 21:15 | PC.NURSE ---
Addendum entered by Ela Burnett RN 04/21/23 05:14: Patient had a good night. Sat up in the chair till around 2300. At the begning of the shift the patients lungs sounded extremely wet. RN had respiratory therapy also listen and they agreed with the assessment. RN notified Provider and a dose of lasix was given. Patient has voided multiple times since then. Lungs sounds on a second acultation at 4am was much better and were diminished but clear. Patient started on 4L NC when RN came on shift and we are down to 2L NC. RN educated patient on the importance of having good strong coughs. Using the IS at bedside while awake and the importance of movement to help lungs and abdomen. Patient has been nausea twice this shift, medicated per AUG. no other issues Original Note: pt was willing to try and walk with a walker. Patient stood up on his own but became dizzy and wanted to sit back down. We are currently up in the chair. Got in chair at 2014.
[2023-04-21] VITALS (14 sets, daily range): BP systolic 95–134; BP diastolic 64–86; PULSE 69–92; RESP 15–18; TEMP 36.5–37.1; O2SAT 90–98; BMI 30.5
--- NOTE | 2023-04-21 07:48 | XR_ITS ---
PROCEDURE INFORMATION: Exam: XR Chest Exam date and time: 04/21/2023 8:00 AM Age: 52 years old Clinical indication: Other: Hypoxia TECHNIQUE: Imaging protocol: Radiologic exam of the chest. Views: 1 view. COMPARISON: CR XR CHEST PORTABLE 04/20/2023 4:01 AM FINDINGS: Lungs: The lungs are underinflated. Basilar opacity in the left lung base likely representing atelectasis or infection is stable. Pleural spaces: Moderate left pleural effusion is stable since the prior study. Heart/Mediastinum: Unremarkable. No cardiomegaly. Bones/joints: Unremarkable. IMPRESSION: 1. The lungs are underinflated. Basilar opacity in the left lung base likely representing atelectasis or infection is stable. 2. Moderate left pleural effusion is stable since the prior study.
--- NOTE | 2023-04-21 07:58 | PC.NURSE ---
Morphine INFORMATION SECURITY RISK ANALYST intake 43.1
--- NOTE | 2023-04-21 08:25 | EXP.SURG.PN ---
Subjective Patient reports: no new complaints and tolerating liquids well Exam Data for Last 24 hours Vital signs and Labs for Last 24 Hours: Temp Pulse Resp BP Pulse Ox O2 Del Method O2 Flow Rate 98.8 F 81 18 95/65 L 92 L Nasal Cannula 2 04/21/23 04:00 04/21/23 08:00 04/21/23 08:00 04/21/23 08:00 04/21/23 08:00 04/21/23 08:00 04/21/23 08:00 FiO2 36 04/21/23 00:03 I & O for Last 24 hours: Intake & Output 04/18/23 04/19/23 04/20/23 04/21/23 11:59 11:59 11:59 10:59 Intake Total 3925 / 3925 5229 / 5229 1095 / 1095 Output Total 1800 / 1800 4800 / 4800 4625 / 4625 Balance 2125 / 2125 429 / 429 -3530 / -3530 Weight 219 lb 0.997 oz 218 lb 4.122 oz 218 lb 4.122 oz Constitutional Constitutional: no acute distress *Routine Respiratory Exam Respiratory: Absent respiratory distress Comments: Remains on nasal cannula oxygen with saturations between 88 and 92% *Routine Cardiovascular Exam Cardiovascular: Absent tachycardia *Routine Abdominal Exam Comments: Diverting loop ileostomy with significant air/fluid in bag. Midline incision and colostomy takedown incision continue to heal without evidence of infection. Progress Note: A&P Assessment and plan (1) Postoperative ileus: Status: Acute Assessment and plan: Persistent air and fluid in ileostomy bag. Full liquids without carbonation ordered Continue to increase ambulation (2) Hypoxia: Status: Acute Assessment and plan: Chest x-ray ordered. Continue incentive spirometer. Continue to increase ambulation. Further management as per hospital service. Assessment and Plan Assessment and Plan for All Diagnoses:: ECHOCARDIOGRAPH TECHNICIAN discontinued Hess[place] ordered
[2023-04-21 11:46] LABS: HBsAg Screen Negative (Negative); HCV Ab Non Reactive (Non Reactive); Hep A Ab, IGM Negative (Negative); Hep B Core Ab, IgM Negative (Negative)
--- NOTE | 2023-04-21 13:53 | EXP.PN ---
Subjective *Date: 04/21/23 *Time: 13:53 Interval history: Patient was seen and evaluated at the bedside. he does not have any complains today, denies chest pain, shortness of breath, nausea, vomiting, abdominal pain. feels better overall Exam Data for Last 24 hours Vital signs and Labs for Last 24 Hours: Temp Pulse Resp BP Pulse Ox O2 Del Method O2 Flow Rate 97.9 F 81 18 95/65 L 92 L Nasal Cannula 2 04/21/23 11:32 04/21/23 08:00 04/21/23 08:00 04/21/23 08:00 04/21/23 08:00 04/21/23 12:56 04/21/23 12:56 FiO2 36 04/21/23 00:03 Laboratory Results - last 24 hr 04/20/23 06:50: Hepatitis A IgM Ab Negative, Hep Bs Antigen Negative, Hep B Core IgM Ab Negative, Hepatitis C Antibody Non reactive Temp Pulse Resp BP Pulse Ox O2 Del Method O2 Flow Rate 97.6 F 87 18 101/62 L 97 Nasal Cannula 2 04/18/23 13:48 04/18/23 17:30 04/18/23 17:30 04/18/23 17:30 04/18/23 17:30 04/18/23 17:30 04/18/23 17:30 Laboratory Results - last 24 hr 04/18/23 07:55: Urine Color Yellow, Urine Appearance Clear, Urine pH 5.5, Ur Specific Adrian 1.020, Urine Protein Negative, Urine Glucose (UA) Negative, Urine Ketones Negative, Urine Blood Trace-i, Urine Nitrate Negative, Urine Bilirubin Negative, Urine Urobilinogen 0.2, Ur Leukocyte Esterase Negative, Urine RBC Occasional, Urine WBC None, Ur Squamous Epith Cells Occasional, Hyaline Casts O I & O for Last 24 hours: Intake & Output 04/18/23 04/19/23 04/20/23 04/21/23 23:59 23:59 23:59 22:59 Intake Total 2671 / 2671 3883 / 5483 3402 / 3652 833 / 833 Output Total 900 / 900 3300 / 3700 5325 / 5925 2100 / 2100 Balance 1771 / 1771 583 / 1783 -1923 / -2273 -1267 / -1267 Weight 99.365 kg 99.365 kg 99 kg 99 kg Intake & Output 10/30/23 10/31/23 11/01/23 11/02/23 23:59 23:59 23:59 23:59 Intake Total 1899 / 1899 Output Total 0 / 0 Balance 1899 / 1899 Weight 96.615 kg 99.365 kg Constitutional Constitutional: no acute distress *Routine HEENT Exam Head: Present normocephalic Eye: Present EOMI and PERRL ENT: Present mucous membranes moist *Routine Neck Exam Neck: Present supple; Absent lymphadenopathy *Routine Respiratory Exam Respiratory: Present CTA bilaterally *Routine Cardiovascular Exam Cardiovascular: Present RRR *Routine Abdominal Exam Abdominal: Absent tenderness Comments: abdomen has ileostomy bag attached and R side covered with dressing, tender *Routine Extremities Exam Extremities: Absent cyanosis, clubbing or edema *Routine Skin Exam Skin: Present warm; Absent rash *Routine Neurological Exam Neurological: Present alert and oriented X3 Assessment and Plan *Assessment and plan (1) Post-operative pain: Status: Acute Category: Medical Code(s): G89.18 - Other acute postprocedural pain (2) Primary hyperparathyroidism: Status: Acute Category: Medical Code(s): E21.0 - Primary hyperparathyroidism (3) Severe protein-calorie malnutrition: Status: Acute Category: Medical Code(s): E43 - Unspecified severe protein-calorie malnutrition (4) Tobacco use disorder: Status: Acute Category: Medical Code(s): F17.200 - Nicotine dependence, unspecified, uncomplicated (5) History of depression: Status: Acute Category: Medical Code(s): Z86.59 - Personal history of other mental and behavioral disorders (6) Hypertension: Status: Acute Category: Medical Code(s): I10 - Essential (primary) hypertension (7) Hypercalcemia: Status: Acute Category: Medical Code(s): E83.52 - Hypercalcemia Plan Patient is a 52-year-old male with past medical history of CKD hypertension, sigmoid colon resection for inflammatory mass who presented to hospital for colostomy reversal procedure. At time of my evaluation patient is status post surgery, complains of abdominal pain at the site of surgery otherwise denies shortness of breat
[2023-04-21 14:35] LABS: Lactic Acid 1.1 mmol/L (0.7-2.1)
--- NOTE | 2023-04-21 14:58 | PC.NURSE ---
Pt has ambulated in the hallway with standby assistance. GENERAL TELLER pump DC. Pt has tolerated PO pain medication. Has been up to chair this afternoon. BS active. Voids per urinal. Call light within reach. Family visited today.
--- NOTE | 2023-04-21 17:48 | PC.NURSE ---
Pt ambulated one lap around med surg floor this evening and tolerated well. He is currently sitting up in bed tolerating full liquid diet. Call light within reach.
[2023-04-22] VITALS (10 sets, daily range): BP systolic 97–118; BP diastolic 68–88; PULSE 60–75; RESP 12–20; TEMP 36.5–36.8; O2SAT 93–95; BMI 30.7
--- NOTE | 2023-04-22 04:39 | PC.NURSE ---
Pt AOx4, requiring minimal assistance, and sleeping throughout most of shift. Pt able to notify RN for PRN pain medication, tolerating well. Pt's ileostomy bag and waffle were changed at beginning of shift by pt with minimal RN assistance, bag still in place, stoma red and WNL with brown-green liquid drainage. Bag checked approximately Q4 hrs or per pt request. Pt able to be weaned down to 1 L NC, SpO2 93-94% while asleep. No acute issues overnight.
--- NOTE | 2023-04-22 12:10 | EXP.SURG.PN ---
Subjective Narrative: Patient doing well. Tolerating full liquid diet. Ileostomy functioning. No nausea. Has had some oxygen requirements but this is decreasing. Patient actually wants to go home. Exam Data for Last 24 hours Vital signs and Labs for Last 24 Hours: Temp Pulse Resp BP Pulse Ox O2 Del Method O2 Flow Rate 97.7 F 71 20 113/72 93 L Nasal Cannula 1 04/22/23 11:16 04/22/23 10:00 04/22/23 10:00 04/22/23 10:00 04/22/23 10:00 04/22/23 11:00 04/22/23 11:00 FiO2 28 04/21/23 17:35 Laboratory Results - last 24 hr 04/21/23 14:18: Lactate 1.1 I & O for Last 24 hours: Intake & Output 04/20/23 04/21/23 04/22/23 04/23/23 12:59 11:59 11:59 11:59 Intake Total 1460 / 1460 Output Total 3350 / 3350 Balance -1890 / -1890 Weight 219 lb 5.759 oz Microbiology Reports for the Last 24 Hours: Microbiology 04/18/23 18:40 Blood Blood Culture - Preliminary 04/18/23 18:30 Blood Blood Culture - Preliminary *Routine Abdominal Exam Abdominal: Present soft Comments: Incision clean. Some minor tenderness. Progress Note: A&P Assessment and plan (1) Post-operative pain: Status: Acute (2) Primary hyperparathyroidism: Status: Acute (3) Severe protein-calorie malnutrition: Status: Acute (4) Tobacco use disorder: Status: Acute (5) History of depression: Status: Acute (6) Hypertension: Status: Acute (7) Hypercalcemia: Status: Acute Assessment and Plan Assessment and Plan for All Diagnoses:: Reasonable for discharge home. I will see how he does on room air awake.
--- NOTE | 2023-04-22 12:16 | PC.NURSE ---
Ok to transfer out of stepdown per Dr Marshall. order per dr marshall for [place] diet [id number]
--- NOTE | 2023-04-22 12:23 | EXP.DC.SUM ---
General Admission date:: 04/18/23 HPI HPI HPI: Patient is a 52-year-old male with history of pituitary dysfunction, hypertension, hypercalcemia secondary to primary hyperparathyroidism status post parathyroidectomy, chronic tobacco abuse who presents for surgery for laparotomy with colostomy takedown. He is a 52-year-old who had developed symptoms consistent with partial distal large bowel obstruction beginning in approximately 2020. He had undergone thorough evaluation at outside facility without clear etiology. In 2021 I had seen him and evaluated thoroughly. Ultimately plan was made for sigmoid colon resection. 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 He did have a proximal diverting loop ileostomy performed at that time with distal colon anastomosis. Pathology regarding distal sigmoid colon revealed diverticulitis with associated peridiverticular abscess with serosal fibrosis. However, the patient did develop anastomotic leak and had return to the operating room on postoperative day #2 at which time he was found to have appreciable feculent peritonitis and he underwent thorough washout with creation of end colostomy in addition to his loop ileostomy. He had prolonged convalescence following that and ultimately was discharged on 01/12/2022 [facility]. Patient did develop an intra-abdominal abscess after discharge which required drainage at [facility]. He has been followed in the office regularly. Patient has undergone parathyroidectomy and right thyroid lobectomy by ENT. He has had some problems with recurrent soft tissue infection in the peristomal location and in the midline usually treated without operative intervention. Arrangements are being made for possible colostomy takedown. Patient underwent cannulation of the distal limb of the ileostomy on 12/24/2022 with administration of bowel prep to the mucous fistula. He actually had developed some dehydration and renal insufficiency requiring admission following that. He did undergo colonoscopy the the of the left abdominal colostomy on 03/01/2023. There was some stool in the right colon and some inspissated mucus. With thorough trans colonoscopic irrigation this was all able to be cleared. Colonoscopy via the anus revealed rectosigmoid stump at approximately 18 cm and inspissated mucus which was evacuated. Tentative plan has been for colostomy takedown leaving the ileostomy in place until assurance of healing and absence of leak. Hospital Course Hospital Course Hospital Course: Patient was taken to the operating room on 04/18/2023 at which time he underwent extensive lysis of adhesions via laparotomy and takedown of colostomy with pelvic anastomosis using 29 mm EEA stapling device. There were extensive intra-abdominal adhesions. There was some diverticulosis in the descending colon. There was chronic elongated abscess in the right abdomen superior to the loop ileostomy which was excised. This was previously noted on CT scan. Please see operative dictation for complete details. He was admitted for inpatient management initially to the stepdown unit. Consultation was obtained with the hospitalist service for medical management. On postoperative day #1 patient had some findings consistent with ileus with some nausea and limited output from the loop ileostomy. He was limited to ice chips. He has Segura catheter removed on postop day #1. On postoperative day #2 patient stated that he was quite hungry. Ileostomy began functioning. He was given clear liquid diet. Ambulation was encouraged and increased. On postoperative day #3 he continued to do well and diet was advanced to full liquid which she tolerated without difficulty. He was ambulating well. He did have some diminished oxygen saturations and required some minimal supplemental oxygen which was ultimatel
--- NOTE | 2023-04-22 16:52 | EXP.ACUTE.PN ---
Subjective *Date: 04/22/23 *Time: 17:14 Interval history: Patient seen this morning. Afebrile and hemodynamically stable. Tolerating advancement of diet. Blood pressure well controlled. Having output from ostomy Medical Exam Vital signs and Labs for Last 24 Hours: Vital Signs Temp Pulse Pulse Resp BP Pulse Ox O2 Del Method 04/22/23 12:00 75 04/22/23 13:00 Room Air 04/22/23 12:46 93 L Room Air 04/22/23 12:00 71 20 113/88 95 Room Air 04/22/23 11:00 Nasal Cannula 04/22/23 11:16 97.7 F 04/22/23 10:00 71 20 113/72 93 L Nasal Cannula 04/22/23 08:00 70 04/22/23 08:50 Nasal Cannula 04/22/23 08:00 74 95 Nasal Cannula 04/22/23 08:00 74 18 101/69 L 95 Nasal Cannula 04/22/23 07:31 97.8 F 04/22/23 07:00 Nasal Cannula 04/22/23 05:55 68 12 111/83 95 Nasal Cannula 04/22/23 04:00 60 04/22/23 00:00 60 04/22/23 05:00 Nasal Cannula 04/22/23 04:00 97.7 F 70 12 118/85 94 L Nasal Cannula 04/22/23 04:00 94 L Nasal Cannula 04/22/23 03:00 Nasal Cannula 04/22/23 02:00 64 12 97/68 L 95 Nasal Cannula 04/22/23 01:00 Nasal Cannula 04/22/23 00:00 98.2 F 60 12 117/75 94 L Nasal Cannula 04/21/23 23:00 Nasal Cannula 04/21/23 22:00 92 H 18 100/64 L 97 Nasal Cannula 04/21/23 21:00 Nasal Cannula 04/21/23 20:30 Nasal Cannula 04/21/23 20:00 97.7 F 78 18 127/68 95 Nasal Cannula 04/21/23 20:00 80 04/21/23 18:52 Nasal Cannula 04/21/23 18:00 77 18 116/72 91 L Nasal Cannula 04/21/23 17:00 Nasal Cannula 04/21/23 17:35 Nasal Cannula O2 Flow Rate FiO2 04/22/23 12:00 04/22/23 13:00 04/22/23 12:46 04/22/23 12:00 04/22/23 11:00 1 04/22/23 11:16 04/22/23 10:00 1 04/22/23 08:00 04/22/23 08:50 1 04/22/23 08:00 1 04/22/23 08:00 1 04/22/23 07:31 04/22/23 07:00 1 04/22/23 05:55 1 04/22/23 04:00 04/22/23 00:00 04/22/23 05:00 1 04/22/23 04:00 1 04/22/23 04:00 1 04/22/23 03:00 1 04/22/23 02:00 1 04/22/23 01:00 1 04/22/23 00:00 1 04/21/23 23:00 1 04/21/23 22:00 2 04/21/23 21:00 2 04/21/23 20:30 2 04/21/23 20:00 2 04/21/23 20:00 04/21/23 18:52 2 04/21/23 18:00 2 04/21/23 17:00 2 04/21/23 17:35 2 28 Intake and Output 04/22/23 04/22/23 04/22/23 07:59 15:59 23:59 Intake Total 440 / 1190 750 / 1190 Output Total 1100 / 1400 300 / 1400 Balance -660 / -210 450 / -210 Intake: Intake, Oral Amount 240 / 990 750 / 990 Intake, Total IV Amount 200 / 200 Ampicillin Sodium/Sulbactam 3 200 / 200 gm In 0.9 % Sodium Chloride 100 ml @ 200 mls/hr IV Q6H [facility] Rx# :[id number] Output: Output, Urine Amount 800 / 1100 300 / 1100 Output, Stool Amount 300 / 300 Other: Weight 99.5 kg 99.5 kg Patient Weight 04/22/23 23:59 Weight 99.5 kg I & O for Labs for Last 24 Hours: Intake & Output 04/20/23 04/21/23 04/21/23 04/22/23 00:59 00:59 23:59 23:59 Intake Total 1190 / 1190 Output Total 1400 / 1400 Balance -210 / -210 Weight 99.5 kg Microbiology Reports for the Last 24 Hours: Microbiology 04/18/23 18:40 Blood Blood Culture - Preliminary 04/18/23 18:30 Blood Blood Culture - Preliminary Constitutional: Present no acute distress, chronically ill appearing and cooperative Head: Present atraumatic and normocephalic ENT: Present normal exam Neck: Present normal inspection Respiratory: Present CTA bilaterally; Absent rhonchi, wheezes or crackles Cardiac: Present Reg Rate and Rhythm GI: Present soft, tenderness (diffuse, mild) and other (Colostomy in place) Comments:: Incision clean dry and intact Extremities: Absent edema Skin: Present intact Neuro: Present alert, awake and moves all extremities Assessment and Plan *Assessment and plan (1) Post-operativ
--- NOTE | 2023-04-23 15:20 | CARE MANAGER ---
Called and spoke with patient regarding recent discharge. He states that he was able to worm picker medication that was prescribed at discharge. We reviewed his scheduled f/u appt. No concerns voiced at time of call.
--- NOTE | 2023-04-29 13:56 | EXP.DC.SUM ---
General Admission date:: 04/26/23 Discharge date: 04/29/23 HPI HPI HPI: Patient is a 52-year-old male with history of pituitary dysfunction, hypertension, hypercalcemia secondary to primary hyperparathyroidism status post parathyroidectomy, chronic tobacco abuse who presents for surgery for laparotomy with colostomy takedown. He is a 52-year-old who had developed symptoms consistent with partial distal large bowel obstruction beginning in approximately 2020. He had undergone thorough evaluation at outside facility without clear etiology. In 2021 I had seen him and evaluated thoroughly. Ultimately plan was made for sigmoid colon resection. 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 He did have a proximal diverting loop ileostomy performed at that time with distal colon anastomosis. Pathology regarding distal sigmoid colon revealed diverticulitis with associated peridiverticular abscess with serosal fibrosis. However, the patient did develop anastomotic leak and had return to the operating room on postoperative day #2 at which time he was found to have appreciable feculent peritonitis and he underwent thorough washout with creation of end colostomy in addition to his loop ileostomy. He had prolonged convalescence following that and ultimately was discharged on 01/12/2022 [facility]. Patient did develop an intra-abdominal abscess after discharge which required drainage at [facility]. He has been followed in the office regularly. Patient has undergone parathyroidectomy and right thyroid lobectomy by ENT. He has had some problems with recurrent soft tissue infection in the peristomal location and in the midline usually treated without operative intervention. Arrangements are being made for possible colostomy takedown. Patient underwent cannulation of the distal limb of the ileostomy on 12/24/2022 with administration of bowel prep to the mucous fistula. He actually had developed some dehydration and renal insufficiency requiring admission following that. He did undergo colonoscopy the the of the left abdominal colostomy on 03/01/2023. There was some stool in the right colon and some inspissated mucus. With thorough trans colonoscopic irrigation this was all able to be cleared. Colonoscopy via the anus revealed rectosigmoid stump at approximately 18 cm and inspissated mucus which was evacuated. Tentative plan has been for colostomy takedown leaving the ileostomy in place until assurance of healing and absence of leak. Exam Data for Last 24 hours Vital signs and Labs for Last 24 Hours: Temp Pulse Resp BP Pulse Ox O2 Del Method O2 Flow Rate 97.7 F 71 20 113/88 93 L Room Air 1 04/22/23 11:16 04/22/23 12:00 04/22/23 12:00 04/22/23 12:00 04/22/23 12:46 04/22/23 13:00 04/22/23 11:00 FiO2 28 04/21/23 17:35 DS: Diagnosis Discharge Diagnosis (1) Post-operative pain: Status: Deleted Code(s): G89.18 - Other acute postprocedural pain (2) Primary hyperparathyroidism: Status: Inactive Code(s): E21.0 - Primary hyperparathyroidism (3) Severe protein-calorie malnutrition: Status: Inactive Code(s): E43 - Unspecified severe protein-calorie malnutrition (4) Tobacco use disorder: Status: Inactive Code(s): F17.200 - Nicotine dependence, unspecified, uncomplicated (5) History of depression: Status: Inactive Code(s): Z86.59 - Personal history of other mental and behavioral disorders (6) Hypertension: Status: Inactive Code(s): I10 - Essential (primary) hypertension (7) Hypercalcemia: Status: Inactive Code(s): E83.52 - Hypercalcemia Meds Home Medications and Allergies Home Medications Medication Instructions Recorded Confirmed Type ondansetron HCl 4 mg tablet 4 mg PO Q8HP PRN Nausea 12/24/2204/26
== END 2023-04-22 14:26 | disposition home or self-care (01) | DRG 329 ==
LOC: 2ND 13:23
PROVIDERS: Internal Medicine; Admitting Provider Surgery; PCP Family Medicine; Visit Provider Surgery
PROC: 0DNW0ZZ Release Peritoneum, Open Approach (ICD-10-PCS; CPT 44620; principal; 2023-04-18 07:30)
DX: Z43.3 Encounter for attention to colostomy (principal); K65.1 Peritoneal abscess; K56.7 Ileus, unspecified; K91.89 Other postprocedural complications and disorders of digestive system; E83.52 Hypercalcemia; E21.2 Other hyperparathyroidism; F32.A Depression, unspecified; E78.5 Hyperlipidemia, unspecified; K21.9 Gastro-esophageal reflux disease without esophagitis; G47.00 Insomnia, unspecified; F17.210 Nicotine dependence, cigarettes, uncomplicated; K57.90 Diverticulosis of intestine, part unspecified, without perforation or abscess without bleeding; N18.30 Chronic kidney disease, stage 3 unspecified; Y83.8 Other surgical procedures as the cause of abnormal reaction of the patient, or of later complication, without mention of misadventure at the time of the procedure; Z68.30 Body mass index [BMI] 30.0-30.9, adult; I12.9 Hypertensive chronic kidney disease with stage 1 through stage 4 chronic kidney disease, or unspecified chronic kidney disease; Z93.2 Ileostomy status
CPT/HCPCS: 44620; 49999; 44005; 36415; 71045; 80048; 80053; 80074; 81001; 83605; 85025; 86850; 87040; 96374; J2405

== ENCOUNTER 2023-04-26 08:10 | Inpatient (IN) | payer OTHER, SELFPAY ==
[2023-04-26] VITALS (10 sets, daily range): BP systolic 111–149; BP diastolic 71–91; PULSE 70–102; RESP 16–19; TEMP 36.7–37; O2SAT 95–97; BMI 29.7; BMI 28.6
--- NOTE | 2023-04-26 08:25 | HMH.EDGENADL ---
Discharge Plan Disposition Patient Disposition: Admitted Chief Complaint: Nausea/Vomiting/Diarrhea Prescriptions Prescriptions: No Action lisinopril 5 mg tablet 5 mg PO DAILY ondansetron HCl 4 mg tablet 4 mg PO Q8HP PRN (Reason: Nausea) melatonin 5 mg Tablet 5 mg PO HSP PRN (Reason: Sleep) amitriptyline 25 mg tablet 25 mg PO DAILY hydrocodone-acetaminophen 5-325 mg Tablet 1 - 2 tab PO Q6H PRN (Reason: Pain) Qty: 21 0RF Referrals Follow up/Referrals: Brandy Ramírez [Primary Care Provider] - See instructions Clinical Impressions Clinical Impression: Complete obstruction of small intestine, Ileus Instructions Patient Instructions: DI for Diarrhea and Traveler's Diarrhea -- Adult, DI for Diarrhea and Traveler's Diarrhea -- Child, DI for Nausea -- Adult, DI for Nausea -- Child Discharge ED Provider: Gokul Sahu General Adult HPI General Chief complaint: Nausea/Vomiting/Diarrhea Stated complaint: post op11/2, vomiting, diarrhea, back pain Time Seen by Provider: 04/26/23 08:19 History of Present Illness HPI narrative: 52-year-old male with history of pituitary dysfunction, hypertension, hypercalcemia s/p parathyroidectomy, chronic tobacco abuse, sigmoid colon resection November 2021 secondary to mass, and lysis of adhesions/ostomy takedown with anastomosis on 04/22/2023 presenting with multiple complaints. Patient states that since the sixth, when he had surgery, he has had persistent nausea and minimal ostomy output. Has not had anything out per rectum. He started having a fever over 100.51-day prior to arrival associated with his abdominal pain. Abdominal pain is 8 out of 10, does not radiate, diffuse, but primarily around his left lower quadrant incisional site. Started having dark, musty green, vomit yesterday evening, 04/25. Came to the ER for further evaluation. Related Data Home Medications Medication Instructions Recorded Confirmed ondansetron HCl 4 mg tablet 4 mg PO Q8HP PRN Nausea 12/24/22 04/18/23 melatonin 5 mg tablet 5 mg PO HSP PRN Sleep 12/25/22 04/18/23 lisinopril 5 mg tablet 5 mg PO DAILY High Blood Pressure 01/10/23 04/18/23 amitriptyline 25 mg tablet 25 mg PO DAILY Mood 04/18/23 04/18/23 Previous Rx's Medication Instructions Recorded hydrocodone 5 mg-acetaminophen 325 1 - 2 tab PO Q6H PRN Pain #21 tabs 04/22/23 mg tablet Allergies Allergy/AdvReac Type Severity Reaction Status Date / Time aspirin Allergy Verified 04/18/23 06:21 codeine Allergy Verified 04/18/23 06:21 [facility] Disclaimer: The information contained in this section may have been updated after the patient was seen, as this information can be updated by other users. Medical History ARIELLA (acute kidney injury) Colostomy in place Dehisced intestinal anastomosis Depressed Depression Dyspnea on exertion Dyspnea on exertion GERD (gastroesophageal reflux disease) History of pleural effusion HLD (hyperlipidemia) Hypercalcemia Hyperlipemia Hypertension Ileostomy in place Would benefit from convex appliance, appropriate size. Insomnia Intra-abdominal abscess post-procedure Mass of colon Parathyroid adenoma Physical deconditioning Pleural effusion Smoking greater than 30 pack years Thyroid disorder Thyroid Nodule Vasectomy planned Surgical History History of colonoscopy History of partial thyroidectomy History of vasectomy Hx of parathyroidectomy removed 2 Status post partial colectomy Family History Other No significant family history Social History (Updated 04/18/23 @ 14:13 by Vashti Chou RN) Smoking Status: Current every day smoker tobacco type: cigarettes packs per day: 1 years smoked: 40 alcohol intake: never substance use type: former substance user and crack/cocaine
--- NOTE | 2023-04-26 08:28 | CT_ITS ---
FINAL REPORT TECHNIQUE: Thin section axial images were obtained through the abdomen after intravenous contrast. Reconstruction images were obtained from the axial data. Exam was performed using dose reduction techniques. CLINICAL HISTORY: recent abd surgery, abd pain and vomiting COMPARISON: 03/13/2023 FINDINGS: There is atelectasis in the bilateral lung bases. There is fatty infiltration of the liver. The small peripherally enhancing lesion posterior to the inferior right lobe of the liver measures 15 mm is slightly smaller than previous. The lesion seen previously along the dome is no longer present. The gallbladder is present. The spleen, adrenal glands, and pancreas are unremarkable. Hypodense right renal lesions are unchanged. Now, there are dilated small bowel loops in the abdomen and pelvis. Loop in the left upper quadrant measures 4.7 cm. There are decompressed distal loops. The transition point is not well identified, likely in the left lower quadrant. There is a small amount of free fluid in the abdomen. The colon is completely decompressed. Right lower quadrant ostomy is again noted. Left lower quadrant ostomy is no longer seen. There are multiple small mesenteric lymph nodes which are stable. There is no abdominal free air. There is a fluid collection and air in the anterior abdominal wall measuring 5.3 cm in anterior to posterior dimension but extends at least 10 cm in craniocaudal dimension. No acute osseous abnormalities identified. IMPRESSION: Findings concerning for small-bowel obstruction. Transition point is likely in the left lower quadrant. Improved hypodense lesions along the surface of the liver, likely peritoneal abscesses. Interval left lower quadrant ostomy take-down with air and fluid collections in the anterior abdominal wall, may represent evolving abscesses. Reviewed, Interpreted and Dictated by Anamaria Lee MD Transcribed by Minal Loving Authenticated and [facility]
--- NOTE | 2023-04-26 08:28 | XR_ITS ---
FINAL REPORT CLINICAL HISTORY: upright - eval for free air COMPARISON: 04/21/2023 FINDINGS: A portable view of the chest was obtained. Cardiac and mediastinal silhouettes are within normal limits. The lungs are clear. There is no pleural effusion or pneumothorax. IMPRESSION: No acute process on this portable exam. Reviewed, Interpreted and Dictated by Anamaria Lee MD Transcribed by Minal Loving Authenticated and [facility]
[2023-04-26 08:42] LABS: VBG Base Excess 1.4 mmol/L (-2.4-2.3); VBG HCO3 26.8 mmol/L (23-30); VBG Oxygen Saturation 46.7 % (50-70); VBG PCO2 47.7 mmol/L (35-51); VBG PH 7.37 mmol/L (7.31-7.41); VBG PO2 24.9 mmol/L (28-40); VBG Total CO2 28.2 mmol/L (23-27)
[2023-04-26 08:50] LABS: Alanine Aminotransferase 31 U/L (12-78); Albumin Level 4.6 g/dl (3.5-5.0); Alkaline Phosphatase 138 U/L (38-126); Anion Gap 15.8 mEq/L (5-15); Aspartate Amino Transferase 43 U/L (17-59); Basophils # 0.1 K/mm3 (0-0.2); Basophils % 0.6 % (0.1-2.0); Bilirubin,Total 0.8 mg/dl (0.2-1.3); Blood Urea Nitrogen 22 mg/dl (9-20); Calcium 11.5 mg/dl (8.4-10.2); Carbon Dioxide 31 mmol/L (22.0-30.0); Chloride 95 mmol/L (98-107); Creatinine Clearance Estimated 61 mL/min (50-200); Eosinophils # 0.2 K/mm3 (0.0-0.4); Eosinophils % 1.9 % (0.1-12.0); Estimated Glomerular Filt Rate 37 ml/min (>60); GFR (African American) 45 ML/MIN (>60); Globulin 4.7 g/dL (1.3-3.2); Glucose 134 mg/dl (74-100); Hematocrit 46.9 % (42.0-52.0); Hemoglobin 16.2 g/dL (14.1-18.0); Lipase 342 U/L (23-300); Lymphocytes # 2.4 K/mm3 (0.7-4.5); Lymphocytes % 18.7 % (10-50); Mean Corpuscular HGB Conc 34.6 g/dL (31.8-35.4); Mean Corpuscular Hemoglobin 32.5 pg (27.0-31.2); Mean Platelet Volume 8.8 fl (7.4-10.4); Monocytes % 7.6 % (1.7-9.3); Neutrophils # 9.1 K/mm3 (1.8-7.8); Neutrophils % 71.2 % (37.0-80.0); Platelet Count 348 K/mm3 (142-424); Potassium 3.8 mmoL/L (3.5-5.1); Red Blood Count 4.99 M/mm3 (4.60-6.20); Red Cell Distribution Width 13.3 % (11.5-17.5); Sodium 138 mmol/L (136-145); Total Protein,Serum 9.3 g/dl (6.3-8.2); White Blood Count 12.7 K/mm3 (4.8-10.8)
[2023-04-26 08:53] LABS: Lactic Acid 1.7 mmol/L (0.7-2.1)
--- NOTE | 2023-04-26 08:56 | PC.NURSE ---
Patient gone to radiology.
--- NOTE | 2023-04-26 09:09 | PC.NURSE ---
Patient back from [facility]
[2023-04-26 09:34] LABS: Troponin I < 0.01 ng/ml (0.00-0.034)
--- NOTE | 2023-04-26 09:52 | PC.NURSE ---
Second set of BC sent at this time.
[2023-04-26 10:18] LABS: Microscopic, Urine URINE MICROSCOPIC (MICROSCOPIC)
[2023-04-26 10:28] LABS: Appearance,Urine CLEAR (Clear); Blood, Urine TRACE-I (Negative); Color,Urine AMBER (Yellow); Glucose,Urine (UA) Negative (Negative); Ketones,Urine Negative (Negative); Leukocyte Esterase,Urine Negative (Negative); Nitrate,Urine Negative (Negative); Protein,Urine TRACE (Negative); Specific Gravity, Urine >= 1.030 (1.005-1.030); Urobilinogen,Urine 0.2 EU/dl (0.2)
--- NOTE | 2023-04-26 10:43 | XR_ITS ---
FINAL REPORT CLINICAL HISTORY: NG placement COMPARISON: 04/26/2023 FINDINGS: A portable view of the chest was obtained. Cardiac and mediastinal silhouettes are within normal limits. There are low lung volumes. There is no pleural effusion or pneumothorax. New NG tube courses below the diaphragm. IMPRESSION: NG tube as above. Reviewed, Interpreted and Dictated by Anamaria Lee MD Transcribed by Minal Loving Authenticated and [facility]
--- NOTE | 2023-04-26 10:48 | PC.NURSE ---
notified care management of admission
--- NOTE | 2023-04-26 10:48 | PC.NURSE ---
rad at BS for portable xray
--- NOTE | 2023-04-26 10:52 | PC.NURSE ---
NG tube placed at this time waiting xray confirmation.
--- NOTE | 2023-04-26 11:09 | PC.NURSE ---
Report called to DANIA Barron
[2023-04-26 11:20] LABS: Bilirubin,Urine Negative (Negative)
[2023-04-26 11:21] LABS: Bacteria,Urine Trace /lpf; Squamous Epithelial Cell,Urine Occasional #/hpf (0-5); WBC,Urine Occasional #/hpf (0-3)
--- NOTE | 2023-04-26 11:32 | PC.NURSE ---
arrived by w/c from ED
[2023-04-26 13:00] LABS: Troponin I < 0.01 ng/ml (0.00-0.034)
--- NOTE | 2023-04-26 14:02 | HMH.PHAINT1 ---
Pharmacy Intervention Comments: MEDICATION RECONCILIATION COMPLETE USING LIST FROM RECENT HOSPITAL DISCHARGE AND EXTERNAL PHARMACY FILL HISTORY.
--- NOTE | 2023-04-26 15:08 | EXP.GEN.HP ---
HPI HPI HPI: Patient is a 52-year-old male well-known to me. He had developed symptoms consistent with partial distal large bowel obstruction beginning about 2 years ago. 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 He did have a proximal diverting loop ileostomy performed at that time with distal colonic anastomosis. His postoperative course was complicated by anastomotic failure of the pelvic anastomosis with return to the operating room at which time he was found to have appreciable feculent peritonitis and underwent thorough washout with creation of end colostomy in addition to his diverting loop ileostomy. He had a prolonged complicated course. Consideration was being given for possible takedown. He underwent endoscopic evaluation of his defunctionalized colon with planned anastomosis. Patient was taken to the operating room and underwent laparotomy with takedown of the defunctionalized colostomy with pelvic anastomosis on 04/18/2023. Diverting loop ileostomy remained to protect the pelvic anastomosis. Patient actually did quite well postoperatively. He was discharged home on 03/22/2023. Patient states that he was feeling well until the evening of 04/25/2023 at which time he developed nausea with vomiting. He presented to the emergency department this morning on 04/26/2023. Evaluation included noncontrast CT scan which revealed findings of possible small bowel obstruction. Patient has not noticed any decreased output from his ileostomy. He had a nasogastric tube placed with significant aspirate. Surgery was contacted and plan was made for inpatient management. [facility] Disclaimer: The information contained in this section may have been updated after the patient was seen, as this information can be updated by other users. Medical History ARIELLA (acute kidney injury) Colostomy in place Dehisced intestinal anastomosis Depressed Depression Dyspnea on exertion Dyspnea on exertion GERD (gastroesophageal reflux disease) History of pleural effusion HLD (hyperlipidemia) Hypercalcemia Hyperlipemia Hypertension Ileostomy in place Would benefit from convex appliance, appropriate size. Insomnia Intra-abdominal abscess post-procedure Mass of colon Parathyroid adenoma Physical deconditioning Pleural effusion Smoking greater than 30 pack years Thyroid disorder Thyroid Nodule Vasectomy planned Surgical History History of colonoscopy History of partial thyroidectomy History of vasectomy Hx of parathyroidectomy removed 2 Status post partial colectomy Family History Other No significant family history Social History (Updated 04/26/23 @ 11:53 by Cynthia Pierre RN) Smoking Status: Current every day smoker tobacco type: cigarettes packs per day: 1 years smoked: 40 alcohol intake: never substance use type: former substance user and crack/cocaine current occupational status: unemployed Travel in the last 8 weeks: None household members: none housing: house lives independently: Yes marital status: education level: college service: Yes fpc: No current occupational exposures/hazards: No caffeine: Yes special laith needs: No agree to transfusion: No do you feel safe at home: Yes victim of physical abuse: No victim of emotional abuse: No victim of sexual abuse: No would you like helpful sources: No Review of Systems Review of Systems Review of systems:: pertinent systems reviewed and negative unless documented below Meds Home Medications and Allergies Home Medications Medication Instructions Recorded Confirmed Type ondansetron HCl 4 mg tablet 4 mg PO Q8HP PRN Nausea 12/24/22
[2023-04-26 15:58] LABS: Troponin I 0.02 ng/ml (0.00-0.034)
--- NOTE | 2023-04-26 16:52 | EXP.MED.CON ---
History of Present Illness *Admission Date: 04/26/23 *Reason for visit:: diarrhea, nausea *History of present illness: Patient is a 52-year-old male recently admitted to [facility] for ex lap with lysis of adhesions and takedown of colostomy with pelvic anastomosis. Was discharged home earlier this week with adequate output from his ileostomy and tolerance of p.o. intake. Presented to the ER today due to increased abdominal distention, pain, nausea and vomiting. Was having decreased output from his ileostomy but no william lack of output. NG placed in the ER, decompression achieved. Patient noted to have ARIELLA, mild leukocytosis, and hypercalcemia. Surgery was consulted, patient admitted to their service for further management. Medicine consulted to assist with comanagement of medical conditions. History per surgical documentation as follows: He had developed symptoms consistent with partial distal large bowel obstruction beginning about 2 years ago. 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 He did have a proximal diverting loop ileostomy performed at that time with distal colonic anastomosis. His postoperative course was complicated by anastomotic failure of the pelvic anastomosis with return to the operating room at which time he was found to have appreciable feculent peritonitis and underwent thorough washout with creation of end colostomy in addition to his diverting loop ileostomy. He had a prolonged complicated course. Consideration was being given for possible takedown. He underwent endoscopic evaluation of his defunctionalized colon with planned anastomosis. Patient was taken to the operating room and underwent laparotomy with takedown of the defunctionalized colostomy with pelvic anastomosis on 04/18/2023. Diverting loop ileostomy remained to protect the pelvic anastomosis. Patient actually did quite well postoperatively. He was discharged home on 03/22/2023. Patient states that he was feeling well until the evening of 04/25/2023 at which time he developed nausea with vomiting. He presented to the emergency department this morning on 04/26/2023. Evaluation included noncontrast CT scan which revealed findings of possible small bowel obstruction. Patient has not noticed any decreased output from his ileostomy. He had a nasogastric tube placed with significant aspirate. [facility] Disclaimer: The information contained in this section may have been updated after the patient was seen, as this information can be updated by other users. Medical History (Updated 04/26/23 @ 17:06 by Hussain Juarez MD) Acute kidney injury superimposed on CKD Acute lumbosacral myofascial strain ARIELLA (acute kidney injury) ARIELLA (acute kidney injury) C. difficile diarrhea Cellulitis Dehisced intestinal anastomosis Depressed Depression Dyspnea on exertion GERD (gastroesophageal reflux disease) History of depression History of pleural effusion HLD (hyperlipidemia) Hypercalcemia Hypercalcemia Hyperlipemia Hypertension Hypertension Ileostomy in place Insomnia Intra-abdominal abscess post-procedure Non-healing wound Parathyroid adenoma Pituitary dysfunction Primary hyperparathyroidism Renal cyst Severe protein-calorie malnutrition Smoking greater than 30 pack years Thyroid disorder Thyroid Nodule Tobacco use disorder Vasectomy planned Surgical History History of colonoscopy History of partial thyroidectomy History of vasectomy Hx of parathyroidectomy Status post partial colectomy Family History No significant family history Social History Smoking Status: Current every day smoker tobacco type: cigarettes packs per day: 1 years smoked: 40 alcohol intake: never substance use type: fo
[2023-04-26 17:17] LABS: Adenovirus F 40/41, stool Not Detected (NotDetected); Astrovirus Not Detected (NotDetected); Campylobacter Not Detected (NotDetected); Clostridium Difficile A/B, PCR Not Detected (NotDetected); Cryptosporidium Not Detected (NotDetected); Cyclospora Cayetanesis Not Detected (NotDetected); Entamoeba histolytica Not Detected (NotDetected); Enteroaggregative E coli Not Detected (NotDetected); Enteropathogenic E coli Not Detected (NotDetected); Enterotoxigenic E coli Not Detected (NotDetected); Giardia lamblia Not Detected (NotDetected); Norovirus Not Detected (NotDetected); Plesimonas Shigalloides, PCR Not Detected (NotDetected); Rotavirus A Not Detected (NotDetected); Salmonella, PCR Not Detected (NotDetected); Sapovirus Not Detected (NotDetected); Shiga-like toxin E coli Not Detected (NotDetected); Shigella Enterovasive E coli Not Detected (NotDetected); Vibrio Cholerae Not Detected (NotDetected); Vibrio, PCR Not Detected (NotDetected); Yersinia Entercolitica, PCR Not Detected (NotDetected)
[2023-04-27 04:00] VITALS: BP 117/72; PULSE 67; RESP 16; TEMP 36.8; O2SAT 93; BMI 27.4
--- NOTE | 2023-04-27 06:00 | XR_ITS ---
PROCEDURE INFORMATION: Exam: XR Complete Acute Abdomen Series Including Chest Exam date and time: 04/27/2023 8:21 AM Age: 52 years old Clinical indication: Vomiting TECHNIQUE: Imaging protocol: Radiologic exam. Complete acute abdomen series, including 2 or more views of the abdomen and a single view chest. COMPARISON: CR XR CHEST PORTABLE 04/21/2023 8:00 AM FINDINGS: Tubes, catheters and devices: An enteric catheter is noted with tip overlying the left upper quadrant. Lungs: Scattered atelectasis is noted at the lung bases. Pleural spaces: Normal. No pleural effusions. No pneumothorax. Heart/Mediastinum: Normal. No cardiomegaly. Gastrointestinal tract: Normal. No bowel dilation. Intraperitoneal space: Normal. No free air. Bones/joints: Normal. No acute fracture. Soft tissues: Normal. IMPRESSION: Basilar atelectasis.
[2023-04-27 07:26] LABS: Eosinophils # 0.3 K/mm3 (0.0-0.4); Eosinophils % 2.8 % (0.1-12.0); Neutrophils # 7.3 K/mm3 (1.8-7.8); Neutrophils % 65.9 % (37.0-80.0); White Blood Count 11.1 K/mm3 (4.8-10.8)
[2023-04-27 07:33] VITALS: BP 118/76; PULSE 70; RESP 18; TEMP 36.8; O2SAT 93
[2023-04-27 07:39] LABS: Alanine Aminotransferase 27 U/L (12-78); Albumin Level 3.7 g/dl (3.5-5.0); Alkaline Phosphatase 114 U/L (38-126); Anion Gap 12.4 mEq/L (5-15); Aspartate Amino Transferase 41 U/L (17-59); Basophils % 0.3 % (0.1-2.0); Bilirubin,Total 0.5 mg/dl (0.2-1.3); Blood Urea Nitrogen 24 mg/dl (9-20); Calcium 10.5 mg/dl (8.4-10.2); Carbon Dioxide 30 mmol/L (22.0-30.0); Chloride 100 mmol/L (98-107); Creatinine Clearance Estimated 66 mL/min (50-200); Estimated Glomerular Filt Rate 45 ml/min (>60); GFR (African American) 55 ML/MIN (>60); Globulin 3.6 g/dL (1.3-3.2); Glucose 88 mg/dl (74-100); Hemoglobin 13.1 g/dL (14.1-18.0); Lymphocytes # 2.7 K/mm3 (0.7-4.5); Magnesium 2.1 mg/dl (1.6-2.3); Mean Corpuscular HGB Conc 33.5 g/dL (31.8-35.4); Mean Corpuscular Hemoglobin 31.1 pg (27.0-31.2); Mean Corpuscular Volume 92.9 fl (80-94); Monocytes # 0.8 K/mm3 (0.1-1.0); Platelet Count 289 K/mm3 (142-424); Potassium 3.4 mmoL/L (3.5-5.1); Red Cell Distribution Width 13.2 % (11.5-17.5); Sodium 139 mmol/L (136-145); Total Protein,Serum 7.3 g/dl (6.3-8.2)
--- NOTE | 2023-04-27 09:38 | EXP.MED.FU ---
Subjective *Date: 04/27/23 *Time: 15:10 Interval history: Patient doing better this morning. Did have vomiting overnight however. Denies significant pain. Ambulatory. Stable on room air. Had over 1600 cc of output from NG in the past 24 hours. Continues to have output from ostomy. No fever, chest pain, shortness of breath. Complaining of dry mouth. Exam Data for Last 24 hours Vital signs and Labs for Last 24 Hours: Temp Pulse Resp BP Pulse Ox O2 Del Method 98.2 F 70 18 118/76 93 L Room Air 04/27/23 07:33 04/27/23 07:33 04/27/23 07:33 04/27/23 07:33 04/27/23 07:33 04/27/23 09:00 Laboratory Results - last 24 hr 04/26/23 08:25: Urine Color Anita, Urine Appearance Clear, Urine pH 6.0, Ur Specific [place] >= 1.030, Urine Protein Trace, Urine Glucose (UA) Negative, Urine Ketones Negative, Urine Blood Trace-i, Urine Nitrate Negative, Urine Bilirubin Negative, Urine Urobilinogen 0.2, Ur Leukocyte Esterase Negative, Urine RBC 3-5, Urine WBC Occasional, Ur Squamous Epith Cells Occasional, Urine Bacteria Trace 04/26/23 11:44: Troponin I < 0.01 04/26/23 15:15: Troponin I 0.02 04/27/23 06:39: WBC 11.1 H, RBC 4.20 L, Hgb 13.1 L D, Hct 39.0 L, MCV 92.9, MCH 31.1, MCHC 33.5, RDW 13.2, Plt Count 289, MPV 8.0, Neut % (Auto) 65.9, Lymph % (Auto) 24.0, [place] % (Auto) 7.0, Eos % (Auto) 2.8, Baso % (Auto) 0.3, Neut # (Auto) 7.3, Lymph # (Auto) 2.7, [place] # (Auto) 0.8, Eos # (Auto) 0.3, Baso # (Auto) 0.0, Sodium 139, Potassium 3.4 L, Chloride 100, Carbon Dioxide 30, Anion Gap 12.4, BUN 24 H, Creatinine 1.60 H, Estimated Creat Clear 66, Estimated GFR 45 L, Est GFR ( Amer) 55 L D, Glucose 88 D, Calcium 10.5 H, Magnesium 2.1, Total Bilirubin 0.5, AST 41, ALT 27, Alkaline Phosphatase 114, Total Protein 7.3, Albumin 3.7 D, Globulin 3.6 H, Albumin/Globulin Ratio 1.0 L I & O for Last 24 hours: Intake & Output 04/24/23 04/25/23 04/26/23 04/27/23 23:59 23:59 23:59 23:59 Intake Total 3104 / 3104 0 / 0 Output Total 135 / 2049 Balance 1754 / 1054 -2099 / Weight 93.213 kg 88.961 kg Constitutional Constitutional: no acute distress, average body habitus and chronically ill appearing *Routine HEENT Exam Head: Present normocephalic Eye: Present EOMI and PERRL ENT: Present mucous membranes moist Comments: NG in place *Routine Neck Exam Neck: Present supple; Absent lymphadenopathy *Routine Respiratory Exam Respiratory: Present CTA bilaterally; Absent rhonchi, wheezes or crackles *Routine Cardiovascular Exam Cardiovascular: Present RRR *Routine Abdominal Exam Abdominal: Present soft and normoactive bowel sounds; Absent tenderness or distended Comments: abdomen has ileostomy bag attached and R side covered with dressing, minimal tenderness, surgical incision clean dry and intact. Output in ostomy bag. *Routine Extremities Exam Extremities: Absent cyanosis, clubbing or edema *Routine Skin Exam Skin: Present warm; Absent rash *Routine Neurological Exam Neurological: Present alert, oriented X3 and moving all extremities; Absent altered mental status Routine Psychiatric Exam Psychiatric: Present depressed Assessment and Plan *Assessment and plan (1) Ileus: Status: Acute Category: Medical Code(s): K56.7 - Ileus, unspecified (2) Complete obstruction of small intestine: Status: Acute Category: Medical Code(s): K56.601 - Complete intestinal obstruction, unspecified as to cause (3) Acute kidney injury: Status: Acute Category: Medical Code(s): N17.9 - Acute kidney failure, unspecified (4) Hypercalcemia: Status: Acute Category: Medical Code(s): E83.52 - Hypercalcemia (5) Hypertension: Status: Chronic Category: Medical Code(s): I10 - Essential (primary) hypertension (6) GERD (gastroesophageal reflux disease): Status: Chronic Category: Medical Code(s): K21.9 - Gastro-esophageal reflux disease wit
--- NOTE | 2023-04-27 12:42 | P.PN_ITS ---
Subjective Patient reports: no new complaints Narrative: Feeling better and wanting food. Ostomy with good output but NGT with 1100 overnight shift Exam Data for Last 24 hours Vital signs and Labs for Last 24 Hours: Temp Pulse Resp BP Pulse Ox O2 Del Method 98.2 F 70 18 118/76 93 L Room Air 04/27/23 07:33 04/27/23 07:33 04/27/23 07:33 04/27/23 07:33 04/27/23 07:33 04/27/23 10:50 Laboratory Results - last 24 hr 04/26/23 11:44: Troponin I < 0.01 04/26/23 15:15: Troponin I 0.02 04/27/23 06:39: WBC 11.1 H, RBC 4.20 L, Hgb 13.1 L D, Hct 39.0 L, MCV 92.9, MCH 31.1, MCHC 33.5, RDW 13.2, Plt Count 289, MPV 8.0, Neut % (Auto) 65.9, Lymph % (Auto) 24.0, [place] % (Auto) 7.0, Eos % (Auto) 2.8, Baso % (Auto) 0.3, Neut # (Auto) 7.3, Lymph # (Auto) 2.7, [place] # (Auto) 0.8, Eos # (Auto) 0.3, Baso # (Auto) 0.0, Sodium 139, Potassium 3.4 L, Chloride 100, Carbon Dioxide 30, Anion Gap 12.4, BUN 24 H, Creatinine 1.60 H, Estimated Creat Clear 66, Estimated GFR 45 L, Est GFR ( Amer) 55 L D, Glucose 88 D, Calcium 10.5 H, Magnesium 2.1, Total Bilirubin 0.5, AST 41, ALT 27, Alkaline Phosphatase 114, Total Protein 7.3, Albumin 3.7 D, Globulin 3.6 H, Albumin/Globulin Ratio 1.0 L I & O for Last 24 hours: Intake & Output 04/24/23 04/25/23 04/26/23 04/27/23 23:59 23:59 23:59 23:59 Intake Total 3104 / 3104 0 / 0 Output Total 1350 / 2050 2550 / 2550 Balance 1754 / 1054 -2550 / -2550 Weight 205 lb 8 oz 196 lb 2 oz Constitutional Constitutional: no acute distress *Routine Abdominal Exam Abdominal: Present soft Comments: Soft, min ttp left side, wounds c/d/i Progress Note: A&P Assessment and plan (1) Ileus: Status: Acute Assessment and plan: Ostomy output is high but so is NGT. I would keep NGT to intermittent LWS as long as output is so high. Non op managment of early pSBO vs ileus. (2) Complete obstruction of small intestine: Status: Acute (3) Acute kidney injury: Status: Acute Assessment and plan: Improving with hydration (4) Hypercalcemia: Status: Acute (5) Hypertension: Status: Chronic (6) GERD (gastroesophageal reflux disease): Status: Chronic (7) Depressed: Status: Chronic
--- NOTE | 2023-04-27 14:20 | PC.NURSE ---
PT IS RESTING IN BED. ALERT AND ORIENTED X4. PT HAS BEEN SLEEPING ON AND OFF T/O THE SHIFT. AMBULATED IN THE CONNER WITH STAFF. NG TUBE CONNECTED TO LOW WALL INTERMITTENT SUCTION. 200 ML'S GASTRIC CONTENTS EMPTIED FROM CANISTER. LUNG SOUNDS CLEAR. ABDOMEN SOFT/TENDER WITH WITH SURGICAL INCISION NOTED. OSTOMY NOTED TO RLQ. WILL CONTINUE TO MONITOR.
[2023-04-27 15:39] VITALS: BP 134/77; PULSE 79; RESP 18; TEMP 36.8; O2SAT 97
[2023-04-27 19:50] VITALS: BP 135/86; PULSE 72; RESP 18; TEMP 36.8; O2SAT 94
[2023-04-28 04:00] VITALS: BP 134/84; PULSE 67; RESP 16; TEMP 36.9; O2SAT 97; BMI 28.5
--- NOTE | 2023-04-28 06:17 | PC.NURSE ---
notified nonprofit fundraiser of postive blood cx results
--- NOTE | 2023-04-28 07:47 | EXP.MED.FU ---
Subjective *Date: 04/28/23 *Time: 13:21 Interval history: Patient doing well this morning. On room air. Less than 250 cc of output in the past 24 hours. No more nausea or vomiting. Having adequate output from ileostomy. Exam Data for Last 24 hours Vital signs and Labs for Last 24 Hours: Temp Pulse Resp BP Pulse Ox O2 Del Method 98.5 F 67 16 134/84 97 Room Air 04/28/23 04:00 04/28/23 04:00 04/28/23 04:00 04/28/23 04:00 04/28/23 04:00 04/28/23 06:25 I & O for Last 24 hours: Intake & Output 04/25/23 04/26/23 04/27/23 04/28/23 23:59 23:59 23:59 23:59 Intake Total 3104 / 3104 2114 / 2739 625 / 625 Output Total 1350 / 2050 2850 / 2850 550 / 550 Balance 1754 / 1054 -736 / -111 75 / 75 Weight 93.213 kg 88.961 kg 92.618 kg Microbiology Reports for the Last 24 Hours: Microbiology 04/26/23 09:50 Blood Blood Culture - Preliminary Constitutional Constitutional: no acute distress, average body habitus and chronically ill appearing *Routine HEENT Exam Head: Present normocephalic Eye: Present EOMI and PERRL ENT: Present mucous membranes moist Comments: NG in place *Routine Neck Exam Neck: Present supple; Absent lymphadenopathy *Routine Respiratory Exam Respiratory: Present CTA bilaterally; Absent rhonchi, wheezes or crackles *Routine Cardiovascular Exam Cardiovascular: Present RRR *Routine Abdominal Exam Abdominal: Present soft and normoactive bowel sounds; Absent tenderness or distended Comments: abdomen has ileostomy bag attached and R side covered with dressing, minimal tenderness, surgical incision clean dry and intact. Output in ostomy bag. *Routine Extremities Exam Extremities: Absent cyanosis, clubbing or edema *Routine Skin Exam Skin: Present warm; Absent rash *Routine Neurological Exam Neurological: Present alert, oriented X3 and moving all extremities; Absent altered mental status Routine Psychiatric Exam Psychiatric: Present depressed Assessment and Plan *Assessment and plan (1) Ileus: Status: Acute Category: Medical Code(s): K56.7 - Ileus, unspecified (2) Complete obstruction of small intestine: Status: Acute Category: Medical Code(s): K56.601 - Complete intestinal obstruction, unspecified as to cause (3) Acute kidney injury: Status: Acute Category: Medical Code(s): N17.9 - Acute kidney failure, unspecified (4) Hypercalcemia: Status: Acute Category: Medical Code(s): E83.52 - Hypercalcemia (5) Hypertension: Status: Chronic Category: Medical Code(s): I10 - Essential (primary) hypertension (6) GERD (gastroesophageal reflux disease): Status: Chronic Category: Medical Code(s): K21.9 - Gastro-esophageal reflux disease without esophagitis (7) Depressed: Status: Chronic Category: Medical Code(s): F32.A - Depression, unspecified Plan Patient is a 52-year-old male with past medical history of CKD hypertension, recent abdominal surgery with takedown of adhesions and colostomy reversal. Presented to the ER with abdominal pain, nausea, image findings concerning for ileus verse obstruction. Discussed case with surgery. Recommend removing NG today. Patient doing better. Advance diet. If does well overnight, anticipate discharge in the morning. Continues to require inpatient management. Problems addressed as follows: Dehydration Ileus versus SBO -Defer management to surgical service, NG in place to intermittent low wall suction. Given loose stool from ileostomy and history of C. difficile, diarrhea panel pending. Holding on antibiotics pending results. White cell count 11.0, improved from yesterday. Repeat CBC ordered for the morning. Postsurgical pain: Toradol 15 mg IV every 6 hours as needed for moderate pain ARIELLA: Hypercalcemia: Calcium improved to 10.0, creatinine improved to 1.4. Discontinue IV fluid Caution with nephrotoxins CBC,
[2023-04-28 08:00] VITALS: BP 136/87; PULSE 70; RESP 17; TEMP 37; O2SAT 95
[2023-04-28 08:38] LABS: Basophils % 0.3 % (0.1-2.0); Eosinophils # 0.4 K/mm3 (0.0-0.4); Eosinophils % 3.2 % (0.1-12.0); Hematocrit 36.6 % (42.0-52.0); Hemoglobin 12.7 g/dL (14.1-18.0); Lymphocytes # 2.6 K/mm3 (0.7-4.5); Lymphocytes % 23.3 % (10-50); Mean Corpuscular HGB Conc 34.5 g/dL (31.8-35.4); Mean Corpuscular Hemoglobin 32.1 pg (27.0-31.2); Mean Corpuscular Volume 93.1 fl (80-94); Mean Platelet Volume 9.3 fl (7.4-10.4); Monocytes % 9.1 % (1.7-9.3); Neutrophils % 64.1 % (37.0-80.0); Platelet Count 260 K/mm3 (142-424); Red Blood Count 3.94 M/mm3 (4.60-6.20); Red Cell Distribution Width 13.3 % (11.5-17.5)
[2023-04-28 08:45] LABS: Alanine Aminotransferase 20 U/L (12-78); Albumin Level 3.4 g/dl (3.5-5.0); Alkaline Phosphatase 106 U/L (38-126); Anion Gap 10.4 mEq/L (5-15); Aspartate Amino Transferase 32 U/L (17-59); Bilirubin,Total 0.4 mg/dl (0.2-1.3); Blood Urea Nitrogen 24 mg/dl (9-20); Carbon Dioxide 27 mmol/L (22.0-30.0); Chloride 102 mmol/L (98-107); Creatinine Clearance Estimated 79 mL/min (50-200); Estimated Glomerular Filt Rate 53 ml/min (>60); GFR (African American) 64 ML/MIN (>60); Globulin 3.5 g/dL (1.3-3.2); Glucose 77 mg/dl (74-100); Potassium 3.4 mmoL/L (3.5-5.1); Sodium 136 mmol/L (136-145); Total Protein,Serum 6.9 g/dl (6.3-8.2)
--- NOTE | 2023-04-28 10:14 | PC.NURSE ---
patient ambulated in [place] with staff
--- NOTE | 2023-04-28 10:50 | EXP.SURG.PN ---
Subjective Narrative: No new issues, hungry; NGT with less than 250 Exam Data for Last 24 hours Vital signs and Labs for Last 24 Hours: Temp Pulse Resp BP Pulse Ox O2 Del Method 98.6 F 70 17 136/87 95 Room Air 04/28/23 08:00 04/28/23 08:00 04/28/23 08:00 04/28/23 08:00 04/28/23 08:00 04/28/23 09:00 Laboratory Results - last 24 hr 04/28/23 07:30: WBC 11.0 H, RBC 3.94 L, Hgb 12.7 L, Hct 36.6 L, MCV 93.1, MCH 32.1 H, MCHC 34.5, RDW 13.3, Plt Count 260, MPV 9.3, Neut % (Auto) 64.1, Lymph % (Auto) 23.3, [place] % (Auto) 9.1, Eos % (Auto) 3.2, Baso % (Auto) 0.3, Neut # (Auto) 7.0, Lymph # (Auto) 2.6, [place] # (Auto) 1.0, Eos # (Auto) 0.4, Baso # (Auto) 0.0, Sodium 136, Potassium 3.4 L, Chloride 102, Carbon Dioxide 27, Anion Gap 10.4, BUN 24 H, Creatinine 1.40 H, Estimated Creat Clear 79, Estimated GFR 53 L, Est GFR ( Amer) 64, Glucose 77, Calcium 10.0, Magnesium 2.0, Total Bilirubin 0.4, AST 32, ALT 20 D, Alkaline Phosphatase 106, Total Protein 6.9, Albumin 3.4 L, Globulin 3.5 H, Albumin/Globulin Ratio 1.0 L I & O for Last 24 hours: Intake & Output 04/25/23 04/26/23 04/27/23 04/28/23 23:59 23:59 23:59 23:59 Intake Total 3104 / 3104 2114 / 2739 625 / 625 Output Total 1350 / 2050 2850 / 2850 550 / 550 Balance 1754 / 1054 -736 / -111 75 / 75 Weight 205 lb 8 oz 196 lb 2 oz 204 lb 3 oz Microbiology Reports for the Last 24 Hours: Microbiology 04/26/23 09:50 Blood Blood Culture - Preliminary Detailed Abdominal Exam Comments: Soft, nt, nd, ostomy viable with good output Progress Note: A&P Assessment and plan (1) Ileus: Status: Acute Assessment and plan: Resolved; pulled NGT today; allow fulls and ADAT (2) Complete obstruction of small intestine: Status: Acute (3) Acute kidney injury: Status: Acute Assessment and plan: Resolving with hydration, secondary to dehydration (4) Hypercalcemia: Status: Acute (5) Hypertension: Status: Chronic (6) GERD (gastroesophageal reflux disease): Status: Chronic (7) Depressed: Status: Chronic
[2023-04-28 15:37] VITALS: BP 123/78; PULSE 71; RESP 18; TEMP 36.6; O2SAT 96
--- NOTE | 2023-04-28 15:37 | PC.NURSE ---
PT IS RESTING IN BED. ALERT AND ORIENTED X4. NG TUBE HAS BEEN DC'D. PT HAS TOLERATED FULL LIQUIDS AND CRACKERS AND WILL BE ADVANCED TO A REGULAR DIET FOR DINNER. PT HAS AMBULATED IN THE CONNER THIS SHIFT. LUNG SOUNDS CLEAR. ABDOMEN SOFT/NON TENDER SURGICAL INCISION WITH OSTOMY NOTED. WILL CONTINUE TO MONITOR.
[2023-04-28 18:50] VITALS: BMI 28.5
[2023-04-28 20:00] VITALS: BP 126/84; PULSE 62; RESP 16; TEMP 36.8; O2SAT 97
[2023-04-29 04:00] VITALS: BP 128/77; PULSE 57; RESP 16; TEMP 37.1; O2SAT 95; BMI 28.6
--- NOTE | 2023-04-29 06:59 | P.PN_ITS ---
Subjective Narrative: Patient tolerated nasogastric tube out yesterday. Given full liquid diets which she tolerated without issue with low residue diet (cheeseburger) last night. Exam Data for Last 24 hours Vital signs and Labs for Last 24 Hours: Temp Pulse Resp BP Pulse Ox O2 Del Method 98.7 F 57 L 16 128/77 95 Room Air 04/29/23 04:00 04/29/23 04:00 04/29/23 04:00 04/29/23 04:00 04/29/23 04:00 04/29/23 06:34 Laboratory Results - last 24 hr 04/28/23 07:30: WBC 11.0 H, RBC 3.94 L, Hgb 12.7 L, Hct 36.6 L, MCV 93.1, MCH 32.1 H, MCHC 34.5, RDW 13.3, Plt Count 260, MPV 9.3, Neut % (Auto) 64.1, Lymph % (Auto) 23.3, [place] % (Auto) 9.1, Eos % (Auto) 3.2, Baso % (Auto) 0.3, Neut # (Auto) 7.0, Lymph # (Auto) 2.6, [place] # (Auto) 1.0, Eos # (Auto) 0.4, Baso # (Auto) 0.0, Sodium 136, Potassium 3.4 L, Chloride 102, Carbon Dioxide 27, Anion Gap 10.4, BUN 24 H, Creatinine 1.40 H, Estimated Creat Clear 79, Estimated GFR 53 L, Est GFR ( Amer) 64, Glucose 77, Calcium 10.0, Magnesium 2.0, Total Bilirubin 0.4, AST 32, ALT 20 D, Alkaline Phosphatase 106, Total Protein 6.9, Albumin 3.4 L, Globulin 3.5 H, Albumin/Globulin Ratio 1.0 L I & O for Last 24 hours: Intake & Output 04/26/23 04/27/23 04/28/23 04/29/23 11:59 11:59 11:59 11:59 Intake Total 1999 1104 / 1104 2739 / 2739 640 / 640 Output Total 3700 / 3700 1050 / 1050 1200 / 1200 Balance 1999 -2596 / -2596 1689 / 1689 -560 / -560 Weight 213 lb 196 lb 2 oz 204 lb 3 oz 204 lb 8 oz Microbiology Reports for the Last 24 Hours: Microbiology 04/26/23 09:50 Blood Blood Culture - Preliminary *Routine Abdominal Exam Abdominal: Present soft Comments: Incision clean. Some minor erythema (questional bruising versus mild cellulitis) in the inferior aspect of midline incision. Progress Note: A&P Assessment and plan (1) Ileus: Status: Acute (2) Complete obstruction of small intestine: Status: Acute (3) Acute kidney injury: Status: Acute (4) Hypercalcemia: Status: Acute (5) Hypertension: Status: Chronic (6) GERD (gastroesophageal reflux disease): Status: Chronic (7) Depressed: Status: Chronic Assessment and Plan Assessment and Plan for All Diagnoses:: I will plan to remove half the sutures today with plan for discharge later today. Likely will discharge on antibiotics for possible mild lower incisional cellulitis.
[2023-04-29 07:01] LABS: Basophils % 0.3 % (0.1-2.0); Eosinophils # 0.3 K/mm3 (0.0-0.4); Eosinophils % 2.4 % (0.1-12.0); Hematocrit 38.2 % (42.0-52.0); Hemoglobin 12.8 g/dL (14.1-18.0); Lymphocytes # 2.3 K/mm3 (0.7-4.5); Lymphocytes % 22.7 % (10-50); Mean Corpuscular HGB Conc 33.5 g/dL (31.8-35.4); Mean Corpuscular Hemoglobin 31.5 pg (27.0-31.2); Mean Corpuscular Volume 94.1 fl (80-94); Monocytes # 0.8 K/mm3 (0.1-1.0); Monocytes % 7.5 % (1.7-9.3); Neutrophils # 6.8 K/mm3 (1.8-7.8); Neutrophils % 67.1 % (37.0-80.0); Platelet Count 266 K/mm3 (142-424); Red Blood Count 4.06 M/mm3 (4.60-6.20); Red Cell Distribution Width 13.5 % (11.5-17.5); White Blood Count 10.1 K/mm3 (4.8-10.8)
[2023-04-29 07:14] LABS: Alanine Aminotransferase 24 U/L (12-78); Albumin Level 3.5 g/dl (3.5-5.0); Alkaline Phosphatase 109 U/L (38-126); Anion Gap 11.6 mEq/L (5-15); Aspartate Amino Transferase 41 U/L (17-59); Bilirubin,Total 0.4 mg/dl (0.2-1.3); Blood Urea Nitrogen 23 mg/dl (9-20); Calcium 9.8 mg/dl (8.4-10.2); Carbon Dioxide 25 mmol/L (22.0-30.0); Chloride 104 mmol/L (98-107); Creatinine Clearance Estimated 79 mL/min (50-200); Estimated Glomerular Filt Rate 53 ml/min (>60); GFR (African American) 64 ML/MIN (>60); Globulin 3.6 g/dL (1.3-3.2); Glucose 96 mg/dl (74-100); Potassium 3.6 mmoL/L (3.5-5.1); Sodium 137 mmol/L (136-145); Total Protein,Serum 7.1 g/dl (6.3-8.2)
[2023-04-29 07:20] LABS: Magnesium 1.9 mg/dl (1.6-2.3)
[2023-04-29 08:00] VITALS: BP 128/78; PULSE 65; RESP 17; TEMP 36.6; O2SAT 97
--- NOTE | 2023-04-29 12:30 | EXP.MED.FU ---
Subjective *Date: 04/29/23 *Time: 12:35 Interval history: Patient ambulating independently, doing laps in the hallway. On room air. Tolerating regular diet. Having normal output from ileostomy. No nausea or vomiting. Exam Data for Last 24 hours Vital signs and Labs for Last 24 Hours: Temp Pulse Resp BP Pulse Ox O2 Del Method 97.9 F 65 17 128/78 97 Room Air 04/29/23 08:00 04/29/23 08:00 04/29/23 08:00 04/29/23 08:00 04/29/23 08:00 04/29/23 11:00 Laboratory Results - last 24 hr 04/29/23 06:42: WBC 10.1, RBC 4.06 L, Hgb 12.8 L, Hct 38.2 L, MCV 94.1 H, MCH 31.5 H, MCHC 33.5, RDW 13.5, Plt Count 266, MPV 9.0, Neut % (Auto) 67.1, Lymph % (Auto) 22.7, [place] % (Auto) 7.5, Eos % (Auto) 2.4, Baso % (Auto) 0.3, Neut # (Auto) 6.8, Lymph # (Auto) 2.3, [place] # (Auto) 0.8, Eos # (Auto) 0.3, Baso # (Auto) 0.0, Sodium 137, Potassium 3.6, Chloride 104, Carbon Dioxide 25, Anion Gap 11.6, BUN 23 H, Creatinine 1.40 H, Estimated Creat Clear 79, Estimated GFR 53 L, Est GFR ( Amer) 64, Glucose 96 D, Calcium 9.8, Magnesium 1.9, Total Bilirubin 0.4, AST 41 D, ALT 24, Alkaline Phosphatase 109, Total Protein 7.1, Albumin 3.5, Globulin 3.6 H, Albumin/Globulin Ratio 1.0 L I & O for Last 24 hours: Intake & Output 04/26/23 04/27/23 04/28/23 04/29/23 23:59 23:59 23:59 23:59 Intake Total 3104 / 3104 2114 / 2739 865 / 1265 670 / 670 Output Total 1350 / 2050 2850 / 2850 1450 / 1450 300 / 300 Balance 1754 / 1054 -736 / -111 -585 / -185 370 / 370 Weight 93.213 kg 88.961 kg 92.6 kg 92.76 kg Constitutional Constitutional: no acute distress, average body habitus and chronically ill appearing *Routine HEENT Exam Head: Present normocephalic Eye: Present EOMI and PERRL ENT: Present mucous membranes moist *Routine Neck Exam Neck: Present supple; Absent lymphadenopathy *Routine Respiratory Exam Respiratory: Present CTA bilaterally; Absent rhonchi, wheezes or crackles *Routine Cardiovascular Exam Cardiovascular: Present RRR *Routine Abdominal Exam Abdominal: Present soft and normoactive bowel sounds; Absent tenderness or distended Comments: Output in ileostomy, surgical incision clean dry and intact, minimal erythema at most caudal portion of incision, no drainage. *Routine Extremities Exam Extremities: Absent cyanosis, clubbing or edema *Routine Skin Exam Skin: Present warm; Absent rash *Routine Neurological Exam Neurological: Present alert, oriented X3 and moving all extremities; Absent altered mental status Routine Psychiatric Exam Psychiatric: Present depressed Assessment and Plan *Assessment and plan (1) Ileus: Status: Acute Category: Medical Code(s): K56.7 - Ileus, unspecified (2) Complete obstruction of small intestine: Status: Acute Category: Medical Code(s): K56.601 - Complete intestinal obstruction, unspecified as to cause (3) Acute kidney injury: Status: Acute Category: Medical Code(s): N17.9 - Acute kidney failure, unspecified (4) Hypercalcemia: Status: Acute Category: Medical Code(s): E83.52 - Hypercalcemia (5) Hypertension: Status: Chronic Category: Medical Code(s): I10 - Essential (primary) hypertension (6) GERD (gastroesophageal reflux disease): Status: Chronic Category: Medical Code(s): K21.9 - Gastro-esophageal reflux disease without esophagitis (7) Depressed: Status: Chronic Category: Medical Code(s): F32.A - Depression, unspecified Plan Patient is a 52-year-old male with past medical history of CKD hypertension, recent abdominal surgery with takedown of adhesions and colostomy reversal. Presented to the ER with abdominal pain, nausea, image findings concerning for ileus verse obstruction. Discussed case with surgery. Tolerating advancement in diet. Stable for discharge home. Removing some of sutures today. Problems addressed as follows: Dehydration Ileus versus SBO -
--- NOTE | 2023-04-29 14:00 | EXP.DC.SUM ---
General Admission date:: 04/26/23 Discharge date: 04/29/23 HPI HPI HPI: Patient is a 52-year-old male recently admitted to [facility] for ex lap with lysis of adhesions and takedown of colostomy with pelvic anastomosis. Was discharged home earlier this week with adequate output from his ileostomy and tolerance of p.o. intake. Presented to the ER today due to increased abdominal distention, pain, nausea and vomiting. Was having decreased output from his ileostomy but no william lack of output. NG placed in the ER, decompression achieved. Patient noted to have ARIELLA, mild leukocytosis, and hypercalcemia. Surgery was consulted, patient admitted to their service for further management. Medicine consulted to assist with comanagement of medical conditions. History per surgical documentation as follows: He had developed symptoms consistent with partial distal large bowel obstruction beginning about 2 years ago. 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 He did have a proximal diverting loop ileostomy performed at that time with distal colonic anastomosis. His postoperative course was complicated by anastomotic failure of the pelvic anastomosis with return to the operating room at which time he was found to have appreciable feculent peritonitis and underwent thorough washout with creation of end colostomy in addition to his diverting loop ileostomy. He had a prolonged complicated course. Consideration was being given for possible takedown. He underwent endoscopic evaluation of his defunctionalized colon with planned anastomosis. Patient was taken to the operating room and underwent laparotomy with takedown of the defunctionalized colostomy with pelvic anastomosis on 04/18/2023. Diverting loop ileostomy remained to protect the pelvic anastomosis. Patient actually did quite well postoperatively. He was discharged home on 03/22/2023. Patient states that he was feeling well until the evening of 04/25/2023 at which time he developed nausea with vomiting. He presented to the emergency department this morning on 04/26/2023. Evaluation included noncontrast CT scan which revealed findings of possible small bowel obstruction. Patient has not noticed any decreased output from his ileostomy. He had a nasogastric tube placed with significant aspirate. Hospital Course Hospital Course Hospital Course: Patient had nasogastric tube placed within the emergency department. He did have some appreciable bilious thick fluid. He was admitted for inpatient management. Consultation was made with the hospitalist service. He continued to have good output from his ileostomy which would be more suggestive of an ileus as opposed to obstruction. He underwent acute abdominal series a day after admission which reportedly revealed only findings of atelectasis. He did have his nasogastric tube removed. His diet was advanced rapidly and he did well tolerating some low residue diet in the evening of 04/28/2023. Following morning plans were made for discharge home. He did have some erythema in the lower aspect of his incision. There was noted to be some cloudy serosanguineous drainage. A little bit over half of the sutures were removed and this area of drainage was probed. There was an appreciable amount of serosanguineous cloudy drainage. This was sent for culture and the wound was packed with half-inch plain packing gauze prior to discharge. Plan was made for discharge home on oral antibiotics consisting of levofloxacin and wound care with follow-up in the office in 1 week. Exam Data for Last 24 hours Vital signs and Labs for Last 24 Hours: Temp Pulse Resp BP Pulse Ox O2 Del Method 97.9 F 65 17 128/78 97 Room Air 04/29/23 08:00 04/29/23 08:00 04/29/23 08:00 04/29/23 08:00 04/29/23 08:00 04/29/23 11:00 Laboratory Results - last 24 hr 04/29/23
--- NOTE | 2023-04-30 17:45 | PC.NURSE ---
notified dr. johnston of pt blood culture results. Pt d/c from hospital on Levaquin. Dr. Johnston requests a f/u call to check on pt, states if pt improving results are most likely a contaminant. Spoke with pt family member Kathya-reports pt is improving, still on levaquin, no fevers.
== END 2023-04-29 12:56 | disposition home or self-care (01) | DRG 389 ==
LOC: ER 10:51 → 2ND 11:11
PROVIDERS: Internal Medicine Adolescent Medicine; Admitting Provider Surgery; Emergency Provider Emergency Medicine; PCP Family Medicine; Visit Provider Surgery
DX: K56.7 Ileus, unspecified (principal); N17.9 Acute kidney failure, unspecified; K56.601 Complete intestinal obstruction, unspecified as to cause; Z93.3 Colostomy status; F17.210 Nicotine dependence, cigarettes, uncomplicated; E83.52 Hypercalcemia; E78.5 Hyperlipidemia, unspecified; K21.9 Gastro-esophageal reflux disease without esophagitis; F32.A Depression, unspecified; I12.9 Hypertensive chronic kidney disease with stage 1 through stage 4 chronic kidney disease, or unspecified chronic kidney disease; N18.9 Chronic kidney disease, unspecified; E86.0 Dehydration
CPT/HCPCS: 36415; 71045; 74021; 74177; 80053; 81001; 82803; 83605; 83690; 83735; 84484; 85025; 87040; 87070; 87205; 87507; 99285; J0131; J1956; Q9967

== ENCOUNTER → 2023-05-03 12:40 | Outpatient (CLI) | payer OTHER, SELFPAY ==
[2023-05-03 14:34] LABS: Basophils # 0.1 K/mm3 (0-0.2); Basophils % 0.4 % (0.1-2.0); Eosinophils # 0.3 K/mm3 (0.0-0.4); Eosinophils % 2.3 % (0.1-12.0); Hematocrit 46.4 % (42.0-52.0); Hemoglobin 14.9 g/dL (14.1-18.0); Lymphocytes # 1.6 K/mm3 (0.7-4.5); Lymphocytes % 13.6 % (10-50); Mean Corpuscular HGB Conc 32.1 g/dL (31.8-35.4); Mean Corpuscular Hemoglobin 30.3 pg (27.0-31.2); Mean Corpuscular Volume 94.5 fl (80-94); Mean Platelet Volume 9.1 fl (7.4-10.4); Monocytes # 0.6 K/mm3 (0.1-1.0); Monocytes % 4.8 % (1.7-9.3); Neutrophils # 9.5 K/mm3 (1.8-7.8); Neutrophils % 78.9 % (37.0-80.0); Platelet Count 399 K/mm3 (142-424); Red Blood Count 4.91 M/mm3 (4.60-6.20); Red Cell Distribution Width 13.4 % (11.5-17.5)
[2023-05-03 15:40] LABS: Chloride 105 mmol/L (98-107); Potassium 4.4 mmoL/L (3.5-5.1); Sodium 139 mmol/L (136-145)
[2023-05-03 15:43] LABS: Blood Urea Nitrogen 11 mg/dl (9-20); Estimated Glomerular Filt Rate 49 ml/min (>60); GFR (African American) 59 ML/MIN (>60)
[2023-05-03 15:44] LABS: Anion Gap 17.4 mEq/L (5-15); Calcium 10.5 mg/dl (8.4-10.2); Carbon Dioxide 21 mmol/L (22.0-30.0); Glucose 111 mg/dl (74-100)
== END ==
LOC: LAB 12:42
PROVIDERS: Visit Provider Surgery
DX: R18.8 Other ascites (principal)
CPT/HCPCS: 80048; 85025

== ENCOUNTER 2023-05-03 15:23 | Emergency (ER) | payer OTHER, SELFPAY ==
[2023-05-03 15:25] VITALS: BP 154/99; PULSE 80; RESP 24; TEMP 37.6; O2SAT 97; BMI 34.9
--- NOTE | 2023-05-03 15:36 | CT_ITS ---
PROCEDURE INFORMATION: Exam: CT Abdomen And Pelvis With Contrast Exam date and time: 05/03/2023 5:49 PM Age: 52 years old Clinical indication: Other: Wound infection; Additional info: Oral and iv - concern for wound infection. TECHNIQUE: Imaging protocol: Computed tomography of the abdomen and pelvis with contrast. Radiation optimization: All CT scans at this facility use at least one of these dose optimization techniques: automated exposure control; mA and/or kV adjustment per patient size (includes targeted exams where dose is matched to clinical indication); or iterative reconstruction. Contrast material: ISOVUE; Contrast volume: 70 ml; Contrast route: IV; Other contrast: Oral; REPORTING DATA: Count of CT and Cardiac NM exams in prior 12 months: This patient has received 8 known CTs and 0 known cardiac nuclear medicine studies in the 12 months prior to the current study. COMPARISON: CT ABDOMEN PELVIS W CON 04/26/2023 10:03 AM FINDINGS: Lungs: There are areas of subpleural reticulation throughout the visualized lungs which are nonspecific. Liver: Normal. No mass. Gallbladder and bile ducts: Normal. No calcified stones. No ductal dilation. Pancreas: The pancreas is of normal size and morphology, without evidence of masses, cysts, or calcifications. The pancreatic duct is not dilated. Spleen: The spleen is normal in size and attenuation. No splenic masses or cysts are observed. Adrenal glands: The adrenal glands appear normal. Kidneys and ureters: There is nonspecific bilateral perinephric stranding. Simple appearing right renal cysts. Nonobstructing left midpole intrarenal calculus. Additional left lower pole intrarenal calculus. Stomach and bowel: Stable appearance of a diverting ileostomy in the right lower quadrant. The patient is status post prior partial colectomy. There are scattered colonic diverticula without evidence for active diverticulitis. Appendix: No evidence of appendicitis. There are mildly prominent but nonenlarged and nonspecific retroperitoneal nodes. Mildly prominent nodes in the central mesentery, nonspecific. Intraperitoneal space: New moderate inflammatory change in the left hemiabdomen/paracolic gutter, nonspecific. Vasculature: Multiple pelvic phleboliths are present. There is atherosclerotic disease of the visualized aorta and its major branch vessels. Lymph nodes: No enlarged or pathological lymph nodes are identified in the abdomen or pelvis. Urinary bladder: There is moderate distention of the urinary bladder. Reproductive: No significant pathology. Bones/joints: There is diffuse degenerative disease of the visualized osseous structures. Soft tissues: Postsurgical changes of the ventral abdominal wall with a fluid and air collection at the midline incision site adjacent to the umbilicus. The volume of fluid is significantly decreased from the examination one week prior. IMPRESSION: 1. Decreased fluid associated with the ventral abdominal wall incision, correlate for any recent intervention. Small fluid and air in this region, similarly correlate for any recent intervention. 2. Focal fat necrosis in the left hemiabdomen/paracolic gutter, of dubious clinical consequence but follow-up may be appropriate. COMMENTS: Consistent with the [employer]'s Incidental Findings Committee white paper (J Am Vivien Radiol 2018): Any incidental renal lesion less than 1 cm or classified as too small to characterize, or any incidental cystic renal lesion characterized as simple-appearing, is likely benign. No follow-up imaging is recommended for these lesions per consensus recommendations based on imaging criteria.
--- NOTE | 2023-05-03 15:47 | HMH.EDGENADL ---
Discharge Plan Disposition Patient Disposition: Home, Self-Care Prescriptions Prescriptions: New clindamycin HCl 150 mg capsule 450 mg PO Q8H 7 Days Qty: 63 0RF No Action amitriptyline 25 mg tablet 25 mg PO DAILY lisinopril 5 mg tablet 5 mg PO DAILY levofloxacin 750 mg tablet 750 mg PO DAILY Patient Comments: TAKE ONE TABLET BY MOUTH ONCE DAILY FOR 10 DAYS -- FINISH ALL MEDICINE -- ondansetron 4 mg tablet,disintegrating 4 mg PO Q8HP PRN (Reason: Nausea And Vomiting) cholecalciferol (vitamin D3) 125 mcg (5,000 unit) capsule 125 mcg PO DAILY Referrals Follow up/Referrals: Provider,Referral, MD [Referring] - See instructions Activity Restrictions/Add. Instructions Additional Instructions/Restrictions: Continue taking levofloxacin as prescribed. Start clindamycin 3 times daily to cover for staph. Call your family doctor to establish care for this visit to the emergency department and schedule follow-up within 48 hours to ensure improvement. If you have any worsening of your condition or any other concerning signs or symptoms, return to the emergency department or your primary care doctor for further evaluation. Call Dr. Marshall's office on Saturday and talk to him about having scan done, and when he wants to follow-up. Clinical Impressions Clinical Impression: Fever, Post op infection Instructions Patient Instructions: DI for COVID-19 (Suspected or Confirmed ) Discharge ED Provider: Gokul Sahu General Adult HPI General Chief complaint: Upper Respiratory Infection Stated complaint: KELLY, fever,surgical site 04/18-abd Time Seen by Provider: 05/03/23 15:31 Mode of Arrival: Ambulatory Source of Information: Patient and Relative Limitations: No Limitations Description of Symptoms (Recalled from ER Triage Doc. by RN): 52 M presents from home with complaints of fever, chills, body aches, and headache. Patient recently admitted and discharged from our hospital s/p abdominal surgery for SBO. Patient denies issues with his surgery. History of Present Illness HPI narrative: 52-year-old male with history of pituitary dysfunction, hypertension, hypercalcemia s/p parathyroidectomy, chronic tobacco abuse, sigmoid colon resection November 2021 secondary to mass, and lysis of adhesions/ostomy takedown with anastomosis on 04/22/2023 presenting with multiple complaints. Patient had follow-up with surgery 1 day prior to arrival and there was concern for superficial wound dehiscence with possible infection. Patient was scheduled for outpatient CT scan with oral and IV contrast. Patient states that he also has a family member who was recently diagnosed with COVID. Patient started having fevers, body aches, headache today. He is taken 1000 mg Tylenol earlier this morning, but is coughing nonproductive cough. Still having the symptoms. He states that Tmax was 102 ?F today. Denies abdominal pain, urinary symptoms, blood per ostomy, vomiting, chest pain, or any other concerns. He states that he presents to the emergency department today because a family member has a concern that he has septic. Related Data Home Medications Medication Instructions Recorded Confirmed amitriptyline 25 mg tablet 25 mg PO DAILY 05/03/23 05/03/23 cholecalciferol (vitamin D3) 125 125 mcg PO DAILY 05/03/23 05/03/23 mcg (5,000 unit) capsule levofloxacin 750 mg tablet 750 mg PO DAILY Abdominal Infection 05/03/23 05/03/23 lisinopril 5 mg tablet 5 mg PO DAILY 05/03/23 05/03/23 ondansetron 4 mg disintegrating 4 mg PO Q8HP PRN Nausea And 05/03/23 05/03/23 tablet Vomiting Previous Rx's Medication Instructions Recorded clindamycin HCl 150 mg capsule 450 mg PO Q8H 7 days #63 caps 05/03/23 Allergies Allergy/AdvReac Type Severity Reaction Status Date / Time aspirin Allergy Verified 05/02/23 10:36 codeine Allergy Verified 05/02/23 10:36 [facility] Disclaimer: The information contained in this section may
[2023-05-03 16:06] LABS: Influenza A, PCR Not Detected (NotDetected); Influenza B, PCR Not Detected (NotDetected)
[2023-05-03 16:15] LABS: Basophils % 0.3 % (0.1-2.0); Eosinophils # 0.2 K/mm3 (0.0-0.4); Eosinophils % 1.4 % (0.1-12.0); Hematocrit 42.4 % (42.0-52.0); Lymphocytes # 1.5 K/mm3 (0.7-4.5); Lymphocytes % 12.2 % (10-50); Mean Corpuscular Hemoglobin 30.9 pg (27.0-31.2); Mean Corpuscular Volume 93.7 fl (80-94); Mean Platelet Volume 9.3 fl (7.4-10.4); Monocytes # 0.9 K/mm3 (0.1-1.0); Monocytes % 7.5 % (1.7-9.3); Neutrophils # 9.5 K/mm3 (1.8-7.8); Neutrophils % 78.6 % (37.0-80.0); Platelet Count 404 K/mm3 (142-424); Red Blood Count 4.52 M/mm3 (4.60-6.20); Red Cell Distribution Width 13.6 % (11.5-17.5)
[2023-05-03 16:18] LABS: Chloride 105 mmol/L (98-107); Sodium 136 mmol/L (136-145)
[2023-05-03 16:20] LABS: Blood Urea Nitrogen 12 mg/dl (9-20); Creatinine Clearance Estimated 78 mL/min (50-200); Estimated Glomerular Filt Rate 45 ml/min (>60); GFR (African American) 55 ML/MIN (>60)
--- NOTE | 2023-05-03 16:20 | PC.NURSE ---
Radiology notified patient finished oral contrast
[2023-05-03 16:21] LABS: Alanine Aminotransferase 47 U/L (12-78); Albumin Level 4.3 g/dl (3.5-5.0); Alkaline Phosphatase 138 U/L (38-126); Aspartate Amino Transferase 41 U/L (17-59); Bilirubin,Total 0.4 mg/dl (0.2-1.3); Calcium 10.1 mg/dl (8.4-10.2); Carbon Dioxide 21 mmol/L (22.0-30.0); Globulin 4.3 g/dL (1.3-3.2); Glucose 129 mg/dl (74-100); Total Protein,Serum 8.6 g/dl (6.3-8.2)
[2023-05-03 16:22] LABS: Lactic Acid 1.7 mmol/L (0.7-2.1)
[2023-05-03 16:30] VITALS: BP 136/92; PULSE 80; RESP 22; O2SAT 93
[2023-05-03 16:32] LABS: Coronavirus 19, PCR Detected (NotDetected)
[2023-05-03 17:00] VITALS: BP 130/85; PULSE 105; RESP 19; O2SAT 96
[2023-05-03 17:31] VITALS: BP 106/63; PULSE 90; RESP 24; O2SAT 97
[2023-05-03 18:30] VITALS: BP 106/73; PULSE 76; RESP 26; O2SAT 97
[2023-05-03 18:54] VITALS: BP 106/73; PULSE 82; RESP 23; TEMP 37; O2SAT 97
== END 2023-05-03 19:00 | disposition home or self-care (01) ==
PROVIDERS: Emergency Provider Emergency Medicine; PCP Family Medicine
DX: U07.1 COVID-19 (principal); R51.9 Headache, unspecified; R50.9 Fever, unspecified; R05.9 Cough, unspecified; T81.42XA Infection following a procedure, deep incisional surgical site, initial encounter; F17.210 Nicotine dependence, cigarettes, uncomplicated; I10 Essential (primary) hypertension; K21.9 Gastro-esophageal reflux disease without esophagitis; E78.5 Hyperlipidemia, unspecified; E21.0 Primary hyperparathyroidism; Z90.49 Acquired absence of other specified parts of digestive tract
CPT/HCPCS: 74177; 80053; 83605; 85025; 87040; 87636; 96361; 96374; 96375; 99284; J0131; J2405; Q9967

== ENCOUNTER → 2023-06-05 08:29 | Outpatient (CLI) | payer OTHER, SELFPAY ==
[2023-06-05 09:31] LABS: Chloride 110 mmol/L (98-107)
[2023-06-05 09:32] LABS: Potassium 4.4 mmoL/L (3.5-5.1); Sodium 140 mmol/L (136-145)
[2023-06-05 09:34] LABS: Alanine Aminotransferase 32 U/L (12-78); Blood Urea Nitrogen 22 mg/dl (9-20); Estimated Glomerular Filt Rate 58 ml/min (>60); GFR (African American) 70 ML/MIN (>60)
[2023-06-05 09:35] LABS: Albumin/Globulin Ratio 1.3 (1.1-1.8); Alkaline Phosphatase 191 U/L (38-126); Anion Gap 16.4 mEq/L (5-15); Aspartate Amino Transferase 37 U/L (17-59); Bilirubin,Total 0.6 mg/dl (0.2-1.3); Calcium 11.5 mg/dl (8.4-10.2); Carbon Dioxide 18 mmol/L (22.0-30.0); Globulin 3.8 g/dL (1.3-3.2); Glucose 121 mg/dl (74-100); Magnesium 1.7 mg/dl (1.6-2.3); Total Protein,Serum 8.8 g/dl (6.3-8.2)
[2023-06-06 18:10] LABS: Calcium, Ionized 5.9 mg/dL (4.5-5.6)
== END ==
PROVIDERS: PCP Family Medicine; Visit Provider Surgery
DX: L24.A9 Irritant contact dermatitis due friction or contact with other specified body fluids (principal)
CPT/HCPCS: 36415; 80053; 82330; 83735

== ENCOUNTER 2023-07-24 12:29 | Outpatient (CLI) | payer OTHER, SELFPAY ==
--- NOTE | 2023-07-24 12:33 | CT_ITS ---
FINAL REPORT CLINICAL HISTORY: HEADACHE FINDINGS: Axial images of the head were obtained without contrast. Coronal reformatted images were also obtained.This study was performed with techniques to keep radiation doses as low as reasonably achievable (ALARA). Individualized dose reduction techniques using automated exposure control or adjustment of mA and/or kV according to the patient's size were employed. There is no evidence of intracranial hemorrhage or mass. The ventricular size is within normal limits. There is no evidence of shift of the midline structures. No abnormal extra axial fluid collection is identified. No skull abnormality is seen on the bone window images. There is mucosal thickening of the left maxillary sinus. IMPRESSION: No acute intracranial abnormality. Reviewed, Interpreted and Dictated by Arsenio Garcias III, MD Transcribed by Minal Loving Authenticated and [facility]
--- NOTE | 2023-07-24 12:33 | CT_ITS ---
FINAL REPORT TECHNIQUE: Thin section axial CT images of the facial bones and sinuses were obtained without contrast. Coronal and sagittal reformatted images were also obtained.This study was performed with techniques to keep radiation doses as low as reasonably achievable, (ALARA). Individualized dose reduction techniques using automated exposure control or adjustment of mA and/or kV according to the patient''''s size were employed. CLINICAL HISTORY: CHRONIC SINUSITIS COMPARISON: None FINDINGS: There is a retention cyst versus polyp present in the left maxillary sinus. There is mild mucosal thickening in the other paranasal sinuses. There is opacification of several right mastoid air cells. No fluid levels are identified. The maxillary ostiomeatal units are narrowed bilaterally by mucosal thickening. There is nasal septal deviation to the left with an associated bony spur. There are 2 small sclerotic foci in the right frontal bone, the largest measuring 6 mm, of uncertain significance. A repeat CT of the sinuses in 6 months would be helpful. IMPRESSION: Findings consistent with mild sinusitis as described. Opacification of several right mastoid air cells. 2 small sclerotic foci in the right frontal bone, the largest measuring 6 mm, of uncertain significance. A follow-up CT of the sinuses might be helpful for further evaluation in 6 months. Reviewed, Interpreted and Dictated by Arsenio Garcias III, MD Transcribed by Jessy Meier Authenticated and . [facility]
== END 2023-07-24 23:59 ==
LOC: RAD 12:30
PROVIDERS: PCP Family Medicine; Visit Provider Family Medicine
DX: R51.9 Headache, unspecified (principal)
CPT/HCPCS: 70450; 70486

== ENCOUNTER 2023-08-23 08:29 | Outpatient (CLI) | payer OTHER, SELFPAY ==
--- NOTE | 2023-08-23 08:30 | FL_ITS ---
FINAL REPORT CLINICAL HISTORY: .colostomy 3:53 fluoro time 5704.78 DAP FINDINGS: GASTROGRAFIN/BARIUM ENEMA HISTORY: History of perforated bowel with ileostomy. Evaluate for ileostomy takedown. PROCEDURE: Initially, Gastrografin contrast was gently instilled via gravity drip. After no extravasation of contrast was identified, barium contrast was gently instilled via gravity drip. Fluoroscopic spot films and overhead radiographs were obtained. Number of images: 43 Fluoro time: 3 minutes 53 seconds DAP: 5704.78 uGym2. FINDINGS: Arch Pad Cementer film is unremarkable. No obstruction is identified. No extravasation of contrast was demonstrated during the exam. There is extensive debris throughout colon. There is extensive diverticulosis of the descending and sigmoid colon. IMPRESSION: No leak or obstruction identified. Extensive diverticulosis. Films reviewed , interpreted and dictated by Dr. Garcias. Transcribed by Nicholas Carter PA-C. Reviewed, Interpreted and Dictated by Arsenio Garcias III, MD Transcribed by TIMOTHY Casarez Authenticated and [facility]
[2023-08-23] MEDS: DIATRIZOATE MEGLUMINE(GASTROGRAFIN) 66%-10% 120ML 120 ML PO ×3 (10:58→10:59)
[2023-08-23] MEDS: BARIUM SULFATE(E-Z-AC);750ML BOTTLE 750 ML PO ×2 (10:59)
== END 2023-08-23 23:59 ==
LOC: RAD 08:30
PROVIDERS: PCP Family Medicine; Visit Provider Surgery
DX: R11.0 Nausea (principal)
CPT/HCPCS: 74270

== ENCOUNTER 2023-09-16 13:35 | Outpatient (CLI) | payer OTHER, SELFPAY ==
[2023-09-16 13:50] LABS: MANUAL DIFFERENTIAL MANUAL DIFFERENTIAL (MANUAL DIFF)
[2023-09-16 14:48] LABS: Alanine Aminotransferase 41 U/L (12-78); Albumin Level 4.4 g/dl (3.5-5.0); Albumin/Globulin Ratio 1.4 (1.1-1.8); Alkaline Phosphatase 120 U/L (38-126); Anion Gap 10.9 mEq/L (5-15); Aspartate Amino Transferase 47 U/L (17-59); Bilirubin,Total 0.7 mg/dl (0.2-1.3); Blood Urea Nitrogen 20 mg/dl (9-20); Calcium 11.4 mg/dl (8.4-10.2); Carbon Dioxide 20 mmol/L (22.0-30.0); Chloride 111 mmol/L (98-107); Estimated Glomerular Filt Rate 53 ml/min (>60); GFR (African American) 64 ML/MIN (>60); Globulin 3.2 g/dL (1.3-3.2); Glucose 116 mg/dl (74-100); Potassium 4.9 mmoL/L (3.5-5.1); Sodium 137 mmol/L (136-145); Total Protein,Serum 7.6 g/dl (6.3-8.2)
[2023-09-16 14:53] LABS: C-Reactive Protein 2.8 mg/L (0-4)
[2023-09-16 15:06] LABS: Calcium 11.5 mg/dl (8.4-10.2)
[2023-09-16 15:12] LABS: Basophils # 0.1 K/mm3 (0-0.2); Basophils % 1.3 % (0.1-2.0); Eosinophils # 0.2 K/mm3 (0.0-0.4); Hematocrit 53.3 % (42.0-52.0); Hemoglobin 16.9 g/dL (14.1-18.0); Lymphocytes # 2.8 K/mm3 (0.7-4.5); Lymphocytes % 36.1 % (10-50); Mean Corpuscular HGB Conc 31.8 g/dL (31.8-35.4); Mean Corpuscular Hemoglobin 31.4 pg (27.0-31.2); Mean Corpuscular Volume 98.9 fl (80-94); Mean Platelet Volume 9.6 fl (7.4-10.4); Monocytes # 0.6 K/mm3 (0.1-1.0); Monocytes % 7.1 % (1.7-9.3); Neutrophils # 4.1 K/mm3 (1.8-7.8); Neutrophils % 52.6 % (37.0-80.0); Platelet Count 186 K/mm3 (142-424); Red Blood Count 5.38 M/mm3 (4.60-6.20); Red Cell Distribution Width 14.8 % (11.5-17.5); White Blood Count 7.8 K/mm3 (4.8-10.8)
[2023-09-16 15:21] LABS: Thyroid Stimulating Hormone 5.99 uIU/mL (0.465-4.68)
[2023-09-16 15:35] LABS: Eosinophils % 1 % (0-3); Lymphocytes % 44 % (10-50); Monocytes % 3 % (2-9); Neutrophils % 52 % (42-76); Total Cells Counted 100
[2023-09-16 15:36] LABS: Platelet Estimate Normal; RBC Morphology Normal
[2023-09-16 15:41] LABS: Erythrocyte Sedimentation Rate 4 mm/hr (0-20)
[2023-09-16 15:57] LABS: Vitamin B12 254 pg/mL (239-931)
[2023-09-16 16:09] LABS: Folate 6.15 ng/mL
== END 2023-09-16 23:59 ==
LOC: LAB 13:36
PROVIDERS: Specialist; PCP Family Medicine; Visit Provider Nurse Practitioner Family
DX: G50.0 Trigeminal neuralgia (principal); J01.01 Acute recurrent maxillary sinusitis; G50.1 Atypical facial pain
CPT/HCPCS: 36415; 80053; 82310; 82607; 82746; 84443; 85007; 85014; 85018; 85048; 85049; 85651; 86140

== ENCOUNTER 2023-09-18 18:08 | Observation (INO) | payer OTHER, SELFPAY ==
[2023-09-18 18:10] VITALS: BP 136/96; PULSE 76; RESP 15; TEMP 36.4; O2SAT 97; BMI 30.9
--- NOTE | 2023-09-18 18:19 | PC.NURSE ---
sent urine to lab
[2023-09-18 18:34] LABS: Microscopic, Urine URINE MICROSCOPIC (MICROSCOPIC)
--- NOTE | 2023-09-18 18:35 | HMH.EDGENADL ---
Discharge Plan Disposition Patient Disposition: Admitted Clinical Impressions Clinical Impression: Hypercalcemia Discharge ED Provider: Anita Bae General Adult HPI General Chief complaint: Recheck/Abnormal Lab/Rx Stated complaint: vomiting,diarhea Time Seen by Provider: 09/18/23 18:15 History of Present Illness HPI narrative: This patient is a 53-year-old male with a history of hyperparathyroidism, hypercalcemia, hypertension, hypothyroidism, CKD, hyperlipidemia, prior colectomy with resultant ostomy presenting with concern for hypercalcemia. According to the patient, he saw his neurologist who obtained labs 09/15 and told him that his calcium was way too high and he needed to follow-up with his primary care provider. His primary care provider reportedly told him today that he is to be admitted to the hospital directly for IV fluids and is not to be discharged until he has endocrine follow-up scheduled. He states that his primary care provider [facility] from [facility], as he is going to be directly admitted for IV fluids. He states about twice a year he has to be admitted for IV fluids to support him through his calcium until his levels returned back to normal. He states that he was told today that his calcium was higher than it has ever been. On medical record review, patient's calcium is 11.4 on 09/15. On 06/05, his calcium was 11.5. In April of last year, it was around 10. I did note that it has been as high as 14.7 in February 2022. He notes he had some nausea and increased ostomy output today, but denies any other concerns or complaints. He notes he is currently being worked up for headaches and is supposed to be seeing surgery to have his colostomy reversed. Related Data Home Medications Medication Instructions Recorded Confirmed lisinopril 5 mg tablet 5 mg PO DAILY 05/03/23 09/03/23 amitriptyline 100 mg tablet 100 mg PO 08/08/23 09/03/23 Previous Rx's Medication Instructions Recorded ondansetron 4 mg disintegrating 4 mg PO Q8HP PRN Nausea And 05/14/23 tablet Vomiting #14 tabs Allergies Allergy/AdvReac Type Severity Reaction Status Date / Time aspirin Allergy Verified 09/03/23 13:12 codeine Allergy Verified 09/03/23 13:12 [facility] Disclaimer: The information contained in this section may have been updated after the patient was seen, as this information can be updated by other users. Medical History Atypical facial pain Trigeminal neuralgia Sinusitis Acute kidney injury superimposed on CKD Insomnia Depression HLD (hyperlipidemia) ARIELLA (acute kidney injury) Cellulitis C. difficile diarrhea Acute lumbosacral myofascial strain Non-healing wound History of pleural effusion Dyspnea on exertion Smoking greater than 30 pack years Thyroid Nodule Parathyroid adenoma Thyroid disorder GERD (gastroesophageal reflux disease) Primary hyperparathyroidism Severe protein-calorie malnutrition Tobacco use disorder Hypercalcemia Vasectomy planned Intra-abdominal abscess post-procedure Ileostomy in place Hypercalcemia ARIELLA (acute kidney injury) Hypertension Pituitary dysfunction Dehisced intestinal anastomosis History of depression Depressed Hyperlipemia Hypertension Renal cyst Surgical History Hx of parathyroidectomy History of partial thyroidectomy History of colonoscopy History of vasectomy Status post partial colectomy Family History Other No significant family history Social History Smoking Status: Current every day smoker tobacco type: cigarettes packs per day: 1 years smoked: 40 alcohol intake: never substance use type: former substance user and crack/cocaine current occupational status: disabled Travel in the last 8 weeks: None household members: none housing: house lives independently: Yes marital status: education level: college service: Yes senior living: No current occupational exposures/hazards: No caffeine: Yes special laith needs: No agree to transfusion: No do you feel safe at home: Yes victim of physical abuse: No victim of emotional abuse: No victim of sexual abuse: No would you like helpful sources: No ROS Obtained: Yes All systems reviewed & no additional complaints except as documented Physical Exam General General appearance: alert, in no apparent distress and obese Head Head exam: atraumatic and normocephalic Eye Eye exam: Present normal appearance, PERRL and EOMI ENT ENT exam: Present normal exam, normal oropharynx, mucous membranes moist and normal external ear exam Neck Neck exam: Present normal inspection, full ROM and trachea midline; Absent tenderness Chest Chest inspection: Present normal inspection and symmetric chest wall rise; Absent tenderness Respiratory Respiratory exam: Present normal lung sounds bilaterally; Absent respiratory distress, wheezes, stridor or accessory muscle use Cardiovascular Cardiovascular exam: Present regular rate and normal rhythm Abdominal Exam Abdominal exam: Present soft; Absent distention, tenderness or guarding Extremities Exam Extremities exam: Present normal inspection, full ROM and normal capillary refill; Absent tenderness or edema Back Exam Back exam: Present normal inspection and full ROM; Absent tenderness Neurological Exam Neurological exam: Present alert, oriented X3, CN II-XII intact and normal gait; Absent motor sensory deficit Psychiatric Psychiatric exam: Present normal affect and normal mood Skin Skin exam: Present warm and dry Medical Decision Making Medical Records Medical records reviewed: Yes I reviewed the patient's medical records. Gabo Inquiry Pt receiving controlled substance: No Vital Signs: 09/18/23 18:10 Temperature 97.6 F Temperature Source Oral Pulse Rate [Left Radial] 76 Respiratory Rate 15 Blood Pressure [Right Arm] 136/96 H Blood Pressure Mean [Right Arm] 109 02 Sat by Pulse Oximetry 97 Oxygen Delivery Method Room Air Lab Data Lab results reviewed: Yes I reviewed the patient's lab results. Lab Results 09/18/23 18:15: Urine Color Yellow, Urine Appearance Clear, Urine pH 6.0, Ur Specific [place] 1.020, Urine Protein Negative, Urine Glucose (UA) Negative, Urine Ketones Negative, Urine Blood 1+, Urine Nitrate Negative, Urine Bilirubin Negative, Urine Urobilinogen 0.2, Ur Leukocyte Esterase Negative, Urine RBC Occasional, Urine WBC None, Ur Squamous Epith Cells Occasional, Urine Bacteria None 09/18/23 18:27: WBC 8.4, RBC 5.30, Hgb 16.7, Hct 51.1, MCV 96.5 H, MCH 31.5 H, MCHC 32.7, RDW 14.9, Plt Count 184, MPV 8.5, Neut % (Auto) 56.2, Lymph % (Auto) 33.7, [place] % (Auto) 5.1, Eos % (Auto) 3.7, Baso % (Auto) 1.3, Neut # (Auto) 4.7, Lymph # (Auto) 2.8, [place] # (Auto) 0.4, Eos # (Auto) 0.3, Baso # (Auto) 0.1, Sodium 135 L, Potassium 4.2, Chloride 111 H, Carbon Dioxide 20 L, Anion Gap 8.2, BUN 19, Creatinine 1.30 H, Estimated Creat Clear 91, Estimated GFR 57 L, Est GFR ( Amer) 69, Glucose 151 H, Calcium 11.0 H, Total Bilirubin 0.6, AST 56, ALT 51, Alkaline Phosphatase 147 H, Total Protein 7.4, Albumin 4.1, Globulin 3.3 H, Albumin/Globulin Ratio 1.2, PTH Intact 328.2 H 09/18/23 19:07: VBG pH 7.33, VBG pCO2 36.0, VBG pO2 65.0 H, VBG HCO3 18.6 L, VBG Total CO2 19.7 L, VBG O2 Saturation 93.1 H, VBG Base Excess -7.4 L, VBG Lactic Acid 2.3 H 09/18/23 18:27 09/18/23 18:27 Orders (Tests/Meds): ED MEDICATIONS Generic Name Dose Route Start Last Admin Trade Name Freq PRN Reason Stop Dose Admin Acetaminophen 650 mg 09/18/23 19:41 09/18/23 21:42 Acetaminophen 325mg Tab PO 10/18/23 19:40 650 mg Q4HP PRN Administration Fever or Mild Pain (1-3) Enoxaparin Sodium 40 mg 09/18/23 19:45 Enoxaparin 40mg/0.4ml Syringe SQ 10/18/23 19:44 DAILY SAVITA Sodium Chloride 1,000 mls @ 100 mls/hr 09/18/23 19:45 09/18/23 21:42 Sod Chlor 0.9% 1000ml Bag IV 10/18/23 19:44 100 mls/hr .Q10H SAVITA Administration Nicotine 21 mg 09/18/23 19:41 09/18/23 21:42 Nicotine 21mg/24hr Patch TD 10/18/23 19:40 21 mg DAILYP PRN Administration Nicotine Cravings Ondansetron HCl 4 mg 09/18/23 19:41 09/18/23 21:42 Ondansetron 4mg/2ml Vial IV 10/18/23 19:40 4 mg Q8HP PRN Administration Nausea Sodium Chloride 10 ml 09/18/23 19:41 Sodium Chloride 0.9% 10ml Flush Syringe IV 10/18/23 19:40 NEEDED PRN Maintain IV Site Discontinued Medications Generic Name Dose Route Start Last Admin Trade Name Freq PRN Reason Stop Dose Admin Lactated Ringer's 1,000 mls @ 999 mls/hr 09/18/23 18:28 09/18/23 18:53 Lactated Ringer's 1000 Ml Bag IV 09/18/23 19:28 Not Given .Q1H1M ONE Sodium Chloride 1,000 mls @ 999 mls/hr 09/18/23 18:29 09/18/23 18:49 Sod Chlor 0.9% 1000ml Bag IV 09/18/23 19:29 999 mls/hr .Q1H1M ONE Administration ORDERS Category Date Time Status Calcium, Ionized Stat Lab 09/18/23 20:01 Received Complete Blood Count Auto Diff Stat Lab 09/18/23 18:27 Completed Comprehensive Metabolic Panel Stat Lab 09/18/23 18:27 Completed Intact Parathyroid Hormone Stat Lab 09/18/23 18:27 Completed PTH Related Peptide Stat Lab 09/18/23 20:01 Received Urinalysis and Microscopic Stat Lab 09/18/23 18:15 Completed VBG [Venous Blood Gas] Stat RT 09/18/23 19:07 Completed ECG Data Tracing #1: I reviewed this ECG and interpreted as documented below: Normal sinus rhythm with a ventricular rate of 70 bpm. Incomplete right bundle branch block noted. Left axis deviation. Normal QTc ECG initial impression date: 09/18/23 ECG initial impression time: 18:40 Medical Decision Narrative: In summary, this patient is a 53-year-old male presenting to the Emergency Department for evaluation of hypercalcemia. Differential diagnoses considered include but are not limited to hyperparathyroidism, dehydration, hypercalcemia, EKG change. Ruling out the most morbid conditions drove assessment. I reviewed patient's past medical records and noted history of parathyroid adenomas, for which she has had a partial parathyroidectomy but has still persistently had hypercalcemia. Ultimately, it is unclear why the patient was sent here today exactly, as his calcium is around where it has been as of late and he is not having any acute symptoms aside from nausea and increased ostomy output, which I would doubt are related to hypercalcemia but it is not impossible. Workup included CBC, CMP, ionized calcium, EKG. EKG obtained is reassuring. He was given a bolus of normal saline. Labs were obtained which demonstrated calcium of 11, which is not significantly far off from the patient's baseline. Given this, I called and had an interactive discussion with his primary care provider, Dr. Brandy Ramírez in [place], who advised that the patient had complained to her that he was having general weakness, did not feel right, and was having increased ostomy output. She is concerned that dehydration could affect his hypercalcemia and make him more symptomatic. Given this, she felt that he would benefit from further evaluation and management, especially given his complicated history. After discussion with the patient, he does not feel comfortable going home, so I had an interactive discussion with the hospitalist who agreed that he would admit the patient for hypercalcemia management. Patient was admitted in stable condition. Critical Care Critical Care Time Critical Care Time: No
--- NOTE | 2023-09-18 18:37 | ECG_ITS ---
APPROVED REPORT Exam: Resting ECG HR:70 bpm ECG Measurements Heart Rate 70 AXES AK 164 P 70 QRSd 109 QRS -31 QT 364 T 143 QTc 385 Conclusion SINUS RHYTHM LEFT AXIS DEVIATION [QRS AXIS < -30] INCOMPLETE RIGHT BUNDLE BRANCH BLOCK [90+ ms QRS DURATION, TERMINAL R IN V1/V2, 40+ ms S IN I/aVL/V4/V5/V6] POSSIBLE SEPTAL MYOCARDIAL INFARCTION , OF INDETERMINATE AGE [30 ms Q WAVE IN V1/V2] Electronically signed by : FRANK RODRIGUEZ, 09/18/2023 23:25:51
[2023-09-18 18:38] LABS: Basophils # 0.1 K/mm3 (0-0.2); Basophils % 1.3 % (0.1-2.0); Eosinophils # 0.3 K/mm3 (0.0-0.4); Eosinophils % 3.7 % (0.1-12.0); Hematocrit 51.1 % (42.0-52.0); Hemoglobin 16.7 g/dL (14.1-18.0); Lymphocytes # 2.8 K/mm3 (0.7-4.5); Lymphocytes % 33.7 % (10-50); Mean Corpuscular HGB Conc 32.7 g/dL (31.8-35.4); Mean Corpuscular Hemoglobin 31.5 pg (27.0-31.2); Mean Corpuscular Volume 96.5 fl (80-94); Mean Platelet Volume 8.5 fl (7.4-10.4); Monocytes # 0.4 K/mm3 (0.1-1.0); Monocytes % 5.1 % (1.7-9.3); Neutrophils # 4.7 K/mm3 (1.8-7.8); Neutrophils % 56.2 % (37.0-80.0); Platelet Count 184 K/mm3 (142-424); Red Cell Distribution Width 14.9 % (11.5-17.5); White Blood Count 8.4 K/mm3 (4.8-10.8)
[2023-09-18 18:42] LABS: Chloride 111 mmol/L (98-107); Potassium 4.2 mmoL/L (3.5-5.1); Sodium 135 mmol/L (136-145)
[2023-09-18 18:43] LABS: Appearance,Urine CLEAR (Clear); Bilirubin,Urine Negative (Negative); Blood, Urine 1+ (Negative); Color,Urine YELLOW (Yellow); Glucose,Urine (UA) Negative (Negative); Ketones,Urine Negative (Negative); Leukocyte Esterase,Urine Negative (Negative); Nitrate,Urine Negative (Negative); Protein,Urine Negative (Negative); Urobilinogen,Urine 0.2 EU/dl (0.2)
[2023-09-18 18:44] LABS: Blood Urea Nitrogen 19 mg/dl (9-20); Creatinine Clearance Estimated 91 mL/min (50-200); Estimated Glomerular Filt Rate 57 ml/min (>60); GFR (African American) 69 ML/MIN (>60)
[2023-09-18 18:45] LABS: Alanine Aminotransferase 51 U/L (12-78); Albumin Level 4.1 g/dl (3.5-5.0); Albumin/Globulin Ratio 1.2 (1.1-1.8); Alkaline Phosphatase 147 U/L (38-126); Anion Gap 8.2 mEq/L (5-15); Aspartate Amino Transferase 56 U/L (17-59); Bilirubin,Total 0.6 mg/dl (0.2-1.3); Carbon Dioxide 20 mmol/L (22.0-30.0); Globulin 3.3 g/dL (1.3-3.2); Glucose 151 mg/dl (74-100); Total Protein,Serum 7.4 g/dl (6.3-8.2)
[2023-09-18] MEDS: 0.9 % SODIUM CHLORIDE 1000ML 1,000 ML 999 ML IV (18:49)
[2023-09-18 19:01] LABS: RBC,Urine Occasional #/hpf (0-3); Squamous Epithelial Cell,Urine Occasional #/hpf (0-5)
--- NOTE | 2023-09-18 19:05 | PC.NURSE ---
call made to powerhouse mechanic supervisor for bed placement
--- NOTE | 2023-09-18 19:05 | PC.NURSE ---
Called lab & respiratory in regards to VBG order
[2023-09-18 19:12] LABS: VBG Base Excess -7.4 mmol/L (-2.4-2.3); VBG HCO3 18.6 mmol/L (23-30); VBG Oxygen Saturation 93.1 % (50-70); VBG PH 7.33 mmol/L (7.31-7.41); VBG Total CO2 19.7 mmol/L (23-27)
[2023-09-18 19:13] LABS: Lactate Venous 2.3 mmol/L (0.4-2.0)
--- NOTE | 2023-09-18 19:17 | PC.NURSE ---
Attempted to call report. Nurse is still in report and will call me back when she is done.
--- NOTE | 2023-09-18 19:37 | PC.NURSE ---
Report given to Rabia
[2023-09-18 19:38] VITALS: BP 122/70; PULSE 65; RESP 18; TEMP 36.8; O2SAT 98
--- NOTE | 2023-09-18 19:43 | EXP.HP ---
History of Present Illness *Admission Date: 09/18/23 *Reason for visit:: abnormal labs *History of present illness: This is a 53-year-old male with a PMHx of hyperparathyroidism, chronic hypercalcemia, hypertension, hypothyroidism, CKD, hyperlipidemia, prior colectomy with resultant ostomy presenting with concern for hypercalcemia. See below ED documentation about HPI: According to the patient, he saw his neurologist who obtained labs 09/15 and told him that his calcium was way too high and he needed to follow-up with his primary care provider. His primary care provider reportedly told him today that he is to be admitted to the hospital directly for IV fluids and is not to be discharged until he has endocrine follow-up scheduled. He states that his primary care provider told him that [facility] is already aware and has been from upstairs, as he is going to be directly admitted for IV fluids. He states about twice a year he has to be admitted for IV fluids to support him through his calcium until his levels returned back to normal. He states that he was told today that his calcium was higher than it has ever been. On medical record review, patient's calcium is 11.4 on 09/15. On 06/05, his calcium was 11.5. In April of last year, it was around 10. I did note that it has been as high as 14.7 in February 2022. He notes he had some nausea and increased ostomy output today, but denies any other concerns or complaints. He notes he is currently being worked up for headaches and is supposed to be seeing surgery to have his colostomy reversed. Admitted for further monitoring [facility] Disclaimer: The information contained in this section may have been updated after the patient was seen, as this information can be updated by other users. Medical History Atypical facial pain Trigeminal neuralgia Sinusitis Acute kidney injury superimposed on CKD Insomnia Depression HLD (hyperlipidemia) ARIELLA (acute kidney injury) Cellulitis C. difficile diarrhea Acute lumbosacral myofascial strain Non-healing wound History of pleural effusion Dyspnea on exertion Smoking greater than 30 pack years Thyroid Nodule Parathyroid adenoma Thyroid disorder GERD (gastroesophageal reflux disease) Primary hyperparathyroidism Severe protein-calorie malnutrition Tobacco use disorder Hypercalcemia Vasectomy planned Intra-abdominal abscess post-procedure Ileostomy in place Hypercalcemia ARIELLA (acute kidney injury) Hypertension Pituitary dysfunction Dehisced intestinal anastomosis History of depression Depressed Hyperlipemia Hypertension Renal cyst Surgical History Hx of parathyroidectomy History of partial thyroidectomy History of colonoscopy History of vasectomy Status post partial colectomy Family History Other No significant family history Social History Smoking Status: Current every day smoker tobacco type: cigarettes packs per day: 1 years smoked: 40 alcohol intake: never substance use type: former substance user and crack/cocaine current occupational status: disabled Travel in the last 8 weeks: None household members: none housing: house lives independently: Yes marital status: education level: college service: Yes residential: No current occupational exposures/hazards: No caffeine: Yes special laith needs: No agree to transfusion: No do you feel safe at home: Yes victim of physical abuse: No victim of emotional abuse: No victim of sexual abuse: No would you like helpful sources: No Review of Systems Review of Systems Review of systems:: pertinent systems reviewed and negative unless documented below Meds Home Medications and Allergies Home Medications Medication Instructions Recorded Confirmed Type lisinopril 5 mg tablet 5 mg PO DAILY 05/03/23 09/03/23 History ondansetron 4 mg disintegrating 4 mg PO Q8HP PRN Nausea And 05/14/23 09/03/23 Rx tablet Vomiting #14 tabs amitriptyline 100 mg tablet 100 mg PO 08/08/23 09/03/23 History New Prescriptions to Start Prescriptions: Allergies Allergy/AdvReac Type Severity Reaction Status Date / Time aspirin Allergy Verified 09/03/23 13:12 codeine Allergy Verified 09/03/23 13:12 Exam Data for Last 24 hours Vital signs and Labs for Last 24 Hours: Temp Pulse Resp BP Pulse Ox O2 Del Method 98.3 F 65 18 122/70 97 Room Air 09/18/23 19:38 09/18/23 19:38 09/18/23 19:38 09/18/23 19:38 09/18/23 18:10 09/18/23 19:38 Laboratory Results - last 24 hr 09/18/23 18:15: Urine Color Yellow, Urine Appearance Clear, Urine pH 6.0, Ur Specific [place] 1.020, Urine Protein Negative, Urine Glucose (UA) Negative, Urine Ketones Negative, Urine Blood 1+, Urine Nitrate Negative, Urine Bilirubin Negative, Urine Urobilinogen 0.2, Ur Leukocyte Esterase Negative, Urine RBC Occasional, Urine WBC None, Ur Squamous Epith Cells Occasional, Urine Bacteria None 09/18/23 18:27: WBC 8.4, RBC 5.30, Hgb 16.7, Hct 51.1, MCV 96.5 H, MCH 31.5 H, MCHC 32.7, RDW 14.9, Plt Count 184, MPV 8.5, Neut % (Auto) 56.2, Lymph % (Auto) 33.7, [place] % (Auto) 5.1, Eos % (Auto) 3.7, Baso % (Auto) 1.3, Neut # (Auto) 4.7, Lymph # (Auto) 2.8, [place] # (Auto) 0.4, Eos # (Auto) 0.3, Baso # (Auto) 0.1, Sodium 135 L, Potassium 4.2, Chloride 111 H, Carbon Dioxide 20 L, Anion Gap 8.2, BUN 19, Creatinine 1.30 H, Estimated Creat Clear 91, Estimated GFR 57 L, Est GFR ( Amer) 69, Glucose 151 H, Calcium 11.0 H, Total Bilirubin 0.6, AST 56, ALT 51, Alkaline Phosphatase 147 H, Total Protein 7.4, Albumin 4.1, Globulin 3.3 H, Albumin/Globulin Ratio 1.2 09/18/23 19:07: VBG pH 7.33, VBG pCO2 36.0, VBG pO2 65.0 H, VBG HCO3 18.6 L, VBG Total CO2 19.7 L, VBG O2 Saturation 93.1 H, VBG Base Excess -7.4 L, VBG Lactic Acid 2.3 H I & O for Last 24 hours: Intake & Output 09/15/23 09/16/23 09/17/23 09/18/23 23:59 23:59 23:59 23:59 Weight 100.698 kg Constitutional Constitutional: no acute distress *Routine HEENT Exam Head: Present normocephalic Eye: Present EOMI ENT: Present mucous membranes dry *Routine Respiratory Exam Respiratory: Present CTA bilaterally *Routine Cardiovascular Exam Cardiovascular: Present RRR *Routine Abdominal Exam Abdominal: Present soft Comments: Incisions are clean. Mild tenderness. No evidence of any infection. Ileostomy with significant amount of liquid and gaseous output. *Routine Rectal Exam Rectal:: deferred *Routine Genitalia Exam Genitalia:: deferred Assessment and Plan *Assessment and plan (1) Hypercalcemia: Status: Acute Category: Medical Code(s): E83.52 - Hypercalcemia (2) Hypertension: Status: Chronic Qualifiers: Hypertension type: unspecified Qualified Code(s): I10 - Essential (primary) hypertension Category: Medical Code(s): I10 - Essential (primary) hypertension (3) GERD (gastroesophageal reflux disease): Status: Chronic Qualifiers: Esophagitis presence: esophagitis presence not specified Qualified Code(s): K21.9 - Gastro-esophageal reflux disease without esophagitis Category: Medical Code(s): K21.9 - Gastro-esophageal reflux disease without esophagitis (4) History of diverticulitis: Status: Acute Category: Medical Code(s): Z87.19 - Personal history of other diseases of the digestive system (5) Tobacco use: Status: Acute Category: Social Hx Code(s): Z72.0 - Tobacco use Plan 53-year-old male with a PMHx of hyperparathyroidism, chronic hypercalcemia, hypertension, hypothyroidism, CKD, hyperlipidemia, prior colectomy with resultant ostomy presenting with concern for hypercalcemia. On medical record review, patient's calcium is 11.4 on 09/15. On 06/05, his calcium was 11.5. In April of last year, it was around 10. I did note that it has been as high as 14.7 in February 2022. He notes he had some nausea and increased ostomy output today, but denies any other concerns or complaints. Discussed with ED about findings. agreed for admission. plan as follow - Chronic mild hypercalcemia: Admit patient for medical services. Dispo med surg continue agressive IV hydration. 2L of LR given at ED. Cont NS @100ml/hr repeat CMP in the morning Cont cardiac monitoring. EKG reviewed. Negative monitor the rest of VS per unit avoid calcium diet or supplement. Avoid Thiazide diuretic. -HTN: on lisinopril GERD: Protonix Hx of diverticulitis s/p ostomy: infected site. Improved Suportive care. nursing to assist with ostomy changes. educated about infection prevention and clean changes technics zofran for nauseas tylenol for pain management. Tobacco use> On nicotnie patch Lovenox for DVT ppx. On protonix Full code
[2023-09-18 20:00] VITALS: BP 148/85; PULSE 63; RESP 16; TEMP 36.6; O2SAT 99; BMI 30.5
[2023-09-18 20:23] LABS: Intact Parathyroid Hormone 328.2 pg/mL (7.5-53.5)
[2023-09-18] MEDS: ONDANSETRON 4MG/2ML VIAL 4 MG IV (21:42)
[2023-09-18] MEDS: NICOTINE 21MG/24HR PATCH 21 MG TD (21:42)
[2023-09-18] MEDS: ACETAMINOPHEN 325MG TAB 650 MG PO (21:42)
[2023-09-18] MEDS: 0.9 % SODIUM CHLORIDE 1000ML 1,000 ML 100 ML IV (21:42)
[2023-09-18] MEDS: ENOXAPARIN 40MG/0.4ML SYRINGE 40 MG SQ (22:26)
[2023-09-18 23:14] LABS: Reflex Lactic Add Lactic Reflex
[2023-09-18 23:49] LABS: Lactic Acid Follow Up (RFLX 1) 1.2 mmol/L (0.7-2.1)
[2023-09-19 04:00] VITALS: BP 111/73; PULSE 57; RESP 16; TEMP 36.6; O2SAT 96; BMI 30.5
[2023-09-19 06:21] LABS: Chloride 115 mmol/L (98-107); Sodium 138 mmol/L (136-145)
[2023-09-19 06:22] LABS: Potassium 4.2 mmoL/L (3.5-5.1)
[2023-09-19 06:24] LABS: Alanine Aminotransferase 41 U/L (12-78); Alkaline Phosphatase 135 U/L (38-126); Anion Gap 8.2 mEq/L (5-15); Aspartate Amino Transferase 43 U/L (17-59); Bilirubin,Total 0.3 mg/dl (0.2-1.3); Blood Urea Nitrogen 18 mg/dl (9-20); Carbon Dioxide 19 mmol/L (22.0-30.0); Creatinine Clearance Estimated 90 mL/min (50-200); Estimated Glomerular Filt Rate 57 ml/min (>60); GFR (African American) 69 ML/MIN (>60); Glucose 92 mg/dl (74-100); Phosphorous 3.1 mg/dl (2.5-4.5)
[2023-09-19 06:25] LABS: Albumin Level 3.5 g/dl (3.5-5.0); Albumin/Globulin Ratio 1.2 (1.1-1.8); Calcium 10.4 mg/dl (8.4-10.2); Globulin 2.9 g/dL (1.3-3.2); Total Protein,Serum 6.4 g/dl (6.3-8.2)
[2023-09-19 06:27] LABS: Basophils # 0.1 K/mm3 (0-0.2); Basophils % 0.8 % (0.1-2.0); Eosinophils # 0.3 K/mm3 (0.0-0.4); Eosinophils % 3.2 % (0.1-12.0); Hematocrit 48.1 % (42.0-52.0); Hemoglobin 15.2 g/dL (14.1-18.0); Lymphocytes # 2.8 K/mm3 (0.7-4.5); Mean Corpuscular HGB Conc 31.5 g/dL (31.8-35.4); Mean Corpuscular Hemoglobin 30.7 pg (27.0-31.2); Mean Corpuscular Volume 97.3 fl (80-94); Mean Platelet Volume 8.7 fl (7.4-10.4); Monocytes # 0.7 K/mm3 (0.1-1.0); Monocytes % 8.6 % (1.7-9.3); Neutrophils % 51.4 % (37.0-80.0); Platelet Count 169 K/mm3 (142-424); Red Blood Count 4.94 M/mm3 (4.60-6.20); White Blood Count 7.8 K/mm3 (4.8-10.8)
[2023-09-19] MEDS: ONDANSETRON 4MG/2ML VIAL 4 MG IV (07:38)
--- NOTE | 2023-09-19 07:44 | HMH.PHAINT1 ---
Pharmacy Intervention Comments: HOME MEDICATION LIST VERIFIED VIA LAST OFFICE VISIT IN AUGUST
[2023-09-19 08:00] VITALS: BP 126/68; PULSE 69; RESP 19; TEMP 36.8; O2SAT 96
[2023-09-19] MEDS: 0.9 % SODIUM CHLORIDE 1000ML 500 ML 999 ML IV (09:18)
[2023-09-19] MEDS: ENOXAPARIN 40MG/0.4ML SYRINGE 40 MG SQ (09:18)
--- NOTE | 2023-09-19 10:03 | HMH.OTEV ---
OT Inpatient Evaluation Rehab OT IP Evaluation Start: 09/19/23 09:00 Freq: ONCE Status: Active Protocol: Document 09/19/23 10:00 YAHAIRA (Rec: 09/19/23 10:03 YAHAIRA [id number]) Rehab OT IP Assessment Subjective History This is a 53-year-old male with a PMHx of hyperparathyroidism, chronic hypercalcemia, hypertension, hypothyroidism, CKD, hyperlipidemia, prior colectomy with resultant ostomy presenting with concern for hypercalcemia. See below ED documentation about HPI: According to the patient, he saw his neurologist who obtained labs 09/15 and told him that his calcium was way too high and he needed to follow- up with his primary care provider. His primary care provider reportedly told him today that he is to be admitted to the hospital directly for IV fluids and is not to be discharged until he has endocrine follow-up scheduled. He states that his primary care provider told him that [facility]urg is already aware and has been from upstairs, as he is going to be directly admitted for IV fluids. He states about twice a year he has to be admitted for IV fluids to support him through his calcium until his levels returned back to normal . He states that he was told today that his calcium was higher than it has ever been. On medical record review, patient's calcium is 11.4 on . On 06/05, his calcium was 11.5. In April of last year, it was around 10. I did note that it has been as high as 14.7 in February 2022. He notes he had some nausea and increased ostomy output today, but denies any other concerns or complaints. He notes he is currently being worked up for headaches and is supposed to be seeing surgery to have his colostomy reversed. Admitted for further monitoring. Patient lives alone in [address] home with no CRISTOBAL. Patient was independent with all ADLs and fx'l mobility. Subjective I can get up. Analysis Patient's ADLs and fx 'l mobility during initial evaluation. Patient completed all bed mobility, transfers, ambulation and ADLs independently. No LOB noted. Patient able to maneuver > 100ft with no LOB noted Objective Patient Orientation Person,Place,Time,Name,Age, Birthday,Month,Year Right Upper Extremity Gross ROM WFL Left Upper Extremity Gross ROM WFL Bed Mobility bed mobility - supine/sit Assist Level Independent Transfer Training Sit/Stand/Pivot Transfer Assist Level Independent Chair Transfer Ability Independent Chair Transfer Technique Sit to/from Ambulatory Chair Transfer Assistive Devices None Lower Body Dressing Ability Independent Rehab OT IP prob,goals,plan Problems Date of Evaluation: 09/19/23 Rehab Potential Rehab Potential Innapropriate for Skilled Therapy Discharge Plan OT Discharge Plan Patient appears to be at baseline. Patient to return home after medical d/c. Eval Complexity Eval Charge Codes 55675 - Low Complexity PHYSICIAN CERTIFICATION: I certify the specified therapy services for Garret Lopez are required, authorized, and reviewed every 30 days.
--- NOTE | 2023-09-19 10:25 | HMH.PTEV ---
Physical Therapy Evaluation Rehab PT IP Evaluation Start: 09/19/23 09:00 Freq: ONCE Status: Active Protocol: Document 09/19/23 10:03 GLENN (Rec: 09/19/23 10:24 GLENN [id number]) Subjective/History History History The patient is a 53 yowm who presents to [facility] with primary complaints of elevated calcium levels. He has PMHx of hyperparathyroidism, chronic hypercalcemia, hypertension, hypothyroidism, CKD, hyperlipidemia, prior colectomy with resultant ostomy presenting with concern for hypercalcemia. Subjective Subjective Patient is agreeable to PT and oriented x4. Patient reports that he is independent at baseline and is able to do everything just fine right now . Patient reports that he just needed some fluids to correct his calcium levels. New diagnosis of cancer in past 12 No months? Rehab PT IP Eval Objective Appearance Patient Behavior Appropriate,Cooperative, Patient Baseline Patient Orientation Person,Place,Time,Birthday Difficulty following instructions none Speech Pattern Clear,Patient Baseline Ambulation Patient Able to Ambulate Yes Ambulation Observation IP General Gait Pattern Observation No Deviations/Normal Ambulation Distance (feet) 120 Ambulation Assistive Device None Ambulation Ability Independent Balance Ability to Arise Able, uses arms to help Standing Balance Narrow stance w/o support Dynamic Sitting Balance Ability Normal Dynamic Standing Balance Ability Normal Transfers Bed Transfer Ability Independent Chair Transfer Ability Independent Sit to Stand Bed Transfer Ability Independent Sit to Stand Chair Transfer Ability Independent Rehab PT IP prob,goals,plan Problems Date of Evaluation: 09/19/23 Discharge Plan PT Discharge Plan Patient presents for inital evaluation. Patient presents at baseline in functional mobility, transfers, and ambulation. Skilled PT is not indicated for this patient during his stay. Upon discharge, the patient is most appropriate for discharge to home. Eval Complexity Eval Charge Codes 93691 - Moderate Complexity PHYSICIAN CERTIFICATION: I certify the specified therapy services for Garret Lopez are required, authorized, and reviewed every 30 days.
--- NOTE | 2023-09-19 10:44 | HMH.PHAINT1 ---
Pharmacy Intervention Comments: DISCHARGE MEDICATION COUNSELING WAS PROVIDED TO PATIENT WITH NO FURTHER QUESTIONS.
[2023-09-20 15:12] LABS: Calcium, Ionized 5.8 mg/dL (4.5-5.6)
--- NOTE | 2023-09-23 13:28 | CARE MANAGER ---
Attempted to contact patient related to hospital discharge x 2. Left VM message.
[2023-09-24 08:30] LABS: PTH Related Peptide < 2.0
--- NOTE | 2023-10-01 10:49 | EXP.DC.SUM ---
General Admission date:: 09/18/23 Discharge date: 09/19/23 HPI HPI HPI: This is a 53-year-old male with a PMHx of hyperparathyroidism, chronic hypercalcemia, hypertension, hypothyroidism, CKD, hyperlipidemia, prior colectomy with resultant ostomy presenting with concern for hypercalcemia. See below ED documentation about HPI: According to the patient, he saw his neurologist who obtained labs 09/15 and told him that his calcium was way too high and he needed to follow-up with his primary care provider. His primary care provider reportedly told him today that he is to be admitted to the hospital directly for IV fluids and is not to be discharged until he has endocrine follow-up scheduled. He states that his primary care provider told him that [facility] is already aware and has been from upstairs, as he is going to be directly admitted for IV fluids. He states about twice a year he has to be admitted for IV fluids to support him through his calcium until his levels returned back to normal. He states that he was told today that his calcium was higher than it has ever been. On medical record review, patient's calcium is 11.4 on 09/15. On 06/05, his calcium was 11.5. In April of last , it was around 10. I did note that it has been as high as 14.7 in February 2022. He notes he had some nausea and increased ostomy output today, but denies any other concerns or complaints. He notes he is currently being worked up for headaches and is supposed to be seeing surgery to have his colostomy reversed. Admitted for further monitoring Hospital Course Hospital Course Hospital Course: 53-year-old male with a PMHx of hyperparathyroidism, chronic hypercalcemia, hypertension, hypothyroidism, CKD, hyperlipidemia, prior colectomy with resultant ostomy presenting with concern for hypercalcemia. On medical record review, patient's calcium is 11.4 on 09/15. On 06/05, his calcium was 11.5. In April of last , it was around 10. I did note that it has been as high as 14.7 in February 2022. He notes he had some nausea and increased ostomy output today, but denies any other concerns or complaints. Discussed with ED about findings. agreed for admission. plan as follow - Chronic mild hypercalcemia: Hypercalcemia improved with IV fluid therapy, he appears to have hyperPTH and patient was given ENT referrral. patient verbalized understanding of follow up appointments -HTN: on lisinopril GERD: Protonix Hx of diverticulitis s/p ostomy: infected site. Improved Suportive care. nursing to assist with ostomy changes. educated about infection prevention and clean changes technics zofran for nauseas tylenol for pain management. Tobacco use> On nicotnie patch stable for discharge Exam Data for Last 24 hours Vital signs and Labs for Last 24 Hours: Temp Pulse Resp BP Pulse Ox O2 Del Method 98.2 F 69 19 126/68 96 Room Air 09/19/23 08:00 09/19/23 08:00 09/19/23 08:00 09/19/23 08:00 09/19/23 08:00 09/19/23 09:00 Constitutional Constitutional: no acute distress *Routine HEENT Exam Head: Present normocephalic Eye: Present EOMI and PERRL ENT: Present mucous membranes moist *Routine Neck Exam Neck: Present supple; Absent lymphadenopathy *Routine Respiratory Exam Respiratory: Present CTA bilaterally *Routine Cardiovascular Exam Cardiovascular: Present RRR *Routine Abdominal Exam Abdominal: Present soft and normoactive bowel sounds; Absent tenderness *Routine Extremities Exam Extremities: Absent cyanosis, clubbing or edema *Routine Skin Exam Skin: Present warm; Absent rash *Routine Neurological Exam Neurological: Present alert and oriented X3 DS: Diagnosis Discharge Diagnosis (1) Hypercalcemia: Status: Acute Code(s): E83.52 - Hypercalcemia (2) Hypertension: Status: Chronic Code(s): I10 - Essential (primary) hypertension Qualifiers: Hypertension type: unspecified Qualified Code(s): I10 - Essential (primary) hypertension (3) GERD (gastroesophageal reflux disease): Status: Chronic Code(s): K21.9 - Gastro-esophageal reflux disease without esophagitis Qualifiers: Esophagitis presence: esophagitis presence not specified Qualified Code(s): K21.9 - Gastro-esophageal reflux disease without esophagitis (4) History of diverticulitis: Status: Acute Code(s): Z87.19 - Personal history of other diseases of the digestive system (5) Tobacco use: Status: Acute Code(s): Z72.0 - Tobacco use Meds Home Medications and Allergies Home Medications Medication Instructions Recorded Confirmed Type lisinopril 5 mg tablet 5 mg PO DAILY 05/03/23 10/01/23 History ondansetron 4 mg disintegrating 4 mg PO Q8HP PRN Nausea And 05/14/23 10/01/23 Rx tablet Vomiting #14 tabs amitriptyline 100 mg tablet 100 mg PO DAILY 08/08/23 10/01/23 History New Prescriptions to Start Prescriptions: Allergies Allergy/AdvReac Type Severity Reaction Status Date / Time aspirin Allergy Verified 10/01/23 10:49 codeine Allergy Verified 10/01/23 10:49 Discharge Plan Disposition Patient Disposition: Home, Self-Care Condition: Good Follow up Plan Follow up with: Brandy Ramírez [Primary Care Provider] - 10/01/23 11:00 am Tae Ortiz MD [Physician] - 10/23/23 1:40 pm (follow for PTH gland) Prescriptions/Medication Reconciliation: Continued amitriptyline 100 mg tablet 100 mg PO DAILY ondansetron 4 mg tablet,disintegrating 4 mg PO Q8HP PRN (Reason: Nausea And Vomiting) Qty: 14 0RF lisinopril 5 mg tablet 5 mg PO DAILY Problem Reconciliation Problems Reviewed?: Yes Patient Discharge Instructions ACTIVITY: Ambulate as tolerated DIET: continue same diet Providers Primary Care Provider: Brandy Ramírez Admit Provider: Michael Ward Attending Provider: Michael Ward
== END 2023-09-19 11:05 | disposition home or self-care (01) ==
LOC: ER 18:15 → 2ND 09-19 05:38
PROVIDERS: Nurse Practitioner Family; Admitting Provider Internal Medicine; Emergency Provider Emergency Medicine; PCP Family Medicine; Visit Provider Internal Medicine
DX: E83.52 Hypercalcemia (principal); F17.210 Nicotine dependence, cigarettes, uncomplicated; K21.9 Gastro-esophageal reflux disease without esophagitis; Z72.0 Tobacco use; I12.9 Hypertensive chronic kidney disease with stage 1 through stage 4 chronic kidney disease, or unspecified chronic kidney disease; N18.9 Chronic kidney disease, unspecified; E78.5 Hyperlipidemia, unspecified; E21.3 Hyperparathyroidism, unspecified; E03.9 Hypothyroidism, unspecified
CPT/HCPCS: 36415; 80053; 81001; 82310; 82330; 82397; 82607; 82746; 82803; 83605; 83735; 83970; 84100; 84443; 85007; 85014; 85018; 85025; 85048; 85049; 85651; 86140; 93005; 94762; 97162; 97165; 99285; G0378; J2405

== ENCOUNTER 2023-09-23 10:15 | Day surgery (SDC) | payer OTHER, SELFPAY ==
[2023-09-20 08:53] VITALS: BMI 30.9
[2023-09-23 10:25] VITALS: BP 125/86; PULSE 77; RESP 18; TEMP 36.6; O2SAT 97
[2023-09-23] MEDS: LACTATED RINGERS 1000ML 1,000 ML 25 ML IV (10:35)
--- NOTE | 2023-09-23 10:54 | P.PNANES_ITS ---
[facility] Disclaimer: The information contained in this section may have been updated after the patient was seen, as this information can be updated by other users. Medical History Atypical facial pain Trigeminal neuralgia Sinusitis Acute kidney injury superimposed on CKD Insomnia Depression HLD (hyperlipidemia) ARIELLA (acute kidney injury) Cellulitis C. difficile diarrhea Acute lumbosacral myofascial strain Non-healing wound History of pleural effusion Dyspnea on exertion Smoking greater than 30 pack years Thyroid Nodule Parathyroid adenoma Thyroid disorder GERD (gastroesophageal reflux disease) Primary hyperparathyroidism Severe protein-calorie malnutrition Tobacco use disorder Hypercalcemia Vasectomy planned Intra-abdominal abscess post-procedure Ileostomy in place Hypercalcemia ARIELLA (acute kidney injury) Hypertension Pituitary dysfunction Dehisced intestinal anastomosis History of depression Depressed Hyperlipemia Hypertension Renal cyst Surgical History Hx of parathyroidectomy History of partial thyroidectomy History of colonoscopy History of vasectomy Status post partial colectomy Family History Other No significant family history Social History Smoking Status: Current every day smoker tobacco type: cigarettes packs per day: 1 years smoked: 40 alcohol intake: never substance use type: former substance user and crack/cocaine current occupational status: disabled Travel in the last 8 weeks: None household members: none housing: house lives independently: Yes marital status: education level: college service: Yes residential: No current occupational exposures/hazards: No caffeine: Yes special laith needs: No agree to transfusion: No do you feel safe at home: Yes victim of physical abuse: No victim of emotional abuse: No victim of sexual abuse: No would you like helpful sources: No [facility] Anesthesia Checklist Patient Identification Patient Identification: Arm Band and Verbal (Name & ) Structural Data Admitted From: Home Planned Operative Procedure/s: Flex sigmoidoscopy Consent for Planned Operative Procedure(s) Verified: Yes NPO Status Verified Time NPO: 00:00 Chart Verification Results Verified: CBC and BMP Additional verifications Anesthesia Reactions: No Hx Blood Transfusions: No Blood Transfusion Reaction: No Airway Assessment Mallampati Score:: Class III C-Spine Mobility Assessed: Yes TMJ Mobility Assessed: Yes Dentition: Edentulous Neurological Assessment Level of Consciousness: Awake Hx Seizures: No Numbness or tingling in extremities: No Anesthesia Plan Anesthesia Risk discussed: Yes Anesthesia Plan: Verified ASA Class: III Anesthesia Type: MAC
[2023-09-23 11:27] VITALS: O2SAT 97
[2023-09-23 11:43] VITALS: BP 87/53; PULSE 71; RESP 18; TEMP 36.5; O2SAT 94
--- NOTE | 2023-09-23 11:43 | HMH.SCOPE ---
Procedure: Date: 09/23/23 Patient Date of :: 1970 Procedure Performed:: Flexible sigmoidoscopy Indications:: Patient presents for flexible sigmoidoscopy. He underwent extensive lysis of adhesions with takedown of colostomy and pelvic anastomosis on 04/18/2023. He has a prior history of complicated diverticulitis requiring resection as a Katz's procedure with diverting proximal loop ileostomy. However he had to return to the operating room and underwent creation of end colostomy as well as loop ileostomy for anastomotic leak. He has undergone parathyroidectomy however has had persistently elevated calcium. Patient was actually admitted to the hospital for a few hours for IV fluids for hypercalcemia several days ago. He has had persistent nausea and it is felt that this is likely due to his hypercalcemia as he tolerates a diet and is having good ileostomy output. He is apparently seeing a ENT for follow-up for possible repeat parathyroidectomy. He underwent Gastrografin followed by barium contrast enema. This reveals no evidence of any stricture or stenosis. He does have extensive diverticular disease throughout. Plan was made for sigmoidoscopy to assess the anastomosis endoscopically in anticipation of possible loop ileostomy takedown. Performing Provider:: Arsenio Marshall MD Referring Provider:: Brandy Ramírez MD Sedation:: MAC sedation Procedure:: Patient history was obtained and appropriate physical examination was performed. Patient's medications and allergies were reviewed. Informed consent was obtained after explaining the benefits, alternatives, and risks of the procedure including, but not limited to, bleeding, perforation, missed lesions, and adverse reaction to anesthesia medications. Patient was transported to endoscopy procedure room. Patient was connected to monitoring devices. Throughout the procedure the patient's blood pressure, pulse, and oxygen saturations were monitored continuously. Patient identification and planned procedure were verified by the staff. Patient was positioned in lateral decubitus position. Digital anorectal exam was performed. Variable stiffness Olympus colonoscope was inserted and advanced. It was advanced actually to the proximal transverse colon. At this point a significant amount of residual barium was encountered coating the santiago of the colon. Colonoscope was slowly withdrawn as irrigation was performed. There was some pandiverticulosis. Anastomosis was encountered at approximately 17 cm from anal verge with visible staple and suture. It was patent and intact with no evidence of any stricture. Colonoscope was withdrawn. . Findings:: Patent intact anastomosis at approximately 17 cm Pandiverticulosis Residual barium Recommendations:: May be able to initiate proceeding with ultimate ileostomy takedown. It may be preferred that he undergo at least ENT evaluation prior to this for possible correction of his hypercalcemia. Complications:: None immediate Estimated blood obtained (mL): 1 Colonoscopy Component Colonoscopy Component Was a colonoscopy performed during today's procedure?: No
[2023-09-23 11:53] VITALS: BP 91/57; PULSE 75; RESP 18; O2SAT 93
[2023-09-23 12:07] VITALS: BP 91/57; PULSE 70; RESP 18; O2SAT 94
== END 2023-09-23 12:09 | disposition home or self-care (01) ==
PROVIDERS: PCP Family Medicine; Visit Provider Surgery
PROC: 0DJD8ZZ Inspection of Lower Intestinal Tract, Via Natural or Artificial Opening Endoscopic (ICD-10-PCS; CPT 45330; principal; 2023-09-23 11:30)
DX: Z90.49 Acquired absence of other specified parts of digestive tract (principal); K57.92 Diverticulitis of intestine, part unspecified, without perforation or abscess without bleeding; D35.1 Benign neoplasm of parathyroid gland; R93.3 Abnormal findings on diagnostic imaging of other parts of digestive tract; K57.90 Diverticulosis of intestine, part unspecified, without perforation or abscess without bleeding; Z98.0 Intestinal bypass and anastomosis status
CPT/HCPCS: 45378

== ENCOUNTER 2023-09-26 07:26 | Outpatient (CLI) | payer OTHER, SELFPAY ==
--- NOTE | 2023-09-26 07:27 | MR_ITS ---
FINAL REPORT CLINICAL HISTORY: facial pain ,headache COMPARISON: None FINDINGS: Multiplanar MR imaging of the brain was performed without and with contrast. There is mild age-appropriate atrophy. Scattered foci of increased T2 signal are seen in the cerebral white matter that have a nonspecific appearance but likely represent mild chronic ischemic/gliotic changes. There is no evidence of intracranial hemorrhage or mass. No abnormal ventricular dilatation is identified. There is no evidence of shift of the midline structures. No abnormal extra-axial fluid collection is seen. No area of abnormal restricted diffusion is identified. The posterior fossa and brainstem have an unremarkable appearance. No abnormal contrast enhancement is seen. Normal major vessel vascular flow voids are seen. There is a retention cyst or polyp in the left maxillary sinus. There is also partial opacification of the mastoid air cells. This was seen on a prior CT of 07/24/2023. IMPRESSION: Mild atrophy and chronic ischemic/gliotic changes. No acute intracranial abnormality. Reviewed, Interpreted and Dictated by Arsenio Garcias III, MD Transcribed by Jessy Meier Authenticated and [facility]
--- NOTE | 2023-09-26 07:27 | MR_ITS ---
FINAL REPORT CLINICAL HISTORY: facial pain -rt,headache FINDINGS: Multiple projection images of the brain arterial vasculature were obtained without contrast. The raw data images were also reviewed. The distal internal carotid, distal vertebral and basilar arteries have an unremarkable appearance without evidence of significant stenosis or occlusion. The proximal anterior, middle and posterior cerebral arteries have an unremarkable appearance. There is no evidence of significant stenosis or major branch occlusion. No aneurysm or vascular malformation is identified. IMPRESSION: Unremarkable MR angiogram of the head. Reviewed, Interpreted and Dictated by Arsenio Garcias III, MD Transcribed by Minal Loving Authenticated and [facility]
[2023-09-26] MEDS: GADOTERIDOL INJ 17ML SYRINGE 20 ML IV (08:45)
[2023-09-26] MEDS: SODIUM CHLORIDE 0.9% 10ML SYR (RAD ONLY) 10 ML IV (08:45)
== END 2023-09-26 23:59 ==
LOC: RAD 07:27
PROVIDERS: PCP Family Medicine; Visit Provider Nurse Practitioner Family
DX: R93.0 Abnormal findings on diagnostic imaging of skull and head, not elsewhere classified (principal); G50.1 Atypical facial pain; G50.0 Trigeminal neuralgia; J01.01 Acute recurrent maxillary sinusitis
CPT/HCPCS: 70544; 70553; A9576

== ENCOUNTER 2023-11-05 11:27 | Outpatient (CLI) | payer OTHER, SELFPAY ==
[2023-11-05 11:49] LABS: Basophils # 0.1 K/mm3 (0-0.2); Basophils % 0.7 % (0.1-2.0); Eosinophils # 0.3 K/mm3 (0.0-0.4); Eosinophils % 2.6 % (0.1-12.0); Hematocrit 53.1 % (42.0-52.0); Lymphocytes # 3.2 K/mm3 (0.7-4.5); Lymphocytes % 29.6 % (10-50); Mean Corpuscular Hemoglobin 30.6 pg (27.0-31.2); Mean Corpuscular Volume 95.7 fl (80-94); Mean Platelet Volume 8.7 fl (7.4-10.4); Monocytes # 0.9 K/mm3 (0.1-1.0); Monocytes % 8.3 % (1.7-9.3); Neutrophils # 6.3 K/mm3 (1.8-7.8); Neutrophils % 58.9 % (37.0-80.0); Platelet Count 177 K/mm3 (142-424); Red Blood Count 5.55 M/mm3 (4.60-6.20); Red Cell Distribution Width 15.3 % (11.5-17.5); White Blood Count 10.7 K/mm3 (4.8-10.8)
[2023-11-05 13:18] LABS: Anion Gap 14.7 mEq/L (5-15); Blood Urea Nitrogen 18 mg/dl (9-20); Calcium 11.5 mg/dl (8.4-10.2); Carbon Dioxide 19 mmol/L (22.0-30.0); Chloride 109 mmol/L (98-107); Estimated Glomerular Filt Rate 57 ml/min (>60); GFR (African American) 69 ML/MIN (>60); Glucose 83 mg/dl (74-100); Potassium 4.7 mmoL/L (3.5-5.1); Sodium 138 mmol/L (136-145)
== END 2023-11-05 23:59 | disposition home or self-care (01) ==
LOC: LAB 11:27
PROVIDERS: PCP Family Medicine; Visit Provider Surgery
DX: Z93.3 Colostomy status (principal)
CPT/HCPCS: 36415; 80048; 85025

== ENCOUNTER 2023-11-07 10:02 | Inpatient (IN) | payer OTHER, SELFPAY ==
[2023-11-05 11:48] VITALS: BMI 31.1
[2023-11-07] VITALS (20 sets, daily range): BP systolic 94–140; BP diastolic 55–88; PULSE 59–85; RESP 14–28; TEMP 36.2–37.6; O2SAT 91–98; BMI 31.4
[2023-11-07] MEDS: LACTATED RINGERS 1000ML 1,000 ML 25 ML IV (06:38)
[2023-11-07] MEDS: ENOXAPARIN 30MG/0.3ML SYRINGE 30 MG SQ (06:55)
[2023-11-07] MEDS: AMPICILLIN/SULBACTAM 3 GM VIAL IV (07:30)
[2023-11-07] MEDS: 0.9 % SODIUM CHLORIDE 100 ML IV (07:30)
--- NOTE | 2023-11-07 07:53 | P.PNANES_ITS ---
[facility] Disclaimer: The information contained in this section may have been updated after the patient was seen, as this information can be updated by other users. Medical History Ileostomy in place Hyperparathyroidism Parathyroid adenoma Atypical facial pain Trigeminal neuralgia Sinusitis Acute kidney injury superimposed on CKD Insomnia Depression HLD (hyperlipidemia) ARIELLA (acute kidney injury) Cellulitis C. difficile diarrhea Acute lumbosacral myofascial strain Non-healing wound History of pleural effusion Dyspnea on exertion Smoking greater than 30 pack years Thyroid Nodule Thyroid disorder GERD (gastroesophageal reflux disease) Primary hyperparathyroidism Severe protein-calorie malnutrition Tobacco use disorder Hypercalcemia Vasectomy planned Intra-abdominal abscess post-procedure Hypercalcemia ARIELLA (acute kidney injury) Hypertension Pituitary dysfunction Dehisced intestinal anastomosis History of depression Depressed Hyperlipemia Hypertension Renal cyst Surgical History Hx of parathyroidectomy History of partial thyroidectomy History of colonoscopy History of vasectomy Status post partial colectomy Family History Other No significant family history Social History (Updated 11/07/23 @ 06:37 by Avelina Vigil RN) Smoking Status: Current every day smoker tobacco type: cigarettes packs per day: 1 years smoked: 40 alcohol intake: never substance use type: former substance user and crack/cocaine current occupational status: disabled Travel in the last 8 weeks: None household members: none housing: house lives independently: Yes marital status: education level: college service: Yes residential: No current occupational exposures/hazards: No caffeine: Yes special laith needs: No agree to transfusion: No do you feel safe at home: Yes victim of physical abuse: No victim of emotional abuse: No victim of sexual abuse: No would you like helpful sources: No [facility] Anesthesia Checklist Patient Identification Patient Identification: Verbal (Name & ) Structural Data Admitted From: Home Planned Operative Procedure/s: illiostomy takedown Consent for Planned Operative Procedure(s) Verified: Yes NPO Status Verified Time NPO: 00:00 Additional verifications Anesthesia Reactions: No Hx Blood Transfusions: No Blood Transfusion Reaction: No Airway Assessment Mallampati Score:: Class II C-Spine Mobility Assessed: Yes TMJ Mobility Assessed: Yes Dentition: Edentulous Neurological Assessment Level of Consciousness: Awake, Alert and Appropriate Anesthesia Plan Anesthesia Risk discussed: Yes Anesthesia Plan: Verified ASA Class: III Anesthesia Type: General
--- NOTE | 2023-11-07 09:26 | P.OP_ITS ---
Date of procedure: 11/07/23 Pre-op Diagnosis:: Obsolete ileostomy Post-op Diagnosis:: Same Procedure performed:: Takedown reversal of loop ileostomy Surgeon:: Arsenio Marshall MD TIN RECOVERY WORKER:: George Wells Anesthesia: GETA Estimated blood loss (mL): 30 Clinical Note:: Patient is a 53-year-old male with complex prior surgical history. In summary he basically had sigmoid colon resection for chronic complicated diverticulitis with high-grade partial obstruction and abscess on 12/14/2021. He did have a diverting proximal loop ileostomy at that time with a low pelvic anastomosis. He had to return to the operating room on 12/16/2021 due to anastomotic leak and severe fecal peritonitis. At that time he had creation of an end colostomy. He had a prolonged hospital stay following that for about 4 weeks and ultimately went to [facility]. Patient ultimately underwent reversal of the end colostomy leaving the loop ileostomy. Patient underwent evaluation with contrast imaging with Gastroview followed by barium enema and then had a colonoscopy performed to assess the anastomosis and rule out stricture. He has had some issues with hypercalcemia and has been admitted occasionally for IV fluid hydration. He has seen ENT who is apparently juni castillo considering follow-up parathyroid surgery after Sestamibi scan. Patient is strongly wished to pursue reversal and takedown of his ileostomy. . Operative findings:: Normal ileum. There was a small granuloma in the mesentery of the ileum from previous severe fecal peritonitis. . Operative note:: Consent was obtained and patient was taken to the operating room. He was placed in a supine position. General anesthesia was induced. Segura catheter was placed. Limited prepping of the abdomen was performed. Loop ileostomy was then sewn shut with a running 0 Surgilon locking suture. Abdomen was then fully prepped and draped in the standard surgical fashion. Elliptical incision was made around the loop ileostomy. Dissection was carried down through to subcutaneous tissues down to the 2 limbs of the ileum. Prolonged dissection was carried out around this down to the fascia using careful blunt dissection and Metzenbaum dissection. Ultimately fascia was able to be elevated and dissection was carried out below the fascia freeing up the 2 limbs of ileum. Each limb of the small bowel (ileum) was then stapled proximal to the bowel with adherent skin with a PAVITHRA stapling device removing the ileostomy with adherent skin. The 2 limbs of small bowel were then stapled to 1 another in a [id number] anastomosis using a PAVITHRA 75 type stapling device. Anastomosis appeared patent and intact with good hemostasis. The common enterotomy defect was closed with a [place] 60B type stapling device. Staple line was oversewn with multiple interrupted 3-0 Surgilon seromuscular sutures. 3-0 Surgilon seromuscular suture was placed near the staple line angle. Small bowel was returned to the peritoneal cavity. There was good hemostasis. Posterior fascia was closed with a running 0 PDS suture wound was irrigated. Rectus muscles were reapproximated with a couple of 2-0 Vicryl sutures. Anterior fascia was closed with running #1 Prolene. Subcutaneous tissues were irrigated. Skin was closed with 2-0 nylon vertical mattress sutures. Clean dry sterile dressing was applied. . Condition: stable Disposition: PACU Complications:: None immediately apparent
--- NOTE | 2023-11-07 09:33 | EXP.ANES.I ---
[facility] Anesthesia Record Part I Anesthesia Record I Intake, IV Amount: 2,800 Hydration: Adequate Estimated blood loss (mL): 50 Urine output (mL): 400 Blood Pressure: 140/80 SaO2: 93 Pulse Rate: 77 Airway Patency: Patent Respiratory Rate: 14 Temperature: 99.5 F Patient is:: Drowsy and Stable Stable to PACU at:: 09:30
[2023-11-07] MEDS: MORPHINE 2MG/ML SYRINGE 2 MG IV ×3 (09:43→12:00)
[2023-11-07 09:51] LABS: Microscopic,Cath URINE MICROSCOPIC (MICROSCOPIC)
[2023-11-07 09:54] LABS: Appearance,Urine/Cath CLEAR (Clear); Bilirubin,Cath Negative (Negative); Blood, Urine/Cath TRACE-I (Negative); Color,Urine/Cath YELLOW (Yellow); Glucose,Urine/Cath (UA) Negative (Negative); Ketones,Urine/Cath Negative (Negative); Leukocyte Esterase,Cath Negative (Negative); Nitrate,Cath Negative (Negative); Protein,Urine/Cath Negative (Negative); Specific Gravity, Urine/Cath 1.025 (1.005-1.030); Urobilinogen,Cath 0.2 EU/dl (0.2)
--- NOTE | 2023-11-07 10:00 | PC.NURSE ---
Pt arrived to the floor at this time.
--- NOTE | 2023-11-07 10:03 | EXP.MED.CON ---
History of Present Illness *Admission Date: 11/07/23 *Reason for visit:: loop Ileostomy reversal, abdominal pain *History of present illness: Mr. Willis is a 53-year-old male with history of thigh rate is hyper Isi to the 80s to, high retention, complex past abdominal surgical history. Was brought in electively by the surgery today for reversal of his loop ileostomy. Medicine was consulted to assist with management during admission after surgical intervention. History per surgery as follows: Patient is a 53-year-old male with complex prior surgical history. In summary he basically had sigmoid colon resection for chronic complicated diverticulitis with high-grade partial obstruction and abscess on 12/14/2021. He did have a diverting proximal loop ileostomy at that time with a low pelvic anastomosis. He had to return to the operating room on 12/16/2021 due to anastomotic leak and severe fecal peritonitis. At that time he had creation of an end colostomy. He had a prolonged hospital stay following that for about 4 weeks and ultimately went to [facility]. Patient ultimately underwent reversal of the end colostomy leaving the loop ileostomy. Patient underwent evaluation with contrast imaging with Gastroview followed by barium enema and then had a colonoscopy performed to assess the anastomosis and rule out stricture. He has had some issues with hypercalcemia and has been admitted occasionally for IV fluid hydration. He has seen ENT who is apparently potentially considering follow-up parathyroid surgery after Sestamibi scan. Patient is strongly wished to pursue reversal and takedown of his ileostomy. Patient denies any chest pain, shortness of breath, nausea or vomiting. Does complain of abdominal pain, worse when he coughs. Mainly at his surgical site. States he is hungry however understands he cannot eat due to postop status. Sleeping well until interrupted for exam. Complains of pain but then dozes off comfortably. Blood pressure soft, heart rate normal. [facility] Disclaimer: The information contained in this section may have been updated after the patient was seen, as this information can be updated by other users. Medical History Ileostomy in place Hyperparathyroidism Parathyroid adenoma Atypical facial pain Trigeminal neuralgia Sinusitis Acute kidney injury superimposed on CKD Insomnia Depression HLD (hyperlipidemia) ARIELLA (acute kidney injury) Cellulitis C. difficile diarrhea Acute lumbosacral myofascial strain Non-healing wound History of pleural effusion Dyspnea on exertion Smoking greater than 30 pack years Thyroid Nodule Thyroid disorder GERD (gastroesophageal reflux disease) Primary hyperparathyroidism Severe protein-calorie malnutrition Tobacco use disorder Hypercalcemia Vasectomy planned Intra-abdominal abscess post-procedure Hypercalcemia ARIELLA (acute kidney injury) Hypertension Pituitary dysfunction Dehisced intestinal anastomosis History of depression Depressed Hyperlipemia Hypertension Renal cyst Surgical History Hx of parathyroidectomy History of partial thyroidectomy History of colonoscopy History of vasectomy Status post partial colectomy Family History Other No significant family history Social History Smoking Status: Current every day smoker tobacco type: cigarettes packs per day: 1 years smoked: 40 alcohol intake: never substance use type: former substance user and crack/cocaine current occupational status: disabled Travel in the last 8 weeks: None household members: none housing: house lives independently: Yes marital status: education level: college service: Yes penitentiary: No current occupational exposures/hazards: No caffeine: Yes special laith needs: No agree to transfusion: No do you feel safe at home: Yes victim of physical abuse: No victim of emotional abuse: No victim of sexual abuse: No would you like helpful sources: No Review of Systems Review of Systems Review of systems (narrative): 14 point review of systems performed, pertinent positives and negatives as per HPI Exam Data for Last 24 hours Vital signs and Labs for Last 24 Hours: Temp Pulse Resp BP Pulse Ox O2 Del Method 99.5 F 77 14 140/80 97 Room Air 11/07/23 09:33 11/07/23 09:33 11/07/23 09:33 11/07/23 09:33 11/07/23 06:20 11/07/23 06:20 I & O for Last 24 hours: Intake & Output 11/04/23 11/05/23 11/06/23 11/07/23 23:59 23:59 23:59 23:59 Intake Total 2800 / 2800 Balance 2800 / 2800 Weight 101.151 kg Constitutional Constitutional: mild distress, obese, chronically ill appearing and cooperative *Routine HEENT Exam Head: Present normocephalic and atraumatic Eye: Present EOMI and PERRL ENT: Present mucous membranes moist Comments: NG in nose *Routine Neck Exam Neck: Present supple *Routine Respiratory Exam Respiratory: Present rhonchi and normal respiratory effort; Absent wheezes or crackles *Routine Cardiovascular Exam Cardiovascular: Present RRR *Routine Abdominal Exam Abdominal: Present soft, tenderness (Worse in right lower quadrant) and surgical scars; Absent distended Comments: Well-healed midline abdominal scar, surgical bandage over right lower abdomen. Bandage is clean dry and intact. *Routine Rectal Exam Patient deferred: visual exam *Routine Exam Patient deferred: penile exam *Routine Neurological Exam Neurological: Present alert, oriented X3 and moving all extremities; Absent altered mental status Meds Home Medications and Allergies Home Medications Medication Instructions Recorded Confirmed Type lisinopril 5 mg tablet 5 mg PO DAILY 05/03/23 11/07/23 History ondansetron 4 mg disintegrating 4 mg PO Q8HP PRN Nausea And 05/14/23 11/07/23 Rx tablet Vomiting #14 tabs amitriptyline 100 mg tablet 100 mg PO HS 08/08/23 11/07/23 History rimegepant 75 mg disintegrating 75 mg PO DAILYP PRN Headache 11/07/23 11/07/23 History tablet (Nurtec ODT) New Prescriptions to Start Prescriptions: Allergies Allergy/AdvReac Type Severity Reaction Status Date / Time aspirin Allergy Verified 11/07/23 06:18 codeine Allergy Verified 11/07/23 06:18 Results Labs Labs: All other labs normal. Assessment and Plan *Assessment and plan (1) Hyperparathyroidism: Status: Acute Category: Medical Code(s): E21.3 - Hyperparathyroidism, unspecified (2) Status post reversal of ileostomy: Status: Acute Category: Surgical Code(s): Z98.890 - Other specified postprocedural states (3) Hypercalcemia: Status: Chronic Category: Medical Code(s): E83.52 - Hypercalcemia (4) Tobacco use: Status: Acute Category: Social Hx Code(s): Z72.0 - Tobacco use (5) Hypertension: Status: Chronic Qualifiers: Hypertension type: unspecified Qualified Code(s): I10 - Essential (primary) hypertension Category: Medical Code(s): I10 - Essential (primary) hypertension (6) Depressed: Status: Chronic Category: Medical Code(s): F32.A - Depression, unspecified (7) GERD (gastroesophageal reflux disease): Status: Chronic Qualifiers: Esophagitis presence: esophagitis presence not specified Qualified Code(s): K21.9 - Gastro-esophageal reflux disease without esophagitis Category: Medical Code(s): K21.9 - Gastro-esophageal reflux disease without esophagitis (8) CKD stage 3a, GFR 45-59 ml/min: Status: Acute Category: Medical Code(s): N18.31 - Chronic kidney disease, stage 3a Plan 53-year-old male with loop ileostomy, history of parathyroidism, hypercalcemia, tobacco use disorder and hypertension. Presented for elective reversal of loop ileostomy. Discussed case with surgery, admitting after procedure and requests medicine's assistance in medical management. Patient tolerated the procedure well. Having some postoperative pain. Labs from 2 days ago reviewed showing hypercalcemia. Medically stable at this time. Problems addressed as follows: Status post reversal of loop ileostomy -Patient is n.p.o., surgery is managing. Awaiting function of bowels before advancing diet -Continue morphine IV, increase to 4 mg every 2 hours as needed. Will consider further adjustment for breakthrough pain, has had difficult time controlling pain in the past previous surgeries - Continue LR at 125 cc/h while patient n.p.o. -Continue Zofran 4 mg IV every 6 hours as needed for nausea -Continue pantoprazole 40 mg nightly for GERD and to decrease GI bleeding risk -Continue Tylenol 650 mg orally every 6 hours as needed No diagnosis of COPD however has extensive history of smoking with over 45-deye-rwni history. DuoNebs as needed every 6 hours. -Currently on oxygen postop, weaned to 1 L, wean off as tolerated. Goal sats greater 90%. -Nicotine patch daily as needed Depression: Continue home amitriptyline 100 mg nightly Hypertension: Holding lisinopril in the setting of normal blood pressure postop Hypercalcemia Hyperparathyroidism -Patient's calcium was 11.5 on preop labs 2 days ago. Repeat labs ordered for the morning. Will consider treatment with IV fluids and diuretics if not improving. Continue conservative management and observation. -CBC, CMP, magnesium, phosphorus ordered for the morning -PTH 328 1 month ago. Follows with ENT, will follow with them as an outpatient after discharge. Current discussion about further parathyroidectomy. Creatinine 1.3 on preop labs. Consistent with CKD 3. Monitor daily. Full code N.p.o. Thank you for the opportunity to consult on this patient and assist with care. Will continue to follow along while he is admitted.
[2023-11-07] MEDS: ONDANSETRON 4MG/2ML VIAL 4 MG IV (10:25)
[2023-11-07] MEDS: LACTATED RINGERS 1000ML 1,000 ML 125 ML IV ×2 (10:28→18:22)
[2023-11-07 12:01] LABS: RBC,Urine/Cath Occasional # /hpf (0-3); WBC,Urine/Cath Occasional #/hpf (0-3)
[2023-11-07 12:02] LABS: Bacteria,Urine/Cath TRACE /lpf; Hyaline Casts,Urine/Cath O #/lpf (0)
[2023-11-07] MEDS: MORPHINE 4MG/ML SYRINGE 4 MG IV ×2 (14:23→16:07)
[2023-11-07] MEDS: HYDROMORPHONE 2MG/ML SYRINGE 1 MG IV ×2 (17:36→21:14)
--- NOTE | 2023-11-07 18:34 | PC.NURSE ---
Patient alert & oriented x4. Post-op day 1. Segura cath in place. Weaned O2. Tolerating room air well. NG tube LWS. Pain not controlled with morphine. Treated with Dilaudid per MAR. Denies N/V. SCDS in place.
[2023-11-07] MEDS: PANTOPRAZOLE 40MG VIAL 40 MG IV (20:36)
[2023-11-08] VITALS (7 sets, daily range): BP systolic 90–137; BP diastolic 53–88; PULSE 60–71; RESP 14–18; TEMP 36.5–36.6; O2SAT 92–94; BMI 32.1
[2023-11-08] MEDS: HYDROMORPHONE 2MG/ML SYRINGE 1 MG IV ×6 (01:52→21:08)
[2023-11-08] MEDS: LACTATED RINGERS 1000ML 1,000 ML 125 ML IV ×3 (02:27→18:56)
[2023-11-08] MEDS: ONDANSETRON 4MG/2ML VIAL 4 MG IV ×2 (05:27→21:14)
--- NOTE | 2023-11-08 05:54 | PC.NURSE ---
pt reported nausea this morning, noted drainage from ng tube was drk red and had been clear from ice intake, pt reported right sided abd pain that was sharp in nature but had been a burning incisional pain through the night, drsg over incision c/d/i, noted bowel sounds this morning, hypoactive at assessment earlier in the shift. pt coughing. noted to have rhochi but is able to clear with coughing, pt given incentive spirometer and encouraged to use. pt has been 92-94% on room air, a.febrile. adequate uop, dr napier made aware of change in color of drainage and change in description of pain, no new orders received
[2023-11-08 06:07] LABS: Basophils % 0.2 % (0.1-2.0); Eosinophils % 0.2 % (0.1-12.0); Hemoglobin 14.6 g/dL (14.1-18.0); Lymphocytes % 12.5 % (10-50); Mean Corpuscular HGB Conc 32.5 g/dL (31.8-35.4); Mean Corpuscular Hemoglobin 30.9 pg (27.0-31.2); Mean Corpuscular Volume 94.9 fl (80-94); Mean Platelet Volume 9.4 fl (7.4-10.4); Monocytes # 1.1 K/mm3 (0.1-1.0); Monocytes % 6.7 % (1.7-9.3); Neutrophils # 12.6 K/mm3 (1.8-7.8); Neutrophils % 80.4 % (37.0-80.0); Platelet Count 176 K/mm3 (142-424); Red Blood Count 4.74 M/mm3 (4.60-6.20); Red Cell Distribution Width 15.2 % (11.5-17.5); White Blood Count 15.6 K/mm3 (4.8-10.8)
[2023-11-08 06:08] LABS: MANUAL DIFFERENTIAL MANUAL DIFFERENTIAL (MANUAL DIFF)
[2023-11-08 06:13] LABS: Alanine Aminotransferase 33 U/L (12-78); Albumin Level 3.5 g/dl (3.5-5.0); Albumin/Globulin Ratio 1.2 (1.1-1.8); Alkaline Phosphatase 98 U/L (38-126); Aspartate Amino Transferase 34 U/L (17-59); Bilirubin,Total 0.7 mg/dl (0.2-1.3); Blood Urea Nitrogen 32 mg/dl (9-20); Calcium 10.3 mg/dl (8.4-10.2); Carbon Dioxide 22 mmol/L (22.0-30.0); Chloride 107 mmol/L (98-107); Creatinine Clearance Estimated 82 mL/min (50-200); Estimated Glomerular Filt Rate 49 ml/min (>60); GFR (African American) 59 ML/MIN (>60); Glucose 111 mg/dl (74-100); Magnesium 1.7 mg/dl (1.6-2.3); Phosphorous 3.3 mg/dl (2.5-4.5); Sodium 136 mmol/L (136-145); Total Protein,Serum 6.5 g/dl (6.3-8.2)
--- NOTE | 2023-11-08 06:29 | EXP.SURG.PN ---
Subjective Narrative: Patient had some surgical site burning pain. He had developed some cough and developed some sharper pain. Nursing was concerned about possible blood-tinged nasogastric aspirate. Patient did have some minimal nausea. Exam Data for Last 24 hours Vital signs and Labs for Last 24 Hours: Temp Pulse Resp BP Pulse Ox O2 Del Method O2 Flow Rate 97.8 F 64 18 102/69 L 94 L Room Air 1 11/08/23 04:00 11/08/23 04:00 11/08/23 04:00 11/08/23 04:00 11/08/23 04:00 11/08/23 05:00 11/07/23 16:50 Laboratory Results - last 24 hr 11/07/23 : Urine Color Yellow, Urine Appearance Clear, Urine pH 6.0, Ur Specific [place] 1.025, Urine Protein Negative, Urine Glucose (UA) Negative, Urine Ketones Negative, Urine Blood Trace-i, Urine Nitrate Negative, Urine Bilirubin Negative, Urine Urobilinogen 0.2, Ur Leukocyte Esterase Negative, Urine RBC Occasional, Urine WBC Occasional, Ur Squamous Epith Cells None, Urine Bacteria Trace, Hyaline Casts O 11/08/23 05:53: WBC 15.6 H D, RBC 4.74, Hgb 14.6, Hct 45.0, MCV 94.9 H, MCH 30.9, MCHC 32.5, RDW 15.2, Plt Count 176, MPV 9.4, Neut % (Auto) 80.4 H, Lymph % (Auto) 12.5, [place] % (Auto) 6.7, Eos % (Auto) 0.2, Baso % (Auto) 0.2, Neut # (Auto) 12.6 H, Lymph # (Auto) 2.0, [place] # (Auto) 1.1 H, Eos # (Auto) 0.0, Baso # (Auto) 0.0, Sodium 136, Potassium 5.0, Chloride 107, Carbon Dioxide 22, Anion Gap 12.0, BUN 32 H D, Creatinine 1.50 H, Estimated Creat Clear 82, Estimated GFR 49 L, Est GFR ( Amer) 59, Glucose 111 H, Calcium 10.3 H, Phosphorus 3.3, Magnesium 1.7, Total Bilirubin 0.7, AST 34, ALT 33, Alkaline Phosphatase 98, Total Protein 6.5, Albumin 3.5, Globulin 3.0, Albumin/Globulin Ratio 1.2 I & O for Last 24 hours: Intake & Output 11/05/23 11/06/23 11/07/23 11/08/23 11:59 11:59 11:59 11:59 Intake Total 2800 / 2800 1636 / 1636 Output Total 400 / 400 1125 / 1125 Balance 2400 / 2400 511 / 511 Weight 223 lb 224 lb 4.8 oz 229 lb 1.6 oz *Routine Abdominal Exam Abdominal: Present soft and distended Comments: Dressing dry Progress Note: A&P Assessment and plan (1) Hyperparathyroidism: Status: Acute Assessment and plan: JOHN Segura (2) Status post reversal of ileostomy: Status: Acute (3) Hypercalcemia: Status: Chronic (4) Tobacco use: Status: Acute (5) Hypertension: Status: Chronic (6) Depressed: Status: Chronic (7) GERD (gastroesophageal reflux disease): Status: Chronic (8) CKD stage 3a, GFR 45-59 ml/min: Status: Acute
--- NOTE | 2023-11-08 06:31 | P.HP_ITS ---
HPI HPI HPI: Patient is a 53-year-old male with complex prior surgical history. In summary he had developed findings consistent with high-grade partial distal obstruction in late 2020 for which she had undergone thorough evaluation and investigation by general surgery at [facility] without obvious etiology. He had developed recurrent symptoms and was evaluated at [facility] in the spring 2021 and ultimately underwent sigmoid colon resection for what was proven to be chronic complicated diverticulitis with high-grade partial obstruction and abscess on 12/14/2021. He did have a diverting proximal loop ileostomy at that time with a low pelvic anastomosis. He had to return to the operating room on 12/16/2021 due to anastomotic leak and severe fecal peritonitis despite having proximal diversion. At that time he had creation of an end colostomy to accompany his loop ileostomy. He had a prolonged hospital stay following that for about 4 weeks and ultimately went to [facility]. Patient has been extremely anxious to have his ostomy is reversed. After thorough investigative imaging studies and colonoscopy patient ultimately underwent reversal of the end colostomy leaving the proximal loop ileostomy. Patient then underwent additional evaluation with contrast imaging with Gastroview followed by barium enema and then had a colonoscopy performed to assess the anastomosis and rule out stricture. He has been extremely anxious to have the loop ileostomy reversed. He has had some issues with hypercalcemia and has been admitted occasionally for IV fluid hydration. He has seen ENT who is apparently potentially considering follow-up parathyroid surgery after Sestamibi scan. Patient strongly wished to pursue reversal and takedown of his ileostomy. Patient was made aware of the potential complications including bleeding, infection, anesthetic risk, obstruction, anastomotic leak, and recurrent diverticulitis. He strongly wished to pursue ileostomy takedown. [facility] Disclaimer: The information contained in this section may have been updated after the patient was seen, as this information can be updated by other users. Medical History Ileostomy in place Hyperparathyroidism Parathyroid adenoma Atypical facial pain Trigeminal neuralgia Sinusitis Acute kidney injury superimposed on CKD Insomnia Depression HLD (hyperlipidemia) ARIELLA (acute kidney injury) Cellulitis C. difficile diarrhea Acute lumbosacral myofascial strain Non-healing wound History of pleural effusion Dyspnea on exertion Smoking greater than 30 pack years Thyroid Nodule Thyroid disorder GERD (gastroesophageal reflux disease) Primary hyperparathyroidism Severe protein-calorie malnutrition Tobacco use disorder Hypercalcemia Vasectomy planned Intra-abdominal abscess post-procedure Hypercalcemia ARIELLA (acute kidney injury) Hypertension Pituitary dysfunction Dehisced intestinal anastomosis History of depression Depressed Hyperlipemia Hypertension Renal cyst Surgical History Hx of parathyroidectomy History of partial thyroidectomy History of colonoscopy History of vasectomy Status post partial colectomy Family History Other No significant family history Social History Smoking Status: Current every day smoker tobacco type: cigarettes packs per day: 1 years smoked: 40 alcohol intake: never substance use type: former substance user and crack/cocaine current occupational status: disabled Travel in the last 8 weeks: None household members: none housing: house lives independently: Yes marital status: education level: college service: Yes snf: No current occupational exposures/hazards: No caffeine: Yes special laith needs: No agree to transfusion: No do you feel safe at home: Yes victim of physical abuse: No victim of emotional abuse: No victim of sexual abuse: No would you like helpful sources: No Meds Home Medications and Allergies Home Medications Medication Instructions Recorded Confirmed Type lisinopril 5 mg tablet 5 mg PO DAILY 05/03/23 11/07/23 History ondansetron 4 mg disintegrating 4 mg PO Q8HP PRN Nausea And 05/14/23 11/07/23 Rx tablet Vomiting #14 tabs amitriptyline 100 mg tablet 100 mg PO HS 08/08/23 11/07/23 History rimegepant 75 mg disintegrating 75 mg PO DAILYP PRN Headache 11/07/23 11/07/23 History tablet (Nurtec ODT) New Prescriptions to Start Prescriptions: Allergies Allergy/AdvReac Type Severity Reaction Status Date / Time aspirin Allergy Verified 11/07/23 06:18 codeine Allergy Verified 11/07/23 06:18 Exam Data for Last 24 hours Vital signs and Labs for Last 24 Hours: Temp Pulse Resp BP Pulse Ox O2 Del Method O2 Flow Rate 97.8 F 64 18 102/69 L 94 L Room Air 1 11/08/23 04:00 11/08/23 04:00 11/08/23 04:00 11/08/23 04:00 11/08/23 04:00 11/08/23 05:00 11/07/23 16:50 Laboratory Results - last 24 hr 11/07/23 : Urine Color Yellow, Urine Appearance Clear, Urine pH 6.0, Ur Specific [place] 1.025, Urine Protein Negative, Urine Glucose (UA) Negative, Urine Ketones Negative, Urine Blood Trace-i, Urine Nitrate Negative, Urine Bilirubin Negative, Urine Urobilinogen 0.2, Ur Leukocyte Esterase Negative, Urine RBC Occasional, Urine WBC Occasional, Ur Squamous Epith Cells None, Urine Bacteria Trace, Hyaline Casts O 11/08/23 05:53: WBC 15.6 H D, RBC 4.74, Hgb 14.6, Hct 45.0, MCV 94.9 H, MCH 30.9, MCHC 32.5, RDW 15.2, Plt Count 176, MPV 9.4, Neut % (Auto) 80.4 H, Lymph % (Auto) 12.5, [place] % (Auto) 6.7, Eos % (Auto) 0.2, Baso % (Auto) 0.2, Neut # (Auto) 12.6 H, Lymph # (Auto) 2.0, [place] # (Auto) 1.1 H, Eos # (Auto) 0.0, Baso # (Auto) 0.0, Sodium 136, Potassium 5.0, Chloride 107, Carbon Dioxide 22, Anion Gap 12.0, BUN 32 H D, Creatinine 1.50 H, Estimated Creat Clear 82, Estimated GFR 49 L, Est GFR ( Amer) 59, Glucose 111 H, Calcium 10.3 H, Phosphorus 3.3, Magnesium 1.7, Total Bilirubin 0.7, AST 34, ALT 33, Alkaline Phosphatase 98, Total Protein 6.5, Albumin 3.5, Globulin 3.0, Albumin/Globulin Ratio 1.2 I & O for Last 24 hours: Intake & Output 11/05/23 11/06/23 11/07/23 11/08/23 11:59 11:59 11:59 11:59 Intake Total 2800 / 2800 1636 / 1636 Output Total 400 / 400 1125 / 1125 Balance 2400 / 2400 511 / 511 Weight 223 lb 224 lb 4.8 oz 229 lb 1.6 oz Constitutional Constitutional: no acute distress *Routine HEENT Exam Head: Present normocephalic Eye: Present EOMI and PERRL ENT: Present mucous membranes moist *Routine Neck Exam Neck: Present supple; Absent lymphadenopathy *Routine Respiratory Exam Respiratory: Present CTA bilaterally *Routine Cardiovascular Exam Cardiovascular: Present RRR *Routine Abdominal Exam Abdominal: Present soft and surgical scars; Absent tenderness Comments: Ileostomy right lower quadrant. Extensive surgical scars. *Routine Rectal Exam Rectal:: deferred *Routine Genitalia Exam Genitalia:: deferred *Routine Extremities Exam Extremities: Absent cyanosis, clubbing or edema *Routine Skin Exam Skin: Present warm; Absent rash *Routine Neurological Exam Neurological: Present alert and oriented X3 Results Results Lab Results Last 24 Hours:: Laboratory Results - last 24 hr 11/07/23 : Urine Color Yellow, Urine Appearance Clear, Urine pH 6.0, Ur Specific [place] 1.025, Urine Protein Negative, Urine Glucose (UA) Negative, Urine Ketones Negative, Urine Blood Trace-i, Urine Nitrate Negative, Urine Bilirubin Negative, Urine Urobilinogen 0.2, Ur Leukocyte Esterase Negative, Urine RBC Occasional, Urine WBC Occasional, Ur Squamous Epith Cells None, Urine Bacteria Trace, Hyaline Casts O 11/08/23 05:53: WBC 15.6 H D, RBC 4.74, Hgb 14.6, Hct 45.0, MCV 94.9 H, MCH 30.9, MCHC 32.5, RDW 15.2, Plt Count 176, MPV 9.4, Neut % (Auto) 80.4 H, Lymph % (Auto) 12.5, [place] % (Auto) 6.7, Eos % (Auto) 0.2, Baso % (Auto) 0.2, Neut # (Auto) 12.6 H, Lymph # (Auto) 2.0, [place] # (Auto) 1.1 H, Eos # (Auto) 0.0, Baso # (Auto) 0.0, Sodium 136, Potassium 5.0, Chloride 107, Carbon Dioxide 22, Anion Gap 12.0, BUN 32 H D, Creatinine 1.50 H, Estimated Creat Clear 82, Estimated GFR 49 L, Est GFR ( Amer) 59, Glucose 111 H, Calcium 10.3 H, Phosphorus 3.3, Magnesium 1.7, Total Bilirubin 0.7, AST 34, ALT 33, Alkaline Phosphatase 98, Total Protein 6.5, Albumin 3.5, Globulin 3.0, Albumin/Globulin Ratio 1.2 Assessment and Plan *Assessment and plan (1) Ileostomy in place: Problem Comment: Would benefit from convex appliance, appropriate size. Status: Acute Category: Medical Code(s): Z93.2 - Ileostomy status Plan Ileostomy takedown with planned admission
--- NOTE | 2023-11-08 07:14 | EXP.MED.FU ---
Subjective *Date: 11/08/23 *Time: 18:39 Interval history: Patient feeling little better today. Responded well to transition to hydromorphone. No flatus as of yet. Pain still prominent with cough but improving when not coughing. No nausea or vomiting. Currently on room air. Afebrile. Exam Data for Last 24 hours Vital signs and Labs for Last 24 Hours: Temp Pulse Resp BP Pulse Ox O2 Del Method O2 Flow Rate 97.8 F 64 18 102/69 L 94 L Room Air 1 11/08/23 04:00 11/08/23 04:00 11/08/23 04:00 11/08/23 04:00 11/08/23 04:00 11/08/23 07:00 11/07/23 16:50 Laboratory Results - last 24 hr 11/07/23 : Urine Color Yellow, Urine Appearance Clear, Urine pH 6.0, Ur Specific [place] 1.025, Urine Protein Negative, Urine Glucose (UA) Negative, Urine Ketones Negative, Urine Blood Trace-i, Urine Nitrate Negative, Urine Bilirubin Negative, Urine Urobilinogen 0.2, Ur Leukocyte Esterase Negative, Urine RBC Occasional, Urine WBC Occasional, Ur Squamous Epith Cells None, Urine Bacteria Trace, Hyaline Casts O 11/08/23 05:53: WBC 15.6 H D, RBC 4.74, Hgb 14.6, Hct 45.0, MCV 94.9 H, MCH 30.9, MCHC 32.5, RDW 15.2, Plt Count 176, MPV 9.4, Neut % (Auto) 80.4 H, Lymph % (Auto) 12.5, [place] % (Auto) 6.7, Eos % (Auto) 0.2, Baso % (Auto) 0.2, Neut # (Auto) 12.6 H, Lymph # (Auto) 2.0, [place] # (Auto) 1.1 H, Eos # (Auto) 0.0, Baso # (Auto) 0.0, Sodium 136, Potassium 5.0, Chloride 107, Carbon Dioxide 22, Anion Gap 12.0, BUN 32 H D, Creatinine 1.50 H, Estimated Creat Clear 82, Estimated GFR 49 L, Est GFR ( Amer) 59, Glucose 111 H, Calcium 10.3 H, Phosphorus 3.3, Magnesium 1.7, Total Bilirubin 0.7, AST 34, ALT 33, Alkaline Phosphatase 98, Total Protein 6.5, Albumin 3.5, Globulin 3.0, Albumin/Globulin Ratio 1.2 I & O for Last 24 hours: Intake & Output 11/05/23 11/06/23 11/07/23 11/08/23 23:59 23:59 23:59 23:59 Intake Total 2800 / 2800 1636 / 1636 Output Total 775 / 775 750 / 750 Balance 2024 886 / 886 Weight 101.151 kg 101.741 kg 103.918 kg Constitutional Constitutional: mild distress, obese, chronically ill appearing and cooperative *Routine HEENT Exam Head: Present normocephalic and atraumatic Eye: Present EOMI and PERRL ENT: Present mucous membranes moist Comments: NG in nose *Routine Neck Exam Neck: Present supple *Routine Respiratory Exam Respiratory: Present rhonchi and normal respiratory effort; Absent wheezes or crackles *Routine Cardiovascular Exam Cardiovascular: Present RRR *Routine Abdominal Exam Abdominal: Present soft, tenderness (Worse in right lower quadrant) and surgical scars; Absent distended Comments: Well-healed midline abdominal scar, surgical bandage over right lower abdomen. Bandage is clean dry and intact. *Routine Rectal Exam Patient deferred: visual exam *Routine Exam Patient deferred: penile exam *Routine Neurological Exam Neurological: Present alert, oriented X3 and moving all extremities; Absent altered mental status Assessment and Plan *Assessment and plan (1) Hyperparathyroidism: Status: Acute Category: Medical Code(s): E21.3 - Hyperparathyroidism, unspecified (2) Status post reversal of ileostomy: Status: Acute Category: Surgical Code(s): Z98.890 - Other specified postprocedural states (3) Hypercalcemia: Status: Chronic Category: Medical Code(s): E83.52 - Hypercalcemia (4) Tobacco use: Status: Acute Category: Social Hx Code(s): Z72.0 - Tobacco use (5) Hypertension: Status: Chronic Qualifiers: Hypertension type: unspecified Qualified Code(s): I10 - Essential (primary) hypertension Category: Medical Code(s): I10 - Essential (primary) hypertension (6) Depressed: Status: Chronic Category: Medical Code(s): F32.A - Depression, unspecified (7) GERD (gastroesophageal reflux disease): Status: Chronic Qualifiers: Esophagitis presence: esophagitis presence not specified Qualified Code(s): K21.9 - Gastro-esophageal reflux disease without esophagitis Category: Medical Code(s): K21.9 - Gastro-esophageal reflux disease without esophagitis (8) CKD stage 3a, GFR 45-59 ml/min: Status: Acute Category: Medical Code(s): N18.31 - Chronic kidney disease, stage 3a Plan 53-year-old male with loop ileostomy, history of parathyroidism, hypercalcemia, tobacco use disorder and hypertension. Presented for elective reversal of loop ileostomy. Discussed case with surgery, admitting after procedure and requests medicine's assistance in medical management. Patient tolerated the procedure well. Having some postoperative pain. Tolerating pain regimen this morning. Continues to require inpatient management. Medically stable at this time. Problems addressed as follows: Status post reversal of loop ileostomy -Patient is n.p.o., surgery is managing. Awaiting function of bowels before advancing diet -Escalated to Dilaudid 1 mg IV every 3 hours as needed for breakthrough pain. Monitor for toxicity -Continue LR at 125 cc/h while patient n.p.o. -Continue Zofran 4 mg IV every 6 hours as needed for nausea -Continue pantoprazole 40 mg nightly for GERD and to decrease GI bleeding risk -Continue Tylenol 650 mg orally every 6 hours as needed No diagnosis of COPD however has extensive history of smoking with over [id number] history. DuoNebs as needed every 6 hours. -Goal sats greater 90%. Currently on room air. Supplemental oxygen as needed. -Nicotine patch daily as needed Depression: Continue home amitriptyline 100 mg nightly Hypertension: Holding lisinopril in the setting of normal blood pressure postop Hypercalcemia Hyperparathyroidism CKD 3: Stable -Patient's calcium 10.3 this morning. Phosphorus 3.3. Magnesium 1.7. Potassium 5.0. Kidney function at baseline with BUN of 32, creatinine 1.5. -CBC, CMP, magnesium, phosphorus ordered for the morning -PTH 328 1 month ago. Follows with ENT, will follow with them as an outpatient after discharge. Current discussion about further parathyroidectomy. Full code N.p.o. Thank you for the opportunity to consult on this patient and assist with care. Will continue to follow along while he is admitted.
[2023-11-08 08:13] LABS: Lymphocytes % 8 % (10-50); Monocytes % 6 % (2-9); Neutrophils % 83 % (42-76); Total Cells Counted 100
--- NOTE | 2023-11-08 08:14 | EXP.ANES.II ---
[facility] Anesthesia Record Part II Anesthesia Record Part II Discharge Time: 10:00 Destination: floor PACU nurse assessment reviewed?: Yes Patient Condition:: Good Anesthesia Complications:: None Swallowing reflex intact?: Yes Airway Patency: Patent Cyanosis?: No Blood Pressure: 90/53 SaO2: 94 Respiratory Rate: 14 Pulse Rate: 71 Temperature: 97.7 F Mental Status: Alert & Oriented Pain level:: 0 Nausea and/or vomitting:: None Intake, IV Amount: 2,800 Hydration: Adequate
[2023-11-08 08:16] LABS: Anisocytosis 1+; Macrocytosis 1+; Platelet Estimate Normal
[2023-11-08] MEDS: NICOTINE 21MG/24HR PATCH 21 MG TD (15:38)
[2023-11-08] MEDS: PANTOPRAZOLE 40MG VIAL 40 MG IV (20:01)
[2023-11-09] MEDS: HYDROMORPHONE 2MG/ML SYRINGE 1 MG IV ×4 (00:30→18:51)
[2023-11-09] MEDS: LACTATED RINGERS 1000ML 1,000 ML 125 ML IV (01:37)
[2023-11-09 04:00] VITALS: BP 129/84; PULSE 65; RESP 17; TEMP 36.9; O2SAT 90; BMI 32.1
[2023-11-09] MEDS: ONDANSETRON 4MG/2ML VIAL 4 MG IV (07:28)
[2023-11-09 07:44] VITALS: BP 136/90; PULSE 71; RESP 18; TEMP 36.3; O2SAT 91
[2023-11-09 07:55] LABS: Alanine Aminotransferase 24 U/L (12-78); Albumin Level 3.5 g/dl (3.5-5.0); Albumin/Globulin Ratio 1.2 (1.1-1.8); Alkaline Phosphatase 100 U/L (38-126); Anion Gap 10.9 mEq/L (5-15); Aspartate Amino Transferase 31 U/L (17-59); Bilirubin,Total 0.7 mg/dl (0.2-1.3); Blood Urea Nitrogen 28 mg/dl (9-20); Calcium 10.4 mg/dl (8.4-10.2); Carbon Dioxide 23 mmol/L (22.0-30.0); Chloride 105 mmol/L (98-107); Creatinine Clearance Estimated 94 mL/min (50-200); Estimated Glomerular Filt Rate 57 ml/min (>60); GFR (African American) 69 ML/MIN (>60); Globulin 2.9 g/dL (1.3-3.2); Glucose 74 mg/dl (74-100); Magnesium 1.8 mg/dl (1.6-2.3); Potassium 3.9 mmoL/L (3.5-5.1); Sodium 135 mmol/L (136-145); Total Protein,Serum 6.4 g/dl (6.3-8.2)
--- NOTE | 2023-11-09 07:59 | P.PN_ITS ---
Subjective *Date: 11/09/23 *Time: 11:24 Interval history: Patient states he is feeling little better this morning. Stable on room air. NG is clamped. Surgery saw him earlier, since being seen by surgery he is walked and actually passed a little gas. Denies any nausea but did have an ep isode of emesis when water was instilled in his NG today. Afebrile. Belly pain responding to pain control regimen Medical Exam Vital signs and Labs for Last 24 Hours: Vital Signs Temp Pulse Resp BP Pulse Ox O2 Del Method 11/09/23 07:44 97.4 F L 71 18 136/90 91 L Room Air 11/09/23 07:39 Room Air 11/09/23 06:45 Room Air 11/09/23 05:00 Room Air 11/09/23 04:00 98.5 F 65 17 129/84 90 L Room Air 11/09/23 03:00 Room Air 11/09/23 01:00 Room Air 11/08/23 23:00 Room Air 11/08/23 21:00 Room Air 11/08/23 19:31 Room Air 11/08/23 19:30 97.9 F 61 17 137/83 92 L Room Air 11/08/23 18:42 Room Air 11/08/23 17:00 Room Air 11/08/23 16:00 97.8 F 63 17 134/88 92 L 11/08/23 15:00 Room Air 11/08/23 13:00 Room Air 11/08/23 11:42 97.7 F 71 16 113/82 94 L 11/08/23 11:00 Room Air 11/08/23 09:00 Room Air 11/08/23 08:16 14 Intake and Output 11/08/23 11/08/23 11/09/23 15:59 23:59 07:59 Intake Total 2800 / 5061 625 / 625 Output Total 1101 / 2651 1000 / 1000 Balance 2800 / 2410 -1101 / 2410 -375 / -375 Intake: Intake, Total IV Amount 2800 / 5061 625 / 625 Lactated Ringers 1000ML 1,000 625 / 625 ml @ 125 mls/hr IV .Q8H [facility] Rx# :[id number] Output: Output, Urine Amount 701 / 1951 1000 / 1000 Output, Gastric Drainage Amount 400 / 700 Right Nare 400 / 700 Other: Number of Unmeasured Voids 0 0 Weight 103.9 kg 103.9 kg Patient Weight 11/09/23 23:59 Weight 103.9 kg Laboratory Results - last 24 hr 11/08/23 05:53: Total Counted 100, Neutrophils % (Manual) 83 H, Band Neutrophils % 3.0, Lymphocytes % (Manual) 8 L, Monocytes % (Manual) 6, Platelet Estimate Normal, Anisocytosis 1+, Macrocytosis 1+ 11/09/23 06:06: Sodium 135 L, Potassium 3.9 D, Chloride 105, Carbon Dioxide 23, Anion Gap 10.9, BUN 28 H, Creatinine 1.30 H, Estimated Creat Clear 94, Estimated GFR 57 L, Est GFR ( Amer) 69, Glucose 74, Calcium 10.4 H, Magnesium 1.8, Total Bilirubin 0.7, AST 31, ALT 24 D, Alkaline Phosphatase 100, Total Protein 6.4, Albumin 3.5, Globulin 2.9, Albumin/Globulin Ratio 1.2 I & O for Labs for Last 24 Hours: Intake & Output 11/06/23 11/07/23 11/08/23 11/09/23 23:59 23:59 23:59 23:59 Intake Total 2800 / 2800 4436 / 5061 625 / 625 Output Total 775 / 775 2251 / 2651 1000 / 1000 Balance 2024 / 2024 2185 / 2410 -375 / -375 Weight 101.741 kg 103.9 kg 103.9 kg Constitutional: Present no acute distress, chronically ill appearing and cooperative Head: Present atraumatic and normocephalic ENT: Present normal exam Neck: Present normal inspection Respiratory: Present CTA bilaterally; Absent rhonchi, wheezes or crackles Cardiac: Present Reg Rate and Rhythm GI: Present soft, tenderness (Minimal, right lower quadrant. Interval improvement), diminished bowel sounds and other Comments:: Incision clean dry and intact Extremities: Absent edema Skin: Present intact Neuro: Present alert, awake and moves all extremities Assessment and Plan *Assessment and plan (1) Hyperparathyroidism: Status: Acute Category: Medical Code(s): E21.3 - Hyperparathyroidism, unspecified (2) Status post reversal of ileostomy: Status: Acute Category: Surgical Code(s): Z98.890 - Other specified postprocedural states (3) Hypercalcemia: Status: Chronic Category: Medical Code(s): E83.52 - Hypercalcemia (4) Tobacco use: Status: Acute Category: Social Hx Code(s): Z72.0 - Tobacco use (5) Hypertension: Status: Chronic Qualifiers: Hypertension type: unspecified Qualified Code(s): I10 - Essential (primary) hypertension Category: Medical Code(s): I10 - Essential (primary) hypertension (6) Depressed: Status: Chronic Category: Medical Code(s): F32.A - Depression, unspecified (7) GERD (gastroesophageal reflux disease): Status: Chronic Qualifiers: Esophagitis presence: esophagitis presence not specified Qualified Code(s): K21.9 - Gastro-esophageal reflux disease without esophagitis Category: Medical Code(s): K21.9 - Gastro-esophageal reflux disease without esophagitis (8) CKD stage 3a, GFR 45-59 ml/min: Status: Acute Category: Medical Code(s): N18.31 - Chronic kidney disease, stage 3a Plan 53-year-old male with loop ileostomy, history of parathyroidism, hypercalcemia, tobacco use disorder and hypertension. Presented for elective reversal of loop ileostomy. Discussed case with surgery, admitting after procedure and requests medicine's assistance in medical management. Patient tolerated the procedure well. Having some postoperative pain. Tolerating pain regimen this morning. Showing some improvement in bowel function. Continues to require inpatient management. Medically stable at this time. Problems addressed as follows: Status post reversal of loop ileostomy -Patient is n.p.o., surgery is managing. Awaiting function of bowels before advancing diet -De-escalated Dilaudid to 1 mg IV every 4 hours. Will schedule Tylenol 1000 mg 4 times a day for and Toradol 15 mg every 6 hours. Consider weaning Dilaudid again this afternoon. Monitor for toxicity -Discontinue IV fluids -Continue Zofran 4 mg IV every 6 hours as needed for nausea -Continue pantoprazole 40 mg nightly for GERD and to decrease GI bleeding risk No diagnosis of COPD however has extensive history of smoking with over [id number] history. DuoNebs as needed every 6 hours. -Goal sats greater 90%. Currently on room air. Supplemental oxygen as needed. -Nicotine patch daily as needed Depression: Continue home amitriptyline 100 mg nightly Hypertension: Holding lisinopril in the setting of normal blood pressure postop Hypercalcemia Hyperparathyroidism CKD 3: Stable -Calcium 10.4, magnesium 1.8, potassium 3.9. Repeat CBC, CMP, magnesium ordered for the morning. Kidney function stable with BUN 28, creatinine 1.3. Showing some improvement. -PTH 328 1 month ago. Follows with ENT, will follow with them as an outpatient after discharge. Current discussion about further parathyroidectomy. Full code Sips and chips Thank you for the opportunity to consult on this patient and assist with care. Will continue to follow along while he is admitted.
--- NOTE | 2023-11-09 08:04 | XR_ITS ---
PROCEDURE INFORMATION: Exam: XR Complete Acute Abdomen Series Including Chest Exam date and time: 11/09/2023 9:54 AM Age: 53 years old Clinical indication: Nausea; Additional info: Nausea, abdominal pain, check ng TECHNIQUE: Imaging protocol: Radiologic exam. Complete acute abdomen series, including 2 or more views of the abdomen and a single view chest. COMPARISON: CT ABDOMEN PELVIS W CON 05/03/2023 5:49 PM FINDINGS: Tubes, catheters and devices: An enteric catheter is noted with its tip overlying the left upper quadrant, near the gastroesophageal junction. The proximal side-hole resides above the level of the gastroesophageal junction. Lungs: Normal. No consolidation. Pleural spaces: Normal. No pleural effusions. No pneumothorax. Heart/Mediastinum: Unremarkable. No cardiomegaly. Gastrointestinal tract: Bowel gas pattern is nonspecific with retained contrast in the colon. Intraperitoneal space: Normal. No free air. Bones/joints: Normal. No acute fracture. Soft tissues: Normal. IMPRESSION: Enteric catheter in position as described.
--- NOTE | 2023-11-09 08:05 | EXP.SURG.PN ---
Subjective Narrative: Patient states that he had maybe passed some flatus. Has had some nausea. Exam Data for Last 24 hours Vital signs and Labs for Last 24 Hours: Temp Pulse Resp BP Pulse Ox O2 Del Method O2 Flow Rate 97.4 F L 71 18 136/90 91 L Room Air 1 11/09/23 07:44 11/09/23 07:44 11/09/23 07:44 11/09/23 07:44 11/09/23 07:44 11/09/23 07:44 11/07/23 16:50 Laboratory Results - last 24 hr 11/08/23 05:53: Total Counted 100, Neutrophils % (Manual) 83 H, Band Neutrophils % 3.0, Lymphocytes % (Manual) 8 L, Monocytes % (Manual) 6, Platelet Estimate Normal, Anisocytosis 1+, Macrocytosis 1+ 11/09/23 06:06: Sodium 135 L, Potassium 3.9 D, Chloride 105, Carbon Dioxide 23, Anion Gap 10.9, BUN 28 H, Creatinine 1.30 H, Estimated Creat Clear 94, Estimated GFR 57 L, Est GFR ( Amer) 69, Glucose 74, Calcium 10.4 H, Magnesium 1.8, Total Bilirubin 0.7, AST 31, ALT 24 D, Alkaline Phosphatase 100, Total Protein 6.4, Albumin 3.5, Globulin 2.9, Albumin/Globulin Ratio 1.2 I & O for Last 24 hours: Intake & Output 11/06/23 11/07/23 11/08/23 11/09/23 11:59 11:59 11:59 11:59 Intake Total 2800 / 2800 4436 / 4436 625 / 625 Output Total 400 / 400 1525 / 1525 2101 / 2101 Balance 2400 / 2400 2911 / 2911 -1476 / -1476 Weight 224 lb 4.8 oz 229 lb 1.6 oz 229 lb 0.964 oz *Routine Abdominal Exam Abdominal: Present distended Comments: Tenderness focally around the incisional site. No diffuse tenderness Progress Note: A&P Assessment and plan (1) Hyperparathyroidism: Status: Acute (2) Status post reversal of ileostomy: Status: Acute Assessment and plan: When flushing nasogastric tube patient had significant nausea and retching. Likely has ongoing ileus. Continue NG tube for now. I will check acute abdominal series to assess the tube position. He may ambulate in the halls with the tube clamped however. Encouraged gum chewing. (3) Hypercalcemia: Status: Chronic (4) Tobacco use: Status: Acute (5) Hypertension: Status: Chronic (6) Depressed: Status: Chronic (7) GERD (gastroesophageal reflux disease): Status: Chronic (8) CKD stage 3a, GFR 45-59 ml/min: Status: Acute
[2023-11-09 08:07] LABS: Basophils % 0.3 % (0.1-2.0); Eosinophils # 0.1 K/mm3 (0.0-0.4); Eosinophils % 1.4 % (0.1-12.0); Hematocrit 45.1 % (42.0-52.0); Hemoglobin 14.3 g/dL (14.1-18.0); Lymphocytes # 2.3 K/mm3 (0.7-4.5); Mean Corpuscular HGB Conc 31.7 g/dL (31.8-35.4); Mean Corpuscular Hemoglobin 30.8 pg (27.0-31.2); Mean Corpuscular Volume 97.2 fl (80-94); Mean Platelet Volume 9.4 fl (7.4-10.4); Monocytes # 0.7 K/mm3 (0.1-1.0); Monocytes % 7.9 % (1.7-9.3); Neutrophils # 6.1 K/mm3 (1.8-7.8); Neutrophils % 65.5 % (37.0-80.0); Platelet Count 151 K/mm3 (142-424); Red Blood Count 4.64 M/mm3 (4.60-6.20); Red Cell Distribution Width 15.3 % (11.5-17.5); White Blood Count 9.3 K/mm3 (4.8-10.8)
[2023-11-09] MEDS: AMPICILLIN SODIUM/SULBACTAM 3 GM in 0.9 % SODIUM CHLORIDE 100 ML IV ×3 (08:34→20:17)
[2023-11-09] MEDS: ACETAMINOPHEN 500MG TAB 1000 MG PO ×3 (09:41→20:17)
[2023-11-09] MEDS: KETOROLAC 30MG/ML VIAL 15 MG IV ×3 (09:42→20:16)
--- NOTE | 2023-11-09 11:24 | XR_ITS ---
PROCEDURE INFORMATION: Exam: XR Abdomen Exam date and time: 11/09/2023 11:40 AM Age: 53 years old Clinical indication: Device placement; Gi device; Nasogastric tube; Additional info: Confirm ng placement TECHNIQUE: Imaging protocol: Radiologic exam of the abdomen. Views: Frontal supine view of the abdomen. 1 View. COMPARISON: CR XR ACUTE ABDOMEN SERIES 11/09/2023 9:54 AM FINDINGS: Tubes, catheters and devices: An enteric catheter is noted with its tip coiled over the left upper quadrant. Gastrointestinal tract: Bowel gas pattern is unchanged from the prior study. The lower abdomen and pelvis are excluded from the field of view. Bones/joints: Unremarkable. IMPRESSION: Interval repositioning of the enteric catheter.
[2023-11-09 16:00] VITALS: BP 123/85; PULSE 63; RESP 16; TEMP 36.6; O2SAT 95
[2023-11-09] MEDS: NICOTINE 21MG/24HR PATCH 21 MG TD (18:21)
--- NOTE | 2023-11-09 18:45 | PC.NURSE ---
PT IS RESTING IN BED. ALERT AND ORIENTED X4. PT HAS AMBULATED SEVERAL TIMES IN THE [place]. TOLERATED SITTING UP IN THE CHAIR FOR SEVERAL HOURS THIS SHIFT. 300 ML'S GREEN DRAINAGE EMPTIED FROM NG CANISTER. DRESSING TO ABDOMEN C/D/I. WILL CONTINUE TO MONITOR.
[2023-11-09 19:41] VITALS: BP 150/98; PULSE 71; RESP 18; TEMP 36.6; O2SAT 96
[2023-11-09] MEDS: PANTOPRAZOLE 40MG VIAL 40 MG IV (20:17)
[2023-11-10] MEDS: ACETAMINOPHEN 500MG TAB 1000 MG PO ×4 (02:38→20:32)
[2023-11-10] MEDS: KETOROLAC 30MG/ML VIAL 15 MG IV ×4 (02:38→20:32)
[2023-11-10] MEDS: AMPICILLIN SODIUM/SULBACTAM 3 GM in 0.9 % SODIUM CHLORIDE 100 ML IV ×4 (02:39→20:31)
[2023-11-10 04:00] VITALS: BP 141/86; PULSE 63; RESP 16; TEMP 36.6; O2SAT 94; BMI 32.1
[2023-11-10] MEDS: HYDROMORPHONE 2MG/ML SYRINGE 1 MG IV (05:43)
[2023-11-10 07:22] LABS: Basophils % 0.3 % (0.1-2.0); Eosinophils # 0.2 K/mm3 (0.0-0.4); Eosinophils % 2.5 % (0.1-12.0); Hematocrit 46.6 % (42.0-52.0); Hemoglobin 14.9 g/dL (14.1-18.0); Lymphocytes # 2.1 K/mm3 (0.7-4.5); Lymphocytes % 23.7 % (10-50); Mean Corpuscular Hemoglobin 30.5 pg (27.0-31.2); Mean Corpuscular Volume 95.3 fl (80-94); Mean Platelet Volume 9.2 fl (7.4-10.4); Monocytes # 0.7 K/mm3 (0.1-1.0); Neutrophils # 5.9 K/mm3 (1.8-7.8); Neutrophils % 65.6 % (37.0-80.0); Platelet Count 153 K/mm3 (142-424); Red Blood Count 4.89 M/mm3 (4.60-6.20); Red Cell Distribution Width 15.2 % (11.5-17.5); White Blood Count 8.9 K/mm3 (4.8-10.8)
[2023-11-10 07:25] LABS: Alanine Aminotransferase 22 U/L (12-78); Albumin Level 3.6 g/dl (3.5-5.0); Albumin/Globulin Ratio 1.2 (1.1-1.8); Alkaline Phosphatase 104 U/L (38-126); Anion Gap 10.8 mEq/L (5-15); Aspartate Amino Transferase 33 U/L (17-59); Bilirubin,Total 1.2 mg/dl (0.2-1.3); Blood Urea Nitrogen 32 mg/dl (9-20); Calcium 10.4 mg/dl (8.4-10.2); Carbon Dioxide 24 mmol/L (22.0-30.0); Chloride 105 mmol/L (98-107); Creatinine Clearance Estimated 82 mL/min (50-200); Estimated Glomerular Filt Rate 49 ml/min (>60); GFR (African American) 59 ML/MIN (>60); Globulin 3.1 g/dL (1.3-3.2); Glucose 69 mg/dl (74-100); Potassium 3.8 mmoL/L (3.5-5.1); Sodium 136 mmol/L (136-145); Total Protein,Serum 6.7 g/dl (6.3-8.2)
[2023-11-10 07:37] VITALS: BP 144/86; PULSE 65; RESP 20; TEMP 36.8; O2SAT 94
[2023-11-10 07:38] LABS: Magnesium 1.7 mg/dl (1.6-2.3)
--- NOTE | 2023-11-10 08:29 | P.PN_ITS ---
Subjective *Date: 11/10/23 *Time: 08:29 Medical Exam Vital signs and Labs for Last 24 Hours: Vital Signs Temp Pulse Resp BP Pulse Ox O2 Del Method 11/10/23 07:37 98.3 F 65 20 144/86 H 94 L Room Air 11/10/23 06:36 Room Air 11/10/23 05:00 Room Air 11/10/23 04:00 97.8 F 63 16 141/86 H 94 L Room Air 11/10/23 03:00 Room Air 11/10/23 01:00 Room Air 11/09/23 23:00 Room Air 11/09/23 21:00 Room Air 11/09/23 19:41 97.9 F 71 18 150/98 H 96 Room Air 11/09/23 19:28 Room Air 11/09/23 18:36 Room Air 11/09/23 16:58 Room Air 11/09/23 16:00 97.9 F 63 16 123/85 95 Room Air 11/09/23 15:00 Room Air 11/09/23 13:00 Room Air 11/09/23 10:50 Room Air 11/09/23 09:00 Room Air Intake and Output 11/09/23 11/10/23 11/10/23 23:59 07:59 15:59 Intake Total 100 / 100 Output Total 450 / 1450 Balance -450 / -725 100 / 100 Intake: Intake, Oral Amount 100 / 100 Output: Output, Urine Amount 150 / 1150 Output, Gastric Drainage Amount 300 / 300 Right Nare 300 / 300 Other: Number of Voids 0 2 Number of Unmeasured Voids 0 Number of Bowel Movements 1 Weight 103.9 kg Patient Weight 11/10/23 23:59 Weight 103.9 kg Laboratory Results - last 24 hr 11/10/23 06:21: WBC 8.9, RBC 4.89, Hgb 14.9, Hct 46.6, MCV 95.3 H, MCH 30.5, MCHC 32.0, RDW 15.2, Plt Count 153, MPV 9.2, Neut % (Auto) 65.6, Lymph % (Auto) 23.7, [place] % (Auto) 8.0, Eos % (Auto) 2.5, Baso % (Auto) 0.3, Neut # (Auto) 5.9, Lymph # (Auto) 2.1, [place] # (Auto) 0.7, Eos # (Auto) 0.2, Baso # (Auto) 0.0, Sodium 136, Potassium 3.8, Chloride 105, Carbon Dioxide 24, Anion Gap 10.8, BUN 32 H, Creatinine 1.50 H, Estimated Creat Clear 82, Estimated GFR 49 L, Est GFR ( Amer) 59, Glucose 69 L, Calcium 10.4 H, Magnesium 1.7, Total Bilirubin 1.2, AST 33, ALT 22, Alkaline Phosphatase 104, Total Protein 6.7, Albumin 3.6, Globulin 3.1, Albumin/Globulin Ratio 1.2 I & O for Labs for Last 24 Hours: Intake & Output 11/07/23 11/08/23 11/09/23 11/10/23 23:59 23:59 23:59 23:59 Intake Total 2800 / 2800 4436 / 5061 625 / 725 100 / 100 Output Total 775 / 775 2251 / 2651 1450 / 1450 Balance 2024 / 2024 2185 / 2410 -825 / -725 100 / 100 Weight 101.741 kg 103.9 kg 103.9 kg 103.9 kg Assessment and Plan *Assessment and plan (1) Hyperparathyroidism: Status: Acute Category: Medical Code(s): E21.3 - Hyperparathyroidism, unspecified (2) Status post reversal of ileostomy: Status: Acute Category: Surgical Code(s): Z98.890 - Other specified postprocedural states (3) Hypercalcemia: Status: Chronic Category: Medical Code(s): E83.52 - Hypercalcemia (4) Tobacco use: Status: Acute Category: Social Hx Code(s): Z72.0 - Tobacco use (5) Hypertension: Status: Chronic Qualifiers: Hypertension type: unspecified Qualified Code(s): I10 - Essential (primary) hypertension Category: Medical Code(s): I10 - Essential (primary) hypertension (6) Depressed: Status: Chronic Category: Medical Code(s): F32.A - Depression, unspecified (7) GERD (gastroesophageal reflux disease): Status: Chronic Qualifiers: Esophagitis presence: esophagitis presence not specified Qualified Code(s): K21.9 - Gastro-esophageal reflux disease without esophagitis Category: Medical Code(s): K21.9 - Gastro-esophageal reflux disease without esophagitis (8) CKD stage 3a, GFR 45-59 ml/min: Status: Acute Category: Medical Code(s): N18.31 - Chronic kidney disease, stage 3a Plan 53-year-old male with loop ileostomy, history of parathyroidism, hypercalcemia, tobacco use disorder and hypertension. Presented for elective reversal of loop ileostomy. Discussed case with surgery, admitting after procedure and requests medicine's assistance in medical management. Patient tolerated the procedure well. Having some postoperative pain. Tolerating pain regimen this morning. Pain improving. Had 2 bowel movements overnight. Continues to require inpatient management. Medically stable at this time. Problems addressed as follows: Status post reversal of loop ileostomy -Having bowel movements. Anticipate NG removal and advancement of diet today. surgery is managing. -Required 3 doses of IV Dilaudid yesterday, de-escalate Dilaudid to 0.5 mg IV every 6 hours as needed. Continue schedule Tylenol 1000 mg 4 times a day for and Toradol 15 mg every 6 hours. IV opiates necessitating close monitoring for toxicity. -Discontinue IV fluids -Continue Zofran 4 mg IV every 6 hours as needed for nausea -Continue pantoprazole 40 mg nightly for GERD and to decrease GI bleeding risk No diagnosis of COPD however has extensive history of smoking with over [id number] history. DuoNebs as needed every 6 hours. -Goal sats greater 90%. Currently on room air. Supplemental oxygen as needed. -Nicotine patch daily as needed Depression: Continue home amitriptyline 100 mg nightly Hypertension: Holding lisinopril in the setting of normal blood pressure postop Hypercalcemia Hyperparathyroidism CKD 3: Stable -Calcium 10.4, magnesium 1.8, potassium 3.8. Repeat CBC, CMP, magnesium ordered for the morning. Kidney function stable with BUN 32, creatinine 1.5, within his normal range. Monitoring daily given IV Toradol. -PTH 328 1 month ago. Follows with ENT, will follow with them as an outpatient after discharge. Current discussion about further parathyroidectomy. Full code Advance diet per surgery recs today Thank you for the opportunity to consult on this patient and assist with care. Will continue to follow along while he is admitted.
--- NOTE | 2023-11-10 09:54 | P.PN_ITS ---
Subjective Narrative: Patient doing well. No complaints. Has had several loose bowel movements. Exam Data for Last 24 hours Vital signs and Labs for Last 24 Hours: Temp Pulse Resp BP Pulse Ox O2 Del Method O2 Flow Rate 98.3 F 65 20 144/86 H 94 L Room Air 1 11/10/23 07:37 11/10/23 07:37 11/10/23 07:37 11/10/23 07:37 11/10/23 07:37 11/10/23 07:37 11/07/23 16:50 Laboratory Results - last 24 hr 11/10/23 06:21: WBC 8.9, RBC 4.89, Hgb 14.9, Hct 46.6, MCV 95.3 H, MCH 30.5, MCHC 32.0, RDW 15.2, Plt Count 153, MPV 9.2, Neut % (Auto) 65.6, Lymph % (Auto) 23.7, [place] % (Auto) 8.0, Eos % (Auto) 2.5, Baso % (Auto) 0.3, Neut # (Auto) 5.9, Lymph # (Auto) 2.1, [place] # (Auto) 0.7, Eos # (Auto) 0.2, Baso # (Auto) 0.0, Sodium 136, Potassium 3.8, Chloride 105, Carbon Dioxide 24, Anion Gap 10.8, BUN 32 H, Creatinine 1.50 H, Estimated Creat Clear 82, Estimated GFR 49 L, Est GFR ( Amer) 59, Glucose 69 L, Calcium 10.4 H, Magnesium 1.7, Total Bilirubin 1.2, AST 33, ALT 22, Alkaline Phosphatase 104, Total Protein 6.7, Albumin 3.6, Globulin 3.1, Albumin/Globulin Ratio 1.2 I & O for Last 24 hours: Intake & Output 11/07/23 11/08/23 11/09/23 11/10/23 11:59 11:59 11:59 11:59 Intake Total 2800 / 2800 4436 / 4436 625 / 625 100 / 100 Output Total 400 / 400 1525 / 1525 2101 / 2101 450 / 450 Balance 2400 / 2400 2911 / 2911 -1476 / -1476 -350 / -350 Weight 224 lb 4.8 oz 229 lb 1.6 oz 229 lb 0.964 oz 229 lb 0.964 oz *Routine Abdominal Exam Abdominal: Present soft Comments: Abdomen is soft. Less distention. Ileostomy surgical site clean and intact. Progress Note: A&P Assessment and plan (1) Hyperparathyroidism: Status: Acute (2) Status post reversal of ileostomy: Status: Acute Assessment and plan: Remove NG tube. Start limited to clear liquids. If tolerates clear liquid tray tonight. (3) Hypercalcemia: Status: Chronic (4) Tobacco use: Status: Acute (5) Hypertension: Status: Chronic (6) Depressed: Status: Chronic (7) GERD (gastroesophageal reflux disease): Status: Chronic (8) CKD stage 3a, GFR 45-59 ml/min: Status: Acute
--- NOTE | 2023-11-10 11:37 | PC.NURSE ---
NG tube was removed during this shift (1100)
[2023-11-10 16:00] VITALS: BP 138/98; PULSE 59; RESP 16; TEMP 36.6; O2SAT 97
[2023-11-10] MEDS: HYDROMORPHONE 2MG/ML SYRINGE 0.5 MG IV (17:39)
[2023-11-10 20:00] VITALS: BP 142/95; PULSE 59; RESP 17; TEMP 36.5; O2SAT 97
[2023-11-10] MEDS: PANTOPRAZOLE 40MG VIAL 40 MG IV (20:32)
[2023-11-10] MEDS: NICOTINE 21MG/24HR PATCH 21 MG TD (21:55)
[2023-11-11] MEDS: HYDROMORPHONE 2MG/ML SYRINGE 0.5 MG IV ×2 (01:35→07:46)
[2023-11-11] MEDS: AMPICILLIN SODIUM/SULBACTAM 3 GM in 0.9 % SODIUM CHLORIDE 100 ML IV ×2 (02:00→08:14)
[2023-11-11] MEDS: KETOROLAC 30MG/ML VIAL 15 MG IV (02:00)
[2023-11-11] MEDS: ACETAMINOPHEN 500MG TAB 1000 MG PO ×2 (02:00→08:14)
[2023-11-11 04:00] VITALS: BP 148/89; PULSE 59; RESP 16; TEMP 36.5; O2SAT 96; BMI 31.2
[2023-11-11 06:39] LABS: Basophils # 0.1 K/mm3 (0-0.2); Basophils % 0.6 % (0.1-2.0); Eosinophils # 0.3 K/mm3 (0.0-0.4); Eosinophils % 3.7 % (0.1-12.0); Hematocrit 45.1 % (42.0-52.0); Hemoglobin 14.9 g/dL (14.1-18.0); Lymphocytes % 23.3 % (10-50); Mean Corpuscular Hemoglobin 30.6 pg (27.0-31.2); Mean Corpuscular Volume 92.6 fl (80-94); Mean Platelet Volume 9.3 fl (7.4-10.4); Monocytes # 0.7 K/mm3 (0.1-1.0); Monocytes % 7.7 % (1.7-9.3); Neutrophils # 5.5 K/mm3 (1.8-7.8); Neutrophils % 64.7 % (37.0-80.0); Platelet Count 178 K/mm3 (142-424); Red Blood Count 4.87 M/mm3 (4.60-6.20); Red Cell Distribution Width 15.1 % (11.5-17.5); White Blood Count 8.6 K/mm3 (4.8-10.8)
[2023-11-11 06:51] LABS: Alanine Aminotransferase 22 U/L (12-78); Albumin Level 3.6 g/dl (3.5-5.0); Albumin/Globulin Ratio 1.2 (1.1-1.8); Alkaline Phosphatase 104 U/L (38-126); Anion Gap 12.5 mEq/L (5-15); Aspartate Amino Transferase 31 U/L (17-59); Bilirubin,Total 0.9 mg/dl (0.2-1.3); Blood Urea Nitrogen 27 mg/dl (9-20); Calcium 10.4 mg/dl (8.4-10.2); Carbon Dioxide 24 mmol/L (22.0-30.0); Chloride 105 mmol/L (98-107); Creatinine Clearance Estimated 85 mL/min (50-200); Estimated Glomerular Filt Rate 53 ml/min (>60); GFR (African American) 64 ML/MIN (>60); Globulin 3.1 g/dL (1.3-3.2); Glucose 80 mg/dl (74-100); Potassium 3.5 mmoL/L (3.5-5.1); Sodium 138 mmol/L (136-145); Total Protein,Serum 6.7 g/dl (6.3-8.2)
[2023-11-11 06:59] LABS: Magnesium 1.8 mg/dl (1.6-2.3)
[2023-11-11 07:35] VITALS: O2SAT 97
[2023-11-11 08:00] VITALS: BP 149/94; PULSE 60; RESP 18; TEMP 36.6; O2SAT 97
--- NOTE | 2023-11-11 08:24 | EXP.SURG.PN ---
Subjective Narrative: Patient doing well. Still asking for chocolate glazed doughnuts. Bowels moving. Tolerating clear liquids. Some blood noted with bowel movement. No pain with bowel movements. Some incisional discomfort. No nausea. Exam Data for Last 24 hours Vital signs and Labs for Last 24 Hours: Temp Pulse Resp BP Pulse Ox O2 Del Method O2 Flow Rate 97.7 F 59 L 16 148/89 H 96 Room Air 1 11/11/23 04:00 11/11/23 04:00 11/11/23 04:00 11/11/23 04:00 11/11/23 04:00 11/11/23 04:00 11/07/23 16:50 Laboratory Results - last 24 hr 11/11/23 06:02: WBC 8.6, RBC 4.87, Hgb 14.9, Hct 45.1, MCV 92.6, MCH 30.6, MCHC 33.0, RDW 15.1, Plt Count 178, MPV 9.3, Neut % (Auto) 64.7, Lymph % (Auto) 23.3, [place] % (Auto) 7.7, Eos % (Auto) 3.7, Baso % (Auto) 0.6, Neut # (Auto) 5.5, Lymph # (Auto) 2.0, [place] # (Auto) 0.7, Eos # (Auto) 0.3, Baso # (Auto) 0.1, Sodium 138, Potassium 3.5, Chloride 105, Carbon Dioxide 24, Anion Gap 12.5, BUN 27 H, Creatinine 1.40 H, Estimated Creat Clear 85, Estimated GFR 53 L, Est GFR ( Amer) 64, Glucose 80, Calcium 10.4 H, Magnesium 1.8, Total Bilirubin 0.9, AST 31, ALT 22, Alkaline Phosphatase 104, Total Protein 6.7, Albumin 3.6, Globulin 3.1, Albumin/Globulin Ratio 1.2 I & O for Last 24 hours: Intake & Output 11/08/23 11/09/23 11/10/23 11/11/23 11:59 11:59 11:59 11:59 Intake Total 4436 / 4436 625 / 625 100 / 100 660 / 660 Output Total 1525 / 1525 2101 / 2101 450 / 450 0 / 0 Balance 2911 / 2911 -1476 / -1476 -350 / -350 660 / 660 Weight 229 lb 1.6 oz 229 lb 0.964 oz 229 lb 0.964 oz 223 lb 4.8 oz *Routine Abdominal Exam Abdominal: Present soft Progress Note: A&P Assessment and plan (1) Hyperparathyroidism: Status: Acute (2) Status post reversal of ileostomy: Status: Acute Assessment and plan: Advance to full liquid diet. Transition to oral pain meds. Discontinue antibiotics. (3) Hypercalcemia: Status: Chronic (4) Tobacco use: Status: Acute (5) Hypertension: Status: Chronic (6) Depressed: Status: Chronic (7) GERD (gastroesophageal reflux disease): Status: Chronic (8) CKD stage 3a, GFR 45-59 ml/min: Status: Acute
--- NOTE | 2023-11-11 09:06 | P.PN_ITS ---
Subjective *Date: 11/11/23 *Time: 09:06 Interval history: No acute events overnight. Afebrile. Tolerating p.o. intake. Multiple bowel movements. Had some dark blood in his stool this morning. No nausea or vomiting. Stable on room air Medical Exam Vital signs and Labs for Last 24 Hours: Vital Signs Temp Pulse Resp BP Pulse Ox O2 Del Method 11/11/23 08:00 97.8 F 60 18 149/94 H 97 Room Air 11/11/23 04:00 97.7 F 59 L 16 148/89 H 96 Room Air 11/10/23 20:00 Room Air 11/10/23 20:00 97.7 F 59 L 17 142/95 H 97 Room Air 11/10/23 18:37 Room Air 11/10/23 16:58 Room Air 11/10/23 16:00 97.8 F 59 L 16 138/98 H 97 Room Air 11/10/23 14:42 Room Air 11/10/23 12:39 Room Air 11/10/23 11:00 Room Air Intake and Output 11/10/23 11/11/23 11/11/23 23:59 07:59 15:59 Intake Total 540 / 760 240 / 240 Output Total 0 / 0 0 / 0 Balance 540 / 760 0 / 240 240 / 240 Intake: Intake, Oral Amount 540 / 760 240 / 240 Output: Output, Urine Amount 0 / 0 0 / 0 Other: Number of Unmeasured Voids 1 1 Number of Bowel Movements 1 1 Weight 101.287 kg Patient Weight 11/11/23 23:59 Weight 101.287 kg Laboratory Results - last 24 hr 11/11/23 06:02: WBC 8.6, RBC 4.87, Hgb 14.9, Hct 45.1, MCV 92.6, MCH 30.6, MCHC 33.0, RDW 15.1, Plt Count 178, MPV 9.3, Neut % (Auto) 64.7, Lymph % (Auto) 23.3, [place] % (Auto) 7.7, Eos % (Auto) 3.7, Baso % (Auto) 0.6, Neut # (Auto) 5.5, Lymph # (Auto) 2.0, [place] # (Auto) 0.7, Eos # (Auto) 0.3, Baso # (Auto) 0.1, Sodium 138, Potassium 3.5, Chloride 105, Carbon Dioxide 24, Anion Gap 12.5, BUN 27 H, Creatinine 1.40 H, Estimated Creat Clear 85, Estimated GFR 53 L, Est GFR ( Amer) 64, Glucose 80, Calcium 10.4 H, Magnesium 1.8, Total Bilirubin 0.9, AST 31, ALT 22, Alkaline Phosphatase 104, Total Protein 6.7, Albumin 3.6, Globulin 3.1, Albumin/Globulin Ratio 1.2 I & O for Labs for Last 24 Hours: Intake & Output 11/08/23 11/09/23 11/10/23 11/11/23 23:59 23:59 23:59 23:59 Intake Total 4436 / 5061 625 / 725 760 / 760 240 / 240 Output Total 2251 / 2651 1450 / 1450 0 / 0 0 / 0 Balance 2185 / 2410 -825 / -725 760 / 760 240 / 240 Weight 103.9 kg 103.9 kg 103.9 kg 101.287 kg Constitutional: Present no acute distress, chronically ill appearing and cooperative Head: Present atraumatic and normocephalic ENT: Present normal exam Neck: Present normal inspection Respiratory: Present CTA bilaterally; Absent rhonchi, wheezes or crackles Cardiac: Present Reg Rate and Rhythm GI: Present soft, tenderness (Minimal, right lower quadrant. Interval improvement) and normal bowel sounds Comments:: Incision clean dry and intact Extremities: Absent edema Skin: Present intact Neuro: Present alert, awake and moves all extremities Assessment and Plan *Assessment and plan (1) Hyperparathyroidism: Status: Acute Category: Medical Code(s): E21.3 - Hyperparathyroidism, unspecified (2) Status post reversal of ileostomy: Status: Acute Category: Surgical Code(s): Z98.890 - Other specified postprocedural states (3) Hypercalcemia: Status: Chronic Category: Medical Code(s): E83.52 - Hypercalcemia (4) Tobacco use: Status: Acute Category: Social Hx Code(s): Z72.0 - Tobacco use (5) Hypertension: Status: Chronic Qualifiers: Hypertension type: unspecified Qualified Code(s): I10 - Essential (primary) hypertension Category: Medical Code(s): I10 - Essential (primary) hypertension (6) Depressed: Status: Chronic Category: Medical Code(s): F32.A - Depression, unspecified (7) GERD (gastroesophageal reflux disease): Status: Chronic Qualifiers: Esophagitis presence: esophagitis presence not specified Qualified Code(s): K21.9 - Gastro-esophageal reflux disease without esophagitis Category: Medical Code(s): K21.9 - Gastro-esophageal reflux disease without esophagitis (8) CKD stage 3a, GFR 45-59 ml/min: Status: Acute Category: Medical Code(s): N18.31 - Chronic kidney disease, stage 3a Plan 53-year-old male with loop ileostomy, history of parathyroidism, hypercalcemia, tobacco use disorder and hypertension. Presented for elective reversal of loop ileostomy. Discussed case with surgery, admitting after procedure and requests medicine's assistance in medical management. Patient tolerated the procedure well. Pain showing gradual improvement. Decreasing pain regimen today. Having multiple bowel movements daily. Had some blood in his stool today. Hemoglobin remained stable however. Surgery managing, continues to require inpatient management. Showing improvement clinically. Anticipate discharge in the next day or 2. Problems addressed as follows: Status post reversal of loop ileostomy -Having bowel movements. Tolerating advancement of diet. Increase to full liquids today. surgery is managing. -Required 3 doses of IV Dilaudid yesterday of 0.5 mg IV. Will de-escalate to oral hydrocodone today. Continue Tylenol scheduled. Discontinue Toradol given blood in stool. -Continue Zofran 4 mg IV every 6 hours as needed for nausea -Continue pantoprazole 40 mg nightly for GERD and to decrease GI bleeding risk No diagnosis of COPD however has extensive history of smoking with over [id number] history. DuoNebs as needed every 6 hours. -Goal sats greater 90%. Currently on room air. Supplemental oxygen as needed. -Nicotine patch daily as needed Depression: Continue home amitriptyline 100 mg nightly Hypertension: Resume lisinopril with discontinuation of Toradol and increase in blood pressure Hypercalcemia Hyperparathyroidism CKD 3: Stable -Calcium 10.4, magnesium 1.8, potassium 3.5. Repeat CBC, CMP, magnesium ordered for the morning. Kidney function stable with BUN 27, creatinine 1.4, within his normal range. -PTH 328 1 month ago. Follows with ENT, will follow with them as an outpatient after discharge. Current discussion about further parathyroidectomy. Full code Advance diet per surgery recs today Thank you for the opportunity to consult on this patient and assist with care. Will continue to follow along while he is admitted.
[2023-11-11] MEDS: HYDROCODONE/APAP 5/325 MG TABLET 1 TAB PO ×2 (15:22→20:10)
[2023-11-11 15:49] VITALS: BP 145/80; PULSE 54; RESP 18; TEMP 36.5; O2SAT 98
--- NOTE | 2023-11-11 17:56 | PC.NURSE ---
Patient alert & oriented x4 throughout shift. Tolerating room air and full liquid diet well. Ambulated halls multiple times throughout shift with no complaints. Abdomen dressing C/D/I. Complaints of pain and treated per MAR. Call light within reach.
[2023-11-11 20:00] VITALS: BP 149/101; PULSE 56; RESP 18; TEMP 36.8; O2SAT 98
[2023-11-11] MEDS: AMITRIPTYLINE 50MG TABLET 100 MG PO (20:10)
[2023-11-11] MEDS: PANTOPRAZOLE 40MG TABLET 40 MG PO (20:10)
[2023-11-11] MEDS: MELATONIN 5MG TABLET 5 MG PO (20:36)
[2023-11-12 04:00] VITALS: BP 140/90; PULSE 58; RESP 18; TEMP 36.8; O2SAT 94; BMI 30.9
--- NOTE | 2023-11-12 06:21 | EXP.MED.FU ---
Subjective *Date: 11/12/23 *Time: 06:21 Interval history: Patient did well overnight. No nausea or vomiting. No further bowel movements overnight. Did have a bowel movement yesterday that had minor amount of blood in it. Awaiting morning labs to monitor hemoglobin level. Afebrile overnight. Stable on room air. Tolerating full liquid diet without difficulty. Abdominal pain stable Exam Data for Last 24 hours Vital signs and Labs for Last 24 Hours: Temp Pulse Resp BP Pulse Ox O2 Del Method O2 Flow Rate 98.3 F 56 L 18 149/101 H 98 Room Air 1 11/11/23 20:00 11/11/23 20:00 11/11/23 20:00 11/11/23 20:00 11/11/23 20:00 11/12/23 05:00 11/07/23 16:50 Laboratory Results - last 24 hr 11/11/23 06:02: WBC 8.6, RBC 4.87, Hgb 14.9, Hct 45.1, MCV 92.6, MCH 30.6, MCHC 33.0, RDW 15.1, Plt Count 178, MPV 9.3, Neut % (Auto) 64.7, Lymph % (Auto) 23.3, [place] % (Auto) 7.7, Eos % (Auto) 3.7, Baso % (Auto) 0.6, Neut # (Auto) 5.5, Lymph # (Auto) 2.0, [place] # (Auto) 0.7, Eos # (Auto) 0.3, Baso # (Auto) 0.1, Sodium 138, Potassium 3.5, Chloride 105, Carbon Dioxide 24, Anion Gap 12.5, BUN 27 H, Creatinine 1.40 H, Estimated Creat Clear 85, Estimated GFR 53 L, Est GFR ( Amer) 64, Glucose 80, Calcium 10.4 H, Magnesium 1.8, Total Bilirubin 0.9, AST 31, ALT 22, Alkaline Phosphatase 104, Total Protein 6.7, Albumin 3.6, Globulin 3.1, Albumin/Globulin Ratio 1.2 I & O for Last 24 hours: Intake & Output 11/09/23 11/10/23 11/11/23 11/12/23 23:59 23:59 23:59 23:59 Intake Total 625 / 725 760 / 760 1200 / 1300 100 / 100 Output Total 1450 / 1450 0 / 0 0 / 0 Balance -825 / -725 760 / 760 1200 / 1300 100 / 100 Weight 103.9 kg 103.9 kg 101.287 kg Constitutional Constitutional: no acute distress, obese, chronically ill appearing and cooperative *Routine HEENT Exam Head: Present normocephalic and atraumatic Eye: Present EOMI and PERRL ENT: Present mucous membranes moist Comments: NG in nose *Routine Neck Exam Neck: Present supple *Routine Respiratory Exam Respiratory: Present rhonchi and normal respiratory effort; Absent wheezes or crackles *Routine Cardiovascular Exam Cardiovascular: Present RRR *Routine Abdominal Exam Abdominal: Present soft, normoactive bowel sounds, tenderness (Minimal, significantly improved) and surgical scars; Absent distended Comments: Well-healed midline abdominal scar, surgical bandage over right lower abdomen. Bandage is clean dry and intact. *Routine Rectal Exam Patient deferred: visual exam *Routine Exam Patient deferred: penile exam *Routine Extremities Exam Extremities: Absent cyanosis, clubbing or edema *Routine Skin Exam Skin: Present intact; Absent cyanosis *Routine Neurological Exam Neurological: Present alert, oriented X3 and moving all extremities; Absent altered mental status Assessment and Plan *Assessment and plan (1) Hyperparathyroidism: Status: Acute Category: Medical Code(s): E21.3 - Hyperparathyroidism, unspecified (2) Status post reversal of ileostomy: Status: Acute Category: Surgical Code(s): Z98.890 - Other specified postprocedural states (3) Hypercalcemia: Status: Chronic Category: Medical Code(s): E83.52 - Hypercalcemia (4) Tobacco use: Status: Acute Category: Social Hx Code(s): Z72.0 - Tobacco use (5) Hypertension: Status: Chronic Qualifiers: Hypertension type: unspecified Qualified Code(s): I10 - Essential (primary) hypertension Category: Medical Code(s): I10 - Essential (primary) hypertension (6) Depressed: Status: Chronic Category: Medical Code(s): F32.A - Depression, unspecified (7) GERD (gastroesophageal reflux disease): Status: Chronic Qualifiers: Esophagitis presence: esophagitis presence not specified Qualified Code(s): K21.9 - Gastro-esophageal reflux disease without esophagitis Category: Medical Code(s): K21.9 - Gastro-esophageal reflux disease without esophagitis (8) CKD stage 3a, GFR 45-59 ml/min: Status: Acute Category: Medical Code(s): N18.31 - Chronic kidney disease, stage 3a Plan 53-year-old male with loop ileostomy, history of parathyroidism, hypercalcemia, tobacco use disorder and hypertension. Presented for elective reversal of loop ileostomy. Discussed case with surgery, admitting after procedure and requests medicine's assistance in medical management. Patient tolerated the procedure well. Tolerating p.o. regimen for pain. Tolerating advancement of diet. Stable to discharge home from medicine standpoint. Will defer final decision to surgery. Problems addressed as follows: Status post reversal of loop ileostomy -Having bowel movements. Tolerating advancement of diet with full liquids. surgery is managing. -Tolerating oral pain regimen. -Continue Zofran 4 mg IV every 6 hours as needed for nausea -Continue pantoprazole 40 mg nightly for GERD and to decrease GI bleeding risk No diagnosis of COPD however has extensive history of smoking with over 20-zctc-wmvb history. DuoNebs as needed every 6 hours. -Goal sats greater 90%. Currently on room air. Supplemental oxygen as needed. -Nicotine patch daily as needed Depression: Continue home amitriptyline 100 mg nightly Hypertension: Lisinopril 5 mg daily per home regimen Hypercalcemia Hyperparathyroidism CKD 3: Stable -Electrolytes, calcium, kidney function at baseline for patient. Defer further management to ENT for his hyperparathyroidism. -PTH 328 1 month ago. Follows with ENT, will follow with them as an outpatient after discharge. Current discussion about further parathyroidectomy. Full code Advance diet per surgery recs today Thank you for the opportunity to consult on this patient and assist with care. We will sign off at this time. Patient stable to discharge from medicine standpoint.
[2023-11-12 06:35] LABS: Basophils % 0.3 % (0.1-2.0); Eosinophils # 0.3 K/mm3 (0.0-0.4); Eosinophils % 3.6 % (0.1-12.0); Hematocrit 43.2 % (42.0-52.0); Hemoglobin 14.2 g/dL (14.1-18.0); Lymphocytes # 2.4 K/mm3 (0.7-4.5); Lymphocytes % 27.3 % (10-50); Mean Corpuscular HGB Conc 32.8 g/dL (31.8-35.4); Mean Corpuscular Hemoglobin 30.5 pg (27.0-31.2); Mean Corpuscular Volume 92.9 fl (80-94); Mean Platelet Volume 9.5 fl (7.4-10.4); Monocytes # 0.6 K/mm3 (0.1-1.0); Neutrophils # 5.4 K/mm3 (1.8-7.8); Neutrophils % 61.8 % (37.0-80.0); Platelet Count 188 K/mm3 (142-424); Red Blood Count 4.65 M/mm3 (4.60-6.20); Red Cell Distribution Width 15.2 % (11.5-17.5); White Blood Count 8.7 K/mm3 (4.8-10.8)
[2023-11-12 06:43] LABS: Alanine Aminotransferase 19 U/L (12-78); Albumin Level 3.5 g/dl (3.5-5.0); Albumin/Globulin Ratio 1.1 (1.1-1.8); Alkaline Phosphatase 103 U/L (38-126); Anion Gap 12.5 mEq/L (5-15); Aspartate Amino Transferase 27 U/L (17-59); Bilirubin,Total 0.6 mg/dl (0.2-1.3); Blood Urea Nitrogen 20 mg/dl (9-20); Calcium 10.5 mg/dl (8.4-10.2); Carbon Dioxide 23 mmol/L (22.0-30.0); Chloride 106 mmol/L (98-107); Creatinine Clearance Estimated 92 mL/min (50-200); Estimated Glomerular Filt Rate 57 ml/min (>60); GFR (African American) 69 ML/MIN (>60); Globulin 3.2 g/dL (1.3-3.2); Glucose 96 mg/dl (74-100); Potassium 3.5 mmoL/L (3.5-5.1); Sodium 138 mmol/L (136-145); Total Protein,Serum 6.7 g/dl (6.3-8.2)
--- NOTE | 2023-11-12 07:45 | EXP.SURG.PN ---
Subjective Narrative: Doing well. Tolerating full liquid diet. Bowels moving. Less blood. No nausea. Exam Data for Last 24 hours Vital signs and Labs for Last 24 Hours: Temp Pulse Resp BP Pulse Ox O2 Del Method O2 Flow Rate 98.3 F 58 L 18 140/90 94 L Room Air 1 11/12/23 04:00 11/12/23 04:00 11/12/23 04:00 11/12/23 04:00 11/12/23 04:00 11/12/23 06:53 11/07/23 16:50 Laboratory Results - last 24 hr 11/12/23 05:45: WBC 8.7, RBC 4.65, Hgb 14.2, Hct 43.2, MCV 92.9, MCH 30.5, MCHC 32.8, RDW 15.2, Plt Count 188, MPV 9.5, Neut % (Auto) 61.8, Lymph % (Auto) 27.3, [place] % (Auto) 7.0, Eos % (Auto) 3.6, Baso % (Auto) 0.3, Neut # (Auto) 5.4, Lymph # (Auto) 2.4, [place] # (Auto) 0.6, Eos # (Auto) 0.3, Baso # (Auto) 0.0, Sodium 138, Potassium 3.5, Chloride 106, Carbon Dioxide 23, Anion Gap 12.5, BUN 20 D, Creatinine 1.30 H, Estimated Creat Clear 92, Estimated GFR 57 L, Est GFR ( Amer) 69, Glucose 96, Calcium 10.5 H, Magnesium 2.0 D, Total Bilirubin 0.6, AST 27, ALT 19, Alkaline Phosphatase 103, Total Protein 6.7, Albumin 3.5, Globulin 3.2, Albumin/Globulin Ratio 1.1 I & O for Last 24 hours: Intake & Output 11/09/23 11/10/23 11/11/23 11/12/23 11:59 11:59 11:59 11:59 Intake Total 625 / 625 100 / 100 900 / 900 1060 / 1060 Output Total 2101 / 2101 450 / 450 0 / 0 0 / 0 Balance -1476 / -1476 -350 / -350 900 / 900 1060 / 1060 Weight 229 lb 0.964 oz 229 lb 0.964 oz 223 lb 4.8 oz 220 lb 9 oz *Routine Abdominal Exam Abdominal: Present soft Comments: Surgical site clean and intact Progress Note: A&P Assessment and plan (1) Hyperparathyroidism: Status: Acute (2) Status post reversal of ileostomy: Status: Acute Assessment and plan: Discharge home (3) Hypercalcemia: Status: Chronic (4) Tobacco use: Status: Acute (5) Hypertension: Status: Chronic (6) Depressed: Status: Chronic (7) GERD (gastroesophageal reflux disease): Status: Chronic (8) CKD stage 3a, GFR 45-59 ml/min: Status: Acute
[2023-11-12 07:55] VITALS: BP 155/99; PULSE 62; RESP 17; TEMP 36.4; O2SAT 94
[2023-11-12] MEDS: ACETAMINOPHEN 500MG TAB 1000 MG PO (08:10)
--- NOTE | 2023-11-12 08:34 | HMH.PHAINT1 ---
Pharmacy Intervention Comments: DISCHARGE MEDICATION COUNSELING PROVIDED. DISCUSSED THE FOLLOWING NEW MEDICATION: -NORCO (TAKE ONE TO TWO TABLETS EVERY 6 HOURS NEEDED FOR PAIN, IF NOT IN PAIN YOU DO NOT HAVE TO TAKE, MAY CAUSE NAUSEA/VOMITING, MAY TAKE WITH FOOD, CONSTIPATION AND SEDATION POSSIBLE) PATIENT VERBALIZED NO QUESTIONS AT THIS TIME.
--- NOTE | 2023-11-13 10:08 | CARE MANAGER ---
Called and spoke with patient regarding recent discharge. Patient states that he is doing well, no concerns voiced at time of call. Transferred him to scheduling so that he can get preregistered for his testing tomorrow.
--- NOTE | 2023-11-25 13:31 | P.DS_ITS ---
General Admission date:: 11/07/23 Discharge date: 11/12/23 HPI HPI HPI: Patient is a 53-year-old male with complex prior surgical history. In summary he had developed findings consistent with high-grade partial distal obstruction in late 2020 for which she had undergone thorough evaluation and investigation by general surgery at [facility] without obvious etiology. He had developed recurrent symptoms and was evaluated at [facility] in the spring 2021 and ultimately underwent sigmoid colon resection for what was proven to be chronic complicated diverticulitis with high-grade partial obstruction and abscess on 12/14/2021. He did have a diverting proximal loop ileostomy at that time with a low pelvic anastomosis. He had to return to the operating room on 12/16/2021 due to anastomotic leak and severe fecal peritonitis despite having proximal diversion. At that time he had creation of an end colostomy to accompany his loop ileostomy. He had a prolonged hospital stay fo [facility] that for about 4 weeks and ultimately went to [facility]. Patient has been extremely anxious to have his ostomy is reversed. After thorough investigative imaging studies and colonoscopy patient ultimately underwent reversal of the end colostomy leaving the proximal loop ileostomy. Patient then underwent additional evaluation with contrast imaging with Gastroview followed by barium enema and then had a colonoscopy performed to assess the anastomosis and rule out stricture. He has been extremely anxious to have the loop ileostomy reversed. He has had some issues with hypercalcemia and has been admitted occasionally for IV fluid hydration. He has seen ENT who is apparently potentially considering follow-up parathyroid surgery after Sestamibi scan. Patient strongly wished to pursue reversal and takedown of his ileostomy. Patient was made aware of the potential complications including bleeding, infection, anesthetic risk, obstruction, anastomotic leak, and recurrent diverticulitis. He strongly wished to pursue ileostomy takedown. Hospital Course Hospital Course Hospital Course: Patient presented for operation on 11/07/2023. He was taken to the operating room and underwent takedown of ileostomy with stapled anastomosis on 11/07/2023. Please see operative dictation for complete details. He was admitted for inpatient management. Hospitalist service was consulted for medical management. On postoperative day #1 there was some concern for possible blood-tinged aspirate in his nasogastric tube. His Segura catheter was removed on postoperative day #1. He had better pain control with hydromorphone as opposed to morphine. A couple of days postoperatively he states that he may have passed some gas. Plan was for ambulation with nasogastric tube clamped. He had several loose bowel movements on postoperative day #3. At that time his nasogastric tube was removed and he was started on limited clear liquids. He had additional bowel movements. There was some dark blood in his stool which is felt to be likely secondary to inflammation from his devitalized colon or some anastomotic oozing. This resolved over time and his hemoglobin remained within reasonable limits. Patient repeatedly asked for some chocolate glazed doughnuts. He was tolerating clear liquids. He was transitioned to oral pain medications. Antibiotics were discontinued. He was given full liquid diet on postoperative day #4. Tolerated full liquid diet without difficulty. Bowels are moving with less apparent noticeable blood. Arrangements were made for discharge home. Exam Data for Last 24 hours Vital signs and Labs for Last 24 Hours: Temp Pulse Resp BP Pulse Ox O2 Del Method O2 Flow Rate 97.5 F L 62 17 155/99 H 94 L Room Air 1 11/12/23 07:55 11/12/23 07:55 11/12/23 07:55 11/12/23 07:55 11/12/23 07:55 11/12/23 08:00 11/07/23 16:50 DS: Diagnosis Discharge Diagnosis (1) Hyperparathyroidism: Status: Inactive Code(s): E21.3 - Hyperparathyroidism, unspecified (2) Status post reversal of ileostomy: Status: Deleted Code(s): Z98.890 - Other specified postprocedural states (3) Hypercalcemia: Status: Inactive Code(s): E83.52 - Hypercalcemia (4) Tobacco use: Status: Inactive Code(s): Z72.0 - Tobacco use (5) Hypertension: Status: Inactive Code(s): I10 - Essential (primary) hypertension Qualifiers: Hypertension type: unspecified Qualified Code(s): I10 - Essential (primary) hypertension (6) Depressed: Status: Inactive Code(s): F32.A - Depression, unspecified (7) GERD (gastroesophageal reflux disease): Status: Inactive Code(s): K21.9 - Gastro-esophageal reflux disease without esophagitis Qualifiers: Esophagitis presence: esophagitis presence not specified Qualified Code(s): K21.9 - Gastro-esophageal reflux disease without esophagitis (8) CKD stage 3a, GFR 45-59 ml/min: Status: Inactive Code(s): N18.31 - Chronic kidney disease, stage 3a Meds Home Medications and Allergies Home Medications Medication Instructions Recorded Confirmed Type lisinopril 5 mg tablet 5 mg PO DAILY 05/03/23 11/19/23 History ondansetron 4 mg disintegrating 4 mg PO Q8HP PRN Nausea And 05/14/23 11/19/23 Rx tablet Vomiting #14 tabs amitriptyline 100 mg tablet 100 mg PO HS 08/08/23 11/19/23 History rimegepant 75 mg disintegrating 75 mg PO DAILYP PRN Headache 11/07/23 11/19/23 History tablet (Nurtec ODT) hydrocodone 5 mg-acetaminophen 325 1 - 2 tab PO Q6H PRN Pain #13 tabs 11/12/23 11/19/23 Rx mg tablet New Prescriptions to Start Prescriptions: hydrocodone-acetaminophen Arsenio Marshall Allergies Allergy/AdvReac Type Severity Reaction Status Date / Time aspirin Allergy Verified 11/19/23 10:31 codeine Allergy Verified 11/19/23 10:31 Discharge Plan Disposition Patient Disposition: Home, Self-Care Discharge Order Discharge Orders: Discharge Order (Routine); Ordered 11/12/23 Ordered By: Arsenio Marshall Follow up Plan Follow up with: Brandy Morgan MD [Referring] - 11/25/23 2:30 pm Arsenio Marshall MD [Staff Physician] - 11/19/23 1:15 pm Prescriptions/Medication Reconciliation: New hydrocodone-acetaminophen 5-325 mg Tablet 1 - 2 tab PO Q6H PRN (Reason: Pain) Qty: 13 0RF Continued amitriptyline 100 mg tablet 100 mg PO HS ondansetron 4 mg tablet,disintegrating 4 mg PO Q8HP PRN (Reason: Nausea And Vomiting) Qty: 14 0RF lisinopril 5 mg tablet 5 mg PO DAILY Nurtec ODT 75 mg tablet,disintegrating 75 mg PO DAILYP PRN (Reason: Headache) Problem Reconciliation Problems Reviewed?: Yes Patient Discharge Instructions ACTIVITY: No heavy lifting DIET: other Additional Instructions: Low residue diet Patient Instructions: DI for Surgical Site Infection Providers Primary Care Provider: Provider,Referral Admit Provider: Arsenio Marshall Attending Provider: Arsenio Marshall
== END 2023-11-12 08:35 | disposition home or self-care (01) | DRG 331 ==
PROVIDERS: Internal Medicine Adolescent Medicine; Admitting Provider Surgery; Visit Provider Surgery
PROC: 0DBB0ZZ Excision of Ileum, Open Approach (ICD-10-PCS; CPT 44620; principal; 2023-11-07 07:30)
DX: Z43.2 Encounter for attention to ileostomy (principal); E78.5 Hyperlipidemia, unspecified; K21.9 Gastro-esophageal reflux disease without esophagitis; F17.210 Nicotine dependence, cigarettes, uncomplicated; E21.3 Hyperparathyroidism, unspecified; I12.9 Hypertensive chronic kidney disease with stage 1 through stage 4 chronic kidney disease, or unspecified chronic kidney disease; E83.52 Hypercalcemia; F32.A Depression, unspecified; N18.31 Chronic kidney disease, stage 3a; Z79.899 Other long term (current) drug therapy
CPT/HCPCS: 44620; 36415; 74018; 74021; 80048; 80053; 81001; 83735; 84100; 85007; 85025; 96372; 96374; J2405; J2710; J7120

== ENCOUNTER 2023-11-14 08:10 | Outpatient (CLI) | payer OTHER, SELFPAY ==
--- NOTE | 2023-11-14 08:11 | NM_ITS ---
FINAL REPORT CLINICAL HISTORY: Parathyroid Adenoma COMPARISON: 04/13/2022 FINDINGS: 21.5 mCi Technetium 99-M Sestamibi was administered. Planar imaging was performed immediately and at 2 hours of the neck and upper thorax. The immediate and 2-hour delayed images demonstrate persistent abnormal uptake in the projection of the lower pole of the left lobe of the thyroid. This appears similar to the previous exam and is concerning for the presence of a parathyroid adenoma or parathyroid hyperplasia. IMPRESSION: Findings concerning for the presence of a parathyroid adenoma or parathyroid hyperplasia in the lower pole of the left lobe of the thyroid, similar to the prior exam. Correlation with ultrasound may be of value. Reviewed, Interpreted and Dictated by Azar Zavaleta MD Transcribed by Luz Woods Authenticated and [facility]
[2023-11-14] MEDS: SODIUM CHLORIDE 0.9% 10ML SYR (RAD ONLY) 10 ML IV (08:40)
[2023-11-14] MEDS: ISO TC99M (SESTAMIBI);1 DOSE VIAL IV (10:49)
== END 2023-11-14 23:59 | disposition home or self-care (01) ==
LOC: RAD 08:11
PROVIDERS: PCP Family Medicine; Visit Provider Nurse Practitioner
DX: D35.1 Benign neoplasm of parathyroid gland (principal)
CPT/HCPCS: 78070; 78071; A9500

== ENCOUNTER 2024-05-28 09:43 | Outpatient (CLI) | payer MEDICARE, SELFPAY ==
--- NOTE | 2024-05-28 09:47 | CT_ITS ---
FINAL REPORT TECHNIQUE: Axial images through the abdomen and pelvis were performed without contrast.This study was performed with techniques to keep radiation doses as low as reasonably achievable, (ALARA). Individualized dose reduction techniques using automated exposure control or adjustment of mA and/or kV according to the patient's size were employed. CLINICAL HISTORY: INCISIONAL HERNIA COMPARISON: 05/03/2023 FINDINGS: ABDOMEN: Mild atelectasis or scarring is seen at the lung bases. The heart size is normal. The liver is mildly fatty infiltrated. The spleen is normal. No adrenal mass is identified. The aorta is normal in caliber. There is no significant free fluid or adenopathy. There are multiple small, bilateral, nonobstructing renal stones measuring less than 3 mm. There is no hydronephrosis. There are bilateral renal masses likely representing cysts. Moderate vascular calcifications are seen. There is a supraumbilical midline ventral hernia containing a portion of a loop of transverse colon. A second midline ventral hernia is seen, more inferiorly containing a nonobstructed loop of small bowel. PELVIS: The appendix is not identified. There is a third hernia in the upper pelvis which contains a nonobstructed loop of distal ileum. There has been interval reversal of right pelvic ileostomy. There has been interval resolution of air and fluid in the anterior pelvic abdominal wall. There are postoperative changes at the rectosigmoid colon. There is mild urinary bladder wall thickening which is likely inflammatory. Several sigmoid diverticula are noted. There is no significant free fluid or adenopathy. IMPRESSION: Abdominal wall hernias as above containing nonobstructed bowel. Renal masses likely representing cysts. Nonobstructing renal stones. Reviewed, Interpreted and Dictated by Arsenio Garcias III, MD Transcribed by Amberly Saenz Authenticated and [facility]
== END 2024-05-28 23:59 | disposition home or self-care (01) ==
LOC: RAD 09:44
PROVIDERS: PCP Family Medicine; Visit Provider Nurse Practitioner Family
DX: K43.2 Incisional hernia without obstruction or gangrene (principal)
CPT/HCPCS: 74176